=== PATIENT | female | born 1985 | race Two or more races ===

== ENCOUNTER 2020-07-17 10:04 | Outpatient (REF) | payer MEDICAID, SELFPAY ==
[2020-07-17 19:44] LABS: CT PCR NOT DETECTED (Not Detect.); NG PCR NOT DETECTED (Not Detect.)
[2020-07-18 09:32] LABS: BV Int Neg Control Negative (Negative); BV Int Pos Control Positive (Positive)
== END 2020-07-17 10:05 | disposition home or self-care (01) ==
LOC: HO.LAB 10:04
PROVIDERS: Visit Provider Advanced Practice Midwife
DX: Z01.419 Encounter for gynecological examination (general) (routine) without abnormal findings (principal); N89.8 Other specified noninflammatory disorders of vagina; I86.2 Pelvic varices; R10.2 Pelvic and perineal pain
CPT/HCPCS: 87480; 87491; 87510; 87591; 87660

== ENCOUNTER 2020-07-31 15:58 | Outpatient (REF) | payer MEDICAID, SELFPAY ==
--- NOTE | 2020-07-31 16:04 | US_ITS ---
EXAMINATION: US PELVIS TRANSVAGINAL CLINICAL INFORMATION: Pelvic varices COMPARISON: CT of March 17, 2020 and ultrasound of October 24, 2012 TECHNIQUE: Transcutaneous and transvaginal pelvic ultrasound. Transvaginal scanning was performed after voiding to better evaluate the endometrium and adnexa. FINDINGS: The uterus measures 9.6 x 4.6 x 5.8 cm. The uterus is retroverted. 3 mm nabothian cyst present. No suspicious abnormalities region of the cervix. The uterine contour is smooth. The endometrium measures 0.9 cm. No focal abnormalities within the myometrium. The right ovary measures approximately 2.9 x 2.1 x 1.4 cm. The calculated right ovarian volume is approximately 4.5 mL. No right adnexal mass identified. Normal vascularity to the ovary is present. There are numerous prominent ovarian/uterine veins present. The left ovary measures 3.5 x 1.4 x 1.9 cm. The calculated left ovarian volume is approximately 4.9 mL. No abnormal left adnexal masses are identified. There is normal venous and arterial flow within the ovary. Prominent uterine and ovarian veins are present. There is a small amount of free pelvic fluid. US/US pelvic complete IMPRESSION: Prominent ovarian/uterine veins. No significant uterine or ovarian abnormality appreciated.
--- NOTE | 2020-07-31 16:04 | US_ITS ---
EXAMINATION: US PELVIS TRANSVAGINAL CLINICAL INFORMATION: Pelvic varices COMPARISON: CT of March 17, 2020 and ultrasound of October 24, 2012 TECHNIQUE: Transcutaneous and transvaginal pelvic ultrasound. Transvaginal scanning was performed after voiding to better evaluate the endometrium and adnexa. FINDINGS: The uterus measures 9.6 x 4.6 x 5.8 cm. The uterus is retroverted. 3 mm nabothian cyst present. No suspicious abnormalities region of the cervix. The uterine contour is smooth. The endometrium measures 0.9 cm. No focal abnormalities within the myometrium. The right ovary measures approximately 2.9 x 2.1 x 1.4 cm. The calculated right ovarian volume is approximately 4.5 mL. No right adnexal mass identified. Normal vascularity to the ovary is present. There are numerous prominent ovarian/uterine veins present. The left ovary measures 3.5 x 1.4 x 1.9 cm. The calculated left ovarian volume is approximately 4.9 mL. No abnormal left adnexal masses are identified. There is normal venous and arterial flow within the ovary. Prominent uterine and ovarian veins are present. There is a small amount of free pelvic fluid. US/US transvaginal IMPRESSION: Prominent ovarian/uterine veins. No significant uterine or ovarian abnormality appreciated.
== END 2020-07-31 15:59 | disposition home or self-care (01) ==
LOC: HO.US 15:58
PROVIDERS: PCP Family Medicine; Visit Provider Advanced Practice Midwife
DX: I86.2 Pelvic varices (principal); R10.2 Pelvic and perineal pain
CPT/HCPCS: 76830; 76856

== ENCOUNTER → 2020-08-14 11:30 | Outpatient (BNVA) | payer MEDICAID, SELFPAY | PROVIDERS: PCP Family Medicine; Visit Provider Advanced Practice Midwife | DX: Z76.89 Persons encountering health services in other specified circumstances (principal) ==

== ENCOUNTER 2020-08-25 06:57 | Emergency (ER) | payer MEDICAID, SELFPAY ==
[2020-08-25 07:01] VITALS: BP 148/88; PULSE 73; RESP 18; TEMP 36.8; O2SAT 100; BMI 79.4
--- NOTE | 2020-08-25 07:23 | CT_ITS ---
EXAMINATION: CT ABDOMEN AND PELVIS WITH CONTRAST CLINICAL INFORMATION: Right lower quadrant pain COMPARISON: None TECHNIQUE: Multidetector volumetric images were obtained from the superior aspect of the liver through the pubic symphysis following administration 85 mL of Omnipaque 350 intravenous contrast. Sagittal and coronal reformatted images were obtained on the technologist's workstation. Oral contrast: No This CT examination was performed using dose optimization techniques as appropriate, variously including the following: *Automated exposure control *Adjustment of mA and/or kV according to patient size (this includes techniques or standardized protocols for targeted exams where dose is matched to indication/reason for exam; i.e. extremities or head) *Use of iterative reconstruction technique DLP: 799 mGy-cm FINDINGS: LUNG BASES: The visualized lung bases are unremarkable. LIVER, GALLBLADDER, AND BILIARY TREE: The liver is normal in size, shape, and attenuation. No focal hepatic lesion or biliary ductal dilatation is present. Gallbladder unremarkable. PANCREAS: Unremarkable. SPLEEN: Unremarkable. ADRENAL GLANDS: Unremarkable. KIDNEYS AND URETERS: The kidneys are normal in size, shape, and attenuation. No hydronephrosis, hydroureter, or calculi seen. No perinephric stranding. BLADDER: Unremarkable. GASTROINTESTINAL TRACT: The small and large bowel are unremarkable. The appendix is unremarkable. ABDOMINAL WALL: No significant hernia is appreciated. LYMPH NODES: Normal. VASCULAR: Minimal calcific atherosclerotic plaque present within the distal aorta at the bifurcation. PELVIC VISCERA: Uterus and ovaries unremarkable from a CT imaging standpoint. OSSEOUS STRUCTURES: No acute or suspicious osseous abnormalities. CT/CT abdomen pelvis w con IMPRESSION: No acute findings within abdomen or pelvis to explain the patient's symptomatology.
--- NOTE | 2020-08-25 07:24 | ED_ITS ---
HPI - Abdominal Pain General Chief Complaint: Abdominal Pain Stated Complaint: Abd pain Time Seen by Provider: 08/25/20 07:15 Source: patient Mode of arrival: ambulatory Limitations: no limitations History of Present Illness HPI narrative: Patient comes emergency room complaining of right lower quadrant pain. Patient states she has had diffuse abdominal pain for approximately 3-4 days, however now is more localized towards the right. Patient complaining of nausea, no vomiting no diarrhea, complaining of chronic constipation, had a bowel movement this morning after using [id number] medication for consti pation. Patient states that approximately 2 weeks ago she had cervical biopsy done her OBGYN. Patient was being treated for bacterial vaginosis with Flagyl, she finished it about a week ago. Patient states she has been complaining of dysuria, denies flank pain, no fever. Related Data Previous Rx's Medication Instructions Recorded nystatin 100,000 unit/gram topical 1 applic TOPICAL BID #15 g 07/18/20 powder metronidazole 500 mg tablet 500 mg PO BID 7 Days #14 tab 07/24/20 norethindrone (contraceptive) 0.35 0.35 mg PO DAILY #28 tab 08/14/20 mg tablet hyoscyamine sulfate 0.125 mg PO QID PRN #10 tab 08/25/20 Allergies Allergy/AdvReac Type Severity Reaction Status Date / Time No Known Allergies Allergy Mild NOT Verified 08/14/20 11:31 APPLICABLE Review of Systems Review of Systems Constitutional : No Weight loss, No Fever, No Chills, complaining of generalized malaise ENT/Mouth : No Hearing loss, No Ear Pain, No Nasal Congestion, No Sinus Pain, No Hoarseness, No sore throat, No Rhinorrhea, No Swallowing Difficulty Eyes: No Eye Pain, No Swelling, No Redness, No Foreign Body, No Discharge, No Vision Changes Cardiovascular : No Chest Pain, No SOB, No Dyspnea on Exertion, No Orthopnea, No Edema, No Palpitations Respiratory : No Cough, No Sputum, No Wheezing, No Smoke Exposure, No Dyspnea Gastrointestinal : No Nausea, No Vomiting, No Diarrhea, complaining of constipation, diffuse abdominal pain for several days now worse over the right lower quadrant Genitourinary : no irregular bleeding, complaining of Dysuria for several weeks, No Urinary Frequency, No Hematuria, No Urinary Incontinence, No Urgency, No Flank Pain, No Urinary Flow Changes, No Hesitancy Musculoskeletal : No joint pain, No Myalgias, No Joint Swelling Skin : No Skin Lesions, No rash Neuro : No Weakness, No Numbness, No Paresthesias, No Loss of Consciousness, No Dizziness, No Headache Psych : No Anxiety/Panic, No Depression, No SI/HI/AH/VH, No Social Issues, Heme/Lymph: No Bruising, No Bleeding,No Lymphadenopathy Endocrine : No Polyuria, No Polydipsia, No Temperature Intolerance Physical Exam Vital Signs: Vital Signs: Last Vital Signs Temp 98.2 F 08/25/20 07:01 Pulse 73 08/25/20 07:01 Resp 16 08/25/20 08:25 BP 148/88 H 08/25/20 07:01 Pulse Ox 100 08/25/20 07:01 Body Mass Index 79.4 Appearance: Alert. Oriented X3. No acute distress. Eyes: Pupils equal, round and reactive to light. ENT: Pharynx normal. Neck: Normal inspection. Neck supple. No lymph nodes noted. No crepitus CVS: Normal heart rate and rhythm. Pulses normal. Normal S1 and S2 Respiratory: No respiratory distress. Breath sounds normal. No Wheezing. No rales Abdomen: Soft , pain to palpation over the right lower quadrant, mild rebound tenderness, no guarding, No rigidity. No distention. Skin: Skin warm and dry. Normal skin color. Normal skin turgor. Extremities: No lower extremity edema. No lower extremity edema. No Lacerations. No Rash Neuro: Oriented X 3. No motor deficit. No sensory deficit. Moving all extermities. No slurred speech. Course Course Course Narrative: I discussed the labs and imaging with the patient, no acute findings. Patient was tested for COVID-19, on CT scan of the abdomen, the lung bases are visualized, there are unremarkable. I discussed with the patient the CT scan is unremarkable, the appendix is unremarkable I discussed with the patient that this may be a sign of early appendicitis, at this time, her CT scan and lab work are reassuring, however this may be an early sign. Instructed to return to emergency room if she has any worsening pain or if she does not improve. MDM - Abdominal Pain Lab Data Result diagrams: 08/25/20 07:33 08/25/20 07:33 Labs: Lab Results 08/25/20 08/25/20 08/25/20 Range/Units 07:33 07:33 07:41 WBC 7.0 (4.8-10.8) X10*3/uL RBC 3.97 L (4.20-5.50) X10*6/uL Hgb 12.1 (12.0-16.0) g/dl Hct 36.1 L (37-47) % MCV 90.9 (80-98) fL MCH 30.5 (27.0-33.0) pg MCHC 33.5 (31.0-35.0) g/dl RDW 12.7 (11.0-16.0) % Plt Count 323 (160-400) X10*3/uL MPV 9.1 L (9.4-12.3) fL Immature Gran % (Auto) 0.1 (0.0-0.4) % Neut % (Auto) 65.5 (45-73) % Lymph % (Auto) 25.6 (20-40) % [place] % (Auto) 6.2 (2-11) % Eos % (Auto) 2.0 (0-4) % Baso % (Auto) 0.6 (0-2) % Lymph # (Auto) 1.8 (1.2-4.9) X10*3/uL [place] # (Auto) 0.4 (0.1-1.2) X10*3/uL Eos # (Auto) 0.1 (0.0-0.4) X10*3/uL Baso # (Auto) 0.0 (0.0-0.2) X10*3/uL Abs Immat Gran (auto) 0.01 (0.00-0.03) X10*3/uL Absolute Neuts (auto) 4.6 (2.0-8.3) X10*3/uL Absolute Nucleated RBC 0.000 (0.0-0.012) X10*3/uL Nucleated RBC % (auto) 0.0 (0.0-0.2) /100WBC Sodium 138 (135-145) mmol/L Potassium 4.1 (3.3-5.1) mmol/l Chloride 106 (96-108) mmol/L Carbon Dioxide 27 (22-29) mmol/L Anion Gap 9 L (12-20) BUN 13 (9-16) mg/dL Creatinine 0.65 (0.5-1.4) mg/dL Estim Creat Clear Calc 241.2 Estimated GFR > 60 Random Glucose 134 H (60-115) mg/dL Calcium 8.5 (8.4-10.2) mg/dL Total Bilirubin 0.3 (0.0-1.0) mg/dL Direct Bilirubin 0.2 (0.0-0.5) mg/dL AST 14 (5-31) U/L ALT 19 (0-31) U/L Alkaline Phosphatase 82 (39-117) U/L Total Protein 6.6 (6.5-8.0) g/dL Albumin 3.9 (3.5-5.0) g/dL Lipase 23 (8-78) U/L Urine Color YELLOW Urine Appearance CLEAR Urine pH 5.5 (5.0-8.0) Ur Specific [place] 1.025 (1.005-1.025) Urine Protein NEG (NEG-TRACE) MG/DL Urine Glucose (UA) NEG (NEG) MG/DL Urine Ketones NEG (NEG) MG/DL Urine Blood 2+ H (NEG) Urine Nitrite NEG (NEG) Ur Leukocyte Esterase NEG (NEG) Urine RBC 10-14 H (0) /HPF Urine WBC 0-2 (0-4) /HPF Ur Squamous Epith Cells 1+ /LPF Urine Bacteria NONE /LPF Urine Mucus 1+ /LPF Urine Test NEGATIVE (NEGATIVE) Imaging Data CT scan - abdomen: Radiologist's impression: FINDINGS: LUNG BASES: The visualized lung bases are unremarkable. LIVER, GALLBLADDER, AND BILIARY TREE: The liver is normal in size, shape, and attenuation. No focal hepatic lesion or biliary ductal dilatation is present. Gallbladder unremarkable. PANCREAS: Unremarkable. SPLEEN: Unremarkable. ADRENAL GLANDS: Unremarkable. KIDNEYS AND URETERS: The kidneys are normal in size, shape, and attenuation. No hydronephrosis, hydroureter, or calculi seen. No perinephric stranding. BLADDER: Unremarkable. GASTROINTESTINAL TRACT: The small and large bowel are unremarkable. The appendix is unremarkable. ABDOMINAL WALL: No significant hernia is appreciated. LYMPH NODES: Normal. VASCULAR: Minimal calcific atherosclerotic plaque present within the distal aorta at the bifurcation. PELVIC VISCERA: Uterus and ovaries unremarkable from a CT imaging standpoint. OSSEOUS STRUCTURES: No acute or suspicious osseous abnormalities. CT/CT abdomen pelvis w con IMPRESSION: No acute findings within abdomen or pelvis to explain the patient's symptomatology. Discharge Plan Discharge Clinical Impression: Abdominal pain Qualifiers: Abdominal location: right lower quadrant Qualified Code(s): R10.31 - Right lower quadrant pain Patient Disposition: Home, Self-Care Instructions: Abdominal Pain (ED) Additional Instructions: Your CT scan of the abdomen and lab values are stable, if you have any worsening right lower quadrant pain, any new symptoms, please return to the emergency room, as your current symptoms may be an early sign of early appendicitis. At this time, appendicitis is not suspected. Please follow-up with your primary care physician tomorrow. If you have any worsening or new symptoms, please return to the emergency room or call 911. We tested due for COVID-19, your results will be communicated to you if positive within 72 hours. Please remain self isolate until you get to results. If he tests positive, you must quarantine for 14 days Prescriptions: New hyoscyamine sulfate 0.125 mg tablet 0.125 mg PO QID PRN (Reason: dyspepsia) Qty: 10 RF: 0 No Action nystatin 100,000 unit/gram powder 1 applic topical BID Qty: 15 RF: 0 metronidazole [Flagyl] 500 mg tablet 500 mg PO BID 7 Days Qty: 14 RF: 0 norethindrone (contraceptive) 0.35 mg tablet 0.35 mg PO DAILY Qty: 28 RF: 8 PMFSH Past Medical History Medical History Pelvic varices Family History Family History Maternal Aunt Breast cancer in female Mother HTN (hypertension) Social History Social History Alcohol intake: never Smoking Status: Current every day smoker Tobacco Type: Cigarette Use of substances other than those prescribed or required for medical reasons: No Advance Directives: No Advance Directives Information Provided: No
[2020-08-25 07:39] LABS: MANUAL DIFF FLAG NO
[2020-08-25 07:40] LABS: Basophils Percent Auto 0.6 % (0-2); Eosinophils Absolute Auto 0.1 X10*3/uL (0.0-0.4); Hematocrit 36.1 % (37-47); Hemoglobin 12.1 g/dl (12.0-16.0); Imm Gran Abs Auto 0.01 X10*3/uL (0.00-0.03); Imm Gran Pct Auto 0.1 % (0.0-0.4); Lymphocytes Absolute Auto 1.8 X10*3/uL (1.2-4.9); Lymphocytes Percent Auto 25.6 % (20-40); Mean Corpuscular HGB Conc 33.5 g/dl (31.0-35.0); Mean Corpuscular Hemoglobin 30.5 pg (27.0-33.0); Mean Corpuscular Volume 90.9 fL (80-98); Mean Platelet Volume 9.1 fL (9.4-12.3); Monocytes Absolute Auto 0.4 X10*3/uL (0.1-1.2); Monocytes Percent Auto 6.2 % (2-11); Neutrophils Absolute Auto 4.6 X10*3/uL (2.0-8.3); Neutrophils Percent Auto 65.5 % (45-73); Platelet Count 323 X10*3/uL (160-400); Red Blood Count 3.97 X10*6/uL (4.20-5.50); Red Cell Distribution Width 12.7 % (11.0-16.0)
[2020-08-25] MEDS: 0.9 % Sodium Chloride 1,000 ML 999 ML IVCONT (07:40)
[2020-08-25 07:47] LABS: Glucose Urine UA NEG (NEG); Leukocyte Esterase Urine NEG (NEG); Nitrite Urine NEG (NEG); PH 5.5 (5.0-8.0); Specific Gravity - Urine 1.025 (1.005-1.025); Urine Blood 2+ (NEG); Urine Ketones NEG (NEG); Urine Protein NEG (NEG-TRACE)
[2020-08-25 08:06] LABS: Appearance Urine CLEAR; Color Urine YELLOW
[2020-08-25 08:07] LABS: Mucus Urine 1+ /LPF; Squamous Epithelial Cell Urine 1+ /LPF; WBC Urine 0-2 /HPF (0-4)
[2020-08-25 08:11] LABS: UPreg QC Valid YES; Urine Pregnancy NEGATIVE (NEGATIVE)
[2020-08-25 08:19] LABS: Alanine Aminotransferase 19 U/L (0-31); Albumin Level 3.9 g/dL (3.5-5.0); Alkaline Phosphatase 82 U/L (39-117); Aspartate Amino Transferase 14 U/L (5-31); Bilirubin Direct 0.2 mg/dL (0.0-0.5); Bilirubin Total 0.3 mg/dL (0.0-1.0); Blood Urea Nitrogen 13 mg/dL (9-16); Calcium 8.5 mg/dL (8.4-10.2); Creatinine Clr Calc Pharmacy 241.2; Estimated Glomerular Filt Rate > 60; Glucose Random 134 mg/dL (60-115); Lipase 23 U/L (8-78); Total Protein 6.6 g/dL (6.5-8.0)
[2020-08-25 08:25] VITALS: RESP 16
[2020-08-25 08:27] LABS: Anion Gap 9 (12-20); Carbon Dioxide 27 mmol/L (22-29); Chloride 106 mmol/L (96-108); Potassium 4.1 mmol/l (3.3-5.1); Sodium 138 mmol/L (135-145)
[2020-08-25] MEDS: iohexoL 350 MG/ML 100 ML INFUS..BTL 85 ML IV (08:58)
[2020-08-25] MEDS: Ketorolac Tromethamine 30 MG/ML VIAL IVPUSH (09:41)
== END 2020-08-25 10:21 | disposition home or self-care (01) ==
PROVIDERS: Emergency Provider Emergency Medicine; PCP Family Medicine
DX: R10.31 Right lower quadrant pain (principal); Z20.828 Contact with and (suspected) exposure to other viral communicable diseases; F17.210 Nicotine dependence, cigarettes, uncomplicated
CPT/HCPCS: 36415; 74177; 80048; 80076; 81001; 81003; 81025; 83690; 85025; 96361; 96374; 99284; J1885; Q9967; U0003

== ENCOUNTER → 2021-01-24 15:43 | Outpatient (BNVA) | payer MEDICAID, SELFPAY | PROVIDERS: PCP Family Medicine; Visit Provider Surgery | DX: K64.8 Other hemorrhoids (principal); K59.00 Constipation, unspecified; Z79.899 Other long term (current) drug therapy | CPT/HCPCS: 99202 ==

== ENCOUNTER → 2021-05-23 14:43 | Outpatient (BNVA) | payer MEDICAID, SELFPAY | PROVIDERS: PCP Family Medicine; Visit Provider Internal Medicine | DX: R07.2 Precordial pain (principal); E11.8 Type 2 diabetes mellitus with unspecified complications; E66.01 Morbid (severe) obesity due to excess calories | CPT/HCPCS: 93005; 99202 ==

== ENCOUNTER → 2021-08-03 08:40 | Outpatient (BNVA) | payer MEDICAID, SELFPAY | PROVIDERS: PCP Family Medicine; Referring Provider Family Medicine; Visit Provider Physician Assistant Surgical ==

== ENCOUNTER → 2021-08-08 08:21 | Outpatient (BNVA) | payer MEDICAID, SELFPAY | PROVIDERS: PCP Family Medicine; Visit Provider Surgery ==

== ENCOUNTER → 2021-11-21 13:01 | Outpatient (BNVA) | payer MEDICAID, SELFPAY | PROVIDERS: PCP Family Medicine; Referring Provider Family Medicine; Visit Provider Surgery | DX: K64.8 Other hemorrhoids (principal) | CPT/HCPCS: 99212 ==

== ENCOUNTER 2022-01-11 07:32 | Day surgery (SDC) | payer MEDICAID, SELFPAY ==
--- NOTE | 2022-01-09 13:18 | HO.ANESPROP2 ---
Documented by User: Radha Mathew NP 01/09/22 13:18 HPI - Anesthesia Eval Consult details Narrative: 36yo F for EUA,Hemorrhoidectomy PMFSH Active Problems Active Problems: All Active Problems (Updated 08/08/21 @ 11:32 by Meng Tavarez MD) BMI 35.0-35.9,adult (Acute) Obesity (Acute) Type 2 diabetes mellitus with unspecified complications (Acute) Morbid obesity (Acute) Precordial chest pain (Acute) Constipation (Acute) Hemorrhoids with complication (Acute) Surveillance for control, oral contraceptives (Acute) Dysuria (Acute) Yeast dermatitis (Acute) Pelvic varices (Acute) Well woman exam with routine gynecological exam (Acute) control counseling (Acute) Vaginal discharge (Acute) Pelvic pain (Acute) Past Medical History Medical History Constipation Hemorrhoids with complication Pelvic varices Family History Family History Maternal Aunt Breast cancer in female Mother HTN (hypertension) Social History Social History Alcohol intake: never Patient Tobacco Use Status: Current everyday Tobacco user Tobacco use type: Cigarette Cigarettes Per Day: 10 Years Smoked: 16 Smoked in Last 30 Days: Yes Use of substances other than those prescribed or required for medical reasons: No Are you DNR?: No Advance Directives: No Advance Directives Information Provided: Yes Patient : No Meds Allergies Allergy/AdvReac Type Severity Reaction Status Date / Time No Known Allergies Allergy Mild NOT Verified 01/11/22 08:35 APPLICABLE Home Medications Medication Instructions Recorded Confirmed Last Taken Type docusate sodium 100 mg capsule 100 mg PO DAILY 01/24/21 01/24/21 Unknown History (Colace) metformin 500 mg tablet 500 mg PO BID 08/08/21 08/08/21 Unknown History Exam Exam Date and Time: January 09, 2022 1318 Assessment and Plan Assessment Anesthesia Assessment: Chart Reviewed Documented by User: Bethel Busby MD 01/11/22 08:52 PMFSH Past Medical History Medical History Constipation Hemorrhoids with complication Pelvic varices Patient : No Family History Family History Maternal Aunt Breast cancer in female Mother HTN (hypertension) Family history of problems with anesthesia: No Surgical History History of Problems with Anesthesia: No Social History Social History Alcohol intake: never Patient Tobacco Use Status: Current everyday Tobacco user Tobacco use type: Cigarette Cigarettes Per Day: 10 Years Smoked: 16 Smoked in Last 30 Days: Yes Use of substances other than those prescribed or required for medical reasons: No Are you DNR?: No Advance Directives: No Advance Directives Information Provided: Yes Patient : No Meds Allergies Allergy/AdvReac Type Severity Reaction Status Date / Time No Known Allergies Allergy Mild NOT Verified 01/11/22 08:35 APPLICABLE Home Medications Medication Instructions Recorded Confirmed Last Taken Type docusate sodium 100 mg capsule 100 mg PO DAILY 01/24/21 01/24/21 Unknown History (Colace) metformin 500 mg tablet 500 mg PO BID 08/08/21 08/08/21 Unknown History Exam Airway Mallampati Class: I TM Dist: >3cm Neck ROM: Full Loose/Missing/Broken Teeth: No Heart: ok Lungs: ok Assessment and Plan Final Anesthetic Review Family History of Problems with Anesthesia: No History of Problems with Anesthesia: No NPO: Yes ASA Class: II Final Preanesthetic Review: No Changes in Pt Med Stat, Meds/Allgs Chart Reviewed, Consent Obtained/Reviewed and Anes Risks/Benef Reviewed Patient Risk: Intermediate Procedure Risk: Low Anesthetic Plan Anesthetic Plan: GA and Agree w/ Assess. and Plan Disposition: Standard PACU
[2022-01-11] VITALS (13 sets, daily range): BP systolic 101–141; BP diastolic 44–86; PULSE 58–74; RESP 14–18; TEMP 36.1–36.7; O2SAT 96–100; BMI 36.0
[2022-01-11 08:44] LABS: UPreg QC Valid YES; Urine Pregnancy NEGATIVE (NEGATIVE)
[2022-01-11 08:54] LABS: Glucose, Whole Blood 122 mg/dL (60-115)
--- NOTE | 2022-01-11 08:59 | MHC.SHP ---
Pre-Procedural Eval Section A Date of Service: 01/11/22 Section B Chief Complaint: hemorrhoids Details of Present Illness: has had worsening hemorrhoid pain and frequent swelling Relevant Social History: None Present Medications: see Short Stay Collaborative assessment Medical History: Significant History ( obesity, diabetes, atypical chest pain) History of Previous Operations: Relevant previous surgery/procedure and date(s) Allergies: Allergies Allergy/AdvReac Type Severity Reaction Status Date / Time No Known Allergies Allergy Mild NOT Verified 01/11/22 08:35 APPLICABLE Review of Systems Sugical H&P ROS: Negative: Constitution, Cardiovascular, Respiratory, Neurological, Psychiatric, Hem-Onc, Allergic/Immunologic, Gastrointestinal, Genitourinary, Musculoskeletal, Integumentary, Endocrine and Eyes/Ears/Nose/Throat Exam Surgical H&P Exam: Normal: HEENT, Normal: Heart, Normal: Lungs, Normal: Extremities, Normal: Abdomen, Normal: Skin and Normal: Neurological Exam Comment: prominent hemorrhoids right more than left Plan Diagnosis/Plan: Unchanged I have reviewed the history and physical and performed a pertinent physical examination on my patient. No changes have occurred unless specified.
[2022-01-11] MEDS: Lactated Ringers 1,000 ML 100 ML IVCONT (09:12)
--- NOTE | 2022-01-11 10:05 | W.PM.OPN ---
Operative Note Operative Note Date of Service: 01/11/22 Narrative: Preop diagnosis: Internal and external hemorrhoids with pain and bleeding Postop diagnosis: The same Procedure: Exam under anesthesia, hemorrhoidectomy x2 columns Surgeon: Tremaine Rainey MD The patient is a 36-year-old female with chronic problems with pain and bleeding with her hemorrhoidal columns. She wanted to therefore proceed with hemorrhoidectomy. She understood technique of the procedure. She was aware of the risks, benefits, and alternatives She was brought to the operating room. She was placed in prone serge-knife position under general anesthesia via laryngeal mask airway. The buttocks were retracted with wide tape laterally. The perianal area was prepped and draped in the usual sterile fashion. A surgical time-out was done. Examination of the anal orifice revealed bulky hemorrhoidal column on the right. There was a smaller hemorrhoidal column the left. I inserted a Bujennie Graham retractor and examined the anal canal circumferentially. Again these mixed hemorrhoidal columns on both the left and right side were seen. There were no lesions or any other pathology noted . I applied a Arizmendi grasper at the hemorrhoidal column on the right. This was retracted into the field. I made a figure of 8 stitch with a chromic 3-0 at the pedicle past the dentate line. I made an incision around the hemorrhoidal column all the way to the perianal skin using blade 15. I excised this hemorrhoidal column above the plane of the sphincters along this incision all the way to the pedicle. I closed the incision with a running chromic 3-0 stitch. Multiple hemostatic [id number] sutures were placed for oozing areas I then applied a Arizmendi grasper at the hemorrhoidal column on the left. I made a ribgab-[id number] stitch at the pedicle using chromic 3-0 and made an incision around this hemorrhoidal column all to the perianal skin using blade 15. I excised this hemorrhoidal column above the plane of sphincters using scissors. I closed this incision with a running chromic 3-0 stitch. Again prostatic feokpl-ee-ghuhw sutures were placed Once hemostasis was ensured, I proceeded to then infiltrated the perianal area with Marcaine 0.5% for postop analgesia. I placed a rolled Gelfoam as a packing into the anal canal. The procedure was then completed The patient tolerated procedure well. There were no complications noted. Initial and final counts sponges instruments were correct. Estimated blood loss was about 30 cc The patient was extubated without difficulty and transferred to the recovery room with stable vital signs.
--- NOTE | 2022-01-11 10:09 | PC.NURSE ---
Patient unable to remove jewelry (rings x2). Patient educated on risks of bringing metal into the OR. OR team aware of jewelry on.
[2022-01-11] MEDS: oxyCODONE HCl Immed Release 5 MG TABLET 10 MG PO (10:23)
[2022-01-11] MEDS: Acetaminophen 325 MG TABLET 650 MG PO (10:43)
[2022-01-11] MEDS: fentaNYL citrate/PF 100 MCG/2 ML VIAL 50 MCG IVPUSH ×2 (10:44→11:17)
[2022-01-11] MEDS: oxyCODONE HCl Immed Release 5 MG TABLET PO (11:15)
== END 2022-01-11 13:15 | disposition home or self-care (01) ==
PROVIDERS: Nurse Practitioner; PCP Family Medicine; Visit Provider Surgery
PROC: (CPT 46260; principal; 2022-01-11 10:00)
DX: K64.8 Other hemorrhoids (principal); K64.4 Residual hemorrhoidal skin tags; K59.00 Constipation, unspecified; I86.2 Pelvic varices; E11.9 Type 2 diabetes mellitus without complications; Z79.84 Long term (current) use of oral hypoglycemic drugs; E66.01 Morbid (severe) obesity due to excess calories; Z68.37 Body mass index [BMI] 37.0-37.9, adult; F17.210 Nicotine dependence, cigarettes, uncomplicated
CPT/HCPCS: 46260; 81025; 82947; 88304; J1100; J1885; J2250; J2405; J3010

== ENCOUNTER → 2022-01-25 15:19 | Outpatient (BNVA) | payer MEDICAID, SELFPAY | PROVIDERS: PCP Family Medicine; Visit Provider Surgery | DX: Z13.89 Encounter for screening for other disorder (principal) ==

== ENCOUNTER 2022-03-29 16:09 | Emergency (ER) | payer MEDICAID, SELFPAY ==
--- NOTE | ~2022-03-29 | CT_ITS ---
EXAMINATION: CT ABDOMEN AND PELVIS WITHOUT CONTRAST CLINICAL INFORMATION: Abdominal pain, urgency, evaluate for calculi versus pyelonephritis COMPARISON: CT abdomen pelvis 08/25/2020 TECHNIQUE: Multidetector volumetric imaging was performed from the superior aspect of the liver through the pubic symphysis. Sagittal and coronal reformatted images were obtained on the technologist's workstation. This CT examination was performed using dose optimization techniques as appropriate, variously including the following: *Automated exposure control *Adjustment of mA and/or kV according to patient size (this includes techniques or standardized protocols for targeted exams where dose is matched to indication/reason for exam; i.e. extremities or head) *Use of iterative reconstruction technique DLP: 849 mGy-cm FINDINGS: LUNG BASES: Unremarkable. ABDOMINAL AND PELVIC WALL: Unremarkable. LIVER AND BILIARY TREE: Hypoattenuating hepatic parenchyma suggesting hepatic steatosis. GALLBLADDER: Unremarkable. PANCREAS: Unremarkable. SPLEEN: Unremarkable. ADRENAL GLANDS: Unremarkable. KIDNEYS AND URETERS: No hydronephrosis or nephrolithiasis. Lack of intravenous contrast limits assessment for pyelonephritis however there is no asymmetric perinephric fat stranding to suggest underlying infection. GASTROINTESTINAL TRACT: Large and small bowel are unremarkable. No findings to suggest appendicitis. VASCULAR: Unremarkable. LYMPH NODES/PERITONEUM: No lymphadenopathy. FREE FLUID: Small volume of simple free fluid in the pelvic within physiologic limits of volume. BLADDER: Unremarkable. PELVIC VISCERA: Unremarkable. OSSEOUS STRUCTURES: Unremarkable. CT/CT abdomen pelvis wo con IMPRESSION: No hydronephrosis or nephrolithiasis. Lack of intravenous contrast limits assessment for pyelonephritis however there is no asymmetric perinephric fat stranding to suggest underlying infection. Hepatic steatosis.
[2022-03-29 16:18] VITALS: BP 146/90; PULSE 97; RESP 20; TEMP 36.4; O2SAT 96; BMI 37.5
[2022-03-29 16:35] LABS: MANUAL DIFF FLAG NO
[2022-03-29 16:36] LABS: Appearance Urine HAZY; Color Urine YELLOW; Glucose Urine UA NEG (NEG); Leukocyte Esterase Urine 1+ (NEG); Nitrite Urine NEG (NEG); PH 5.5 (5.0-8.0); Specific Gravity - Urine >= 1.030 (1.005-1.025); UACC Culture Trigger YES; Urine Blood NEG (NEG); Urine Ketones NEG (NEG); Urine Protein NEG (NEG-TRACE)
[2022-03-29 16:37] LABS: Glucose, Whole Blood 174 mg/dL (60-115)
[2022-03-29 16:44] LABS: Basophils Absolute Auto 0.1 X10*3/uL (0.0-0.2); Basophils Percent Auto 0.4 % (0-2); Eosinophils Absolute Auto 0.2 X10*3/uL (0.0-0.4); Eosinophils Percent Auto 1.4 % (0-4); Hematocrit 40.2 % (37.0-47.0); Hemoglobin 13.7 g/dl (12.0-16.0); Imm Gran Abs Auto 0.05 X10*3/uL (0.00-0.03); Imm Gran Pct Auto 0.4 % (0.0-0.4); Lymphocytes Absolute Auto 3.2 X10*3/uL (1.2-4.9); Lymphocytes Percent Auto 26.4 % (20-40); Mean Corpuscular HGB Conc 34.1 g/dl (31.0-35.0); Mean Corpuscular Hemoglobin 30.9 pg (27.0-33.0); Mean Corpuscular Volume 90.7 fL (80.0-98.0); Mean Platelet Volume 9.2 fL (9.4-12.3); Monocytes Absolute Auto 0.8 X10*3/uL (0.1-1.2); Monocytes Percent Auto 6.9 % (2-11); Neutrophils Absolute Auto 7.8 x10*3/uL (2.0-8.3); Neutrophils Percent Auto 64.5 % (45-73); Platelet Count 329 X10*3/uL (160-400); Red Blood Count 4.43 X10*6/uL (4.20-5.50); Red Cell Distribution Width 13.2 % (11.0-16.0)
[2022-03-29 16:51] LABS: Alanine Aminotransferase 56 U/L (0-31); Albumin Level 4.7 g/dL (3.5-5.0); Alkaline Phosphatase 97 U/L (39-117); Anion Gap 13 (12-20); Aspartate Amino Transferase 25 U/L (5-31); Bilirubin Total 0.5 mg/dL (0.0-1.0); Blood Urea Nitrogen 12 mg/dL (9-16); Calcium 9.6 mg/dL (8.4-10.2); Carbon Dioxide 26 mmol/L (22-29); Chloride 103 mmol/L (96-108); Creatinine Clr Calc Pharmacy 118.5; Estimated Glomerular Filt Rate > 60; Glucose Random 177 mg/dL (60-115); Sodium 138 mmol/L (135-145); Total Protein 8.2 g/dL (6.5-8.0)
[2022-03-29 17:19] LABS: Bacteria Urine 2+ /LPF; Calcium Oxalate Crystals Urine TRACE /LPF; Mucus Urine 1+ /LPF; Squamous Epithelial Cell Urine 4+ /LPF
[2022-03-29 17:22] LABS: Glucose, Whole Blood 163 mg/dL (60-115)
[2022-03-29 17:46] LABS: Lipase 26 U/L (8-78)
[2022-03-29 17:48] VITALS: BP 113/71; PULSE 72; RESP 18; O2SAT 96
[2022-03-29 17:52] LABS: HCG Quantitative < 2 mIU/mL
--- NOTE | 2022-03-29 17:52 | ED.ABDPAIN ---
HPI - Abdominal Pain General Chief Complaint: Abdominal Pain Stated Complaint: Abdominal pain Time Seen by Provider: 03/29/22 17:07 Source: patient Mode of arrival: ambulatory Limitations: no limitations History of Present Illness HPI narrative: Patient presents emergency department for evaluation of diffuse abdominal hand lower back pain. Symptom onset was 1.5 week she states that she was evaluated at an urgent care 3 days ago, was initially given a prescription for Cipro for urinary tract infection, but was contacted the next day and advised to stop taking the medication therefore she discarded it. She presents today as she continues to have persistent pain, in addition to mild dysuria and urinary urgency. Denies any history of renal calculi or recent urinary tract infection, no hematuria, no fevers, no chills, no incontinence. She has had some and associated nausea but no vomiting. Has had soft loose stools but no overt diarrhea. Related Data Home Medications Medication Instructions Recorded Confirmed docusate sodium 100 mg capsule 100 mg PO DAILY 01/24/21 01/24/21 (Colace) metformin 500 mg tablet 500 mg PO BID 08/08/21 08/08/21 Previous Rx's Medication Instructions Recorded docusate sodium 100 mg capsule 100 mg PO BID #60 caps 01/24/21 (Colace) ibuprofen 600 mg tablet 600 mg PO Q6H PRN pain #30 tabs 01/11/22 oxycodone-acetaminophen 5 mg-325 1 tab PO Q4-6H PRN pain, severe 01/29/22 mg tablet (Percocet) #10 tabs ciprofloxacin HCl 500 mg tablet 500 mg PO Q12H 7 days #14 tabs 03/29/22 Allergies Allergy/AdvReac Type Severity Reaction Status Date / Time No Known Allergies Allergy Mild NOT Verified 03/29/22 16:18 APPLICABLE Review of Systems Review of Systems Constitutional : No Weight loss, No Fever, No Chills ENT/Mouth :? No sore throat, No Rhinorrhea Eyes: No Swelling, No Redness Cardiovascular : No Chest Pain, No SOB, No Edema Respiratory : No Cough, No Sputum, No Wheezing Gastrointestinal : Positive Nausea, no Vomiting, no Diarrhea, positive abdominal pain, No Hematochezia, No Melena Genitourinary : Positive Dysuria, No Urinary Frequency, No Hematuria, positive Urgency? Musculoskeletal : No joint pain, No Myalgias, No Joint Swelling Skin : No Skin Lesions, No rash Neuro : No Weakness, No Numbness, No Dizziness, No Headache Psych : No Anxiety/Panic, No Depression Heme/Lymph: No Bruising, No Lymphadenopathy Endocrine : No Polyuria, No Polydipsia Yes all other systems are reviewed and are negative FORMERLY [facility], [facility] Past Medical History Attestation statement: The following information was validated with the patient. Source: old records reviewed Medical History Constipation Hemorrhoids with complication Pelvic varices Surgical History History of hemorrhoidectomy Family History Family History Maternal Aunt Breast cancer in female Mother HTN (hypertension) Social History Social History Alcohol intake: never Patient Tobacco Use Status: Current everyday Tobacco user Tobacco use type: Cigarette Cigarettes Per Day: 10 Years Smoked: 16 Use of substances other than those prescribed or required for medical reasons: No Advance Directives: No Advance Directives Information Provided: Yes Physical Exam ED Vital Signs: Vital Signs - 24 hr 03/29/22 16:18 03/29/22 17:48 03/29/22 19:06 Temperature 97.6 F 98.1 F Pulse Rate 97 72 70 Respiratory Rate 20 18 16 Blood Pressure 146/90 H 113/71 100/54 L Pulse Oximetry 96 96 98 Oxygen Delivery Method Room Air Room Air Room Air 03/29/22 19:43 Temperature 98.1 F Pulse Rate 64 Respiratory Rate 18 Blood Pressure 102/55 L Pulse Oximetry 98 Oxygen Delivery Method Room Air BMI result Body Mass Index 37.5 Appearance: Alert.?Oriented to person, place and time. No acute distress.?Normal affect. Eyes: Pupils equal, round and reactive to light.? ENT: Pharynx normal.?? Neck: Normal inspection.? Neck supple.?? CVS: Heart sounds normal. Normal heart rate and rhythm.? Pulses normal.?? Respiratory: No respiratory distress.? Lung sounds clear to auscultation bilaterally?? Abdomen: Soft and non-tender. Normoactive bowel sounds. No pulsatile mass.??Mild bilateral CVA tenderness. Negative Rovsing sign, negative obturator's sign, negative psoas sign, no guarding or rebound tenderness, no rigidity. Skin: Skin warm and dry.? Normal skin color.? ?? Extremities: No lower extremity edema.? Neuro: Moves all extremities spontaneously. Sensation intact bilaterally. No motor deficits Ambulates with normal steady gait. Mild bilateral CVA tenderness Course Course Course Narrative: Patient is a 36-year-old female presenting to emergency department for evaluation of abdominal pain, lower back pain, urinary symptoms. Reportedly had urinalysis done a few days ago but was advised not consistent with urinary tract infection. Abdominal exam is overall benign, not consistent with appendicitis, diverticulitis, cholecystitis. She does have some mild CVA tenderness, given her additional to urinary symptoms, will obtain CBC, CMP, urinalysis, and urine . Reevaluation(s) Reevaluation #1: Overall is well appearing, initially noted to have heart rate of 97, time of exam was 72, is afebrile, urinalysis reveals 1+ leuk esterase and WBC 10-14 cm however also 4+ squamous epithelial cells, there may be component of urogenital contamination, however given her urinary urgency, will treat with Rocephin, has mild bilateral CVA tenderness, will obtain CT of the abdomen to exclude pyelonephritis or nephrolithiasis. Low suspicion for urosepsis at this time, would defer blood cultures and lactic acid. Time: 17:52 Reevaluation #2: CT of the abdomen and pelvis is unremarkable. Tolerating p.o. fluids and solids without complication. Symptoms likely consistent to urinary tract infection or possible early pyelonephritis, discussed his findings with patient, will cover treatment with Cipro at this time, discussed worsening signs and symptoms to return back to the emergency department for, otherwise advised outpatient follow-up with her primary care provider within 3 days. She verbalized understanding, and was discharged home in stable condition. Time: 19:12 MDM - Abdominal Pain Medical Records Attestation: I reviewed the patient's medical records. Lab Data Attestation: I reviewed the patient's lab results. Result diagrams: 03/29/22 16:29 03/29/22 16:29 Labs: Lab Results 03/29/22 03/29/22 03/29/22 Range/Units 16:29 16:29 16:29 WBC 12.0 H (4.8-10.8) X10*3/uL RBC 4.43 (4.20-5.50) X10*6/uL Hgb 13.7 (12.0-16.0) g/dl Hct 40.2 (37.0-47.0) % MCV 90.7 (80.0-98.0) fL MCH 30.9 (27.0-33.0) pg MCHC 34.1 (31.0-35.0) g/dl RDW 13.2 (11.0-16.0) % Plt Count 329 (160-400) X10*3/uL MPV 9.2 L (9.4-12.3) fL Immature Gran % (Auto) 0.4 (0.0-0.4) % Neut % (Auto) 64.5 (45-73) % Lymph % (Auto) 26.4 (20-40) % [place] % (Auto) 6.9 (2-11) % Eos % (Auto) 1.4 (0-4) % Baso % (Auto) 0.4 (0-2) % Lymph # (Auto) 3.2 (1.2-4.9) X10*3/uL [place] # (Auto) 0.8 (0.1-1.2) X10*3/uL Eos # (Auto) 0.2 (0.0-0.4) X10*3/uL Baso # (Auto) 0.1 (0.0-0.2) X10*3/uL Abs Immat Gran (auto) 0.05 H (0.00-0.03) X10*3/uL Absolute Neuts (auto) 7.8 (2.0-8.3) x10*3/uL Absolute Nucleated RBC 0.000 (0.0-0.012) X10*3/uL Nucleated RBC % (auto) 0.0 (0.0-0.2) /100WBC Sodium 138 (135-145) mmol/L Potassium 4.0 (3.3-5.1) mmol/L Chloride 103 (96-108) mmol/L Carbon Dioxide 26 (22-29) mmol/L Anion Gap 13 (12-20) BUN 12 (9-16) mg/dL Creatinine 0.79 (0.5-1.4) mg/dL Estim Creat Clear Calc 118.5 Estimated GFR > 60 POC Glucose (60-115) mg/dL Random Glucose 177 H (60-115) mg/dL Calcium 9.6 D (8.4-10.2) mg/dL Total Bilirubin 0.5 (0.0-1.0) mg/dL AST 25 D (5-31) U/L ALT 56 H (0-31) U/L Alkaline Phosphatase 97 (39-117) U/L Total Protein 8.2 H D (6.5-8.0) g/dL Albumin 4.7 D (3.5-5.0) g/dL Lipase 26 (8-78) U/L Beta HCG, Quant < 2 mIU/mL Urine Color YELLOW Urine Appearance HAZY Urine pH 5.5 (5.0-8.0) Ur Specific [place] >= 1.030 H (1.005-1.025) Urine Protein NEG (NEG-TRACE) MG/DL Urine Glucose (UA) NEG (NEG) MG/DL Urine Ketones NEG (NEG) MG/DL Urine Blood NEG (NEG) Urine Nitrite NEG (NEG) Ur Leukocyte Esterase 1+ H (NEG) Urine RBC 1-4 (0) /HPF Urine WBC 10-14 H (0-4) /HPF Ur Squamous Epith Cells 4+ /LPF Calcium Oxalate Crystal TRACE /LPF Urine Bacteria 2+ /LPF Urine Mucus 1+ /LPF 03/29/22 03/29/22 Range/Units 16:33 17:18 WBC (4.8-10.8) X10*3/uL RBC (4.20-5.50) X10*6/uL Hgb (12.0-16.0) g/dl Hct (37.0-47.0) % MCV (80.0-98.0) fL MCH (27.0-33.0) pg MCHC (31.0-35.0) g/dl RDW (11.0-16.0) % Plt Count (160-400) X10*3/uL MPV (9.4-12.3) fL Immature Gran % (Auto) (0.0-0.4) % Neut % (Auto) (45-73) % Lymph % (Auto) (20-40) % [place] % (Auto) (2-11) % Eos % (Auto) (0-4) % Baso % (Auto) (0-2) % Lymph # (Auto) (1.2-4.9) X10*3/uL [place] # (Auto) (0.1-1.2) X10*3/uL Eos # (Auto) (0.0-0.4) X10*3/uL Baso # (Auto) (0.0-0.2) X10*3/uL Abs Immat Gran (auto) (0.00-0.03) X10*3/uL Absolute Neuts (auto) (2.0-8.3) x10*3/uL Absolute Nucleated RBC (0.0-0.012) X10*3/uL Nucleated RBC % (auto) (0.0-0.2) /100WBC Sodium (135-145) mmol/L Potassium (3.3-5.1) mmol/L Chloride (96-108) mmol/L Carbon Dioxide (22-29) mmol/L Anion Gap (12-20) BUN (9-16) mg/dL Creatinine (0.5-1.4) mg/dL Estim Creat Clear Calc Estimated GFR POC Glucose 174 H 163 H (60-115) mg/dL Random Glucose (60-115) mg/dL Calcium (8.4-10.2) mg/dL Total Bilirubin (0.0-1.0) mg/dL AST (5-31) U/L ALT (0-31) U/L Alkaline Phosphatase (39-117) U/L Total Protein (6.5-8.0) g/dL Albumin (3.5-5.0) g/dL Lipase (8-78) U/L Beta HCG, Quant mIU/mL Urine Color Urine Appearance Urine pH (5.0-8.0) Ur Specific [place] (1.005-1.025) Urine Protein (NEG-TRACE) MG/DL Urine Glucose (UA) (NEG) MG/DL Urine Ketones (NEG) MG/DL Urine Blood (NEG) Urine Nitrite (NEG) Ur Leukocyte Esterase (NEG) Urine RBC (0) /HPF Urine WBC (0-4) /HPF Ur Squamous Epith Cells /LPF Calcium Oxalate Crystal /LPF Urine Bacteria /LPF Urine Mucus /LPF Imaging Data CT scan - abdomen: Radiologist's impression: CT/CT abdomen pelvis wo con IMPRESSION: ? No hydronephrosis or nephrolithiasis.? Lack of intravenous contrast limits assessment for pyelonephritis however there is no asymmetric perinephric fat stranding to suggest underlying infection. ? Hepatic steatosis. Discharge Plan Discharge Clinical Impression: Urinary tract infection Patient Disposition: Home, Self-Care Instructions: Urinary Tract Infection in Women (ED) Additional Instructions: You have been given a prescription for an antibiotic, please complete this entire course. Be sure to stay well hydrated, drink plenty of fluids. Return to the emergency department any new or worsening symptoms or concerns such as fevers, nausea constant vomiting, severe worsening abdominal/back pain, inability to urinate Please contact your primary care provider to arrange for a follow-up visit within 3 days. Prescriptions: New ciprofloxacin HCl 500 mg tablet 500 mg PO Q12H 7 Days Qty: 14 0RF No Action oxycodone-acetaminophen [Percocet] 5-325 mg tablet 1 tab PO Q4-6H PRN (Reason: pain, severe) Qty: 10 0RF ibuprofen 600 mg tablet 600 mg PO Q6H PRN (Reason: pain) Qty: 30 0RF docusate sodium [Colace] 100 mg capsule 100 mg PO DAILY docusate sodium [Colace] 100 mg capsule 100 mg PO BID Qty: 60 2RF metformin 500 mg tablet 500 mg PO BID Interventions: ED Discharge Assessment Last Done: 03/29/22 19:48 Discharge Date/Time: 03/29/22 19:49
[2022-03-29] MEDS: ondansetron HCL 4 MG/2 ML VIAL IVPUSH (18:01)
[2022-03-29] MEDS: 0.9 % Sodium Chloride 1,000 ML 999 ML IV (18:02)
[2022-03-29] MEDS: cefTRIAXone sodium 1 GM in 0.9 % Sodium Chloride 50 ML IV (18:02)
[2022-03-29] MEDS: Ketorolac Tromethamine 30 MG/ML VIAL IVPUSH (18:47)
--- NOTE | 2022-03-29 19:04 | PC.NURSE ---
Assumed care of this pt. at 1900 - report from Nydia Jose RN
[2022-03-29 19:06] VITALS: BP 100/54; PULSE 70; RESP 16; TEMP 36.7; O2SAT 98
[2022-03-29 19:43] VITALS: BP 102/55; PULSE 64; RESP 18; TEMP 36.7; O2SAT 98
== END 2022-03-29 19:49 | disposition home or self-care (01) ==
PROVIDERS: Nurse Practitioner Family; Emergency Provider Student in an Organized Health Care Education/Training Program; PCP Family Medicine
DX: N39.0 Urinary tract infection, site not specified (principal); R10.9 Unspecified abdominal pain; M54.50 Low back pain, unspecified; Z79.899 Other long term (current) drug therapy; F17.210 Nicotine dependence, cigarettes, uncomplicated; Z71.6 Tobacco abuse counseling
CPT/HCPCS: 36415; 74176; 80053; 81001; 82947; 83690; 84702; 85025; 87086; 96365; 96375; 99284; 99285; J0696; J1885; J2405

== ENCOUNTER → 2022-05-14 09:27 | Outpatient (BNVA) | payer MEDICAID, SELFPAY | PROVIDERS: PCP Family Medicine; Visit Provider Nurse Practitioner Family | DX: R10.2 Pelvic and perineal pain (principal); K64.9 Unspecified hemorrhoids; K59.00 Constipation, unspecified | CPT/HCPCS: 99202 ==

== ENCOUNTER 2022-05-15 16:31 | Emergency (ER) | payer MEDICAID, SELFPAY ==
--- NOTE | ~2022-05-15 | CT_ITS ---
EXAMINATION: CT HEAD WITHOUT CONTRAST CLINICAL INFORMATION: Confusion. Headache. Left eye pain COMPARISON: CT head 10/19/2011 TECHNIQUE: Contiguous axial imaging was performed from the skull base to vertex without intravenous administration of contrast. Coronal and sagittal reformatted images are performed at the CT scanner. [This CT examination was performed using dose optimization techniques as appropriate, variously including the following: *Automated exposure control *Adjustment of mA and/or kV according to patient size (this includes techniques or standardized protocols for targeted exams where dose is matched to indication/reason for exam; i.e. extremities or head) *Use of iterative reconstruction technique] DLP: 731 mGy-cm. FINDINGS: There is no evidence of acute intracranial hemorrhage or territorial infarction. No abnormal mass-effect or midline shift is seen. Mc to white matter differentiation is well preserved. No extra-axial fluid collections are identified. The ventricles are normal in size. There is no abnormal attenuation within the brain parenchyma. There is no osseous abnormality. Mucosal thickening in AT the left maxillary sinus. Mucosal thickening in the ethmoid sinuses. Mastoid air cells and middle ear cavities are normally aerated. CT/CT head/brain wo IV con IMPRESSION: 1. No acute intracranial abnormality. 2. Sinus disease.
[2022-05-15 17:10] VITALS: BP 106/79; PULSE 84; RESP 18; TEMP 36.6; O2SAT 96; BMI 37.0
--- NOTE | 2022-05-15 17:22 | ED.GENADULT ---
HPI - General Adult General Chief complaint: Eye Problems Stated complaint: left eye pain Time Seen by Provider: 05/15/22 17:22 Source: patient Mode of arrival: ambulatory Limitations: no limitations History of Present Illness HPI narrative: Patient is a 37 year old female presenting to the emergency department today with left eye pain. Patient states that starting yesterday she began to have left eye pain and a headache with pressure. Patient denies any dizziness, lightheadedness, abdominal pain, nausea, vomiting, fever, chills, blurry vision, double vision, loss of vision, chest pain, difficulty breathing, shortness of breath, back pain, night sweats, pain with urination, increased urinary frequency, increased urinary urgency, blood in her urine or stool, syncope or a near syncopal episode, recent trauma or falls, bowel incontinence, bladder incontinence, bowel retention, bladder retention, or any other complaints at this time. Onset (ago): day(s) (1) Location: head and eyes (left) Severity: mild Severity scale (1-10): 2 Quality: aching and dull Pain Consistency: constant Relieving factors: none Exacerbating factors: none Associated symptoms: denies other symptoms Treatments prior to arrival: none Related Data Home Medications Medication Instructions Recorded Confirmed metformin 500 mg tablet 500 mg PO BID 08/08/21 08/08/21 Previous Rx's Medication Instructions Recorded ibuprofen 600 mg tablet 600 mg PO Q6H PRN pain #30 tabs 01/11/22 oxycodone-acetaminophen 5 mg-325 1 tab PO Q4-6H PRN pain, severe 01/29/22 mg tablet (Percocet) #10 tabs ciprofloxacin HCl 500 mg tablet 500 mg PO Q12H 7 days #14 tabs 03/29/22 docusate sodium 100 mg capsule 100 mg PO BEDTIME #90 caps 05/14/22 hydrocortisone 2.5 % topical cream 1 appl NE BID-QID PRN hemorrhoids 05/14/22 with perineal applicator #30 grams (Proctosol HC) methylcellulose (laxative) 500 mg 500 mg PO DAILY #90 tabs 05/14/22 tablet (Citrucel) doxycycline hyclate 100 mg tablet 100 mg PO BID 7 days #14 tabs 05/15/22 Allergies Allergy/AdvReac Type Severity Reaction Status Date / Time No Known Allergies Allergy Mild NOT Verified 05/14/22 09:32 APPLICABLE Review of Systems Constitutional: Constitutional: Reports no additional constitutional complaints, Denies chills, Denies fever(s), Reports headache(s) and Denies night sweats Eyes: Eyes: Reports no additional eye complaints, Denies blurry vision, Denies change in vision, Denies diplopia, Denies eye discharge, Denies loss of vision and Reports eye pain (around left eye) ENT: Denies dizziness and Reports headache(s) Cardiovascular: Cardiovascular: Reports no additional cardiovascular complaints, Denies chest pain, Denies lightheadedness, Denies Loss of Consciousness and Denies dyspnea Respiratory: Respiratory: Reports no additional respiratory complaints and Denies dyspnea Gastrointestinal: Gastrointestinal: Reports no additional gastrointestinal complaints, Denies abdominal pain, Denies melena, Denies hematochezia, Denies change in bowel habits and Denies change in stool character Genitourinary: Genitourinary: Denies hematuria, Denies urinary frequency, Denies dysuria, Denies urinary incontinence, Denies urinary hesitancy and Denies urinary urgency Musculoskeletal: Musculoskeletal: Reports no additional musculoskeletal complaints, Denies numbness and Denies tingling Neurologic: Denies dizziness, Reports headache(s), Denies loss of vision, Denies numbness and Denies tingling Psychiatric: Psychiatric: Reports no additional psychiatric complaints Endocrine: Endocrine: Reports no additional endocrine complaints Hematologic/Lymphatic: Hematologic/Lymphatic: Reports no additional hematologic/lymphatic complaints Allergic/Immunologic: Allergic/Immunologic: Reports no additional allergic/immunologic complaints PMFSH Past Medical History Attestation statement: The following information was validated with the patient. Source: old records reviewed Medical History Constipation Hemorrhoids with complication Pelvic varices Surgical History History of hemorrhoidectomy Family History Family History Maternal Aunt Breast cancer in female Mother HTN (hypertension) Social History Social History Alcohol intake: never Patient Tobacco Use Status: Current everyday Tobacco user Tobacco use type: Cigarette Cigarettes Per Day: 10 Years Smoked: 16 Advance Directives: No Advance Directives Information Provided: No Physical Exam ED Vital Signs: Vital Signs - 24 hr 05/15/22 17:10 Temperature 97.8 F Pulse Rate 84 Respiratory Rate 18 Blood Pressure 106/79 Pulse Oximetry 96 Oxygen Delivery Method Room Air BMI result Body Mass Index 37.0 Const General: cooperative, no acute distress, alert and awake Nutritional Appearance: well nourished Orientation/consciousness: patient oriented x3 Limitations: no limitations HENMT Head: Yes normal to inspection and Yes atraumatic Ears: hearing grossly normal bilaterally and external ears normal General nose exam: Normal external nose present, no nasal discharge noted and no epistaxis Face and sinus: Yes normal facial exam, No abrasion and No laceration Mouth: Normal oral and palatal mucosa present, no drooling and no muffled voice Eyes General: appearance normal, both eyes and all related structures Periorbital: periorbital findings normal Eyelids: Yes eyelids normal Conjunctivae: conjunctivae normal Pupils: Equal, round and reactive pupils present EOM: EOMs intact bilaterally Neck Neck: Yes normal visual inspection, Yes full ROM and Yes no lymphadenopathy Chest Chest palpation & inspection: normal inspection of the chest Resp Effort & Inspection: normal respiratory effort and able to speak in complete sentences Auscultation: clear to auscultation bilaterally Cardio Rate: regular rate Rhythm: regular rhythm GI Inspection: Yes normal to inspection Neuro General: patient oriented x3 and moves all extremities Cranial nerves: Yes Equal, round and reactive pupils present Cognition (Neuro): normal cognition Motor exam (neuro): 5/5 motor strength present throughout Sensory Exam: Normal double simultaneous stimulation for sensation Coordination: [id number] test normal Extrem General: Yes normal to inspection, Yes full ROM and Yes capillary refill normal Psych Appearance: grossly normal Mental Status: mental status grossly normal Affect: normal affect Attitude: cooperative Thought process: Normal thought process present Thought content: Normal thought content present Insight: Good insight present (Psych) Medical Decision Making MDM Narrative Medical decision making narrative: Patient is a 37 year old female presenting to the emergency department today with left eye pressure and a headache. Patient's physical exam was unremarkable. Patient's blood work was unremarkable. Patient's urine showed no acute process. Patient's EKG was unremarkable. Patient's head CT showed no acute process. Patient's clinical presentation is consistent with an acute sinusitis. I explained my physical exam findings as well as all test results to the patient. I answered all questions asked by the patient. I stressed the importance of the patient taking her medication as prescribed. I stressed the importance of the patient following up with her primary care provider and if the symptoms persist, an ENT. I stressed the importance of the patient returning to the emergency department immediately if her symptoms were to worsen or if she were to develop any dizziness, shortness of breath, difficulty breathing, chest pain, blurry vision, loss of vision, nausea, vomiting, abdominal pain, fever, chills, back pain, or any other complaints. Patient verbalized agreement and understanding with this treatment plan and discharge. Medical Records Medical records reviewed: Yes I reviewed the patient's medical records. Lab Data Lab results reviewed: Yes I reviewed the patient's lab results. Result diagrams: 05/15/22 17:55 05/15/22 17:55 Labs: Lab Results 05/15/22 05/15/22 Range/Units 17:55 17:55 WBC 10.4 (4.8-10.8) X10*3/uL RBC 4.14 L (4.20-5.50) X10*6/uL Hgb 12.8 (12.0-16.0) g/dl Hct 37.5 (37.0-47.0) % MCV 90.6 (80.0-98.0) fL MCH 30.9 (27.0-33.0) pg MCHC 34.1 (31.0-35.0) g/dl RDW 12.5 (11.0-16.0) % Plt Count 332 (160-400) X10*3/uL MPV 9.3 L (9.4-12.3) fL Immature Gran % (Auto) 0.3 (0.0-0.4) % Neut % (Auto) 55.6 (45-73) % Lymph % (Auto) 35.0 (20-40) % [place] % (Auto) 5.3 (2-11) % Eos % (Auto) 3.1 (0-4) % Baso % (Auto) 0.7 (0-2) % Lymph # (Auto) 3.7 (1.2-4.9) X10*3/uL [place] # (Auto) 0.6 (0.1-1.2) X10*3/uL Eos # (Auto) 0.3 (0.0-0.4) X10*3/uL Baso # (Auto) 0.1 (0.0-0.2) X10*3/uL Abs Immat Gran (auto) 0.03 (0.00-0.03) X10*3/uL Absolute Neuts (auto) 5.8 (2.0-8.3) x10*3/uL Absolute Nucleated RBC 0.000 (0.0-0.012) X10*3/uL Nucleated RBC % (auto) 0.0 (0.0-0.2) /100WBC Sodium 136 (135-145) mmol/L Potassium 4.2 (3.3-5.1) mmol/L Chloride 100 (96-108) mmol/L Carbon Dioxide 28 (22-29) mmol/L Anion Gap 12 (12-20) BUN 12 (9-16) mg/dL Creatinine 0.79 (0.5-1.4) mg/dL Estim Creat Clear Calc 120.6 Estimated GFR > 60 Random Glucose 274 H (60-115) mg/dL Calcium 9.0 D (8.4-10.2) mg/dL Total Bilirubin 0.5 (0.0-1.0) mg/dL AST 29 (5-31) U/L ALT 61 H (0-31) U/L Alkaline Phosphatase 100 (39-117) U/L C-Reactive Protein 0.55 H (< or = 0.50) mg/dL Total Protein 7.0 (6.5-8.0) g/dL Albumin 4.1 (3.5-5.0) g/dL Imaging Data CT scan - head: Attestation: I personally reviewed and interpreted this imaging study as follows: My impression: No acute fractures or bleed. Radiologist's impression: EXAMINATION: CT HEAD WITHOUT CONTRAST CLINICAL INFORMATION: Confusion. Headache. Left eye pain COMPARISON: CT head 10/19/2011 TECHNIQUE: Contiguous axial imaging was performed from the skull base to vertex without intravenous administration of contrast. Coronal and sagittal reformatted images are performed at the CT scanner. [This CT examination was performed using dose optimization techniques as appropriate, variously including the following: *Automated exposure control *Adjustment of mA and/or kV according to patient size (this includes techniques or standardized protocols for targeted exams where dose is matched to indication/reason for exam; i.e. extremities or head) *Use of iterative reconstruction technique] DLP: 731 mGy-cm. FINDINGS: There is no evidence of acute intracranial hemorrhage or territorial infarction. No abnormal mass-effect or midline shift is seen. Mc to white matter differentiation is well preserved. No extra-axial fluid collections are identified. The ventricles are normal in size. There is no abnormal attenuation within the brain parenchyma. There is no osseous abnormality. Mucosal thickening in AT the left maxillary sinus. Mucosal thickening in the ethmoid sinuses. Mastoid air cells and middle ear cavities are normally aerated. CT/CT head/brain wo IV con IMPRESSION: ? 1. No acute intracranial abnormality. 2. Sinus disease. ? Dictated By: Juan Troy MD Signed By: Electronically signed by Juan Troy MD 05/15/221813 Discharge Plan Discharge Clinical Impression: Sinusitis Patient Disposition: Home, Self-Care Instructions: Sinusitis (ED) Additional Instructions: Follow up with your primary care provider and an ENT specialist. Return to the emergency department immediately if your symptoms worsen or if you develop any dizziness, shortness of breath, difficulty breathing, chest pain, blurry vision, loss of vision, nausea, vomiting, abdominal pain, fever, chills, back pain, or any other complaints. Prescriptions: New doxycycline hyclate 100 mg tablet 100 mg PO BID 7 Days Qty: 14 0RF No Action oxycodone-acetaminophen [Percocet] 5-325 mg tablet 1 tab PO Q4-6H PRN (Reason: pain, severe) Qty: 10 0RF ciprofloxacin HCl 500 mg tablet 500 mg PO Q12H 7 Days Qty: 14 0RF ibuprofen 600 mg tablet 600 mg PO Q6H PRN (Reason: pain) Qty: 30 0RF metformin 500 mg tablet 500 mg PO BID docusate sodium 100 mg capsule 100 mg PO BEDTIME Qty: 90 3RF Citrucel 500 mg tablet 500 mg PO DAILY Qty: 90 2RF Rx Instructions: take it with full glass of water hydrocortisone [Proctosol HC] 2.5 % cream with perineal applicator 1 appl NE BID-QID PRN (Reason: hemorrhoids) Qty: 30 2RF Referrals: Casie Angulo DO [Primary Care Provider] - Melecio Nieto [Physician] - Print Language: Danish
[2022-05-15 18:05] LABS: MANUAL DIFF FLAG NO
[2022-05-15 18:23] LABS: Basophils Absolute Auto 0.1 X10*3/uL (0.0-0.2); Basophils Percent Auto 0.7 % (0-2); Eosinophils Absolute Auto 0.3 X10*3/uL (0.0-0.4); Eosinophils Percent Auto 3.1 % (0-4); Hematocrit 37.5 % (37.0-47.0); Hemoglobin 12.8 g/dl (12.0-16.0); Imm Gran Abs Auto 0.03 X10*3/uL (0.00-0.03); Imm Gran Pct Auto 0.3 % (0.0-0.4); Lymphocytes Absolute Auto 3.7 X10*3/uL (1.2-4.9); Mean Corpuscular HGB Conc 34.1 g/dl (31.0-35.0); Mean Corpuscular Hemoglobin 30.9 pg (27.0-33.0); Mean Corpuscular Volume 90.6 fL (80.0-98.0); Mean Platelet Volume 9.3 fL (9.4-12.3); Monocytes Absolute Auto 0.6 X10*3/uL (0.1-1.2); Monocytes Percent Auto 5.3 % (2-11); Neutrophils Absolute Auto 5.8 x10*3/uL (2.0-8.3); Neutrophils Percent Auto 55.6 % (45-73); Platelet Count 332 X10*3/uL (160-400); Red Blood Count 4.14 X10*6/uL (4.20-5.50); Red Cell Distribution Width 12.5 % (11.0-16.0); White Blood Count 10.4 X10*3/uL (4.8-10.8)
[2022-05-15 18:32] LABS: Alanine Aminotransferase 61 U/L (0-31); Albumin Level 4.1 g/dL (3.5-5.0); Alkaline Phosphatase 100 U/L (39-117); Anion Gap 12 (12-20); Aspartate Amino Transferase 29 U/L (5-31); Bilirubin Total 0.5 mg/dL (0.0-1.0); Blood Urea Nitrogen 12 mg/dL (9-16); C Reactive Protein 0.55 mg/dL (< or = 0.50); Carbon Dioxide 28 mmol/L (22-29); Chloride 100 mmol/L (96-108); Creatinine Clr Calc Pharmacy 120.6; Estimated Glomerular Filt Rate > 60; Glucose Random 274 mg/dL (60-115); Potassium 4.2 mmol/L (3.3-5.1); Sodium 136 mmol/L (135-145)
[2022-05-15 19:58] LABS: Erythrocyte Sedimentation Rate 16 MM/HR (0-20)
--- NOTE | 2022-05-15 20:05 | PC.NURSE ---
1900 PT AWAKE, ALERT AND ORIENTED X 3. SKIN WARM AND DRY. RESP UNLABORED. DENIES N/V. NO ACUTE DISTRESS NOTED. NEUROS INTACT. PLAN IS FOR DC HOME. PT AGREEABLE TO PLAN.
== END 2022-05-15 19:10 | disposition home or self-care (01) ==
PROVIDERS: Physician Assistant Medical; Emergency Provider Emergency Medicine Emergency Medical Services; PCP Family Medicine
DX: J32.0 Chronic maxillary sinusitis (principal); E11.9 Type 2 diabetes mellitus without complications; F17.210 Nicotine dependence, cigarettes, uncomplicated; Z79.84 Long term (current) use of oral hypoglycemic drugs
CPT/HCPCS: 36415; 70450; 80053; 85025; 85652; 86140; 99282; 99284

== ENCOUNTER 2022-07-31 11:05 | Outpatient (REF) | payer MEDICAID, SELFPAY ==
[2022-07-31 12:45] LABS: Appearance Urine Hazy; Color Urine Yellow; Glucose Urine UA 100 mg/dL (Negative); Leukocyte Esterase Urine Small (1+) (Negative); Nitrite Urine Negative (Negative); Specific Gravity - Urine 1.025 (1.005-1.025); UMIC TRIGGER UACC YES; Urine Blood Large (3+) (Negative); Urine Ketones Negative (Negative); Urine Protein Negative (Neg-Trace)
[2022-07-31 12:59] LABS: TSH reflex Free T4 1.09 uIU/mL (0.32-4.0)
[2022-07-31 13:03] LABS: UACC Culture Trigger YES; WBC Urine 0-5 /HPF (0-5)
[2022-07-31 13:04] LABS: Bacteria Urine 1+ (None Seen); Hyaline Casts Urine 0-2 /LPF (0-2)
[2022-07-31 13:12] LABS: Folate 13.9 ng/mL (> or = 4.0); Vitamin B12 729 pg/mL (200-900)
[2022-08-01 20:03] LABS: Transglutaminase Ab IgG <1.0 U/mL; Transglutaminase IgA <1.0 U/mL
== END 2022-07-31 11:06 | disposition home or self-care (01) ==
LOC: HO.LAB 11:05
PROVIDERS: PCP Family Medicine; Visit Provider Nurse Practitioner Family
DX: R10.9 Unspecified abdominal pain (principal); R19.7 Diarrhea, unspecified; K59.00 Constipation, unspecified; R10.2 Pelvic and perineal pain
CPT/HCPCS: 36415; 81001; 82607; 82746; 84443; 86364; 87086; 87147

== ENCOUNTER → 2022-08-14 11:21 | Outpatient (BNVA) | payer MEDICAID, SELFPAY | PROVIDERS: PCP Family Medicine; Visit Provider Nurse Practitioner Family | DX: K59.00 Constipation, unspecified (principal); M54.50 Low back pain, unspecified | CPT/HCPCS: 99212 ==

== ENCOUNTER 2022-08-15 10:11 | Emergency (ER) | payer MEDICAID, SELFPAY ==
--- NOTE | ~2022-08-15 | CT_ITS ---
EXAMINATION: CT ABDOMEN AND PELVIS WITHOUT CONTRAST CLINICAL INFORMATION: Bilateral flank pain. COMPARISON: 03/29/2022 TECHNIQUE: Multidetector volumetric imaging was performed from the superior aspect of the liver through the pubic symphysis. Sagittal and coronal reformatted images were obtained on the technologist's workstation. This CT examination was performed using dose optimization techniques as appropriate, variously including the following: *Automated exposure control *Adjustment of mA and/or kV according to patient size (this includes techniques or standardized protocols for targeted exams where dose is matched to indication/reason for exam; i.e. extremities or head) *Use of iterative reconstruction technique DLP: 806 mGy-cm FINDINGS: LUNG BASES: The visualized lung bases are unremarkable. LIVER, GALLBLADDER, AND BILIARY TREE: The liver is normal in size, shape, and attenuation. No focal hepatic lesion or biliary ductal dilatation is present. The gallbladder is unremarkable with no evidence of radiopaque gallstones, gallbladder wall thickening, or obvious pericholecystic inflammatory changes. PANCREAS: Unremarkable. SPLEEN: Unremarkable. ADRENAL GLANDS: Unremarkable. KIDNEYS AND URETERS: The kidneys are normal in size, shape, and attenuation. No hydronephrosis, hydroureter, or calculi seen. No perinephric stranding. BLADDER: Unremarkable. GASTROINTESTINAL TRACT: The stomach is unremarkable. Normal caliber small bowel. No obstruction. No colonic wall thickening or acute inflammation. No free air or free fluid. The appendix is not visualized. No inflammation in the region of the cecum to suggest appendicitis. ABDOMINAL WALL: No significant hernia is appreciated. LYMPH NODES: Normal. VASCULAR: Normal caliber aorta. Mild upper scrota calcification noted. PELVIC VISCERA: The uterus and adnexa are unremarkable. OSSEOUS STRUCTURES: Unremarkable. CT/CT abdomen pelvis wo IV con IMPRESSION: No acute findings in the abdomen or pelvis. No hydronephrosis or nephrolithiasis. Fleischner guidelines were followed.
[2022-08-15 10:36] VITALS: BP 126/83; PULSE 84; RESP 16; TEMP 36.8; O2SAT 96; BMI 34.9
--- NOTE | 2022-08-15 10:50 | ED_ITS ---
HPI - General Adult General Chief complaint: General Medical Stated complaint: lower back pain, kidneys hurt, nauseous Time Seen by Provider: 08/15/22 10:49 Source: patient Mode of arrival: ambulatory Limitations: no limitations History of Present Illness HPI narrative: 37-year-old female the past medical history of DM 2, obesity, status post hemorrhoidectomy, and COVID-19 diagnosis on 07/31/2022 presents to the emergency department complaints of bilateral lower back and flank pain, chills, nausea x3 weeks, and burning with urination. Patient was seen at her gastroenterology office yesterday, 08/14/22 for complaints of similar lower back pain when eating, using the bathroom, with bloating and difficulty moving her bowels. 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 Blood work and CT abdomen pelvis recommended by slab conditioner supervisor. At this time patient is describes pain as in mid lumbar region and bilateral flanks. She denies hematuria, fever, chills, or diarrhea. She denies any urinary incontinence or hesitancy, fecal incontinence, numbness, tingling, weakness in extremities, and denies saddle anesthesia. Onset (ago): day(s) (3) Location: back Radiation: flank Severity: moderate Quality: burning and aching Pain Consistency: constant Relieving factors: none Exacerbating factors: none Associated symptoms: denies other symptoms Treatments prior to arrival: none Related Data Home Medications Medication Instructions Recorded Confirmed metformin 500 mg tablet 500 mg PO BID 08/08/21 08/08/21 Previous Rx's Medication Instructions Recorded ibuprofen 600 mg tablet 600 mg PO Q6H PRN pain #30 tabs 01/11/22 oxycodone-acetaminophen 5 mg-325 1 tab PO Q4-6H PRN pain, severe 01/29/22 mg tablet (Percocet) #10 tabs ciprofloxacin HCl 500 mg tablet 500 mg PO Q12H 7 days #14 tabs 03/29/22 docusate sodium 100 mg capsule 100 mg PO BEDTIME #90 caps 05/14/22 hydrocortisone 2.5 % topical cream 1 appl TN BID-QID PRN hemorrhoids 05/14/22 with perineal applicator #30 grams (Proctosol HC) methylcellulose (laxative) 500 mg 500 mg PO DAILY #90 tabs 09/20/22 tablet (Citrucel) doxycycline hyclate 100 mg tablet 100 mg PO BID 7 days #14 tabs 05/15/22 linaclotide 145 mcg capsule 145 mcg PO DAILY #90 caps 08/14/22 (Linzess) cyclobenzaprine 5 mg tablet 5 mg PO TID PRN muscle spasm #14 08/15/22 tabs lidocaine 4 % topical patch 1 patch topical TID PRN pain #10 ea 08/15/22 naproxen 500 mg tablet 500 mg PO BID PRN pain #30 tabs 08/15/22 Allergies Allergy/AdvReac Type Severity Reaction Status Date / Time No Known Allergies Allergy Mild NOT Verified 08/14/22 11:44 APPLICABLE Review of Systems Review of Systems: In addition to documented HPI above, the additional ROS was obtained: Constitutional: No Weight loss, No Fever, No Chills ENT/Mouth: No Ear Pain, No Nasal Congestion, No Sinus Pain, No Hoarseness, No sore throat, No Rhinorrhea, No Swallowing Difficulty Cardiovascular: No Chest Pain, No SOB Respiratory: No Cough, No Sputum, No Wheezing Gastrointestinal: No Vomiting, No Diarrhea, No Constipation Genitourinary: No Urinary Frequency, No Urinary Incontinence/retention Musculoskeletal: No joint pain, No Myalgias, No Joint Swelling Skin: No Skin Lesions, No rash Neuro: No Weakness, No Numbness, No Paresthesias Yes all other systems are reviewed and are negative [facility] Past Medical History Attestation statement: The following information was validated with the patient. Source: old records reviewed Medical History Constipation Hemorrhoids with complication Pelvic varices Surgical History History of hemorrhoidectomy Family History Family History Maternal Aunt Breast cancer in female Mother HTN (hypertension) Social History Social History Alcohol intake: never Patient Tobacco Use Status: Current everyday Tobacco user Tobacco use type: Cigarette Cigarettes Per Day: 10 Years Smoked: 16 Advance Directives: No Physical Exam ED Vital Signs: Vital Signs - 24 hr 08/15/22 10:36 Temperature 98.3 F Pulse Rate 84 Respiratory Rate 16 Blood Pressure 126/83 Pulse Oximetry 96 Oxygen Delivery Method Room Air BMI result Body Mass Index 34.9 Const General: cooperative, alert and awake Nutritional Appearance: well nourished Orientation/consciousness: patient oriented x3 Limitations: no limitations HENMT Head: Yes normal to inspection, Yes normocephalic and Yes atraumatic Ears: hearing grossly normal bilaterally and external ears normal General nose exam: Normal external nose present and Normal nares present Face and sinus: Yes normal facial exam and Yes face symmetric Mouth: Normal oral and palatal mucosa present Eyes General: appearance normal, both eyes and all related structures Visual Rasmussen: normal visual rasmussen by confrontation Alignment and Position: alignment normal Periorbital: periorbital findings normal Eyelids: Yes eyelids normal Conjunctivae: conjunctivae normal Sclerae: sclerae normal Corneas: corneas normal Pupils: Equal, round and reactive pupils present EOM: EOMs intact bilaterally Neck Neck: Yes normal visual inspection, Yes full ROM and Yes no lymphadenopathy Chest Chest palpation & inspection: normal inspection of the chest Resp Effort & Inspection: normal respiratory effort, no cough and not labored Auscultation: clear to auscultation bilaterally, no crackles, no rhonchi and no wheezes Cardio Rate: regular rate Rhythm: regular rhythm GI Inspection: Yes normal to inspection Palpation (GI): Soft to palpation and nontender Auscultation: normal bowel sounds General: Yes CVA tenderness Back/Spine/Pelvis Back: CVA tenderness, No erythema, No warmth, No ecchymosis and back tenderness Cervical Spine: cervical ROM normal Thoracic/Lumbar Spine: thoraco-lumbar ROM normal Skin General skin exam: no rashes or lesions noted Neuro General: patient oriented x3, tone normal and moves all extremities Cranial nerves: Yes Equal, round and reactive pupils present Cognition (Neuro): normal cognition Gait exam (Neuro): Normal gait present Motor exam (neuro): 5/5 motor strength present throughout Psych Appearance: grossly normal Mental Status: mental status grossly normal Speech and movement: Normal speech and movement present Affect: normal affect Attitude: cooperative Thought process: Normal thought process present Thought content: Normal thought content present Medical Decision Making Medical Decision Making MDM Narrative: 37-year-old female the past medical history of DM 2, obesity, and COVID-19 diagnosis on 07/31/2022 presents to the emergency department complaints of bilateral lower back and flank pain, chills, nausea x3 weeks, and burning with urination. Blood work and urinalysis unremarkable. CT abdomen pelvis with no acute findings in the abdomen or pelvis, no hydronephrosis or nephrolithiasis. Physical exam with no step-offs or red flag symptoms.? Low back pain consistent with acute muscle strain.? Low suspicion of cauda equina, epidural abscess, lumbar stenosis. Pt is safe for discharge with the symptom management.? Prescriptions written for Flexeril, naproxen, and lidocaine topical patches.? HPI, physical exam, plan discussed with patient and family with no answer questions at this time.? Educated to return to the emergency department with new numbness, tingling, weakness, falls, fever, chills, or any other concerning symptoms.? Recommended follow-up with her primary care provider for further treatment and management. Lab Data MDM Lab Attestation statement: I reviewed the patient's lab results. Result Diagrams: 08/15/22 10:47 08/15/22 10:47 Labs: Lab Results 08/15/22 08/15/22 08/15/22 Range/Units 10:47 10:47 10:47 WBC 8.5 (4.8-10.8) X10*3/uL RBC 4.64 (4.20-5.50) X10*6/uL Hgb 14.2 (12.0-16.0) g/dl Hct 42.4 (37.0-47.0) % MCV 91.4 (80.0-98.0) fL MCH 30.6 (27.0-33.0) pg MCHC 33.5 (31.0-35.0) g/dl RDW 12.3 (11.0-16.0) % Plt Count 359 (160-400) X10*3/uL MPV 9.1 L (9.4-12.3) fL Immature Gran % (Auto) 0.4 (0.0-0.4) % Neut % (Auto) 66.2 (45-73) % Lymph % (Auto) 24.9 (20-40) % [place] % (Auto) 6.5 (2-11) % Eos % (Auto) 1.5 (0-4) % Baso % (Auto) 0.5 (0-2) % Lymph # (Auto) 2.1 (1.2-4.9) X10*3/uL [place] # (Auto) 0.6 (0.1-1.2) X10*3/uL Eos # (Auto) 0.1 (0.0-0.4) X10*3/uL Baso # (Auto) 0.0 (0.0-0.2) X10*3/uL Abs Immat Gran (auto) 0.03 (0.00-0.03) X10*3/uL Absolute Neuts (auto) 5.6 (2.0-8.3) x10*3/uL Absolute Nucleated RBC 0.000 (0.0-0.012) X10*3/uL Nucleated RBC % (auto) 0.0 (0.0-0.2) /100WBC Sodium 138 (135-145) mmol/L Potassium 4.2 (3.3-5.1) mmol/L Chloride 104 (96-108) mmol/L Carbon Dioxide 25 (22-29) mmol/L Anion Gap 13 (12-20) BUN 10 (9-16) mg/dL Creatinine 0.71 (0.5-1.4) mg/dL Estim Creat Clear Calc 134.4 Estimated GFR > 60 Random Glucose 156 H (60-115) mg/dL Calcium 9.6 D (8.4-10.2) mg/dL Urine Color Yellow Urine Appearance Clear Urine pH 5.5 (5.0-9.0) Ur Specific [place] 1.010 (1.005-1.025) Urine Protein Negative (Neg-Trace) mg/dL Urine Glucose (UA) Negative (Negative) mg/dL Urine Ketones Negative (Negative) mg/dL Urine Blood Negative (Negative) Urine Nitrite Negative (Negative) Ur Leukocyte Esterase Trace H (Negative) Urine RBC 0-2 (0-2) /HPF Urine WBC 0-5 (0-5) /HPF Ur Squamous Epith Cells 6-10 (0-2) /HPF Urine Bacteria Trace (None Seen) Hyaline Casts 0-2 (0-2) /LPF Urine Test (NEGATIVE) 08/15/22 Range/Units 10:47 WBC (4.8-10.8) X10*3/uL RBC (4.20-5.50) X10*6/uL Hgb (12.0-16.0) g/dl Hct (37.0-47.0) % MCV (80.0-98.0) fL MCH (27.0-33.0) pg MCHC (31.0-35.0) g/dl RDW (11.0-16.0) % Plt Count (160-400) X10*3/uL MPV (9.4-12.3) fL Immature Gran % (Auto) (0.0-0.4) % Neut % (Auto) (45-73) % Lymph % (Auto) (20-40) % [place] % (Auto) (2-11) % Eos % (Auto) (0-4) % Baso % (Auto) (0-2) % Lymph # (Auto) (1.2-4.9) X10*3/uL [place] # (Auto) (0.1-1.2) X10*3/uL Eos # (Auto) (0.0-0.4) X10*3/uL Baso # (Auto) (0.0-0.2) X10*3/uL Abs Immat Gran (auto) (0.00-0.03) X10*3/uL Absolute Neuts (auto) (2.0-8.3) x10*3/uL Absolute Nucleated RBC (0.0-0.012) X10*3/uL Nucleated RBC % (auto) (0.0-0.2) /100WBC Sodium (135-145) mmol/L Potassium (3.3-5.1) mmol/L Chloride (96-108) mmol/L Carbon Dioxide (22-29) mmol/L Anion Gap (12-20) BUN (9-16) mg/dL Creatinine (0.5-1.4) mg/dL Estim Creat Clear Calc Estimated GFR Random Glucose (60-115) mg/dL Calcium (8.4-10.2) mg/dL Urine Color Urine Appearance Urine pH (5.0-9.0) Ur Specific [place] (1.005-1.025) Urine Protein (Neg-Trace) mg/dL Urine Glucose (UA) (Negative) mg/dL Urine Ketones (Negative) mg/dL Urine Blood (Negative) Urine Nitrite (Negative) Ur Leukocyte Esterase (Negative) Urine RBC (0-2) /HPF Urine WBC (0-5) /HPF Ur Squamous Epith Cells (0-2) /HPF Urine Bacteria (None Seen) Hyaline Casts (0-2) /LPF Urine Test NEGATIVE (NEGATIVE) Radiology Impression Discussion of test interpretation with radiology: I have reviewed the radiologist's reading. Radiologist Impression: EXAMINATION: CT ABDOMEN AND PELVIS WITHOUT CONTRAST? CLINICAL INFORMATION: Bilateral flank pain.? COMPARISON: 03/29/2022? TECHNIQUE: Multidetector volumetric imaging was performed from the superior aspect of the liver through the pubic symphysis. Sagittal and coronal reformatted images were obtained on the technologist's workstation.? This CT examination was performed using dose optimization techniques as appropriate, variously including the following: *Automated exposure control *Adjustment of mA and/or kV according to patient size (this includes techniques or standardized protocols for targeted exams where dose is matched to indication/reason for exam; i.e. extremities or head) *Use of iterative reconstruction technique DLP: 806 mGy-cm FINDINGS: LUNG BASES: The visualized lung bases are unremarkable.? LIVER, GALLBLADDER, AND BILIARY TREE: The liver is normal in size, shape, and attenuation. No focal hepatic lesion or biliary ductal dilatation is present. The gallbladder is unremarkable with no evidence of radiopaque gallstones, gallbladder wall thickening, or obvious pericholecystic inflammatory changes.? PANCREAS: Unremarkable.? SPLEEN: Unremarkable.? ADRENAL GLANDS: Unremarkable.? KIDNEYS AND URETERS: The kidneys are normal in size, shape, and attenuation. No hydronephrosis, hydroureter, or calculi seen. No perinephric stranding. ? BLADDER: Unremarkable.? GASTROINTESTINAL TRACT: The stomach is unremarkable. Normal caliber small bowel. No obstruction. No colonic wall thickening or acute inflammation. No free air or free fluid. The appendix is not visualized. No inflammation in the region of the cecum to suggest appendicitis. ABDOMINAL WALL: No significant hernia is appreciated.? LYMPH NODES: Normal. VASCULAR: Normal caliber aorta. Mild upper scrota calcification noted. PELVIC VISCERA: The uterus and adnexa are unremarkable.? OSSEOUS STRUCTURES: Unremarkable.? CT/CT abdomen pelvis wo IV con IMPRESSION: No acute findings in the abdomen or pelvis. No hydronephrosis or nephrolithiasis. ? Fleischner guidelines were followed. Dictated By: Denver Zelaya MD Signed By: <Electronically signed by Denver Zelaya MD in [place]> 08/15/22 1227 DD/ 1144 TD/TT:? Restaurant Crew Member: DAVID Discharge Plan Discharge Clinical Impression: Back pain Patient Disposition: Home, Self-Care Instructions: Acute Low Back Pain (ED) Additional Instructions: Your CT abdomen/pelvis is negative for any acute findings, no hydronephrosis, or nephrolithiasis. No hernia. Kidneys are normal in size shape and no stones seen. Stomach is unremarkable. Uterus is unremarkable. Your blood work is unremarkable also. Three prescription have been sent to your preferred pharmacy for management of your low back pain. Please return to the emergency department with new numbness, tingling, weakness, falls, fever, chills, or any other concerning symptoms.? Recommended follow-up with her primary care provider for further treatment and management. DO NOT TAKE NAPROXEN WITH IBUPROFEN. Prescriptions: New lidocaine 4 % adhesive patch,medicated 1 patch topical TID PRN (Reason: pain) Qty: 10 0RF naproxen 500 mg tablet 500 mg PO BID PRN (Reason: pain) Qty: 30 0RF cyclobenzaprine 5 mg tablet 5 mg PO TID PRN (Reason: muscle spasm) Qty: 14 0RF No Action oxycodone-acetaminophen [Percocet] 5-325 mg tablet 1 tab PO Q4-6H PRN (Reason: pain, severe) Qty: 10 0RF ciprofloxacin HCl 500 mg tablet 500 mg PO Q12H 7 Days Qty: 14 0RF ibuprofen 600 mg tablet 600 mg PO Q6H PRN (Reason: pain) Qty: 30 0RF doxycycline hyclate 100 mg tablet 100 mg PO BID 7 Days Qty: 14 0RF metformin 500 mg tablet 500 mg PO BID docusate sodium 100 mg capsule 100 mg PO BEDTIME Qty: 90 3RF Citrucel 500 mg tablet 500 mg PO DAILY Qty: 90 2RF Rx Instructions: take it with full glass of water hydrocortisone [Proctosol HC] 2.5 % cream with perineal applicator 1 appl TN BID-QID PRN (Reason: hemorrhoids) Qty: 30 2RF Linzess 145 mcg capsule 145 mcg PO DAILY Qty: 90 3RF Referrals: [facility] [Provider Group] Casie Angulo DO [Primary Care Provider] - Stand Alone Forms: Work/School Release Print Language: Thai
[2022-08-15 11:01] LABS: MANUAL DIFF FLAG NO
[2022-08-15 11:02] LABS: Basophils Percent Auto 0.5 % (0-2); Eosinophils Absolute Auto 0.1 X10*3/uL (0.0-0.4); Eosinophils Percent Auto 1.5 % (0-4); Hematocrit 42.4 % (37.0-47.0); Hemoglobin 14.2 g/dl (12.0-16.0); Imm Gran Abs Auto 0.03 X10*3/uL (0.00-0.03); Imm Gran Pct Auto 0.4 % (0.0-0.4); Lymphocytes Absolute Auto 2.1 X10*3/uL (1.2-4.9); Lymphocytes Percent Auto 24.9 % (20-40); Mean Corpuscular HGB Conc 33.5 g/dl (31.0-35.0); Mean Corpuscular Hemoglobin 30.6 pg (27.0-33.0); Mean Corpuscular Volume 91.4 fL (80.0-98.0); Mean Platelet Volume 9.1 fL (9.4-12.3); Monocytes Absolute Auto 0.6 X10*3/uL (0.1-1.2); Monocytes Percent Auto 6.5 % (2-11); Neutrophils Absolute Auto 5.6 x10*3/uL (2.0-8.3); Neutrophils Percent Auto 66.2 % (45-73); Platelet Count 359 X10*3/uL (160-400); Red Blood Count 4.64 X10*6/uL (4.20-5.50); Red Cell Distribution Width 12.3 % (11.0-16.0); White Blood Count 8.5 X10*3/uL (4.8-10.8)
[2022-08-15 11:07] LABS: Appearance Urine Clear; Color Urine Yellow; Glucose Urine UA Negative (Negative); Leukocyte Esterase Urine Trace (Negative); Nitrite Urine Negative (Negative); PH 5.5 (5.0-9.0); UMIC TRIGGER UACC YES; Urine Blood Negative (Negative); Urine Ketones Negative (Negative); Urine Protein Negative (Neg-Trace)
[2022-08-15 11:12] LABS: Bacteria Urine Trace (None Seen); Hyaline Casts Urine 0-2 /LPF (0-2); RBC Urine 0-2 /HPF (0-2); WBC Urine 0-5 /HPF (0-5)
[2022-08-15 11:33] LABS: UPreg QC Valid YES; Urine Pregnancy NEGATIVE (NEGATIVE)
[2022-08-15 11:38] LABS: Anion Gap 13 (12-20); Blood Urea Nitrogen 10 mg/dL (9-16); Calcium 9.6 mg/dL (8.4-10.2); Carbon Dioxide 25 mmol/L (22-29); Chloride 104 mmol/L (96-108); Creatinine Clr Calc Pharmacy 134.4; Estimated Glomerular Filt Rate > 60; Glucose Random 156 mg/dL (60-115); Potassium 4.2 mmol/L (3.3-5.1); Sodium 138 mmol/L (135-145)
[2022-08-15 13:43] VITALS: BP 160/85; PULSE 92; RESP 16; O2SAT 98
== END 2022-08-15 13:45 | disposition home or self-care (01) ==
PROVIDERS: Emergency Provider Emergency Medicine Emergency Medical Services; PCP Family Medicine
DX: M54.50 Low back pain, unspecified (principal); R10.9 Unspecified abdominal pain; E11.9 Type 2 diabetes mellitus without complications; Z79.84 Long term (current) use of oral hypoglycemic drugs
CPT/HCPCS: 36415; 74176; 80048; 81001; 81003; 81025; 85025; 99283; 99284

== ENCOUNTER 2022-08-23 08:55 | Outpatient (REF) | payer MEDICAID, SELFPAY ==
--- NOTE | ~2022-08-23 | CT_ITS ---
EXAMINATION: CT ABDOMEN AND PELVIS WITH CONTRAST CLINICAL INFORMATION: Unspecified abdominal pain. COMPARISON: CT abdomen and pelvis 8 days ago on 08/15/[address] scan dating back to 03/17/2020. TECHNIQUE: Multidetector volumetric images were obtained from the superior aspect of the liver through the pubic symphysis following administration 85 mL of Omnipaque 350 intravenous contrast. Sagittal and coronal reformatted images were obtained on the technologist's workstation. Oral contrast: No This CT examination was performed using dose optimization techniques as appropriate, variously including the following: *Automated exposure control *Adjustment of mA and/or kV according to patient size (this includes techniques or standardized protocols for targeted exams where dose is matched to indication/reason for exam; i.e. extremities or head) *Use of iterative reconstruction technique DLP: 924 mGy-cm FINDINGS: LUNG BASES: The visualized lung bases are unremarkable. LIVER, GALLBLADDER, AND BILIARY TREE: The liver is normal in size, shape, and attenuation. No focal hepatic lesion or biliary ductal dilatation is present. The gallbladder is unremarkable with no evidence of radiopaque gallstones, gallbladder wall thickening, or obvious pericholecystic inflammatory changes. PANCREAS: Unremarkable. SPLEEN: Unremarkable. ADRENAL GLANDS: Unremarkable. KIDNEYS AND URETERS: The kidneys are normal in size, shape, and attenuation. No hydronephrosis, hydroureter, or calculi are seen. No perinephric stranding. BLADDER: Unremarkable. GASTROINTESTINAL TRACT: The stomach is unremarkable. Normal caliber small bowel. No obstruction. No colonic wall thickening or acute inflammation. No free air or free fluid. The appendix is not visualized. No inflammation in the region of the cecum to suggest appendicitis. ABDOMINAL WALL: No significant hernia is appreciated. LYMPH NODES: Normal. VASCULAR: The abdominal aorta is unremarkable aside from some infrarenal calcification. No aneurysms are seen. There is dilatation of the left ovarian vein which demonstrates reflux with associated pelvic varices, left greater than right. PELVIC VISCERA: The uterus and adnexa are unremarkable. There are pelvic varices, left greater than right. Please see discussion above. OSSEOUS STRUCTURES: Unremarkable. CT/CT abdomen pelvis w IV con IMPRESSION: 1. No acute abnormality within the abdomen or pelvis. 2. 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 This can be seen in the setting of pelvic congestion syndrome where a patient would experience pelvic pain aggravated with a prolonged upright position or sitting and relieved with the supine position. If the patient has such symptoms, she would benefit with consultation with an interventional radiologist.
[2022-08-23] MEDS: Barium Sulfate Oral (Vanilla) 450 ML ORAL.SUSP 900 ML PO (11:42)
[2022-08-23] MEDS: iohexoL 350 MG/ML 100 ML INFUS..BTL IV (11:43)
== END 2022-08-23 08:56 | disposition home or self-care (01) ==
LOC: HO.CT 08:55
PROVIDERS: PCP Family Medicine; Visit Provider Nurse Practitioner Family
DX: R10.12 Left upper quadrant pain (principal)
CPT/HCPCS: 74177; Q9967

== ENCOUNTER → 2022-09-18 11:49 | Outpatient (BNVA) | payer MEDICAID, SELFPAY | PROVIDERS: PCP Family Medicine; Visit Provider Nurse Practitioner Family | DX: K59.00 Constipation, unspecified (principal); K58.1 Irritable bowel syndrome with constipation; I86.2 Pelvic varices | CPT/HCPCS: 99212 ==

== ENCOUNTER 2022-10-12 08:30 | Emergency (ER) | payer MEDICAID, SELFPAY ==
--- NOTE | ~2022-10-12 | CT_ITS ---
EXAMINATION: CT ANGIOGRAM NECK WITH CONTRAST CT ANGIOGRAM BRAIN WITH CONTRAST CLINICAL INFORMATION: Left-sided numbness. COMPARISON: Head CT 05/15/2022. TECHNIQUE: Test bolus sequences followed by intravenous administration 70 mL of Omnipaque 350. Helical imaging was performed in the axial plane from the thoracic inlet to the skull vertex. Delayed postcontrast imaging of the head was also performed. The data was processed at the surgical scrub technologist workstation for generation of MIP sequences. Angled MIPs and volume rendered reformatted images were also generated at an offline 3D workstation under concurrent supervision. Stenoses are assessed in accordance with NASCET criteria unless otherwise indicated. This CT examination was performed using dose optimization techniques as appropriate, variously including the following: *Automated exposure control *Adjustment of mA and/or kV according to patient size (this includes techniques or standardized protocols for targeted exams where dose is matched to indication/reason for exam; i.e. extremities or head) *Use of iterative reconstruction technique FINDINGS: BRAIN: [There is no intracranial hemorrhage, hydrocephalus, extra-axial surface collection, midline shift, or other herniation pattern. Mc to white matter differentiation is diffusely maintained without evidence of an evolved acute territorial infarct. The basilar cisterns are preserved. No significant soft tissue abnormality. No acute osseous abnormality. There is a retention cyst within the left maxillary sinus. Periapical lucency surrounding the roots of the left first maxillary molar with overlying dehiscence of the left maxillary sinus floor predisposing to odontogenic sinusitis. CERVICAL SOFT TISSUES AND LUNG APICES: [Unremarkable. ] NECK CTA: Left common carotid artery arises from the brachiocephalic artery, an anatomic variant. Proximal arch vessels are non-stenotic. The vertebral arteries are codominant. No significant ostial stenosis is visualized on either side. Both vertebral arteries are widely patent throughout their extracranial cervical course. Both common carotid arteries are normal in course and caliber.] Retropharyngeal course of the right cervical internal carotid artery. BRAIN CTA: [There is normal opacification of major intracranial arteries. No focal flow-limiting stenosis nor discrete proximal large artery occlusion. No aneurysm. Timing of the contrast bolus allows assessment of the major dural venous sinuses, which all opacify normally] CT/CT angio head neck IMPRESSION: - No acute intracranial findings. - No acute arterial occlusions and no significant arterial stenoses within the head or neck. - There is a retention cyst within the left maxillary sinus. Periapical lucency surrounding the roots of the left first maxillary molar with overlying dehiscence of the left maxillary sinus floor predisposing to odontogenic sinusitis.
--- NOTE | ~2022-10-12 | XR_ITS ---
EXAMINATION: XR CHEST CLINICAL INFORMATION: Chest pain. COMPARISON: 05/27/2012. TECHNIQUE: Frontal view of the chest was obtained. FINDINGS: No significant abnormality is noted involving the heart, lungs, mediastinum, bony thorax or soft tissues. XR/XR chest 1V IMPRESSION: Unremarkable examination.
[2022-10-12 08:40] VITALS: BP 146/90; PULSE 86; RESP 16; TEMP 36.9; O2SAT 97; BMI 36.0
--- NOTE | 2022-10-12 08:43 | ECG_ITS ---
Test Reason : LIGHTHEADED Blood Pressure : / mmHG Vent. Rate : 078 BPM Atrial Rate : 078 BPM P-R Int : 168 ms QRS Dur : 096 ms QT Int : 366 ms P-R-T Axes : 017 014 024 degrees QTc Int : 417 ms Normal sinus rhythm Normal ECG No previous ECGs available Referred By: Killian [place] Electronically Signed By:Chung [place]
--- NOTE | 2022-10-12 08:44 | ED.GENADULT ---
HPI - General Adult General Chief complaint: Dizziness Stated complaint: lightheaded nausea l side numbness Time Seen by Provider: 10/12/22 08:36 Source: patient Mode of arrival: ambulatory Limitations: no limitations History of Present Illness HPI narrative: THIS IS A 37 YEARS OLD OF FEMALE PRESENTED TO THE EMERGENCY DEPARTMENT WITH CHIEF COMPLAINT OF LIGHTHEADEDNESS, NAUSEA, LEFT ARM PAIN LEFT ARM NUMBNESS. DID DENIES ANY CHEST PAIN SHORTNESS OF BREATH FEVER CHILLS VOMITING Onset (ago): hour(s) (4) Location: head and upper extremity (LEFT ARM) Radiation: non-radiation Severity: mild Quality: burning Pain Consistency: constant Relieving factors: none Exacerbating factors: none Related Data Home Medications Medication Instructions Recorded Confirmed metformin 500 mg tablet 500 mg PO BID 08/08/21 08/08/21 Previous Rx's Medication Instructions Recorded ibuprofen 600 mg tablet 600 mg PO Q6H PRN pain #30 tabs 01/11/22 oxycodone-acetaminophen 5 mg-325 1 tab PO Q4-6H PRN pain, severe 01/29/22 mg tablet (Percocet) #10 tabs ciprofloxacin HCl 500 mg tablet 500 mg PO Q12H 7 days #14 tabs 03/29/22 docusate sodium 100 mg capsule 100 mg PO BEDTIME #90 caps 05/14/22 hydrocortisone 2.5 % topical cream 1 appl MO BID-QID PRN hemorrhoids 05/14/22 with perineal applicator #30 grams (Proctosol HC) methylcellulose (laxative) 500 mg 500 mg PO DAILY #90 tabs 05/14/22 tablet (Citrucel) doxycycline hyclate 100 mg tablet 100 mg PO BID 7 days #14 tabs 05/15/22 cyclobenzaprine 5 mg tablet 5 mg PO TID PRN muscle spasm #14 08/15/22 tabs lidocaine 4 % topical patch 1 patch topical TID PRN pain #10 ea 08/15/22 naproxen 500 mg tablet 500 mg PO BID PRN pain #30 tabs 08/15/22 linaclotide 290 mcg capsule 290 mcg PO QAM #30 caps 09/18/22 (Linzess) Allergies Allergy/AdvReac Type Severity Reaction Status Date / Time No Known Allergies Allergy Mild NOT Verified 09/18/22 11:59 APPLICABLE Review of Systems Review of Systems: Yes all other systems are reviewed and are negative ENT: Reports system reviewed and no additional complaints, except as documented Cardiovascular: Cardiovascular: Reports no additional cardiovascular complaints Respiratory: Respiratory: Reports no additional respiratory complaints Musculoskeletal: Musculoskeletal: Reports no additional musculoskeletal complaints PMF Past Medical History Medical History Constipation Hemorrhoids with complication Pelvic varices Surgical History History of hemorrhoidectomy Family History Family History Maternal Aunt Breast cancer in female Mother HTN (hypertension) Social History Social History Alcohol intake: current Alcohol intake frequency: holidays/special occasions only Patient Tobacco Use Status: Current everyday Tobacco user Tobacco use type: Cigarette Cigarettes Per Day: 10 Years Smoked: 16 Smoked in Last 30 Days: Yes Use of substances other than those prescribed or required for medical reasons: No Advance Directives: No Advance Directives Information Provided: No Physical Exam ED Vital Signs: Vital Signs - 24 hr 10/12/22 08:40 10/12/22 12:11 Temperature 98.5 F Pulse Rate 86 69 Respiratory Rate 16 14 Blood Pressure 146/90 H 101/67 Pulse Oximetry 97 98 Oxygen Delivery Method Room Air Room Air BMI result Body Mass Index 36.0 SHE LOOKS WELL SHE HAS NO TOXIC-APPEARING SHE IS NOT IN DISTRESS Const General: cooperative, comfortable, no acute distress, well developed and alert Nutritional Appearance: well nourished Orientation/consciousness: patient oriented x3 Limitations: no limitations [facility] Head: Yes normal to inspection Ears: hearing grossly normal bilaterally General nose exam: Normal nares present Face and sinus: Yes normal facial exam Mouth: Normal oral and palatal mucosa present Neck Neck: Yes normal visual inspection and Yes full ROM Chest Chest palpation & inspection: normal inspection of the chest Resp Effort & Inspection: normal respiratory effort Auscultation: clear to auscultation bilaterally Cardio Jugular venous distension: no JVD Rate: regular rate Rhythm: regular rhythm GI Inspection: Yes normal to inspection Palpation (GI): Soft to palpation, not firm, nontender and no guarding Skin General skin exam: no rashes or lesions noted and elasticity normal Rashes: no rashes Neuro General: patient oriented x3 Cranial nerves: Yes CN's II-XII intact bilaterally Cognition (Neuro): normal cognition Motor exam (neuro): 5/5 motor strength present throughout Course Reevaluation(s) Reevaluation #1: She is feeling much better now,numbness gone.Vital stable cta head and neck ok will d/c home Time: 12:35 Medications Administered Discontinued Medications Generic Name Dose Route Start Last Admin Trade Name Freq PRN Reason Stop Dose Admin Iohexol 100 ml 10/12/22 10:45 10/12/22 10:45 Iohexol 350 Mg/Ml 100 Ml Infus..Btl IV 10/12/22 10:46 70 ml ONCE ONE Administration Ketorolac Tromethamine 30 mg 10/12/22 11:53 10/12/22 12:10 Ketorolac Tromethamine 30 Mg/Ml Vial IVPUSH 10/12/22 11:54 30 mg ONCE ONE Administration Medical Decision Making Medical Decision Making [facility] Narrative: PRESSURE PRESENTED WITH A TENDERNESS NAUSEA LEFT-SIDED NUMBNESS IN THE ARM WILL GO AHEAD AND DO LABS /EKG /HEAD AND REASSESS 12:35 w/u completed labs OK/CTA head and neck OK/EKG normal will d/c home Differential Diagnosis Differential Diagnoses: The differential diagnosis associated with the presentation includes CERVICAL BRACHIALGIA/ANXIETY/ACS/TIA Admission/Observation Consideration of admission/observation: Escalation of care including admission/observation considered Lab Data [facility] Lab Attestation statement: I reviewed the patient's lab results. 10/12/22 08:57 10/12/22 08:57 Labs: Lab Results 10/12/22 10/12/22 10/12/22 Range/Units 08:57 08:57 08:57 WBC 8.0 (4.8-10.8) X10*3/uL RBC 4.49 (4.20-5.50) X10*6/uL Hgb 13.8 (12.0-16.0) g/dl Hct 40.6 (37.0-47.0) % MCV 90.4 (80.0-98.0) fL MCH 30.7 (27.0-33.0) pg MCHC 34.0 (31.0-35.0) g/dl RDW 12.4 (11.0-16.0) % Plt Count 353 (160-400) X10*3/uL MPV 8.9 L (9.4-12.3) fL Immature Gran % (Auto) 0.2 (0.0-0.4) % Neut % (Auto) 69.5 (45-73) % Lymph % (Auto) 22.2 (20-40) % [place] % (Auto) 5.9 (2-11) % Eos % (Auto) 1.6 (0-4) % Baso % (Auto) 0.6 (0-2) % Lymph # (Auto) 1.8 (1.2-4.9) X10*3/uL [place] # (Auto) 0.5 (0.1-1.2) X10*3/uL Eos # (Auto) 0.1 (0.0-0.4) X10*3/uL Baso # (Auto) 0.1 (0.0-0.2) X10*3/uL Abs Immat Gran (auto) 0.02 (0.00-0.03) X10*3/uL Absolute Neuts (auto) 5.6 (2.0-8.3) x10*3/uL Absolute Nucleated RBC 0.000 (0.0-0.012) X10*3/uL Nucleated RBC % (auto) 0.0 (0.0-0.2) /100WBC Sodium 137 (135-145) mmol/L Potassium 4.6 (3.3-5.1) mmol/L Chloride 103 (96-108) mmol/L Carbon Dioxide 24 (22-29) mmol/L Anion Gap 15 (12-20) BUN 9 (9-16) mg/dL Creatinine 0.76 (0.5-1.4) mg/dL Estim Creat Clear Calc 123.4 Estimated GFR > 60 Random Glucose 305 H (60-115) mg/dL Calcium 9.3 (8.4-10.2) mg/dL Total Bilirubin 0.5 (0.0-1.0) mg/dL AST 22 (5-31) U/L ALT 41 H (0-31) U/L Alkaline Phosphatase 99 (39-117) U/L Troponin I High Sens < 3.5 (<3.5-17.0) ng/L Total Protein 7.4 (6.5-8.0) g/dL Albumin 4.3 (3.5-5.0) g/dL Beta HCG, Quant < 2 mIU/mL Urine Color Urine Appearance Urine pH (5.0-9.0) Ur Specific [place] (1.005-1.025) Urine Protein (Neg-Trace) mg/dL Urine Glucose (UA) (Negative) mg/dL Urine Ketones (Negative) mg/dL Urine Blood (Negative) Urine Nitrite (Negative) Ur Leukocyte Esterase (Negative) Urine RBC (0-2) /HPF Urine WBC (0-5) /HPF Ur Squamous Epith Cells (0-2) /HPF Urine Bacteria (None Seen) Hyaline Casts (0-2) /LPF Urine Test (NEGATIVE) Urine Opiates Screen (Not Detect) Urine Fentanyl Screen (Not Detect) Ur Barbiturates Screen (Not Detect) Ur Phencyclidine Scrn (Not Detect) Ur Amphetamines Screen (Not Detect) U Benzodiazepines Scrn (Not Detect) Urine Cocaine Screen (Not Detect) U Marijuana (THC) Screen (Not Detect) 10/12/22 10/12/22 10/12/22 Range/Units 10:55 10:55 10:55 WBC (4.8-10.8) X10*3/uL RBC (4.20-5.50) X10*6/uL Hgb (12.0-16.0) g/dl Hct (37.0-47.0) % MCV (80.0-98.0) fL MCH (27.0-33.0) pg MCHC (31.0-35.0) g/dl RDW (11.0-16.0) % Plt Count (160-400) X10*3/uL MPV (9.4-12.3) fL Immature Gran % (Auto) (0.0-0.4) % Neut % (Auto) (45-73) % Lymph % (Auto) (20-40) % [place] % (Auto) (2-11) % Eos % (Auto) (0-4) % Baso % (Auto) (0-2) % Lymph # (Auto) (1.2-4.9) X10*3/uL [place] # (Auto) (0.1-1.2) X10*3/uL Eos # (Auto) (0.0-0.4) X10*3/uL Baso # (Auto) (0.0-0.2) X10*3/uL Abs Immat Gran (auto) (0.00-0.03) X10*3/uL Absolute Neuts (auto) (2.0-8.3) x10*3/uL Absolute Nucleated RBC (0.0-0.012) X10*3/uL Nucleated RBC % (auto) (0.0-0.2) /100WBC Sodium (135-145) mmol/L Potassium (3.3-5.1) mmol/L Chloride (96-108) mmol/L Carbon Dioxide (22-29) mmol/L Anion Gap (12-20) BUN (9-16) mg/dL Creatinine (0.5-1.4) mg/dL Estim Creat Clear Calc Estimated GFR Random Glucose (60-115) mg/dL Calcium (8.4-10.2) mg/dL Total Bilirubin (0.0-1.0) mg/dL AST (5-31) U/L ALT (0-31) U/L Alkaline Phosphatase (39-117) U/L Troponin I High Sens (<3.5-17.0) ng/L Total Protein (6.5-8.0) g/dL Albumin (3.5-5.0) g/dL Beta HCG, Quant mIU/mL Urine Color Yellow Urine Appearance Clear Urine pH 8.0 (5.0-9.0) Ur Specific [place] >= 1.030 H (1.005-1.025) Urine Protein Negative (Neg-Trace) mg/dL Urine Glucose (UA) 100 H (Negative) mg/dL Urine Ketones Negative (Negative) mg/dL Urine Blood Negative (Negative) Urine Nitrite Negative (Negative) Ur Leukocyte Esterase Negative (Negative) Urine RBC 0-2 (0-2) /HPF Urine WBC 0-5 (0-5) /HPF Ur Squamous Epith Cells 3-5 (0-2) /HPF Urine Bacteria None Seen (None Seen) Hyaline Casts 0-2 (0-2) /LPF Urine Test NEGATIVE (NEGATIVE) Urine Opiates Screen Not Detected (Not Detect) Urine Fentanyl Screen Not Detected (Not Detect) Ur Barbiturates Screen Not Detected (Not Detect) Ur Phencyclidine Scrn Not Detected (Not Detect) Ur Amphetamines Screen Not Detected (Not Detect) U Benzodiazepines Scrn Not Detected (Not Detect) Urine Cocaine Screen Not Detected (Not Detect) U Marijuana (THC) Screen Not Detected (Not Detect) Independent Interpretation I performed an independent interpretation of an: EKG (Normal sinus rhythm rate [address]-T changes) and Plain X-Ray Interpretation: normal EKG / normal CXR Discharge Plan Discharge Clinical Impression: Paresthesia of arm Patient Disposition: Home, Self-Care Instructions: Paresthesia (ED) Additional Instructions: Follow-up with your primary care physician on Friday return to the emergency room if you worse any concern Prescriptions: No Action oxycodone-acetaminophen [Percocet] 5-325 mg tablet 1 tab PO Q4-6H PRN (Reason: pain, severe) Qty: 10 0RF ciprofloxacin HCl 500 mg tablet 500 mg PO Q12H 7 Days Qty: 14 0RF ibuprofen 600 mg tablet 600 mg PO Q6H PRN (Reason: pain) Qty: 30 0RF doxycycline hyclate 100 mg tablet 100 mg PO BID 7 Days Qty: 14 0RF lidocaine 4 % adhesive patch,medicated 1 patch topical TID PRN (Reason: pain) Qty: 10 0RF naproxen 500 mg tablet 500 mg PO BID PRN (Reason: pain) Qty: 30 0RF cyclobenzaprine 5 mg tablet 5 mg PO TID PRN (Reason: muscle spasm) Qty: 14 0RF metformin 500 mg tablet 500 mg PO BID docusate sodium 100 mg capsule 100 mg PO BEDTIME Qty: 90 3RF Citrucel 500 mg tablet 500 mg PO DAILY Qty: 90 2RF Rx Instructions: take it with full glass of water hydrocortisone [Proctosol HC] 2.5 % cream with perineal applicator 1 appl MO BID-QID PRN (Reason: hemorrhoids) Qty: 30 2RF Linzess 290 mcg capsule 290 mcg PO QAM Qty: 30 4RF Referrals: Casie Angulo DO [Primary Care Provider] - 10/15/22 Stand Alone Forms: Work/School Release Interventions: ED Discharge Assessment Last Done: 10/12/22 12:51 Discharge Date/Time: 10/12/22 12:51
[2022-10-12 09:00] LABS: MANUAL DIFF FLAG NO
[2022-10-12 09:02] LABS: Basophils Absolute Auto 0.1 X10*3/uL (0.0-0.2); Basophils Percent Auto 0.6 % (0-2); Eosinophils Absolute Auto 0.1 X10*3/uL (0.0-0.4); Eosinophils Percent Auto 1.6 % (0-4); Hematocrit 40.6 % (37.0-47.0); Hemoglobin 13.8 g/dl (12.0-16.0); Imm Gran Abs Auto 0.02 X10*3/uL (0.00-0.03); Imm Gran Pct Auto 0.2 % (0.0-0.4); Lymphocytes Absolute Auto 1.8 X10*3/uL (1.2-4.9); Lymphocytes Percent Auto 22.2 % (20-40); Mean Corpuscular Hemoglobin 30.7 pg (27.0-33.0); Mean Corpuscular Volume 90.4 fL (80.0-98.0); Mean Platelet Volume 8.9 fL (9.4-12.3); Monocytes Absolute Auto 0.5 X10*3/uL (0.1-1.2); Monocytes Percent Auto 5.9 % (2-11); Neutrophils Absolute Auto 5.6 x10*3/uL (2.0-8.3); Neutrophils Percent Auto 69.5 % (45-73); Platelet Count 353 X10*3/uL (160-400); Red Blood Count 4.49 X10*6/uL (4.20-5.50); Red Cell Distribution Width 12.4 % (11.0-16.0)
[2022-10-12 09:27] LABS: Alanine Aminotransferase 41 U/L (0-31); Albumin Level 4.3 g/dL (3.5-5.0); Alkaline Phosphatase 99 U/L (39-117); Anion Gap 15 (12-20); Aspartate Amino Transferase 22 U/L (5-31); Bilirubin Total 0.5 mg/dL (0.0-1.0); Blood Urea Nitrogen 9 mg/dL (9-16); Calcium 9.3 mg/dL (8.4-10.2); Carbon Dioxide 24 mmol/L (22-29); Chloride 103 mmol/L (96-108); Creatinine Clr Calc Pharmacy 123.4; Estimated Glomerular Filt Rate > 60; Glucose Random 305 mg/dL (60-115); Potassium 4.6 mmol/L (3.3-5.1); Sodium 137 mmol/L (135-145); Total Protein 7.4 g/dL (6.5-8.0)
[2022-10-12 09:29] LABS: Troponin-I High Sensitivity < 3.5 ng/L (<3.5-17.0)
[2022-10-12] MEDS: iohexoL 350 MG/ML 100 ML INFUS..BTL IV (10:45)
[2022-10-12 11:12] LABS: Appearance Urine Clear; Color Urine Yellow; Glucose Urine UA 100 mg/dL (Negative); Leukocyte Esterase Urine Negative (Negative); Nitrite Urine Negative (Negative); Specific Gravity - Urine >= 1.030 (1.005-1.025); Urine Blood Negative (Negative); Urine Ketones Negative (Negative); Urine Protein Negative (Neg-Trace)
[2022-10-12 11:15] LABS: Bacteria Urine None Seen (None Seen); Hyaline Casts Urine 0-2 /LPF (0-2); RBC Urine 0-2 /HPF (0-2); WBC Urine 0-5 /HPF (0-5)
[2022-10-12 11:20] LABS: HCG Quantitative < 2 mIU/mL
[2022-10-12 11:21] LABS: UPreg QC Valid YES; Urine Pregnancy NEGATIVE (NEGATIVE)
[2022-10-12 11:28] LABS: Amphetamine Screen Urine Not Detected (Not Detect); Barbiturates, Urine Not Detected (Not Detect); Benzodiazepines Screen Urine Not Detected (Not Detect); Cannabinoid Screen Urine Not Detected (Not Detect); Cocaine Screen Urine Not Detected (Not Detect); Fentanyl, urine Not Detected (Not Detect); Opiate Screen Urine Not Detected (Not Detect); Phencyclidine Screen Urine Not Detected (Not Detect)
[2022-10-12] MEDS: Ketorolac Tromethamine 30 MG/ML VIAL IVPUSH (12:10)
[2022-10-12 12:11] VITALS: BP 101/67; PULSE 69; RESP 14; O2SAT 98
== END 2022-10-12 12:51 | disposition home or self-care (01) ==
PROVIDERS: Emergency Provider Emergency Medicine; PCP Family Medicine
DX: R20.2 Paresthesia of skin (principal); R42 Dizziness and giddiness; E11.9 Type 2 diabetes mellitus without complications; F17.210 Nicotine dependence, cigarettes, uncomplicated; E66.9 Obesity, unspecified; Z68.36 Body mass index [BMI] 36.0-36.9, adult; Z79.84 Long term (current) use of oral hypoglycemic drugs; Z79.899 Other long term (current) drug therapy
CPT/HCPCS: 36415; 70496; 70498; 71045; 80053; 80307; 81001; 81025; 84484; 84702; 85025; 93005; 96374; 99284; 99285; J1885; Q9967

== ENCOUNTER → 2022-11-27 10:25 | Outpatient (BNVA) | payer MEDICAID, SELFPAY | PROVIDERS: PCP Family Medicine; Visit Provider Surgery | DX: K59.04 Chronic idiopathic constipation (principal); K62.89 Other specified diseases of anus and rectum | CPT/HCPCS: 46600; 99212 ==

== ENCOUNTER → 2022-12-17 15:27 | Outpatient (BNVA) | payer MEDICAID, SELFPAY | PROVIDERS: PCP Family Medicine; Visit Provider Nurse Practitioner Family | DX: K62.89 Other specified diseases of anus and rectum (principal); K59.04 Chronic idiopathic constipation; K58.2 Mixed irritable bowel syndrome; K21.9 Gastro-esophageal reflux disease without esophagitis | CPT/HCPCS: 99212 ==

== ENCOUNTER 2023-03-02 16:06 | Emergency (ER) | payer MEDICAID, SELFPAY ==
[2023-03-02 17:10] VITALS: BP 103/66; PULSE 79; RESP 18; TEMP 36.6; O2SAT 96; BMI 35.2
--- NOTE | 2023-03-02 17:23 | ED.GENADULT ---
HPI - General Adult General Chief complaint: General Medical Stated complaint: Chest pain/dizziness/feeling weak Time Seen by Provider: 03/02/23 19:36 Source: patient Mode of arrival: ambulatory Limitations: no limitations History of Present Illness HPI narrative: Patient complain of headache for last 1 week complaining of left-sided chest pain next to midsternal since early today which increased on palpation and movement no shortness of breath no cough no fever no chills Related Data Home Medications Medication Instructions Recorded Confirmed metformin 500 mg tablet 500 mg PO BID 08/08/21 08/08/21 Previous Rx's Medication Instructions Recorded ibuprofen 600 mg tablet 600 mg PO Q6H PRN pain #30 tabs 01/11/22 methylcellulose (laxative) 500 mg 500 mg PO DAILY #90 tabs 05/14/22 tablet (Citrucel) linaclotide 290 mcg capsule 290 mcg PO QAM #30 caps 09/18/22 (Linzess) docusate sodium 100 mg capsule 200 mg PO BEDTIME #180 caps 12/04/22 sennosides 8.6 mg tablet (Natural 17.2 mg PO BEDTIME constipation 12/04/22 Senna Laxative) #180 tabs hydrocortisone 2.5 % topical cream 1 appl LA BID-QID PRN hemorrhoids 12/17/22 with perineal applicator #30 grams (Proctosol HC) [id number] 1 cap PO Q6H PRN headache #20 caps 03/02/23 50 mg-300 mg-40 mg capsule (Fioricet) ibuprofen 600 mg tablet 600 mg PO Q6H PRN fever or pain 03/02/23 #30 tabs Allergies Allergy/AdvReac Type Severity Reaction Status Date / Time No Known Allergies Allergy Mild NOT Verified 03/02/23 17:13 APPLICABLE Review of Systems Review of Systems: Yes all other systems are reviewed and are negative [facility] Past Medical History Medical History Anal pain Constipation Hemorrhoids with complication Pelvic varices Surgical History History of hemorrhoidectomy Family History Family History Maternal Aunt Breast cancer in female Mother HTN (hypertension) Social History Social History Alcohol intake: current Alcohol intake frequency: holidays/special occasions only Patient Tobacco Use Status: Current everyday Tobacco user Tobacco use type: Cigarette Cigarettes Per Day: 10 Years Smoked: 16 Physical Exam ED Vital Signs: Vital Signs - 24 hr 03/02/23 17:10 03/02/23 20:14 Temperature 97.8 F 97.9 F Pulse Rate 79 66 Respiratory Rate 18 16 Blood Pressure 103/66 101/70 Pulse Oximetry 96 97 Oxygen Delivery Method Room Air Room Air BMI result Body Mass Index 35.2 Appearance: Alert. Oriented X3. No acute distress. Eyes: PERRLA, No Nystagmus ENT: Pharynx normal. Oral Mucosa moist Neck: Normal inspection. Neck supple. CVS: Normal heart rate and rhythm. Pulses normal. Tenderness left 2nd intercostal space Respiratory: No respiratory distress. Equal air entry bilateral, no wheezing/rales/rhonchi Abdomen: Soft and nontender. Bowel sounds are present, Skin: Skin warm and dry. Normal skin color. Normal skin turgor. Extremities: No lower extremity edema. No calf tenderness Neuro: Oriented X 3. No motor deficit. No sensory deficit.No cerebellar signs , cranial nerves II-XII intact Course Course Course Narrative: rme: 37 YOLD FEMALE PRESENTS TO THE ed FOR CHEST PAIN WEAKNESS FOR WEEKS. LABS ORDERED AND ekg Medications Administered Discontinued Medications Generic Name Dose Route Start Last Admin Trade Name Freq PRN Reason Stop Dose Admin Acetaminophen/Butalbital/Caffeine 1 tab 03/02/23 20:05 03/02/23 20:11 Butalb/Acetamin/Caff 50/325/40 Tablet PO 03/02/23 20:06 1 tab ONCE ONE Administration Ibuprofen 600 mg 03/02/23 20:05 03/02/23 20:11 Ibuprofen 600 Mg Tablet PO 03/02/23 20:06 600 mg ONCE ONE Administration Medical Decision Making Medical Decision Making MDM Narrative: Patient with heart score of 0 atypical chest pain EKG normal discharge patient home on ibuprofen Lab Data [facility] Lab Attestation statement: I reviewed the patient's lab results. 03/02/23 18:50 03/02/23 18:50 Labs: Lab Results 07/09/23 07/09/23 07/09/23 Range/Units 18:50 18:50 18:50 WBC 9.1 (4.8-10.8) X10*3/uL RBC 3.99 L (4.20-5.50) X10*6/uL Hgb 12.3 (12.0-16.0) g/dl Hct 36.6 L (37.0-47.0) % MCV 91.7 (80.0-98.0) fL MCH 30.8 (27.0-33.0) pg MCHC 33.6 (31.0-35.0) g/dl RDW 12.9 (11.0-16.0) % Plt Count 325 (160-400) X10*3/uL MPV 9.0 L (9.4-12.3) fL Immature Gran % (Auto) 0.2 (0.0-0.4) % Neut % (Auto) 52.2 (45-73) % Lymph % (Auto) 38.0 (20-40) % [place] % (Auto) 6.9 (2-11) % Eos % (Auto) 2.0 (0-4) % Baso % (Auto) 0.7 (0-2) % Lymph # (Auto) 3.5 (1.2-4.9) X10*3/uL [place] # (Auto) 0.6 (0.1-1.2) X10*3/uL Eos # (Auto) 0.2 (0.0-0.4) X10*3/uL Baso # (Auto) 0.1 (0.0-0.2) X10*3/uL Abs Immat Gran (auto) 0.02 (0.00-0.03) X10*3/uL Absolute Neuts (auto) 4.8 (2.0-8.3) x10*3/uL Absolute Nucleated RBC 0.000 (0.0-0.012) X10*3/uL Nucleated RBC % (auto) 0.0 (0.0-0.2) /100WBC PT (10.0-13.1) SEC INR (0.9-1.1) APTT (26.0-36.4) SEC Sodium 139 (135-145) mmol/L Potassium 3.8 (3.3-5.1) mmol/L Chloride 106 (96-108) mmol/L Carbon Dioxide 27 (22-29) mmol/L Anion Gap 10 L (12-20) BUN 14 (9-16) mg/dL Creatinine 0.64 (0.5-1.4) mg/dL Estim Creat Clear Calc 144.8 Estimated GFR > 60 Random Glucose 98 (60-115) mg/dL Calcium 9.5 (8.4-10.2) mg/dL Total Bilirubin 0.4 (0.0-1.0) mg/dL AST 19 (5-31) U/L ALT 29 (0-31) U/L Alkaline Phosphatase 77 (39-117) U/L Troponin I High Sens < 2.7 (<3.5-17.0) ng/L Total Protein 7.0 (6.5-8.0) g/dL Albumin 4.0 (3.5-5.0) g/dL Beta HCG, Quant mIU/mL 03/02/23 03/02/23 Range/Units 18:50 18:50 WBC (4.8-10.8) X10*3/uL RBC (4.20-5.50) X10*6/uL Hgb (12.0-16.0) g/dl Hct (37.0-47.0) % MCV (80.0-98.0) fL MCH (27.0-33.0) pg MCHC (31.0-35.0) g/dl RDW (11.0-16.0) % Plt Count (160-400) X10*3/uL MPV (9.4-12.3) fL Immature Gran % (Auto) (0.0-0.4) % Neut % (Auto) (45-73) % Lymph % (Auto) (20-40) % [place] % (Auto) (2-11) % Eos % (Auto) (0-4) % Baso % (Auto) (0-2) % Lymph # (Auto) (1.2-4.9) X10*3/uL [place] # (Auto) (0.1-1.2) X10*3/uL Eos # (Auto) (0.0-0.4) X10*3/uL Baso # (Auto) (0.0-0.2) X10*3/uL Abs Immat Gran (auto) (0.00-0.03) X10*3/uL Absolute Neuts (auto) (2.0-8.3) x10*3/uL Absolute Nucleated RBC (0.0-0.012) X10*3/uL Nucleated RBC % (auto) (0.0-0.2) /100WBC PT 10.5 (10.0-13.1) SEC INR 0.9 (0.9-1.1) APTT 30.8 (26.0-36.4) SEC Sodium (135-145) mmol/L Potassium (3.3-5.1) mmol/L Chloride (96-108) mmol/L Carbon Dioxide (22-29) mmol/L Anion Gap (12-20) BUN (9-16) mg/dL Creatinine (0.5-1.4) mg/dL Estim Creat Clear Calc Estimated GFR Random Glucose (60-115) mg/dL Calcium (8.4-10.2) mg/dL Total Bilirubin (0.0-1.0) mg/dL AST (5-31) U/L ALT (0-31) U/L Alkaline Phosphatase (39-117) U/L Troponin I High Sens (<3.5-17.0) ng/L Total Protein (6.5-8.0) g/dL Albumin (3.5-5.0) g/dL Beta HCG, Quant < 2 mIU/mL Independent Interpretation I performed an independent interpretation of an: EKG Interpretation: No sinus rhythm heart rate 80 beats per minute normal interval normal axis no acute ST-T changes no acute ischemia Discharge Plan Discharge Clinical Impression: Chest wall pain Patient Disposition: Home, Self-Care Instructions: Chest Wall Pain (ED) Additional Instructions: Take pain medication as prescribed pain is likely musculoskeletal Take Fioricet for headache Prescriptions: New ibuprofen 600 mg tablet 600 mg PO Q6H PRN (Reason: fever or pain) Qty: 30 0RF ttsduwlbyj-hchwtzzzpnwsa-abcz [Fioricet] 50-300-40 mg capsule 1 cap PO Q6H PRN (Reason: headache) Qty: 20 0RF No Action docusate sodium 100 mg capsule 200 mg PO BEDTIME Qty: 180 3RF sennosides [Natural Senna Laxative] 8.6 mg tablet 17.2 mg PO BEDTIME Qty: 180 3RF ibuprofen 600 mg tablet 600 mg PO Q6H PRN (Reason: pain) Qty: 30 0RF metformin 500 mg tablet 500 mg PO BID Citrucel 500 mg tablet 500 mg PO DAILY Qty: 90 2RF Rx Instructions: take it with full glass of water hydrocortisone [Proctosol HC] 2.5 % cream with perineal applicator 1 appl LA BID-QID PRN (Reason: hemorrhoids) Qty: 30 2RF Linzess 290 mcg capsule 290 mcg PO QAM Qty: 30 4RF Interventions: ED Discharge Assessment Last Done: 03/02/23 21:57 Discharge Date/Time: 03/02/23 21:57
[2023-03-02 20:14] VITALS: BP 101/70; PULSE 66; RESP 16; TEMP 36.6; O2SAT 97
== END 2023-03-02 21:57 | disposition home or self-care (01) ==
PROVIDERS: Emergency Provider Internal Medicine
DX: R07.89 Other chest pain (principal); R42 Dizziness and giddiness; R53.1 Weakness; Z79.899 Other long term (current) drug therapy; F17.210 Nicotine dependence, cigarettes, uncomplicated; Z71.6 Tobacco abuse counseling
CPT/HCPCS: 36415; 80053; 84484; 84702; 85025; 85610; 85730; 93005; 99284; 99285

== ENCOUNTER → 2023-03-02 16:40 | Outpatient (BNV) | payer MEDICAID, SELFPAY | PROVIDERS: Emergency Provider Internal Medicine; Visit Provider Internal Medicine Cardiovascular Disease | DX: R07.9 Chest pain, unspecified (principal) | CPT/HCPCS: 93010 ==

== ENCOUNTER 2023-04-08 16:05 | Outpatient (AMB) | payer MEDICAID, SELFPAY ==
--- NOTE | 2023-04-08 16:09 | A.OFFVIS_ITS ---
Intake Vital Signs 04/08/23 16:12 Height 5 ft 7 in Weight 222 lb 10.67 oz BMI 34.9 BP 108/71 Blood Pressure Location Lt brachial Position Sitting Pulse 91 Intake Visit Reasons: 4 mos f/u c/o constipation Intake Note: Casie presents in the office as a 4 months follow up constipation. CC: She states that she is having issues with her bowel movements - she is having hard stools and she is in a lot of pain. Denies any blood with her BMs Allergies No Known Allergies Allergy (Mild, Verified 04/08/23 16:14) NOT APPLICABLE HPI 4 mos f/u c/o constipation HPI Details LAST VISIT: Anal pain Patient reports that she seen a surgeon in the beginning of the month and was told that she does not require to go for surgery. Patient had hemorrhoidectomy over a year ago. Patient is not using any cream right now. Discussed with patient the importance of making sure that her bowels are soft and then she moves them normally. Discussed with patient that diarrhea also can cause some irritation. Constipation Patient was encouraged to take Linzess every day. Patient did not want a take Linzess because she was not sure if she will make it in time to work. Discussed with patient timing how she takes the medication versus not taking it at all. IBS (irritable bowel syndrome) Patient has abdominal bloating postprandially with occasional loose stools and then constipation. Patient was encouraged to take Linzess every day. Patient was asked to come down on taking some of their fiber as that could also be irritating and causing cramping. Low FODMAP diet discussed with patient. List of food recommended as well as list of food to avoid given to patient. GERD (gastroesophageal reflux disease) Patient reports occasional epigastric discomfort without dyspepsia, dysphagia or odynophagia. Discussed with patient the importance of avoiding dietary triggers and late night snacking. Staying upright for minimum 3 hours after meals discussed with patient. I will see patient in 4 months, sooner on as needed basis. Patient is agreeable to this plan and verbalizes understanding of instructions. She was given the opportunity to ask questions and all questions answered. ? Thank you for allowing me to participate in her care Plan Medications New hydrocortisone 2.5% (Proctosol HC) 1 appl NC BID-QID PRN 30 grams 2RF hemorrh oids K64.9 Discontinued doxycycline hyclate Discontinued Reason: Patient no longer taking 100 mg PO BID 7 days 14 tabs 0RF TODAY'S VISIT Patient is here today for follow-up. Patient reports that she continues to be constipated. Patient states that in the beginning she was doing well with Linzess 290 mcg daily and Colace 200 mg, however she reports that lately she has been constipated. Patient states that she has to push to have a bowel movement and is only going small amount. Her bowels are small and hard. Darker in color. However no melena or hematochezia. Patient also reports that she is taking Senokot in the evening. Patient states that she is not drinking enough water. 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 Patient reports that she has occasional abdominal cramping specially when she does not have a bowel movement for more than couple days. Patient tried milk of magnesia states that it works for cramping but does not actually help with a bowel movement. Patient denies any nausea or vomiting, denies any other GI concerning symptoms. Reports occasional acid reflux but for the most part she is avoiding food that is causing her having those symptoms. Denies dyspepsia, dysphagia or odynophagia PFSH Medical History Anal pain Constipation Hemorrhoids with complication Pelvic varices Surgical History History of hemorrhoidectomy Family History Maternal Aunt Breast cancer in female Mother HTN (hypertension) Social History Alcohol intake: current Alcohol intake frequency: holidays/special occasions only Patient Tobacco Use Status: Current everyday Tobacco user Tobacco use type: Cigarette Cigarettes Per Day: 10 Years Smoked: 16 Female Reproductive History Menstrual Age of Menarche: 10 Review of Systems Const Denies weight gain and Denies weight loss ENT Reports no additional complaints, Denies dysphagia and Denies odynophagia Card Reports no additional complaints Resp Reports no additional complaints GI Reports abdominal pain (LLQ), Denies belching, Denies melena, Reports bloating, Denies change in bowel habits, Reports constipation, Denies dysphagia, Denies excessive flatus, Denies dyspepsia, Denies heartburn, Denies diarrhea, Denies loose stools, Denies nausea, Denies odynophagia and Denies vomiting Reports no additional complaints Musc Reports no additional complaints Neuro Reports no additional complaints Psych Reports no additional complaints Endo Reports no additional complaints Physical Exam Vital Signs: Last Vital Signs Pulse 91 04/08/23 16:12 BP 108/71 04/08/23 16:12 BMI result Body Mass Index 34.9 Const General: healthy appearing, no acute distress and well developed Nutritional Appearance: obese Orientation/consciousness: patient oriented x3 HEENT Head: Yes normal to inspection, Yes normocephalic and Yes atraumatic Face and sinus: Yes normal facial exam Mouth: Normal oral and palatal mucosa present Throat: Yes posterior oropharynx normal, Yes tonsils normal and Yes uvula midline Eyes General: appearance normal, both eyes and all related structures Neck Neck: Yes normal visual inspection, Yes full ROM and Yes trachea midline Thyroid: Thyroid normal Resp Effort & Inspection: normal respiratory effort, able to speak in complete sentences, no tracheal deviation and symmetric chest movement Auscultation: clear to auscultation bilaterally Cardio Rate: regular rate Heart sounds: S1 normal heart sound present and S2 normal heart sound present GI Inspection: Yes normal to inspection, No distended and Yes obesity Palpation (GI): Soft to palpation, not firm, nontender and No hepatosplenomegaly present Auscultation: normal bowel sounds General: Yes no CVA tenderness Back/Spine/Pelvis Back: no CVA tenderness Skin General skin exam: elasticity normal, turgor normal and dry skin Neuro General: patient oriented x3 Psych Appearance: grossly normal Mental Status: mental status grossly normal Speech and movement: Normal speech and movement present Assessment & Plan Assessment & Plan (1) Constipation: Code(s): K59.00 - Constipation, unspecified Qualifiers: Constipation type: chronic idiopathic constipation Qualified Code(s): K59.04 - Chronic idiopathic constipation Plan: Long history of constipation. Patient is taking Linzess and she can continue taking that. Will stop Senokot and start her on Dulcolax. Patient will call the office in 2-3 weeks if she will continue to have constipation. Patient can take on as needed basis milk of magnesia if she does not have a bowel movement in 2 days. If patient will continue to have constipation we can change the treatment to Motegrity. Patient was also encouraged to increase fluid intake an d activity to promote better bowel motility. I will see patient in 3 months, sooner on as needed basis. Patient is agreeable to this plan and verbalizes understanding of instructions. She was given the opportunity to ask questions and all questions answered. Thank you for allowing me to participate in her care Medications: New bisacodyl (Dulcolax (bisacodyl)) 10 mg (2 x 5 mg) PO BEDTIME 180 tabs 4RF magnesium hydroxide (Milk of Magnesia) 30 mL PO DAILY PRN 355 mL 0RF constipation Discontinued sennosides (Natural Senna Laxative) Discontinued Reason: Doctor's Order 17.2 mg (2 x 8.6 mg) PO BEDTIME 180 tabs 3RF constipation K59.00 - Constipation, unspecified Coding Level of Care Code Est Pt Level 3 (54096) Diagnoses Constipation K59.04 Constipation type: chronic idiopathic constipation Time Spent (min) 25 Comment 15 minutes spent with patient and additional 10 minutes spent reviewing her records
[2023-04-08 16:12] VITALS: BP 108/71; PULSE 91; BMI 34.9
== END 2023-04-08 16:48 | disposition home or self-care (01) ==
PROVIDERS: PCP Family Medicine; Visit Provider Nurse Practitioner Family
DX: K59.04 Chronic idiopathic constipation (principal)
CPT/HCPCS: 99213

== ENCOUNTER → 2023-04-08 16:05 | Outpatient (BNVA) | payer MEDICAID, SELFPAY | PROVIDERS: PCP Family Medicine; Visit Provider Nurse Practitioner Family | DX: K59.04 Chronic idiopathic constipation (principal) | CPT/HCPCS: 99212; 99213 ==

== ENCOUNTER 2023-04-17 08:00 | Outpatient (REF) | payer MEDICAID, SELFPAY ==
--- NOTE | 2023-04-17 08:03 | EMG_ITS ---
Left median and ulnar motor and sensory studies were performed. Left radial and median and lateral antecubital sensory studies were performed and paraspinal muscles were tested with a needle. IMPRESSION: This is an unremarkable study with no evidence of entrapment neuropathy or radiculopathy. MD EMANI Parry/MARIE / [id number]
== END 2023-04-17 08:01 | disposition home or self-care (01) ==
LOC: HO.NEURO 08:00
PROVIDERS: PCP Family Medicine; Visit Provider Family Medicine
DX: R20.2 Paresthesia of skin (principal)
CPT/HCPCS: 95886; 95910

== ENCOUNTER 2023-05-03 23:36 | Emergency (ER) | payer MEDICAID, SELFPAY ==
--- NOTE | ~2023-05-03 | CT_ITS ---
EXAMINATION: CT ABDOMEN AND PELVIS WITHOUT CONTRAST CLINICAL INFORMATION: Left flank pain. COMPARISON: None available. TECHNIQUE: Multidetector volumetric imaging was performed from the superior aspect of the liver through the pubic symphysis. Sagittal and coronal reformatted images were obtained on the technologist's workstation. This CT examination was performed using dose optimization techniques as appropriate, variously including the following: *Automated exposure control *Adjustment of mA and/or kV according to patient size (this includes techniques or standardized protocols for targeted exams where dose is matched to indication/reason for exam; i.e. extremities or head) *Use of iterative reconstruction technique DLP: 695 mGy-cm FINDINGS: LUNG BASES: The visualized lung bases are unremarkable. LIVER, GALLBLADDER, AND BILIARY TREE: The liver is normal in size, shape, and attenuation. No focal hepatic lesion or biliary ductal dilatation is present. The gallbladder is unremarkable with no evidence of radiopaque gallstones, gallbladder wall thickening, or obvious pericholecystic inflammatory changes. PANCREAS: Unremarkable. SPLEEN: Unremarkable. ADRENAL GLANDS: Unremarkable. KIDNEYS AND URETERS: The kidneys are normal in size, shape, and attenuation. No hydronephrosis, hydroureter, or calculi seen. No perinephric stranding. BLADDER: Unremarkable. GASTROINTESTINAL TRACT: The small and large bowel are unremarkable. The appendix is not seen. ABDOMINAL WALL: No significant hernia is appreciated. LYMPH NODES: Normal. VASCULAR: Unremarkable. PELVIC VISCERA: Unremarkable. OSSEOUS STRUCTURES: Unremarkable. CT/CT abdomen pelvis wo IV con IMPRESSION: No significant abnormality. Fleischner guidelines were followed.
[2023-05-03 23:55] VITALS: BP 103/68; PULSE 86; RESP 17; TEMP 36.3; O2SAT 97; BMI 35.1
[2023-05-04 01:13] LABS: Appearance Urine Clear; Color Urine Yellow; Glucose Urine UA Negative (Negative); Leukocyte Esterase Urine Negative (Negative); Nitrite Urine Negative (Negative); PH 5.5 (5.0-9.0); Urine Blood Negative (Negative); Urine Ketones Negative (Negative); Urine Protein Negative (Neg-Trace)
[2023-05-04 01:20] LABS: MANUAL DIFF FLAG NO
[2023-05-04 01:22] LABS: Basophils Percent Auto 0.3 % (0-2); Eosinophils Absolute Auto 0.2 X10*3/uL (0.0-0.4); Eosinophils Percent Auto 1.5 % (0-4); Hematocrit 36.1 % (37.0-47.0); Hemoglobin 12.3 g/dl (12.0-16.0); Imm Gran Abs Auto 0.04 X10*3/uL (0.00-0.03); Imm Gran Pct Auto 0.3 % (0.0-0.4); Lymphocytes Absolute Auto 3.7 X10*3/uL (1.2-4.9); Lymphocytes Percent Auto 30.1 % (20-40); Mean Corpuscular HGB Conc 34.1 g/dl (31.0-35.0); Mean Corpuscular Hemoglobin 30.8 pg (27.0-33.0); Mean Corpuscular Volume 90.3 fL (80.0-98.0); Mean Platelet Volume 8.8 fL (9.4-12.3); Monocytes Absolute Auto 0.8 X10*3/uL (0.1-1.2); Monocytes Percent Auto 6.6 % (2-11); Neutrophils Absolute Auto 7.5 x10*3/uL (2.0-8.3); Neutrophils Percent Auto 61.2 % (45-73); Platelet Count 331 X10*3/uL (160-400); Red Cell Distribution Width 12.9 % (11.0-16.0); White Blood Count 12.3 X10*3/uL (4.8-10.8)
[2023-05-04 01:35] LABS: Alanine Aminotransferase 23 U/L (0-31); Albumin Level 4.1 g/dL (3.5-5.0); Alkaline Phosphatase 68 U/L (39-117); Anion Gap 12 (12-20); Aspartate Amino Transferase 17 U/L (5-31); Bilirubin Total 0.2 mg/dL (0.0-1.0); Blood Urea Nitrogen 16 mg/dL (9-16); Calcium 9.5 mg/dL (8.4-10.2); Carbon Dioxide 26 mmol/L (22-29); Chloride 104 mmol/L (96-108); Creatinine Clr Calc Pharmacy 118.9; Estimated Glomerular Filt Rate > 60; Glucose Random 155 mg/dL (60-115); Potassium 3.5 mmol/L (3.3-5.1); Sodium 138 mmol/L (135-145); Total Protein 7.1 g/dL (6.5-8.0)
--- NOTE | 2023-05-04 01:37 | ED_ITS ---
HPI - General Adult General Chief complaint: General Medical Stated complaint: side pain Time Seen by Provider: 05/04/23 01:11 History of Present Illness HPI narrative: Patient is a 38-year-old female presents today with having left flank pain. Positive history of diabetes. No history of abdominal surgery in the past. Complaining of pain mainly over the left flank area radiating to the left lower quadrant. Denies any fever chills. Denies any chest pain or diaphoresis. Patient is from home. Positive BM. No cough no congestion or per history symptoms. No chest pain. No focal weakness. Related Data Home Medications Medication Instructions Recorded Confirmed metformin 500 mg tablet 500 mg PO BID 08/08/21 08/08/21 dulaglutide 1.5 mg/0.5 mL mg subcut 04/08/23 subcutaneous pen injector (Trulicity) Previous Rx's Medication Instructions Recorded methylcellulose (laxative) 500 mg 500 mg PO DAILY #90 tabs 05/14/22 tablet (Citrucel) docusate sodium 100 mg capsule 200 mg (2 x 100 mg) PO BEDTIME 12/04/22 #180 caps hydrocortisone 2.5 % topical cream [address] BID-QID PRN hemorrhoids 12/17/22 with perineal applicator #30 grams (Proctosol HC) ibuprofen 600 mg tablet 600 mg PO Q6H PRN fever or pain 03/02/23 #30 tabs linaclotide 290 mcg capsule 290 mcg PO QAM #30 caps 03/19/23 (Linzess) bisacodyl 5 mg tablet,delayed 10 mg (2 x 5 mg) PO BEDTIME #180 04/08/23 release (Dulcolax (bisacodyl)) tabs magnesium hydroxide 400 mg/5 mL 30 ml PO DAILY PRN constipation 04/08/23 oral suspension (Milk of Magnesia) #355 mL Allergies Allergy/AdvReac Type Severity Reaction Status Date / Time No Known Allergies Allergy Mild NOT Verified 04/08/23 16:14 APPLICABLE Review of Systems 2 Review of Systems: Positive abdominal pain Yes all other systems are reviewed and are negative PMFSH Past Medical History Attestation statement: The following information was validated with the patient. Medical History Anal pain Constipation Hemorrhoids with complication Pelvic varices Surgical History History of hemorrhoidectomy Family History Family History Maternal Aunt Breast cancer in female Mother HTN (hypertension) Social History Social History Alcohol intake: former Patient Tobacco Use Status: Current everyday Tobacco user Tobacco use type: Cigarette Cigarettes Per Day: 10 Years Smoked: 16 Smoked in Last 30 Days: Yes Use of substances other than those prescribed or required for medical reasons: No Advance Directives: No Advance Directives Information Provided: No Physical Exam ED Vital Signs: Vital Signs - 24 hr 05/03/23 23:55 05/04/23 02:54 Temperature 97.4 F 97.8 F Pulse Rate 86 76 Respiratory Rate 17 18 Blood Pressure 103/68 113/74 Pulse Oximetry 97 95 Oxygen Delivery Method Room Air Room Air BMI result Body Mass Index 35.1 Appearance: Alert. Oriented X3. No acute distress. Eyes: Pupils equal, round and reactive to light. ENT: Pharynx normal. Neck: Normal inspection. Neck supple. No lymph nodes noted. No crepitus CVS: Normal heart rate and rhythm. Pulses normal. Normal S1 and S2 Respiratory: No respiratory distress. Breath sounds normal. No Wheezing. No rales Abdomen: Soft and nontender. No rigidity. No distention. good BS x4 Skin: Skin warm and dry. Normal skin color. Normal skin turgor. Extremities: No lower extremity edema. Neurovascular intact to all extremities. No Lacerations. No Rash Neuro: Oriented X 3. No motor deficit. No sensory deficit. Moving all extermities. No slurred speech Medications Administered Discontinued Medications Generic Name Dose Route Start Last Admin Trade Name Freq PRN Reason Stop Dose Admin Sodium Chloride 1,000 mls @ 999 mls/hr 05/04/23 01:45 05/04/23 02:43 Ns IV 05/04/23 02:45 999 mls/hr .Q1H1M LIYA Administration Ketorolac Tromethamine 30 mg 05/04/23 01:41 05/04/23 02:46 Ketorolac Tromethamine 30 Mg/Ml Vial IVPUSH 05/04/23 01:42 30 mg ONCE ONE Administration Ondansetron HCl 4 mg 05/04/23 01:41 05/04/23 02:46 Ondansetron Hcl 4 Mg/2 Ml Vial IVPUSH 05/04/23 01:42 4 mg ONCE ONE Administration Medical Decision Making Medical Decision Making [facility] Narrative: Positive left flank pain. Radiating to the left lower quadrant. Question patient has kidney stone. Will check patient's urine for infection. Will get CT scan to also rule out possibility of diverticulitis. test was sent to rule out related issues. Will give IV fluid and small dose of pain medication Patient's white count was 12. Urine showed no signs of infection. Liver enzymes are normal. Lipase is normal there is no evidence for pancreatitis. CT scan of the abdomen pelvis was done. It showed no evidence of obstruction no evidence of diverticulitis no evidence of kidney stone no evidence for abdominal aortic aneurysm. Will discharge patient home. Close follow-up on an outpatient basis. In stable condition. Lab Data [facility] Lab Attestation statement: I reviewed the patient's lab results. 05/04/23 01:17 05/04/23 01:17 Labs: Lab Results 05/04/23 05/04/23 Range/Units 00:59 01:17 WBC 12.3 H (4.8-10.8) X10*3/uL RBC 4.00 L (4.20-5.50) X10*6/uL Hgb 12.3 (12.0-16.0) g/dl Hct 36.1 L (37.0-47.0) % MCV 90.3 (80.0-98.0) fL MCH 30.8 (27.0-33.0) pg MCHC 34.1 (31.0-35.0) g/dl RDW 12.9 (11.0-16.0) % Plt Count 331 (160-400) X10*3/uL MPV 8.8 L (9.4-12.3) fL Immature Gran % (Auto) 0.3 (0.0-0.4) % Neut % (Auto) 61.2 (45-73) % Lymph % (Auto) 30.1 (20-40) % [place] % (Auto) 6.6 (2-11) % Eos % (Auto) 1.5 (0-4) % Baso % (Auto) 0.3 (0-2) % Lymph # (Auto) 3.7 (1.2-4.9) X10*3/uL [place] # (Auto) 0.8 (0.1-1.2) X10*3/uL Eos # (Auto) 0.2 (0.0-0.4) X10*3/uL Baso # (Auto) 0.0 (0.0-0.2) X10*3/uL Abs Immat Gran (auto) 0.04 H (0.00-0.03) X10*3/uL Absolute Neuts (auto) 7.5 (2.0-8.3) x10*3/uL Absolute Nucleated RBC 0.000 (0.0-0.012) X10*3/uL Nucleated RBC % (auto) 0.0 (0.0-0.2) /100WBC Sodium 138 (135-145) mmol/L Potassium 3.5 (3.3-5.1) mmol/L Chloride 104 (96-108) mmol/L Carbon Dioxide 26 (22-29) mmol/L Anion Gap 12 (12-20) BUN 16 (9-16) mg/dL Creatinine 0.77 (0.5-1.4) mg/dL Estim Creat Clear Calc 118.9 Estimated GFR > 60 Random Glucose 155 H (60-115) mg/dL Calcium 9.5 (8.4-10.2) mg/dL Total Bilirubin 0.2 (0.0-1.0) mg/dL AST 17 (5-31) U/L ALT 23 (0-31) U/L Alkaline Phosphatase 68 (39-117) U/L Total Protein 7.1 (6.5-8.0) g/dL Albumin 4.1 (3.5-5.0) g/dL Lipase 52 (8-78) U/L Urine Color Yellow Urine Appearance Clear Urine pH 5.5 (5.0-9.0) Ur Specific [place] 1.010 (1.005-1.025) Urine Protein Negative (Neg-Trace) mg/dL Urine Glucose (UA) Negative (Negative) mg/dL Urine Ketones Negative (Negative) mg/dL Urine Blood Negative (Negative) Urine Nitrite Negative (Negative) Ur Leukocyte Esterase Negative (Negative) Urine Test NEGATIVE (NEGATIVE) Independent Interpretation I performed an independent interpretation of an: CT Scan Interpretation: No obstruction no abscess no kidney stone Radiology Impression Discussion of test interpretation with radiology: I have reviewed the radiologist's reading. External Record Review External record reviewed: Office record Previous surgical and GI record reviewed patient was planning for gastric sleeve surgery Chronic Conditions Patient?s care impacted by: Diabetes Discharge Plan Discharge Clinical Impression: Abdominal pain Patient Disposition: Home, Self-Care Instructions: Abdominal Pain (ED) Prescriptions: No Action docusate sodium 100 mg capsule 200 mg PO BEDTIME Qty: 180 3RF Linzess 290 mcg capsule 290 mcg PO QAM Qty: 30 4RF ibuprofen 600 mg tablet 600 mg PO Q6H PRN (Reason: fever or pain) Qty: 30 0RF metformin 500 mg tablet 500 mg PO BID Citrucel 500 mg tablet 500 mg PO DAILY Qty: 90 2RF Rx Instructions: take it with full glass of water hydrocortisone [Proctosol HC] 2.5 % cream with perineal applicator [address] BID-QID PRN (Reason: hemorrhoids) Qty: 30 2RF Trulicity 1.5 mg/0.5 mL pen injector subcut bisacodyl [Dulcolax (bisacodyl)] 5 mg tablet,delayed release (DR/EC) 10 mg PO BEDTIME Qty: 180 4RF magnesium hydroxide [Milk of Magnesia] 400 mg/5 mL suspension 30 ml PO DAILY PRN (Reason: constipation) Qty: 355 0RF Referrals: Physician,Unknown J [Primary Care Provider] - 05/06/23
[2023-05-04 01:50] LABS: UPreg QC Valid YES; Urine Pregnancy NEGATIVE (NEGATIVE)
[2023-05-04 01:51] LABS: Lipase 52 U/L (8-78)
[2023-05-04] MEDS: 0.9 % Sodium Chloride 1,000 ML 999 ML IV (02:43)
[2023-05-04] MEDS: ondansetron HCL 4 MG/2 ML VIAL IVPUSH (02:46)
[2023-05-04] MEDS: Ketorolac Tromethamine 30 MG/ML VIAL IVPUSH (02:46)
[2023-05-04 02:54] VITALS: BP 113/74; PULSE 76; RESP 18; TEMP 36.6; O2SAT 95
--- NOTE | 2023-05-04 02:58 | PC.NURSE ---
Pt alert and oriented. Complain of left sided flank and nausea x3 days, diarrhea Al morning. Denies pain urinary complaints. [address] in left ac. Medications administered as per oct. Call within reach. Plan of care ongoing
== END 2023-05-04 04:30 | disposition home or self-care (01) ==
PROVIDERS: Emergency Provider Emergency Medicine Emergency Medical Services
DX: R10.32 Left lower quadrant pain (principal); F17.210 Nicotine dependence, cigarettes, uncomplicated; Z71.6 Tobacco abuse counseling; Z79.899 Other long term (current) drug therapy
CPT/HCPCS: 36415; 74176; 80053; 81003; 81025; 83690; 85025; 96361; 96374; 96375; 99284; J1885; J2405

== ENCOUNTER 2023-05-09 15:59 | Outpatient (AMB) | payer MEDICAID, SELFPAY ==
--- NOTE | 2023-05-09 16:04 | A.OFFVIS_ITS ---
Intake Vital Signs 05/09/23 16:06 Height 5 ft 7 in Weight 224 lb BMI 35.1 BP 105/63 Blood Pressure Location Lt brachial Position Sitting Pulse 103 H Intake Visit Reasons: f/u constipation (pt req visit) Intake Note: Patient followup for Constipation. Patient cc: constipation, LLQ pain with bloating. Denies any other GI issues. 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 Patient is taking Linzess and she can continue taking that. Will stop Senokot and start her on Dulcolax. Patient will call the office in 2-3 weeks if she will continue to have constipation. Patient can take on as needed basis milk of magnesia if she does not have a bowel movement in 2 days. If patient will continue to have constipation we can change the treatment to Motegrity. Patient was also encouraged to increase fluid intake and activity to promote better bowel motility. I will see patient in 3 months, sooner on as needed basis. Patient is agreeable to this plan and verbalizes understanding of instructions. She was given the opportunity to ask questions and all questions answered. TODAY'S VISIT: Patient is here today for requested visit. Patient was seen in the ER few days ago for abdominal pain in left lower quadrant radiating to her left flank. Patient reports that she Linzess and Dulcolax. She takes it every day. Started having nausea and abdominal pain last Friday morning and went to the ER. CT scan showed no acute processes. Patient has not changed her diet. Patient is not drinking enough fluids. Not eating vegetables or and a fiber. Patient denies melena, hematochezia, unintentional weight loss or ribbon like stools. Patient denies any dyspepsia, dysphagia or odynophagia. [facility] Medical History Anal pain Constipation Hemorrhoids with complication Pelvic varices Surgical History History of hemorrhoidectomy Family History Maternal Aunt Breast cancer in female Mother HTN (hypertension) Social History Alcohol intake: former Patient Tobacco Use Status: Current everyday Tobacco user Tobacco use type: Cigarette Cigarettes Per Day: 10 Years Smoked: 16 Female Reproductive History Menstrual Age of Menarche: 10 Review of Systems Const Denies weight gain and Denies weight loss ENT Reports no additional complaints, Denies dysphagia and Denies odynophagia Card Reports no additional complaints Resp Reports no additional complaints GI Denies abdominal pain, Denies belching, Denies melena, Denies bloating, Reports constipation, Denies dysphagia, Denies excessive flatus, Denies dyspepsia, Denies heartburn, Denies diarrhea, Denies loose stools, Denies nausea, Denies odynophagia and Denies vomiting Reports no additional complaints Musc Reports no additional complaints Neuro Reports no additional complaints Psych Reports no additional complaints Endo Reports no additional complaints Physical Exam Vital Signs: Last Vital Signs Pulse 103 H 05/09/23 16:06 BP 105/63 05/09/23 16:06 BMI result Body Mass Index 35.1 Const General: healthy appearing, no acute distress and well developed Nutritional Appearance: obese Orientation/consciousness: patient oriented x3 HEENT Head: Yes normal to inspection, Yes normocephalic and Yes atraumatic Face and sinus: Yes normal facial exam Mouth: Normal oral and palatal mucosa present Throat: Yes posterior oropharynx normal, Yes tonsils normal and Yes uvula midline Eyes General: appearance normal, both eyes and all related structures Neck Neck: Yes normal visual inspection, Yes full ROM and Yes trachea midline Thyroid: Thyroid normal Resp Effort & Inspection: normal respiratory effort, able to speak in complete sentences, no tracheal deviation and symmetric chest movement Auscultation: clear to auscultation bilaterally Cardio Rate: regular rate Heart sounds: S1 normal heart sound present and S2 normal heart sound present GI Inspection: Yes normal to inspection, No distended and Yes obesity Palpation (GI): Soft to palpation, not firm, nontender and No hepatosplenomegaly present Auscultation: normal bowel sounds General: Yes no CVA tenderness Back/Spine/Pelvis Back: no CVA tenderness Skin General skin exam: elasticity normal, turgor normal and dry skin Neuro General: patient oriented x3 Psych Appearance: grossly normal Mental Status: mental status grossly normal Results Reviewed Results Reviewed: ABDOMINAL CT SCAN 05/04/2023 FINDINGS: LUNG BASES: The visualized lung bases are unremarkable. LIVER, GALLBLADDER, AND BILIARY TREE: The liver is normal in size, shape, and attenuation. No focal hepatic lesion or biliary ductal dilatation is present. The gallbladder is unremarkable with no evidence of radiopaque gallstones, gallbladder wall thickening, or obvious pericholecystic inflammatory changes. PANCREAS: Unremarkable. SPLEEN: Unremarkable. ADRENAL GLANDS: Unremarkable. KIDNEYS AND URETERS: The kidneys are normal in size, shape, and attenuation. No hydronephrosis, hydroureter, or calculi seen. No perinephric stranding. BLADDER: Unremarkable. GASTROINTESTINAL TRACT: The small and large bowel are unremarkable. The appendix is not seen. ABDOMINAL WALL: No significant hernia is appreciated. LYMPH NODES: Normal. VASCULAR: Unremarkable. PELVIC VISCERA: Unremarkable. OSSEOUS STRUCTURES: Unremarkable. Assessment & Plan Assessment & Plan (1) Constipation: Code(s): K59.00 - Constipation, unspecified Qualifiers: Constipation type: chronic idiopathic constipation Qualified Code(s): K59.04 - Chronic idiopathic constipation Plan: Patient continues to be constipated. Will stop Linzess and start Motegrity. Patient was also encouraged to increase fluid intake. She is not drinking and off only couple 8 oz bottles a day. Patient was encouraged to drink 32-64 oz of water day. Patient can take Dulcolax in the evening. (2) Abdominal pain: Code(s): R10.9 - Unspecified abdominal pain Qualifiers: Abdominal location: left lower quadrant Qualified Code(s): R10.32 - Left lower quadrant pain Plan: Patient reports left lower quadrant pain specially when she is constipated. Patient was encouraged to increase fluid intake and activity to promote better bowel motility. CT scan on 05/04/2023 showed no acute processes. Patient will return in 4 weeks, sooner on as needed basis. Patient is agreeable to this plan and verbalizes understanding of instructions. She was given the opportunity to ask questions and all questions answered. Thank you for allowing me to participate in her care Medications: New prucalopride (Motegrity) 2 mg PO DAILY 30 tabs 2RF K59.04 - Chronic idiopathic constipation magnesium oxide 400 mg PO DAILY 30 caps 2RF K59.04 - Chronic idiopathic constipation Discontinued linaclotide (Linzess) Discontinued Reason: Doctor's Order 290 mcg PO QAM 30 caps 4RF K59.00 - Constipation, unspecified Coding Level of Care Code Est Pt Level 4 (23843) Diagnoses Chronic idiopathic constipation K59.04 Constipation type: chronic idiopathic constipation Left lower quadrant abdominal pain R10.32 Abdominal location: left lower quadrant Time Spent (min) 35 Comment 20 minutes spent with patient and additional 10 minutes spent reviewing her records
[2023-05-09 16:06] VITALS: BP 105/63; PULSE 103; BMI 35.1
== END 2023-05-09 16:30 | disposition home or self-care (01) ==
PROVIDERS: Visit Provider Nurse Practitioner Family
DX: K59.04 Chronic idiopathic constipation (principal); R10.32 Left lower quadrant pain
CPT/HCPCS: 99214

== ENCOUNTER → 2023-05-09 15:59 | Outpatient (BNVA) | payer MEDICAID, SELFPAY | PROVIDERS: Visit Provider Nurse Practitioner Family | DX: K59.04 Chronic idiopathic constipation (principal); R10.32 Left lower quadrant pain | CPT/HCPCS: 99212 ==

== ENCOUNTER 2023-06-03 11:01 | Outpatient (REF) | payer MEDICAID, SELFPAY | END 2023-06-03 11:02 | disposition home or self-care (01) | LOC: HO.HHCL 11:01 | PROVIDERS: Visit Provider Nurse Practitioner Primary Care | DX: Z11.52 Encounter for screening for COVID-19 (principal); Z20.822 Contact with and (suspected) exposure to COVID-19; J06.9 Acute upper respiratory infection, unspecified; R53.81 Other malaise; E11.69 Type 2 diabetes mellitus with other specified complication; E78.5 Hyperlipidemia, unspecified; R10.84 Generalized abdominal pain | CPT/HCPCS: 0241U; 36415; 80061; 81001; 83036; 84443; 87086 ==

== ENCOUNTER 2023-08-27 08:08 | Outpatient (AMB) | payer MEDICAID, SELFPAY ==
--- NOTE | 2023-08-27 08:19 | MHC.OFFVIS ---
Intake Vital Signs 08/27/23 08:21 Height 5 ft 7 in Weight 222 lb 10.67 oz BMI 34.9 BP 116/69 Blood Pressure Location Lt brachial Position Sitting Pulse 101 H Intake Visit Reasons: Abdominal Pain, Nausea, Constipation OK per Lana Intake Note: Casie presents in the office as a follow up for abdominal pains, nausea and constipation. CC: She states that she has been having issues with her stomach for 3 weeks now. Nausea and she feels like her gut is full and bloated and the pains in her LRQ and LUQ. She states that she is having constipation even though she is taking all her medications. No blood when she has a BM. She has been trying to eat more fruits to try and not feel so bloated but nothing seems to be helping. She feels this way without eating anything. Allergies No Known Allergies Allergy (Mild, Verified 08/27/23 08:21) NOT APPLICABLE HPI Abdominal Pain, Nausea, Constipation OK per Lana HPI Details LAST VISIT: Constipation Patient continues to be constipated. Will stop Linzess and start Motegrity. Patient was also encouraged to increase fluid intake. She is not drinking and off only couple 8 oz bottles a day. Patient was encouraged to drink 32-64 oz of water day. Patient can take Dulcolax in the evening. Abdominal pain Patient reports left lower quadrant pain specially when she is constipated. Patient was encouraged to increase fluid intake and activity to promote better bowel motility. CT scan on 05/04/2023 showed no acute processes. Patient will return in 4 weeks, sooner on as needed basis. Patient is agreeable to this plan and verbalizes understanding of instructions. She was given the opportunity to ask questions and all questions answered. ? Thank you for allowing me to participate in her care Plan Medications New prucalopride (Motegrity) 2 mg PO DAILY 30 tabs 2RF K59.04 magnesium oxide 400 mg PO DAILY 30 caps 2RF K59.04 Discontinued linaclotide (Linzess) Discontinued Reason: Doctor's Order 290 mcg PO QAM 30 caps 4RF K59.00 TODAY'S VISIT Patient is here today for requested visit. Patient reports that in the last few weeks she has been suffering from increased constipation. Patient reports that she is trying to eat more fruits and vegetables drinks plenty fluids and seems like she is feeling worse. Patient continues to be taking Linzess. Has not picked up [facility], she states that she was not aware that we change the medication last visit. Patient reports that she is not taking the magnesium. Patient states that she is taking Dulcolax 2 tablets every evening on top of the Linzess and she continues to have left lower quadrant pain and no bowel movements. Patient states that she has not gone for 3 or 4 days now. When she goes she goes very small amounts. Patient denies any nausea or vomiting. Denies any melena, hematochezia unintentional weight loss or ribbon like stools. Patient denies any dyspepsia, dysphagia or odynophagia. Patient denies any fever or chills [facility] Medical History Anal pain Constipation Hemorrhoids with complication Pelvic varices Surgical History History of hemorrhoidectomy Family History Maternal Aunt Breast cancer in female Mother HTN (hypertension) Social History Alcohol intake: former Patient Tobacco Use Status: Current everyday Tobacco user Tobacco use type: Cigarette Cigarettes Per Day: 10 Years Smoked: 14 Female Reproductive History Menstrual Age of Menarche: 10 Review of Systems Const Denies weight gain and Denies weight loss ENT Reports no additional complaints, Denies dysphagia and Denies odynophagia Card Reports no additional complaints Resp Reports no additional complaints GI Reports abdominal pain, Denies belching, Denies melena, Denies bloating, Denies change in bowel habits, Reports constipation, Denies dysphagia, Denies excessive flatus, Denies dyspepsia, Denies heartburn, Denies diarrhea, Denies loose stools, Denies nausea, Denies odynophagia and Denies vomiting Reports no additional complaints Musc Reports no additional complaints Neuro Reports no additional complaints Psych Reports no additional complaints Endo Reports no additional complaints Physical Exam Vital Signs: Last Vital Signs Pulse 101 H 08/27/23 08:21 BP 116/69 08/27/23 08:21 BMI result Body Mass Index 34.9 Const General: healthy appearing, no acute distress and well developed Nutritional Appearance: obese Orientation/consciousness: patient oriented x3 HEENT Head: Yes normal to inspection, Yes normocephalic and Yes atraumatic Face and sinus: Yes normal facial exam Mouth: Normal oral and palatal mucosa present Throat: Yes posterior oropharynx normal, Yes tonsils normal and Yes uvula midline Eyes General: appearance normal, both eyes and all related structures Neck Neck: Yes normal visual inspection, Yes full ROM and Yes trachea midline Thyroid: Thyroid normal Resp Effort & Inspection: normal respiratory effort, able to speak in complete sentences, no tracheal deviation and symmetric chest movement Auscultation: clear to auscultation bilaterally Cardio Rate: regular rate GI Inspection: Yes normal to inspection, No distended and Yes obesity Palpation (GI): Soft to palpation, not firm, nontender and No hepatosplenomegaly present Auscultation: normal bowel sounds General: Yes no CVA tenderness Back/Spine/Pelvis Back: no CVA tenderness Skin General skin exam: elasticity normal, turgor normal and dry skin Neuro General: patient oriented x3 Psych Appearance: grossly normal Mental Status: mental status grossly normal Assessment & Plan Assessment & Plan (1) Constipation: Code(s): K59.00 - Constipation, unspecified Qualifiers: Constipation type: chronic idiopathic constipation Qualified Code(s): K59.04 - Chronic idiopathic constipation (2) Abdominal pain: Code(s): R10.9 - Unspecified abdominal pain Qualifiers: Abdominal location: left upper quadrant Qualified Code(s): R10.12 - Left upper quadrant pain (3) LLQ abdominal pain: Code(s): R10.32 - Left lower quadrant pain (4) Abdominal bloating: Code(s): R14.0 - Abdominal distension (gaseous) Plan Will make sure that patient start taking Motegrity in the morning, can take magnesium at night time. Patient will start taking Linzess. Patient was encouraged to drink plenty fluids and increase activity to promote better bowel motility. Patient will return in 4 weeks, sooner on as needed basis. Patient is agreeable to this plan and verbalizes understanding of instructions. She was given the opportunity to ask questions and all questions answered. Thank you for allowing me to participate in her care Medications: Refilled docusate sodium 200 mg (2 x 100 mg) PO BEDTIME 180 caps 3RF K59.00 - Constipation, unspecified magnesium oxide 400 mg PO DAILY 30 caps 2RF K59.04 - Chronic idiopathic constipation prucalopride (Motegrity) 2 mg PO DAILY 30 tabs 2RF K59.04 - Chronic idiopathic constipation Coding Level of Care Code Est Pt Level 3 (57459) Diagnoses Chronic idiopathic constipation K59.04 Constipation type: chronic idiopathic constipation Left upper quadrant abdominal pain R10.12 Abdominal location: left upper quadrant LLQ abdominal pain R10.32 Abdominal bloating R14.0 Time Spent (min) 25 Comment 15 minutes spent with patient and additional 10 minutes spent reviewing her records
[2023-08-27 08:21] VITALS: BP 116/69; PULSE 101; BMI 34.9
== END 2023-08-27 09:14 | disposition home or self-care (01) ==
PROVIDERS: Visit Provider Nurse Practitioner Family
DX: K59.04 Chronic idiopathic constipation (principal); R10.12 Left upper quadrant pain; R10.32 Left lower quadrant pain; R14.0 Abdominal distension (gaseous)
CPT/HCPCS: 99213

== ENCOUNTER → 2023-08-27 08:08 | Outpatient (BNVA) | payer MEDICAID, SELFPAY | PROVIDERS: Visit Provider Nurse Practitioner Family | DX: K59.04 Chronic idiopathic constipation (principal); R10.12 Left upper quadrant pain; R10.32 Left lower quadrant pain; R14.0 Abdominal distension (gaseous) | CPT/HCPCS: 99212 ==

== ENCOUNTER 2023-09-17 08:05 | Outpatient (AMB) | payer MEDICAID, SELFPAY ==
--- NOTE | 2023-09-17 08:16 | A.OFFVIS_ITS ---
Intake Vital Signs 09/17/23 08:23 Height 5 ft 7 in Weight 220 lb 14.451 oz BMI 34.6 BP 121/66 Blood Pressure Location Rt brachial Position Sitting Pulse 82 Pulse Source Pulse Oximeter Intake Visit Reasons: Abdominal Pain, Med not working Intake Note: Casie presents in the office as a follow up for abdominal pains. Medication is not working. CC: Pt states the upper part of her abdomen is very painful all the time. Pt states she get nausea everyday and occasionally will get diarrhea. Allergies No Known Allergies Allergy (Mild, Verified 09/17/23 08:25) NOT APPLICABLE HPI Abdominal Pain, Med not working HPI Details LAST VISIT Constipation Abdominal pain LLQ abdominal pain Abdominal bloating Plan Will make sure that patient start taking Motegrity in the morning, can take magnesium at night time. Patient will start taking Linzess. Patient was encouraged to drink plenty fluids and increase activity to promote better bowel motility. Patient will return in 4 weeks, sooner on as needed basis. Patient is agreeable to this plan and verbalizes understanding of instructions. She was given the opportunity to ask questions and all questions answered. ? Thank you for allowing me to participate in her care Medications Refilled docusate sodium 200 mg (2 x 100 mg) PO BEDTIME 180 caps 3RF K59.00 magnesium oxide 400 mg PO DAILY 30 caps 2RF K59.04 prucalopride (Motegrity) 2 mg PO DAILY 30 tabs 2RF K59.04 TODAY'S VISIT: Patient is here today for requested visit. Patient reports that she started taking Motegrity and was able to move her bowels better, however lately she had to use Dulcolax in the evening in order for her to have a bowel movement. Patient reports that she is drinking about 5 x 8 oz bottles a day of water. Patient changed her diet. Drinking smoothies and eating healthier. Patient states that her PCP will decrease her Trulicity dose as this could be contributing to her symptoms as we discussed last visit. Patient denies any nausea or vomiting. Denies any melena, hematochezia, unintentional weight loss or ribbon like stools. Patient reports that the pain is in her lower abdomen radiating to her back. Sometimes pain feels like stabbing like pain. Patient also reports that she is going to be getting her menstrual cycle soon and usually that aggravates her pain. [facility] Medical History Anal pain Constipation Hemorrhoids with complication Pelvic varices Surgical History History of hemorrhoidectomy Family History Maternal Aunt Breast cancer in female Mother HTN (hypertension) Social History (Updated 09/17/23 @ 08:27 by Erin Santo MA) Alcohol intake: former Patient Tobacco Use Status: Current everyday Tobacco user Tobacco use type: Cigarette Cigarettes Per Day: 5 Years Smoked: 14 Female Reproductive History Menstrual Age of Menarche: 10 Review of Systems Const Denies weight gain and Denies weight loss ENT Reports no additional complaints, Denies dysphagia and Denies odynophagia Card Reports no additional complaints Resp Reports no additional complaints GI Reports abdominal pain (Lower abdomen), Denies belching, Denies melena, Reports bloating, Denies change in bowel habits, Reports constipation, Denies dysphagia, Denies excessive flatus, Denies dyspepsia, Denies heartburn, Denies diarrhea, Denies loose stools, Denies nausea, Denies odynophagia and Denies vomiting Reports no additional complaints Musc Reports no additional complaints Neuro Reports no additional complaints Psych Reports no additional complaints Endo Reports no additional complaints Physical Exam Vital Signs: Last Vital Signs Pulse 82 09/17/23 08:23 BP 121/66 09/17/23 08:23 BMI result Body Mass Index 34.6 Const General: healthy appearing, no acute distress and well developed Nutritional Appearance: obese Orientation/consciousness: patient oriented x3 Resp Effort & Inspection: normal respiratory effort, able to speak in complete sentences, no tracheal deviation and symmetric chest movement Auscultation: clear to auscultation bilaterally Cardio Rate: regular rate GI Inspection: Yes normal to inspection, No distended and Yes obesity Palpation (GI): Soft to palpation, not firm, nontender and No hepatosplenomegaly present Auscultation: normal bowel sounds General: Yes no CVA tenderness Back/Spine/Pelvis Back: no CVA tenderness Skin General skin exam: elasticity normal, turgor normal and dry skin Neuro General: patient oriented x3 Psych Appearance: grossly normal Mental Status: mental status grossly normal Assessment & Plan Assessment & Plan (1) Constipation: Code(s): K59.00 - Constipation, unspecified Qualifiers: Constipation type: chronic idiopathic constipation Qualified Code(s): K59.04 - Chronic idiopathic constipation (2) Abdominal pain: Code(s): R10.9 - Unspecified abdominal pain Qualifiers: Abdominal location: lower abdomen, unspecified Qualified Code(s): R10.30 - Lower abdominal pain, unspecified (3) LLQ abdominal pain: Code(s): R10.32 - Left lower quadrant pain (4) Abdominal bloating: Code(s): R14.0 - Abdominal distension (gaseous) Plan Continue Motegrity and Dulcolax tablets. Patient was encouraged to take Dulcolax tablets daily to help her eliminate her bowels better. Patient was encouraged to continue increasing water intake and activity to promote better bowel motility. High-fiber diet encouraged. Low FODMAP diet as discussed previously. Patient will follow-up in 3 weeks, sooner on as needed basis. Patient is agreeable to this plan and verbalizes understanding of instructions. She was given the opportunity to ask questions and all questions answered. Thank you for allowing me to participate in her care Coding Level of Care Code Est Pt Level 4 (08461) Diagnoses Chronic idiopathic constipation K59.04 Constipation type: chronic idiopathic constipation Lower abdominal pain R10.30 Abdominal location: lower abdomen, unspecified LLQ abdominal pain R10.32 Abdominal bloating R14.0 Time Spent (min) 35 Comment 20 minutes spent with patient and additional 15 minutes spent reviewing her records
[2023-09-17 08:23] VITALS: BP 121/66; PULSE 82; BMI 34.6
== END 2023-09-17 08:44 | disposition home or self-care (01) ==
PROVIDERS: Visit Provider Nurse Practitioner Family
DX: K59.04 Chronic idiopathic constipation (principal); R10.30 Lower abdominal pain, unspecified; R10.32 Left lower quadrant pain; R14.0 Abdominal distension (gaseous)
CPT/HCPCS: 99214

== ENCOUNTER → 2023-09-17 08:05 | Outpatient (BNVA) | payer MEDICAID, SELFPAY | PROVIDERS: Visit Provider Nurse Practitioner Family | DX: R10.32 Left lower quadrant pain (principal); R14.0 Abdominal distension (gaseous); K59.04 Chronic idiopathic constipation | CPT/HCPCS: 99212 ==

== ENCOUNTER 2023-09-19 09:57 | Outpatient (REF) | payer MEDICAID, SELFPAY ==
[2023-09-19 11:18] LABS: MANUAL DIFF FLAG NO
[2023-09-19 11:51] LABS: Basophils Percent Auto 0.5 % (0-2); Eosinophils Absolute Auto 0.1 X10*3/uL (0.0-0.4); Eosinophils Percent Auto 0.9 % (0-4); Hematocrit 40.6 % (37.0-47.0); Hemoglobin 13.5 g/dl (12.0-16.0); Imm Gran Abs Auto 0.02 X10*3/uL (0.00-0.03); Imm Gran Pct Auto 0.3 % (0.0-0.4); Lymphocytes Absolute Auto 2.5 X10*3/uL (1.2-4.9); Lymphocytes Percent Auto 32.7 % (20-40); Mean Corpuscular HGB Conc 33.3 g/dl (31.0-35.0); Mean Corpuscular Hemoglobin 30.3 pg (27.0-33.0); Mean Corpuscular Volume 91.2 fL (80.0-98.0); Mean Platelet Volume 9.4 fL (9.4-12.3); Monocytes Absolute Auto 0.5 X10*3/uL (0.1-1.2); Monocytes Percent Auto 6.7 % (2-11); Neutrophils Absolute Auto 4.5 x10*3/uL (2.0-8.3); Neutrophils Percent Auto 58.9 % (45-73); Platelet Count 386 X10*3/uL (160-400); Red Blood Count 4.45 X10*6/uL (4.20-5.50); White Blood Count 7.6 X10*3/uL (4.8-10.8)
[2023-09-19 12:14] LABS: Estimated Average Glucose 146 mg/dL; Hemoglobin A1C 176.4544 umol/L; Hemoglobin A1c % 6.7 % (<6.0)
[2023-09-19 12:25] LABS: HBsAGNum1 0.32 S/CO (0.00-0.99); Hepatitis B Surface Antigen Negative (Negative)
[2023-09-19 12:27] LABS: HBS Num1 115.35 mIU/mL (0-7.99); HIV AB/AG Nonreactive (Nonreactive); HIV Num 1 0.04 S/CO (0.00-0.99); ~HepC Num1 0.22 S/CO (0.00-0.79); ~Hepatitis B Surface Antibody REACTIVE (Nonreactive); ~Hepatitis C Antibody Nonreactive (Nonreactive)
[2023-09-19 12:47] LABS: Alanine Aminotransferase 26 U/L (0-31); Albumin Level 4.1 g/dL (3.5-5.0); Alkaline Phosphatase 84 U/L (39-117); Anion Gap 12 (12-20); Aspartate Amino Transferase 18 U/L (5-31); Bilirubin Direct 0.1 mg/dL (0.0-0.5); Bilirubin Total 0.4 mg/dL (0.0-1.0); Blood Urea Nitrogen 8 mg/dL (9-16); Calcium 9.5 mg/dL (8.4-10.2); Carbon Dioxide 26 mmol/L (22-29); Chloride 106 mmol/L (96-108); Cholesterol 154 mg/dL (<200); Estimated Glomerular Filt Rate > 60; Glucose Random 90 mg/dL (60-115); HDL Cholesterol 42 mg/dL (>40); LDL Cholesterol Calculated 90 mg/dL (<100); Sodium 140 mmol/L (135-145); Total Protein 7.5 g/dL (6.5-8.0); Triglycerides 112 mg/dL (<150)
[2023-09-19 12:56] LABS: Free T4 (Free Thyroxine) 1.03 ng/dL (0.71-1.85); Thyroid Stimulating Hormone 0.88 uIU/mL (0.32-4.0); Vitamin D 25-OH Total 20.4 ng/mL (>30)
[2023-09-22 09:54] LABS: RPR Rapid Plasma Reagin NON-REACTIVE (NON-REACTIVE)
== END 2023-09-19 09:58 | disposition home or self-care (01) ==
LOC: HO.HHCL 09:57
PROVIDERS: Visit Provider Family Medicine
DX: R22.1 Localized swelling, mass and lump, neck (principal)
CPT/HCPCS: 36415; 80048; 80061; 80076; 82306; 83036; 84439; 84443; 85025; 86592; 86706; 86803; 87340; 87389

== ENCOUNTER 2023-10-01 18:12 | Outpatient (REF) | payer MEDICAID, SELFPAY | END 2023-10-01 18:13 | disposition home or self-care (01) | LOC: HO.HHCLNP 18:12 | PROVIDERS: Visit Provider Emergency Medicine | DX: R05.9 Cough, unspecified (principal) | CPT/HCPCS: 87070 ==

== ENCOUNTER 2023-10-02 09:47 | Emergency (ER) | payer MEDICAID, SELFPAY ==
--- NOTE | ~2023-10-02 | CT_ITS ---
EXAMINATION: CT ABDOMEN AND PELVIS WITH CONTRAST CLINICAL INFORMATION: Right lower quadrant pain. COMPARISON: 05/04/2023 TECHNIQUE: Multidetector volumetric images were obtained from the superior aspect of the liver through the pubic symphysis following administration 85 mL of Omnipaque 350 intravenous contrast. Sagittal and coronal reformatted images were obtained on the technologist's workstation. Oral contrast: No This CT examination was performed using dose optimization techniques as appropriate, variously including the following: *Automated exposure control *Adjustment of mA and/or kV according to patient size (this includes techniques or standardized protocols for targeted exams where dose is matched to indication/reason for exam; i.e. extremities or head) *Use of iterative reconstruction technique DLP: 754 mGy-cm FINDINGS: LUNG BASES: No pleural or pericardial effusion. LIVER, GALLBLADDER, AND BILIARY TREE: The liver is normal in size and contour. No focal hepatic lesion or biliary ductal dilatation is present. The gallbladder is contracted. PANCREAS: Unremarkable. SPLEEN: Unremarkable. ADRENAL GLANDS: Unremarkable. KIDNEYS AND URETERS: The kidneys are normal in size, shape, and attenuation. No hydronephrosis. No perinephric stranding. BLADDER: Underdistended. GASTROINTESTINAL TRACT: The appendix is not visualized however there are no secondary signs of acute appendicitis. Normal and large bowel loops are of normal caliber. No small bowel obstruction. ABDOMINAL WALL: No significant hernia is appreciated. LYMPH NODES: No bulky lymphadenopathy. VASCULAR: Normal caliber abdominal aorta. PELVIC VISCERA: Retroverted uterus. Left pelvic venous congestion. Small free fluid in the pelvis. OSSEOUS STRUCTURES: No destructive bone lesions. CT/CT abdomen pelvis w IV con IMPRESSION: No acute abnormality in the abdomen or pelvis.
[2023-10-02 10:01] VITALS: BP 110/75; PULSE 102; RESP 19; TEMP 36.5; O2SAT 96; BMI 35.1
[2023-10-02 10:22] LABS: MANUAL DIFF FLAG NO
[2023-10-02 10:25] LABS: Appearance Urine Cloudy; Basophils Percent Auto 0.3 % (0-2); Color Urine Yellow; Eosinophils Absolute Auto 0.1 X10*3/uL (0.0-0.4); Glucose Urine UA Negative (Negative); Hematocrit 40.1 % (37.0-47.0); Hemoglobin 13.6 g/dl (12.0-16.0); Imm Gran Abs Auto 0.06 X10*3/uL (0.00-0.03); Imm Gran Pct Auto 0.5 % (0.0-0.4); Leukocyte Esterase Urine Negative (Negative); Lymphocytes Absolute Auto 1.9 X10*3/uL (1.2-4.9); Lymphocytes Percent Auto 15.6 % (20-40); Mean Corpuscular HGB Conc 33.9 g/dl (31.0-35.0); Mean Corpuscular Hemoglobin 30.6 pg (27.0-33.0); Mean Corpuscular Volume 90.3 fL (80.0-98.0); Mean Platelet Volume 8.8 fL (9.4-12.3); Monocytes Absolute Auto 0.8 X10*3/uL (0.1-1.2); Monocytes Percent Auto 6.2 % (2-11); Neutrophils Absolute Auto 9.3 x10*3/uL (2.0-8.3); Neutrophils Percent Auto 76.4 % (45-73); Nitrite Urine Negative (Negative); PH 5.5 (5.0-9.0); Platelet Count 375 X10*3/uL (160-400); Red Blood Count 4.44 X10*6/uL (4.20-5.50); Red Cell Distribution Width 12.6 % (11.0-16.0); Urine Blood Negative (Negative); Urine Ketones Negative (Negative); Urine Protein Negative (Neg-Trace); White Blood Count 12.2 X10*3/uL (4.8-10.8)
[2023-10-02 10:35] LABS: UPreg QC Valid YES; Urine Pregnancy NEGATIVE (NEGATIVE)
[2023-10-02 10:40] LABS: Alanine Aminotransferase 29 U/L (0-31); Albumin Level 4.1 g/dL (3.5-5.0); Alkaline Phosphatase 87 U/L (39-117); Anion Gap 12 (12-20); Aspartate Amino Transferase 19 U/L (5-31); Bilirubin Direct 0.2 mg/dL (0.0-0.5); Bilirubin Total 0.5 mg/dL (0.0-1.0); Blood Urea Nitrogen 12 mg/dL (9-16); Calcium 9.2 mg/dL (8.4-10.2); Carbon Dioxide 24 mmol/L (22-29); Chloride 106 mmol/L (96-108); Estimated Glomerular Filt Rate > 60; Glucose Random 133 mg/dL (60-115); Lipase 23 U/L (8-78); Potassium 3.7 mmol/L (3.3-5.1); Sodium 138 mmol/L (135-145); Total Protein 7.5 g/dL (6.5-8.0)
[2023-10-02] MEDS: Ketorolac Tromethamine 15 MG/ML VIAL IVPUSH (11:55)
[2023-10-02] MEDS: ondansetron HCL 4 MG/2 ML VIAL IVPUSH (11:55)
[2023-10-02] MEDS: 0.9 % Sodium Chloride 1,000 ML 999 ML IV (11:55)
--- NOTE | 2023-10-02 12:10 | ED.ABDPAIN ---
HPI - Abdominal Pain General Chief Complaint: Abdominal Pain Stated Complaint: abd pain Time Seen by Provider: 10/02/23 10:48 Source: patient Mode of arrival: ambulatory Limitations: no limitations History of Present Illness HPI narrative: 38 yo female with no sig PMH and no prior abdominal surgeries notes one week of RLQ pain and diarrhea no travel, food exposures or abx. No fevers, dysuria, n/v MD elicited complaint: abdominal pain Pertinent past history: none Onset (ago): week(s) (1) Pain Consistency: constant Location: none Radiation: none Migration to: no migration Exacerbating factors: eating Relieving factors: nothing Associated symptoms: diarrhea Related Data Home Medications Medication Instructions Recorded Confirmed metformin 500 mg tablet 500 mg PO BID 08/08/21 08/08/21 dulaglutide 1.5 mg/0.5 mL mg subcut 04/08/23 [facility] fluticasone propionate 50 2 spray intranasal DAILY 08/27/23 mcg/actuation nasal spray,suspension Previous Rx's Medication Instructions Recorded hydrocortisone 2.5 % topical cream 1 appl MS BID-QID PRN hemorrhoids 12/17/22 with perineal applicator #30 grams (Proctosol HC) ibuprofen 600 mg tablet 600 mg PO Q6H PRN fever or pain 03/02/23 #30 tabs bisacodyl 5 mg tablet,delayed 10 mg (2 x 5 mg) PO BEDTIME #180 04/08/23 release (Dulcolax (bisacodyl)) tabs magnesium hydroxide 400 mg/5 mL 30 ml PO DAILY PRN constipation 04/08/23 oral suspension (Milk of Magnesia) #355 mL docusate sodium 100 mg capsule 200 mg (2 x 100 mg) PO BEDTIME 08/27/23 #180 caps magnesium oxide 400 mg PO DAILY #30 caps 08/27/23 prucalopride 2 mg tablet 2 mg PO DAILY #30 tabs 08/27/23 (Motegrity) ibuprofen 600 mg tablet 600 mg PO Q6H PRN pain #30 tabs 10/02/23 Allergies Allergy/AdvReac Type Severity Reaction Status Date / Time No Known Allergies Allergy Mild NOT Verified 09/17/23 08:25 APPLICABLE Review of Systems Review of Systems Constitutional : No Weight loss, No Fever, No Chills ENT/Mouth : No sore throat, No Rhinorrhea Eyes: No Swelling, No Redness Cardiovascular : No Chest Pain, No SOB, NoEdema Respiratory : No Cough, No Sputum, No Wheezing Gastrointestinal : no Nausea, no Vomiting, positive Diarrhea, positive abdominal Pain, No Hematochezia, No Melena Genitourinary : No Dysuria, No Urinary Frequency, No Hematuria, No Urgency Musculoskeletal : No joint pain, No Myalgias, No Joint Swelling Skin : No Skin Lesions, No rash Neuro : No Weakness, No Numbness, No Dizziness, No Headache Psych : No Anxiety/Panic, No Depression Heme/Lymph: No Bruising, No Lymphadenopathy Endocrine : No Polyuria, No Polydipsia All other systems reviewed and are negative. [facility] Past Medical History Medical History Anal pain Constipation Hemorrhoids with complication Pelvic varices Surgical History History of hemorrhoidectomy Family History Family History Maternal Aunt Breast cancer in female Mother HTN (hypertension) Social History Social History (Updated 09/17/23 @ 08:27 by Erin Santo MA) Alcohol intake: former Patient Tobacco Use Status: Current everyday Tobacco user Tobacco use type: Cigarette Cigarettes Per Day: 5 Years Smoked: 16 Smoked in Last 30 Days: Yes Use of substances other than those prescribed or required for medical reasons: No Advance Directives: No Patient : No Physical Exam ED Vital Signs: Vital Signs - 24 hr 10/02/23 10:01 10/02/23 13:51 Temperature 97.7 F 97.6 F Pulse Rate 102 H 74 Respiratory Rate 19 18 Blood Pressure 110/75 94/54 L Pulse Oximetry 96 97 Oxygen Delivery Method Room Air Room Air BMI result Body Mass Index 35.1 Appearance: Alert. Oriented X3. No acute distress. Eyes: Pupils equal, round and reactive to light. ENT: Pharynx normal. Neck: Normal inspection. Neck supple. CVS: Normal heart rate and rhythm. Pulses normal. Respiratory: No respiratory distress. Breath sounds normal. Abdomen: Soft and moderate RLQ pain no rebound or guarding Skin: Skin warm and dry. Normal skin color. Normal skin turgor. Extremities: No lower extremity edema. No calf ttp Neuro: Oriented X 3. No motor deficit. No sensory deficit. Medical Decision Making Medical Decision Making [facility] Narrative: 38 yo female no sig PMH no past surgery here with c/o RLQ Pain and diarrhea at this time will obtain basic labs, UA, CT Scan for colitis, diverticulitis, appendicitis, IVF and IV toradol for pain. Differential Diagnosis Differential Diagnoses: The differential diagnosis associated with the presentation includes colitis, diverticulitis, appendicitis, Admission/Observation Consideration of admission/observation: Escalation of care including admission/observation considered negative workup stable for DC Lab Data [facility] Lab Attestation statement: I reviewed the patient's lab results. 10/02/23 10:17 10/02/23 10:17 Labs: Lab Results 10/02/23 Range/Units 10:17 WBC 12.2 H (4.8-10.8) X10*3/uL RBC 4.44 (4.20-5.50) X10*6/uL Hgb 13.6 (12.0-16.0) g/dl Hct 40.1 (37.0-47.0) % MCV 90.3 (80.0-98.0) fL MCH 30.6 (27.0-33.0) pg MCHC 33.9 (31.0-35.0) g/dl RDW 12.6 (11.0-16.0) % Plt Count 375 (160-400) X10*3/uL MPV 8.8 L (9.4-12.3) fL Immature Gran % (Auto) 0.5 H (0.0-0.4) % Neut % (Auto) 76.4 H (45-73) % Lymph % (Auto) 15.6 L (20-40) % [place] % (Auto) 6.2 (2-11) % Eos % (Auto) 1.0 (0-4) % Baso % (Auto) 0.3 (0-2) % Lymph # (Auto) 1.9 (1.2-4.9) X10*3/uL [place] # (Auto) 0.8 (0.1-1.2) X10*3/uL Eos # (Auto) 0.1 (0.0-0.4) X10*3/uL Baso # (Auto) 0.0 (0.0-0.2) X10*3/uL Abs Immat Gran (auto) 0.06 H (0.00-0.03) X10*3/uL Absolute Neuts (auto) 9.3 H (2.0-8.3) x10*3/uL Absolute Nucleated RBC 0.000 (0.0-0.012) X10*3/uL Nucleated RBC % (auto) 0.0 (0.0-0.2) /100WBC Sodium 138 (135-145) mmol/L Potassium 3.7 (3.3-5.1) mmol/L Chloride 106 (96-108) mmol/L Carbon Dioxide 24 (22-29) mmol/L Anion Gap 12 (12-20) BUN 12 (9-16) mg/dL Creatinine 0.70 (0.5-1.4) mg/dL Estim Creat Clear Calc 131.0 Estimated GFR > 60 Random Glucose 133 H (60-115) mg/dL Calcium 9.2 (8.4-10.2) mg/dL Total Bilirubin 0.5 (0.0-1.0) mg/dL Direct Bilirubin 0.2 (0.0-0.5) mg/dL AST 19 (5-31) U/L ALT 29 (0-31) U/L Alkaline Phosphatase 87 (39-117) U/L Total Protein 7.5 (6.5-8.0) g/dL Albumin 4.1 (3.5-5.0) g/dL Lipase 23 (8-78) U/L Urine Color Yellow Urine Appearance Cloudy Urine pH 5.5 (5.0-9.0) Ur Specific [place] 1.020 (1.005-1.025) Urine Protein Negative (Neg-Trace) mg/dL Urine Glucose (UA) Negative (Negative) mg/dL Urine Ketones Negative (Negative) mg/dL Urine Blood Negative (Negative) Urine Nitrite Negative (Negative) Ur Leukocyte Esterase Negative (Negative) Urine Test NEGATIVE (NEGATIVE) Independent Interpretation I performed an independent interpretation of an: CT Scan (no acute findings) Radiology Impression Discussion of test interpretation with radiology: I have reviewed the radiologist's reading. External Record Review External record reviewed: Office record Prescription Management I considered prescription management with: Other Medications Administered Discontinued Medications Generic Name Dose Route Start Last Admin Trade Name Freq PRN Reason Stop Dose Admin Sodium Chloride 1,000 mls @ 999 mls/hr 10/02/23 11:30 10/02/23 13:27 Ns IV 10/02/23 12:30 Infused .Q1H1M LIYA Infusion Iohexol 100 ml 10/02/23 12:25 10/02/23 12:25 Iohexol 350 Mg/Ml 100 Ml Infus..Btl IV 10/02/23 12:26 85 ml ONCE ONE Administration Ketorolac Tromethamine 15 mg 10/02/23 11:25 10/02/23 11:55 Ketorolac Tromethamine 15 Mg/Ml Vial IVPUSH 10/02/23 11:26 15 mg ONCE ONE Administration Ondansetron HCl 4 mg 10/02/23 11:25 10/02/23 11:55 Ondansetron Hcl 4 Mg/2 Ml Vial IVPUSH 10/02/23 11:26 4 mg ONCE ONE Administration Discharge Plan Discharge Clinical Impression: Abdominal pain Qualifiers: Abdominal location: right lower quadrant Qualified Code(s): R10.31 - Right lower quadrant pain Patient Disposition: Home, Self-Care Instructions: Abdominal Pain (ED) Additional Instructions: no acute findings on CT scan continue with flexeril. return for fevers, vomiting, inability to eat or drink worsening pain. eat a bland diet and stay hydrated. Prescriptions: New ibuprofen 600 mg tablet 600 mg PO Q6H PRN (Reason: pain) Qty: 30 0RF No Action ibuprofen 600 mg tablet 600 mg PO Q6H PRN (Reason: fever or pain) Qty: 30 0RF metformin 500 mg tablet 500 mg PO BID hydrocortisone [Proctosol HC] 2.5 % cream with perineal applicator 1 appl MS BID-QID PRN (Reason: hemorrhoids) Qty: 30 2RF Trulicity 1.5 mg/0.5 mL pen injector subcut bisacodyl [Dulcolax (bisacodyl)] 5 mg tablet,delayed release (DR/EC) 10 mg PO BEDTIME Qty: 180 4RF magnesium hydroxide [Milk of Magnesia] 400 mg/5 mL suspension 30 ml PO DAILY PRN (Reason: constipation) Qty: 355 0RF fluticasone propionate 50 mcg/actuation spray,suspension 2 spray intranasal DAILY docusate sodium 100 mg capsule 200 mg PO BEDTIME Qty: 180 3RF magnesium oxide 400 mg magnesium capsule 400 mg PO DAILY Qty: 30 2RF Motegrity 2 mg tablet 2 mg PO DAILY Qty: 30 2RF Stand Alone Forms: Work/School Release
[2023-10-02] MEDS: iohexoL 350 MG/ML 100 ML INFUS..BTL IV (12:25)
[2023-10-02 13:51] VITALS: BP 94/54; PULSE 74; RESP 18; TEMP 36.4; O2SAT 97
[2023-10-02 15:04] VITALS: BP 104/72; PULSE 80; RESP 16; TEMP 36.4; O2SAT 97
== END 2023-10-02 15:16 | disposition home or self-care (01) ==
PROVIDERS: Emergency Provider Emergency Medicine; PCP Family Medicine
DX: R10.31 Right lower quadrant pain (principal); F17.210 Nicotine dependence, cigarettes, uncomplicated; Z79.899 Other long term (current) drug therapy
CPT/HCPCS: 36415; 74177; 80048; 80076; 81003; 81025; 83690; 85025; 96361; 96374; 96375; 99284; J1885; J2405; Q9967

== ENCOUNTER 2023-10-16 11:40 | Outpatient (REF) | payer OTHER, SELFPAY ==
[2023-10-16 13:06] LABS: MANUAL DIFF FLAG NO
[2023-10-16 13:20] LABS: Basophils Percent Auto 0.5 % (0-2); Eosinophils Absolute Auto 0.1 X10*3/uL (0.0-0.4); Eosinophils Percent Auto 1.4 % (0-4); Hematocrit 40.5 % (37.0-47.0); Hemoglobin 13.8 g/dl (12.0-16.0); Imm Gran Abs Auto 0.03 X10*3/uL (0.00-0.03); Imm Gran Pct Auto 0.4 % (0.0-0.4); Lymphocytes Absolute Auto 2.8 X10*3/uL (1.2-4.9); Lymphocytes Percent Auto 32.4 % (20-40); Mean Corpuscular HGB Conc 34.1 g/dl (31.0-35.0); Mean Corpuscular Hemoglobin 30.7 pg (27.0-33.0); Mean Platelet Volume 9.4 fL (9.4-12.3); Monocytes Absolute Auto 0.5 X10*3/uL (0.1-1.2); Monocytes Percent Auto 5.3 % (2-11); Neutrophils Absolute Auto 5.1 x10*3/uL (2.0-8.3); Platelet Count 398 X10*3/uL (160-400); Red Cell Distribution Width 12.9 % (11.0-16.0); White Blood Count 8.5 X10*3/uL (4.8-10.8)
[2023-10-16 13:36] LABS: Appearance Urine Cloudy; Color Urine Yellow; Glucose Urine UA Negative (Negative); Leukocyte Esterase Urine Negative (Negative); Nitrite Urine Negative (Negative); PH 5.5 (5.0-9.0); Specific Gravity - Urine 1.015 (1.005-1.025); UMIC TRIGGER UACC YES; Urine Blood Small (1+) (Negative); Urine Ketones Negative (Negative); Urine Protein Negative (Neg-Trace)
[2023-10-16 13:39] LABS: Alanine Aminotransferase 25 U/L (0-31); Albumin Level 4.3 g/dL (3.5-5.0); Alkaline Phosphatase 96 U/L (39-117); Aspartate Amino Transferase 18 U/L (5-31); Bilirubin Direct 0.2 mg/dL (0.0-0.5); Bilirubin Total 0.7 mg/dL (0.0-1.0); C Reactive Protein 0.38 mg/dL (< or = 0.50); Total Protein 7.6 g/dL (6.5-8.0)
[2023-10-16 13:57] LABS: Bacteria Urine None Seen (None Seen); Hyaline Casts Urine 0-2 /LPF (0-2); RBC Urine 0-2 /HPF (0-2); WBC Urine 0-5 /HPF (0-5)
[2023-10-16 14:17] LABS: Erythrocyte Sedimentation Rate 22 MM/HR (0-20)
== END 2023-10-16 11:41 | disposition home or self-care (01) ==
LOC: HO.HHCL 11:40
PROVIDERS: Visit Provider Internal Medicine
DX: R10.12 Left upper quadrant pain (principal)
CPT/HCPCS: 36415; 80076; 81001; 85025; 85652; 86140

== ENCOUNTER 2023-10-20 08:28 | Outpatient (AMB) | payer MEDICAID, SELFPAY ==
--- NOTE | 2023-10-20 08:33 | A.OFFVIS_ITS ---
Intake Vital Signs 10/20/23 08:40 Height 5 ft 7 in Weight 223 lb BMI 34.9 BP 121/68 Blood Pressure Location Lt brachial Position Sitting Pulse 80 Intake Visit Reasons: 3 Weeks Follow Up Intake Note: Casie presents in the office as a 3 week follow up. CC: She states that she feels good but the last two weeks she was having nausea and vomiting. She wants to change her medication. She wants to stop the motegrity and go back to linzess. 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 Patient was encouraged to take Dulcolax tablets daily to help her eliminate her bowels better. Patient was encouraged to continue increasing water intake and activity to promote better bowel motility. High-fiber diet encouraged. Low FODMAP diet as discussed previously. Patient will follow-up in 3 weeks, sooner on as needed basis. Patient is agreeable to this plan and verbalizes understanding of instructions. She was given the opportunity to ask questions and all questions answered. ? TODAY'S VISIT: Patient is here today for follow-up. Patient was unable to take Motegrity due to her job. 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 Patient states that she tried Dulcolax tablets and it work but it takes couple days before having a bowel movement states that she changed her diet, trying to drink prune juice and feels like is doing better. Patient has less abdominal cramping. Patient would like to go back to taking Linzess like she did before. Patient denies any dyspepsia, dysphagia or odynophagia. Patient denies any melena, hematochezia, unintentional weight loss or ribbon like stools. [facility] Medical History Anal pain Constipation Hemorrhoids with complication Pelvic varices Surgical History History of hemorrhoidectomy Family History Maternal Aunt Breast cancer in female Mother HTN (hypertension) Social History (Updated 09/17/23 @ 08:27 by Erin Santo MA) Alcohol intake: former Patient Tobacco Use Status: Current everyday Tobacco user Tobacco use type: Cigarette Cigarettes Per Day: 5 Years Smoked: 16 Female Reproductive History Menstrual Age of Menarche: 10 Review of Systems Const Denies weight gain and Denies weight loss ENT Reports no additional complaints, Denies dysphagia and Denies odynophagia Card Reports no additional complaints Resp Reports no additional complaints GI Denies abdominal pain, Denies belching, Denies melena, Denies bloating, Denies change in bowel habits, Reports constipation, Denies dysphagia, Denies excessive flatus, Denies dyspepsia, Denies heartburn, Denies diarrhea, Denies loose stools, Denies nausea, Denies odynophagia and Denies vomiting Reports no additional complaints Musc Reports no additional complaints Neuro Reports no additional complaints Psych Reports no additional complaints Endo Reports no additional complaints Physical Exam Vital Signs: Last Vital Signs Pulse 80 10/20/23 08:40 BP 121/68 10/20/23 08:40 BMI result Body Mass Index 34.9 Const General: healthy appearing, no acute distress and well developed Nutritional Appearance: obese Orientation/consciousness: patient oriented x3 Resp Effort & Inspection: normal respiratory effort, able to speak in complete sentences, no tracheal deviation and symmetric chest movement Auscultation: clear to auscultation bilaterally Cardio Rate: regular rate GI Inspection: Yes normal to inspection, No distended and Yes obesity Palpation (GI): Soft to palpation, not firm, nontender and No hepatosplenomegaly present Auscultation: normal bowel sounds General: Yes no CVA tenderness Back/Spine/Pelvis Back: no CVA tenderness Skin General skin exam: elasticity normal, turgor normal and dry skin Neuro General: patient oriented x3 Psych Appearance: grossly normal Mental Status: mental status grossly normal Assessment & Plan Assessment & Plan (1) Constipation: Code(s): K59.00 - Constipation, unspecified Qualifiers: Constipation type: chronic idiopathic constipation Qualified Code(s): K59.04 - Chronic idiopathic constipation (2) Abdominal pain: Code(s): R10.9 - Unspecified abdominal pain Qualifiers: Abdominal location: left lower quadrant Qualified Code(s): R10.32 - Left lower quadrant pain (3) LLQ abdominal pain: Code(s): R10.32 - Left lower quadrant pain (4) Abdominal bloating: Code(s): R14.0 - Abdominal distension (gaseous) Plan Patient was encouraged to increase fluid intake and activity to promote better bowel motility. Patient can start taking Linzess 290 mcg daily. If no bowel movements for 2 days patient can take Dulcolax tablets at night time. Patient will return in the office in 3 months, sooner on as needed basis. Patient is agreeable to this plan and verbalizes understanding of instructions. She was given the opportunity to ask questions and all questions answered. Thank you for allowing me to participate in her care Medications: New linaclotide (Linzess) 290 mcg PO QAM 30 caps 4RF K59.00 - Constipation, unspecified Discontinued prucalopride (Motegrity) Discontinued Reason: Doctor's Order 2 mg PO DAILY 30 tabs 2RF K59.04 - Chronic idiopathic constipation Coding Level of Care Code Est Pt Level 3 (59253) Diagnoses Chronic idiopathic constipation K59.04 Constipation type: chronic idiopathic constipation Left lower quadrant abdominal pain R10.32 Abdominal location: left lower quadrant LLQ abdominal pain R10.32 Abdominal bloating R14.0 Time Spent (min) 30 Comment 20 minutes spent with patient and additional 10 minutes spent reviewing her records
[2023-10-20 08:40] VITALS: BP 121/68; PULSE 80; BMI 34.9
== END 2023-10-20 08:56 | disposition home or self-care (01) ==
PROVIDERS: PCP Family Medicine; Visit Provider Nurse Practitioner Family
DX: K59.04 Chronic idiopathic constipation (principal); R10.32 Left lower quadrant pain; R14.0 Abdominal distension (gaseous)
CPT/HCPCS: 99213

== ENCOUNTER → 2023-10-20 08:28 | Outpatient (BNVA) | payer OTHER, SELFPAY | PROVIDERS: PCP Family Medicine; Visit Provider Nurse Practitioner Family | DX: K59.04 Chronic idiopathic constipation (principal); R10.32 Left lower quadrant pain; R14.0 Abdominal distension (gaseous) | CPT/HCPCS: 99212 ==

== ENCOUNTER 2023-11-11 16:47 | Emergency (ER) | payer OTHER, SELFPAY ==
--- NOTE | ~2023-11-11 | CT_ITS ---
EXAMINATION: CT head/brain wo IV con, CT cervical spine wo IV con INDICATION INFORMATION: Reason for Exam headache COMPARISON: None TECHNIQUE: Separate noncontrast CT examinations of the head and cervical spine were performed. Coronal and sagittal images were created for each examination at the technologist workstation. This CT examination was performed using dose optimization techniques as appropriate, variously including the following: *Automated exposure control *Adjustment of mA and/or kV according to patient size (this includes techniques or standardized protocols for targeted exams where dose is matched to indication/reason for exam; i.e. extremities or head) *Use of iterative reconstruction technique DLP: 1323.09 mGy-cm FINDINGS: Head: No acute osseous or soft tissue abnormality. The mastoids are clear. Left maxillary sinus retention cyst. There is no evidence of acute intracranial hemorrhage or territorial infarction. No abnormal mass effect or midline shift is seen. Mc to white matter differentiation is well preserved. No extra-axial fluid collections are identified. No hydrocephalus. No significant volume loss. There is no abnormal attenuation within the brain parenchyma. Cervical spine: There is no evidence of acute cervical spine fracture. Vertebral bodies remain normal in height. Loss of the usual cervical spine lordosis. Disc space heights are maintained. No pre- or paravertebral soft tissue abnormality is identified. Visualized portions of the lung apices are unremarkable. The thyroid gland is unremarkable. CT/CT cervical spine wo IV con IMPRESSION: 1. No acute intracranial abnormality. 2. No cervical spine fracture or traumatic malalignment.
--- NOTE | ~2023-11-11 | CT_ITS ---
EXAMINATION: CT head/brain wo IV con, CT cervical spine wo IV con INDICATION INFORMATION: Reason for Exam headache COMPARISON: None TECHNIQUE: Separate noncontrast CT examinations of the head and cervical spine were performed. Coronal and sagittal images were created for each examination at the technologist workstation. This CT examination was performed using dose optimization techniques as appropriate, variously including the following: *Automated exposure control *Adjustment of mA and/or kV according to patient size (this includes techniques or standardized protocols for targeted exams where dose is matched to indication/reason for exam; i.e. extremities or head) *Use of iterative reconstruction technique DLP: 1323.09 mGy-cm FINDINGS: Head: No acute osseous or soft tissue abnormality. The mastoids are clear. Left maxillary sinus retention cyst. There is no evidence of acute intracranial hemorrhage or territorial infarction. No abnormal mass effect or midline shift is seen. Mc to white matter differentiation is well preserved. No extra-axial fluid collections are identified. No hydrocephalus. No significant volume loss. There is no abnormal attenuation within the brain parenchyma. Cervical spine: There is no evidence of acute cervical spine fracture. Vertebral bodies remain normal in height. Loss of the usual cervical spine lordosis. Disc space heights are maintained. No pre- or paravertebral soft tissue abnormality is identified. Visualized portions of the lung apices are unremarkable. The thyroid gland is unremarkable. CT/CT head/brain wo IV con IMPRESSION: 1. No acute intracranial abnormality. 2. No cervical spine fracture or traumatic malalignment.
[2023-11-11 16:54] VITALS: BP 126/80; PULSE 82; RESP 20; TEMP 36.7; O2SAT 97; BMI 35.5
--- NOTE | 2023-11-11 16:59 | ED_ITS ---
HPI - Neuro Symptoms/Deficit General Chief Complaint: Neuro Symptoms/Deficit Stated Complaint: left side numb/eye pain/fingers tingly Related Data Home Medications Medication Instructions Recorded Confirmed metformin 500 mg tablet 500 mg PO BID 08/08/21 08/08/21 fluticasone propionate 50 2 spray intranasal DAILY 08/27/23 mcg/actuation nasal spray,suspension dulaglutide 0.75 mg/0.5 mL mg subcut QWEEK 10/20/23 subcutaneous pen injector (Trulicity) Previous Rx's Medication Instructions Recorded hydrocortisone 2.5 % topical cream 1 appl DC BID-QID PRN hemorrhoids 12/17/22 with perineal applicator #30 grams (Proctosol HC) bisacodyl 5 mg tablet,delayed 10 mg (2 x 5 mg) PO BEDTIME #180 04/08/23 release (Dulcolax (bisacodyl)) tabs magnesium hydroxide 400 mg/5 mL 30 ml PO DAILY PRN constipation 04/08/23 oral suspension (Milk of Magnesia) #355 mL docusate sodium 100 mg capsule 200 mg (2 x 100 mg) PO BEDTIME 08/27/23 #180 caps magnesium oxide 400 mg PO DAILY #30 caps 08/27/23 ibuprofen 600 mg tablet 600 mg PO Q6H PRN pain #30 tabs 10/02/23 linaclotide 290 mcg capsule 290 mcg PO QAM #30 caps 10/20/23 (Linzess) Allergies Allergy/AdvReac Type Severity Reaction Status Date / Time No Known Allergies Allergy Mild NOT Verified 11/11/23 16:57 APPLICABLE [facility] Past Medical History Medical History Anal pain Constipation Hemorrhoids with complication Pelvic varices Surgical History History of hemorrhoidectomy Family History Family History Maternal Aunt Breast cancer in female Mother HTN (hypertension) Social History Social History (Updated 09/17/23 @ 08:27 by Erin Santo MA) Alcohol intake: former Patient Tobacco Use Status: Current everyday Tobacco user Tobacco use type: Cigarette Cigarettes Per Day: 5 Years Smoked: 16 Advance Directives: No Advance Directives Information Provided: No Physical Exam 2 Vital Signs: Vital Signs: Last Vital Signs Temp 98.0 F 11/11/23 16:54 Pulse 82 11/11/23 16:54 Resp 20 11/11/23 16:54 BP 126/80 11/11/23 16:54 Pulse Ox 97 11/11/23 16:54 O2 Del Method Room Air 11/11/23 16:54 BMI result Body Mass Index 35.5 Course Course Course Narrative: This is an RME: Additional HPI, ROS, PE not included below will be deferred to primary provider. This is a [id number]-female, with a hx of diabetes, presenting to the ER with a complaints of CAPUTO x 3 weeks. Reporting some numbness/tingling in her left arm and leg. She states that she has been checking her sugar at home which has been elevated, she was told by her primary care physician to get checked out. She is neurologically intact, negative pronator drift, symmetric smile. No other focal deficits on examination. Plan: Labs, CT head and neck, EKG Reevaluation(s) Reevaluation #1: Patient left without completing treatment. Medical Decision Making Lab Data 11/11/23 18:07 11/11/23 18:07 Labs: Lab Results 11/11/23 11/11/23 Range/Units 18:04 18:07 WBC 11.2 H (4.8-10.8) X10*3/uL RBC 4.45 (4.20-5.50) X10*6/uL Hgb 13.4 (12.0-16.0) g/dl Hct 39.0 (37.0-47.0) % MCV 87.6 (80.0-98.0) fL MCH 30.1 (27.0-33.0) pg MCHC 34.4 (31.0-35.0) g/dl RDW 12.7 (11.0-16.0) % Plt Count 328 (160-400) X10*3/uL MPV 8.6 L (9.4-12.3) fL Immature Gran % (Auto) 0.2 (0.0-0.4) % Neut % (Auto) 55.8 (45-73) % Lymph % (Auto) 36.0 (20-40) % [place] % (Auto) 6.2 (2-11) % Eos % (Auto) 1.4 (0-4) % Baso % (Auto) 0.4 (0-2) % Lymph # (Auto) 4.1 (1.2-4.9) X10*3/uL [place] # (Auto) 0.7 (0.1-1.2) X10*3/uL Eos # (Auto) 0.2 (0.0-0.4) X10*3/uL Baso # (Auto) 0.1 (0.0-0.2) X10*3/uL Abs Immat Gran (auto) 0.02 (0.00-0.03) X10*3/uL Absolute Neuts (auto) 6.3 (2.0-8.3) x10*3/uL Absolute Nucleated RBC 0.000 (0.0-0.012) X10*3/uL Nucleated RBC % (auto) 0.0 (0.0-0.2) /100WBC Sodium 137 (135-145) mmol/L Potassium 3.8 (3.3-5.1) mmol/L Chloride 106 (96-108) mmol/L Carbon Dioxide 25 (22-29) mmol/L Anion Gap 10 L (12-20) BUN 9 (9-16) mg/dL Creatinine 0.70 (0.5-1.4) mg/dL Estim Creat Clear Calc 127.2 Estimated GFR > 60 POC Glucose 148 H (60-115) mg/dL Random Glucose 153 H (60-115) mg/dL Calcium 9.5 (8.4-10.2) mg/dL Magnesium 1.9 (1.6-2.6) mg/dL Total Bilirubin 0.6 (0.0-1.0) mg/dL Direct Bilirubin 0.2 (0.0-0.5) mg/dL AST 16 (5-31) U/L ALT 24 (0-31) U/L Alkaline Phosphatase 95 (39-117) U/L Troponin I High Sens < 2.7 (<3.5-17.0) ng/L Total Protein 7.6 (6.5-8.0) g/dL Albumin 4.2 (3.5-5.0) g/dL Discharge Plan Discharge Clinical Impression: Headache Patient Disposition: Left W/O Completing Treatment Prescriptions: No Action ibuprofen 600 mg tablet 600 mg PO Q6H PRN (Reason: pain) Qty: 30 0RF metformin 500 mg tablet 500 mg PO BID hydrocortisone [Proctosol HC] 2.5 % cream with perineal applicator 1 appl DC BID-QID PRN (Reason: hemorrhoids) Qty: 30 2RF bisacodyl [Dulcolax (bisacodyl)] 5 mg tablet,delayed release (DR/EC) 10 mg PO BEDTIME Qty: 180 4RF magnesium hydroxide [Milk of Magnesia] 400 mg/5 mL suspension 30 ml PO DAILY PRN (Reason: constipation) Qty: 355 0RF fluticasone propionate 50 mcg/actuation spray,suspension 2 spray intranasal DAILY docusate sodium 100 mg capsule 200 mg PO BEDTIME Qty: 180 3RF magnesium oxide 400 mg magnesium capsule 400 mg PO DAILY Qty: 30 2RF Trulicity 0.75 mg/0.5 mL pen injector subcut QWEEK Linzess 290 mcg capsule 290 mcg PO QAM Qty: 30 4RF Discharge Date/Time: 11/11/23 23:16
[2023-11-11 18:12] LABS: MANUAL DIFF FLAG NO
[2023-11-11 18:13] LABS: Basophils Absolute Auto 0.1 X10*3/uL (0.0-0.2); Basophils Percent Auto 0.4 % (0-2); Eosinophils Absolute Auto 0.2 X10*3/uL (0.0-0.4); Eosinophils Percent Auto 1.4 % (0-4); Hemoglobin 13.4 g/dl (12.0-16.0); Imm Gran Abs Auto 0.02 X10*3/uL (0.00-0.03); Imm Gran Pct Auto 0.2 % (0.0-0.4); Lymphocytes Absolute Auto 4.1 X10*3/uL (1.2-4.9); Mean Corpuscular HGB Conc 34.4 g/dl (31.0-35.0); Mean Corpuscular Hemoglobin 30.1 pg (27.0-33.0); Mean Corpuscular Volume 87.6 fL (80.0-98.0); Mean Platelet Volume 8.6 fL (9.4-12.3); Monocytes Absolute Auto 0.7 X10*3/uL (0.1-1.2); Monocytes Percent Auto 6.2 % (2-11); Neutrophils Absolute Auto 6.3 x10*3/uL (2.0-8.3); Neutrophils Percent Auto 55.8 % (45-73); Platelet Count 328 X10*3/uL (160-400); Red Blood Count 4.45 X10*6/uL (4.20-5.50); Red Cell Distribution Width 12.7 % (11.0-16.0); White Blood Count 11.2 X10*3/uL (4.8-10.8)
--- NOTE | 2023-11-11 18:13 | MHC.EDTECH ---
PATIENT BLOOD DRAWN AND SENT TO LAB ,BLOOD SUGAR CHECK ,DEEPAK LEA IS AWARE OF THE RESULT .
[2023-11-11 18:29] LABS: Alanine Aminotransferase 24 U/L (0-31); Albumin Level 4.2 g/dL (3.5-5.0); Alkaline Phosphatase 95 U/L (39-117); Anion Gap 10 (12-20); Aspartate Amino Transferase 16 U/L (5-31); Bilirubin Direct 0.2 mg/dL (0.0-0.5); Bilirubin Total 0.6 mg/dL (0.0-1.0); Blood Urea Nitrogen 9 mg/dL (9-16); Calcium 9.5 mg/dL (8.4-10.2); Carbon Dioxide 25 mmol/L (22-29); Chloride 106 mmol/L (96-108); Creatinine Clr Calc Pharmacy 127.2; Estimated Glomerular Filt Rate > 60; Glucose Random 153 mg/dL (60-115); Magnesium 1.9 mg/dL (1.6-2.6); Potassium 3.8 mmol/L (3.3-5.1); Sodium 137 mmol/L (135-145); Total Protein 7.6 g/dL (6.5-8.0)
[2023-11-11 18:34] LABS: Glucose, Whole Blood 148 mg/dL (60-115)
[2023-11-11 18:38] LABS: Troponin-I High Sensitivity < 2.7 ng/L (<3.5-17.0)
--- NOTE | 2023-11-11 23:14 | PC.NURSE ---
Pt notified front end developer javascript html css leaving without completing treatment, did not notify RN.
== END 2023-11-11 23:16 | disposition left against medical advice (07) ==
LOC: HO.ED 23:14
PROVIDERS: Physician Assistant Medical; Emergency Provider Emergency Medicine; PCP Family Medicine
DX: R51.9 Headache, unspecified (principal); R20.0 Anesthesia of skin; M54.2 Cervicalgia; F17.200 Nicotine dependence, unspecified, uncomplicated; Z79.899 Other long term (current) drug therapy
CPT/HCPCS: 36415; 70450; 72125; 80048; 80076; 82947; 83735; 84484; 85025; 99282; 99284

== ENCOUNTER 2024-01-25 10:22 | Emergency (ER) | payer OTHER, SELFPAY ==
[2024-01-25 10:30] VITALS: BP 118/73; PULSE 87; RESP 16; TEMP 36.7; O2SAT 97; BMI 35.3
--- NOTE | 2024-01-25 10:33 | PC.NURSE ---
Neuros intact in triage, steady gait
[2024-01-25 10:48] LABS: MANUAL DIFF FLAG NO
[2024-01-25 10:50] LABS: Appearance Urine Clear; Color Urine Yellow; Glucose Urine UA Negative (Negative); Leukocyte Esterase Urine Small (1+) (Negative); Nitrite Urine Negative (Negative); PH 5.5 (5.0-9.0); UMIC TRIGGER UACC YES; Urine Blood Negative (Negative); Urine Ketones Negative (Negative); Urine Protein Negative (Neg-Trace)
[2024-01-25 10:51] LABS: Glucose, Whole Blood 143 mg/dL (60-115)
[2024-01-25 10:52] LABS: UPreg QC Valid YES; Urine Pregnancy NEGATIVE (NEGATIVE)
[2024-01-25 10:58] LABS: Basophils Absolute Auto 0.1 X10*3/uL (0.0-0.2); Basophils Percent Auto 0.6 % (0-2); Eosinophils Absolute Auto 0.1 X10*3/uL (0.0-0.4); Eosinophils Percent Auto 1.2 % (0-4); Hematocrit 39.7 % (37.0-47.0); Hemoglobin 13.7 g/dl (12.0-16.0); Imm Gran Abs Auto 0.01 X10*3/uL (0.00-0.03); Imm Gran Pct Auto 0.1 % (0.0-0.4); Lymphocytes Absolute Auto 2.4 X10*3/uL (1.2-4.9); Lymphocytes Percent Auto 30.7 % (20-40); Mean Corpuscular HGB Conc 34.5 g/dl (31.0-35.0); Mean Corpuscular Hemoglobin 30.9 pg (27.0-33.0); Mean Corpuscular Volume 89.6 fL (80.0-98.0); Mean Platelet Volume 8.8 fL (9.4-12.3); Monocytes Absolute Auto 0.5 X10*3/uL (0.1-1.2); Neutrophils Absolute Auto 4.8 x10*3/uL (2.0-8.3); Neutrophils Percent Auto 61.4 % (45-73); Platelet Count 347 X10*3/uL (160-400); Red Blood Count 4.43 X10*6/uL (4.20-5.50); Red Cell Distribution Width 13.1 % (11.0-16.0); White Blood Count 7.8 X10*3/uL (4.8-10.8)
[2024-01-25 11:04] LABS: Bacteria Urine 1+ (None Seen); Hyaline Casts Urine 0-2 /LPF (0-2); RBC Urine 0-2 /HPF (0-2); UACC Culture Trigger YES; WBC Urine 0-5 /HPF (0-5)
[2024-01-25 11:16] LABS: Alanine Aminotransferase 24 U/L (0-31); Albumin Level 4.3 g/dL (3.5-5.0); Alkaline Phosphatase 79 U/L (39-117); Anion Gap 12 (12-20); Aspartate Amino Transferase 16 U/L (5-31); Bilirubin Total 0.3 mg/dL (0.0-1.0); Blood Urea Nitrogen 13 mg/dL (9-16); Calcium 9.4 mg/dL (8.4-10.2); Carbon Dioxide 20 mmol/L (22-29); Chloride 109 mmol/L (96-108); Creatinine Clr Calc Pharmacy 145.9; Estimated Glomerular Filt Rate > 60; Glucose Random 150 mg/dL (60-115); Sodium 137 mmol/L (135-145); Total Protein 7.6 g/dL (6.5-8.0)
== END 2024-01-25 15:50 | disposition left against medical advice (07) ==
PROVIDERS: Emergency Provider Emergency Medicine; PCP Family Medicine
DX: R20.2 Paresthesia of skin (principal); R11.0 Nausea
CPT/HCPCS: 36415; 80053; 81001; 81025; 82947; 85025; 87086; 99282; 99283

== ENCOUNTER 2024-01-27 10:14 | Outpatient (REF) | payer OTHER, SELFPAY ==
[2024-01-27 13:28] LABS: TSH reflex Free T4 1.26 uIU/mL (0.32-4.0)
[2024-01-27 13:38] LABS: Folate 10.4 ng/mL (> or = 4.0); Vitamin B12 340 pg/mL (200-900)
[2024-01-29 09:03] LABS: RPR Rapid Plasma Reagin NON-REACTIVE (NON-REACTIVE)
== END 2024-01-27 10:15 | disposition home or self-care (01) ==
LOC: HO.HHCL 10:14
PROVIDERS: Visit Provider General Practice
DX: G62.9 Polyneuropathy, unspecified (principal)
CPT/HCPCS: 36415; 82607; 82746; 84443; 86592

== ENCOUNTER 2024-03-30 15:41 | Outpatient (AMB) | payer OTHER, SELFPAY ==
--- NOTE | 2024-03-30 15:43 | MHC.OFFVIS ---
Vital Signs 03/30/24 15:45 Height 5 ft 6 in Weight 224 lb 13.944 oz BMI 36.3 BP 111/64 Blood Pressure Location Lt brachial Position Sitting Pulse 80 Intake Visit Reasons: 3 mos FUV Intake Note: Casie presents in the office as a 3 month follow up. CC: She states that her constipation is still a concern. She is still dealing with that. Bloating in the stomach, No blood in her stools. Allergies No Known Allergies Allergy (Mild, Verified 03/30/24 15:45) NOT APPLICABLE HPI HPI 3 mos FUV: Details: LAST VISIT: Constipation Abdominal pain LLQ abdominal pain Abdominal bloating Plan Patient was encouraged to increase fluid intake and activity to promote better bowel motility. Patient can start taking Linzess 290 mcg daily. If no bowel movements for 2 days patient can take Dulcolax tablets at night time. Patient will return in the office in 3 months, sooner on as needed basis. Patient is agreeable to this plan and verbalizes understanding of instructions. She was given the opportunity to ask questions and all questions answered. ? Thank you for allowing me to participate in her care Medications New linaclotide (Linzess) 290 mcg PO QAM 30 caps 4RF K59.00 Discontinued prucalopride (Motegrity) Discontinued Reason: Doctor's Order 2 mg PO DAILY 30 tabs 2RF K59.04 TODAY'S VISIT Patient is here today for follow-up. Patient reports that she is doing little better, however she continues to be constipated. Patient reports that depends what she will eat she might have abdominal bloating that is worse when she has no bowel movement. Patient reports right lower and left lower quadrant pain with constipation. Takes Linzess 290 mcg every morning and 2 Dulcolax tablets in the evening and still does not feel like she empties her bowels completely. Patient states that she is not drinking enough fluid. Started doing juices like smoothies. Green juices with celery and cilantro and had a bowel movement. Patient states that milk of magnesia does not work for her. Tried magnesium citrate in the past and states that it was working. Patient denies melena, hematochezia. Denies dyspepsia, dysphagia or odynophagia. [facility] Medical History Anal pain Constipation Hemorrhoids with complication Pelvic varices Surgical History History of hemorrhoidectomy Family History Maternal Aunt Breast cancer in female Mother HTN (hypertension) Social History Alcohol intake: former Patient Tobacco Use Status: Current everyday Tobacco user Tobacco use type: Cigarette Cigarettes Per Day: 5 Years Smoked: 16 Female Reproductive History Menstrual Age of Menarche: 10 Review of Systems Const Denies weight gain and Denies weight loss ENT Reports no additional complaints, Denies dysphagia and Denies odynophagia Card Reports no additional complaints Resp Reports no additional complaints GI Denies abdominal pain, Denies belching, Denies melena, Denies bloating, Denies change in bowel habits, Reports constipation, Denies dysphagia, Denies excessive flatus, Denies dyspepsia, Denies heartburn, Denies diarrhea, Denies loose stools, Denies nausea, Denies odynophagia and Denies vomiting Reports no additional complaints Musc Reports no additional complaints Neuro Reports no additional complaints Psych Reports no additional complaints Endo Reports no additional complaints Physical Exam Vital Signs: Last Vital Signs Pulse 80 03/30/24 15:45 BP 111/64 03/30/24 15:45 BMI result Body Mass Index 36.3 Const General: healthy appearing and no acute distress Nutritional Appearance: obese Orientation/consciousness: patient oriented x3 Resp Effort & Inspection: normal respiratory effort, able to speak in complete sentences, no tracheal deviation and symmetric chest movement Auscultation: clear to auscultation bilaterally Cardio Rate: regular rate GI Inspection: Yes normal to inspection, No distended and Yes obesity Palpation (GI): Soft to palpation, not firm, nontender and No hepatosplenomegaly present Auscultation: normal bowel sounds General: Yes no CVA tenderness Back/Spine/Pelvis Back: no CVA tenderness Skin General skin exam: elasticity normal, turgor normal and dry skin Neuro General: patient oriented x3 Psych Appearance: grossly normal Mental Status: mental status grossly normal Assessment & Plan Assessment & Plan (1) Constipation: Code(s): K59.00 - Constipation, unspecified Category: Medical Qualifiers: Constipation type: chronic idiopathic constipation Qualified Code(s): K59.04 - Chronic idiopathic constipation (2) Abdominal pain: Code(s): R10.9 - Unspecified abdominal pain Qualifiers: Abdominal location: left lower quadrant Qualified Code(s): R10.32 - Left lower quadrant pain (3) LLQ abdominal pain: Code(s): R10.32 - Left lower quadrant pain (4) Abdominal bloating: Code(s): R14.0 - Abdominal distension (gaseous) Plan Continue Linzess and Dulcolax. Patient will start taking Mag citrate on as needed basis. Encouraged patient to increase fluid intake and activity to promote better bowel motility. Increase vegetables and fruits. Patient was not eating fruits and vegetables in the past. She will try to make smoothies to increase fiber. Patient will be scheduled for colonoscopy. She will return in 2-3 months to discuss colonoscopy and prep. She is agreeable to this plan and verbalizes understanding of instructions. She was given the opportunity to ask questions and all questions answered. Thank you for allowing me to participate in her care Medications: New magnesium citrate (Citrate of Magnesia oral) 150 mL PO DAILY PRN 296 mL 5RF constipation K59.00 - Constipation, unspecified Discontinued magnesium hydroxide (Milk of Magnesia) Discontinued Reason: Doctor's Order 30 mL PO DAILY PRN 355 mL 0RF constipation magnesium oxide Discontinued Reason: Doctor's Order 400 mg PO DAILY 30 caps 2RF K59.04 - Chronic idiopathic constipation Coding Level of Care Code Est Pt Level 3 (62983) Diagnoses Chronic idiopathic constipation K59.04 Constipation type: chronic idiopathic constipation Left lower quadrant abdominal pain R10.32 Abdominal location: left lower quadrant LLQ abdominal pain R10.32 Abdominal bloating R14.0 Time Spent (min) 30 Comment 20 minutes spent with patient and additional 10 minutes spent reviewing her records
[2024-03-30 15:45] VITALS: BP 111/64; PULSE 80; BMI 36.3
== END 2024-03-30 16:07 | disposition home or self-care (01) ==
PROVIDERS: PCP Family Medicine; Visit Provider Nurse Practitioner Family
DX: K59.04 Chronic idiopathic constipation (principal); R10.32 Left lower quadrant pain; R14.0 Abdominal distension (gaseous)
CPT/HCPCS: 99213

== ENCOUNTER → 2024-03-30 15:41 | Outpatient (BNVA) | payer OTHER, SELFPAY | PROVIDERS: PCP Family Medicine; Visit Provider Nurse Practitioner Family | DX: K59.04 Chronic idiopathic constipation (principal); R10.32 Left lower quadrant pain; R14.0 Abdominal distension (gaseous); Z79.899 Other long term (current) drug therapy | CPT/HCPCS: 99212 ==

== ENCOUNTER 2024-05-04 17:35 | Outpatient (REF) | payer OTHER, SELFPAY | END 2024-05-04 17:36 | disposition home or self-care (01) | LOC: HO.HHCLNP 17:35 | PROVIDERS: Visit Provider Emergency Medicine | DX: R39.9 Unspecified symptoms and signs involving the genitourinary system (principal) | CPT/HCPCS: 87086 ==

== ENCOUNTER 2024-05-04 18:55 | Emergency (ER) | payer OTHER, SELFPAY ==
--- NOTE | ~2024-05-04 | CT_ITS ---
EXAMINATION: CT ABDOMEN AND PELVIS WITHOUT CONTRAST CLINICAL INFORMATION: Reason for Exam diffuse abdominal pain and nausea, R/O colitis COMPARISON: 10/02/2023 TECHNIQUE: Multidetector volumetric imaging was performed from the superior aspect of the liver through the pubic symphysis. Sagittal and coronal reformatted images were obtained on the technologist's workstation. This CT examination was performed using dose optimization techniques as appropriate, variously including the following: *Automated exposure control *Adjustment of mA and/or kV according to patient size (this includes techniques or standardized protocols for targeted exams where dose is matched to indication/reason for exam; i.e. extremities or head) *Use of iterative reconstruction technique DLP: 733 mGy-cm FINDINGS: LUNG BASES: The visualized lung bases are unremarkable. LIVER, GALLBLADDER, AND BILIARY TREE: The liver is normal in size, shape, and attenuation. No focal hepatic lesion or biliary ductal dilatation is identified on this noncontrast exam. Gallbladder appears partially contracted, suboptimally assessed. PANCREAS: Mild fatty atrophy. SPLEEN: Unremarkable. ADRENAL GLANDS: Unremarkable. KIDNEYS AND URETERS: No hydronephrosis or obstructing calculus bilaterally. BLADDER: Mildly distended and grossly unremarkable. GASTROINTESTINAL TRACT: No evidence of bowel obstruction or significant wall thickening. The appendix is unremarkable. No free fluid or free air is seen. ABDOMINAL WALL: No significant hernia is appreciated. LYMPH NODES: No lymphadenopathy is seen, though assessment is limited in the absence of intravenous contrast. VASCULAR: Mild calcification along the aorta. PELVIC VISCERA: Unremarkable. OSSEOUS STRUCTURES: Scattered endplate osteophytes in the spine. CT/CT abdomen pelvis wo IV con IMPRESSION: No acute findings identified in the abdomen/pelvis. Electronically signed by: Mihai Wong MD 05/05/2024 01:06 AM EDT
--- NOTE | ~2024-05-04 | CT_ITS ---
EXAMINATION: CT HEAD WITHOUT IV CONTRAST CLINICAL INFORMATION: headache COMPARISON: CT head without contrast 11/11/23 TECHNIQUE: Contiguous axial imaging was performed from the skull base to vertex without intravenous contrast. Sagittal and coronal reformatted images were obtained. This CT examination was performed using dose optimization techniques as appropriate, variously including the following: * Automated exposure control * Adjustment of mA and/or kV according to patient size (this includes techniques or standardized protocols for targeted exams where dose is matched to indication/reason for exam; i.e. extremities or head) Use of iterative reconstruction technique DLP: 692 mGy-cm FINDINGS: No acute osseous or soft tissue abnormality. The mastoids are clear. Left maxillary sinus retention cyst. There is no evidence of acute intracranial hemorrhage or territorial infarction. No abnormal mass effect or midline shift is seen. Mc to white matter differentiation is well preserved. No extra-axial fluid collections are identified. No hydrocephalus. No significant volume loss. There is no abnormal attenuation within the brain parenchyma. CT/CT head/brain wo IV con IMPRESSION: No acute intracranial abnormality including hemorrhage, mass effect, hydrocephalus, or acute territorial edematous infarction. Electronically signed by: Dangelo Mosqueda MD 05/04/2024 11:07 PM EDT
[2024-05-04 19:03] VITALS: BP 111/70; PULSE 77; RESP 18; TEMP 36.8; O2SAT 99; BMI 34.3
--- NOTE | 2024-05-04 19:03 | ED_ITS ---
HPI - Abdominal Pain General Chief Complaint: Abdominal Pain Stated Complaint: Headache/dizziness and nausea Time Seen by Provider: 05/04/24 21:56 Source: patient Mode of arrival: ambulatory Limitations: no limitations History of Present Illness ED Provider: DR. Dotson HPI narrative: a 39-year-old female came in for evaluation of headache and upper abdominal pain for the past 2 weeks. Headache that has been constant for the past 2 weeks patient feels wobbly and disoriented with a headache, no runny nose, no facial pressure No fever, complaining of chills, no runny nose, no coughing, sneezing. Patient also complaining upper abdominal pain with nausea but no vomiting patient with chronic constipation last bowel movement was yesterday and was constipated with no blood in the stool. Related Data Home Medications ?Medication ?Instructions ?Recorded ?Confirmed metformin 500 mg tablet 500 mg PO BID 08/08/21 08/08/21 fluticasone propionate 50 2 spray intranasal DAILY 08/27/23 mcg/actuation nasal spray,suspension empagliflozin 10 mg-metformin ER 1 tab PO DAILY 03/30/24 1,000 mg tablet,extended release 24hr (Synjardy XR) loratadine 10 mg tablet 10 mg PO QAM 03/30/24 tirzepatide 2.5 mg/0.5 mL mg subcut 03/30/24 subcutaneous pen injector (Corie) Previous Rx's ?Medication ?Instructions ?Recorded hydrocortisone 2.5 % topical cream 1 appl MA BID-QID PRN hemorrhoids 12/17/22 with perineal applicator #30 grams (Proctosol HC) bisacodyl 5 mg tablet,delayed 10 mg (2 x 5 mg) PO BEDTIME #180 04/08/23 release (Dulcolax (bisacodyl)) tabs docusate sodium 100 mg capsule 200 mg (2 x 100 mg) PO BEDTIME 08/27/23 #180 caps ibuprofen 600 mg tablet 600 mg PO Q6H PRN pain #30 tabs 10/02/23 linaclotide 290 mcg capsule 290 mcg PO QAM #30 caps 10/20/23 (Linzess) magnesium citrate (Citrate of 150 ml PO DAILY PRN constipation 03/30/24 Magnesia oral) #296 mL amoxicillin 500 mg-potassium 1 tab PO BID #14 tabs 05/04/24 clavulanate 125 mg tablet (Augmentin) Allergies Allergy/AdvReac Type Severity Reaction Status Date / Time No Known Allergies Allergy Mild NOT Verified 05/04/24 19:05 APPLICABLE Review of Systems Review of Systems All other systems are reviewed and are negative Constitutional: Reports as per HPI and Reports no additional constitutional complaints Eyes: Reports as per HPI and Reports no additional eye complaints Reports system reviewed and no additional complaints, except as documented Cardiovascular: Reports as per HPI and Reports no additional cardiovascular complaints Respiratory: Reports as per HPI and Reports no additional respiratory complaints Gastrointestinal: Reports as per HPI and Reports no additional gastrointestinal complaints Genitourinary: Reports no additional female genitourinary complaints Musculoskeletal: Reports no additional musculoskeletal complaints Skin/Breast: Reports system reviewed and no additional complaints, except as docu Psychiatric: Reports no additional psychiatric complaints Endocrine: Reports no additional endocrine complaints Hematologic/Lymphatic: Reports no additional hematologic/lymphatic complaints Allergic/Immunologic: Reports no additional allergic/immunologic complaints Reports system reviewed and no additional complaints, except as documented and Reports Abnormal speech present [facility] Past Medical History Medical History Anal pain Constipation Hemorrhoids with complication Pelvic varices Surgical History History of hemorrhoidectomy Family History Family History Maternal Aunt Breast cancer in female Mother HTN (hypertension) Social History Social History Alcohol intake: former Patient Tobacco Use Status: Current everyday Tobacco user Tobacco use type: Cigarette Cigarettes Per Day: 5 Years Smoked: 16 Advance Directives: No Advance Directives Information Provided: Yes Do you have a plan to hurt others: No Plan Physical Exam ED Vital Signs: Vital Signs - 24 hr 05/04/24 19:03 Temperature 98.2 F Pulse Rate 77 Respiratory Rate 18 Blood Pressure 111/70 Pulse Oximetry 99 Oxygen Delivery Method Room Air BMI result Body Mass Index 34.3 Vital signs have been reviewed and appear to be correct. Blood pressure elevated. Heart rate normal. Respiratory rate normal. Temperature normal. Oxygen saturation normal. Appearance: Alert. Oriented X3. No acute distress. Head: Normal external exam. Normocephalic. Atraumatic. No Colin signs noted. No raccoon eyes noted Eyes: PERRLA. EOMI. Conjunctiva and sclera normal. Eyelids normal. ENT: TM's Normal. Pharynx normal. Uvula midline. Moist mucous membranes. No trismus noted. No drooling noted. No muffled voice noted. tenderness on percussion on bilateral frontal sinuses. Neck: Normal inspection. Neck supple. FROM. No adenopathy. Thyroid Normal. No meningeal signs. No neck mass noted. CVS: Normal heart rate and rhythm. Heart sound normal. No murmurs noted. Pulses normal throughout. Respiratory: No respiratory distress. Painless inspiration. Breath sounds normal. No wheezes/rales/rhonchi noted. Chest nontender. No accessory muscle usage noted or decreased air movement noted. Abdomen: Soft , a mild epigastric tenderness, no guarding, no rebound tenderness. Bowel sounds normal in all 4 quadrants. No distention noted. No organomegaly noted. No visible injury noted. Back: No CVA tenderness. Full range of motion noted. Skin: Skin warm and dry. Normal skin color. Normal skin turgor. No rashes/lesions/lacerations noted. Extremities: No lower extremity edema. Extremities exhibit normal range of motion. Extremities nontender. Neuro: Oriented X 3. Cranial nerve exam: II-XII are grossly intact No motor deficit. No sensory deficit. Reflexes normal. Course Course Course Narrative: This is an RME done by RENETTA Baldwin: Additional HPI, ROS, PE not included below will be deferred to primary provider. 39yo F with PMHx T2DM presents with multiple complaints including abdominal pain, headache, nausea. Denies fevers. Endorses chills. Appearance: Alert.? Oriented X3.? No acute cardiopulmonary distress distress.? Head: Normocephalic, atraumatic, no step-offs or deformities.? CVS: Pulses normal.? Respiratory: No respiratory distress.? Skin: ? Normal skin color. Neuro: Oriented X 3.? Reevaluation(s) Reevaluation #1: DR. Dotson's Progress note: Complaining of headache and abdominal pain. 1. Normal neuro exam, CT head is unremarkable, forehead pressure consider acute sinusitis will start on Augmentin. 2. Abdominal pain with unremarkable abdominal CT and labs. Patient improved with Pepcid and Zofran sublingual. Time: 03:13 Medical Decision Making Differential Diagnosis Differential Diagnoses: The differential diagnosis associated with the presentation includes ( Headache, sinusitis, intracranial bleed, hypertension, electrolyte derangement, severe anemia, UTI, .) Admission/Observation Consideration of admission/observation: Escalation of care including admission/observation considered Lab Data MDM Lab Attestation statement: I reviewed the patient's lab results. 05/04/24 19:14 05/04/24 19:14 Labs: Lab Results 05/04/24 05/04/24 Range/Units 19:14 20:02 WBC 8.8 (4.8-10.8) X10*3/uL RBC 3.95 L (4.20-5.50) X10*6/uL Hgb 12.3 (12.0-16.0) g/dl Hct 35.7 L (37.0-47.0) % MCV 90.4 (80.0-98.0) fL MCH 31.1 (27.0-33.0) pg MCHC 34.5 (31.0-35.0) g/dl RDW 13.0 (11.0-16.0) % Plt Count 347 (160-400) X10*3/uL MPV 9.1 L (9.4-12.3) fL Immature Gran % (Auto) 0.3 (0.0-0.4) % Neut % (Auto) 48.1 (45-73) % Lymph % (Auto) 42.3 H (20-40) % [place] % (Auto) 6.9 (2-11) % Eos % (Auto) 1.8 (0-4) % Baso % (Auto) 0.6 (0-2) % Lymph # (Auto) 3.7 (1.2-4.9) X10*3/uL [place] # (Auto) 0.6 (0.1-1.2) X10*3/uL Eos # (Auto) 0.2 (0.0-0.4) X10*3/uL Baso # (Auto) 0.1 (0.0-0.2) X10*3/uL Abs Immat Gran (auto) 0.03 (0.00-0.03) X10*3/uL Absolute Neuts (auto) 4.2 (2.0-8.3) x10*3/uL Absolute Nucleated RBC 0.000 (0.0-0.012) X10*3/uL Nucleated RBC % (auto) 0.0 (0.0-0.2) /100WBC Sodium 138 (135-145) mmol/L Potassium 3.7 (3.3-5.1) mmol/L Chloride 107 (96-108) mmol/L Carbon Dioxide 25 (22-29) mmol/L Anion Gap 10 L (12-20) BUN 21 H (9-16) mg/dL Creatinine 0.61 (0.5-1.4) mg/dL Estim Creat Clear Calc 146.9 Estimated GFR > 60 Random Glucose 108 (60-115) mg/dL Calcium 9.6 (8.4-10.2) mg/dL Magnesium 2.3 (1.6-2.6) mg/dL Total Bilirubin 0.4 (0.0-1.0) mg/dL AST 28 (5-31) U/L ALT 41 H (0-31) U/L Alkaline Phosphatase 72 (39-117) U/L Total Protein 7.4 (6.5-8.0) g/dL Albumin 4.2 (3.5-5.0) g/dL Lipase 28 (8-78) U/L Beta HCG, Quant < 2 mIU/mL Urine Color Yellow Urine Appearance Clear Urine pH 5.5 (5.0-9.0) Ur Specific [place] 1.010 (1.005-1.025) Urine Protein Negative (Neg-Trace) mg/dL Urine Glucose (UA) Negative (Negative) mg/dL Urine Ketones Negative (Negative) mg/dL Urine Blood Negative (Negative) Urine Nitrite Negative (Negative) Ur Leukocyte Esterase Negative (Negative) Influenza Type A (PCR) NEGATIVE (Negative) Influenza Type B (PCR) NEGATIVE (Negative) RSV RNA Qual (PCR) NEGATIVE (Negative) SARS-CoV-2 RNA (RT-PCR) NEGATIVE (Negative) Independent Interpretation I performed an independent interpretation of an: CT Scan ( head/ abdomen: No acute pathology.) Radiology Impression Discussion of test interpretation with radiology: I have reviewed the radiologist's reading. Medications Administered Discontinued Medications Generic Name Dose Route Start Last Admin Trade Name Freq PRN Reason Stop Dose Admin Amoxicillin/Clavulanate Potassium 875 mg 05/04/24 22:27 05/04/24 23:48 Amoxicillin/Potassium Clav 875 Mg Tablet PO 05/04/24 22:28 875 mg ONCE ONE Administration Famotidine 20 mg 05/04/24 22:14 05/04/24 22:27 Famotidine 20 Mg Tablet PO 05/04/24 22:15 20 mg ONCE ONE Administration Ondansetron HCl 4 mg 05/04/24 22:14 05/04/24 22:27 Ondansetron Odt 4 Mg Tab.Rapdis TRANSLINGU 05/04/24 22:15 4 mg ONCE ONE Administration Discharge Plan Discharge Clinical Impression: Acute frontal sinusitis Patient Disposition: Home, Self-Care Instructions: Sinusitis (ED) Prescriptions: New amoxicillin-pot clavulanate [Augmentin] 500-125 mg tablet 1 tab PO BID Qty: 14 0RF No Action ibuprofen 600 mg tablet 600 mg PO Q6H PRN (Reason: pain) Qty: 30 0RF metformin 500 mg tablet 500 mg PO BID hydrocortisone [Proctosol HC] 2.5 % cream with perineal applicator 1 appl MA BID-QID PRN (Reason: hemorrhoids) Qty: 30 2RF bisacodyl [Dulcolax (bisacodyl)] 5 mg tablet,delayed release (DR/EC) 10 mg PO BEDTIME Qty: 180 4RF fluticasone propionate 50 mcg/actuation spray,suspension 2 spray intranasal DAILY docusate sodium 100 mg capsule 200 mg PO BEDTIME Qty: 180 3RF Mounjaro 2.5 mg/0.5 mL pen injector subcut Synjardy XR 10-1,000 mg tablet, IR - ER, biphasic 24hr 1 tab PO DAILY loratadine 10 mg tablet 10 mg PO QAM magnesium citrate [Citrate of Magnesia] Solution 150 ml PO DAILY PRN (Reason: constipation) Qty: 296 5RF Linzess 290 mcg capsule 290 mcg PO QAM Qty: 30 4RF Referrals: Casie Angulo DO [Primary Care Provider] - Print Language: Tamazight
[2024-05-04 19:18] LABS: MANUAL DIFF FLAG NO
[2024-05-04 19:20] LABS: Basophils Absolute Auto 0.1 X10*3/uL (0.0-0.2); Basophils Percent Auto 0.6 % (0-2); Eosinophils Absolute Auto 0.2 X10*3/uL (0.0-0.4); Eosinophils Percent Auto 1.8 % (0-4); Hematocrit 35.7 % (37.0-47.0); Hemoglobin 12.3 g/dl (12.0-16.0); Imm Gran Abs Auto 0.03 X10*3/uL (0.00-0.03); Imm Gran Pct Auto 0.3 % (0.0-0.4); Lymphocytes Absolute Auto 3.7 X10*3/uL (1.2-4.9); Lymphocytes Percent Auto 42.3 % (20-40); Mean Corpuscular HGB Conc 34.5 g/dl (31.0-35.0); Mean Corpuscular Hemoglobin 31.1 pg (27.0-33.0); Mean Corpuscular Volume 90.4 fL (80.0-98.0); Mean Platelet Volume 9.1 fL (9.4-12.3); Monocytes Absolute Auto 0.6 X10*3/uL (0.1-1.2); Monocytes Percent Auto 6.9 % (2-11); Neutrophils Absolute Auto 4.2 x10*3/uL (2.0-8.3); Neutrophils Percent Auto 48.1 % (45-73); Platelet Count 347 X10*3/uL (160-400); Red Blood Count 3.95 X10*6/uL (4.20-5.50); White Blood Count 8.8 X10*3/uL (4.8-10.8)
[2024-05-04 19:45] LABS: Alanine Aminotransferase 41 U/L (0-31); Albumin Level 4.2 g/dL (3.5-5.0); Alkaline Phosphatase 72 U/L (39-117); Anion Gap 10 (12-20); Aspartate Amino Transferase 28 U/L (5-31); Bilirubin Total 0.4 mg/dL (0.0-1.0); Blood Urea Nitrogen 21 mg/dL (9-16); Calcium 9.6 mg/dL (8.4-10.2); Carbon Dioxide 25 mmol/L (22-29); Chloride 107 mmol/L (96-108); Creatinine Clr Calc Pharmacy 146.9; Estimated Glomerular Filt Rate > 60; Glucose Random 108 mg/dL (60-115); Lipase 28 U/L (8-78); Magnesium 2.3 mg/dL (1.6-2.6); Potassium 3.7 mmol/L (3.3-5.1); Sodium 138 mmol/L (135-145); Total Protein 7.4 g/dL (6.5-8.0)
[2024-05-04 19:50] LABS: HCG Quantitative < 2 mIU/mL
[2024-05-04 20:03] LABS: Influenza A PCR NEGATIVE (Negative); Influenza B PCR NEGATIVE (Negative); Resp Syncy Virus RNA Qual PCR NEGATIVE (Negative); SARS COV2 PCR INHOUSE NEGATIVE (Negative)
[2024-05-04 20:08] LABS: Appearance Urine Clear; Color Urine Yellow; Glucose Urine UA Negative (Negative); Leukocyte Esterase Urine Negative (Negative); Nitrite Urine Negative (Negative); PH 5.5 (5.0-9.0); Urine Blood Negative (Negative); Urine Ketones Negative (Negative); Urine Protein Negative (Neg-Trace)
[2024-05-04] MEDS: Famotidine 20 MG TABLET PO (22:27)
[2024-05-04] MEDS: Ondansetron ODT 4 MG TAB.RAPDIS TRANSLINGU (22:27)
[2024-05-04] MEDS: Amoxicillin/Potassium Clav 875 MG TABLET PO (23:48)
[2024-05-05 03:28] VITALS: BP 121/68; PULSE 72; RESP 16; TEMP 36.7; O2SAT 98
[2024-05-05 03:29] VITALS: BP 121/68; PULSE 72; RESP 16; TEMP 36.7; O2SAT 98
== END 2024-05-05 03:30 | disposition home or self-care (01) ==
PROVIDERS: Physician Assistant; Emergency Provider Emergency Medicine; PCP Family Medicine
DX: J01.10 Acute frontal sinusitis, unspecified (principal); R51.9 Headache, unspecified; R10.10 Upper abdominal pain, unspecified; Z03.818 Encounter for observation for suspected exposure to other biological agents ruled out; E11.9 Type 2 diabetes mellitus without complications; Z79.84 Long term (current) use of oral hypoglycemic drugs; Z79.85 Long-term (current) use of injectable non-insulin antidiabetic drugs; F17.210 Nicotine dependence, cigarettes, uncomplicated
CPT/HCPCS: 0241U; 70450; 74176; 80053; 81003; 83690; 83735; 84702; 85025; 99284

== ENCOUNTER 2024-06-17 08:07 | Emergency (ER) | payer OTHER, SELFPAY ==
[2024-06-17 08:13] VITALS: BP 125/73; PULSE 93; RESP 18; TEMP 36.2; O2SAT 96; BMI 33.7
[2024-06-17 08:26] VITALS: BP 102/69; PULSE 86; RESP 16; TEMP 36.8; O2SAT 95
--- NOTE | 2024-06-17 08:36 | PC.NURSE ---
Pt comes to ED today for c/o LUE and LLE numbness/tingling/pain. Reports pain is 7/10 and started about 6 days ago. Denies any recent injury or trauma. Denies Hx of similar incident. 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 VSS, A&Ox3, afebrile. Pt reports DM, on last taken on Friday.
--- NOTE | 2024-06-17 08:52 | ED_ITS ---
HPI - General Adult General Chief complaint: General Medical Stated complaint: Numbness/pain L side of body Time Seen by Provider: 06/17/24 08:29 Source: patient and old records reviewed Mode of arrival: ambulatory Limitations: no limitations History of Present Illness ED Provider: RENAE PEÑALOZA narrative: 39 yo female with PMH of DM2 here with c/o 6 days of L sided body aches without known precipitating event or trauma she then notes URI symptoms cough, sore throat, body aches since Friday had negative rapid covid/flu/strep at urgent care yesterday. 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 She notes she has tried motrin without relief. She has never had pain on this side of her body before. She does not report numbness to me on exam or history just reports cramping pain. No n/v/d. Her left eye when she woke up this AM was also red. Pain goes from head down to L toe complaint: L sided body pain Onset (ago): day(s) (4) Location: left, upper extremity and lower extremity Radiation: non-radiation Severity: moderate Quality: aching Pain Consistency: constant Relieving factors: immobilization Exacerbating factors: movement Associated symptoms: denies other symptoms Treatments prior to arrival: none Related Data Home Medications ?Medication ?Instructions ?Recorded ?Confirmed metformin 500 mg tablet 500 mg PO BID 08/08/21 08/08/21 fluticasone propionate 50 2 spray intranasal DAILY 08/27/23 mcg/actuation nasal spray,suspension empagliflozin 10 mg-metformin ER 1 tab PO DAILY 03/30/24 1,000 mg tablet,extended release 24hr (Synjardy XR) loratadine 10 mg tablet 10 mg PO QAM 03/30/24 tirzepatide 2.5 mg/0.5 mL mg subcut 03/30/24 subcutaneous pen injector (Mounjaro) Previous Rx's ?Medication ?Instructions ?Recorded hydrocortisone 2.5 % topical cream 1 appl MA BID-QID PRN hemorrhoids 12/17/22 with perineal applicator #30 grams (Proctosol HC) bisacodyl 5 mg tablet,delayed 10 mg (2 x 5 mg) PO BEDTIME #180 04/08/23 release (Dulcolax (bisacodyl)) tabs docusate sodium 100 mg capsule 200 mg (2 x 100 mg) PO BEDTIME 08/27/23 #180 caps ibuprofen 600 mg tablet 600 mg PO Q6H PRN pain #30 tabs 10/02/23 linaclotide 290 mcg capsule 290 mcg PO QAM #30 caps 10/20/23 (Linzess) magnesium citrate (Citrate of 150 ml PO DAILY PRN constipation 03/30/24 Magnesia oral) #296 mL amoxicillin 500 mg-potassium 1 tab PO BID #14 tabs 05/04/24 clavulanate 125 mg tablet (Augmentin) cyclobenzaprine 10 mg tablet 10 mg PO TID PRN muscle spasm #20 06/17/24 tabs Allergies Allergy/AdvReac Type Severity Reaction Status Date / Time No Known Allergies Allergy Mild NOT Verified 06/17/24 08:16 APPLICABLE Review of Systems 2 Review of Systems: Constitutional : No Fever, No Chills, pos Fatigue ENT/Mouth : pos sore throat, pos Rhinorrhea Eyes: No Eye Pain, No Swelling, No Redness Cardiovascular : No Chest Pain, No SOB, No Dyspnea on Exertion Respiratory : pos Cough, No Sputum Gastrointestinal : No Nausea, No Vomiting, No Diarrhea, No abdominal Pain Genitourinary : No Dysuria, No Urinary Frequency, No Hematuria, Musculoskeletal : pos joint pain, pos Myalgias, No Joint Swelling Skin : No Skin Lesions, No rash Neuro : No Weakness, No Numbness, No Dizziness, no Headache All other systems reviewed and are negative [facility] Past Medical History Attestation statement: The following information was validated with the patient. Source: old records reviewed Medical History Anal pain Constipation Hemorrhoids with complication Pelvic varices Surgical History History of hemorrhoidectomy Family History Family History Maternal Aunt Breast cancer in female Mother HTN (hypertension) Social History Social History Alcohol intake: former Patient Tobacco Use Status: Current everyday Tobacco user Tobacco use type: Cigarette Cigarettes Per Day: 5 Years Smoked: 16 Smoked in Last 30 Days: Yes Use of substances other than those prescribed or required for medical reasons: No Advance Directives: No Advance Directives Information Provided: Yes Do you have a plan to hurt others: No Plan Patient : No Physical Exam ED Vital Signs: Vital Signs - 24 hr 06/17/24 08:13 06/17/24 08:26 Temperature 97.1 F 98.3 F Pulse Rate 93 86 Respiratory Rate 18 16 Blood Pressure 125/73 102/69 Pulse Oximetry 96 95 Oxygen Delivery Method Room Air Room Air BMI result Body Mass Index 33.7 Appearance: Alert. Oriented X3. No acute distress. Eyes: Pupils equal, round and reactive to light. ENT: Pharynx normal. Neck: Normal inspection. Neck supple. CVS: Normal heart rate and rhythm. Pulses normal. Respiratory: No respiratory distress. Breath sounds normal. Abdomen: Soft and nontender. Skin: Skin warm and dry. Normal skin color. Normal skin turgor. Extremities: No lower extremity edema. has normal sensation throughout diffuse pain on LUE and LLE no swelling noted on exam distal pulse 2+ radial, DP/PT, BCR, ext warm to touch, no rash noted Neuro: Oriented X 3. No motor deficit. No sensory deficit. Medications Administered Discontinued Medications Generic Name Dose Route Start Last Admin Trade Name Freq PRN Reason Stop Dose Admin Acetaminophen 975 mg 06/17/24 08:45 06/17/24 09:01 Acetaminophen 325 Mg Tablet PO 06/17/24 08:46 975 mg ONCE ONE Administration Cyclobenzaprine HCl 10 mg 06/17/24 08:45 06/17/24 09:02 Cyclobenzaprine Hcl 10 Mg Tablet PO 06/17/24 08:46 10 mg ONCE ONE Administration Ketorolac Tromethamine 30 mg 06/17/24 08:45 06/17/24 09:02 Ketorolac Tromethamine 30 Mg/Ml Vial IM 06/17/24 08:46 30 mg ONCE ONE Administration Medical Decision Making Medical Decision Making MDM Narrative: 39 yo female with PMH of DM2 here with c/o L sided body pain she is NV intact good pulses no signs of infection. She has had recent URI at this time will need basic labs, lytes, viral panel. Her symptoms are pain not neuro deficit I do not suspect stroke or dissection. She will get pain control as well. Suspect possible viral induced pain. Has mild L red eye but no vision changes likely due to viral syndrome Differential Diagnosis Differential Diagnoses: The differential diagnosis associated with the presentation includes myalgia, lyte abnormality, viral syndrome Admission/Observation Consideration of admission/observation: Escalation of care including admission/observation considered feels much better labs reassuring stable for DC Lab Data MDM Lab Attestation statement: I reviewed the patient's lab results. 06/17/24 09:28 06/17/24 09:28 Labs: Lab Results 06/17/24 Range/Units 09:28 WBC 10.5 (4.8-10.8) X10*3/uL RBC 3.95 L (4.20-5.50) X10*6/uL Hgb 12.3 (12.0-16.0) g/dl Hct 35.7 L (37.0-47.0) % MCV 90.4 (80.0-98.0) fL MCH 31.1 (27.0-33.0) pg MCHC 34.5 (31.0-35.0) g/dl RDW 12.8 (11.0-16.0) % Plt Count 330 (160-400) X10*3/uL MPV 8.8 L (9.4-12.3) fL Immature Gran % (Auto) 0.3 (0.0-0.4) % Neut % (Auto) 71.8 (45-73) % Lymph % (Auto) 20.5 (20-40) % [place] % (Auto) 6.2 (2-11) % Eos % (Auto) 0.8 (0-4) % Baso % (Auto) 0.4 (0-2) % Lymph # (Auto) 2.2 (1.2-4.9) X10*3/uL [place] # (Auto) 0.7 (0.1-1.2) X10*3/uL Eos # (Auto) 0.1 (0.0-0.4) X10*3/uL Baso # (Auto) 0.0 (0.0-0.2) X10*3/uL Abs Immat Gran (auto) 0.03 (0.00-0.03) X10*3/uL Absolute Neuts (auto) 7.6 (2.0-8.3) x10*3/uL Absolute Nucleated RBC 0.000 (0.0-0.012) X10*3/uL Nucleated RBC % (auto) 0.0 (0.0-0.2) /100WBC Sodium 138 (135-145) mmol/L Potassium 4.2 (3.3-5.1) mmol/L Chloride 107 (96-108) mmol/L Carbon Dioxide 27 (22-29) mmol/L Anion Gap 8 L (12-20) BUN 10 (9-16) mg/dL Creatinine 0.65 (0.5-1.4) mg/dL Estim Creat Clear Calc 136.6 Estimated GFR > 60 Random Glucose 118 H (60-115) mg/dL Calcium 9.0 D (8.4-10.2) mg/dL Magnesium 2.1 (1.6-2.6) mg/dL Total Bilirubin 0.5 (0.0-1.0) mg/dL Direct Bilirubin 0.2 (0.0-0.5) mg/dL AST 25 (5-31) U/L ALT 26 (0-31) U/L Alkaline Phosphatase 73 (39-117) U/L Total Creatine Kinase 60 (26-140) U/L Total Protein 6.9 (6.5-8.0) g/dL Albumin 3.9 (3.5-5.0) g/dL Influenza Type A (PCR) NEGATIVE (Negative) Influenza Type B (PCR) NEGATIVE (Negative) RSV RNA Qual (PCR) NEGATIVE (Negative) SARS-CoV-2 RNA (RT-PCR) NEGATIVE (Negative) External Record Review External record reviewed: Outpatient record Prescription Management I considered prescription management with: Other Discharge Plan Discharge Clinical Impression: Myalgia, Acute viral syndrome Patient Disposition: Home, Self-Care Instructions: Viral Syndrome (ED), Musculoskeletal Pain (ED) Additional Instructions: labs reassuring negative for covid flu and rsv rest and stay hydrated return for any worsening symptoms or concerns take tylenol or motrin in addition to the muscle relaxer Prescriptions: New cyclobenzaprine 10 mg tablet 10 mg PO TID PRN (Reason: muscle spasm) Qty: 20 0RF No Action ibuprofen 600 mg tablet 600 mg PO Q6H PRN (Reason: pain) Qty: 30 0RF amoxicillin-pot clavulanate [Augmentin] 500-125 mg tablet 1 tab PO BID Qty: 14 0RF metformin 500 mg tablet 500 mg PO BID hydrocortisone [Proctosol HC] 2.5 % cream with perineal applicator 1 appl MA BID-QID PRN (Reason: hemorrhoids) Qty: 30 2RF bisacodyl [Dulcolax (bisacodyl)] 5 mg tablet,delayed release (DR/EC) 10 mg PO BEDTIME Qty: 180 4RF fluticasone propionate 50 mcg/actuation spray,suspension 2 spray intranasal DAILY docusate sodium 100 mg capsule 200 mg PO BEDTIME Qty: 180 3RF Mounjaro 2.5 mg/0.5 mL pen injector subcut Synjardy XR 10-1,000 mg tablet, IR - ER, biphasic 24hr 1 tab PO DAILY loratadine 10 mg tablet 10 mg PO QAM magnesium citrate [Citrate of Magnesia] Solution 150 ml PO DAILY PRN (Reason: constipation) Qty: 296 5RF Linzess 290 mcg capsule 290 mcg PO QAM Qty: 30 4RF Stand Alone Forms: Work/School Release Print Language: Chinese
[2024-06-17] MEDS: Acetaminophen 325 MG TABLET 975 MG PO (09:01)
[2024-06-17] MEDS: Cyclobenzaprine HCl 10 MG TABLET PO (09:02)
[2024-06-17] MEDS: Ketorolac Tromethamine 30 MG/ML VIAL IM (09:02)
[2024-06-17 09:35] LABS: MANUAL DIFF FLAG NO
[2024-06-17 09:36] LABS: Basophils Percent Auto 0.4 % (0-2); Eosinophils Absolute Auto 0.1 X10*3/uL (0.0-0.4); Eosinophils Percent Auto 0.8 % (0-4); Hematocrit 35.7 % (37.0-47.0); Hemoglobin 12.3 g/dl (12.0-16.0); Imm Gran Abs Auto 0.03 X10*3/uL (0.00-0.03); Imm Gran Pct Auto 0.3 % (0.0-0.4); Lymphocytes Absolute Auto 2.2 X10*3/uL (1.2-4.9); Lymphocytes Percent Auto 20.5 % (20-40); Mean Corpuscular HGB Conc 34.5 g/dl (31.0-35.0); Mean Corpuscular Hemoglobin 31.1 pg (27.0-33.0); Mean Corpuscular Volume 90.4 fL (80.0-98.0); Mean Platelet Volume 8.8 fL (9.4-12.3); Monocytes Absolute Auto 0.7 X10*3/uL (0.1-1.2); Monocytes Percent Auto 6.2 % (2-11); Neutrophils Absolute Auto 7.6 x10*3/uL (2.0-8.3); Neutrophils Percent Auto 71.8 % (45-73); Platelet Count 330 X10*3/uL (160-400); Red Blood Count 3.95 X10*6/uL (4.20-5.50); Red Cell Distribution Width 12.8 % (11.0-16.0); White Blood Count 10.5 X10*3/uL (4.8-10.8)
[2024-06-17 10:03] LABS: Alanine Aminotransferase 26 U/L (0-31); Albumin Level 3.9 g/dL (3.5-5.0); Alkaline Phosphatase 73 U/L (39-117); Anion Gap 8 (12-20); Aspartate Amino Transferase 25 U/L (5-31); Bilirubin Direct 0.2 mg/dL (0.0-0.5); Bilirubin Total 0.5 mg/dL (0.0-1.0); Blood Urea Nitrogen 10 mg/dL (9-16); Carbon Dioxide 27 mmol/L (22-29); Chloride 107 mmol/L (96-108); Creatinine Clr Calc Pharmacy 136.6; Estimated Glomerular Filt Rate > 60; Glucose Random 118 mg/dL (60-115); Magnesium 2.1 mg/dL (1.6-2.6); Potassium 4.2 mmol/L (3.3-5.1); Sodium 138 mmol/L (135-145); Total Protein 6.9 g/dL (6.5-8.0)
[2024-06-17 10:13] LABS: Influenza A PCR NEGATIVE (Negative); Influenza B PCR NEGATIVE (Negative); Resp Syncy Virus RNA Qual PCR NEGATIVE (Negative); SARS COV2 PCR INHOUSE NEGATIVE (Negative)
[2024-06-17 11:02] VITALS: BP 104/67; PULSE 73; RESP 16; TEMP 36.8; O2SAT 97
[2024-06-17 11:03] VITALS: BP 104/67; PULSE 73; RESP 16; TEMP 36.8; O2SAT 97
== END 2024-06-17 11:03 | disposition home or self-care (01) ==
PROVIDERS: Emergency Provider Emergency Medicine; PCP Family Medicine
DX: M79.10 Myalgia, unspecified site (principal); B34.9 Viral infection, unspecified; Z03.818 Encounter for observation for suspected exposure to other biological agents ruled out; Z79.899 Other long term (current) drug therapy
CPT/HCPCS: 0241U; 80048; 80076; 82550; 83735; 85025; 96372; 99284; J1885

== ENCOUNTER 2024-06-18 10:12 | Outpatient (AMB) | payer OTHER, SELFPAY ==
--- NOTE | 2024-06-18 10:22 | A.OFFVIS_ITS ---
Vital Signs 06/18/24 10:23 Height 5 ft 7 in Weight 216 lb 0.848 oz BMI 33.8 BP 116/72 Blood Pressure Location Lt brachial Position Sitting Pulse 76 Pulse Source Pulse Oximeter Pulse Oximetry (%) 99 Oxygen Delivery Method Room Air Intake Visit Reasons: 10 week follow up Intake Note: Relevant Flags or Indicators ? Requires Commissioned Fire Officer? Kamilah Casie presents in office today for a scheduled 3 mos FUV. Pt is also supposed to discuss colonoscopy with provider today. CC; Since last visit; labs ordered ? 04/2024. Rx ordered ? yes; Milk of Mag. Diagnostics/images ordered ? Abdomen CT 04/2024. No previous hx of colo. Pt has a procedure scheduled for July 2024. Relevant GI Sx as reported per pt? Nausea ? Reflux ? Fecal abnormalities o?? Constipation o?? Diarrhea ? Abdominal Pain o?? Upper B/L ? Bloating ? Hx of any recent surgeries? None Commissioned Fire Officer Required: No Allergies No Known Allergies Allergy (Mild, Verified 06/18/24 10:24) NOT APPLICABLE HPI HPI 10 week follow up: Details: LAST VISIT: Constipation Abdominal pain LLQ abdominal pain Abdominal bloating Plan Continue Linzess and Dulcolax. Patient will start taking Mag citrate on as needed basis. Encouraged patient to increase fluid intake and activity to promote better bowel motility. Increase vegetables and fruits. Patient was not eating fruits and vegetables in the past. She will try to make smoothies to increase fiber. Patient will be scheduled for colonoscopy. She will return in 2- 3 months to discuss colonoscopy and prep. She is agreeable to this plan and verbalizes understanding of instructions. She was given the opportunity to ask questions and all questions answered. ? Thank you for allowing me to participate in her care Medications New magnesium citrate (Citrate of Magnesia oral) 150 mL PO DAILY PRN 296 mL 5RF constipation K59.00 Discontinued magnesium hydroxide (Milk of Magnesia) Discontinued Reason: Doctor's Order 30 mL PO DAILY PRN 355 mL 0RF constipation magnesium oxide Discontinued Reason: Doctor's Order 400 mg PO DAILY 30 caps 2RF K59.04 TODAY'S VISIT: Patient is here today for follow-up and to discuss CT scan results. Patient had normal study. Patient reports to be feeling better. Currently she is taking Linzess in the morning and Dulcolax in the evening. Patient reports that she is moving her bowels better now. Patient states that she started going to the gym and she feels like that helps as well. Patient thinks she drinks enough water. Denies any dyspepsia, dysphagia or odynophagia. Occasional blood after bowel movement, however patient reports that she feels like her hemorrhoids are back. Patient states that she made an appointment with Dr. Rainey for Friday. Patient has colonoscopy scheduled for July in follow-up in the office for August. Will go over prep again today [facility] Medical History Anal pain Constipation Hemorrhoids with complication Pelvic varices Surgical History History of hemorrhoidectomy Family History Maternal Aunt Breast cancer in female Mother HTN (hypertension) Social History Alcohol intake: former Patient Tobacco Use Status: Current everyday Tobacco user Tobacco use type: Cigarette Cigarettes Per Day: 5 Years Smoked: 16 Female Reproductive History Menstrual Age of Menarche: 10 Review of Systems Const Denies weight gain and Denies weight loss ENT Reports no additional complaints, Denies dysphagia and Denies odynophagia Card Reports no additional complaints Resp Reports no additional complaints GI Denies abdominal pain, Denies belching, Denies melena, Reports bloating, Reports hematochezia (Reports hemorrhoids), Denies change in bowel habits, Reports constipation, Denies dysphagia, Denies excessive flatus, Denies dyspepsia, Denies heartburn, Denies diarrhea, Denies loose stools, Denies nausea, Denies odynophagia and Denies vomiting Reports no additional complaints Musc Reports no additional complaints Neuro Reports no additional complaints Psych Reports no additional complaints Endo Reports no additional complaints Physical Exam Vital Signs: Last Vital Signs Pulse 76 06/18/24 10:23 BP 116/72 06/18/24 10:23 Pulse Ox 99 06/18/24 10:23 Oxygen Delivery Method Room Air 06/18/24 10:23 BMI result Body Mass Index 33.8 Const General: healthy appearing and no acute distress Nutritional Appearance: obese Orientation/consciousness: patient oriented x3 Resp Effort & Inspection: normal respiratory effort, able to speak in complete sentences, no tracheal deviation and symmetric chest movement Auscultation: clear to auscultation bilaterally Cardio Rate: regular rate GI Inspection: Yes normal to inspection, No distended and Yes obesity Palpation (GI): Soft to palpation, not firm, nontender and No hepatosplenomegaly present Auscultation: normal bowel sounds General: Yes no CVA tenderness Back/Spine/Pelvis Back: no CVA tenderness Skin General skin exam: elasticity normal, turgor normal and dry skin Neuro General: patient oriented x3 Psych Appearance: grossly normal Mental Status: mental status grossly normal Results Reviewed Results Reviewed: CT OF ABDOMEN AND PELVIS FINDINGS: LUNG BASES: The visualized lung bases are unremarkable. LIVER, GALLBLADDER, AND BILIARY TREE: The liver is normal in size, shape, and attenuation. No focal hepatic lesion or biliary ductal dilatation is identified on this noncontrast exam. Gallbladder appears partially contracted, suboptimally assessed. PANCREAS: Mild fatty atrophy. SPLEEN: Unremarkable. ADRENAL GLANDS: Unremarkable. KIDNEYS AND URETERS: No hydronephrosis or obstructing calculus bilaterally. BLADDER: Mildly distended and grossly unremarkable. GASTROINTESTINAL TRACT: No evidence of bowel obstruction or significant wall thickening. The appendix is unremarkable. No free fluid or free air is seen. ABDOMINAL WALL: No significant hernia is appreciated. LYMPH NODES: No lymphadenopathy is seen, though assessment is limited in the absence of intravenous contrast. VASCULAR: Mild calcification along the aorta. PELVIC VISCERA: Unremarkable. OSSEOUS STRUCTURES: Scattered endplate osteophytes in the spine. CT/CT abdomen pelvis wo IV con IMPRESSION: No acute findings identified in the abdomen/pelvis. Yes she is on on Assessment & Plan Assessment & Plan (1) Constipation: Code(s): K59.00 - Constipation, unspecified Category: Medical Qualifiers: Constipation type: chronic idiopathic constipation Qualified Code(s): K59.04 - Chronic idiopathic constipation (2) Hemorrhoids with complication: Code(s): K64.8 - Other hemorrhoids Category: Medical (3) Rectal bleed: Code(s): K62.5 - Hemorrhage of anus and rectum Plan Discussed with patient CT scan results. Patient had normal study. Script for Proctosol send. Patient will start taking stool softener. Increase fluid intake and activity to promote better bowel motility. Patient has a colonoscopy scheduled for July. What to expect before during and after procedure discussed with patient. Stressed the importance of good bowel prep and clear liquid diet day before procedure. I will see her after the procedure, sooner on as needed basis. She is agreeable to this plan and verbalizes understanding of instructions. She was given the opportunity to ask questions and all questions answered. Thank you for allowing me to participate in her care Medications: New polyethylene glycol 3350 (Miralax) As directed by gastroenterology department at [facility] 238 gra ms PO ONCE 238 grams 0RF Z12.11 - Encounter for screening for malignant neoplasm of colon Refilled docusate sodium 200 mg (2 x 100 mg) PO BEDTIME 180 caps 3RF K59.00 - Constipation, unspecified bisacodyl (Dulcolax (bisacodyl)) 10 mg (2 x 5 mg) PO BEDTIME 180 tabs 4RF hydrocortisone 2.5% (Proctosol HC) 1 appl [place] BID-QID PRN 30 grams 2RF hemorrhoids K64.9 - Unspecified hemorrhoids Coding Level of Care Code Est Pt Level 3 (59722) Diagnoses Chronic idiopathic constipation K59.04 Constipation type: chronic idiopathic constipation Hemorrhoids with complication K64.8 Rectal bleed K62.5 Time Spent (min) 25 Comment 15 minutes spent with patient and additional 10 minutes spent reviewing her records
[2024-06-18 10:23] VITALS: BP 116/72; PULSE 76; O2SAT 99; BMI 33.8
== END 2024-06-18 11:25 | disposition home or self-care (01) ==
PROVIDERS: PCP Family Medicine; Visit Provider Nurse Practitioner Family
DX: K59.04 Chronic idiopathic constipation (principal); K64.8 Other hemorrhoids; K62.5 Hemorrhage of anus and rectum
CPT/HCPCS: 99213

== ENCOUNTER → 2024-06-18 10:12 | Outpatient (BNVA) | payer OTHER, SELFPAY | PROVIDERS: PCP Family Medicine; Visit Provider Nurse Practitioner Family | DX: K59.04 Chronic idiopathic constipation (principal); K64.8 Other hemorrhoids; K62.5 Hemorrhage of anus and rectum | CPT/HCPCS: 99212 ==

== ENCOUNTER 2024-06-21 10:50 | Outpatient (AMB) | payer OTHER, SELFPAY ==
--- NOTE | 2024-06-21 10:52 | A.OFFVIS_ITS ---
Vital Signs 06/21/24 10:58 Height 5 ft 7 in Weight 216 lb 0.848 oz BMI 33.8 Intake Visit Reasons: rectal pain Intake Note: This patient presents for an assessment for rectal pain. Pt c/o; reports rectal pain, reports no bleeding, reports she thinks this pain can be her hemorrhoids. Cruise Coordinator Required: No Accompanied by: Self / Same As Patient Allergies No Known Allergies Allergy (Mild, Verified 06/21/24 10:59) NOT APPLICABLE Medication List - Last Reconciled 06/21/24 by Tremaine Rainey MD bisacodyl (Dulcolax (bisacodyl)) 10 mg (2 x 5 mg) PO BEDTIME cholecalciferol (vitamin D3) 50 mcg PO DAILY cyclobenzaprine 10 mg PO TID PRN docusate sodium 200 mg (2 x 100 mg) PO BEDTIME empagliflozin-metformin 10-1,000 mg ER (Synjardy XR) 1 tab PO DAILY fluticasone propionate 50 mcg/actuation 2 sprays intranasal DAILY hydrocortisone 2.5% (Proctosol HC) 1 appl [place] BID-QID PRN ibuprofen 600 mg PO Q6H PRN lidocaine 5% 1 patch topical DAILY linaclotide (Linzess) 290 mcg PO QAM loratadine 10 mg PO QAM magnesium citrate (Citrate of Magnesia oral) 150 mL PO DAILY PRN metformin 500 mg PO BID polyethylene glycol 3350 (Miralax) 238 grams PO ONCE psyllium seed (sugar) (Metamucil (sugar) oral powder) 1 tbsp PO BID tirzepatide (Mounjaro) mg subcut HPI HPI rectal pain: Details: [age] year old female here for hemorrhoid issues. She describes periodic p ain with her hemorrhoids. She had undergone hemorrhoidectomy in 2020. She does have a history of severe and chronic constipation. She says she has pain with her hemorrhoids on and off with bowel movements. She denies seeing blood per rectum. She does not feel that her constipation is well controlled. [facility] Medical History Anal pain Constipation Hemorrhoids with complication Pelvic varices Surgical History History of hemorrhoidectomy Family History Maternal Aunt Breast cancer in female Mother HTN (hypertension) Social History Alcohol intake: former Patient Tobacco Use Status: Current everyday Tobacco user Tobacco use type: Cigarette Cigarettes Per Day: 5 Years Smoked: 16 Female Reproductive History Menstrual Age of Menarche: 10 Review of Systems Const Denies chills and Denies fever(s) Card Denies chest pain, Denies dyspnea and Denies dyspnea on exertion Resp Denies cough, Denies dyspnea and Denies dyspnea on exertion GI Denies hematochezia, Denies change in bowel habits and Reports constipation Denies hematuria Musc Denies back pain and Denies limited range of motion Neuro Denies focal weakness and Denies convulsions Psych Denies depression and Denies mood swings Physical Exam Vital Signs: BMI result Body Mass Index 33.8 Const General: comfortable and no acute distress Resp Effort & Inspection: normal respiratory effort Cardio Rate: regular rate GI Other: Rectal exam shows small external hemorrhoids on both the left and right side Palpation (GI): Soft to palpation, not firm, nontender and no guarding Office Procedures Anoscopy She was in serge-knife position. The anoscope was gently inserted. A full examination of the anal canal was done. She did have a mix of internal and external hemorrhoids, small to moderate-sized, with no bleeding or inflammation or thrombosis. There were no lesions seen. There was no fissure or ulceration. There was no induration on digital exam. [id number] Assessment & Plan Assessment & Plan (1) Hemorrhoids with complication: Code(s): K64.8 - Other hemorrhoids Category: Medical Plan: She has mixed internal and external hemorrhoids. She describes episodes of pain with her hemorrhoids. She has a history of hemorrhoidectomy in 2020. She has a long history of chronic constipation as well. I explained to her that symptoms of hemorrhoid issues may be better controlled with control of her constipation. I will start her on a regimen of Colace b.i.d. and Metamucil b.i.d.. I will see her again in the office in about 2-3 months to see how she is doing. Medications: New psyllium seed (sugar) (Metamucil (sugar) oral powder) 1 tbsp PO BID 1,254 grams 2RF Coding Level of Care Code New Pt Level 3 (89929) Diagnoses Hemorrhoids with complication K64.8 CPT Codes Details - CPT: 57507-Ppgvttib ([id number])
[2024-06-21 10:58] VITALS: BMI 33.8
== END 2024-06-21 11:50 | disposition home or self-care (01) ==
PROVIDERS: PCP Family Medicine; Visit Provider Surgery
DX: K64.8 Other hemorrhoids (principal)
CPT/HCPCS: 46600; 99203

== ENCOUNTER → 2024-06-21 10:50 | Outpatient (BNVA) | payer OTHER, SELFPAY | PROVIDERS: PCP Family Medicine; Visit Provider Surgery | DX: K64.8 Other hemorrhoids (principal) | CPT/HCPCS: 46600; 99202 ==

== ENCOUNTER 2024-08-12 07:56 | Day surgery (SDC) | payer OTHER, SELFPAY ==
[2024-08-10 09:29] VITALS: BMI 33.8
--- NOTE | 2024-08-12 08:49 | MHC.SHP ---
Pre-Procedural Eval Section A - 24 Hr Update-Section A only Date of Service: 08/12/24 Section B - Complete if H&P > 30 days Chief Complaint: Left lower quadrant pain Details of Present Illness: Constipation Hemorrhoids with complication Pelvic varices Family History Maternal Aunt Breast cancer in female Mother HTN (hypertension) Present Medications: see Short Stay Collaborative assessment Allergies: Allergies Allergy/AdvReac Type Severity Reaction Status Date / Time No Known Allergies Allergy Mild NOT Verified 08/12/24 08:45 APPLICABLE Review of Systems Review of Systems Comment: Ten point ROS negative Exam Exam Comment: Gen appear: No acute distress HEENT: no icterus Chest: No overt resp distress Abd: soft, nontender, nondistended Psych: Stable affect, answering questions appropriately Neuro: A/Ox3 noted to move all extremities spontaneously Ext: no peripheral edema Plan Diagnosis/Plan: Unchanged I have reviewed the history and physical and performed a pertinent physical examination on my patient. No changes have occurred unless specified. Time Spent With Patient Time: Total time managing care of this patient today ____ minutes.
--- NOTE | 2024-08-12 08:50 | HO.ANESPROP2 ---
Documented by User: Radha Mathew NP 08/11/24 08:17 HPI - Anesthesia Eval Consult details Narrative: 39yo F for Colonoscopy Anesthesia Pre-Procedure Meds Is the patient on any of the following meds?: GLP1/DPP4 PMFSH Active Problems Active Problems: All Active Problems BMI 35.0-35.9,adult (Acute) Obesity (Acute) Type 2 diabetes mellitus with unspecified complications (Acute) Morbid obesity (Acute) Precordial chest pain (Acute) Surveillance for control, oral contraceptives (Acute) Dysuria (Acute) Yeast dermatitis (Acute) Well woman exam with routine gynecological exam (Acute) control counseling (Acute) Vaginal discharge (Acute) Anal pain (Acute) Constipation (Acute) Hemorrhoids with complication (Acute) Pelvic varices (Acute) Past Medical History Medical History (Updated 08/10/24 @ 09:28 by Melody Menjivar RN) Diabetes Anal pain Constipation Hemorrhoids with complication Pelvic varices Family History Family History Maternal Aunt Breast cancer in female Mother HTN (hypertension) Family history of problems with anesthesia: No Surgical History Surgical History History of hemorrhoidectomy History of Problems with Anesthesia: No Social History Social History Alcohol intake: former Patient Tobacco Use Status: Current everyday Tobacco user Tobacco use type: Cigarette Cigarettes Per Day: 5 Years Smoked: 16 Advance Directives: No Advance Directives Information Provided: Yes Meds Allergies Allergy/AdvReac Type Severity Reaction Status Date / Time No Known Allergies Allergy Mild NOT Verified 08/12/24 08:45 APPLICABLE Home Medications ?Medication ?Instructions ?Recorded ?Confirmed ?Last Taken ?Type fluticasone propionate 50 2 spray intranasal DAILY 08/27/23 08/12/24 Unknown History mcg/actuation nasal spray,suspension loratadine 10 mg tablet 10 mg PO QAM 03/30/24 08/12/24 Unknown History cholecalciferol (vitamin D3) 50 50 mcg PO DAILY 06/18/24 08/12/24 Unknown History mcg (2,000 unit) capsule lidocaine 5 % topical patch 1 patch topical DAILY 06/18/24 08/12/24 Unknown History tirzepatide 5 mg/0.5 mL 5 mg subcut QWEEK 06/18/24 08/12/24 07/29/24 History subcutaneous pen injector (Corie) Exam Height,Weight and Vital Signs: Height 5 ft 7 in Weight 97.976 kg Assessment and Plan Assessment Anesthesia Assessment: Chart Reviewed Final Anesthetic Review Family History of Problems with Anesthesia: No History of Problems with Anesthesia: No Documented by User: Adore Madden, DO 08/12/24 08:54 HPI - Anesthesia Eval Anesthesia Pre-Procedure Meds Is the patient on any of the following meds?: GLP1/DPP4 PMFSH Past Medical History Medical History (Updated 08/10/24 @ 09:28 by Melody Menjivar RN) Diabetes Anal pain Constipation Hemorrhoids with complication Pelvic varices Family History Family History Maternal Aunt Breast cancer in female Mother HTN (hypertension) Family history of problems with anesthesia: No Surgical History Surgical History History of hemorrhoidectomy History of Problems with Anesthesia: No Social History Social History Alcohol intake: former Patient Tobacco Use Status: Current everyday Tobacco user Tobacco use type: Cigarette Cigarettes Per Day: 5 Years Smoked: 16 Advance Directives: No Advance Directives Information Provided: Yes Meds Allergies Allergy/AdvReac Type Severity Reaction Status Date / Time No Known Allergies Allergy Mild NOT Verified 08/12/24 08:45 APPLICABLE Home Medications ?Medication ?Instructions ?Recorded ?Confirmed ?Last Taken ?Type fluticasone propionate 50 2 spray intranasal DAILY 08/27/23 08/12/24 Unknown History mcg/actuation nasal spray,suspension loratadine 10 mg tablet 10 mg PO QAM 03/30/24 08/12/24 Unknown History cholecalciferol (vitamin D3) 50 50 mcg PO DAILY 06/18/24 08/12/24 Unknown History mcg (2,000 unit) capsule lidocaine 5 % topical patch 1 patch topical DAILY 06/18/24 08/12/24 Unknown History tirzepatide 5 mg/0.5 mL 5 mg subcut QWEEK 06/18/24 08/12/24 07/29/24 History subcutaneous pen injector (Husseinmatthew) Exam Exam Date and Time: 08/12/24 0850 Airway Mallampati Class: I TM Dist: >3cm Neck ROM: Full Loose/Missing/Broken Teeth: No (patient denies any loose or broken teeth) Heart: S1S2 Lungs: CTAB Assessment and Plan Assessment Anesthesia Assessment: Anesthesia Plan Discussed and Chart Reviewed Final Anesthetic Review Family History of Problems with Anesthesia: No History of Problems with Anesthesia: No NPO: Yes ASA Class: II Final Preanesthetic Review: No Changes in Pt Med Stat, Meds/Allgs Chart Reviewed, Consent Obtained/Reviewed and Anes Risks/Benef Reviewed Patient Risk: Low Procedure Risk: Low Anesthetic Plan Anesthetic Plan: MAC: and Agree w/ Assess. and Plan Disposition: Standard PACU
[2024-08-12 08:54] VITALS: BP 103/64; PULSE 73; RESP 16; TEMP 36.4; O2SAT 95
[2024-08-12 09:03] LABS: UPreg QC Valid YES; Urine Pregnancy NEGATIVE (NEGATIVE)
[2024-08-12 09:06] LABS: Glucose, Whole Blood 108 mg/dL (60-115)
[2024-08-12] MEDS: Lactated Ringers 1,000 ML 100 ML IVCONT (09:12)
[2024-08-12 09:37] VITALS: BP 97/58; PULSE 77; RESP 12; TEMP 36.1; O2SAT 97
[2024-08-12 09:52] VITALS: BP 105/65; PULSE 73; RESP 16; O2SAT 97
--- NOTE | 2024-08-12 10:02 | P.OPN-COLO_ITS ---
Colonoscopy Operative Note Operative Note Date of Service: 08/12/24 Narrative: Procedure: Colonoscopy Indication: left sided abd pain Endoscopist: Deepali Lr MD Anesthesia Provider: Sukumar Bautista CRNA Anesthesia type: MAC Instrument: Olympus [id number]-H190L Consent: Indication, risks vs benefits, and alternatives were discussed with the patient who gave written informed consent to proceed. EKG, pulse, pulse oximetry and blood pressure were monitored throughout the procedure. Please see anesthesia flowsheet. Procedure: The patient was brought to the procedure room and placed in the left lateral decubitus position. IV medications were administered by the anesthesia provider in attendance. A digital rectal exam was performed which was normal. A distal attachment cap was affixed to the tip of the colonoscope which was then inserted through the anus and advanced through the colon to the cecum at 75 cm,and terminal ileum. Appendiceal orifice and ileocecal valve were identified. Mucosa was carefully examined under high definition white light as the instrument was slowly withdrawn in a retrograde panoramic fashion. Retroflexion was performed in ascending colon and rectum. The procedure was not difficult. There were no immediate obvious complications. The quality of the prep was BBPS: 2+2+3 = adequate Withdrawal time 8 minutes. Limitations: No limitations. Findings: Mucosa: Normal to cecum and terminal ileum. Cold forceps biopsies were taken from the right and left side of the colon. Protruding lesions: * Small internal hemorrhoids without stigmata of recent bleeding. Impression: 1. Normal colon and terminal ileum mucosa (biopsy) 2. Internal hemorrhoids Recommendations: - Colonoscopy for asymptomatic colorectal cancer screening in 5 years
[2024-08-12 10:09] VITALS: BP 110/70; PULSE 65; RESP 16; TEMP 36.1; O2SAT 97
== END 2024-08-12 11:05 | disposition home or self-care (01) ==
PROVIDERS: Nurse Practitioner; PCP Family Medicine; Visit Provider Internal Medicine
PROC: 0DJD8ZZ Inspection of Lower Intestinal Tract, Via Natural or Artificial Opening Endoscopic (ICD-10-PCS; CPT 45378; principal; 2024-08-12 10:10)
DX: R10.32 Left lower quadrant pain (principal); K59.04 Chronic idiopathic constipation; R14.0 Abdominal distension (gaseous); R19.5 Other fecal abnormalities; K64.8 Other hemorrhoids; K62.5 Hemorrhage of anus and rectum; K62.89 Other specified diseases of anus and rectum; I86.2 Pelvic varices; E11.9 Type 2 diabetes mellitus without complications; E66.01 Morbid (severe) obesity due to excess calories; Z68.35 Body mass index [BMI] 35.0-35.9, adult; Z79.85 Long-term (current) use of injectable non-insulin antidiabetic drugs; Z79.899 Other long term (current) drug therapy; F17.210 Nicotine dependence, cigarettes, uncomplicated
CPT/HCPCS: 45380; 81025; 82947; 88305; J2003; J2704

== ENCOUNTER → 2024-08-12 07:56 | Outpatient (BNV) | payer OTHER, SELFPAY | PROVIDERS: PCP Family Medicine; Visit Provider Internal Medicine | DX: R10.32 Left lower quadrant pain (principal); K64.8 Other hemorrhoids | CPT/HCPCS: 45380 ==

== ENCOUNTER 2024-08-27 11:04 | Outpatient (AMB) | payer OTHER, SELFPAY ==
--- NOTE | 2024-08-27 11:07 | A.OFFVIS_ITS ---
Vital Signs 08/27/24 11:08 Height 5 ft 7 in Weight 213 lb 6.519 oz BMI 33.4 BP 106/66 Blood Pressure Location Lt brachial Position Sitting Pulse 78 Pulse Source Pulse Oximeter Pulse Oximetry (%) 99 Oxygen Delivery Method Room Air Intake Visit Reasons: s/p colon Intake Note: ESTABLISHED PATIENT Reason; scheduled in office s/p FUV Changes/concerns? Abd pain, constipation, hemorrhoid mgmt. Allergies No Known Allergies Allergy (Mild, Verified 08/27/24 11:08) NOT APPLICABLE HPI HPI s/p colon: Details: LAST VISIT Constipation Hemorrhoids with complication Rectal bleed Plan Discussed with patient CT scan results. Patient had normal study. Script for Proctosol send. Patient will start taking stool softener. Increase fluid intake and activity to promote better bowel motility. Patient has a colonoscopy scheduled for July. What to expect before during and after procedure discussed with patient. Stressed the importance of good bowel prep and clear liquid diet day before procedure. I will see her after the procedure, sooner on as needed basis. She is agreeable to this plan and verbalizes understanding of instructions. She was given the opportunity to ask questions and all questions answered. ? Thank you for allowing me to participate in her care Medications New polyethylene glycol 3350 (Miralax) As directed by gastroenterology department at [facility] 238 grams PO ONCE 238 grams 0RF Z12.11 Refilled docusate sodium 200 mg (2 x 100 mg) PO BEDTIME 180 caps 3RF K59.00 bisacodyl (Dulcolax (bisacodyl)) 10 mg (2 x 5 mg) PO BEDTIME 180 tabs 4RF hydrocortisone 2.5% (Proctosol HC) 1 appl NV BID-QID PRN 30 grams 2RF hemorrhoids K64.9 COLONOSCOPY Findings: Mucosa: Normal to cecum and terminal ileum. Cold forceps biopsies were taken from the right and left side of the colon. Protruding lesions: * Small internal hemorrhoids without stigmata of recent bleeding. Impression: 1. Normal colon and terminal ileum mucosa (biopsy) 2. Internal hemorrhoids Recommendations: - Colonoscopy for asymptomatic colorectal cancer screening in 5 years TODAY'S VISIT Patient is here today for follow-up and to discuss colonoscopy results. Patient had normal colonoscopy no polyps. Internal hemorrhoids found without stigmata of recent bleeding. Patient continue to have rectal discomfort from her hemor rhoids, however went to see colorectal surgeon and no need for hemorrhoidectomy. Her hemorrhoids are too small. Patient uses Proctosol cream occasionally. She continues to be constipated. 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 Patient is taking 2 tablets of Dulcolax on the weekends. Patient reports that she is drinking plenty fluids. Patient denies melena, hematochezia. Denies any dyspepsia, dysphagia or odynophagia. Patient reports abdominal cramping specially when she is constipated or just before she has to have a bowel movement. [facility] Medical History Diabetes Anal pain Constipation Hemorrhoids with complication Pelvic varices Surgical History History of hemorrhoidectomy Family History Maternal Aunt Breast cancer in female Mother HTN (hypertension) Social History Alcohol intake: former Patient Tobacco Use Status: Current everyday Tobacco user Tobacco use type: Cigarette Cigarette Packs Per Day: 0.5 Cigarettes Per Day: 10.0 Years Smoked: 16 Female Reproductive History Menstrual Age of Menarche: 10 Review of Systems Const Denies weight gain and Denies weight loss ENT Reports no additional complaints, Denies dysphagia and Denies odynophagia Card Reports no additional complaints Resp Reports no additional complaints GI Reports abdominal pain, Denies belching, Denies melena, Reports bloating, Denies change in bowel habits, Reports constipation, Denies dysphagia, Denies excessive flatus, Denies dyspepsia, Denies heartburn, Denies diarrhea, Denies loose stools, Denies nausea, Denies odynophagia and Denies vomiting Reports no additional complaints Musc Reports no additional complaints Neuro Reports no additional complaints Psych Reports no additional complaints Endo Reports no additional complaints Physical Exam Vital Signs: Last Vital Signs Pulse 78 08/27/24 11:08 BP 106/66 08/27/24 11:08 Pulse Ox 99 08/27/24 11:08 Oxygen Delivery Method Room Air 08/27/24 11:08 BMI result Body Mass Index 33.4 Const General: healthy appearing and no acute distress Nutritional Appearance: obese Orientation/consciousness: patient oriented x3 Resp Effort & Inspection: normal respiratory effort, able to speak in complete sentences, no tracheal deviation and symmetric chest movement Auscultation: clear to auscultation bilaterally Cardio Rate: regular rate GI Inspection: Yes normal to inspection, No distended and Yes obesity Palpation (GI): Soft to palpation, not firm, nontender and No hepatosplenomegaly present Auscultation: normal bowel sounds General: Yes no CVA tenderness Back/Spine/Pelvis Back: no CVA tenderness Skin General skin exam: elasticity normal, turgor normal and dry skin Neuro General: patient oriented x3 Psych Appearance: grossly normal Mental Status: mental status grossly normal Assessment & Plan Assessment & Plan (1) Constipation: Code(s): K59.00 - Constipation, unspecified Category: Medical Qualifiers: Constipation type: chronic idiopathic constipation Qualified Code(s): K59.04 - Chronic idiopathic constipation (2) Hemorrhoids with complication: Code(s): K64.8 - Other hemorrhoids Category: Medical (3) Rectal bleed: Code(s): K62.5 - Hemorrhage of anus and rectum Plan Patient was encouraged to increase fluid intake and activity to promote better bowel motility. Patient can take Dulcolax before dinner and see if she will have a bowel movement at night time. Continue Linzess in the morning. Patient can try to take MiraLax in the morning or mid day to see if it will help. Patient reports that she did with with MiraLax prep before colonoscopy tolerated well without having any abdominal cramps. Follow-up in 4 months, sooner on as needed basis. She is agreeable to current plan of care and verbalizes understanding of instructions. She was given the opportunity to ask questions and all questions answered. Thank you for allowing me to participate in her care Medications: New polyethylene glycol 3350 (Miralax) 17 grams PO DAILY 510 grams 2RF Coding Level of Care Code Est Pt Level 3 (66143) Diagnoses Chronic idiopathic constipation K59.04 Constipation type: chronic idiopathic constipation Hemorrhoids with complication K64.8 Rectal bleed K62.5 Time Spent (min) 30 Comment 20 minutes spent with patient and additional 10 minutes spent reviewing her records
[2024-08-27 11:08] VITALS: BP 106/66; PULSE 78; O2SAT 99; BMI 33.4
== END 2024-08-27 11:37 | disposition home or self-care (01) ==
PROVIDERS: PCP Family Medicine; Visit Provider Nurse Practitioner Family
DX: K59.04 Chronic idiopathic constipation (principal); K64.8 Other hemorrhoids; K62.5 Hemorrhage of anus and rectum
CPT/HCPCS: 99213

== ENCOUNTER → 2024-08-27 11:04 | Outpatient (BNVA) | payer OTHER, SELFPAY | PROVIDERS: PCP Family Medicine; Visit Provider Nurse Practitioner Family | DX: K59.04 Chronic idiopathic constipation (principal); K64.8 Other hemorrhoids; K62.5 Hemorrhage of anus and rectum | CPT/HCPCS: 99212 ==

== ENCOUNTER 2024-09-13 12:11 | Emergency (ER) | payer OTHER, SELFPAY ==
--- NOTE | ~2024-09-13 | US_ITS ---
EXAMINATION: US ABDOMEN LIMITED HISTORY: epigastric pain, RUQ pain TECHNIQUE: Real-time grayscale ultrasound imaging of the right upper quadrant was performed and images were reviewed. COMPARISON: Correlation is made with an unenhanced CT of the abdomen dated 05/04/2024. FINDINGS: Liver: The liver is normal in size and demonstrates homogeneous echotexture. No focal mass or intrahepatic biliary ductal dilatation is identified. Gallbladder and biliary tree: The gallbladder is unremarkable, without evidence of calculi, wall thickening, or pericholecystic fluid. There is no sonographic Nath sign. The common bile duct is normal in caliber measuring 3 mm. Right Kidney: The right kidney measures 10.6 cm in length. The right kidney is unremarkable, without evidence of masses, hydronephrosis, or calculi. Pancreas: The pancreatic head, neck, and body are unremarkable. The pancreatic tail is obscured by bowel gas. Abdominal aorta and inferior vena cava: The visualized portions of the abdominal aorta and inferior vena cava are normal in caliber. There is no free fluid in the right upper quadrant. US/US abdomen limited IMPRESSION: Unremarkable right upper quadrant ultrasound. Electronically signed by: Hernandez Walsh MD 09/13/2024 01:31 PM [facility]
[2024-09-13 12:18] VITALS: BP 118/78; PULSE 93; RESP 18; TEMP 36.8; O2SAT 98; BMI 32.5
--- NOTE | 2024-09-13 12:20 | ED_ITS ---
HPI - General Adult General Chief complaint: Abdominal Pain Stated complaint: rib pain Time Seen by Provider: 09/13/24 17:21 Source: patient and RN notes reviewed Mode of arrival: ambulatory Limitations: no limitations History of Present Illness ED Provider: Jania Velázquez PA-C HPI narrative: This is a 39-year-old female who presents emergency department with complaints of epigastric pain and right upper quadrant pain and right flank paain for several weeks. She states no recent trauma or injury. Also endorsing nausea, chills. She denies any known fevers, chest pain, shortness of breath, vomiting, diararhea, or constipation. No urinary symptoms. Pain worsened in her flank and abdomen with positional changes. No other complaints or concerns at this time. MD complaint: abd pain, flank paian Onset (ago): week(s) Relieving factors: none Exacerbating factors: none Associated symptoms: denies other symptoms Treatments prior to arrival: none Related Data Home Medications ?Medication ?Instructions ?Recorded ?Confirmed fluticasone propionate 50 2 spray intranasal DAILY 08/27/23 08/12/24 mcg/actuation nasal spray,suspension loratadine 10 mg tablet 10 mg PO QAM 03/30/24 08/12/24 cholecalciferol (vitamin D3) 50 50 mcg PO DAILY 06/18/24 08/12/24 mcg (2,000 unit) capsule lidocaine 5 % topical patch 1 patch topical DAILY 06/18/24 08/12/24 tirzepatide 5 mg/0.5 mL 5 mg subcut QWEEK 06/18/24 08/12/24 subcutaneous pen injector (Corie) Previous Rx's ?Medication ?Instructions ?Recorded ibuprofen 600 mg tablet 600 mg PO Q6H PRN pain #30 tabs 10/02/23 magnesium citrate (Citrate of 150 ml PO DAILY PRN constipation 03/30/24 Magnesia oral) #296 mL docusate sodium 100 mg capsule 200 mg (2 x 100 mg) PO BEDTIME 06/18/24 #180 caps hydrocortisone 2.5 % topical cream 1 appl GA BID-QID PRN hemorrhoids 06/18/24 with perineal applicator #30 grams (Proctosol HC) linaclotide 290 mcg capsule 290 mcg PO QAM #30 caps 08/03/24 (Linzess) polyethylene glycol 3350 17 17 g PO DAILY #510 grams 08/27/24 gram/dose oral powder (Miralax) Allergies Allergy/AdvReac Type Severity Reaction Status Date / Time No Known Allergies Allergy Mild NOT Verified 09/13/24 12:23 APPLICABLE Review of Systems 2 Review of Systems: Yes all other systems are reviewed and are negative Constitutional: Constitutional: Reports as per HPI [facility] Past Medical History Medical History Diabetes Anal pain Constipation Hemorrhoids with complication Pelvic varices Surgical History History of hemorrhoidectomy Family History Family History Maternal Aunt Breast cancer in female Mother HTN (hypertension) Social History Social History Alcohol intake: former Patient Tobacco Use Status: Current everyday Tobacco user Tobacco use type: Cigarette Cigarette Packs Per Day: 0.5 Cigarettes Per Day: 10.0 Years Smoked: 16 Advance Directives: No Advance Directives Information Provided: No Physical Exam ED Vital Signs: Vital Signs - 24 hr 09/13/24 12:18 Temperature 98.2 F Pulse Rate 93 Respiratory Rate 18 Blood Pressure 118/78 Pulse Oximetry 98 Oxygen Delivery Method Room Air BMI result Body Mass Index 32.5 Const General: cooperative, comfortable and no acute distress Orientation/consciousness: patient oriented x3 Limitations: no limitations HENMT Head: Yes normal to inspection, Yes normocephalic and Yes atraumatic Ears: hearing grossly normal bilaterally General nose exam: Normal external nose present Face and sinus: Yes normal facial exam Mouth: Normal oral and palatal mucosa present, oropharynx normal and moist mucous membranes Throat: Yes posterior oropharynx normal Eyes General: appearance normal, both eyes and all related structures Eyelids: Yes eyelids normal Conjunctivae: conjunctivae normal Sclerae: sclerae normal Pupils: Equal, round and reactive pupils present EOM: EOMs intact bilaterally Neck Neck: Yes normal visual inspection, Yes full ROM and Yes no lymphadenopathy Lymphatic: no lymphadenopathy noted Chest Chest palpation & inspection: normal inspection of the chest Resp Effort & Inspection: normal respiratory effort and able to speak in complete sentences Auscultation: clear to auscultation bilaterally, no crackles, no rales, no rhonchi and no wheezes Cardio Rate: regular rate Rhythm: regular rhythm Heart sounds: S1 normal heart sound present and S2 normal heart sound present GI Other: abdomen is soft and nontender. no cva tenderness, pain elicted with movement of her torso. no rebound or guarding. Inspection: Yes normal to inspection Skin General skin exam: no rashes or lesions noted Trauma: no lacerations or abrasions Wounds: no wounds Neuro General: patient oriented x3 and moves all extremities Cranial nerves: Yes Equal, round and reactive pupils present Extrem General: Yes normal to inspection Right upper extremity: normal to inspection Left upper extremity: normal to inspection Right lower extremity: normal to inspection Left lower extremity: normal to inspection Course Course Course Narrative: This is an RME: Additional HPI, ROS, PE not included below will be deferred to primary provider. RME assessment and note performed by: Jania Velázquez PA-C Plan: Labs, UA, ultrasound, further ER evaluation needed. Reevaluation(s) Reevaluation #1: Labs reassuring. Upon reassessment, pt's pain in right flank worsening with palpation and with torso rotation. Abdomen is soft, nontender. She is feeling well and is anxious for discharge. Discussed that symptoms maybe MSK in nature. She has no CVA tenderness or urinary symptoms to suggest pyelonephritis/obstructive pathology. Given return precautions. Stable for d/c. Medical Decision Making Medical Decision Making [facility] Narrative: This is a 39-year-old female who presents emergency department with complaints of epigastric pain and right upper quadrant pain. Also endorsing nausea, chills. On arrival, vital signs WNL. She is well appearing under no acute distress. She had mild ttp in the epigastrium and RUQ upon initial assessment therefore US was obtained and was normal. DDX including cholecysitits, gastritis, UTI - unlikely, MSK strain Differential Diagnosis Differential Diagnoses: The differential diagnosis associated with the presentation includes see above Lab Data [facility] Lab Attestation statement: I reviewed the patient's lab results. No leukocytosis, stable H&H, chemistry with no significant electrolyte derangements. ALT slightly above normal limits, nondiagnostic. neg . 09/13/24 12:34 09/13/24 12:34 Labs: Lab Results 09/13/24 Range/Units 12:34 WBC 8.2 (4.8-10.8) X10*3/uL RBC 4.27 (4.20-5.50) X10*6/uL Hgb 13.0 (12.0-16.0) g/dl Hct 38.4 (37.0-47.0) % MCV 89.9 (80.0-98.0) fL MCH 30.4 (27.0-33.0) pg MCHC 33.9 (31.0-35.0) g/dl RDW 13.2 (11.0-16.0) % Plt Count 370 (160-400) X10*3/uL MPV 8.8 L (9.4-12.3) fL Immature Gran % (Auto) 0.2 (0.0-0.4) % Neut % (Auto) 59.1 (45-73) % Lymph % (Auto) 34.6 (20-40) % [facility] [facility] % (Auto) 4.9 (2-11) % Eos % (Auto) 0.8 (0-4) % Baso % (Auto) 0.4 (0-2) % Lymph # (Auto) 2.9 (1.2-4.9) X10*3/uL [facility] [place] [facility] # (Auto) 0.4 (0.1-1.2) X10*3/uL Eos # (Auto) 0.1 (0.0-0.4) X10*3/uL Baso # (Auto) 0.0 (0.0-0.2) X10*3/uL Abs Immat Gran (auto) 0.02 (0.00-0.03) X10*3/uL Absolute Neuts (auto) 4.9 (2.0-8.3) x10*3/uL Absolute Nucleated RBC 0.000 (0.0-0.012) X10*3/uL Nucleated RBC % (auto) 0.0 (0.0-0.2) /100WBC Sodium 140 (135-145) mmol/L Potassium 3.9 (3.3-5.1) mmol/L Chloride 107 (96-108) mmol/L Carbon Dioxide 23 (22-29) mmol/L Anion Gap 14 (12-20) BUN 12 (9-16) mg/dL Creatinine 0.61 (0.5-1.4) mg/dL Estim Creat Clear Calc 142.9 Estimated GFR > 60 Random Glucose 87 (60-115) mg/dL Calcium 8.9 (8.4-10.2) mg/dL Magnesium 2.0 (1.6-2.6) mg/dL Total Bilirubin 0.5 (0.0-1.0) mg/dL Direct Bilirubin 0.1 (0.0-0.5) mg/dL AST 28 (5-31) U/L ALT 45 H (0-31) U/L Alkaline Phosphatase 83 (39-117) U/L Troponin I High Sens < 2.7 (<3.5-17.0) ng/L Total Protein 7.9 (6.5-8.0) g/dL Albumin 4.3 (3.5-5.0) g/dL Lipase 19 (8-78) U/L Beta HCG, Quant < 2 mIU/mL Influenza Type A (PCR) NEGATIVE (Negative) Influenza Type B (PCR) NEGATIVE (Negative) RSV RNA Qual (PCR) NEGATIVE (Negative) SARS-CoV-2 RNA (RT-PCR) NEGATIVE (Negative) Independent Interpretation I performed an independent interpretation of an: EKG Interpretation: 86 NSR, no ST elevation or depression. Radiology Impression Discussion of test interpretation with radiology: I have reviewed the radiologist's reading. Radiologist Impression: [place] [id number] Ultrasound Report Signed Patient: Casie Maki MR#: [id number] : 1985 Acct:[id number] Age/Sex: 39 / F ADM Date: 09/13/24 Loc: HO.ED Attending Dr: Ordering Physician: Jania Velázquez Date of Service: 09/13/24 Procedure(s): US abdomen limited Accession Number(s): [id number] cc: KevCasie Parker DO; Jania Velázquez~ EXAMINATION: US ABDOMEN LIMITED HISTORY: epigastric pain, RUQ pain TECHNIQUE: Real-time grayscale ultrasound imaging of the right upper quadrant was performed and images were reviewed. COMPARISON: Correlation is made with an unenhanced CT of the abdomen dated 05/04/2024. FINDINGS: Liver: The liver is normal in size and demonstrates homogeneous echotexture. No focal mass or intrahepatic biliary ductal dilatation is identified. Gallbladder and biliary tree: The gallbladder is unremarkable, without evidence of calculi, wall thickening, or pericholecystic fluid. There is no sonographic Nath sign. The common bile duct is normal in caliber measuring 3 mm. Right Kidney: The right kidney measures 10.6 cm in length. The right kidney is unremarkable, without evidence of masses, hydronephrosis, or calculi. Pancreas: The pancreatic head, neck, and body are unremarkable. The pancreatic tail is obscured by bowel gas. Abdominal aorta and inferior vena cava: The visualized portions of the abdominal aorta and inferior vena cava are normal in caliber. There is no free fluid in the right upper quadrant. US/US abdomen limited IMPRESSION: Unremarkable right upper quadrant ultrasound. Electronically signed by: Hernandez Walsh MD 09/13/2024 01:31 PM [facility] Dictated By: Hernandez Walsh MD Discharge Plan Discharge Clinical Impression: Acute epigastric pain, Lumbar paraspinal muscle spasm Patient Disposition: Home, Self-Care Instructions: Muscle Spasm (ED), Epigastric Pain (ED) Additional Instructions: You were seen in the emergency department due to upper abdominal pain. Your blood work was reassuring today. Your ultrasound revealed a normal gall bladder. You tested negative for COVID, flu, RSV. Your EKG was normal. It is unclear what is causing you to have the symptoms however this can be related to muscle spasms. Alternate between ibuprofen and Tylenol. Follow-up with your primary care physician regarding this visit. If any new or worsening symptoms occur including but not limited to chest pain, shortness of breath, please seek emergent care. Prescriptions: No Action Linzess 290 mcg capsule 290 mcg PO QAM Qty: 30 4RF ibuprofen 600 mg tablet 600 mg PO Q6H PRN (Reason: pain) Qty: 30 0RF fluticasone propionate 50 mcg/actuation spray,suspension 2 spray intranasal DAILY loratadine 10 mg tablet 10 mg PO QAM magnesium citrate [Citrate of Magnesia] Solution 150 ml PO DAILY PRN (Reason: constipation) Qty: 296 5RF Mounjaro 5 mg/0.5 mL pen injector 5 mg subcut QWEEK lidocaine 5 % adhesive patch,medicated 1 patch topical DAILY cholecalciferol (vitamin D3) 50 mcg (2,000 unit) capsule 50 mcg PO DAILY docusate sodium 100 mg capsule 200 mg PO BEDTIME Qty: 180 3RF hydrocortisone [Proctosol HC] 2.5 % cream with perineal applicator 1 appl GA BID-QID PRN (Reason: hemorrhoids) Qty: 30 2RF polyethylene glycol 3350 [Miralax] 17 gram/dose powder 17 g PO DAILY Qty: 510 2RF Discharge Date/Time: 09/13/24 17:41 Print Language: Chinese
--- NOTE | 2024-09-13 12:22 | ECG_ITS ---
Test Reason : epigastric pain Blood Pressure : */* mmHG Vent. Rate : 86 BPM Atrial Rate : 86 BPM P-R Int : 162 ms QRS Dur : 90 ms QT Int : 360 ms P-R-T Axes : 3 34 34 degrees QTcB Int : 430 ms Normal sinus rhythm Normal ECG When compared with ECG of 02-Mar-2023 16:51, No significant change was found Referred By: Jania Velázquez Electronically Signed By: CHERELLE LANG MD
[2024-09-13 12:43] LABS: MANUAL DIFF FLAG NO
[2024-09-13 12:46] LABS: Basophils Percent Auto 0.4 % (0-2); Eosinophils Absolute Auto 0.1 X10*3/uL (0.0-0.4); Eosinophils Percent Auto 0.8 % (0-4); Hematocrit 38.4 % (37.0-47.0); Imm Gran Abs Auto 0.02 X10*3/uL (0.00-0.03); Imm Gran Pct Auto 0.2 % (0.0-0.4); Lymphocytes Absolute Auto 2.9 X10*3/uL (1.2-4.9); Lymphocytes Percent Auto 34.6 % (20-40); Mean Corpuscular HGB Conc 33.9 g/dl (31.0-35.0); Mean Corpuscular Hemoglobin 30.4 pg (27.0-33.0); Mean Corpuscular Volume 89.9 fL (80.0-98.0); Mean Platelet Volume 8.8 fL (9.4-12.3); Monocytes Absolute Auto 0.4 X10*3/uL (0.1-1.2); Monocytes Percent Auto 4.9 % (2-11); Neutrophils Absolute Auto 4.9 x10*3/uL (2.0-8.3); Neutrophils Percent Auto 59.1 % (45-73); Platelet Count 370 X10*3/uL (160-400); Red Blood Count 4.27 X10*6/uL (4.20-5.50); Red Cell Distribution Width 13.2 % (11.0-16.0); White Blood Count 8.2 X10*3/uL (4.8-10.8)
[2024-09-13 13:07] LABS: Alanine Aminotransferase 45 U/L (0-31); Albumin Level 4.3 g/dL (3.5-5.0); Alkaline Phosphatase 83 U/L (39-117); Anion Gap 14 (12-20); Aspartate Amino Transferase 28 U/L (5-31); Bilirubin Direct 0.1 mg/dL (0.0-0.5); Bilirubin Total 0.5 mg/dL (0.0-1.0); Blood Urea Nitrogen 12 mg/dL (9-16); Calcium 8.9 mg/dL (8.4-10.2); Carbon Dioxide 23 mmol/L (22-29); Chloride 107 mmol/L (96-108); Creatinine Clr Calc Pharmacy 142.9; Estimated Glomerular Filt Rate > 60; Glucose Random 87 mg/dL (60-115); Lipase 19 U/L (8-78); Potassium 3.9 mmol/L (3.3-5.1); Sodium 140 mmol/L (135-145); Total Protein 7.9 g/dL (6.5-8.0)
[2024-09-13 13:16] LABS: HCG Quantitative < 2 mIU/mL; Troponin-I High Sensitivity < 2.7 ng/L (<3.5-17.0)
[2024-09-13 13:21] LABS: Influenza A PCR NEGATIVE (Negative); Influenza B PCR NEGATIVE (Negative); Resp Syncy Virus RNA Qual PCR NEGATIVE (Negative); SARS COV2 PCR INHOUSE NEGATIVE (Negative)
--- NOTE | 2024-09-13 17:39 | PC.NURSE ---
this RN was notified that the patient was planning on leaving without completing treatment. I went out to the and brought her into a gu chair and the [facility] reviewed all results with the patient and follow up care recommended.
== END 2024-09-13 17:41 | disposition home or self-care (01) ==
PROVIDERS: Physician Assistant Medical; Emergency Provider Emergency Medicine Emergency Medical Services; PCP Family Medicine
DX: R10.13 Epigastric pain (principal); M62.830 Muscle spasm of back; R10.11 Right upper quadrant pain; E11.9 Type 2 diabetes mellitus without complications; Z79.899 Other long term (current) drug therapy; Z03.818 Encounter for observation for suspected exposure to other biological agents ruled out
CPT/HCPCS: 0241U; 36415; 76705; 80048; 80076; 83690; 83735; 84484; 84702; 85025; 93005; 99283; 99284

== ENCOUNTER → 2024-09-13 12:22 | Outpatient (BNV) | payer OTHER, SELFPAY | PROVIDERS: PCP Family Medicine; Visit Provider Radiology Diagnostic Radiology | DX: R10.11 Right upper quadrant pain (principal) | CPT/HCPCS: 76705 ==

== ENCOUNTER → 2024-09-13 12:22 | Outpatient (BNV) | payer OTHER, SELFPAY | PROVIDERS: Emergency Provider Emergency Medicine Emergency Medical Services; PCP Family Medicine; Visit Provider Internal Medicine Cardiovascular Disease | DX: R10.13 Epigastric pain (principal) | CPT/HCPCS: 93010 ==

== ENCOUNTER 2024-09-25 05:36 | Emergency (ER) | payer OTHER, SELFPAY ==
--- NOTE | ~2024-09-25 | CT_ITS ---
CLINICAL HISTORY: diffuse abd pain, constipation, flank pain CT abdomen and pelvis with contrast Comparison: CT/IA/SR - CT ABDOMEN PELVIS W IV CON - 10/02/23 12:21 EST Findings: No consolidation or effusion. The gallbladder and solid organs are within normal limits. No renal stones. No bowel obstruction, pneumoperitoneum, or pneumatosis. Pelvic contents unremarkable. Appendix not definitively seen but there are no inflammatory changes in the region of the cecum. No adenopathy or fluid collections. Nonaneurysmal aorta. No acute fracture. IMPRESSION: No acute findings. No evidence of biliary obstruction, bowel obstruction or obstructive uropathy. Appendix not seen but there are no inflammatory changes in the right lower quadrant This document has been electronically signed by: Dayan Leblanc MD on 09/25/2024 08:38:29
[2024-09-25 05:38] VITALS: BP 108/68; PULSE 85; RESP 16; TEMP 36.4; O2SAT 96; BMI 33.5
[2024-09-25 05:54] VITALS: BP 110/68; PULSE 86; RESP 14; TEMP 36.6; O2SAT 98
--- OUTSIDE RECORDS SUMMARY | 2024-09-25 06:03 | XMS_ITS | Encounter Summary ---
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 Name Role Phone Casie Angulo DO Primary Care Provider Antoinette Liu PharmD Unavailable Reason for Visit * Reason Onset Date Comments Nurse Triage 07/28/2023 Encounter Details Date Type Department Care Team ([facility] st Contact Info) Description 07/28/2023 Telephone [facility] [address], [place] [phone] Casie Angulo DO [address] [place] [address] Nurse Triage Social History Tobacco Use Types Packs/Day Years Used Date Smoking Tobacco: Every Day Cigarettes Smokeless Tobacco: Never Alcohol Use Standard Drinks/Week Comments Never 0 (1 standard drink = 0.6 oz pur e alcohol) Depression Answer Date Recorded Patient Health Questionnaire-9 Score 0 12/18/2022 Depression Answer Date Recorded Patient Health Questionnaire-2 Score 0 12/18/2022 Comments No Sex and Gender Information Value Date Recorded Sex Assigned at Female 06/24/2022 10:15 AM EDT Legal Sex Female 10:15 AM EDT Gender Identity Female 06/24/2022 10:15 AM EDT Sexual Orientation Straight 06/24/2022 10 :15 AM EDT documented as of this encounter Miscellaneous Notes * Telephone Encounter - Rose Mary Hernandez RN - 07/28/2023 11:05 AM EST triage call Pt reports a sore throat for several weeks now. Missed apt in Jun, due to work schedule. Pt reports the sore throat is continuing and it hurts on the sides of the throat, inside now too. Pt neg for fever, earache. Drinking adequate liquids and eating without discomfort. Apt 1130am with PCP today. Insurance is verified as active prior to booking. Protocol Used: Sore Throat (Adult) Protocol-Based Disposition: Strep Test Only Visit Today or Tomorrow Video visit not offered Positive Triage Question: * Sore throat is main symptom and persists > 48 hours * All higher-acuity triage questions were negative Care Advice Discussed: * Reassurance and Education - Sore Throat * Sore Throat * Drink Plenty of Liquids * Reasons To Call Back - Sore throat is the main symptom and it lasts longer than 48 hours - Sore throat is mild but lasts longer than 4 days - Fever lasts longer than 3 days - You become worse * Telephone Encounter - Deandra Willis - 07/28/2023 10:06 AM EST Symptom: Sore Throat Outcome: Schedule an appointment to be seen within 24 hours Reason: Caller denied all higher acuity questions The caller accepted this outcome documented in this encounter Plan of Treatment Upcoming Encounters Date Type Department Care Team (Late st Contact Info) Description 09/27/2024 12:00 PM EST Office Visit [facility] [address] [place] [address] Casie Angulo DO [address] [place] [address] 10/04/2024 10:00 AM EST Office Visit [facility] [address] [place] [address] Nicole Lozano DDS [address] [place] [address] 10/04/2024 1:30 PM EST Office Visit [facility] [address] [place] [address] Trevon Adkins DDS [address] [place] [address] 10/14/2024 9:00 AM EST Office Visit [facility] [address], [place] [phone] Liya Rachel [address] [place] [address] documented as of this encounter Goals Goal Patient Goal Type Associated Problems Recent Progress Patient-Stated? Author Hemoglobin A1c < 7 Result Component 6.3( 9:12 AM EST) No Alvin Caldera PharmD Record your blood sugar as directed Result Component No Antoinette Liu PharmD Note: Encouraged patient to increase frequency of SMBG monitoring to guide tx modification. documented as of this encounter Visit Diagnoses Not on filedocumented in this encounter Additional Health Concerns Assessment Noted Time PHQ-9 Depression Total Score: 0 12/19/19 10:40 AM EDT documented as of this encounter Care Teams Calculus Teacher Relationship Specialty Start Date End Date Casie Angulo DO [address], [place] [phone] PCP - General Family Medicine 08/25/18 Antoinette Liu PharmD [address] [place] [phone] Pharmacist Internal Medicine 05/01/23 documented as of this encounter
--- OUTSIDE RECORDS SUMMARY | 2024-09-25 06:03 | XMS_ITS | Encounter Summary ---
Author Organization [employer] Address [address] [place] [address] 7 [place] [address] Care Team Providers Care Mechanical Drafter Name Role Phone Casie Angulo DO Primary Care Provider [phone] Antoinette Liu PharmD Unavailable [phone] Reason for Referral * Imaging (Routine) - Authorized Specialty Diagnoses / Procedures Referred By Contac t Referred To Contact Radiology Diagnoses RUQ pain Procedures US Abdomen Complete Casie Angulo DO [address] [place] [address] Phone: tel: fax: [address] Phone: tel: fax: Referral ID Status Reason Start Date Expiration Date V isits Requested Visits Authorized [id number] Authorized 09/01/2024 09/01/2025 1 1 Encounter Details Date Type Department Care Team (Late st Contact Info) Description 09/01/2024 9:00 AM EST Office Visit [facility] [address] [place], [place] [phone] Casie Angulo DO [address] [place], [place] [phone] Type 2 diabetes mellitus without complication, without long-term current use of insulin (CMS/HCC) (Primary Dx); Other hyperlipidemia; Chronic constipation; Chronic allergic rhinitis; RUQ pain; Healthcare maintenance Social History Tobacco Use Types Packs/Day Years Used Date Smoking Tobacco: Every Day Cigarettes Smokeless Tobacco: Never Alcohol Use Standard Drinks/Week Comments Never 0 (1 standard drink = 0.6 oz pur e alcohol) Depression Answer Date Recorded Patient Health Questionnaire-9 Score 8 11/19/2023 Patient Health Questionnaire-9 Score 8 11/19/2023 Last PHQ-9: Questionnaire Data Not on file 0 11/19/2023 Housing Stability Answer Date Recorded What is your housing situation today? I have brynn boyle 11/19/[address] you li ve. Do you have problems with any of the following? None of the above 11/19/2023 Food Insecurity Answer Date Recorded Within the past 12 months, y ou worried that your food would run out before you got money to buy more: Never True 11/11/2023 Within the past 12 months,th e food you bought just didn't last and you didn't have enough money to get more: Never True Transportation Answer Date Recorded In the past 12 months, has l ack of transportation kept you from medical appts, meetings, work or from getting things needed for daily living? No 11/11/2023 Utilities Answer Date Recorded In the past 12 months, has t he electric, gas, oil or water company threatened to shut off services in your home? No 11/11/2023 Depression Answer Date Recorded Patient Health Questionnaire-2 Score 4 11/19/2023 Comments No Sex and Gender Information Value Date Recorded Sex Assigned at Female 06/24/2022 10:15 AM EDT Legal Sex Female 10:15 AM EDT Gender Identity Female 06/24/2022 10:15 AM EDT Sexual Orientation Straight 06/24/2022 10 :15 AM EDT documented as of this encounter Last Filed Vital Signs Vital Sign Reading Time Taken Comments Blood Pressure 118/70 09/01/2024 9:07 AM EST Pulse 86 09/01/2024 9:07 AM EST Temperature 36.2 ??C (97.1 ??F) 09/01/2024 9:07 AM ES T Respiratory Rate 20 09/01/2024 9:07 AM EST Oxygen Saturation - - Inhaled Oxygen Concentration - - Weight 98.9 kg (218 lb) 09/01/2024 9:07 AM EST Height 170.2 cm (5' 7 ) 09/01/2024 9:07 AM EST Body Mass Index 34.14 09/01/2024 9:07 AM EST documented in this encounter Plan of Treatment Upcoming Encounters Date Type Department Care Team (Late st Contact Info) Description 09/27/2024 12:00 PM EST Office Visit [facility] [address] [place] [address] Casie Angulo DO [address] [place] [address] 10/04/2024 10:00 AM EST Office Visit [facility] [address] [place] [address] Nicole Lozano, DDS [address] [place] [address] 10/04/2024 1:30 PM EST Office Visit [facility] [address] [place] [address] Trevon Adkins, DDS [address] [place] [address] 10/14/2024 9:00 AM EST Office Visit [facility] [address] [place] [address] Virginie Liya [address] [place] [address] Scheduled Orders Name Type Priority Associated Diagnoses Orde r Schedule T4, Free Lab Routine Type 2 diabetes mellitus without complication, without long-term current use of insulin ([facility]) Other hyperlipidemia Chronic constipation Chronic allergic rhinitis RUQ pain Healthcare maintenance Expected: 09/01/2024 (Approximate), Expires: 09/01/2025 Vitamin D, 25-Hydroxy, Total, Immunoassay Lab Routine Type 2 diabetes mellitus without complication, without long-term current use of insulin ([facility]) Other hyperlipidemia Chronic constipation Chronic allergic rhinitis RUQ pain Healthcare maintenance Expected: 09/01/2024 (Approximate), Expires: 09/01/2025 Lipid Panel, Standard Lab Routine Type 2 diabetes mellitus without complication, without long-term current use of insulin ([facility]) Other hyperlipidemia Chronic constipation Chronic allergic rhinitis RUQ pain Healthcare maintenance Expected: 09/01/2024 (Approximate), Expires: 09/01/2025 TSH Lab Routine Type 2 diabetes mellitus without complication, without long-term current use of insulin ([facility]) Other hyperlipidemia Chronic constipation Chronic allergic rhinitis RUQ pain Healthcare maintenance Expected: 09/01/2024 (Approximate), Expires: 09/01/2025 Hepatic Function Panel Lab Routine Type 2 diabetes mellitus without complication, without long-term current use of insulin ([facility]) Other hyperlipidemia Chronic constipation Chronic allergic rhinitis RUQ pain Healthcare maintenance Expected: 09/01/2024 (Approximate), Expires: 09/01/2025 Hemoglobin A1c Lab Routine Type 2 diabetes mellitus without complication, without long-term current use of insulin ([facility]) Other hyperlipidemia Chronic constipation Chronic allergic rhinitis RUQ pain Healthcare maintenance Expected: 09/01/2024 (Approximate), Expires: 09/01/2025 Basic Metabolic Panel Lab Routine Type 2 diabetes mellitus without complication, without long-term current use of insulin ([facility]) Other hyperlipidemia Chronic constipation Chronic allergic rhinitis RUQ pain Healthcare maintenance Expected: 09/01/2024 (Approximate), Expires: 09/01/2025 CBC Lab Routine Type 2 diabetes mellitus without complication, without long-term current use of insulin ([facility]) Other hyperlipidemia Chronic constipation Chronic allergic rhinitis RUQ pain Healthcare maintenance Expected: 09/01/2024, Expires: 09/01/2025 Albumin, Random Urine W/Creatinine Lab Routine Type 2 diabetes mellitus without complication, without long-term current use of insulin ([facility]) Other hyperlipidemia Chronic constipation Chronic allergic rhinitis RUQ pain Healthcare maintenance Expected: 09/01/2024 (Approximate), Expires: 09/01/2025 Hepatitis B surface antigen, EIA Lab Routine Type 2 diabetes mellitus without complication, without long-term current use of insulin ([facility]) Other hyperlipidemia Chronic constipation Chronic allergic rhinitis RUQ pain Healthcare maintenance Expected: 09/01/2024 (Approximate), Expires: 09/01/2025 Chlamydia/N. Gonorrhoeae RNA, TMA, Urogenitial Microbiology Routine Type 2 diabetes mellitus without complication, without long-term current use of insulin ([facility]) Other hyperlipidemia Chronic constipation Chronic allergic rhinitis RUQ pain Healthcare maintenance Ordered: 09/01/2024 HIV-1/2 Antigen and Antibodies, Fourth Generation, with Reflexes Lab Routine Type 2 diabetes mellitus without complication, without long-term current use of insulin (CMS/HCC) Other hyperlipidemia Chronic constipation Chronic allergic rhinitis RUQ pain Healthcare maintenance Expected: 09/01/2024 (Approximate), Expires: 09/01/2025 Hepatitis C Antibody with Reflex to HCV, RNA, Quantitative, Real-Time PCR Lab Routine Type 2 diabetes mellitus without complication, without long-term current use of insulin (CMS/HCC) Other hyperlipidemia Chronic constipation Chronic allergic rhinitis RUQ pain Healthcare maintenance Expected: 09/01/2024, Expires: 09/01/2025 RPR (Monitor) with Reflex to??Titer Lab Routine Type 2 diabetes mellitus without complication, without long-term current use of insulin (CMS/HCC) Other hyperlipidemia Chronic constipation Chronic allergic rhinitis RUQ pain Healthcare maintenance Expected: 09/01/2024, Expires: 09/01/2025 Hepatitis B Surface Antibody, Qualitative Lab Routine Type 2 diabetes mellitus without complication, without long-term current use of insulin (CMS/HCC) Other hyperlipidemia Chronic constipation Chronic allergic rhinitis RUQ pain Healthcare maintenance Expected: 09/01/2024 (Approximate), Expires: 09/01/2025 US Abdomen Complete Imaging Routine RUQ pain Expected: 09/01/2024, Expires: 09/01/2025 documented as of this encounter Goals Goal Patient Goal Type Associated Problems Recent Progress Patient-Stated? Author Hemoglobin A1c < 7 Result Component 6.3( 9:12 AM EST) No Alvin Caldera PharmD Record your blood sugar as directed Result Component No Antoinette Liu PharmD Note: Encouraged patient to increase frequency of SMBG monitoring to guide tx modification. documented as of this encounter Procedures Procedure Name Priority Date/Time Associated Diagnosis Comments POCT GLYCATED HEMOGLOBIN, TOTAL Routine 09/01/2024 9:12 AM EST Type 2 diabetes mellitus without complication, without long-term current use of insulin ([facility]) POCT GLUCOSE Routine 09/01/2024 9:10 AM EST Type 2 diabetes mellitus without complication, without long-term current use of insulin (CMS/HCC) documented in this encounter Results * (ABNORMAL) POCT HGB A1C (09/01/2024 9:12 AM EST) Hemoglobin A1C 6.3(A) 4.0 - 6.0 % QC Media Lot # [id number] Lot# Expiration Date Blood 09/01/2024 9:12 AM EST Casie Angulo DO POINT OF CARE TEST ENTER/ANASTASIYA T ORDERABLES Final Result * POCT Glucose (09/01/2024 9:10 AM EST) Glucose Blood, POC 134 60 - 200 mg/dL QC Media Lot # [id number] Lot# Expiration Date ,025 Blood Capillary blood specimen / Unknown 09/01/2024 9:10 AM EST Casie Angulo DO POINT OF CARE TEST ENTER/ANASTASIYA T ORDERABLES Final Result documented in this encounter Visit Diagnoses Diagnosis Type 2 diabetes mellitus without complication, without long-term current use of insulin ([facility])- Primary Other hyperlipidemia Chronic constipation Unspecified constipation Chronic allergic rhinitis RUQ pain Abdominal pain, right upper quadrant Healthcare maintenance documented in this encounter Additional Health Concerns Assessment Noted Time PHQ-9 Depression Total Score: 8 11/19/19 24 9:38 AM EDT documented as of this encounter Care Teams Mechanical Drafter Relationship Specialty Start Date End Date Casie Angulo DO [address] [place] [address] PCP - General Family Medicine 08/25/18 Antoinette Liu PharmD [address] [place] [address] Pharmacist Internal Medicine 05/01/23 documented as of this encounter
--- OUTSIDE RECORDS SUMMARY | 2024-09-25 06:03 | XMS_ITS | Encounter Summary ---
Author Organization [employer] Address [address] [place] [address] [address] [place] [address] Care Team Providers Care Survey Statistician Name Role Phone Casie Angulo DO Primary Care Provider [phone] Antoinette Liu PharmD Unavailable [phone] Reason for Visit * Reason Onset Date Comments Results 06/10/2023 Encounter Details Date Type Department Care Team ([facility] st Contact Info) Description 06/10/2023 Telephone [facility] [address] [place], [place] [phone] Casie Angulo DO [address] [place], [place] [phone] Results Social History Tobacco Use Types Packs/Day Years [...] encounter Miscellaneous Notes * Telephone Encounter - Angie Rosales - 06/10/2023 2:36 PM EDT Tc from pt requesting lab results, pt was seen on 06/03/23 @ [facility]. Please contact at [phone] documented in this encounter Plan of Treatment Upcoming Encounters Date Type Department Care Team (Late st Contact Info) Description 09/27/2024 12:00 PM EST Office Visit [facility] [address] [place] [address] Casie Angulo DO [address] [place] [address] 10/04/2024 10:00 AM EST Office Visit [facility] [address] [place] [address] Nicole Lozano DDS [address] [place] [address] 10/04/2024 1:30 PM EST Office Visit [facility] [address] [place] [address] Trevon Adkins DDS [address] [place] [address] 10/14/2024 9:00 AM EST Office Visit [facility] [address] [place] [address] Liya Rachel [address] [place] [address] documented as of this encounter Goals Goal [...] documented as of this encounter Care Teams Survey Statistician Relationship Specialty Start Date End Date Casie Angulo DO [address] [place] [address] PCP - General Family Medicine 08/25/18 Antoinette Liu PharmD [address] [place] [address] Pharmacist Internal Medicine 05/01/23 documented as of this encounter
--- OUTSIDE RECORDS SUMMARY | 2024-09-25 06:03 | XMS_ITS | Encounter Summary ---
Author Organization [employer] Address [address] [place] [address] [address] [place] [address] Care Team Providers Care Coater Smoking Pipe Name Role Phone JefersonCasie martins Primary Care Provider [phone] Antoinette Liu PharmD Unavailable [phone] Encounter Details Date Type Department Care Team (Latest Contact Info) Description 09/01/2024 Travel Social History Tobacco Use Types Packs/Day Years [...] AM EDT documented as of this encounter Plan of Treatment Upcoming Encounters Date Type Department Care Team (Late st Contact Info) Description 09/27/2024 12:00 PM EST Office Visit [facility] [address] [place] [address] Casie Angulo DO [address] [place] [address] 10/04/2024 10:00 AM EST Office Visit [facility] [address] [facility] [place] [address] Nicole Lozano, DDS [address] [place] [address] 10/04/2024 1:30 PM EST Office Visit [facility] [address] [place] [address] Trevon Adkins, DDS [address] [place] [address] 10/14/2024 9:00 AM EST Office Visit [facility] [address] [place] [address] Cesar Rachelaris [address] [place] [address] documented as of this encounter Goals Goal Patient Goal Type Associated Problems Recent Progress Patient-Stated? Author Hemoglobin A1c < 7 Result Component 6.3( 9:12 AM EST) No Alvin Caldera, Torri Record your blood sugar as directed Result Component No Antoinette Liu PharmD Note: Encouraged patient to increase frequency of SMBG monitoring to guide tx modification. documented as of this encounter Visit Diagnoses Not on filedocumented in this encounter Additional Health Concerns Assessment Noted Time PHQ-9 Depression Total Score: 8 11/19/19 24 9:38 AM EDT documented as of this encounter Care Teams Coater Smoking Pipe Relationship Specialty Start Date End Date Casie Angulo DO [address] [place] [address] PCP - General Family Medicine 08/25/18 Antoinette Liu PharmD [address] [place] [address] Pharmacist Internal Medicine 05/01/23 documented as of this encounter
--- OUTSIDE RECORDS SUMMARY | 2024-09-25 06:03 | XMS_ITS | Clinical Summary ---
Author Organization [employer] Address [address] [place] [address] [address] [place] [address] Care Team Providers Care Websphere Process Server Developer Name Role Phone Casie Angulo Primary Care Provider Antoinette Liu PharmD Unavailable Allergies No known active allergies Medications Blood Glucose Monitoring Suppl (FreeStyle Lite) w/Device kit USE TO CHECK BLOOD GLUCOSE 2 TIMES EVERY DAY 06/19/20 22 Active Linzess 290 MCG capsule TAKE 1 CAPSULE (290 MCG ) BY MOUTH EVERY MORNING 11/27/19 23 Active Bisacodyl EC 5 MG EC tablet Take 10 mg by mouth at bedtime. 04/09/20 23 Active loratadine (Claritin) 10 MG tablet Take 1 tablet (10 mg) by mouth in the morning. 30 tablet 11/20/19 24 025 Active FreeStyle lancetsIndicati ons:Type 2 diabetes mellitus without complication, without long-term current use of insulin ([facility]) 1 each by Other route 2 times daily. USE TWICE DAILY 100 each 03/12/20 24 Active glucose blood (FREESTYLE LITE) test stripIndication s:Type 2 diabetes mellitus without complication, without long-term current use of insulin ([facility]) USE TO TEST TWICE A DAY 100 strip 03/12/20 24 Active UltiCare Alcohol Swabs 70 % padsIndications :Type 2 diabetes mellitus without complication, without long-term current use of insulin ([facility]) USE 1 SWAB TOPICALLY 2 TIMES EVERY DAY 100 each 03/12/20 24 Active cholecalciferol (Vitamin D-3) 50 MCG (1999 UT) capsuleIndicati ons:Vitamin D deficiency Take 1 capsule (50 mcg) by mouth Once per day. 30 capsule 11 03/15/20 24 Active Varenicline Tartrate, Starter, (Chantix Starting Month ) 0.5 MG X 11 & 1 MG X 42 tablet therapy packIndications :Tobacco dependence Take 0.5 mg by mouth Once per day for 3 days, THEN 0.5 mg 2 times daily for 4 days, THEN 1 mg 2 times daily. Take after meals with a full glass of water.. 53 each 06/04/20 24 Active varenicline (Chantix) 1 MG tabletIndicatio ns:Tobacco dependence Take 1 tablet (1 mg) by mouth 2 times daily. Take after meals with a full glass of water. 60 tablet 4 06/04/20 24 Active acetaminophen (Tylenol) 500 MG tablet Take 2 tablets (1,000 mg) by mouth every 6 (six) hours if needed for moderate pain or fever for up to 25 doses. 50 tablet 06/16/20 24 Active polycarbophil (Fibercon) 625 MG tablet Take 1 tablet (625 mg) by mouth 2 times daily. 180 tablet 3 09/01/19 25 026 Active Tirzepatide (Mounjaro) 5 MG/0.5ML solution auto-injector Inject 5 mg under the skin 1 (one) time per week. 07/30/20 24 Active docusate sodium (Colace) 100 MG capsule Take 100 mg by mouth at bedtime. 08/06/20 22 025 Discontinued(Me d list cleanup (will not trigger notification to Pharmacy)) Tirzepatide (Mounjaro) 5 MG/0.5ML solution pen-injectorInd ications:Type 2 diabetes mellitus without complication, without long-term current use of insulin ([facility]) Inject 5 mg under the skin 1 (one) time per week. 2 mL 11 03/12/20 24 025 Discontinued(Me d list cleanup (will not trigger notification to Pharmacy)) lidocaine (Lidoderm) 5 % patchIndication s:Chest pain, unspecified type Apply 1 patch topically Once per day. Remove & discard patch within 12 hours or as directed by MD. 30 patch 2 05/04/20 24 025 Discontinued(Me d list cleanup (will not trigger notification to Pharmacy)) amoxicillin (Amoxil) 500 MG capsule Take 1 capsule (500 mg) by mouth every 8 (eight) hours for 7 days. 21 capsule 09/09/19 25 025 ibuprofen 600 MG tablet Take 1 tablet (600 mg) by mouth 3 times daily for 10 days. 30 tablet 09/09/19 25 025 Active Problems Problem Noted Date Diagnosed Date Missing teeth, acquired 04/07/2024 Gingivitis due to dental avis que with local contributing factor 03/10/2024 Dental caries 03/10/2024 Pelvic congestion syndrome 10/16/2023 Assessment & Plan (10/16/2023 9:35 AM EST): Seen on CT scan Pt to take motrin daily 1 wk AC menstrual period, FU w/ PCP Chronic migraine 10/01/2023 History of depression 12/18/2022 Hyperlipidemia 12/18/2022 Chronic constipation 12/18/2022 Irritable bowel syndrome 12/18/2022 Type 2 diabetes mellitus 11/27/2022 History of COVID-19 08/03/2022 Overview (11/27/2022): Problem added by Discern Expert BMI 35.0-35.9,adult 07/25/2015 Tobacco dependence 07/25/2015 Resolved Problems Problem Noted Date Diagnosed Date Resolved Date Neuropathy 01/28/2024 02/23/2024 Left upper quadrant abdominal pain 10/16/2023 11/19/2023 Assessment & Plan (10/16/2023 9:35 AM EST): May be related to constipation/IBS. Unclear if exacerbated by meds like metformin and Trulicity. Given worsening of Sx I advised pt to come get examined today at [facility] Will repeat labs due to Hx of leukocytosis and r/o UA Recommended to hold Metformin x 2 days and see if Sx improved Unclear if related to pelvic congestion syndrome Recommend to be seen in the [facility] due to nasal congestion and other Sx, may needs to be tested for viral diseases, ei. covid and flu Acute frontal sinusitis 06/03/2023 02/0 02/2024 Low-lying placenta 11/27/2022 3 AMA (advanced maternal age) multigravida 35+ 3 11/27/2022 Depression 10/16/2022 12/18/2022 Smoker 10/16/2022 11/27/2022 Body aches 07/29/2018 11/27/2022 Alopecia 07/25/2015 12/18/2022 Chronic migraine 07/25/2015 10/01/2023 Encounters Date Type Department Care Team Description 09/24/[address] [address] Casie Angulo DO chart prep 09/24/2024 Telephone [facility] [address] [place] [address] Casie Angulo DO Nurse Triage 09/13/2024 Orders Only GENERIC EXTERNAL DATA DEPARTMENT Provider, Generic External Data 09/09/2024 9:30 AM EST Office Visit [facility] ADULT D[facility]AL [address] [place] [address] Nicole Lozano DDS 09/01/2024 9:00 AM EST Office Visit [facility] [address] [place] [address] Casie Angulo DO Type 2 diabetes mellitus without complication, without long-term current use of insulin (CMS/HCC) (Primary Dx); Other hyperlipidemia; Chronic constipation; Chronic allergic rhinitis; RUQ pain; Healthcare maintenance 09/01/2024 Travel 08/24/2024 Patient Outreach [address] [address] Casie Angulo DO Pre-visit Planning ([facility] screening is completed) 08/12/2024 Orders Only GENERIC EXTERNAL DATA DEPARTMENT Provider, Generic External Data 08/10/[address] [address] Chase Jones [place] August07/04/2024 Orders Only [address] [address] Casie Angulo DO Type 2 diabetes mellitus without complication, without long-term current use of insulin (CMS/HCC) (Primary Dx) from Last 3 Months Immunizations Name Administration Dates Next Due DTaP 08/25/1997 Hep B, adult 11/28/2023(Deferred: No longer needed - Immune per titers 06/28/22.),06/26/2001,07/18/1998 Influenza, IIV3, injectable 06/30/2019 MMR 02/20/1995 OPV 08/25/1997 Pfizer Covid-19 Vaccine 12+ 11/30/2021 Pneumococcal Conjugate PCV 20 06/04/2024 Tdap 04/16/2019,07/04/2010 Varicella 01/23/1990 Family History Medical History Relation Name Comments Coronary artery disease Father Diabetes Father Hyperlipidemia Father Hypertension Father No Known Problems Father's Sister No Known Problems Maternal Grandfather No Known Problems Maternal Grandmother Diabetes Mother Hypertension Mother Stroke Mother Breast cancer Mother's Sister Kidney disease Nephew Asthma Sister Relation Name Status Comments Father Father's Sister Maternal Grandfather Maternal Grandmother Mother Mother's Sister Nephew Other Sister Social History Tobacco Use Types Packs/Day Years Used Date Smoking Tobacco: Every Day Cigarettes Smokeless Tobacco: Never Tobacco Cessation:Ready to Q uit: Not Asked; Counseling Given: Not Answered Alcohol Use Standard Drinks/Week Comments Never 0 (1 standard drink = 0.6 oz pur e alcohol) Depression Answer Date Recorded Patient Health Questionnaire-9 Score 8 11/19/2023 Patient Health Questionnaire-9 Score 8 11/19/2023 Last PHQ-9: Questionnaire Data Not on file 0 11/19/2023 Housing Stability Answer Date Recorded What is your housing situation today? I have brynnbuddy boyle 11/19/[address] you [...] Orientation Straight 06/24/2022 10 :15 AM EDT Last Filed Vital Signs Vital Sign Reading Time Taken Comments Blood Pressure 116/66 09/09/2024 9:28 AM EST Pulse 86 09/01/2024 9:07 AM EST Temperature 36.2 ??C (97.1 ??F) 09/01/2024 9:07 AM ES T Respiratory Rate 20 09/01/2024 9:07 AM EST Oxygen Saturation 97% 06/16/2024 8:45 AM EDT Inhaled Oxygen Concentration - - Weight 98.9 kg (218 lb) 09/01/2024 9:07 AM EST Height 170.2 cm (5' 7 ) 09/01/2024 9:07 AM EST Body Mass Index 34.14 09/01/2024 9:07 AM EST Plan of Treatment Upcoming Encounters Date Type Department Care Team (Late st Contact Info) Description 09/27/2024 12:00 PM EST Office Visit [facility] [address] [place] [address] Caise Angulo DO [address] [place] [address] 10/04/2024 10:00 AM EST Office Visit [facility] ADULT DENTAL [address] [place] [address] Nicole Lozano, DDS [address] [place] [address] 10/04/2024 1:30 PM EST Office Visit [facility] ADULT DENT[facility] [address] [place] [address] Trevon Adkins, DDS [address] [place] [address] 10/14/2024 9:00 AM EST Office Visit [facility] ADULT DENT[facility] [address] [place] [address] Cesar Rachelaris [address] [place] [address] Health Maintenance Due Date Last Done Comments Diabetes: Foot Exam 1993 IPV Vaccines (2 of 3 - 4-dose series) 09/22/1997 08/25/1997 Family Planning (PISQ) 1998 Hepatitis A Vaccines (1 of 2 - Risk 2-dose series) 2002 Mammogram 2023 Diabetes: Urine Protein Screening 06/28/2023 06/28/2022, 01/23/2021 COVID-19 Vaccine ( season) 2024 11/30/2021, 07/02/2021, 06/11/2021 Influenza Vaccine (#1) 2024 06/30/2019 Lipid Panel 09/19/2024 09/19/2023, 05/25, 06/28/2022, Additional history exists Dental Oral Exam 10/09/2024 04/07/2024 Dental Prophylaxis 10/09/2024 04/07/2024 Depression Screening 11/18/2024 11/19/2023, 11/19/19 SDOH Screening 11/18/2024 11/19/2023 Diabetes: Hemoglobin A1C 03/01/2025 025, 06/04/2024, 02/23/2024, Additional history exists Dental X-Ray: Bitewings 04/08/2025 04/07/2024 Alcohol/Substance Use Screening 09/01/2025 09/01/2024 Tobacco Screening 09/01/2025 09/01/2024 Eye Exam 02/15/2026 02/16/2024, 01/24, 02/16/2024, Additional history exists Pap Smear 04/14/2026 04/14/2023, 04/0 11/2021, 01/04/2019 Dental X-Ray: Full Mouth 04/08/2027 04/07/2024, 02/22 Cervical Cancer Screening 04/14/2028 HPV/Cotest 04/14/2028 04/14/2023, 11/2021, 01/04/2019 DTaP/Tdap/Td Vaccines (4 - Td or Tdap) 04/16/2029 04/16/2019, 07/04/2010, 08/25/1997 Zoster Vaccines (1 of 2) 2033 RSV Patients and Patients Aged 60 years or older (1 - 1-dose 75+ series) 2058 Hepatitis B Vaccines Discontinued 06/26/2001, 07/18/19 98 HIV Screening Completed 09/19/2023, 11/2021, 01/23/2021 Hepatitis C Screening Completed 09/19/2023 , 06/28/2022, 01/23/2021 Pneumococcal Vaccine: Pediatrics (0 to 5 Years) and At-Risk Patients (6 to 49) Years) Completed 06/04/2024 HIB Vaccines Aged Out No longer eligi ble based on patient's age to complete this topic HPV Vaccines Aged Out No longer eligi ble based on patient's age to complete this topic Meningococcal Vaccine Aged Out No [place] eligible based on patient's age to complete this topic RSV under 20 months Aged Out No longe r eligible based on patient's age to complete this topic Rotavirus Vaccines Aged Out No longer eligible based on patient's age to complete this topic Goals Goal Patient Goal Type Associated Problems Recent Progress Patient-Stated? Author Hemoglobin A1c < 7 Result Component 6.3( 9:12 AM EST) No Alvin Caldera PharmMerissa Record your blood sugar as directed Result Component No Antoinette Liu PharmD Note: Encouraged patient to increase frequency of SMBG monitoring to guide tx modification. Procedures Procedure Name Priority Date/Time Associated Diagnosis Comments US ABDOMEN LIMITED Routine 09/13/2024 1: 10 PM EST HIGH SENSITIVITY TROPONIN I Routine 09/13/2024 12:34 PM EST HCG, TOTAL, QN Routine 09/13/2024 12:34 PM EST LIPASE Routine 09/13/2024 12:34 PM EST MAGNESIUM Routine 09/13/2024 12:34 PM EST BASIC METABOLIC PANEL Routine 09/13/2024 12:34 PM EST HEPATIC FUNCTION PANEL Routine 09/13/2024 12:34 PM EST CBC WITH AUTO DIFFERENTIAL Routine 09/13/2024 12:34 PM EST SARS COV2/INFLUENZA A/B AND RSV RNA QL NAAT Routine 09/13/2024 12:34 PM EST 3 EXTRACTION, ERUPTED TOOTH OR EXPOSED ROOT (ELEVATION AND/OR FORCEPS REMOVAL) Routine 09/09/2024 9:30 AM EST POCT GLYCATED HEMOGLOBIN, TOTAL Routine 09/01/2024 9:12 AM EST Type 2 diabetes mellitus without complication, without long-term current use of insulin (CMS/HCC) POCT GLUCOSE Routine 09/01/2024 9:10 AM EST Type 2 diabetes mellitus without complication, without long-term current use of insulin (CMS/HCC) HEMATOXYLIN AND EOSIN STAIN Routine 08/12/2024 9:29 AM EST GLUCOSE, WHOLE BLOOD Routine 08/12/2024 9:03 AM EST HCG, QL, URINE Routine 08/12/2024 8:37 AM EST PROPHYLAXIS - ADULT Routine 04/07/2024 1 0:00 AM EDT Gingivitis due to dental plaque with local contributing factor DIAGNOSTIC - DIAGNOSTIC IMAGING - INTRAORAL - COMPREHENSIVE SERIES OF RADIOGRAPHIC IMAGES Routine 04/07/2024 10:00 AM EDT Gingivitis due to dental plaque with local contributing factor Dental caries Missing teeth, acquired PERIODIC ORAL EVALUATION - ESTABLISHED PATIENT Routine 04/07/2024 10:00 AM EDT HEPATITIS C AB W/REFL TO HCV RNA, QN, PCR Routine 09/19/2023 9:58 AM EST Neck fullness HIV 1/2 ANTIGEN/ANTIBODY, FOURTH GENERATION W/RFL Routine 09/19/2023 9:58 AM EST Neck fullness LIPID PANEL, STANDARD Routine 09/19/2023 9:58 AM EST Neck fullness HM PAP/HPV Routine 04/14/2023 ALBUMIN, RANDOM URINE W/CREATININE Routine 06/28/2022 1:38 PM EDT from Last 3 Months or Most Recently Relevant to Health Maintenance Results * US Abdomen Limited (09/13/2024 1:10 PM EST) Anatomical Region Laterality Modality Abdomen Ultrasound 09/13/2024 1:10 PM EST Narrative 09/13/2024 1:34 PM EST ? [facility] ?[address] ?[place] [address] ? Ultrasound Report ? Signed ? Patient: Casie Maki ?MR#: [id number] ?? [id number] ? : 1985 ?Acct:[id number] ? Age/Sex: 39 / F ?ADM Date: 09/13/24 ? Loc: HO.ED ? Attending Dr: ? Ordering Physician: Jania Velázquez ?? Date of Service: 09/13/24 ?? Procedure(s): US abdomen limited ?? Accession Number(s): [id number] ? cc: Casei Angulo DO; Jania Velázquez ? EXAMINATION: ??US ABDOMEN LIMITED ? HISTORY: epigastric pain, RUQ pain ? TECHNIQUE: Real-time grayscale ultrasound imaging of the right upper ?? quadrant was performed and images were reviewed. ? COMPARISON: Correlation is made with an unenhanced CT of the abdomen ?? dated 05/04/2024. ? FINDINGS: ?? Liver: The liver is normal in size and demonstrates homogeneous ?? echotexture. ?No focal mass or intrahepatic biliary ductal dilatation ?? is identified. ? Gallbladder and biliary tree: The gallbladder is unremarkable, without ?? evidence of calculi, wall thickening, or pericholecystic fluid. ??There ?? is no sonographic Nath sign. ??The common bile duct is normal in ?? caliber measuring 3 mm. ? Right Kidney: ??The right kidney measures 10.6 cm in length. ??The right ?? kidney is unremarkable, without evidence of masses, hydronephrosis, or ?? calculi. ? Pancreas: The pancreatic head, neck, and body are unremarkable. The ?? pancreatic tail is obscured by bowel gas. ? Abdominal aorta and inferior vena cava: The visualized portions of the ?? abdominal aorta and inferior vena cava are normal in caliber. ? There is no free fluid in the right upper quadrant. ? US/US abdomen limited ?? IMPRESSION: ? Unremarkable right upper quadrant ultrasound. ? Electronically signed by: ??Hernandez Walsh MD ??09/13/2024 01:31 PM EST ? Dictated By: ?Hernandez Walsh MD ? Signed By: ?<Electronically signed by Hernandez Walsh MD in OV> ?09/13/24 1331 ? DD/ 1310 ? TD/TT: 09/13/24 1326 ? 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 Procedure Note Donerikpawangabriele, Image - 09/13/2024 [place] [id number] Ultrasound Report Signed Patient: Matt Maki#: [id number] : 1985Acct:[id number] Age/Sex: 39 / FADM Date: 09/13/24 Loc: HO.ED Attending Dr: Ordering Physician: Jania Velázquez Date of Service: 09/13/24 Procedure(s): US abdomen limited Accession Number(s): [id number] cc: StellarodyCasie Parker DO; Jania Velázquez EXAMINATION: US ABDOMEN LIMITED HISTORY: epigastric pain, RUQ pain TECHNIQUE: Real-time grayscale ultrasound imaging of the right upper quadrant was performed and images were reviewed. COMPARISON: Correlation is made with an unenhanced CT of the abdomen dated 05/04/2024. FINDINGS: Liver: The liver is normal in size and demonstrates homogeneous echotexture. No focal mass or intrahepatic biliary ductal dilatation is identified. Gallbladder and biliary tree: The gallbladder is unremarkable, without evidence of calculi, wall thickening, or pericholecystic fluid. There is no sonographic Nath sign. The common bile duct is normal in caliber measuring 3 mm. Right Kidney: The right kidney measures 10.6 cm in length. The right kidney is unremarkable, without evidence of masses, hydronephrosis, or calculi. Pancreas: The pancreatic head, neck, and body are unremarkable. The pancreatic tail is obscured by bowel gas. Abdominal aorta and inferior vena cava: The visualized portions of the abdominal aorta and inferior vena cava are normal in caliber. There is no free fluid in the right upper quadrant. US/US abdomen limited IMPRESSION: Unremarkable right upper quadrant ultrasound. Electronically signed by: Hernandez Walsh MD 09/13/2024 01:31 PM EST Dictated By: Hernandez Walsh MD Signed By: <Electronically signed by Hernandez Walsh MD in OV> 09/13/24 1331 DD/ 1310 TD/TT: 09/13/24 1326 Electric [employer] Rebuilder: us [facility] External Provider IMG US PROCEDURES Final Result * High Sensitivity Troponin I (09/13/2024 12:34 PM EST) [facility] TROPONIN I HIGH SENSITIVITY <2.7 <3.5 - 17.0 ng/L [facility] Comment:The [facility] high sens itivity Troponin-I results should beused in conjunction with other diagnostic information suchas ECG, clinical observations and information, and patientsymptoms to aid in the diagnosis of ID. 09/13/2024 12:3 4 PM EST 09/13/2024 12:41 PM EST Generic External Data Provider LAB BLOOD ORDERAB LES Final Result [facility] [address] [place] [phone] * SARS-CoV-2 RNA, Influenza A/B, and RSV RNA, Ql NAAT (09/13/2024 12:34 PM EST) Influenza A PCR NEGATIVE Negative [facility] Influenza B PCR NEGATIVE Negative [facility] Resp Syncy Virus RNA Qual PCR NEGATIVE Negative [facility] SARS COV2 PCR NEGATIVE Negative [facility] Comment:All test results mus t be correlated with clinical findings.Negative results do not preclude SARS-CoV2, influenza Avirus, influenza B virus and/or RSV infectionand should not be used as the sole basis for treatment orother patient management decisions. Negative results must becombined with clinical observations, patient history, andepidemiological information.This test has not been evaluated for monitoring treatment ofinfection.This test has been authorized by the FDA under an EmergencyUse Authorization (EUA) for use by authorized laboratories.Testing performed on the [employer]pert utilizingreal-time RT-PCR.All SARS CoV2 and positive influenza A/B results arereported to [facility]. 09/13/2024 12:3 4 PM EST 09/13/2024 12:41 PM EST us Generic External Data Provider LAB MICROBIOLOGY - GENERAL ORDERABLES Final Result [facility] [address] [place] [phone] * (ABNORMAL) CBC auto differential (09/13/2024 12:34 PM EST) White Blood Count 8.2 4.8 - 10.8 X10*3/uL [facility] Red Blood Count 4.27 4.20 - 5.50 X10*6/uL [facility] Hemoglobin 13.0 12.0 - 16.0 g/dl [facility] Hematocrit 38.4 37.0 - 47.0 % [facility] Mean Corpuscular Volume 89.9 80.0 - 98.0 fL [facility] Mean Corpuscular Hemoglobin 30.4 27.0 - 33.0 pg [facility] Mean Corpuscular HGB Conc 33.9 31.0 - 35.0 g/dl [facility] Red Cell Distribution Width 13.2 11.0 - 16.0 % [facility] Platelet Count 370 160 - 400 X10*3/uL [facility] Mean Platelet Volume 8.8(L) 9.4 - 12.3 fL [facility] Neutrophils Percent Auto 59.1 45 - 73 % [facility] Imm Gran Pct Auto 0.2 0.0 - 0.4 % [facility] Lymphocytes Percent Auto 34.6 20 - 40 % [facility] Monocytes Percent Auto 4.9 2 - 11 % [facility] Eosinophils Percent Auto 0.8 0 - 4 % [facility] Basophils Percent Auto 0.4 0 - 2 % [facility] NRBC Pct Auto 0.0 0.0 - 0.2 /100WBC [facility] Neutrophils Absolute Auto 4.9 2.0 - 8.3 x10*3/uL [facility] Imm Gran Abs Auto 0.02 0.00 - 0.03 X10*3/uL [facility] Lymphocytes Absolute Auto 2.9 1.2 - 4.9 X10*3/uL [facility] Monocytes Absolute Auto 0.4 0.1 - 1.2 X10*3/uL [facility] Eosinophils Absolute Auto 0.1 0.0 - 0.4 X10*3/uL [facility] Basophils Absolute Auto 0.0 0.0 - 0.2 X10*3/uL [facility] NRBC Abs Auto 0.000 0.0 - 0.012 X10*3/uL [facility] 09/13/2024 12:3 4 PM EST 09/13/2024 12:41 PM EST us Generic External Data Provider LAB BLOOD ORDERAB LES Final Result [facility] [address] [place] [phone] [phone] * hCG, Total, Quantitative (09/13/2024 12:34 PM EST) HCG Quantitative <2 mIU/mL [facility] Comment:Weeks post LMP Appro ximate hCG(Last Menstrual Period) Range (mIU/ml)3 - 4 weeks 9 - 1304 - 5 weeks 75 - 2,6005 - 6 weeks 850 - 20,8006 - 7 weeks 4000 - 100,2007 - 12 weeks 11,500 - 289,41414 - 16 weeks 18,300 - 137,58456 - 29 weeks (2nd trimester) 1,400 - 53,72644 - 41 weeks (3rd trimester) 940 - 60,000The [facility] B- hCG assay is used for the early detection ofpregnancy; it cannot be used to diagnose any conditionunrelated to . If a B-hCG level is not supportedby the clinical evidence, results should be confirmed by analternative method (qualitative urine hCG, for example). 09/13/2024 12:3 4 PM EST 09/13/2024 12:41 PM EST Generic External Data Provider LAB BLOOD ORDERAB LES Final Result Performing Organization Address [facility] Co de Phone Number [facility] [address] [place] [phone] * Magnesium (09/13/2024 12:34 PM EST) Magnesium 2.0 1.6 - 2.6 mg/dL [facility] 09/13/2024 12:3 4 PM EST 09/13/2024 12:41 PM EST Generic External Data Provider LAB BLOOD ORDERAB LES Final Result Performing Organization Address [facility] Co de Phone Number [facility] [address] [place] [phone] * Lipase (09/13/2024 12:34 PM EST) Lipase 19 8 - 78 U/L [facility] 09/13/2024 12:3 4 PM EST 09/13/2024 12:41 PM EST Generic External Data Provider LAB BLOOD ORDERAB LES Final Result Performing Organization Address [facility] Co de Phone Number [facility] [address] [place] [phone] * (ABNORMAL) Hepatic Function Panel (09/13/2024 12:34 PM EST) Bilirubin, Total 0.5 0.0 - 1.0 mg/dL [facility] Bilirubin, Direct 0.1 0.0 - 0.5 mg/dL [facility] Aspartate Amino Transferase 28 5 - 31 U/L [facility] Alanine Aminotransferase 45(H) 0 - 31 U/L [facility] Total Protein 7.9 6.5 - 8.0 g/dL [facility] Albumin Level 4.3 3.5 - 5.0 g/dL [facility] Alkaline Phosphatase 83 39 - 117 U/L [facility] 09/13/2024 12:3 4 PM EST 09/13/2024 12:41 PM EST us Generic External Data Provider LAB BLOOD ORDERAB LES Final Result Performing Organization Address [facility] [facility] Co de Phone Number [facility] [address] [place] [phone] * Basic Metabolic Panel (09/13/2024 12:34 PM EST) Sodium 140 135 - 145 mmol/L [facility] Potassium 3.9 3.3 - 5.1 mmol/L [facility] Chloride 107 96 - 108 mmol/L [facility] Carbon Dioxide 23 22 - 29 mmol/L [facility] Anion Gap 14 12 - 20 [facility] Urea Nitrogen (BUN) 12 9 - 16 mg/dL [facility] Creatinine, Serum 0.61 0.5 - 1.4 mg/dL [facility] Creatinine Clr Calc Pharmacy 142.9 [facility] Comment:Provided height and weight: 170.18 cm,94.1 kg.eGFR (calculated from the MDRD study equation) and eCrCl(calculated from the Cockcroft-Gault equation) are based ondifferent parameters and may not yield comparable results.If eCrCl result is absurd, please check patient'sheight/weight. Estimated Glomerular Filt Rate >60 [facility] Comment:Chronic Kidney Disea se: Estimated GFR < 60 mL/min/1.80j7Woaxvr Kidney Disease: Estimated GFR < 15 mL/min/1.73m2 Glucose 87 60 - 115 mg/dL [facility] Calcium 8.9 8.4 - 10.2 mg/dL [facility] 09/13/2024 12:3 4 PM EST 09/13/2024 12:41 PM EST Generic External Data Provider LAB BLOOD ORDERAB LES Final Result [facility] [address] [place] [phone] * (ABNORMAL) POCT HGB A1C (09/01/2024 9:12 AM EST) Hemoglobin A1C 6.3(A) 4.0 - 6.0 % QC Media Lot # [id number] Lot# Expiration Date ,026 Blood 09/01/2024 9:12 AM EST Casie Angulo DO POINT OF CARE TEST ENTER/ANASTASIYA T ORDERABLES Final Result * POCT Glucose (09/01/2024 9:10 AM EST) Glucose Blood, POC 134 60 - 200 mg/dL QC Media Lot # [id number] Lot# Expiration Date [id number] Blood Capillary blood specimen / Unknown 09/01/2024 9:10 AM EST Casie Angulo DO POINT OF CARE TEST ENTER/ANASTASIYA T ORDERABLES Final Result * Hematoxylin and Eosin Stain (08/12/2024 9:29 AM EST) 08/12/2024 9:29 AM EST 08/12/2024 10:30 AM EST Narrative [facility] - 08/13/2024 2:33 PM EST ----- ------- Name: Casie Maki ? Age/Sex: 39/F ? : 1985 Unit#: [id number] ?? Attend Dr: Deepali Lr MD ?Re08/12/24 ?Status: DEP SDC ? Location: HO.SSS ?Disch: ? ----- ------- SPEC : [id number] ? RECD: 08/12/24-0 ? STATUS: ??SOUT ? REQ NUM: [id number] ? DAVID: 08/12/24-928 ? SUBM DR: Deepali Lr MD ? ENTERED: ??08/12/24-3 ?SP TYPE: Surgical ? OTHR DR: Casie Angulo DO ? ORDERED: ??HE Stain/6, Gross Micro L4/2 ? Diagnosis ?? A. ??Colon, right, biopsy: ??Colonic mucosa within normal limits. ? B. ??Colon, left, biopsy: ??Colonic mucosa with prominent reactive appearing lymphoid ?? aggregate; otherwise within normal limits. ?Clinical History Pre-Op Dx: ??Left lower quadrant pain Post-Op Dx: Hemorrhoids ?Microscopic Description A, B. ??Microscopic sections reviewed. ? Material Received ?? A. Right side colon bx ?? B. Left colon bx ? Gross Description Received in two parts. Part A: ??Received in formalin labeled ?right side colon bx? are 3 matute-charles irregular and rectangular tissue fragments ranging from 0.1-0.3 cm, submitted in toto in a cassette labeled A. Part B: ??Received in formalin labeled ?left colon bx? are 4 pale, matute-white and charles irregular tissue fragments ranging from minute to 0.2 cm, submitted in toto in a cassette labeled B. CEDS Copies To: ?? Casie Angulo DO ?? [facility] ?? [address] ?? [place] [address] ?? [phone] ? CONTINUED ON NEXT PAGE ----- ------- Name: Casie Maki ? Age/Sex: 39/F ? : 1985 Unit#: [id number] ?? Attend Dr: Deepali Lr MD ?Re08/12/24 ?Status: DEP SDC ? Location: HO.SSS ?Disch: ? ----- ------- SPEC : [id number] ? RECD: 08/12/24 ? STATUS: ??SOUT ? REQ NUM: [id number] ? DAVID: 08/12/24 ? SUBM DR: Deepali Lr MD ? ENTERED: ??08/12/24 ?SP TYPE: Surgical ? OTHR DR: Casie Angulo DO ? ORDERED: ??HE Stain/6, Gross Micro L4/2 ? Copies To: ??(Continued) ?? Deepali Lr MD ?? [facility] ?? [address] ?? [place] [address] ?? [phone] ?? [email or web address] ----- ------- Signed (signature on file) Christ Méndez MD 08/13/24 4733 ? ----- ------- ? END OF REPORT ? us Generic External Data Provider LAB BLOOD ORDERAB LES Final Result [facility] [address] [place] [address] [phone] * Glucose, Whole Blood (08/12/2024 9:03 AM EST) Pathologist [facility] Glucose, Whole Blood 108 60 - 115 mg/dL [facility] Comment:METER #: [id number] 08/12/2024 9:03 AM EST 08/12/2024 9:06 AM EST us Generic External Data Provider LAB BLOOD ORDERAB LES Final Result Performing Organization Address [facility] Co de Phone Number [facility] [address] [place] [phone] * HCG, Qualitative, Urine (08/12/2024 8:37 AM EST) Pathologist [facility] Urine NEGATIVE NEGATIVE [facility] Comment:This test was develo ped to detect early . Falsenegative results may occur after the 5th - 7th week ofpregnancy when using this test method. If clinicallyindicated, consider a serum hCG. 08/12/2024 8:37 AM EST 08/12/2024 8:54 AM EST us Generic External Data Provider LAB URINE ORDERAB LES Final Result Performing Organization Address [facility] Co de Phone Number [facility] [address] [place] [address] [phone] * Hepatitis C Antibody with Reflex to HCV, RNA, Quantitative, Real-Time PCR (09/19/2023 9:58 AM EST) [facility] Hepatitis C Antibody Nonreactive Nonreactive [facility] Comment:Antibodies to HCV no t detected; does not exclude early acuteHCV infection. Blood Venous blood specimen / Unknown 09/19/2023 9:58 AM EST 09/19/2023 11:11 AM EST us Casie Angulo DO LAB BLOOD ORDERABLES Final R esult Performing Organization Address [facility] Co de Phone Number [facility] [address] [place] [phone] * HIV-1/2 Antigen and Antibodies, Fourth Generation, with Reflexes (09/19/2023 9:58 AM EST) Pathologist [facility] HIV AB/AG Nonreactive Nonreactive [facility] Comment:HIV-1 p24 Ag and/or HIV-1/HIV-2 Ab not detected.A test result that is nonreactive does not exclude thepossibility of exposure to or infection with HIV-1 and/orHIV-2. Nonreactive results in this assay for individualswith prior exposure to HIV-1 and/or HIV-2 may be due toantigen and antibody levels that are below the limit ofdetection of this assay.The [employer] HIV Ag/Ab Combo assay result andsupplemental assay results should be interpreted inconjunction with the patient's clinical presentation,history and other laboratory results. If the results areinconsistent with clinical evidence, additional testing issuggested to confirm the result. Blood Venous blood specimen / Unknown 09/19/2023 9:58 AM EST 09/19/2023 11:11 AM EST us Casie Angulo DO LAB BLOOD ORDERABLES Final R esult [facility] [address] [place] [address] [phone] * Lipid Panel, Standard (09/19/2023 9:58 AM EST) Triglycerides 112 <150 mg/dL [facility] Comment:Desirable Triglyceri de: less than 150 mg/dLBorderline High Triglyceride 150-199 mg/dLHigh Triglyceride: 200-499 mg/dLVery High Triglyceride: greater than or equal to 5OO mg/dL Cholesterol 154 <200 mg/dL [facility] Comment:Desirable Cholestero l: less than 200 mg/dLBorderline High Cholesterol: 200-239 mg/dLHigh Cholesterol: greater than 239 mg/dL LDL Cholesterol Calculated 90 <100 mg/dL [facility] Comment:Desirable LDL: less than 100 mg/dLNear Optimal/Above Optimal LDL: 110- 129 mg/dLBorderline High LDL: 130-159 mg/dLHigh LDL: 160-189 mg/dLVery High LDL: greater than or equal to 190 mg/dL HDL Cholesterol 42 >40 mg/dL [facility] Comment:Desirable HDL: great er than 40 mg/dL Note: This HDL assay may give artificially low results in patients with liver disease. Blood Venous blood specimen / Unknown 09/19/2023 9:58 AM EST 09/19/2023 11:24 AM EST Casie Angulo DO LAB BLOOD ORDERABLES Final R esult [facility] [address] [place] [phone] * Pap Smear (04/14/2023) Pap Negative for intraephithelial lesion or malignancy Negative for intraephithelial lesion or malignancy, Other HPV Not Detected Undetected, Indeterminate, Quantitative, Not Detected Historical Provider MD HEALTH MAINTENANCE Final Result * ALBUMIN, RANDOM URINE W/CREATININE (06/28/2022 1:38 PM EDT) Microalbumin Urine 0.3 See Note: mg/dL [facility] Comment: Reference Range: ?? Reference Range Not established Microalb/Creat Ratio 2 <30 mcg/mg creat [facility] Comment: ?? The ADA defines abnormalities in albumin excretion as follows: ?? Albuminuria Category ?Result (mcg/mg creatinine) ?? Normal to Mildly increased ?? <30 Moderately increased ? 30-299 ?? Severely increased ? > OR = 300 ?? The ADA recommends that at least two of three specimens collected within a 3-6 month period be abnormal before considering a patient to be within a diagnostic category. Creatinine, Urine 153 20 - 275 mg/dL [facility] 06/28/2022 1:38 PM EDT Casie Angulo DO LAB URINE ORDERABLES Final R esult [facility] from Last 3 Months or Most Recently Relevant to Health Maintenance Insurance [facility] D[facility] - HSN FULL (MEDICAID) Care Teams [employer] Process Server Developer Relationship Specialty Start Date End Date Casie Angulo DO [address] [place] [phone] PCP - General Family Medicine 08/25/18 Antoinette Liu, PharmD [address] [place] [phone] Pharmacist Internal Medicine 05/01/23
--- OUTSIDE RECORDS SUMMARY | 2024-09-25 06:03 | XMS_ITS | Encounter Summary ---
Author Organization [employer] Address [address] [place] [address] 7 [place] [address] Care Team Providers Care Veterinary Receptionist Name Role Phone Casie Angulo DO Primary Care Provider [phone] Alvin Caldera PharmD Unavailable Unavail able Antoinette Liu PharmD Unavailable [phone] Encounter Details Date Type Department Care Team (Late st Contact Info) Description 09/19/2022 Orders Only [facility] MED[facility] [address] [place] [phone] Whitney James LPN Social History Tobacco Use Types Packs/Day Years Used Date Smoking Tobacco: Every Day Cigarettes Smokeless Tobacco: Never Comments Unknown Sex and Gender Information Value Date Recorded Sex Assigned at Female 06/24/2022 10:15 AM EDT Legal Sex Female 10:15 AM EDT Gender Identity Female 06/24/2022 10:15 AM EDT Sexual Orientation Straight 06/24/2022 10 :15 AM EDT documented as of this encounter Plan of Treatment Upcoming Encounters Date Type Department Care Team (Late st Contact Info) Description 09/27/2024 12:00 PM EST Office Visit [facility] MEDICINE [address] [place] [phone] Casie Angulo DO [address] [place] [address] 10/04/2024 10:00 AM EST Office Visit [facility] ADULT DENTAL [address] [place] [address] Nicole Lozano DDS [address] [place] [address] 10/04/2024 1:30 PM EST Office Visit [facility] ADULT DENTAL [address] [place] [address] Trevon Adkins DDS [address] [place] [address] 10/14/2024 9:00 AM EST Office Visit [facility] ADULT DENTAL [address] [place] [address] Liya Rachel [address] [place] [address] documented as of this encounter Visit Diagnoses Not on filedocumented in this encounter Care Teams Veterinary Receptionist Relationship Specialty Start Date End Date Casie Angulo DO [address] [place] [phone] PCP - General Family Medicine 08/25/18 Alvin Caldera, PharmD [address] [place] [address] Pharmacist Internal Medicine 12/10/22 04/30/23 Antoinette Liu PharmD [address] [place] [phone] Pharmacist Internal Medicine 05/01/23 documented as of this encounter
--- OUTSIDE RECORDS SUMMARY | 2024-09-25 06:03 | XMS_ITS | Encounter Summary ---
Author Organization [employer] Address [address] [place] [address] 7[address] [place] [address] Care Team Providers Care Unit Reactor Operator Name Role Phone Casie Angulo Primary Care Provider [phone] Antoinette Liu PharmD Unavailable Encounter Details Date Type Department Care Team (Late st Contact Info) Description 09/13/2024 Orders Only GENERIC EXTERNAL DATA DEPARTMENT Provider, Generic External Data Social History Tobacco Use Types Packs/Day Years [...] Description 09/27/2024 12:00 PM EST Office Visit [facility] MED[facility] [address] [place] [address] Casie Angulo DO [address] [place] [address] 10/04/2024 10:00 AM EST Office Visit [facility] ADULT DENTAL [address] [facility] [place] [address] Nicole Lozano, DDS [address] [place] [address] 10/04/2024 1:30 PM EST Office Visit [facility] ADULT DENTAL [address] [place] [address] Trevon Adkins, DDS [address] [place] [address] 10/14/2024 9:00 AM EST Office Visit [facility] ADULT DENTAL [address] [place] [address] Cesar Rachelaris [address] [place] [address] documented as of this encounter Goals Goal [...] TROPONIN I Routine 09/13/2024 12:34 PM EST SARS COV2/INFLUENZA A/B AND RSV RNA QL NAAT Routine 09/13/2024 12:34 PM EST CBC WITH AUTO DIFFERENTIAL Routine 09/13/2024 12:34 PM EST HCG, TOTAL, QN Routine 09/13/2024 12:34 PM EST MAGNESIUM Routine 09/13/2024 12:34 PM EST LIPASE Routine 09/13/2024 12:34 PM EST HEPATIC FUNCTION PANEL Routine 09/13/2024 12:34 PM EST BASIC METABOLIC PANEL Routine 09/13/2024 12:34 PM EST documented in this encounter Results * US Abdomen Limited (09/13/2024 1:10 PM EST) Anatomical Region Laterality Modality Abdomen Ultrasound 09/13/2024 1:10 PM EST Narrative 09/13/2024 1:34 PM EST ? [facility] ?[address] ?[place] [address] ? Ultrasound Report ? Signed ? Patient: Maki,Casie ?MR#: [id number] ?? [id number] ? : 1985 ?Acct:[id number] ? Age/Sex: 39 / F ?ADM Date: 01/20/25 ? Loc: HO.ED ? Attending Dr: ? Ordering Physician: Jania Velázquez ?? Date of Service: 09/13/24 ?? Procedure(s): US abdomen limited ?? Accession Number(s): [id number] ? cc: Casie Angulo DO; Jania Velázquez ? EXAMINATION: ??US [...] pericholecystic fluid. ??There ?? is no sonographic Anth sign. ??The common bile duct is normal [...] ??Hernandez Walsh MD ??09/13/2024 01:31 PM EST ?? RP ? Dictated By: ?Hernandez Walsh MD ? Signed By: ?<Electronically signed by Hernandez Walsh MD in OV> ?09/13/24 1331 ? DD/ 1310 ? TD/TT: 09/13/24 1326 ? Groundskeeping Yardman: ? Procedure Note Nicholas, Image - 09/13/[address] [address] Ultrasound Report Signed Patient: Matt Maki#: [id number] : 1985Acct:[id number] Age/Sex: 39 / FADM Date: 09/13/24 Loc: HO.ED Attending Dr: Ordering Physician: Jania Velázquez Date of Service: 09/13/24 Procedure(s): US abdomen limited Accession Number(s): [id number] cc: Casie Angulo DO; Jania Velázquez EXAMINATION: US ABDOMEN LIMITED [...] 09/13/24 1331 DD/ 1310 TD/TT: 09/13/24 1326 Groundskeeping Yardman: [facility] External Provider IMG US PROCEDURES Final Result * SARS-CoV-2 RNA, Influenza A/B, and RSV RNA, Ql NAAT (09/13/2024 12:34 PM EST) Influenza A PCR NEGATIVE Negative [facility] Influenza B PCR NEGATIVE Negative [facility] Resp Syncy Virus RNA Qual PCR NEGATIVE Negative [facility] SARS COV2 PCR NEGATIVE Negative [facility] Comment:All test results mus [...] use by authorized laboratories.Testing performed on the Tempo AI GeneXpert utilizingreal-time RT-PCR.All SARS CoV2 and positive influenza A/B results arereported to [facility]. 09/13/2024 12:3 4 PM EST 09/13/2024 12:41 PM EST Generic External Data Provider LAB MICROBIOLOGY - GENERAL ORDERABLES Final Result Performing Organization Address [facility]/ZIP Co de Phone Number [facility] [address] [place] [phone] * High Sensitivity Troponin I (09/13/2024 12:34 PM EST) Pathologist [facility] TROPONIN I HIGH SENSITIVITY <2.7 <3.5 - 17.0 ng/L [facility] Comment:The [place] high sens itivity Troponin-I results should beused in conjunction with other diagnostic information suchas ECG, clinical observations and information, and patientsymptoms to aid in the diagnosis of MT. 09/13/2024 12:3 4 PM EST 09/13/2024 12:41 PM EST Generic External Data Provider LAB BLOOD ORDERAB LES Final Result Performing Organization Address [facility] Co de Phone Number [facility] [address] [place] [phone] * hCG, Total, Quantitative (09/13/2024 12:34 PM EST) HCG Quantitative <2 mIU/mL [facility] Comment:Weeks post LMP Appro ximate hCG(Last Menstrual Period) Range (mIU/ml)3 - 4 weeks 9 - 1304 - 5 weeks 75 - 2,6005 - 6 weeks 850 - 20,8006 - 7 weeks 4000 - 100,2007 - 12 weeks 11,500 - 289,47617 - 16 weeks 18,300 - 137,01273 - 29 weeks (2nd trimester) 1,400 - 53,03646 - 41 weeks (3rd trimester) 940 - [...] ORDERAB LES Final Result Performing Organization Address [facility] Co de Phone Number [facility] [address] [place] [phone] * Lipase (09/13/2024 12:34 PM EST) Lipase 19 8 - 78 U/L [facility] 09/13/2024 12:3 4 PM EST 09/13/2024 12:41 PM EST Generic External Data Provider LAB BLOOD ORDERAB LES Final Result Performing Organization Address [facility] Co de Phone Number [facility] [address] [place] [phone] * Magnesium (09/13/2024 12:34 PM EST) Magnesium 2.0 1.6 - 2.6 mg/dL [facility] 09/13/2024 12:3 4 PM EST 09/13/2024 12:41 PM EST Generic External Data Provider LAB BLOOD ORDERAB LES Final Result Performing Organization Address [facility]/ZIP Co de Phone Number [facility] [address] [place] [address] [phone] * Basic Metabolic Panel (09/13/2024 12:34 PM EST) Sodium 140 135 - 145 mmol/L [facility] Potassium 3.9 3.3 - 5.1 mmol/L [facility] Chloride 107 96 - 108 mmol/L [facility] Carbon Dioxide 23 22 - 29 mmol/L [facility] Anion Gap 14 12 - 20 [facility] Urea Nitrogen (BUN) 12 9 - 16 mg/dL [facility] Creatinine, Serum 0.61 0.5 - 1.4 mg/dL [facility] Creatinine Clr Calc Pharmacy 142.9 [facility] Comment:Provided height and weight: 170.18 cm,94.1 kg.eGFR (calculated from the MDRD study equation) and eCrCl(calculated from the Cockcroft-Gault equation) are based ondifferent parameters and may not yield comparable results.If eCrCl result is absurd, please check patient'sheight/weight. Estimated Glomerular Filt Rate >60 [facility] Comment:Chronic Kidney Disea se: Estimated GFR < 60 mL/min/1.23t9Poxsus Kidney Disease: Estimated GFR < 15 mL/min/1.73m2 Glucose 87 60 - 115 mg/dL [facility] Calcium 8.9 8.4 - 10.2 mg/dL [facility] 09/13/2024 12:3 4 PM EST 09/13/2024 12:41 PM EST us Generic External Data Provider LAB BLOOD ORDERAB LES Final Result Performing Organization Address City/[facility]/ZIP Co de Phone Number [facility] [address] [place] [address] [phone] * (ABNORMAL) Hepatic Function Panel (09/13/2024 12:34 PM EST) Bilirubin, Total 0.5 0.0 - 1.0 mg/dL [facility] Bilirubin, Direct 0.1 0.0 - 0.5 mg/dL [facility] Aspartate Amino Transferase 28 5 - 31 U/L [facility] Alanine Aminotransferase 45(H) 0 - 31 U/L [facility] Total Protein 7.9 6.5 - 8.0 g/dL [facility] Albumin Level 4.3 3.5 - 5.0 g/dL [facility] Alkaline Phosphatase 83 39 - 117 U/L [facility] 09/13/2024 12:3 4 PM EST 09/13/2024 12:41 PM EST us Generic External Data Provider LAB BLOOD ORDERAB LES Final Result [facility] [address] [place] [address] [phone] * (ABNORMAL) CBC auto differential (09/13/2024 12:34 PM EST) White Blood Count 8.2 4.8 - 10.8 X10*3/uL [facility] Red Blood Count 4.27 4.20 - 5.50 X10*6/uL [facility] Hemoglobin 13.0 12.0 - 16.0 g/dl [facility] Hematocrit 38.4 37.0 - 47.0 % [facility] Mean Corpuscular Volume 89.9 80.0 - 98.0 fL [facility] Mean Corpuscular Hemoglobin 30.4 27.0 - 33.0 pg [facility] Mean Corpuscular HGB Conc 33.9 31.0 - 35.0 g/dl [facility] Red Cell Distribution Width 13.2 11.0 - 16.0 % [facility] Platelet Count 370 160 - 400 X10*3/uL [facility] Mean Platelet Volume 8.8(L) 9.4 - 12.3 fL [facility] Neutrophils Percent Auto 59.1 45 - 73 % [facility] Imm Gran Pct Auto 0.2 0.0 - 0.4 % [facility] Lymphocytes Percent Auto 34.6 20 - 40 % [facility] Monocytes Percent Auto 4.9 2 - 11 % [facility] Eosinophils Percent Auto 0.8 0 - 4 % [facility] Basophils Percent Auto 0.4 0 - 2 % [facility] NRBC Pct Auto 0.0 0.0 - 0.2 /100WBC [facility] Neutrophils Absolute Auto 4.9 2.0 - 8.3 x10*3/uL [facility] Imm Gran Abs Auto 0.02 0.00 - 0.03 X10*3/uL [facility] Lymphocytes Absolute Auto 2.9 1.2 - 4.9 X10*3/uL [facility] Monocytes Absolute Auto 0.4 0.1 - 1.2 X10*3/uL [facility] Eosinophils Absolute Auto 0.1 0.0 - 0.4 X10*3/uL [facility] Basophils Absolute Auto 0.0 0.0 - 0.2 X10*3/uL [facility] NRBC Abs Auto 0.000 0.0 - 0.012 X10*3/uL [facility] 09/13/2024 12:3 4 PM EST 09/13/2024 12:41 PM EST us Generic External Data Provider LAB BLOOD ORDERAB LES Final Result Performing Organization Address City/State/[facility] Co de Phone Number [facility] [address] [place] [address] [phone] documented in this encounter Visit Diagnoses Not on filedocumented in this encounter Additional Health Concerns Assessment Noted Time PHQ-9 Depression Total Score: 8 11/19/19 24 9:38 AM EDT documented as of this encounter Care Teams Unit Reactor Operator Relationship Specialty Start Date End Date Casie Angulo DO [address] [place] [address] PCP - General Family Medicine 08/25/18 Antoinette Liu PharmD [address] [place] [address] Pharmacist Internal Medicine 05/01/23 documented as of this encounter
--- OUTSIDE RECORDS SUMMARY | 2024-09-25 06:03 | XMS_ITS | Encounter Summary ---
Author Organization [employer] Address [address] [place] [address] 7t [place] [address] Care Team Providers Care Note Taker Name Role Phone Casie Angulo Primary Care Provider +1- [phone] Antoinette Liu PharmD Unavailable Reason for Visit * Reason Comments Dental Pain Encounter Details Date Type Department Care Team ([facility] Contact Info) Description 09/09/2024 9:30 AM EST Office Visit [facility] ADULT DENTAL [address] [place] [address] Nicole Lozano DDS [address] [place] [address] Social History Tobacco Use Types Packs/Day Years [...] your housing situation today? I have brynn sing 11/19/[address] you li [...] Pressure 116/66 09/09/2024 9:28 AM EST Pulse - - Temperature - - Respiratory Rate - - Oxygen Saturation - - Inhaled Oxygen Concentration - - Weight - - Height - - Body Mass Index - - documented in this encounter Progress Notes * Nicole Lozano DDS - 09/09/2024 9:30 AM EST Dental procedures in this visit D7140 - EXTRACTION, ERUPTED TOOTH OR EXPOSED ROOT (ELEVATION AND/OR FORCEPS REMOVAL) 3 (Completed) Service provider: Nicole Lozano DDS Billing provider: Adrián Stephenson DDS Patient ID: Casie Maki is a 39 y.o. female. Time Out: Date: 09/09/2024 Location: [facility] Tooth: #3 Procedure: Extraction Verified the above with patient, graphic design assistant, and provider. Confirmed via patient's chart, intraorally and by radiographs. Loan Counselor: not applicable Simple Extraction of # [address] [place] [address] Dr[address] Nicole Lozano DDS Risk, benefits, and alternatives discussed with the patient. CONSENT FORM INITIALED & SIGNED BY THE PATIENT AND COUNTERSIGNED BY Dr. Nicole Lozano DDS Medical history: Reviewed in EHR Vitals: Blood pressure 116/66, last menstrual period 07/31/2024. Allergies: Reviewed in EHR Medications: Reviewed in EHR - LA: 20% topical benzocaine; local infiltration with 1 carpule 4% septocaine/articaine 1:100,000 epinephrine - Gingival fibers using periosteal elevator. - Tooth luxated using straight elevator. - Tooth extracted usin - Curettage done. - Area checked for sharp bony edges / filing of sharp bony edges done. - Irrigation done using Periogard. - Hemostasis achieved before dismissal. Patient comfortable to walk. - Gauze pack placed. - post op instructions (written + verbal), extra pack of gauze given. - Rx: amoxicillin 500mg x7day TID Ibuprofen 600mg [id number] TID Patient satisfied, left in stable condition NV: caries control/Rct #4 Provider: Dr. Nicole Lozano DDS Shield Installer: Christiano Stoddard Supervising Dentist: Dr. Stephenson * Adrián Stephenson DDS - 09/09/2024 9:30 AM EST Reviewed and signed. documented in this encounter Plan of Treatment Upcoming Encounters Date Type Department Care Team (Late st Contact Info) Description 09/27/2024 12:00 PM EST Office Visit [facility] MED[facility] [address] [place] [address] Casie Angulo DO [address] [place] [address] 10/04/2024 10:00 AM EST Office Visit [facility] ADULT DENTAL [address] [place] [address] Nicole Lozano DDS [address] [place] [address] 10/04/2024 1:30 PM EST Office Visit [facility] ADULT DENTAL [address] [place] [address] Trevon Adkins DDS [address] [place] [address] 10/14/2024 9:00 AM EST Office Visit [facility] ADULT DENTAL [address] [place] [address] Liya Rachel [address] [place] [address] Scheduled Orders Name Type Priority Associated Diagnoses Orde r Schedule 4 4 ENDODONTICS - ENDODONTIC THERAPY (INCLUDING TREATMENT PLAN, CLINICAL PROCEDURES AND FOLLOW-UP CARE) - ENDODONTIC THERAPY, PREMOLAR TOOTH (EXCLUDING FINAL BUDDHIST) Dental Routine 1 Occurrence s starting 09/09/2024 4 MO 4 MO RESTORATIVE - RESIN-BASED COMPOSITE RESTORATIONS - DIRECT - RESIN-BASED COMPOSITE - TWO SURFACES, POSTERIOR Dental Routine 1 Occur rences starting 09/09/2024 documented as of this encounter Goals Goal [...] Procedure Name Priority Date/Time Associated Diagnosis Comments 3 EXTRACTION, ERUPTED TOOTH OR EXPOSED ROOT (ELEVATION AND/OR FORCEPS REMOVAL) Routine 09/09/2024 9:30 AM EST documented in this encounter Visit Diagnoses Not on filedocumented in this encounter Additional Health Concerns Assessment Noted Time PHQ-9 Depression Total Score: 8 11/19/19 24 9:38 AM EDT documented as of this encounter Care Teams Note Taker Relationship Specialty Start Date End Date Casie Angulo DO [address] [place] [address] PCP - General Family Medicine 08/25/18 Antoinette Liu PharmD [address] [place] [address] Pharmacist Internal Medicine 05/01/23 documented as of this encounter
--- OUTSIDE RECORDS SUMMARY | 2024-09-25 06:03 | XMS_ITS | Encounter Summary ---
Author Organization [employer] Address [address] [place] [address] 7[address] [place] [address] Care Team Providers Care Correctional Corporal Name Role Phone Casie Angulo DO Primary Care Provider Antoinette Liu PharmD Unavailable Reason for Visit * Reason Onset Date Comments Nurse Triage 09/24/2024 Encounter Details Date Type Department Care Team ([facility] st Contact Info) Description 09/24/2024 Telephone [facility] [address] [place], [place] [phone] Casie Angulo DO [address] [place], [place] [phone] Nurse Triage Social History Tobacco Use Types [...] encounter Miscellaneous Notes * Telephone Encounter - Lakesha Driver RN - 09/24/2024 9:42 AM EST called pt to triage, spoke to pt. pt states has history of constipation and is having persistent episodes. pt states had a small BM today and has not gone >3-4 days without a BM. pt states pressure when trying to have a BM and having to strain a lot. pt takes fiber medications which help some but not enough. pt has been on Maunjaro but stopped 2 weeks ago due to side effects. given appt with PC P Friday at 12:00 for exam. advised home care: rest, fluids, fiber, medications, and call back as needed. pt understands and agrees with plan. insurance verified. Protocol Used: Constipation (Adult) Protocol-Based Disposition: See in Office or Video Visit within 2 Weeks Video visit offer not recorded Positive Triage Question: * Constipation is a recurrent ongoing problem (i.e., < 3 BMs / week or straining > 25% of thetime) * All higher-acuity triage questions were negative Care Advice Discussed: * Reassurance and Education - Constipation * General Constipation Instructions * High Fiber Diet * Drink Adequate Liquids * Get Into a Rhythm * Reasons To Call Back - Constipation lasts more than 1 week after using Care Advice - Abdomen swelling, vomiting or fever occur - Constant or increasing abdomen pain - You think you need to be seen - You become worse * Telephone Encounter - Anita Coronado - 09/24/2024 9:13 AM EST Symptom: Constipation Outcome: Schedule an urgent appointment (within 1 hour) or talk to a nurse or provider soon Reason: Severe pain now The caller accepted this outcome. documented in this encounter Plan of Treatment Upcoming Encounters Date Type Department Care Team (Late st Contact Info) Description 09/27/2024 12:00 PM EST Office Visit [facility] [address] [place] [address] Casie Angulo DO [address] [place] [address] 10/04/2024 10:00 AM EST Office Visit [facility] ADULT DENTAL [address] [facility] [place] [address] Nicole Lozano, DDS [address] [place] [address] 10/04/2024 1:30 PM EST Office Visit [facility] ADULT DENTAL [address] [place] [address] Trevon Adkins, DDS [address] [place] [address] 10/14/2024 9:00 AM EST Office Visit [facility] ADULT DENTAL [address] [place] [address] Cesar Rachelaris [address] [place] [address] documented as of this encounter Goals Goal [...] documented as of this encounter Care Teams Correctional Corporal Relationship Specialty Start Date End Date Casie Angulo DO [address] [place] [address] PCP - General Family Medicine 08/25/18 Antoinette Liu PharmD [address] [place] [address] Pharmacist Internal Medicine 05/01/23 documented as of this encounter
--- OUTSIDE RECORDS SUMMARY | 2024-09-25 06:03 | XMS_ITS | Encounter Summary ---
Author Organization [employer] Address [address] [place] [address] [address]t [place] [address] Care Team Providers Care Seals Engraver Name Role Phone Casie Angulo DO Primary Care Provider +1- [phone] Antoinette Liu PharmD Unavailable Reason for Visit * Reason Onset Date Comments chart prep 09/24/2024 Encounter Details Date Type Department Care Team ([facility] st Contact Info) Description 09/24/2024 Telephone [facility] MEDICINE [address] [place], [place] [phone] Casie Angulo DO [address] [place], [place] [phone] chart prep Social History Tobacco Use Types Packs/Day Years [...] encounter Miscellaneous Notes * Telephone Encounter - Dora Moss MA - 09/24/2024 9:47 AM EST Chart Prep Labs: not done Images: done Vaccines due: yes Referrals: complete Screenings: mammogram Overdue care gaps: Glucose, SDOH, PHQ-9, Oral Health documented in this encounter Plan of Treatment Upcoming Encounters Date Type Department Care Team (Late st Contact Info) Description 09/27/2024 12:00 PM EST Office Visit [facility] MEDICINE [address] [place] [address] Casie Angulo DO [address] [place] [address] 10/04/2024 10:00 AM EST Office Visit [facility] ADULT DENTAL [address] [place] [address] Nicole Lozano DDS [address] [place] [address] 10/04/2024 1:30 PM EST Office Visit [facility] ADULT DENTAL [address] [place] [address] Trevon Adkins DDS [address] [place] [address] 10/14/2024 9:00 AM EST Office Visit [facility] ADULT DENTAL [address] [place], [place] [phone] Liya Rachel [address] [place] [address] documented as of this encounter Goals Goal [...] documented as of this encounter Care Teams Seals Engraver Relationship Specialty Start Date End Date Casie Angulo DO [address] [place] [phone] PCP - General Family Medicine 08/25/18 Antoinette Liu PharmD [address] [place] [address] Pharmacist Internal Medicine 05/01/23 documented as of this encounter
--- OUTSIDE RECORDS SUMMARY | 2024-09-25 06:03 | XMS_ITS | Encounter Summary ---
Author Organization [employer] Address [address] [place] [address] [address]t [place] [address] Care Team Providers Care Combination Machine Tool Setter Name Role Phone Casie Angulo DO Primary Care Provider +1- [phone] Alvin Caldera PharmD Unavailable Unavail able Antoinette Liu PharmD Unavailable Encounter Details Date Type Department Care Team (Late st Contact Info) Description 10/08/2022 Orders Only [facility] [address] [place] [address] Casie Pinedo LPN Social History Tobacco Use Types Packs/Day [...] Description 09/27/2024 12:00 PM EST Office Visit [facility] [address] [place] [address] Casie Angulo DO [address] [place] [address] 10/04/2024 10:00 AM EST Office Visit [facility] ADULT DENTAL [address] [place] [address] Nicole Lozano DDS [address] [place] [address] 10/04/2024 1:30 PM EST Office Visit [facility] ADULT DENTAL [address] [place] [address] Trevon Adkins DDS [address] [place] [address] 10/14/2024 9:00 AM EST Office Visit [facility] ADULT DENTAL [address] [place] [address] Liya Rachel [address] [place] [address] documented as of this encounter Visit Diagnoses Not on filedocumented in this encounter Care Teams Combination Machine Tool Setter Relationship Specialty Start Date End Date Casie Angulo DO [address] [place] [address] PCP - General Family Medicine 08/25/18 Alvin Caldera, PharmD [address] [place] [address] Pharmacist Internal Medicine 12/10/22 04/30/23 Antoinette Liu, BriandaD [address] [place] [address] Pharmacist Internal Medicine 05/01/23 documented as of this encounter
--- OUTSIDE RECORDS SUMMARY | 2024-09-25 06:03 | XMS_ITS | Encounter Summary ---
Author Organization [employer] Address [address] [place] [address] 7[address] [place] [address] Care Team Providers Care Handkerchief Presser Name Role Phone Casie Angulo DO Primary Care Provider +1- [phone] Alvin Caldera PharmD Unavailable Unavail able Antoinette Liu PharmD Unavailable Reason for Visit * Reason Comments Med Refill Encounter Details Date Type Department Care Team (Late st Contact Info) Description 10/23/2022 Refill [facility] [address] [place] [address] Casie Angulo DO [address] [place] [address] Muscle spasm Social History Tobacco Use Types Packs/Day Years Used Date Smoking Tobacco: Every Day Cigarettes Smokeless Tobacco: Never Comments No Sex and Gender Information Value Date Recorded Sex Assigned at Female 06/24/2022 10:15 AM EDT Legal Sex Female 10:15 AM EDT Gender Identity Female 06/24/2022 10:15 AM EDT Sexual Orientation Straight 06/24/2022 10 :15 AM EDT COVID-19 Exposure Response Date Recorded In the last 10 days, have yo u been in contact with someone who was confirmed or suspected to have Coronavirus/COVID-19? No / Unsure 10/16/2022 8:40 AM EST documented as of this encounter Plan of Treatment Upcoming Encounters Date Type Department Care Team (Late st Contact Info) Description 09/27/2024 12:00 PM EST Office Visit [facility] [address] [place] [address] Casie Angulo DO [address] [facility] [place] [address] 10/04/2024 10:00 AM EST Office Visit [facility] AD[facility] [address] [place] [address] Nicole Lozano, DDS 230 [facility] [place] [address] 10/04/2024 1:30 PM EST Office Visit [facility] ADULT D[facility] [address] [facility] [address] MichelleTrevon hill, DDS 230 [facility] [place] [address] 10/14/2024 9:00 AM EST Office Visit [facility] ADULT DENT[facility] 230 [facility] [place] [address] Liya Rachel [address] [facility] [place] [address] documented as of this encounter Visit Diagnoses Diagnosis Muscle spasm Spasm of muscle documented in this encounter Care Teams Handkerchief Presser Relationship Specialty Start Date End Date Casie Angulo DO [address] [place] [address] PCP - General Family Medicine 08/25/18 Alvin Caldera, BriandaD [address] [place] [address] Pharmacist Internal Medicine 12/10/22 04/30/23 Antoinette Liu PharmD [address] [place] [address] Pharmacist Internal Medicine 05/01/23 documented as of this encounter
--- NOTE | 2024-09-25 06:33 | ED.ABDPAIN ---
HPI - Abdominal Pain General Chief Complaint: Abdominal Pain Stated Complaint: stomach and back pain Time Seen by Provider: 09/25/24 06:33 Source: patient and RN notes reviewed Mode of arrival: ambulatory Limitations: no limitations History of Present Illness ED Provider: Jania Velázquez PA-C HPI narrative: This is a 39-year-old female, with a history of type 2 diabetes, who presents emergency department with concerns for ongoing diffuse abdominal pain and back pain for the last 2 weeks. Patient states that she has had a burning sensation noted throughout her entire abdomen. She states that the pain is constant however waxes and wanes in severity, notes that worsens after eating. She does report that she has had increased constipation over the last several weeks. She states that she stopped taking monjaro 2 weeks ago as she felt as though this was making her symptoms worse. She does report that she has had some constipation, has been taking [id number] agents with minimal relief. She has a primary care physician appointment on Friday. She denies any fevers, endorses chills. No chest pain or shortness of breath. No nausea. She does report slight dysuria. No urinary frequency, urgency. No recent travel, surgeries, hospitalizations. Denies any other complaints or concerns at this time. MD elicited complaint: abdominal pain and flank pain Pertinent past history: constipation Onset (ago): week(s) Pain Consistency: constant Location: diffuse Quality: burning Radiation: R flank Migration to: no migration Exacerbating factors: eating Relieving factors: nothing Associated symptoms: denies other symptoms Related Data Home Medications ?Medication ?Instructions ?Recorded ?Confirmed fluticasone propionate 50 2 spray intranasal DAILY 08/27/23 08/12/24 mcg/actuation nasal spray,suspension loratadine 10 mg tablet 10 mg PO QAM 03/30/24 08/12/24 cholecalciferol (vitamin D3) 50 50 mcg PO DAILY 06/18/24 08/12/24 mcg (2,000 unit) capsule lidocaine 5 % topical patch 1 patch topical DAILY 06/18/24 08/12/24 tirzepatide 5 mg/0.5 mL 5 mg subcut QWEEK 06/18/24 08/12/24 subcutaneous pen injector (Corie) Previous Rx's ?Medication ?Instructions ?Recorded ibuprofen 600 mg tablet 600 mg PO Q6H PRN pain #30 tabs 10/02/23 magnesium citrate (Citrate of 150 ml PO DAILY PRN constipation 03/30/24 Magnesia oral) #296 mL docusate sodium 100 mg capsule 200 mg (2 x 100 mg) PO BEDTIME 06/18/24 #180 caps hydrocortisone 2.5 % topical cream 1 appl RI BID-QID PRN hemorrhoids 06/18/24 with perineal applicator #30 grams (Proctosol HC) linaclotide 290 mcg capsule 290 mcg PO QAM #30 caps 08/03/24 (Linzess) polyethylene glycol 3350 17 17 g PO DAILY #510 grams 08/27/24 gram/dose oral powder (Miralax) aluminum-mag hydroxide-simethicone 5 ml PO QID PRN indigestion #300 mL 09/25/24 400 mg-400 mg-40 mg/5 mL oral susp (Maalox Maximum Strength) omeprazole 20 mg capsule,delayed 20 mg PO DAILY 4 weeks #28 caps 09/25/24 release Allergies Allergy/AdvReac Type Severity Reaction Status Date / Time No Known Allergies Allergy Mild NOT Verified 09/25/24 05:43 APPLICABLE Review of Systems Review of Systems Yes all other systems are reviewed and are negative Constitutional: Reports as per [facility] Past Medical History Medical History Diabetes Anal pain Constipation Hemorrhoids with complication Pelvic varices Surgical History History of hemorrhoidectomy Family History Family History Maternal Aunt Breast cancer in female Mother HTN (hypertension) Social History Social History Alcohol intake: former Patient Tobacco Use Status: Current everyday Tobacco user Tobacco use type: Cigarette Cigarette Packs Per Day: 0.5 Cigarettes Per Day: 10.0 Years Smoked: 16 Smoked in Last 30 Days: No Advance Directives: No Advance Directives Information Provided: No Do you have a plan to hurt others: No Plan Physical Exam ED Vital Signs: Vital Signs - 24 hr 09/25/24 05:38 09/25/24 05:54 Temperature 97.5 F 98 F Pulse Rate 85 86 Respiratory Rate 16 14 Blood Pressure 108/68 110/68 Pulse Oximetry 96 98 Oxygen Delivery Method Room Air Room Air BMI result Body Mass Index 33.5 Const General: cooperative, comfortable and no acute distress Orientation/consciousness: patient oriented x3 Limitations: no limitations HENMT Head: Yes normal to inspection, Yes normocephalic and Yes atraumatic Ears: hearing grossly normal bilaterally General nose exam: Normal external nose present Face and sinus: Yes normal facial exam Mouth: Normal oral and palatal mucosa present, oropharynx normal and moist mucous membranes Throat: Yes posterior oropharynx normal Eyes General: appearance normal, both eyes and all related structures Eyelids: Yes eyelids normal Conjunctivae: conjunctivae normal Sclerae: sclerae normal Pupils: Equal, round and reactive pupils present EOM: EOMs intact bilaterally Neck Neck: Yes normal visual inspection, Yes full ROM and Yes no lymphadenopathy Lymphatic: no lymphadenopathy noted Chest Chest palpation & inspection: normal inspection of the chest Resp Effort & Inspection: normal respiratory effort and able to speak in complete sentences Auscultation: clear to auscultation bilaterally, no crackles, no rales, no rhonchi and no wheezes Cardio Rate: regular rate Rhythm: regular rhythm Heart sounds: S1 normal heart sound present and S2 normal heart sound present GI Other: Normoactive bowel sounds present. Abdomen is soft, with diffuse tenderness throughout. Inspection: Yes normal to inspection General: Yes no CVA tenderness Back/Spine/Pelvis Back: no CVA tenderness Skin General skin exam: no rashes or lesions noted Trauma: no lacerations or abrasions Wounds: no wounds Neuro General: patient oriented x3 and moves all extremities Cranial nerves: Yes Equal, round and reactive pupils present Extrem General: Yes normal to inspection Right upper extremity: normal to inspection Left upper extremity: normal to inspection Right lower extremity: normal to inspection Left lower extremity: normal to inspection Course Reevaluation(s) Reevaluation #1: CT scan returns, revealing no acute findings. No evidence of biliary obstruction, bowel obstruction or obstructive uropathy. Appendix is not seen, no inflammatory changes in the right lower quadrant. Patient re-evaluated, feeling much better, symptoms have since resolved after receiving GI cocktail. Patient's symptoms likely gastritis in nature. Discussed overall workup today. Workup is reassuring. Patient has no leukocytosis, no significant electrolyte derangement. Normal EKG. She will follow-up with her PCP on Friday. She will also follow-up with GI specialist. Given strict return precautions. She understands agrees with plan. Patient stable for discharge. Time: 08:58 Medical Decision Making Medical Decision Making MDM Narrative: This is a 39-year-old female, with a history of type 2 diabetes, who presents emergency department with concerns for abdominal pain for the last several weeks. On arrival, vital signs within normal limits. Abdomen is soft, with diffuse tenderness throughout. She does endorse some constipation. She has been able to eat however states that her pain is exacerbated with eating. Describes his pain as a burning sensation. She was seen here in the emergency room several weeks ago where she obtained an ultrasound which was unremarkable, normal workup. She has an appointment with her primary care physician on Friday. During her previous ER visit, she did not have a CT scan, given ongoing pain, will obtain CT scan for further evaluation. She does also endorse constipation, has not fully moved her bowels in over a week. Differential diagnoses include gastritis, gastroenteritis, SBO, constipation. She has no abdominal surgical history. Plan: Labs, EKG, CT abdomen and pelvis, UA, will medicate with viscous lidocaine and Maalox Differential Diagnosis Differential Diagnoses: The differential diagnosis associated with the presentation includes See above Admission/Observation Consideration of admission/observation: Escalation of care including admission/observation considered Lab Data MDM Lab Attestation statement: I reviewed the patient's lab results. No leukocytosis, microcytic anemia with an H&H of 11.6/34.1, chemistry with no significant electrolyte derangement. Negative troponin, urine does not appear to be infected. Negative viral swabs. 09/25/24 06:53 09/25/24 06:53 Labs: Lab Results 09/25/24 09/25/24 Range/Units 06:53 08:06 WBC 7.6 (4.8-10.8) X10*3/uL RBC 3.79 L (4.20-5.50) X10*6/uL Hgb 11.6 L (12.0-16.0) g/dl Hct 34.1 L (37.0-47.0) % MCV 90.0 (80.0-98.0) fL MCH 30.6 (27.0-33.0) pg MCHC 34.0 (31.0-35.0) g/dl RDW 13.3 (11.0-16.0) % Plt Count 337 (160-400) X10*3/uL MPV 9.0 L (9.4-12.3) fL Immature Gran % (Auto) 0.4 (0.0-0.4) % Neut % (Auto) 66.6 (45-73) % Lymph % (Auto) 25.5 (20-40) % [place] % (Auto) 6.3 (2-11) % Eos % (Auto) 0.8 (0-4) % Baso % (Auto) 0.4 (0-2) % Lymph # (Auto) 1.9 (1.2-4.9) X10*3/uL [place] # (Auto) 0.5 (0.1-1.2) X10*3/uL Eos # (Auto) 0.1 (0.0-0.4) X10*3/uL Baso # (Auto) 0.0 (0.0-0.2) X10*3/uL Abs Immat Gran (auto) 0.03 (0.00-0.03) X10*3/uL Absolute Neuts (auto) 5.1 (2.0-8.3) x10*3/uL Absolute Nucleated RBC 0.000 (0.0-0.012) X10*3/uL Nucleated RBC % (auto) 0.0 (0.0-0.2) /100WBC Sodium 140 (135-145) mmol/L Potassium 4.0 (3.3-5.1) mmol/L Chloride 109 H (96-108) mmol/L Carbon Dioxide 25 (22-29) mmol/L Anion Gap 10 L (12-20) BUN 12 (9-16) mg/dL Creatinine 0.63 (0.5-1.4) mg/dL Estim Creat Clear Calc 140.6 Estimated GFR > 60 Random Glucose 111 (60-115) mg/dL Calcium 8.8 (8.4-10.2) mg/dL Magnesium 2.1 (1.6-2.6) mg/dL Total Bilirubin 0.7 (0.0-1.0) mg/dL Direct Bilirubin 0.2 (0.0-0.5) mg/dL AST 21 (5-31) U/L ALT 27 (0-31) U/L Alkaline Phosphatase 63 (39-117) U/L Troponin I High Sens < 2.7 (<3.5-17.0) ng/L Total Protein 6.7 (6.5-8.0) g/dL Albumin 3.8 (3.5-5.0) g/dL Lipase 17 (8-78) U/L Beta HCG, Quant < 2 mIU/mL Urine Color Yellow Urine Appearance Cloudy Urine pH 7.5 (5.0-9.0) Ur Specific [place] >= 1.030 H (1.005-1.025) Urine Protein Negative (Neg-Trace) mg/dL Urine Glucose (UA) Negative (Negative) mg/dL Urine Ketones Negative (Negative) mg/dL Urine Blood Negative (Negative) Urine Nitrite Negative (Negative) Ur Leukocyte Esterase Negative (Negative) Influenza Type A (PCR) NEGATIVE (Negative) Influenza Type B (PCR) NEGATIVE (Negative) RSV RNA Qual (PCR) NEGATIVE (Negative) SARS-CoV-2 RNA (RT-PCR) NEGATIVE (Negative) Independent Interpretation I performed an independent interpretation of an: EKG Interpretation: EKG normal sinus rhythm at a ventricular rate of 72 beats per minute, RI interval 180, QT QTC 392/429, no ST elevation or depression. Radiology Impression Discussion of test interpretation with radiology: I have reviewed the radiologist's reading. Radiologist Impression: CLINICAL HISTORY: diffuse abd pain, constipation, flank pain CT abdomen and pelvis with contrast Comparison: CT/RI/SR - CT ABDOMEN PELVIS W IV CON - 10/02/23 12:21 EST Findings: No consolidation or effusion. The gallbladder and solid organs are within normal limits. No renal stones. No bowel obstruction, pneumoperitoneum, or pneumatosis. Pelvic contents unremarkable. Appendix not definitively seen but there are no inflammatory changes in the region of the cecum. No adenopathy or fluid collections. Nonaneurysmal aorta. No acute fracture. IMPRESSION: No acute findings. No evidence of biliary obstruction, bowel obstruction or obstructive uropathy. Appendix not seen but there are no inflammatory changes in the right lower quadrant This document has been electronically signed by: Dayan Leblanc MD on 09/25/2024 08:38:29 Dictated By: Dayan Leblanc MD Medications Administered Discontinued Medications Generic Name Dose Route Start Last Admin Trade Name Freq PRN Reason Stop Dose Admin Al Hydroxide/Mg Hydroxide 30 ml 09/25/24 06:52 09/25/24 07:03 Magnesium Hydrox/Alum Hydrox 30 Ml Oral.Susp PO 09/25/24 06:53 30 ml ONCE ONE Administration Iohexol 85 ml 09/25/24 07:36 09/25/24 07:36 Iohexol 350 Mg/Ml 100 Ml Infus..Btl IV 09/25/24 07:37 85 ml ONCE ONE Administration Lidocaine HCl 15 ml 09/25/24 06:52 09/25/24 07:03 Lidocaine Hcl Viscous 2 % 15 Ml Solution MUCOUS MEM 09/25/24 06:53 15 ml ONCE ONE Administration Discharge Plan Discharge Clinical Impression: Abdominal pain, Gastritis Patient Disposition: Home, Self-Care Instructions: Gastritis (ED), Acute Abdominal Pain (ED) Additional Instructions: You were seen in the emergency department due to abdominal pain. Your CT scan was normal today. Please continue drinking plenty of fluids get plenty of rest. Your blood work was reassuring. You need follow-up with your primary care physician regarding this visit. You had good relief after being medicated with medication to help for gastritis, this may be the source severe pain. I am starting you on a medication called omeprazole. This helps lower the pH of your abdomen to prevent gastritis from happening. Omeprazole should be taken 1st thing in the morning before you eat breakfast. Wait about 30 minutes prior to eating. Avoid spicy or fried foods. Maalox can help for symptomatic relief. If any new or worsening symptoms occur including but not limited to worsening pain, chest pain, shortness of breath, please seek emergent care. Prescriptions: New omeprazole 20 mg capsule,delayed release(DR/EC) 20 mg PO DAILY 28 Days Qty: 28 0RF alum-mag hydroxide-simeth [Maalox Maximum Strength] 400-400-40 mg/5 mL suspension 5 ml PO QID PRN (Reason: indigestion) Qty: 300 0RF No Action Linzess 290 mcg capsule 290 mcg PO QAM Qty: 30 4RF ibuprofen 600 mg tablet 600 mg PO Q6H PRN (Reason: pain) Qty: 30 0RF fluticasone propionate 50 mcg/actuation spray,suspension 2 spray intranasal DAILY loratadine 10 mg tablet 10 mg PO QAM magnesium citrate [Citrate of Magnesia] Solution 150 ml PO DAILY PRN (Reason: constipation) Qty: 296 5RF Mounjaro 5 mg/0.5 mL pen injector 5 mg subcut QWEEK lidocaine 5 % adhesive patch,medicated 1 patch topical DAILY cholecalciferol (vitamin D3) 50 mcg (2,000 unit) capsule 50 mcg PO DAILY docusate sodium 100 mg capsule 200 mg PO BEDTIME Qty: 180 3RF hydrocortisone [Proctosol HC] 2.5 % cream with perineal applicator 1 appl RI BID-QID PRN (Reason: hemorrhoids) Qty: 30 2RF polyethylene glycol 3350 [Miralax] 17 gram/dose powder 17 g PO DAILY Qty: 510 2RF Print Language: Kazakh
--- NOTE | 2024-09-25 06:36 | ECG_ITS ---
Test Reason : EPIGASTRIC PAIN Blood Pressure : */* mmHG Vent. Rate : 72 BPM Atrial Rate : 72 BPM P-R Int : 180 ms QRS Dur : 94 ms QT Int : 392 ms P-R-T Axes : 11 30 32 degrees QTcB Int : 429 ms Normal sinus rhythm Normal ECG When compared with ECG of 13-Sep-2024 12:28, No significant change was found Referred By: Jania Velázquez Electronically Signed By: JOSUE BOLIVAR
[2024-09-25 06:57] LABS: MANUAL DIFF FLAG NO
[2024-09-25] MEDS: Magnesium Hydrox/Alum Hydrox 30 ML ORAL.SUSP PO (07:03)
[2024-09-25] MEDS: Lidocaine HCl Viscous 2 % 15 ML SOLUTION MUCOUS MEM (07:03)
--- NOTE | 2024-09-25 07:08 | PC.NURSE ---
a&ox4. vss and up to date. pt presents to the ED c/o diffuse abd pain x 3 weeks w/ associated nausea. pt reports sx more so epigastric that radiates to the right side. denies vomiting/diarrhea/fever/chills. pt reports decreased normal BMs. states that BMs are not as formed as usual. pt denies urinary sx. 20gIV placed in the left AC by previous RN. labs work obtained/sent to lab. pt aware UA is needed - specimen cup placed bedside for convenience. pt waiting to go to CT. plan of care ongoing. call placed within reach.
[2024-09-25 07:10] LABS: Basophils Percent Auto 0.4 % (0-2); Eosinophils Absolute Auto 0.1 X10*3/uL (0.0-0.4); Eosinophils Percent Auto 0.8 % (0-4); Hematocrit 34.1 % (37.0-47.0); Hemoglobin 11.6 g/dl (12.0-16.0); Imm Gran Abs Auto 0.03 X10*3/uL (0.00-0.03); Imm Gran Pct Auto 0.4 % (0.0-0.4); Lymphocytes Absolute Auto 1.9 X10*3/uL (1.2-4.9); Lymphocytes Percent Auto 25.5 % (20-40); Mean Corpuscular Hemoglobin 30.6 pg (27.0-33.0); Monocytes Absolute Auto 0.5 X10*3/uL (0.1-1.2); Monocytes Percent Auto 6.3 % (2-11); Neutrophils Absolute Auto 5.1 x10*3/uL (2.0-8.3); Neutrophils Percent Auto 66.6 % (45-73); Platelet Count 337 X10*3/uL (160-400); Red Blood Count 3.79 X10*6/uL (4.20-5.50); Red Cell Distribution Width 13.3 % (11.0-16.0); White Blood Count 7.6 X10*3/uL (4.8-10.8)
[2024-09-25 07:21] LABS: Alanine Aminotransferase 27 U/L (0-31); Albumin Level 3.8 g/dL (3.5-5.0); Alkaline Phosphatase 63 U/L (39-117); Anion Gap 10 (12-20); Aspartate Amino Transferase 21 U/L (5-31); Bilirubin Direct 0.2 mg/dL (0.0-0.5); Bilirubin Total 0.7 mg/dL (0.0-1.0); Blood Urea Nitrogen 12 mg/dL (9-16); Calcium 8.8 mg/dL (8.4-10.2); Carbon Dioxide 25 mmol/L (22-29); Chloride 109 mmol/L (96-108); Creatinine Clr Calc Pharmacy 140.6; Estimated Glomerular Filt Rate > 60; Glucose Random 111 mg/dL (60-115); Lipase 17 U/L (8-78); Magnesium 2.1 mg/dL (1.6-2.6); Sodium 140 mmol/L (135-145); Total Protein 6.7 g/dL (6.5-8.0)
[2024-09-25 07:24] LABS: HCG Quantitative < 2 mIU/mL; Troponin-I High Sensitivity < 2.7 ng/L (<3.5-17.0)
--- NOTE | 2024-09-25 07:31 | PC.NURSE ---
pt to CT at this time.
[2024-09-25] MEDS: iohexoL 350 MG/ML 100 ML INFUS..BTL 85 ML IV (07:36)
[2024-09-25 07:54] LABS: Influenza A PCR NEGATIVE (Negative); Influenza B PCR NEGATIVE (Negative); Resp Syncy Virus RNA Qual PCR NEGATIVE (Negative); SARS COV2 PCR INHOUSE NEGATIVE (Negative)
[2024-09-25 08:15] LABS: Appearance Urine Cloudy; Color Urine Yellow; Glucose Urine UA Negative (Negative); Leukocyte Esterase Urine Negative (Negative); Nitrite Urine Negative (Negative); PH 7.5 (5.0-9.0); Specific Gravity - Urine >= 1.030 (1.005-1.025); Urine Blood Negative (Negative); Urine Ketones Negative (Negative); Urine Protein Negative (Neg-Trace)
[2024-09-25 09:32] VITALS: BP 108/63; PULSE 72; RESP 18; TEMP 36.4; O2SAT 98
== END 2024-09-25 09:37 | disposition home or self-care (01) ==
PROVIDERS: Physician Assistant Medical; Emergency Provider Emergency Medicine; PCP Family Medicine
DX: K29.70 Gastritis, unspecified, without bleeding (principal); R10.9 Unspecified abdominal pain; E11.9 Type 2 diabetes mellitus without complications; F17.210 Nicotine dependence, cigarettes, uncomplicated; Z03.818 Encounter for observation for suspected exposure to other biological agents ruled out
CPT/HCPCS: 0241U; 74177; 80048; 80076; 81003; 83690; 83735; 84484; 84702; 85025; 93005; 99284; 99285; Q9967

== ENCOUNTER → 2024-09-25 06:36 | Outpatient (BNV) | payer OTHER, SELFPAY | PROVIDERS: Emergency Provider Emergency Medicine; PCP Family Medicine; Visit Provider Internal Medicine | DX: R10.13 Epigastric pain (principal) | CPT/HCPCS: 93010 ==

== ENCOUNTER → 2024-09-25 06:49 | Outpatient (BNV) | payer OTHER, SELFPAY | PROVIDERS: Emergency Provider Emergency Medicine; PCP Family Medicine; Visit Provider Radiology Diagnostic Radiology | DX: K59.00 Constipation, unspecified (principal); R10.9 Unspecified abdominal pain | CPT/HCPCS: 74177 ==

== ENCOUNTER → 2024-09-28 09:22 | Outpatient (BNV) | payer OTHER, SELFPAY | PROVIDERS: PCP Family Medicine; Visit Provider Radiology Diagnostic Radiology | DX: R10.11 Right upper quadrant pain (principal) | CPT/HCPCS: 76700 ==

== ENCOUNTER 2024-11-03 19:42 | Emergency (ER) | payer OTHER, SELFPAY ==
--- NOTE | ~2024-11-03 | XR_ITS ---
CLINICAL HISTORY: pain 1 view abdomen Comparison: CT/AR/SR - CT ABDOMEN PELVIS W IV CON - 09/25/24 07:31 EST Findings: Bowel-gas pattern is within normal limits. There is a moderate amount of stool in the colon. There is no evidence of bowel obstruction. No calcifications are seen within the regions of the kidneys or ureters. There are phleboliths in the pelvis. Impression: Bowel-gas pattern is within normal limits. This document has been electronically signed by: David Quarles MD on 11/04/2024 03:31:37
[2024-11-03 19:46] VITALS: BP 133/92; PULSE 80; RESP 20; TEMP 36.8; O2SAT 98; BMI 33.7
--- NOTE | 2024-11-03 19:47 | ED.GENADULT ---
HPI - General Adult General Chief complaint: General Medical Stated complaint: body aches, pain on right side of stomach Time Seen by Provider: 11/03/24 22:47 Source: patient Limitations: no limitations History of Present Illness ED Provider: Melody Nolan PA-C HPI narrative: 39-year-old female with a history of morbid obesity, chronic constipation, chronic abdominal pain, diabetes presents with the abdominal pain. Patient states she is having primarily right-sided abdominal discomfort of unclear duration. She states her entire body hurts, that she ?feels swollen?. Associated chills, no objective fever. Associated nausea, no active vomiting. Patient states she is having regular bowel movements. No distention, no inability to pass flatus. Related Data Home Medications ?Medication ?Instructions ?Recorded ?Confirmed fluticasone propionate 50 2 spray intranasal DAILY 08/27/23 08/12/24 mcg/actuation nasal spray,suspension loratadine 10 mg tablet 10 mg PO QAM 03/30/24 08/12/24 cholecalciferol (vitamin D3) 50 50 mcg PO DAILY 06/18/24 08/12/24 mcg (2,000 unit) capsule lidocaine 5 % topical patch 1 patch topical DAILY 06/18/24 08/12/24 tirzepatide 5 mg/0.5 mL 5 mg subcut QWEEK 06/18/24 08/12/24 subcutaneous pen injector (Corie) Previous Rx's ?Medication ?Instructions ?Recorded ibuprofen 600 mg tablet 600 mg PO Q6H PRN pain #30 tabs 10/02/23 magnesium citrate (Citrate of 150 ml PO DAILY PRN constipation 03/30/24 Magnesia oral) #296 mL docusate sodium 100 mg capsule 200 mg (2 x 100 mg) PO BEDTIME 06/18/24 #180 caps hydrocortisone 2.5 % topical cream 1 appl OK BID-QID PRN hemorrhoids 06/18/24 with perineal applicator #30 grams (Proctosol HC) linaclotide 290 mcg capsule 290 mcg PO QAM #30 caps 08/03/24 (Linzess) polyethylene glycol 3350 17 17 g PO DAILY #510 grams 08/27/24 gram/dose oral powder (Miralax) aluminum-mag hydroxide-simethicone 5 ml PO QID PRN indigestion #300 mL 09/25/24 400 mg-400 mg-40 mg/5 mL oral susp (Maalox Maximum Strength) omeprazole 20 mg capsule,delayed 20 mg PO DAILY 4 weeks #28 caps 09/25/24 release metoclopramide HCl 10 mg tablet 10 mg PO Q6H PRN nausea and 11/04/24 vomiting #14 tabs Allergies Allergy/AdvReac Type Severity Reaction Status Date / Time No Known Allergies Allergy Mild NOT Verified 11/03/24 19:48 APPLICABLE Review of Systems Review of Systems: Yes all other systems are reviewed and are negative Constitutional: Constitutional: Denies fatigue, Denies fever(s) and Reports malaise Cardiovascular: Cardiovascular: Denies chest pain and Denies dyspnea Respiratory: Respiratory: Denies cough and Denies dyspnea Gastrointestinal: Gastrointestinal: Reports abdominal pain, Reports constipation, Denies diarrhea, Reports nausea and Denies vomiting Musculoskeletal: Musculoskeletal: Reports myalgias Endocrine: Endocrine: Denies fatigue [facility] Past Medical History Attestation statement: The following information was validated with the patient. Medical History Diabetes Anal pain Constipation Hemorrhoids with complication Pelvic varices Surgical History History of hemorrhoidectomy Family History Family History Maternal Aunt Breast cancer in female Mother HTN (hypertension) Social History Social History Alcohol intake: former Patient Tobacco Use Status: Current everyday Tobacco user Tobacco use type: Cigarette Cigarette Packs Per Day: 0.5 Cigarettes Per Day: 10.0 Years Smoked: 16 Advance Directives: No Advance Directives Information Provided: Yes Physical Exam ED Vital Signs: Vital Signs - 24 hr 11/03/24 19:46 11/03/24 23:13 11/04/24 00:15 Temperature 98.3 F 97.6 F Pulse Rate 80 70 Respiratory Rate 20 16 16 Blood Pressure 133/92 H 100/56 L Pulse Oximetry 98 97 Oxygen Delivery Method Room Air Room Air BMI result Body Mass Index 33.7 Const Other: Sleeping, easily woken with verbal stimuli Orientation/consciousness: patient oriented x3 Resp Effort & Inspection: normal respiratory effort Cardio Other: Normal peripheral perfusion GI Other: Obese abdomen, soft, nondistended, generalized tenderness no guarding Skin Other: Warm dry no rash Neuro General: patient oriented x3, gait normal, no focal motor deficits and CN's II-XI intact bilaterally Psych Other: Cooperative Course Course Course Narrative: RME, this is a rapid medical exam performed by Cuauhtemoc Palma please refer to primary provider for complete H&P- 39 year old female presents for evaluation of right sided abdominal pain/ She has a history of chronic abdominal pain. She states, it feels like my whole body is swollen on the inside from head to toe. For labs urinalysis and viral testing. Medications Administered Discontinued Medications Generic Name Dose Route Start Last Admin Trade Name Freq PRN Reason Stop Dose Admin Morphine Sulfate 4 mg 11/04/24 00:02 11/04/24 00:15 Morphine Sulfate 4 Mg/Ml Cartridge IVPUSH 11/04/24 00:03 4 mg ONCE ONE Administration Protocol Ondansetron HCl 4 mg 11/04/24 00:02 11/04/24 00:15 Ondansetron Hcl 4 Mg/2 Ml Vial IVPUSH 11/04/24 00:03 4 mg ONCE ONE Administration Medical Decision Making Medical Decision Making [facility] Narrative: 39-year-old female with a history of morbid obesity, chronic constipation, chronic abdominal pain, diabetes presents with the abdominal pain. Patient states she is having primarily right-sided abdominal discomfort of unclear duration. She states her entire body hurts, that she ?feels swollen?. Associated chills, no objective fever. Associated nausea, no active vomiting. Patient states she is having regular bowel movements. No distention, no inability to pass flatus. Problem: Diabetes, chronic abdominal pain, chronic constipation History: Per patient I have considered the following differential diagnoses: Constipation, obstipation, bowel obstruction, viral syndrome , gastroparesis Plan: All of the patient's screening labs including a viral panel were negative. We will obtain a KUB, she is likely constipated, her symptoms are very vague and she has a benign abdominal exam, I am not obtaining a CT scan. Patient also states she is having itchy vaginal discharge that is white, we will give a dose of Diflucan. The patient may have underlying gastroparesis as well, we will likely send with the Reglan. I have independently reviewed the following tests: Labs: No leukocytosis, not anemic, no electrolyte abnormality, viral panel negative, urine not infected KUB: Constipated Lab Data 11/03/24 20:15 11/03/24 20:15 Labs: Lab Results 11/03/24 Range/Units 20:15 WBC 9.3 (4.8-10.8) X10*3/uL RBC 3.98 L (4.20-5.50) X10*6/uL Hgb 12.2 (12.0-16.0) g/dl Hct 35.4 L (37.0-47.0) % MCV 88.9 (80.0-98.0) fL MCH 30.7 (27.0-33.0) pg MCHC 34.5 (31.0-35.0) g/dl RDW 13.2 (11.0-16.0) % Plt Count 332 (160-400) X10*3/uL MPV 9.2 L (9.4-12.3) fL Immature Gran % (Auto) 0.3 (0.0-0.4) % Neut % (Auto) 51.4 (45-73) % Lymph % (Auto) 40.0 (20-40) % [place] % (Auto) 6.4 (2-11) % Eos % (Auto) 1.5 (0-4) % Baso % (Auto) 0.4 (0-2) % Lymph # (Auto) 3.7 (1.2-4.9) X10*3/uL [place] # (Auto) 0.6 (0.1-1.2) X10*3/uL Eos # (Auto) 0.1 (0.0-0.4) X10*3/uL Baso # (Auto) 0.0 (0.0-0.2) X10*3/uL Abs Immat Gran (auto) 0.03 (0.00-0.03) X10*3/uL Absolute Neuts (auto) 4.8 (2.0-8.3) x10*3/uL Absolute Nucleated RBC 0.000 (0.0-0.012) X10*3/uL Nucleated RBC % (auto) 0.0 (0.0-0.2) /100WBC Sodium 138 (135-145) mmol/L Potassium 3.7 (3.3-5.1) mmol/L Chloride 107 (96-108) mmol/L Carbon Dioxide 25 (22-29) mmol/L Anion Gap 10 L (12-20) BUN 13 (9-16) mg/dL Creatinine 0.65 (0.5-1.4) mg/dL Estim Creat Clear Calc 136.6 Estimated GFR > 60 Random Glucose 191 H (60-115) mg/dL Calcium 8.9 (8.4-10.2) mg/dL Total Bilirubin 0.3 (0.0-1.0) mg/dL AST 23 (5-31) U/L ALT 27 (0-31) U/L Alkaline Phosphatase 71 (39-117) U/L Total Protein 7.3 (6.5-8.0) g/dL Albumin 4.0 (3.5-5.0) g/dL Lipase 26 (8-78) U/L Beta HCG, Quant < 2 mIU/mL Urine Color Yellow Urine Appearance Cloudy Urine pH 5.5 (5.0-9.0) Ur Specific [place] 1.015 (1.005-1.025) Urine Protein Negative (Neg-Trace) mg/dL Urine Glucose (UA) Negative (Negative) mg/dL Urine Ketones Negative (Negative) mg/dL Urine Blood Negative (Negative) Urine Nitrite Negative (Negative) Ur Leukocyte Esterase Negative (Negative) Urine RBC 0-2 (0-2) /HPF Urine WBC 0-5 (0-5) /HPF Ur Squamous Epith Cells 3-5 (0-2) /HPF Urine Bacteria None Seen (None Seen) Hyaline Casts 0-2 (0-2) /LPF Influenza Type A (PCR) NEGATIVE (Negative) Influenza Type B (PCR) NEGATIVE (Negative) RSV RNA Qual (PCR) NEGATIVE (Negative) SARS-CoV-2 RNA (RT-PCR) NEGATIVE (Negative) Discharge Plan Discharge Clinical Impression: Constipation Qualifiers: Constipation type: chronic idiopathic constipation Qualified Code(s): K59.04 - Chronic idiopathic constipation Patient Disposition: Home, Self-Care Instructions: Constipation (ED) Additional Instructions: All of your screening labs including a viral panel and urinalysis were normal. I treated you for suspect yeast infection. You were found to be constipated. You should be using Colace twice a day. Use MiraLax, drink 1 cup several times a day, to help maintain regular bowel movements. Continued with follow up with your clinical research administrator for your ongoing chronic pain and constipation. Use the metoclopramide as needed for nausea, this also helps with gut motility. Prescriptions: New metoclopramide HCl 10 mg tablet 10 mg PO Q6H PRN (Reason: nausea and vomiting) Qty: 14 0RF No Action Linzess 290 mcg capsule 290 mcg PO QAM Qty: 30 4RF ibuprofen 600 mg tablet 600 mg PO Q6H PRN (Reason: pain) Qty: 30 0RF omeprazole 20 mg capsule,delayed release(DR/EC) 20 mg PO DAILY 28 Days Qty: 28 0RF alum-mag hydroxide-simeth [Maalox Maximum Strength] 400-400-40 mg/5 mL suspension 5 ml PO QID PRN (Reason: indigestion) Qty: 300 0RF fluticasone propionate 50 mcg/actuation spray,suspension 2 spray intranasal DAILY loratadine 10 mg tablet 10 mg PO QAM magnesium citrate [Citrate of Magnesia] Solution 150 ml PO DAILY PRN (Reason: constipation) Qty: 296 5RF Mounjaro 5 mg/0.5 mL pen injector 5 mg subcut QWEEK lidocaine 5 % adhesive patch,medicated 1 patch topical DAILY cholecalciferol (vitamin D3) 50 mcg (2,000 unit) capsule 50 mcg PO DAILY docusate sodium 100 mg capsule 200 mg PO BEDTIME Qty: 180 3RF hydrocortisone [Proctosol HC] 2.5 % cream with perineal applicator 1 appl OK BID-QID PRN (Reason: hemorrhoids) Qty: 30 2RF polyethylene glycol 3350 [Miralax] 17 gram/dose powder 17 g PO DAILY Qty: 510 2RF Print Language: Polish
[2024-11-03 20:25] LABS: MANUAL DIFF FLAG NO
[2024-11-03 20:29] LABS: Basophils Percent Auto 0.4 % (0-2); Eosinophils Absolute Auto 0.1 X10*3/uL (0.0-0.4); Eosinophils Percent Auto 1.5 % (0-4); Hematocrit 35.4 % (37.0-47.0); Hemoglobin 12.2 g/dl (12.0-16.0); Imm Gran Abs Auto 0.03 X10*3/uL (0.00-0.03); Imm Gran Pct Auto 0.3 % (0.0-0.4); Lymphocytes Absolute Auto 3.7 X10*3/uL (1.2-4.9); Mean Corpuscular HGB Conc 34.5 g/dl (31.0-35.0); Mean Corpuscular Hemoglobin 30.7 pg (27.0-33.0); Mean Corpuscular Volume 88.9 fL (80.0-98.0); Mean Platelet Volume 9.2 fL (9.4-12.3); Monocytes Absolute Auto 0.6 X10*3/uL (0.1-1.2); Monocytes Percent Auto 6.4 % (2-11); Neutrophils Absolute Auto 4.8 x10*3/uL (2.0-8.3); Neutrophils Percent Auto 51.4 % (45-73); Platelet Count 332 X10*3/uL (160-400); Red Blood Count 3.98 X10*6/uL (4.20-5.50); Red Cell Distribution Width 13.2 % (11.0-16.0); White Blood Count 9.3 X10*3/uL (4.8-10.8)
[2024-11-03 20:31] LABS: Appearance Urine Cloudy; Color Urine Yellow; Glucose Urine UA Negative (Negative); Leukocyte Esterase Urine Negative (Negative); Nitrite Urine Negative (Negative); PH 5.5 (5.0-9.0); Specific Gravity - Urine 1.015 (1.005-1.025); Urine Blood Negative (Negative); Urine Ketones Negative (Negative); Urine Protein Negative (Neg-Trace)
[2024-11-03 20:35] LABS: Bacteria Urine None Seen (None Seen); Hyaline Casts Urine 0-2 /LPF (0-2); RBC Urine 0-2 /HPF (0-2); WBC Urine 0-5 /HPF (0-5)
[2024-11-03 20:45] LABS: Alanine Aminotransferase 27 U/L (0-31); Alkaline Phosphatase 71 U/L (39-117); Anion Gap 10 (12-20); Aspartate Amino Transferase 23 U/L (5-31); Bilirubin Total 0.3 mg/dL (0.0-1.0); Blood Urea Nitrogen 13 mg/dL (9-16); Calcium 8.9 mg/dL (8.4-10.2); Carbon Dioxide 25 mmol/L (22-29); Chloride 107 mmol/L (96-108); Creatinine Clr Calc Pharmacy 136.6; Estimated Glomerular Filt Rate > 60; Glucose Random 191 mg/dL (60-115); Lipase 26 U/L (8-78); Potassium 3.7 mmol/L (3.3-5.1); Sodium 138 mmol/L (135-145); Total Protein 7.3 g/dL (6.5-8.0)
[2024-11-03 20:53] LABS: HCG Quantitative < 2 mIU/mL
[2024-11-03 21:06] LABS: Influenza A PCR NEGATIVE (Negative); Influenza B PCR NEGATIVE (Negative); Resp Syncy Virus RNA Qual PCR NEGATIVE (Negative); SARS COV2 PCR INHOUSE NEGATIVE (Negative)
[2024-11-03 23:13] VITALS: BP 100/56; PULSE 70; RESP 16; TEMP 36.4; O2SAT 97
[2024-11-04 00:15] VITALS: RESP 16
[2024-11-04] MEDS: ondansetron HCL 4 MG/2 ML VIAL IVPUSH (00:15)
[2024-11-04] MEDS: Morphine Sulfate 4 MG/ML CARTRIDGE IVPUSH (00:15)
[2024-11-04 02:16] VITALS: BP 96/59; PULSE 61; RESP 16; TEMP 36.4; O2SAT 96
[2024-11-04] MEDS: Fluconazole 150 MG TABLET PO (02:39)
[2024-11-04 02:41] VITALS: BP 96/59; PULSE 61; RESP 16; TEMP 36.4; O2SAT 96
== END 2024-11-04 02:49 | disposition home or self-care (01) ==
PROVIDERS: Physician Assistant; Emergency Provider Emergency Medicine Emergency Medical Services; PCP Family Medicine
DX: K59.04 Chronic idiopathic constipation (principal); M79.10 Myalgia, unspecified site; R10.31 Right lower quadrant pain; F17.210 Nicotine dependence, cigarettes, uncomplicated; R11.0 Nausea; Z03.818 Encounter for observation for suspected exposure to other biological agents ruled out; Z79.899 Other long term (current) drug therapy
CPT/HCPCS: 0241U; 36415; 74018; 80053; 81001; 83690; 84702; 85025; 99284; J2270; J2405

== ENCOUNTER → 2024-11-04 01:29 | Outpatient (BNV) | payer OTHER, SELFPAY | PROVIDERS: Emergency Provider Emergency Medicine Emergency Medical Services; PCP Family Medicine; Visit Provider Radiology Diagnostic Radiology | DX: R10.9 Unspecified abdominal pain (principal) | CPT/HCPCS: 74018 ==

== ENCOUNTER 2024-11-17 12:36 | Outpatient (REF) | payer OTHER, SELFPAY ==
[2024-11-17 13:51] LABS: Hematocrit 40.1 % (37.0-47.0); Hemoglobin 13.7 g/dl (12.0-16.0); Mean Corpuscular HGB Conc 34.2 g/dl (31.0-35.0); Mean Corpuscular Hemoglobin 30.7 pg (27.0-33.0); Mean Corpuscular Volume 89.9 fL (80.0-98.0); Mean Platelet Volume 9.4 fL (9.4-12.3); Platelet Count 359 X10*3/uL (160-400); Red Blood Count 4.46 X10*6/uL (4.20-5.50); Red Cell Distribution Width 13.2 % (11.0-16.0)
[2024-11-17 13:56] LABS: Estimated Average Glucose 131 mg/dL; Hemoglobin A1C 158.7548 umol/L; Hemoglobin A1c % 6.2 % (<6.0); Total Hemoglobin (HGBA1C) 3567.0967 umol/L
[2024-11-17 14:30] LABS: Alanine Aminotransferase 21 U/L (0-31); Albumin Level 4.5 g/dL (3.5-5.0); Alkaline Phosphatase 83 U/L (39-117); Anion Gap 10 (12-20); Aspartate Amino Transferase 17 U/L (5-31); Bilirubin Direct 0.2 mg/dL (0.0-0.5); Bilirubin Total 0.5 mg/dL (0.0-1.0); Blood Urea Nitrogen 11 mg/dL (9-16); Calcium 9.7 mg/dL (8.4-10.2); Carbon Dioxide 25 mmol/L (22-29); Chloride 108 mmol/L (96-108); Cholesterol 162 mg/dL (<200); Estimated Glomerular Filt Rate > 60; Glucose Random 90 mg/dL (60-115); HDL Cholesterol 47 mg/dL (>40); LDL Cholesterol Calculated 99 mg/dL (<100); Potassium 3.9 mmol/L (3.3-5.1); Sodium 139 mmol/L (135-145); Total Protein 8.1 g/dL (6.5-8.0); Triglycerides 81 mg/dL (<150)
[2024-11-17 14:45] LABS: Free T4 (Free Thyroxine) 1.05 ng/dL (0.71-1.85); Thyroid Stimulating Hormone 1.05 uIU/mL (0.32-4.0); Vitamin D 25-OH Total 30.7 ng/mL (>30)
[2024-11-18 04:32] LABS: HBS Num1 106.27 mIU/mL (0-7.99); HIV AB/AG Nonreactive (Nonreactive); HIV Num 1 0.05 S/CO (0.00-0.99); Hepatitis B Surface Antigen Negative (Negative); ~HepC Num1 0.25 S/CO (0.00-0.79); ~Hepatitis B Surface Antibody REACTIVE (Nonreactive); ~Hepatitis C Antibody Nonreactive (Nonreactive)
[2024-11-18 06:03] LABS: CT PCR NOT DETECTED (Not Detect.); NG PCR NOT DETECTED (Not Detect.)
[2024-11-18 14:28] LABS: RPR Rapid Plasma Reagin NON-REACTIVE (NON-REACTIVE)
== END 2024-11-17 12:37 | disposition home or self-care (01) ==
LOC: HO.HHCL 12:36
PROVIDERS: Visit Provider Family Medicine
DX: Z00.00 Encounter for general adult medical examination without abnormal findings (principal); E11.9 Type 2 diabetes mellitus without complications; E78.49 Other hyperlipidemia; K59.09 Other constipation; R20.2 Paresthesia of skin; J30.9 Allergic rhinitis, unspecified; R10.11 Right upper quadrant pain
CPT/HCPCS: 80048; 80061; 80076; 82306; 83036; 84439; 84443; 85027; 86592; 86706; 86803; 87340; 87389; 87491; 87591

== ENCOUNTER → 2024-12-01 18:45 | Outpatient (BNV) | payer OTHER, SELFPAY | PROVIDERS: PCP Family Medicine; Visit Provider Radiology Diagnostic Radiology | DX: R20.2 Paresthesia of skin (principal); R20.0 Anesthesia of skin; R90.82 White matter disease, unspecified | CPT/HCPCS: 70551 ==

== ENCOUNTER 2024-12-01 18:48 | Outpatient (REF) | payer OTHER, SELFPAY ==
--- NOTE | ~2024-12-01 | MR_ITS ---
EXAMINATION: MR BRAIN WITHOUT CONTRAST CLINICAL INFORMATION: Tingling and numbness, left hemibody. COMPARISON: Correlated to CT dated May 04, 2024. TECHNIQUE: MRI of the brain was obtained using routine sequences without contrast. FINDINGS: No restricted diffusion. No acute intracranial hemorrhage, mass effect, midline shift, hydrocephalus or herniation. Bilateral, multifocal, scattered, punctate subcortical and deep white matter hyperintense T2 FLAIR signal involving centrum semiovale and orta radiata. Mc-white matter differentiation is normal. Posterior cranial fossa contents demonstrated no signal abnormality or masses. Sellar/suprasellar region is normal. Craniocervical junction is intact and normal. Flow-void signal within the main cerebral vessels is normal. 12 mm retention cyst, left maxillary sinus. Poor dentition. MR/MR head/brain wo con IMPRESSION: No acute stroke/nonhemorrhagic ischemia. Bilateral punctate white matter signal abnormality. Demyelinating process cannot be excluded. Electronically signed by: Issac Wilson MD 12/02/2024 07:09 AM EDT
--- OUTSIDE RECORDS SUMMARY | 2024-12-01 18:52 | XMS_ITS | Encounter Summary ---
Author Organization [employer] Address [address] [place] [address] [address] [place] [address] Care Team Providers Care Net C Developer Name Role Phone Casie Angulo DO Primary Care Provider Antoinette Liu PharmD Unavailable Reason for Visit * Reason Onset Date Comments Nurse Triage 07/28/2023 Encounter Details Date Type Department Care Team ([facility] st Contact Info) Description 07/28/2023 Telephone [facility] [address] [place], [place] [phone] Casie Angulo DO [address] [place] [address] Nurse Triage Social History Tobacco Use Types [...] Care Team (Late st Contact Info) Description 12/31/2024 10:00 AM EDT Office Visit [facility] [address] [place] [address] Casie Angulo DO [address] [place] [address] documented as of this encounter Goals Goal Patient Goal Type Associated Problems Recent Progress Patient-Stated? Author Hemoglobin A1c < 7 Result Component 6.2( 12:40 PM EDT) No Alvin Caldera PharmD Record your blood [...] documented as of this encounter Care Teams Net C Developer Relationship Specialty Start Date End Date Casie Angulo DO [address] [place] [address] PCP - General Family Medicine 08/25/18 Antoinette Liu PharmD [address] [place] [address] Pharmacist Internal Medicine 05/01/23 documented as of this encounter
--- OUTSIDE RECORDS SUMMARY | 2024-12-01 18:52 | XMS_ITS | Encounter Summary ---
Author Organization [employer] Address [address] [place] [address] [address] [place] [address] Care Team Providers Care Composition Mixer Name Role Phone Casie Angulo DO Primary Care Provider [phone] Alvin Caldera PharmD Unavailable Unavail able Antoinette Liu PharmD Unavailable [phone] Reason for Visit * Reason Comments Med Refill Encounter Details Date Type Department Care Team (Late st Contact Info) Description 10/23/2022 Refill [facility] [address] [place] [address] Casie Angulo DO [address] [place] [address] Muscle spasm Social History Tobacco Use Types [...] Description 12/31/2024 10:00 AM EDT Office Visit [facility] [address] [place] [address] Casie Angulo DO [address] [place] [address] documented as of this encounter Visit Diagnoses Diagnosis Muscle spasm Spasm of muscle documented in this encounter Care Teams Composition Mixer Relationship Specialty Start Date End Date [place] [address] PCP - General Family Medicine 08/25/18 Alvin Caldera, BriandaD [address] [place] [id number] Pharmacist Internal Medicine 12/10/22 04/30/23 Antoinette Liu PharmD [address] [place] [phone] Pharmacist Internal Medicine 05/01/23 documented as of this encounter
--- OUTSIDE RECORDS SUMMARY | 2024-12-01 18:52 | XMS_ITS | Clinical Summary ---
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 3 Active loratadine (Claritin) 10 MG tablet Take 1 tablet (10 mg) by mouth in the morning. 30 tablet 11 4 Active FreeStyle lancetsIndicat ions:Type 2 diabetes mellitus without complication, without long-term current use of insulin ([facility]) 1 each by Other route 2 times daily. USE TWICE DAILY 100 each 4 Active glucose blood (FREESTYLE LITE) test stripIndicatio ns:Type 2 diabetes mellitus without complication, without long-term current use of insulin ([facility]) USE TO TEST TWICE A DAY 100 strip 4 Active UltiCare Alcohol Swabs 70 % padsIndication s:Type 2 diabetes mellitus without complication, without long-term current use of insulin ([facility]) USE 1 SWAB TOPICALLY 2 TIMES EVERY DAY 100 each 4 Active cholecalcifero l (Vitamin D-3) 50 MCG (2000 UT) capsuleIndicat ions:Vitamin D deficiency Take 1 capsule (50 mcg) by mouth Once per day. 30 capsule 11 4 Active Varenicline Tartrate, Starter, (Chantix Starting Month ) 0.5 MG X 11 & 1 MG X 42 tablet therapy packIndication s:Tobacco dependence Take 0.5 mg by mouth Once per day for 3 days, THEN 0.5 mg 2 times daily for 4 days, THEN 1 mg 2 times daily. Take after meals with a full glass of water.. 53 each 4 Active varenicline (Chantix) 1 MG tabletIndicati ons:Tobacco dependence Take 1 tablet (1 mg) by mouth 2 times daily. Take after meals with a full glass of water. 60 tablet 4 4 Active acetaminophen (Tylenol) 500 MG tablet Take 2 tablets (1,000 mg) by mouth every 6 (six) hours if needed for moderate pain or fever for up to 25 doses. 50 tablet 4 Active polycarbophil (Fibercon) 625 MG tablet Take 1 tablet (625 mg) by mouth 2 times daily. 180 tablet 3 5 09/01/19 26 Active docusate sodium (Colace) 100 MG capsule Take 1 capsule (100 mg) by mouth 2 times daily. 180 capsule 3 5 10/01/19 26 Active polyethylene glycol, PEG, 3350 (MiraLax) 17 GM/SCOOP powder Take 17 g by mouth Once per day. 527 g 3 5 10/01/19 26 Active dicyclomine (Bentyl) 10 MG capsule Take 1 capsule (10 mg) by mouth if needed in the morning, at noon, in the evening, and at bedtime (abd pain). 30 capsule 3 5 10/01/19 26 Active simethicone (Mylicon,Gas-X ) 125 MG capsule Take 1 capsule (125 mg) by mouth every 6 (six) hours if needed for flatulence. 30 capsule 3 5 Active ibuprofen 600 MG tablet Take 1 tablet (600 mg) by mouth every 6 (six) hours if needed for mild pain for up to 20 doses. 20 tablet 5 Active Junel FE .01/21 1.5-30 MG-MCG tablet Take 1 tablet by mouth Once per day. 5 Active baclofen (Lioresal) 10 MG tablet Take 1 tablet (10 mg) by mouth if needed in the morning, at noon, and at bedtime for muscle spasms. 60 tablet 1 5 11/18/19 26 Active Diclofenac Sodium 1 % gel Apply 2 g topically if needed in the morning, at noon, in the evening, and at bedtime (pain). 150 g 3 5 Active gabapentin (Neurontin) 100 MG capsule Take 1 capsule (100 mg) by mouth 3 times daily. 90 capsule 3 5 11/25/19 26 Active Tirzepatide (Mounjaro) 5 MG/0.5ML solution auto-injector Inject 5 mg under the skin 1 (one) time per week. 4 11/25/19 Discontinue d(Side effects) amoxicillin (Amoxil) 500 MG capsule Take 1 capsule (500 mg) by mouth every 8 (eight) hours for 7 days. 21 capsule 5 11/02/19 25 ibuprofen 400 MG tablet Take 1.5 tablets (600 mg) by mouth every 6 (six) hours if needed for moderate pain for up to 7 days. 30 tablet 5 11/02/19 25 acetaminophen (Tylenol) 500 MG tablet Take 1 tablet (500 mg) by mouth every 6 (six) hours if needed for mild pain for up to 7 days. 28 tablet 5 11/02/19 25 amoxicillin-cl avulanate (Augmentin) 875-125 MG tablet Take 1 tablet by mouth 2 times daily for 7 days. 14 tablet 5 11/18/19 25 Discontinue d(Therapy completed) Hospital, Clinic, or Other Facility Administered Medication Ordered Dose Route Frequency Start Date End Date Status ketorolac (Toradol) injection 30 mgIndications:Myalgia, multiple sites 30 mg IM Once 11/20/2024 11/20/2024 Ended Active Problems Problem Noted Date Diagnosed Date [...] pt to come get examined today at [facility] Will repeat labs due to Hx of leukocytosis and r/o UA Recommended to hold Metformin x 2 days and see if Sx improved Unclear if related to pelvic congestion syndrome Recommend to be seen in the [facility] due to nasal congestion and other Sx, may needs to be tested for viral diseases, ei. covid and flu Acute frontal sinusitis 06/03/2023 02/0 02/2024 Low-lying placenta 11/27/2022 3 AMA (advanced maternal age) multigravida 35+ 3 11/27/2022 Depression 10/16/2022 12/18/2022 Smoker 10/16/2022 11/27/2022 Body aches 07/29/2018 11/27/2022 Alopecia 07/25/2015 12/18/2022 Chronic migraine 07/25/2015 10/01/2023 Encounters Date Type Department Care Team Description 11/24/2024 11:30 AM EDT Office Visit [address] [address] Casie Angulo, Paresthesia of left arm and leg (Primary Dx) 11/24/2024 Travel 11/20/2024 10:20 AM EDT Office Visit [facility] [address] [place] [phone] Tarun La MD Myalgia, multiple sites (Primary Dx) 11/17/2024 11:15 AM EDT Office Visit [address] [address] Casie Angulo DO Chronic abdominal pain (Primary Dx); Chronic constipation; Mid back pain on right side; Pelvic congestion syndrome; Type 2 diabetes mellitus with other specified complication, unspecified whether custodial insulin use ([facility]) 11/17/2024 Travel 11/05/2024 11:30 AM EDT Office Visit [facility] [address] [place] [address] Norma Abarca 11/03/2024 Orders Only GENERIC EXTERNAL DATA DEPARTMENT Provider, Generic External Data 11/03/2024 Telephone [facility] [address] [place] [address] Nicole Lozano, RENNY unable to post insurance 10/25/2024 11:30 AM EST Office Visit [facility] [address] [place] [address] Norma Abarca 10/25/[address] [address] Casie Angulo DO Appointment Request 10/25/2024 Travel 10/01/2024 11:45 AM EST Office Visit [address] [address] Casie Angulo DO 10/01/2024 Travel 09/27/[address] [address] Maddie Crenshaw, DEEPAK Appt R/S 09/25/2024 Orders Only GENERIC EXTERNAL DATA DEPARTMENT Provider, Generic External Data 09/24/[address] [address] Casie Angulo DO chart prep 09/24/2024 Telephone [facility] [address] [place] [address] Casie Angulo DO Nurse Triage 09/13/2024 Orders Only GENERIC EXTERNAL DATA DEPARTMENT Provider, Generic External Data 09/09/2024 9:30 AM EST Office Visit [facility] [address] [place] [address] Nicoel Lozano DDS from Last 3 Months Immunizations Name Administration Dates Next Due DTaP 08/25/1997 Hep B, adult 11/28/2023(Deferred: No longer needed - Immune per titers 06/28/22.),06/26/2001,07/18/1998 Influenza, IIV3, injectable 06/30/2019 MMR 02/20/1995 OPV, Trivalent 08/25/1997 Pfizer Covid-19 Vaccine 12+ 11/30/2021 Pneumococcal [...] Answer Date Recorded Patient Health Questionnaire-9 Score 5 11/17/2024 Patient Health Questionnaire-9 Score 5 11/17/2024 Last PHQ-9: Questionnaire Data Not on file 0 11/17/2024 Housing Stability Answer Date Recorded What is [...] Answer Date Recorded Patient Health Questionnaire-2 Score 3 11/17/2024 Internet Access Answer Date Recorded Internet Access Q1 Yes 11/17/2024 Internet Access Q2 Not on file 11/17/2024 Comments No Sex and Gender Information Value Date Recorded Sex Assigned at Female 06/24/2022 10:15 AM EDT Legal Sex Female 10:15 AM EDT Gender Identity Female 06/24/2022 10:15 AM EDT Sexual Orientation Straight 06/24/2022 10 :15 AM EDT Last Filed Vital Signs Vital Sign Reading Time Taken Comments Blood Pressure 122/70 11/24/2024 12:11 PM EDT Pulse 70 11/24/2024 12:11 PM EDT Temperature 37.1 ??C (98.8 ??F) 11/24/2024 12:11 PM E DT Respiratory Rate 19 11/24/2024 12:11 PM EDT Oxygen Saturation 99% 11/24/2024 12:11 PM EDT Inhaled Oxygen Concentration - - Weight 94.8 kg (209 lb) 11/24/2024 12:11 PM EDT Height 170.2 cm (5' 7 ) 11/24/2024 12:11 PM EDT Body Mass Index 32.73 11/24/2024 12:11 PM EDT Plan of Treatment Upcoming Encounters Date Type Department Care Team (Late st Contact Info) Description 12/31/2024 10:00 AM EDT Office Visit [facility] [address] [place], [place] [phone] Casie Angulo DO [address] [place] [address] Health Maintenance Due Date Last Done Comments Diabetes: Foot Exam 1993 IPV Vaccines (2 of 3 - 4-dose series) 09/22/1997 08/25/1997 Family Planning (PISQ) 1998 Mammogram 2023 Diabetes: Urine Protein Screening 06/28/2023 06/28/2022, 01/23/2021 COVID-19 Vaccine ( season) 2024 11/30/2021, 07/02/2021, 06/11/2021 Influenza Vaccine (#1) 2024 06/30/2019 Dental Oral Exam 10/09/2024 04/07/2024 Dental Prophylaxis 10/09/2024 04/07/2024 Diabetes: Hemoglobin A1C 05/20/2025 025, 11/17/2024, 09/01/2024, Additional history exists Alcohol/Substance Use Screening 09/01/2025 09/01/2024 Dental X-Ray: Bitewings 11/06/2025 11/06/19 25, 10/25/2024, 04/07/2024 Depression Screening 11/17/2025 11/17/2024, 11/18/19 Lipid Panel 11/17/2025 11/17/2024, 08/26, 06/03/2023, Additional history exists SDOH Screening 11/17/2025 11/17/2024 Tobacco Screening 11/24/2025 11/24/2024 Eye Exam 02/15/2026 02/16/2024, 01/24, 02/16/2024, Additional history exists Pap Smear 04/14/2026 04/14/2023, 04/0 11/2021, 01/04/2019 Dental X-Ray: Full Mouth 04/08/2027 04/07/2024, 0702/2024 Cervical Cancer Screening 04/14/2028 HPV/Cotest 04/14/2028 04/14/2023, 04/0 11/2021, 01/04/2019 DTaP/Tdap/Td Vaccines (4 - Td or Tdap) 04/16/2029 04/16/2019, 07/04/2010, 08/25/1997 Zoster Vaccines (1 of 2) 2033 RSV Patients and Patients Aged 60 years or older (1 - 1-dose 75+ series) 2058 Hepatitis B Vaccines Discontinued 06/26/2001, 07/18/19 98 Pneumococcal Vaccine: Pediatrics (0 to 5 Years) and At-Risk Patients (6 to 49) Years) Completed 06/04/2024 HIV Screening Completed 11/17/2024, 08/26, 06/28/2022, Additional history exists Hepatitis C Screening Completed 11/17/2024 , 09/19/2023, 06/28/2022, Additional history exists HIB Vaccines Aged Out No longer eligi ble based on patient's age to complete this topic HPV Vaccines Aged Out No longer eligi ble based on patient's age to complete this topic Hepatitis A Vaccines Aged Out No long er eligible based on patient's age to complete [...] Procedure Name Priority Date/Time Associated Diagnosis Comments HEPATITIS B SURFACE ANTIBODY, QUALITATIVE Routine 11/17/2024 12:40 PM EDT Type 2 diabetes mellitus without complication, without long-term current use of insulin (CMS/HCC) Other hyperlipidemia Chronic constipation Chronic allergic rhinitis RUQ pain Healthcare maintenance RPR (MONITOR) W/REFL TITER Routine 11/17/2024 12:40 PM EDT Type 2 diabetes mellitus without complication, without long-term current use of insulin (CMS/HCC) Other hyperlipidemia Chronic constipation Chronic allergic rhinitis RUQ pain Healthcare maintenance HEPATITIS C AB W/REFL TO HCV RNA, QN, PCR Routine 11/17/2024 12:40 PM EDT Type 2 diabetes mellitus without complication, without long-term current use of insulin (CMS/HCC) Other hyperlipidemia Chronic constipation Chronic allergic rhinitis RUQ pain Healthcare maintenance HIV 1/2 ANTIGEN/ANTIBODY, FOURTH GENERATION W/RFL Routine 11/17/2024 12:40 PM EDT Type 2 diabetes mellitus without complication, without long-term current use of insulin (CMS/HCC) Other hyperlipidemia Chronic constipation Chronic allergic rhinitis RUQ pain Healthcare maintenance HEPATITIS B SURFACE ANTIGEN, EIA Routine 11/17/2024 12:40 PM EDT Type 2 diabetes mellitus without complication, without long-term current use of insulin (CMS/HCC) Other hyperlipidemia Chronic constipation Chronic allergic rhinitis RUQ pain Healthcare maintenance CBC Routine 11/17/2024 12:40 PM EDT Type 2 diabetes mellitus without complication, without long-term current use of insulin (CMS/HCC) Other hyperlipidemia Chronic constipation Chronic allergic rhinitis RUQ pain Healthcare maintenance BASIC METABOLIC PANEL Routine 11/17/2024 12:40 PM EDT Type 2 diabetes mellitus without complication, without long-term current use of insulin (CMS/HCC) Other hyperlipidemia Chronic constipation Chronic allergic rhinitis RUQ pain Healthcare maintenance HEMOGLOBIN A1C Routine 11/17/2024 12:40 PM EDT Type 2 diabetes mellitus without complication, without long-term current use of insulin (CMS/HCC) Other hyperlipidemia Chronic constipation Chronic allergic rhinitis RUQ pain Healthcare maintenance HEPATIC FUNCTION PANEL Routine 11/17/2024 12:40 PM EDT Type 2 diabetes mellitus without complication, without long-term current use of insulin (CMS/HCC) Other hyperlipidemia Chronic constipation Chronic allergic rhinitis RUQ pain Healthcare maintenance TSH Routine 11/17/2024 12:40 PM EDT Type 2 diabetes mellitus without complication, without long-term current use of insulin (CMS/HCC) Other hyperlipidemia Chronic constipation Chronic allergic rhinitis RUQ pain Healthcare maintenance LIPID PANEL, STANDARD Routine 11/17/2024 12:40 PM EDT Type 2 diabetes mellitus without complication, without long-term current use of insulin ([facility]/HCC) Other hyperlipidemia Chronic constipation Chronic allergic rhinitis RUQ pain Healthcare maintenance VITAMIN D,25-OH,TOTAL,IA Routine 11/17/2024 12:40 PM EDT Type 2 diabetes mellitus without complication, without long-term current use of insulin (CMS/HCC) Other hyperlipidemia Chronic constipation Chronic allergic rhinitis RUQ pain Healthcare maintenance T4, FREE Routine 11/17/2024 12:40 PM EDT Type 2 diabetes mellitus without complication, without long-term current use of insulin ([facility]/HCC) Other hyperlipidemia Chronic constipation Chronic allergic rhinitis RUQ pain Healthcare maintenance CHLAMYDIA/N. GONORRHOEAE RNA, TMA, UROGENITAL Routine 11/17/2024 12:40 PM EDT Type 2 diabetes mellitus without complication, without long-term current use of insulin ([facility]) Other hyperlipidemia Chronic constipation Chronic allergic rhinitis RUQ pain Healthcare maintenance POCT GLYCATED HEMOGLOBIN, TOTAL Routine 11/17/2024 12:31 PM EDT Type 2 diabetes mellitus with other specified complication, unspecified whether custodial insulin use ([facility]) POCT GLUCOSE Routine 11/17/2024 12:30 PM EDT Type 2 diabetes mellitus with other specified complication, unspecified whether terminologist insulin use ([facility]) CASE PRESENTATION, DETAILED AND EXTENSIVE TREATMENT PLANNING Routine 11/05/2024 11:30 AM EDT BITEWING - SINGLE RADIOGRAPHIC IMAGE Routine 11/05/2024 11:30 AM EDT INTRAORAL - PERIAPICAL FIRST RADIOGRAPHIC IMAGE Routine 11/05/2024 11:30 AM EDT LIMITED ORAL EVALUATION - PROBLEM FOCUSED Routine 11/05/2024 11:30 AM EDT XR KUB AND UPRIGHT 2 VIEWS Routine 11/04/2024 3:31 AM EDT HCG, TOTAL, QN Routine 11/03/2024 8:15 PM EDT LIPASE Routine 11/03/2024 8:15 PM EDT COMPREHENSIVE METABOLIC PANEL Routine 11/03/2024 8:15 PM EDT URINALYSIS, COMPLETE, WITH REFLEX TO CULTURE Routine 11/03/2024 8:15 PM EDT CBC WITH AUTO DIFFERENTIAL Routine 11/03/2024 8:15 PM EDT SARS COV2/INFLUENZA A/B AND RSV RNA QL NAAT Routine 11/03/2024 8:15 PM EDT LIMITED ORAL EVALUATION - PROBLEM FOCUSED Routine 10/25/2024 11:30 AM EST CASE PRESENTATION, DETAILED AND EXTENSIVE TREATMENT PLANNING Routine 10/25/2024 11:30 AM EST BITEWING - SINGLE RADIOGRAPHIC IMAGE Routine 10/25/2024 11:30 AM EST 4 INTRAORAL - PERIAPICAL FIRST RADIOGRAPHIC IMAGE Routine 10/25/2024 11:30 AM EST US ABDOMEN COMPLETE Routine 09/29/2024 6 :07 AM EST RUQ pain CT ABDOMEN PELVIS W CONTRAST Routine 09/25/2024 8:38 AM EST URINALYSIS WITH REFLEX MICROSCOPIC Routine 09/25/2024 8:06 AM EST HCG, TOTAL, QN Routine 09/25/2024 6:53 AM EST HIGH SENSITIVITY TROPONIN I Routine 09/25/2024 6:53 AM EST LIPASE Routine 09/25/2024 6:53 AM EST MAGNESIUM Routine 09/25/2024 6:53 AM EST BASIC METABOLIC PANEL Routine 09/25/2024 6:53 AM EST HEPATIC FUNCTION PANEL Routine 09/25/2024 6:53 AM EST CBC WITH AUTO DIFFERENTIAL Routine 09/25/2024 6:53 AM EST SARS COV2/INFLUENZA A/B AND RSV RNA QL NAAT Routine 09/25/2024 6:53 AM EST US ABDOMEN LIMITED Routine 09/13/2024 1: 10 [...] 3 EXTRACTION, ERUPTED TOOTH OR EXPOSED ROOT (ELEVATION/FORCEPS REMOVAL) Routine 09/09/2024 9:30 AM EST PROPHYLAXIS - ADULT Routine 04/07/2024 1 0:00 AM EDT Gingivitis due to dental plaque with local contributing factor INTRAORAL - COMPLETE SERIES OF RADIOGRAPHIC IMAGES Routine 04/07/2024 10:00 AM EDT Gingivitis due to dental plaque with local contributing factor Dental caries Missing teeth, acquired PERIODIC ORAL EVALUATION - ESTABLISHED PATIENT Routine 04/07/2024 10:00 AM EDT HM PAP/HPV Routine 04/14/2023 ALBUMIN, RANDOM URINE W/CREATININE Routine 06/28/2022 1:38 PM EDT from Last 3 Months or Most Recently Relevant to Health Maintenance Results * Vitamin D, 25-Hydroxy, Total, Immunoassay (11/17/2024 12:40 PM EDT) Vitamin D 25-OH Total 30.7 >30 ng/mL [facility] Comment: Health Based Reference Values*< 20 ??ng/mL ??[id number] ng/mL ??Insufficient> 30 ??ng/mL ??Sufficient*Melissa MCCORMICK. N Engl J Med. 2007;[id number] is no well-established upper level of normal vitamin Dlevels. Some laboratories use 50 ng/mL as an upper limit ofnormal. However, toxicity is patient-dependent and may occurat any level. Careful correlation with the patient'spresentation is necessary and, if there is concern forvitamin D toxicity, treatment should be consideredirrespective of the serum level.Care must be taken in interpreting Vitamin D results fromdifferent laboratories and methodologies. ??Published datademonstrated that results from patients undergoinghemodialysis may show a negative bias when tested withvarious automated 25-OH vitamin D assays when compared toLC- MS/MS.When testing samples from patients whose predominant form ofVitamin D is Vitamin D2, such as patients receiving VitaminD2 supplementation, results that are subtherapeutic shouldbe confirmed with another method such as LC-MS/MS. Blood Venous blood specimen / Unknown 11/17/2024 12:40 PM EDT 11/17/2024 1:32 PM EDT Casie Angulo DO LAB BLOOD ORDERABLES Final R esult [facility] [address] [place] [phone] * Hepatitis C Antibody with Reflex to HCV, RNA, Quantitative, Real-Time PCR (11/17/2024 12:40 PM EDT) Hepatitis C Antibody Nonreactive Nonreactive [facility] Comment:Antibodies to HCV no t detected; does not exclude early acuteHCV infection. Blood Venous blood specimen / Unknown 11/17/2024 12:40 PM EDT 11/17/2024 1:32 PM EDT Casie Kev DO LAB BLOOD ORDERABLES Final R esult [facility] [address] [place] [address] [phone] * Chlamydia/N. Gonorrhoeae RNA, TMA, Urogenitial (11/17/2024 12:40 PM EDT) CT PCR NOT DETECTED Not Detect. [facility] Comment:A not detected test result does not exclude the possibilityof infection because test results can be affected byimproper specimen collection, concurrent antibiotic therapy,or the number of organisms in the specimen which may bebelow the sensitivity of the test. As with many diagnostictests, results from the Xpert CT/NG assay should beinterpreted in conjunction with other laboratory andclinical data available to the clinician.Xpert CT/NG performance has not been evaluated in patientsless than 14 years of age. The assay should not be used forthe evaluationof suspected sexual abuse or for other medico-legalindications. Additional testing is recommended in anycircumstance when false positive or false negative resultscould lead to adverse medical, social or psychologicalconsequences. NG PCR NOT DETECTED Not Detect. [facility] Comment:A not detected test result does not exclude the possibilityof infection because test results can be affected byimproper specimen collection, concurrent antibiotic therapy,or the number of organisms in the specimen which may bebelow the sensitivity of the test. As with many diagnostictests, results from the Xpert CT/NG assay should beinterpreted in conjunction with other laboratory andclinical data available to the clinician.Xpert CT/NG performance has not been evaluated in patientsless than 14 years of age. The assay should not be used forthe evaluationof suspected sexual abuse or for other medico-legalindications. Additional testing is recommended in anycircumstance when false positive or false negative resultscould lead to adverse medical, social or psychologicalconsequences. Urine Urethral structure / Unknown 11/17/2024 12:40 PM EDT 11/17/2024 1:05 PM EDT Narrative [facility] - 11/18/2024 6:03 AM EDT Urine Casie Angulo DO LAB MICROBIOLOGY - GENERAL O RDERABLES Final Result Performing Organization Address [facility]/ZIP Co de Phone Number [facility] [address] [place] [phone] * Hepatitis B surface antigen, EIA (11/17/2024 12:40 PM EDT) Hepatitis B Surface Ag Negative Negative [facility] Blood Venous blood specimen / Unknown 11/17/2024 12:40 PM EDT 11/17/2024 1:32 PM EDT Casie Angulo DO LAB BLOOD ORDERABLES Final R esult Performing Organization Address [facility] de Phone Number [facility] [address] [place] [phone] * RPR (Monitor) with Reflex to??Titer (11/17/2024 12:40 PM EDT) RPR (Monitor) w/Refl Titer NON-REACTI VE NON-REACT DIANA [facility] Comment:THIS TEST WAS PERFOR MED AT:[employer] [place] [phone] BUSTOS MD Rapid Plasma Reagin Ab Titer TNP [facility] Blood Venous blood specimen / Unknown 11/17/2024 12:40 PM EDT 11/17/2024 1:32 PM EDT Casie Angulo DO LAB BLOOD ORDERABLES Final R esult Performing Organization Address [facility] Co de Phone Number [facility] [address] [place] [phone] * HIV-1/2 Antigen and Antibodies, Fourth Generation, with Reflexes (11/17/2024 12:40 PM EDT) HIV AB/AG Nonreactive Nonreactive [facility] Comment:HIV-1 p24 Ag and/or HIV-1/HIV-2 Ab not detected.A test result that is nonreactive does not exclude thepossibility of exposure to or infection with HIV-1 and/orHIV-2. Nonreactive results in this assay for individualswith prior exposure to HIV-1 and/or HIV-2 may be due toantigen and antibody levels that are below the limit ofdetection of this assay.The [employer] HIV Ag/Ab Combo assay result andsupplemental assay results should be interpreted inconjunction with the patient's clinical presentation,history and other laboratory results. If the results areinconsistent with clinical evidence, additional testing issuggested to confirm the result. Blood Venous blood specimen / Unknown 11/17/2024 12:40 PM EDT 11/17/2024 1:32 PM EDT Casie Angulo DO LAB BLOOD ORDERABLES Final R esult Performing Organization Address [facility]/ZIP Co de Phone Number [facility] [address] [place] [phone] * Hepatitis B Surface Antibody, Qualitative (11/17/2024 12:40 PM EDT) Pathologist [facility] ~Hepatitis B Surface Antibody REACTIVE Nonreactive [facility] Comment:REACTIVE: > 11.99 mI U/mL Blood Venous blood specimen / Unknown 11/17/2024 12:40 PM EDT 11/17/2024 1:32 PM EDT Casie Angulo [employer] LAB BLOOD ORDERABLES Final R esult Performing Organization Address City/[facility] Co de Phone Number [facility] [address] [place] [phone] * (ABNORMAL) CBC (11/17/2024 12:40 PM EDT) White Blood Count 12.0(H) 4.8 - 10.8 X10*3/uL [facility] Red Blood Count 4.46 4.20 - 5.50 X10*6/uL [facility] Hemoglobin 13.7 12.0 - 16.0 g/dl [facility] Hematocrit 40.1 37.0 - 47.0 % [facility] Mean Corpuscular Volume 89.9 80.0 - 98.0 fL [facility] Mean Corpuscular Hemoglobin 30.7 27.0 - 33.0 pg [facility] Mean Corpuscular HGB Conc 34.2 31.0 - 35.0 g/dl [facility] Red Cell Distribution Width 13.2 11.0 - 16.0 % [facility] Platelet Count 359 160 - 400 X10*3/uL [facility] Mean Platelet Volume 9.4 9.4 - 12.3 fL [facility] NRBC Pct Auto 0.0 0.0 - 0.2 /100WBC [facility] NRBC Abs Auto 0.000 0.0 - 0.012 X10*3/uL [facility] Blood Venous blood specimen / Unknown 11/17/2024 12:40 PM EDT 11/17/2024 1:32 PM EDT Casie Angulo DO LAB BLOOD ORDERABLES Final R esult Performing Organization Address City/[facility]/ZIP Co de Phone Number [facility] [address] [place] [phone] * TSH (11/17/2024 12:40 PM EDT) Thyroid Stimulating Hormone 1.05 0.32 - 4.0 uIU/mL [facility] Comment:TSH 3rd Generation ( [facility]) Blood Venous blood specimen / Unknown 11/17/2024 12:40 PM EDT 11/17/2024 1:32 PM EDT Casie Angulo DO LAB BLOOD ORDERABLES Final R esult [facility] [address] [place] [phone] * T4, Free (11/17/2024 12:40 PM EDT) Free T4 (Free Thyroxine) 1.05 0.71 - 1.85 ng/dL [facility] Blood Venous blood specimen / Unknown 11/17/2024 12:40 PM EDT 11/17/2024 1:32 PM EDT Casie Angulo DO LAB BLOOD ORDERABLES Final R esult Performing Organization Address City/[facility]/ZIP Co de Phone Number [facility] [address] [place] [phone] * (ABNORMAL) Hemoglobin A1c (11/17/2024 12:40 PM EDT) Hemoglobin A1c 6.2(H) <6.0 % [facility] Comment:Hemoglobin A1C Refer ence Range Adults: 4.8 - 6.0 % Non diabetic: < 6.0 % Goal: < 7.0 %Additional Action Suggested: > 8.0 %Note: Hemoglobin A1c results are invalid for patients with abnormal amounts of HbF. Blood transfusions may impact the HbA1c concentration in the patient sample. Estimated Average Glucose 131 mg/dL [facility] Comment:eAG = Estimated ave rage glucose which is %A1C expressed asaverage glucose, using the formula of the A7H-GzejbfuAzcophn Glucose study (ADAG), Diabetes Care, Vol.31,#8,Mar. 2007 Blood Venous blood specimen / Unknown 11/17/2024 12:40 PM EDT 11/17/2024 1:32 PM EDT Casie Angulo DO LAB BLOOD ORDERABLES Final R esult [facility] [address] [place] [phone] * (ABNORMAL) Hepatic Function Panel (11/17/2024 12:40 PM EDT) Only the most recent of3 resultswithin the time period is included. Bilirubin, Total 0.5 0.0 - 1.0 mg/dL [facility] Bilirubin, Direct 0.2 0.0 - 0.5 mg/dL [facility] Aspartate Amino Transferase 17 5 - 31 U/L [facility] Alanine Aminotransferase 21 0 - 31 U/L [facility] Total Protein 8.1(H) 6.5 - 8.0 g/dL [facility] Albumin Level 4.5 3.5 - 5.0 g/dL [facility] Alkaline Phosphatase 83 39 - 117 U/L [facility] Blood Venous blood specimen / Unknown 11/17/2024 12:40 PM EDT 11/17/2024 1:32 PM EDT us Casie Angulo DO LAB BLOOD ORDERABLES Final R esult [facility] [address] [place] [phone] * Lipid Panel, Standard (11/17/2024 12:40 PM EDT) Triglycerides 81 <150 mg/dL [facility] Comment:Desirable Triglyceri de: less than 150 mg/dLBorderline High Triglyceride 150-199 mg/dLHigh Triglyceride: 200-499 mg/dLVery High Triglyceride: greater than or equal to 5OO mg/dL Cholesterol 162 <200 mg/dL [facility] Comment:Desirable Cholestero l: less than 200 mg/dLBorderline High Cholesterol: 200-239 mg/dLHigh Cholesterol: greater than 239 mg/dL LDL Cholesterol Calculated 99 <100 mg/dL [facility] Comment:Desirable LDL: less than 100 mg/dLNear Optimal/Above Optimal LDL: 110- 129 mg/dLBorderline High LDL: 130-159 mg/dLHigh LDL: 160-189 mg/dLVery High LDL: greater than or equal to 190 mg/dL HDL Cholesterol 47 >40 mg/dL [facility] Comment:Desirable HDL: great er than 40 mg/dL Note: This HDL assay may give artificially low results in patients with liver disease. Blood Venous blood specimen / Unknown 11/17/2024 12:40 PM EDT 11/17/2024 1:32 PM EDT Casie Angulo LAB BLOOD ORDERABLES Final R esult Performing Organization Address [facility] Co de Phone Number [facility] [address] [place] [phone] * (ABNORMAL) Basic Metabolic Panel (11/17/2024 12:40 PM EDT) Only the most recent of3 resultswithin the time period is included. Sodium 139 135 - 145 mmol/L [facility] Potassium 3.9 3.3 - 5.1 mmol/L [facility] Chloride 108 96 - 108 mmol/L [facility] Carbon Dioxide 25 22 - 29 mmol/L [facility] Anion Gap 10(L) 12 - 20 [facility] Urea Nitrogen (BUN) 11 9 - 16 mg/dL [facility] Creatinine, Serum 0.68 0.5 - 1.4 mg/dL [facility] Estimated Glomerular Filt Rate >60 [facility] Comment:Chronic Kidney Disea se: Estimated GFR < 60 mL/min/1.59x6Rehwzv Kidney Disease: Estimated GFR < 15 mL/min/1.73m2 Glucose 90 60 - 115 mg/dL [facility] Calcium 9.7 8.4 - 10.2 mg/dL [facility] Blood Venous blood specimen / Unknown 11/17/2024 12:40 PM EDT 11/17/2024 1:32 PM EDT Casie Angulo DO LAB BLOOD ORDERABLES Final R esult Performing Organization Address [facility]/ZIP Co de Phone Number [facility] [address] [place] [phone] * (ABNORMAL) POCT HGB A1C (11/17/2024 12:31 PM EDT) Hemoglobin A1C 6.4(A) 4.0 - 6.0 % QC Media Lot # [id number] Lot# Expiration Date ,026 Blood 11/17/2024 12:3 1 PM EDT Casie Goveahomerrody DO POINT OF CARE TEST ENTER/ANASTASIYA T ORDERABLES Final Result * POCT Glucose (11/17/2024 12:30 PM EDT) Glucose Blood, POC 103 60 - 200 mg/dL QC Media Lot # [id number] Lot# Expiration Date Blood Capillary blood specimen / Unknown 11/17/2024 12:30 PM EDT Casie Kev DO POINT OF CARE TEST ENTER/ANASTASIYA T ORDERABLES Final Result * XR KUB and Upright 2 Views (11/04/2024 3:31 AM EDT) Anatomical Region Laterality Modality Radiographic Meliza ging 11/04/2024 3:31 AM EDT Narrative 11/04/2024 3:33 AM EDT ? [facility] ?[address] ?[place] [address] ?XRay Report ? Signed ? Patient: Casie Maki ?MR#: [id number] ?? 2998 ? : 1985 ?Acct:[id number] ? Age/Sex: 39 / F ?ADM Date: 03/12/25 ? Loc: HO.ED ? Attending Dr: ? Ordering Physician: Melody Nolan ?? Date of Service: 11/04/24 ?? Procedure(s): XR KUB ?? Accession Number(s): [id number] ? cc: Melody Nolan; Casie Angulo DO ? CLINICAL HISTORY: pain ? 1 view abdomen ? Comparison: CT/MS/SR - CT ABDOMEN PELVIS W IV CON - 09/25/24 07:31 EST ? Findings: ?? Bowel-gas pattern is within normal limits. There is a moderate amount of ?? stool in the colon. There is no evidence of bowel obstruction. No ?? calcifications are seen within the regions of the kidneys or ureters. ?? There are phleboliths in the pelvis. ? Impression: ?? Bowel-gas pattern is within normal limits. ? This document has been electronically signed by: David Quarles MD on ?? 11/04/2024 03:31:37 ? Dictated By: ?David Quarles MD ? Signed By: ?<Electronically signed by David Quarles MD in OV> ? 11/04/24 0333 ? DD/ 0 ? TD/TT: 11/04/24330 ? [employer]: ? Procedure Note Donyung, Damion - 11/04/[address] [address] XRay Report Signed Patient: Matt Maki#: [id number] : 1985Acct:[id number] Age/Sex: 39 / FADM Date: 11/03/24 Loc: HO.ED Attending Dr: Ordering Physician: Melody Nolan Date of Service: 11/04/24 Procedure(s): XR KUB Accession Number(s): [id number] cc: Melody Nolan; Casie Angulo DO CLINICAL HISTORY: pain 1 view abdomen Comparison: CT/MS/SR - CT ABDOMEN PELVIS W IV CON - 09/25/24 07:31 EST Findings: Bowel-gas pattern is within normal limits. There is a moderate amount of stool in the colon. There is no evidence of bowel obstruction. No calcifications are seen within the regions of the kidneys or ureters. There are phleboliths in the pelvis. Impression: Bowel-gas pattern is within normal limits. This document has been electronically signed by: David Quarles MD on 11/04/2024 03:31:37 Dictated By: David Quarles MD Signed By: <Electronically signed by David Quarles MD in OV> 11/04/24332 DD/ 0 TD/TT: 11/04/24330 [facility] [employer]: [facility] External Provider IMG XR PROCEDURES Edited Result - Final * Urinalysis, Complete, with Reflex to Culture (11/03/2024 8:15 PM EDT) Color Urine Yellow [facility] Appearance Urine Cloudy [facility] PH 5.5 5.0 - 9.0 [facility] Glucose Urine UA Negative Negative mg/dL [facility] Urine Blood Negative Negative [facility] Specific Clute - Urine 1.015 1.005 - 1.025 [facility] Urine Protein Negative Neg-Trace mg/dL [facility] Urine Ketones Negative Negative mg/dL [facility] Nitrite Urine Negative Negative [facility] Leukocyte Esterase Urine Negative Negative [facility] RBC Urine 0-2 0 - 2 /HPF [facility] Urine WBC 0-5 0 - 5 /HPF [facility] Urine Squamous Epithelial Cell 3-5 0 - 2 /HPF [facility] Urine Bacteria None Seen None Seen [facility] Hyaline Casts, Urine 0-2 0 - 2 /LPF [facility] 11/03/2024 8:15 PM EDT 11/03/2024 8:23 PM EDT Narrative [facility] - 11/03/2024 8:47 PM EDT Urine, Clean Catch Generic External Data Provider LAB URINE ORDERAB LES Final Result [facility] [address] [place] [phone] * SARS-CoV-2 RNA, Influenza A/B, and RSV RNA, Ql NAAT (11/03/2024 8:15 PM EDT) Only the most recent of3 resultswithin the time period is included. Influenza A PCR NEGATIVE Negative [facility] Influenza B PCR NEGATIVE Negative [facility] Resp Syncy Virus RNA Qual PCR NEGATIVE Negative [facility] SARS COV2 PCR NEGATIVE Negative [facility] Comment:All test results mus t be [...] use by authorized laboratories.Testing performed on the [employer] GeneXpert utilizingreal-time RT-PCR.All SARS CoV2 and positive influenza A/B results arereported to [facility]. 11/03/2024 8:15 PM EDT 11/03/2024 8:23 PM EDT us Generic External Data Provider LAB MICROBIOLOGY - GENERAL ORDERABLES Final Result [facility] [address] [place] [phone] * (ABNORMAL) CBC auto differential (11/03/2024 8:15 PM EDT) Only the most recent of3 resultswithin the time period is included. White Blood Count 9.3 4.8 - 10.8 X10*3/uL [facility] Red Blood Count 3.98(L) 4.20 - 5.50 X10*6/uL [facility] Hemoglobin 12.2 12.0 - 16.0 g/dl [facility] Hematocrit 35.4(L) 37.0 - 47.0 % [facility] Mean Corpuscular Volume 88.9 80.0 - 98.0 fL [facility] Mean Corpuscular Hemoglobin 30.7 27.0 - 33.0 pg [facility] Mean Corpuscular HGB Conc 34.5 31.0 - 35.0 g/dl [facility] Red Cell Distribution Width 13.2 11.0 - 16.0 % [facility] Platelet Count 332 160 - 400 X10*3/uL [facility] Mean Platelet Volume 9.2(L) 9.4 - 12.3 fL [facility] Neutrophils Percent Auto 51.4 45 - 73 % [facility] Imm Gran Pct Auto 0.3 0.0 - 0.4 % [facility] Lymphocytes Percent Auto 40.0 20 - 40 % [facility] Monocytes Percent Auto 6.4 2 - 11 % [facility] Eosinophils Percent Auto 1.5 0 - 4 % [facility] Basophils Percent Auto 0.4 0 - 2 % [facility] NRBC Pct Auto 0.0 0.0 - 0.2 /100WBC [facility] Neutrophils Absolute Auto 4.8 2.0 - 8.3 x10*3/uL [facility] Imm Gran Abs Auto 0.03 0.00 - 0.03 X10*3/uL [facility] Lymphocytes Absolute Auto 3.7 1.2 - 4.9 X10*3/uL [facility] Monocytes Absolute Auto 0.6 0.1 - 1.2 X10*3/uL [facility] Eosinophils Absolute Auto 0.1 0.0 - 0.4 X10*3/uL [facility] Basophils Absolute Auto 0.0 0.0 - 0.2 X10*3/uL [facility] NRBC Abs Auto 0.000 0.0 - 0.012 X10*3/uL [facility] 11/03/2024 8:15 PM EDT 11/03/2024 8:23 PM EDT us Generic External Data Provider LAB BLOOD ORDERAB LES Final Result [facility] [address] [place] [phone] * hCG, Total, Quantitative (11/03/2024 8:15 PM EDT) Only the most recent of3 resultswithin the time period is included. HCG Quantitative <2 mIU/mL [facility] Comment:Weeks post LMP Appro ximate hCG(Last Menstrual Period) Range (mIU/ml)3 - 4 weeks 9 - 1304 - 5 weeks 75 - 2,6005 - 6 weeks 850 - 20,8006 - 7 weeks 4000 - 100,2007 - 12 weeks 11,500 - 289,13776 - 16 weeks 18,300 - 137,61962 - 29 weeks (2nd trimester) 1,400 - 53,36185 - 41 weeks (3rd trimester) 940 - 60,000The [facility] B-hCG assay is used for the early detection ofpregnancy; it cannot be used to diagnose any conditionunrelated to . If a B-hCG level is not supportedby the clinical evidence, results should be confirmed by analternative method (qualitative urine hCG, for example). 11/03/2024 8:15 PM EDT 11/03/2024 8:23 PM EDT Generic External Data Provider LAB BLOOD ORDERAB LES Final Result Performing Organization Address [facility]/ZIP Co de Phone Number [facility] [address] [place] [phone] * Lipase (11/03/2024 8:15 PM EDT) Only the most recent of3 resultswithin the time period is included. Lipase 26 8 - 78 U/L [facility] 11/03/2024 8:15 PM EDT 11/03/2024 8:23 PM EDT Generic External Data Provider LAB BLOOD ORDERAB LES Final Result Performing Organization Address City/[facility]/ZIP Co de Phone Number [facility] [address] [place] [phone] * (ABNORMAL) Comprehensive Metabolic Panel (11/03/2024 8:15 PM EDT) Sodium 138 135 - 145 mmol/L [facility] Potassium 3.7 3.3 - 5.1 mmol/L [facility] Chloride 107 96 - 108 mmol/L [facility] Carbon Dioxide 25 22 - 29 mmol/L [facility] Anion Gap 10(L) 12 - 20 [facility] Urea Nitrogen (BUN) 13 9 - 16 mg/dL [facility] Creatinine, Serum 0.65 0.5 - 1.4 mg/dL [facility] Creatinine Clr Calc Pharmacy 136.6 [facility] Comment:Provided height and weight: 170.18 cm,97.522 kg.eGFR (calculated from the MDRD study equation) and eCrCl(calculated from the Cockcroft-Gault equation) are based ondifferent parameters and may not yield comparable results.If eCrCl result is absurd, please check patient'sheight/weight. Estimated Glomerular Filt Rate >60 [facility] Comment:Chronic Kidney Disea se: Estimated GFR < 60 mL/min/1.90s5Drqoew Kidney Disease: Estimated GFR < 15 mL/min/1.73m2 Glucose 191(H) 60 - 115 mg/dL [facility] Calcium 8.9 8.4 - 10.2 mg/dL [facility] Bilirubin, Total 0.3 0.0 - 1.0 mg/dL [facility] Aspartate Amino Transferase 23 5 - 31 U/L [facility] Alanine Aminotransferase 27 0 - 31 U/L [facility] Total Protein 7.3 6.5 - 8.0 g/dL [facility] Albumin Level 4.0 3.5 - 5.0 g/dL [facility] Alkaline Phosphatase 71 39 - 117 U/L [facility] 11/03/2024 8:15 PM EDT 11/03/2024 8:23 PM EDT us Generic External Data Provider LAB BLOOD ORDERAB LES Final Result [facility] [address] [place] [phone] * US Abdomen Complete (09/29/2024 6:07 AM EST) Anatomical Region Laterality Modality Abdomen Ultrasound 09/29/2024 6:07 AM EST Narrative 09/29/2024 6:09 AM EST ? [facility] ?[address] ?[place] [address] ? Ultrasound Report ? Signed ? Patient: Maki,Casie ?MR#: [id number] ?? 2998 ? : 1985 ?Acct:[id number] ? Age/Sex: 39 / F ?ADM Date: 09/28/24 ? Loc: HO.US ? Attending Dr: Casie Angulo DO ? Ordering Physician: Casie Angulo DO ?? Date of Service: 09/28/24 ?? Procedure(s): US abdomen complete ?? Accession Number(s): [id number] ? cc: Casie Angulo DO ? CLINICAL HISTORY: intermittent RUQ pain ? US abdomen complete ? Comparison: None ? Findings: ?? The visualized pancreas is normal. ?? The aorta and inferior vena cava are normal caliber. ? The liver is normal in size and echotexture. ?? There is no intrahepatic bile duct dilatation. ?? The common duct is 3 mm in diameter. ?? The gallbladder is normal. There is no sonographic Nath sign. ?? The main portal vein is antegrade. ? The right kidney is 11.5 cm in length. ?? The left kidney is 12.0 cm in length. ?? The spleen is normal. ?? No ascites. ? IMPRESSION: ?? 1. Normal complete abdominal ultrasound. ? This document has been electronically signed by: Dayan Leblanc MD on ?? 09/29/2024 06:07:11 ? Dictated By: ?Dayan Leblanc MD ? Signed By: ?<Electronically signed by Dayan Leblanc MD in OV> ?09/29/24 0608 ? DD/ 06 ? TD/TT: 09/29/24 0607 ? [employer]: ? Procedure Note Nicholas, Image - 09/29/[address] [address] Ultrasound Report Signed Patient: Matt Maki#: [id number] 2998 : 1985Acct:[id number] Age/Sex: 39 / FADM Date: 09/28/24 Loc: HO. Attending Dr: Casie Angulo DO Ordering Physician: Casie Angulo DO Date of Service: 09/28/24 Procedure(s): US abdomen complete Accession Number(s): [id number] cc: Casie Angulo DO CLINICAL HISTORY: intermittent RUQ pain US abdomen complete Comparison: None Findings: The visualized pancreas is normal. The aorta and inferior vena cava are normal caliber. The liver is normal in size and echotexture. There is no intrahepatic bile duct dilatation. The common duct is 3 mm in diameter. The gallbladder is normal. There is no sonographic Nath sign. The main portal vein is antegrade. The right kidney is 11.5 cm in length. The left kidney is 12.0 cm in length. The spleen is normal. No ascites. IMPRESSION: 1. Normal complete abdominal ultrasound. This document has been electronically signed by: Dayan Leblanc MD on 09/29/2024 06:07:11 Dictated By: Dayan Leblanc MD Signed By: <Electronically signed by Dayan Leblanc MD in OV> 09/29/24 0608 DD/ 0607 TD/TT: 09/29/24 0607 [employer]: us Casie Angulo DO IMG US PROCEDURES Edited Res ult - Final * CT Abdomen Pelvis w/ Contrast (09/25/2024 8:38 AM EST) Anatomical Region Laterality Modality Body, Pelvis, Abdomen Computed T omography 09/25/2024 8:38 AM EST Narrative 09/25/2024 8:39 AM EST ? [facility] ?[address] ?[place] [address] ? [address] Scan Report ? Signed ? Patient: Maki,Casie ?MR#: [id number] ?? 2998 ? : 1985 ?Acct:[id number] ? Age/Sex: 39 / F ?ADM Date: 02/01/25 ? Loc: HO.ED ? Attending Dr: ? Ordering Physician: Jania Velázquez ?? Date of Service: 09/25/24 ?? Procedure(s): CT abdomen pelvis w IV con ?? Accession Number(s): [id number] ? cc: Casie Angulo DO; Jania Velázquez ? Report Number: ?? [id number]: Total DLP = ??675.00 mGy-cm ? CLINICAL HISTORY: diffuse abd pain, constipation, flank pain ? CT abdomen and pelvis with contrast ? Comparison: CT/MS/SR - CT ABDOMEN PELVIS W IV CON - 10/02/23 12:21 EST ? Findings: ?? No consolidation or effusion. ? The gallbladder and solid organs are within normal limits. No renal ?? stones. ?? No bowel obstruction, pneumoperitoneum, or pneumatosis. ? Pelvic contents unremarkable. Appendix not definitively seen but there are ?? no inflammatory changes in the region of the cecum. ?? No adenopathy or fluid collections. Nonaneurysmal aorta. ?? No acute fracture. ? IMPRESSION: ?? No acute findings. No evidence of biliary obstruction, bowel obstruction ?? or obstructive uropathy. ?? Appendix not seen but there are no inflammatory changes in the right lower ?? quadrant ? This document has been electronically signed by: Dayan Leblanc MD on ?? 09/25/2024 08:38:29 ? Dictated By: ?Dayan Leblanc MD ? Signed By: ?<Electronically signed by Dayan Leblanc MD in OV> ?09/25/24 0839 ? DD/ 7 ? TD/TT: 09/25/24837 ? [employer]: ? Procedure Note Nicholas, Damion - 09/25/[address] [place] [address] [address] Scan Report Signed Patient: Casie MakiMR#: [id number] 2998 : 1985Acct:[id number] Age/Sex: 39 / FADM Date: 09/25/24 Loc: HO.ED Attending Dr: Ordering Physician: Jania Velázquez Date of Service: 09/25/24 Procedure(s): CT abdomen pelvis w IV con Accession Number(s): [id number] cc: Casie Angulo DO; Jania Velázquez Report Number: [id number]: Total DLP = 675.00 mGy-cm CLINICAL HISTORY: diffuse abd pain, constipation, flank pain CT abdomen and pelvis with contrast Comparison: CT/MS/SR - CT ABDOMEN PELVIS W IV CON - 10/02/23 12:21 EST Findings: No consolidation or effusion. The gallbladder and solid organs are within normal limits. No renal stones. No bowel obstruction, pneumoperitoneum, or pneumatosis. Pelvic contents unremarkable. Appendix not definitively seen but there are no inflammatory changes in the region of the cecum. No adenopathy or fluid collections. Nonaneurysmal aorta. No acute fracture. IMPRESSION: No acute findings. No evidence of biliary obstruction, bowel obstruction or obstructive uropathy. Appendix not seen but there are no inflammatory changes in the right lower quadrant This document has been electronically signed by: Dayan Leblanc MD on 09/25/2024 08:38:29 Dictated By: Dayan Leblanc MD Signed By: <Electronically signed by Dayan Leblanc MD in OV> 09/25/2439 DD/ 7 TD/TT: 09/25/24837 [employer]: [facility] External Provider IMG CT PROCEDURES Edited Result - Final * (ABNORMAL) Urinalysis w/reflex microscopic (09/25/2024 8:06 AM EST) Color Urine Yellow [facility] Appearance Urine Cloudy [facility] PH 7.5 5.0 - 9.0 [facility] Glucose Urine UA Negative Negative mg/dL [facility] Urine Blood Negative Negative [facility] Specific Clute - Urine >=1.030(H) 1.005 - 1.025 [facility] Urine Protein Negative Neg-Trace mg/dL [facility] Urine Ketones Negative Negative mg/dL [facility] Nitrite Urine Negative Negative [facility] Leukocyte Esterase Urine Negative Negative [facility] 09/25/2024 8:06 AM EST 09/25/2024 8:09 AM EST Narrative [facility] - 09/25/2024 8:16 AM EST [id number], Clean Catch Generic External Data Provider LAB URINE ORDERAB LES Final Result [facility] [address] [place] [phone] * High Sensitivity Troponin I (09/25/2024 6:53 AM EST) Only the most recent of2 resultswithin the time period is included. TROPONIN I HIGH SENSITIVITY <2.7 <3.5 - 17.0 ng/L [facility] Comment:The [facility] high sens itivity Troponin-I results should beused in conjunction with other diagnostic information suchas ECG, clinical observations and information, and patientsymptoms to aid in the diagnosis of SD. 09/25/2024 6:53 AM EST 09/25/2024 6:56 AM EST Generic External Data Provider LAB BLOOD ORDERAB LES Final Result Performing Organization Address [facility] de Phone Number [facility] [address] [place] [phone] * Magnesium (09/25/2024 6:53 AM EST) Only the most recent of2 resultswithin the time period is included. Magnesium 2.1 1.6 - 2.6 mg/dL [facility] [facility] 09/25/2024 6:53 AM EST 09/25/2024 6:56 AM EST Generic External Data Provider LAB BLOOD ORDERAB LES Final Result Performing Organization Address [facility] de Phone Number [facility] [address] [place] [phone] * US Abdomen Limited (09/13/2024 1:10 PM EST) Anatomical Region Laterality Modality Abdomen Ultrasound 09/13/2024 1:10 PM EST Narrative 09/13/2024 1:34 PM EST ? [facility] ?[address] ?[place] [address] ? Ultrasound Report ? Signed ? Patient: Maki,Casie ?MR#: [id number] ?? [id number] ? : 1985 ?Acct:[id number] ? Age/Sex: 39 / F ?ADM Date: 09/13/24 ? Loc: HO.ED ? Attending Dr: ? Ordering Physician: Jania Velázquez ?? Date of Service: 09/13/24 ?? Procedure(s): US abdomen limited ?? Accession Number(s): [id number] ? cc: Casie Angulo DO; Jania Velázquez [...] signed by Hernandez Walsh MD in OV> ?09/13/25 1331 ? DD/DT: /20/25 1310 ? TD/TT: 09/13/25 1326 ? Mercury Purifier: ? Procedure Note Donotuseinterpreter, Image - 09/13/[address] [address] Ultrasound Report Signed Patient: Matt Maki#: [id number] : 1985Acct:[id number] Age/Sex: 39 / FADM Date: 09/13/24 Loc: HO.ED Attending Dr: Ordering Physician: Jania Velázquez Date of Service: 09/13/24 Procedure(s): US abdomen limited Accession Number(s): [id number] cc: Casie Angulo DO; Jania Velázquez EXAMINATION: [...] by: Hernandez Walsh MD 09/13/2024 01:31 PM [facility] Dictated By: Hernandez Walsh MD Signed By: <Electronically signed by Hernandez Walsh MD in OV> 09/13/24 1331 DD/ 1310 TD/TT: 09/13/24 1326 Mercury Purifier: us [facility] External Provider IMG US PROCEDURES Final Result * Hm Pap Smear (04/14/2023) Pap Negative for intraephithelial lesion or malignancy Negative for intraephithelial lesion or malignancy, Other HPV Not Detected Undetected, Indeterminate, Quantitative, Not Detected Historical Provider HEALTH MAINTENANCE Final Result * ALBUMIN, RANDOM [...] Most Recently Relevant to Health Maintenance Insurance DENTAL - HSN FULL (MEDICAID) Care Teams Sugar Reprocess Operator Head Relationship Specialty Start Date End Date Casie Angulo DO [address] [place] [address] PCP - General Family Medicine 08/25/18 Antoinette Liu PharmD [address] [place] [address] Pharmacist Internal Medicine 05/01/23
--- OUTSIDE RECORDS SUMMARY | 2024-12-01 18:52 | XMS_ITS | Encounter Summary ---
Author Organization [employer] Address [address] [place] [address] [address] [place] [address] Care Team Providers Care Public Health Veterinarian Name Role Phone Casie Angulo DO Primary Care Provider [phone] Alvin Caldera PharmD Unavailable Unavail able Antoinette Liu PharmD Unavailable Encounter Details Date Type Department Care Team (Late st Contact Info) Description 10/08/2022 Orders Only [facility] [address] [place], [place] [phone] Casie Pinedo LPN Social History Tobacco Use [...] Description 12/31/2024 10:00 AM EDT Office Visit [facility] [address] [place], [place] [phone] Casie Angulo DO [address] [place], [place] [phone] documented as of this encounter Visit Diagnoses Not on filedocumented in this encounter Care Teams Public Health Veterinarian Relationship Specialty Start Date End Date Casie Angulo DO [address] [place], [place] [phone] PCP - General Family Medicine 08/25/18 Alvin Caldera, PharmD [address] [place] [address] Pharmacist Internal Medicine 12/10/22 04/30/23 Antoinette Liu, BriandaD [address] [place] [address] Pharmacist Internal Medicine 05/01/23 documented as of this encounter
--- OUTSIDE RECORDS SUMMARY | 2024-12-01 18:52 | XMS_ITS | Encounter Summary ---
Author Organization [employer] Address [address] [place] [address] 7t [place] [address] Care Team Providers Care Instructional Support Technician Name Role Phone Casie Angulo Primary Care Provider [phone] Antoinette Liu PharmD Unavailable [phone] Reason for Visit * Reason Onset Date Comments unable to post insurance 11/03/2024 Encounter Details Date Type Department Care Team ([facility] st Contact Info) Description 11/03/2024 Telephone [facility] [address] [place] [address] Nicole Lozano DDS [address] [place] [address] unable to post insurance Social History Tobacco Use Types Packs/Day Years [...] encounter Miscellaneous Notes * Telephone Encounter - Nancie Mccann - 11/05/2024 9:34 AM EDT Patient is coming in for 1pm emergency appt. Unable to post [facility] insurance portal not running on [employer] * Telephone Encounter - Nancie Mccann - 11/03/2024 9:13 AM EDT Patient cancelled appt today 10 am same day. She wanted to reschedule. Patient has been informed that office will reach out to rs appt. Due to same day cancellation. Patient understood documented in this encounter Plan of Treatment Upcoming Encounters Date Type Department Care Team (Late st Contact Info) Description 12/31/2024 10:00 AM EDT Office Visit [facility] [address] [place] [address] Casie Angulo DO [address] [place] [address] documented as of this encounter Goals Goal Patient Goal Type Associated Problems Recent Progress Patient-Stated? Author Hemoglobin A1c < 7 Result Component 6.2( 12:40 PM EDT) No Dellogono, Alvin, PharmD Record your blood sugar as directed Result Component No Antoinette Liu PharmD Note: Encouraged patient to increase frequency of SMBG monitoring to guide tx modification. documented as of this encounter Visit Diagnoses Not on filedocumented in this encounter Additional Health Concerns Assessment Noted Time PHQ-9 Depression Total Score: 8 11/19/19 24 9:38 AM EDT documented as of this encounter Care Teams Instructional Support Technician Relationship Specialty Start Date End Date Casie Angulo DO [address] [place] [address] PCP - General Family Medicine 08/25/18 Antoinette Liu PharmD [address] [place] [address] Pharmacist Internal Medicine 05/01/23 documented as of this encounter
--- OUTSIDE RECORDS SUMMARY | 2024-12-01 18:52 | XMS_ITS | Encounter Summary ---
Author Organization [employer] Address [address] [place] [address] [address] [place] [address] Care Team Providers Care Manager Of Product Name Role Phone Casie Angulo DO Primary Care Provider [phone] Alvin Caldera PharmD Unavailable Unavail able Antoinette Liu PharmD Unavailable [phone] Reason for Visit * Reason Comments Med Refill Encounter Details Date Type Department Care Team (Late st Contact Info) Description 02/06/2023 Refill [facility] [address] [place] [address] Casie Angulo DO [address] [place] [address] Social History Tobacco Use Types Packs/Day Years Used Date Smoking Tobacco: Every Day Cigarettes Smokeless Tobacco: Never Comments:Wants to quit, does not want to use medication, not ready at this time. Alcohol Use Standard Drinks/Week Comments Never 0 [...] suspected to have Coronavirus/COVID-19? No / Unsure 01/30/2023 1:41 PM EDT documented as of this encounter Plan of Treatment Upcoming Encounters Date Type Department Care Team (Late st Contact Info) Description 12/31/2024 10:00 AM EDT Office Visit [facility] [address] [place] [address] Casie Angulo DO [address] [place] [address] documented as of this encounter Goals Goal Patient Goal Type Associated Problems Recent Progress Patient-Stated? Author Hemoglobin A1c < 7 Result Component 6.2(11/17/2024 12:40 PM EDT) No Alvin Caldera, PharmD documented as of this encounter Visit Diagnoses Not on filedocumented in this encounter Additional Health Concerns Assessment Noted Time PHQ-9 Depression Total Score: 0 12/19/19 10:40 AM EDT documented as of this encounter Care Teams Manager Of Product Relationship Specialty Start Date End Date Casie Angulo DO [address] [place] [address] PCP - General Family Medicine 08/25/18 Alvin Caldera, PharmD [address] [place] [phone] Pharmacist Internal Medicine 12/10/22 04/30/23 Antoinette Liu, BriandaD [address] [place] [address] Pharmacist Internal Medicine 05/01/23 documented as of this encounter
--- OUTSIDE RECORDS SUMMARY | 2024-12-01 18:52 | XMS_ITS | Encounter Summary ---
Author Organization [employer] Address [address] [place] [address] [address] [place] [address] Care Team Providers Care Voltage Regulator Assembler Name Role Phone Casie Angulo DO Primary Care Provider [phone] Alvin Caldera PharmD Unavailable Unavail able Antoinette Liu PharmD Unavailable [phone] Encounter Details Date Type Department Care Team (Late st Contact Info) Description 09/19/2022 Orders Only [facility] [address] [place] [phone] Whitney James LPN Social History Tobacco Use [...] Description 12/31/2024 10:00 AM EDT Office Visit [facility] [address] [place] [phone] Casie Angulo DO [address] [place] [address] documented as of this encounter Visit Diagnoses Not on filedocumented in this encounter Care Teams Voltage Regulator Assembler Relationship Specialty Start Date End Date Casie Angulo DO [address] [place] [address] PCP - General Family Medicine 08/25/18 Alvin Caldera, PharmD [address] [place] [address] Pharmacist Internal Medicine 12/10/22 04/30/23 Antoinette Liu, BriandaD [address] [place] [address] Pharmacist Internal Medicine 05/01/23 documented as of this encounter
== END 2024-12-01 18:49 | disposition home or self-care (01) ==
LOC: HO.MRI 18:48
PROVIDERS: PCP Family Medicine; Visit Provider Family Medicine
DX: R20.2 Paresthesia of skin (principal)
CPT/HCPCS: 70551

== ENCOUNTER 2024-12-23 09:33 | Outpatient (REF) | payer OTHER, SELFPAY ==
--- OUTSIDE RECORDS SUMMARY | 2024-12-23 10:27 | XMS_ITS | Clinical Summary ---
Author Organization 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 30 tablet 11 4 Active FreeStyle lancetsIndicati ons:Type 2 diabetes mellitus without complication, without long-term current use of insulin ([facility]) 1 each by Other route 2 times daily. USE TWICE DAILY 100 each 4 Active glucose blood (FREESTYLE LITE) test stripIndication s:Type 2 diabetes mellitus without complication, without long-term current use of insulin ([facility]) USE TO TEST TWICE A DAY 100 strip 4 Active UltiCare Alcohol Swabs 70 % padsIndications :Type 2 diabetes mellitus without complication, without long-term current use of insulin ([facility]) USE 1 SWAB TOPICALLY 2 TIMES EVERY DAY 100 each 4 Active cholecalciferol (Vitamin D-3) 50 MCG (2000 UT) capsuleIndicati ons:Vitamin D deficiency Take 1 [...] each 4 Active varenicline (Chantix) 1 MG tabletIndicatio ns:Tobacco [...] capsule 3 5 10/01/19 26 Active simethicone (Mylicon,Gas-X) 125 MG capsule Take 1 capsule (125 mg) by mouth every 6 (six) hours if needed for flatulence. 30 capsule 3 5 Active ibuprofen 600 MG tablet Take 1 tablet (600 mg) by mouth every 6 (six) hours if needed for mild pain for up to 20 doses. 20 tablet 5 Active Junel FE 1.530 1.5-30 MG-MCG tablet Take 1 tablet by [...] times daily. 90 capsule 3 5 11/25/19 Active Tirzepatide (Mounjaro) 5 MG/0.5ML solution auto-injector Inject 5 mg under the skin 1 (one) time per week. 4 11/25/19 25 Discontinu ed(Side effects) Active Problems Problem Noted Date Diagnosed Date [...] pt to come get examined today at [facility] Will repeat labs due to Hx of leukocytosis and r/o UA Recommended to hold Metformin x 2 days and see if Sx improved Unclear if related to pelvic congestion syndrome Recommend to be seen in the [facility] due to nasal congestion and other Sx, may needs to be tested for viral diseases, ei. covid and flu Acute frontal sinusitis 06/03/2023 02/0 02/2024 Low-lying placenta 11/27/2022 AMA (advanced maternal age) multigravida 35+ 11/27/2022 Depression 10/16/2022 12/18/2022 Smoker 10/16/2022 11/27/2022 Body aches 07/29/2018 11/27/2022 Alopecia 07/25/2015 12/18/2022 Chronic migraine 07/25/2015 10/01/2023 Encounters Date Type Department Care Team Description 12/06/2024 Telephone [facility] [address] [place] [phone] Casie Angulo DO Results 11/24/2024 11:30 AM EDT Office Visit [facility] [address] [place] [phone] Casie Angulo DO Paresthesia of left arm and leg (Primary Dx) 11/24/2024 Travel 11/20/2024 10:20 AM EDT Office Visit [facility] [address] [place] [phone] Tarun La MD Myalgia, multiple sites (Primary Dx) 11/17/2024 11:15 AM EDT Office Visit [facility] [address] [place] [phone] Casie Angulo DO Chronic abdominal pain (Primary Dx); Chronic constipation; Mid back pain on right side; Pelvic congestion syndrome; Type 2 diabetes mellitus with other specified complication, unspecified whether manager long term care insulin use ([facility]) 11/17/2024 Travel 11/05/2024 11:30 AM EDT Office Visit [facility]ULT [facility]AL [address] [place] [address] Norma Abarca 11/03/2024 Orders Only GENERIC EXTERNAL DATA DEPARTMENT Provider, Generic External Data 11/03/2024 Telephone [facility] AD[facility] D[facility] [address] [facility] [place] [address] Nicole Lozano DDS unable to post insurance 10/25/2024 11:30 AM EST Office Visit [facility] ADULT [facility]ENT[facility] [address] [facility] [place] [address] Pritesh Abarcadevante 10/25/2024 Telephone [facility] [address] [place] [address] Casie Angulo DO Appointment Request 10/25/2024 Travel 10/01/2024 11:45 AM EST [facility] [address] [place] [address] Casie Angulo DO 10/01/2024 Travel 09/27/2024 Telephone [facility] [address] [place] [address] Maddie Crenshaw, DEEPAK Appt R/S 09/25/2024 Orders Only GENERIC EXTERNAL DATA DEPARTMENT Provider, Generic External Data from Last 3 Months Immunizations Name Administration [...] Description 12/31/2024 10:00 AM EDT Office Visit [facility] [address], [place] [phone] Casie Angulo DO [address] [place] [address] Health Maintenance Due Date Last Done Comments [...] Procedure Name Priority Date/Time Associated Diagnosis Comments MR BRAIN WO CONTRAST Routine 12/01/2024 7:06 PM EDT Paresthesia of left arm and leg HEPATITIS B SURFACE ANTIBODY, QUALITATIVE Routine 11/17/2024 [...] complication, without long-term current use of insulin ([facility]) Other hyperlipidemia Chronic constipation Chronic allergic rhinitis RUQ pain Healthcare maintenance T4, FREE Routine 11/17/2024 12:40 PM EDT Type 2 diabetes mellitus without complication, without long-term current use of insulin ([facility]) Other hyperlipidemia Chronic constipation Chronic allergic rhinitis RUQ pain Healthcare maintenance CHLAMYDIA/N. GONORRHOEAE RNA, TMA, UROGENITAL Routine 11/17/2024 12:40 PM EDT Type 2 diabetes mellitus without complication, without long-term current use of insulin ([facility]) Other hyperlipidemia Chronic constipation Chronic allergic rhinitis RUQ pain Healthcare maintenance POCT GLYCATED HEMOGLOBIN, TOTAL Routine 11/17/2024 12:31 PM EDT Type 2 diabetes mellitus with other specified complication, unspecified whether manager long term care insulin use (CMS/HCC) POCT GLUCOSE Routine 11/17/2024 12:30 PM EDT Type 2 diabetes mellitus with other specified complication, unspecified whether manager long term care insulin use ([facility]) CASE PRESENTATION, DETAILED AND EXTENSIVE TREATMENT PLANNING [...] QL NAAT Routine 09/25/2024 6:53 AM EST PROPHYLAXIS - ADULT Routine 04/07/2024 [...] Recently Relevant to Health Maintenance Results * MR Brain w/o Contrast (12/01/2024 7:06 PM EDT) Anatomical Region Laterality Modality Brain Magnetic Resonan ce 12/01/2024 7:06 PM EDT Narrative 12/02/2024 7:12 AM EDT ? [employer] ?[address] ?[place] [address] ? Magnetic Resonance Report ? Signed ? Patient: Maki,Casie ?MR#: [id number] ?? [id number] ? : 1985 ?Acct:[id number] ? Age/Sex: 39 / F ?ADM Date: 04/09/25 ? Loc: HO.MRI ? Attending Dr: Casie Angulo DO ? Ordering Physician: Casie Angulo DO ?? Date of Service: 12/01/24 ?? Procedure(s): MR head/brain wo con ?? Accession Number(s): [id number] ? cc: Casie Angulo DO ? EXAMINATION: ?? MR BRAIN WITHOUT CONTRAST ? CLINICAL INFORMATION: ?? Tingling and numbness, left hemibody. ? COMPARISON: ?? Correlated to CT dated May 04, 2024. ? TECHNIQUE: ?? MRI of the brain was obtained using routine sequences without contrast. ? FINDINGS: ?? No restricted diffusion. ?? No acute intracranial hemorrhage, mass effect, midline shift, ?? hydrocephalus or herniation. ?? Bilateral, multifocal, scattered, punctate subcortical and deep white ?? matter hyperintense T2 FLAIR signal involving centrum semiovale and ?? orta radiata. ?? Mc-white matter differentiation is normal. ?? Posterior cranial fossa contents demonstrated no signal abnormality or ?? masses. ?? Sellar/suprasellar region is normal. ?? Craniocervical junction is intact and normal. ?? Flow-void signal within the main cerebral vessels is normal. ?? 12 mm retention cyst, left maxillary sinus. ?? Poor dentition. ? MR/MR head/brain wo con ?? IMPRESSION: ?? No acute stroke/nonhemorrhagic ischemia. ?? Bilateral punctate white matter signal abnormality. Demyelinating ?? process cannot be excluded. ? Electronically signed by: ??Issac Wilosn MD ??12/02/2024 07:09 AM ?? EDT RP ? Dictated By: ?Issac Mancini MD ? Signed By: ?<Electronically signed by Issac Sy MD in OV> ? 12/02/24 0709 ? DD/ 05 ? TD/TT: 12/01/240 ? Cpo: ? Procedure Note Damion Peterson - 12/02/[address] [address] Magnetic Resonance Report Signed Patient: Casie MakiMR#: [id number] : 1985Acct:[id number] Age/Sex: 39 / FADM Date: 12/01/24 Loc: HO.MRI Attending Dr: Casie Angulo DO Ordering Physician: Casie Angulo DO Date of Service: 12/01/24 Procedure(s): MR head/brain wo con Accession Number(s): [id number] cc: Casie Angulo DO EXAMINATION: MR BRAIN WITHOUT CONTRAST CLINICAL INFORMATION: Tingling and numbness, left hemibody. COMPARISON: Correlated to CT dated May 04, 2024. TECHNIQUE: MRI of the brain was obtained using routine sequences without contrast. FINDINGS: No restricted diffusion. No acute intracranial hemorrhage, mass effect, midline shift, hydrocephalus or herniation. Bilateral, multifocal, scattered, punctate subcortical and deep white matter hyperintense T2 FLAIR signal involving centrum semiovale and orta radiata. Mc-white matter differentiation is normal. Posterior cranial fossa contents demonstrated no signal abnormality or masses. Sellar/suprasellar region is normal. Craniocervical junction is intact and normal. Flow-void signal within the main cerebral vessels is normal. 12 mm retention cyst, left maxillary sinus. Poor dentition. MR/MR head/brain wo con IMPRESSION: No acute stroke/nonhemorrhagic ischemia. Bilateral punctate white matter signal abnormality. Demyelinating process cannot be excluded. Electronically signed by: Issac Wilson MD 12/02/2024 07:09 AM EDT Dictated By: Issac Mancini MD Signed By: <Electronically signed by Issac Sy MDin OV> 12/02/24 0709 DD/ 1906 TD/TT: 12/01/24 192 Cpo: us Casie Angulo DO IMG MRI PROCEDURES Final Res ult * Vitamin D, 25-Hydroxy, Total, Immunoassay (11/17/2024 12:40 PM EDT) Vitamin D 25-OH Total 30.7 >30 ng/mL [facility] Comment: Health Based Reference Values*< 20 ??ng/mL ??Aytfuzqcy61-63 ng/mL ??Insufficient> 30 ??ng/mL ??Sufficient*Melissa MCCORMICK. N [...] Angulo DO LAB BLOOD ORDERABLES Final R [facility] Performing Organization Address [facility]/ZIP Co de Phone Number [facility] [address] [place] [phone] * Hepatitis C Antibody with Reflex to HCV, RNA, Quantitative, Real-Time PCR (11/17/2024 12:40 PM EDT) Hepatitis C Antibody Nonreactive Nonreactive [facility] Comment:Antibodies to HCV no t detected; does not exclude early acuteHCV infection. Blood Venous blood specimen / Unknown 11/17/2024 12:40 PM EDT 11/17/2024 1:32 PM EDT Casie Angulo DO LAB BLOOD ORDERABLES Final R esult [facility] [address] [place] [address] [phone] * Chlamydia/N. Gonorrhoeae RNA, TMA, Urogenitial (11/17/2024 12:40 PM EDT) CT PCR NOT DETECTED Not Detect. [facility] Comment:A not detected test result does [...] psychologicalconsequences. NG PCR NOT DETECTED Not Detect. [facility] Comment:A not detected test result does [...] PM EDT 11/17/2024 1:05 PM EDT Narrative [facility] - 11/18/2024 6:03 AM EDT Urine us Casie Angulo DO LAB MICROBIOLOGY - GENERAL O RDERABLES Final Result Performing Organization Address City/[facility]/ZIP Co de Phone Number [facility] [address] [place] [address] [phone] * Hepatitis B surface antigen, EIA (11/17/2024 12:40 PM EDT) Pathologist [facility] Hepatitis B Surface Ag Negative Negative [facility] Blood Venous blood specimen / Unknown 11/17/2024 12:40 PM EDT 11/17/2024 1:32 PM EDT Casie Angulo DO LAB BLOOD ORDERABLES Final R esult Performing Organization Address [facility] Co de Phone Number [facility] [address] [place] [address] [phone] * RPR (Monitor) with Reflex to??Titer (11/17/2024 12:40 PM EDT) Pathologist [facility] RPR (Monitor) w/Refl Titer NON-REACTI VE NON-REACT DIANA [facility] Comment:THIS TEST WAS PERFOR MED AT:[employer] [address] [id number] BUSTOS MD Rapid Plasma Reagin Ab Titer TNP [facility] Blood Venous blood specimen / Unknown 11/17/2024 12:40 PM EDT 11/17/2024 1:32 PM EDT us Casie Angulo DO LAB BLOOD ORDERABLES Final R esult Performing Organization Address [facility]/ZIP Co de Phone Number [facility] [address] [place], [place] [phone] * HIV-1/2 Antigen and Antibodies, Fourth Generation, with Reflexes (11/17/2024 12:40 PM EDT) Pathologist [facility] HIV AB/AG Nonreactive Nonreactive [facility] Comment:HIV-1 p24 Ag and/or HIV-1/HIV-2 Ab not detected.A test result that is nonreactive does not exclude thepossibility of exposure to or infection with HIV-1 and/orHIV-2. Nonreactive results in this assay for individualswith prior exposure to HIV-1 and/or HIV-2 may be due toantigen and antibody levels that are below the limit ofdetection of this assay.[employer] HIV Ag/Ab Combo assay result andsupplemental assay results should be interpreted inconjunction with the patient's clinical presentation,history and other laboratory results. If the results areinconsistent with clinical evidence, additional testing issuggested to confirm the result. Blood Venous blood specimen / Unknown 11/17/2024 12:40 PM EDT 11/17/2024 1:32 PM EDT Casie Angulo DO LAB BLOOD ORDERABLES Final R esult Performing Organization Address [facility]/ZIP Co de Phone Number [facility] [address] [place] [phone] * Hepatitis B Surface Antibody, Qualitative (11/17/2024 12:40 PM EDT) Pathologist [facility] ~Hepatitis B Surface Antibody REACTIVE Nonreactive [facility] Comment:REACTIVE: > 11.99 mI U/mL Blood Venous blood specimen / Unknown 11/17/2024 12:40 PM EDT 11/17/2024 1:32 PM EDT Casie Angulo DO LAB BLOOD ORDERABLES Final R esult Performing Organization Address City/[facility]/ZIP Co de Phone Number [facility] [address] [place] [address] [phone] * (ABNORMAL) CBC (11/17/2024 12:40 PM EDT) Pathologist [facility] White Blood Count 12.0(H) 4.8 - 10.8 X10*3/uL [facility] Red Blood Count 4.46 4.20 - 5.50 X10*6/uL [facility] Hemoglobin 13.7 12.0 - 16.0 g/dl [facility] Hematocrit 40.1 37.0 - 47.0 % [facility] Mean Corpuscular Volume 89.9 80.0 - 98.0 fL [facility] Mean Corpuscular Hemoglobin 30.7 27.0 - 33.0 pg [facility] Mean Corpuscular HGB Conc 34.2 31.0 - 35.0 g/dl [facility] Red Cell Distribution Width 13.2 11.0 - 16.0 % [facility] Platelet Count 359 160 - 400 X10*3/uL [facility] Mean Platelet Volume 9.4 9.4 - 12.3 fL [facility] NRBC Pct Auto 0.0 0.0 - 0.2 /100WBC [facility] NRBC Abs Auto 0.000 0.0 - 0.012 X10*3/uL [facility] Blood Venous blood specimen / Unknown 11/17/2024 12:40 PM EDT 11/17/2024 1:32 PM EDT Casie Angulo DO LAB BLOOD ORDERABLES Final R esult [facility] [address] [place] [phone] * TSH (11/17/2024 12:40 PM EDT) Thyroid Stimulating Hormone 1.05 0.32 - 4.0 uIU/mL [facility] Comment:TSH 3rd Generation ( [employer]) Blood Venous blood specimen / Unknown 11/17/2024 12:40 PM EDT 11/17/2024 1:32 PM EDT Casie Angulo DO LAB BLOOD ORDERABLES Final R esult Performing Organization Address City/[facility]/ZIP Co de Phone Number [facility] [address] [place] [phone] * T4, Free (11/17/2024 12:40 PM EDT) Free T4 (Free Thyroxine) 1.05 0.71 - 1.85 ng/dL [facility] Blood Venous blood specimen / Unknown 11/17/2024 12:40 PM EDT 11/17/2024 1:32 PM EDT Casie Douglasnj DO LAB BLOOD ORDERABLES Final R esult Performing Organization Address City/[facility]/ZIP Co de Phone Number [facility] [address] [place] [phone] * (ABNORMAL) Hemoglobin A1c (11/17/2024 12:40 PM EDT) Hemoglobin A1c 6.2(H) <6.0 % [facility] Comment:Hemoglobin A1C Refer ence Range Adults: 4.8 - 6.0 % Non diabetic: < 6.0 % Goal: < 7.0 %Additional Action Suggested: > 8.0 %Note: Hemoglobin A1c results are invalid for patients with abnormal amounts of HbF. Blood transfusions may impact the HbA1c concentration in the patient sample. Estimated Average Glucose 131 mg/dL [facility] Comment:eAG = Estimated ave rage glucose which is %A1C expressed asaverage glucose, using the formula of the Z7R-ZxojmvvRathsux Glucose study (ADAG), Diabetes Care, Vol.31,#8,Mar. 2007 Blood Venous blood specimen / Unknown 11/17/2024 12:40 PM EDT 11/17/2024 1:32 PM EDT Casie Goveahomernj DO LAB BLOOD ORDERABLES Final R esult Performing Organization Address City/[facility] Co de Phone Number [facility] [address] [place] [phone] * (ABNORMAL) Hepatic Function Panel (11/17/2024 12:40 PM EDT) Only the most recent of2 resultswithin the time period is included. Bilirubin, Total 0.5 0.0 - 1.0 mg/dL [facility] Bilirubin, Direct 0.2 0.0 - 0.5 mg/dL [facility] Aspartate Amino Transferase 17 5 - 31 U/L [facility] Alanine Aminotransferase 21 0 - 31 U/L [facility] Total Protein 8.1(H) 6.5 - 8.0 g/dL [facility] Albumin Level 4.5 3.5 - 5.0 g/dL [facility] Alkaline Phosphatase 83 39 - 117 U/L [facility] Blood Venous blood specimen / Unknown 11/17/2024 12:40 PM EDT 11/17/2024 1:32 PM EDT us Casie Angulo DO LAB BLOOD ORDERABLES Final R esult [facility] [address] [place] [phone] * Lipid Panel, Standard (11/17/2024 12:40 PM EDT) Triglycerides 81 <150 mg/dL [facility] Comment:Desirable Triglyceri de: less than 150 mg/dLBorderline High Triglyceride 150-199 mg/dLHigh Triglyceride: 200-499 mg/dLVery High Triglyceride: greater than or equal to 5OO mg/dL Cholesterol 162 <200 mg/dL [facility] Comment:Desirable Cholestero l: less than 200 mg/dLBorderline High Cholesterol: 200-239 mg/dLHigh Cholesterol: greater than 239 mg/dL LDL Cholesterol Calculated 99 <100 mg/dL [facility] Comment:Desirable LDL: less than 100 mg/dLNear Optimal/Above Optimal LDL: 110- 129 mg/dLBorderline High LDL: 130-159 mg/dLHigh LDL: 160-189 mg/dLVery High LDL: greater than or equal to 190 mg/dL HDL Cholesterol 47 >40 mg/dL [facility] Comment:Desirable HDL: great er than 40 mg/dL Note: This HDL assay may give artificially low results in patients with liver disease. Blood Venous blood specimen / Unknown 11/17/2024 12:40 PM EDT 11/17/2024 1:32 PM EDT Casie Kev DO LAB BLOOD ORDERABLES Final R esult Performing Organization Address City/[facility]/ZIP Co de Phone Number [facility] [address] [place] [phone] * (ABNORMAL) Basic Metabolic Panel (11/17/2024 12:40 PM EDT) Only the most recent of2 resultswithin the time period is included. Sodium 139 135 - 145 mmol/L [facility] Potassium 3.9 3.3 - 5.1 mmol/L [facility] Chloride 108 96 - 108 mmol/L [facility] Carbon Dioxide 25 22 - 29 mmol/L [facility] Anion Gap 10(L) 12 - 20 [facility] Urea Nitrogen (BUN) 11 9 - 16 mg/dL [facility] Creatinine, Serum 0.68 0.5 - 1.4 mg/dL [facility] Estimated Glomerular Filt Rate >60 [facility] Comment:Chronic Kidney Disea se: Estimated GFR < 60 mL/min/1.32b4Zytsly Kidney Disease: Estimated GFR < 15 mL/min/1.73m2 Glucose 90 60 - 115 mg/dL [facility] Calcium 9.7 8.4 - 10.2 mg/dL [facility] Blood Venous blood specimen / Unknown 11/17/2024 12:40 PM EDT 11/17/2024 1:32 PM EDT us Casie Angulo DO LAB BLOOD ORDERABLES Final R esult Performing Organization Address City/[facility]/ZIP Co de Phone Number [facility] [address] [place] [phone] * (ABNORMAL) POCT HGB A1C (11/17/2024 12:31 PM EDT) Hemoglobin A1C 6.4(A) 4.0 - 6.0 % QC Media Lot # [id number] Lot# Expiration Date 10,026 Blood 11/17/2024 12:3 1 PM EDT Casie Goveaeliezer DO POINT OF CARE TEST ENTER/ANASTASIYA T ORDERABLES Final Result * POCT Glucose (11/17/2024 12:30 PM EDT) Glucose Blood, POC 103 60 - 200 mg/dL [employer] Lot # [id number] Lot# Expiration Date 8262,025 Blood Capillary blood specimen / Unknown 11/17/2024 12:30 PM EDT Casie Angulo DO POINT OF CARE TEST ENTER/ANASTASIYA T ORDERABLES Final Result * XR KUB and Upright 2 Views (11/04/2024 3:31 AM EDT) Anatomical Region Laterality Modality Radiographic Meliza ging 11/04/2024 3:31 AM EDT Narrative 11/04/2024 3:33 AM EDT ? [employer] ?[address] ?[place] [address] ?XRay Report ? Signed ? Patient: Maki,Casie ?MR#: [id number] ?? 2998 ? : 1985 ?Acct:[id number] ? Age/Sex: 39 / F ?ADM Date: 11/03/24 ? Loc: HO.ED ? Attending Dr: ? Ordering Physician: Melody Nolan ?? Date of Service: 11/04/24 ?? Procedure(s): XR KUB ?? Accession Number(s): [id number] ? cc: Melody Nolan; Casie Angulo DO ? CLINICAL HISTORY: pain ? 1 view abdomen ? Comparison: CT/MO/SR - CT ABDOMEN PELVIS W IV CON [...] ? DD/ 0 ? TD/TT: 11/04/24330 ? Cpo: ? Procedure Note Donharryter, Image - 11/04/[address] [address] XRay Report Signed Patient: Matt Maki#: [id number] : 1985Acct:[id number] Age/Sex: 39 / FADM Date: 11/03/24 Loc: .ED Attending Dr: Ordering Physician: Melody Nolan Date of Service: 11/04/24 Procedure(s): XR KUB Accession Number(s): [id number] cc: Melody Nolan; Casie Angulo DO CLINICAL HISTORY: pain 1 view abdomen Comparison: CT/MO/SR - CT ABDOMEN PELVIS W IV CON [...] in OV> 11/04/24332 DD/ 0 TD/TT: 11/04/24330 Cpo: [facility] External Provider IMG XR PROCEDURES Edited Result - Final * Urinalysis, Complete, with Reflex to Culture (11/03/2024 8:15 PM EDT) Color Urine Yellow [facility] Appearance Urine Cloudy [facility] PH 5.5 5.0 - 9.0 [facility] Glucose Urine UA Negative Negative mg/dL [facility] Urine Blood Negative Negative [facility] Specific [place] - Urine 1.015 1.005 - 1.025 [facility] Urine Protein Negative Neg-Trace mg/dL [facility] Urine Ketones Negative Negative mg/dL [facility] Nitrite Urine Negative Negative [facility] Leukocyte Esterase Urine Negative Negative [facility] RBC Urine 0-2 0 - 2 /HPF [facility] Urine WBC 0-5 0 - 5 /HPF [facility] Urine Squamous Epithelial Cell 3-5 0 - 2 /HPF [facility] Urine Bacteria None Seen None Seen [facility] Hyaline Casts, Urine 0-2 0 - 2 /LPF [facility] 11/03/2024 8:15 PM EDT 11/03/2024 8:23 PM EDT Narrative [facility] - 11/03/2024 8:47 PM EDT Urine, Clean Catch us Generic External Data Provider LAB URINE ORDERAB LES Final Result [facility] [address] [place] [phone] * SARS-CoV-2 RNA, Influenza A/B, and RSV RNA, Ql NAAT (11/03/2024 8:15 PM EDT) Only the most recent of2 resultswithin the time period is included. Influenza A PCR NEGATIVE Negative [facility] Influenza B PCR NEGATIVE Negative [facility] Resp Syncy Virus RNA Qual PCR NEGATIVE Negative [facility] SARS COV2 PCR NEGATIVE Negative [facility] Comment:All test results mus t [...] use by authorized laboratories.Testing performed on the [employer] GeneXpert utilizingreal-time RT-PCR.All SARS CoV2 and positive influenza A/B results arereported to [facility]. 11/03/2024 8:15 PM EDT 11/03/2024 8:23 PM EDT us Generic External Data Provider LAB MICROBIOLOGY - GENERAL ORDERABLES Final Result [facility] [address] [place] [phone] * (ABNORMAL) CBC auto differential (11/03/2024 8:15 PM EDT) Only the most recent of2 resultswithin the time period is included. White Blood Count 9.3 4.8 - 10.8 X10*3/uL [facility] Red Blood Count 3.98(L) 4.20 - 5.50 X10*6/uL [facility] Hemoglobin 12.2 12.0 - 16.0 g/dl [facility] Hematocrit 35.4(L) 37.0 - 47.0 % [facility] Mean Corpuscular Volume 88.9 80.0 - 98.0 fL [facility] Mean Corpuscular Hemoglobin 30.7 27.0 - 33.0 pg [facility] Mean Corpuscular HGB Conc 34.5 31.0 - 35.0 g/dl [facility] Red Cell Distribution Width 13.2 11.0 - 16.0 % [facility] Platelet Count 332 160 - 400 X10*3/uL [facility] Mean Platelet Volume 9.2(L) 9.4 - 12.3 fL [facility] Neutrophils Percent Auto 51.4 45 - 73 % [facility] Imm Gran Pct Auto 0.3 0.0 - 0.4 % [facility] Lymphocytes Percent Auto 40.0 20 - 40 % [facility] Monocytes Percent Auto 6.4 2 - 11 % [facility] Eosinophils Percent Auto 1.5 0 - 4 % [facility] Basophils Percent Auto 0.4 0 - 2 % [facility] NRBC Pct Auto 0.0 0.0 - 0.2 /100WBC [facility] Neutrophils Absolute Auto 4.8 2.0 - 8.3 x10*3/uL [facility] Imm Gran Abs Auto 0.03 0.00 - 0.03 X10*3/uL [facility] Lymphocytes Absolute Auto 3.7 1.2 - 4.9 X10*3/uL [facility] Monocytes Absolute Auto 0.6 0.1 - 1.2 X10*3/uL [facility] Eosinophils Absolute Auto 0.1 0.0 - 0.4 X10*3/uL [facility] Basophils Absolute Auto 0.0 0.0 - 0.2 X10*3/uL [facility] NRBC Abs Auto 0.000 0.0 - 0.012 X10*3/uL [facility] 11/03/2024 8:15 PM EDT 11/03/2024 8:23 PM EDT us Generic External Data Provider LAB BLOOD ORDERAB LES Final Result [facility] [address] [place] [phone] * hCG, Total, Quantitative (11/03/2024 8:15 PM EDT) Only the most recent of2 resultswithin the time period is included. HCG Quantitative <2 mIU/mL [facility] Comment:Weeks post LMP Appro ximate hCG(Last Menstrual Period) Range (mIU/ml)3 - 4 weeks 9 - 1304 - 5 weeks 75 - 2,6005 - 6 weeks 850 - 20,8006 - 7 weeks 4000 - 100,2007 - 12 weeks 11,500 - 289,91188 - 16 weeks 18,300 - 137,03739 - 29 weeks (2nd trimester) 1,400 - 53,34789 - 41 weeks (3rd trimester) 940 - [...] ORDERAB LES Final Result Performing Organization Address [facility]/ZIP Co de Phone Number [facility] [address] [place] [address] [phone] * Lipase (11/03/2024 8:15 PM EDT) Only the most recent of2 resultswithin the time period is included. Lipase 26 8 - 78 U/L [facility] 11/03/2024 8:15 PM EDT 11/03/2024 8:23 PM EDT Generic External Data Provider LAB BLOOD ORDERAB LES Final Result Performing Organization Address [facility]/ZIP Co de Phone Number [facility] [address] [place] [phone] * (ABNORMAL) Comprehensive Metabolic Panel (11/03/2024 8:15 PM EDT) Sodium 138 135 - 145 mmol/L [facility] Potassium 3.7 3.3 - 5.1 mmol/L [facility] Chloride 107 96 - 108 mmol/L [facility] Carbon Dioxide 25 22 - 29 mmol/L [facility] Anion Gap 10(L) 12 - 20 [facility] Urea Nitrogen (BUN) 13 9 - 16 mg/dL [facility] Creatinine, Serum 0.65 0.5 - 1.4 mg/dL [facility] Creatinine Clr Calc Pharmacy 136.6 [facility] Comment:Provided height and weight: 170.18 cm,97.522 kg.eGFR (calculated from the MDRD study equation) and eCrCl(calculated from the Cockcroft-Gault equation) are based ondifferent parameters and may not yield comparable results.If eCrCl result is absurd, please check patient'sheight/weight. Estimated Glomerular Filt Rate >60 [facility] Comment:Chronic Kidney Disea se: Estimated GFR < 60 mL/min/1.18v4Ktchtd Kidney Disease: Estimated GFR < 15 mL/min/1.73m2 Glucose 191(H) 60 - 115 mg/dL [facility] Calcium 8.9 8.4 - 10.2 mg/dL [facility] Bilirubin, Total 0.3 0.0 - 1.0 mg/dL [facility] Aspartate Amino Transferase 23 5 - 31 U/L [facility] Alanine Aminotransferase 27 0 - 31 U/L [facility] Total Protein 7.3 6.5 - 8.0 g/dL [facility] Albumin Level 4.0 3.5 - 5.0 g/dL [facility] Alkaline Phosphatase 71 39 - 117 U/L [facility] 11/03/2024 8:15 PM EDT 11/03/2024 8:23 PM EDT us Generic External Data Provider LAB BLOOD ORDERAB LES Final Result [facility] [address] [place] [phone] * US Abdomen Complete (09/29/2024 6:07 AM EST) Anatomical Region Laterality Modality Abdomen Ultrasound 09/29/2024 6:07 AM EST Narrative 09/29/2024 6:09 AM EST ? [facility] ?[address] ?[place] [address] ? Ultrasound Report ? Signed ? Patient: Maki,Casie ?MR#: [id number] ?? [id number] ? : 1985 ?Acct:[id number] ? Age/Sex: 39 / F ?ADM Date: 09/28/24 ? Loc: HO.US ? Attending Dr: Casie Angulo DO ? Ordering Physician: Casie Angulo DO ?? Date of Service: 09/28/24 ?? Procedure(s): US abdomen complete ?? Accession Number(s): [id number] ? cc: Casie Angulo DO ? CLINICAL [...] MD in OV> ?09/29/24 0608 ? DD/ 6 ? TD/TT: 09/29/24606 ? Cpo: ? Procedure Note Damion Peterson - 09/29/[address] [address] Ultrasound Report Signed Patient: Casie MakiMR#: [id number] : 1985Acct:[id number] Age/Sex: 39 / FADM Date: 09/28/24 Loc: HO.US Attending Dr: Casie Angulo DO Ordering Physician: Casie Angulo DO Date of Service: 09/28/24 Procedure(s): US abdomen complete Accession Number(s): [id number] cc: Casie Angulo Keith CLINICAL HISTORY: intermittent RUQ pain US abdomen [...] Leblanc MD in OV> 09/29/24 0608 DD/ 6 TD/TT: 09/29/24 06 Cpo: us Casie Angulo DO IMG US PROCEDURES Edited Res ult - Final * CT Abdomen Pelvis w/ Contrast (09/25/2024 8:38 AM EST) Anatomical Region Laterality Modality Body, Pelvis, Abdomen Computed T omography 09/25/2024 8:38 AM EST Narrative 09/25/2024 8:39 AM EST ? [facility] ?[address] ?[place] [address] ? CT Scan Report ? Signed ? Patient: Maki,Casie ?MR#: [id number] ?? 2998 ? : 1985 ?Acct:[id number] ? Age/Sex: 39 / F ?ADM Date: 09/25/ ? Loc: HO.ED ? Attending Dr: ? Ordering Physician: Jania Velázquez ?? Date of Service: 09/25/24 ?? Procedure(s): CT abdomen pelvis w IV con ?? Accession Number(s): [id number] ? cc: Casie Angulo DO; Jania Velázquez ? Report Number: ?? [id number]: Total DLP = ??675.00 mGy-cm ? CLINICAL HISTORY: diffuse abd pain, constipation, flank pain ? CT abdomen and pelvis with contrast ? Comparison: CT/MO/SR - CT ABDOMEN PELVIS W IV CON [...] ? DD/ 7 ? TD/TT: 09/25/24837 ? Cpo: ? Procedure Note Nicholas, Image - 09/25/[address] [place] [address] [address] Scan Report Signed Patient: Matt Maki#: [id number] : 1985Acct:[id number] Age/Sex: 39 / FADM Date: 09/25/24 Loc: HO.ED Attending Dr: Ordering Physician: Jania Velázquez Date of Service: 09/25/24 Procedure(s): CT abdomen pelvis w IV con Accession Number(s): [id number] cc: Casie Angulo DO; Jania Velázquez Report Number: [id number]: Total DLP = 675.00 mGy-cm CLINICAL HISTORY: diffuse abd pain, constipation, flank pain CT abdomen and pelvis with contrast Comparison: CT/MO/SR - CT ABDOMEN PELVIS W IV CON [...] in OV> 09/25/2439 DD/ 7 TD/TT: 09/25/24837 Cpo: [facility] External Provider IMG CT PROCEDURES Edited Result - Final * (ABNORMAL) Urinalysis w/reflex microscopic (09/25/2024 8:06 AM EST) Color Urine Yellow [facility] Appearance Urine Cloudy [facility] PH 7.5 5.0 - 9.0 [facility] Glucose Urine UA Negative Negative mg/dL [facility] Urine Blood Negative Negative [facility] Specific [place] - Urine >=1.030(H) 1.005 - 1.025 [facility] Urine Protein Negative Neg-Trace mg/dL [facility] Urine Ketones Negative Negative mg/dL [facility] Nitrite Urine Negative Negative [facility] Leukocyte Esterase Urine Negative Negative [facility] 09/25/2024 8:06 AM EST 09/25/2024 8:09 AM EST Narrative [facility] - 09/25/2024 8:16 AM EST [id number], Clean Catch Generic External Data Provider LAB URINE ORDERAB LES Final Result [facility] [address] [place] [phone] * High Sensitivity Troponin I (09/25/2024 6:53 AM EST) [facility] TROPONIN I HIGH SENSITIVITY <2.7 <3.5 - 17.0 ng/L [facility] Comment:The [place] high sens itivity Troponin-I results should beused in conjunction with other diagnostic information suchas ECG, clinical observations and information, and patientsymptoms to aid in the diagnosis of MT. 09/25/2024 6:53 AM EST 09/25/2024 6:56 AM EST Generic External Data Provider LAB BLOOD ORDERAB LES Final Result Performing Organization Address [facility]/ZIP Co de Phone Number [facility] [address] [place] [phone] * Magnesium (09/25/2024 6:53 AM EST) [facility] Magnesium 2.1 1.6 - 2.6 mg/dL [facility] 09/25/2024 6:53 AM EST 09/25/2024 6:56 AM EST [employer] External Data Provider LAB BLOOD ORDERAB LES Final Result Performing Organization Address [facility]/ZIP Co de Phone Number [facility] [address] [place] [phone] * Hm Pap Smear (04/14/2023) [facility] Pap Negative for intraephithelial lesion or malignancy Negative for intraephithelial lesion or malignancy, Other HPV Not Detected Undetected, Indeterminate, Quantitative, Not Detected us Historical Provider HEALTH MAINTENANCE Final Result * ALBUMIN, RANDOM URINE W/CREATININE (06/28/2022 1:38 PM EDT) [facility] Microalbumin Urine 0.3 See Note: mg/dL CONVERTED [...] Most Recently Relevant to Health Maintenance Insurance [facility] - HSN FULL (MEDICAID) Care Teams Shaper Set Up Operator Relationship Specialty Start Date End Date Casie Angulo DO [address] [place] [address] PCP - General Family Medicine 08/25/18 Antoinette Liu, BriandaD [address] [place] [address] Pharmacist Internal Medicine 05/01/23
--- OUTSIDE RECORDS SUMMARY | 2024-12-23 10:27 | XMS_ITS | Encounter Summary ---
Author Organization [employer] Address [address] [place] [address] 7[address] [place] [address] Care Team Providers Care Scientific Associate Name Role Phone Casie Angulo DO Primary Care Provider [phone] Alvin Caldera PharmD Unavailable Unavail able Antoinette Liu PharmD Unavailable [phone] Reason for Visit * Reason Comments Med Refill Encounter Details Date Type Department Care Team (Late st Contact Info) Description 10/23/2022 Refill [facility] [address] [place] [address] Casie Angulo DO [address] [place] [address] Muscle spasm Social History Tobacco Use Types [...] Description 12/31/2024 10:00 AM EDT Office Visit [facility] [address] [place] [address] Casie Angulo DO [address] [place] [address] documented as of this encounter Visit Diagnoses Diagnosis Muscle spasm Spasm of muscle documented in this encounter Care Teams Scientific Associate Relationship Specialty Start Date End [place] [address] PCP - General Family Medicine 08/25/18 Alvin Caldera, BriandaD [address] [place] [phone] Pharmacist Internal Medicine 12/10/22 04/30/23 Antoinette Liu PharmD [address] [place] [address] Pharmacist Internal Medicine 05/01/23 documented as of this encounter
--- OUTSIDE RECORDS SUMMARY | 2024-12-23 10:27 | XMS_ITS | Encounter Summary ---
Author Organization [employer] Address [address] [place] [address] [address] [place] [address] Care Team Providers Care Plant Specialist Name Role Phone Casie Angulo DO Primary Care Provider Antoinette Liu PharmD Unavailable Reason for Visit * Reason Onset Date Comments Nurse Triage 07/28/2023 Encounter Details Date Type Department Care Team ([facility] st Contact Info) Description 07/28/2023 Telephone [facility] [address] [place], [place] [phone] Casie Angulo DO [address] [place] [address] Nurse Triage Social History Tobacco Use Types [...] Description 12/31/2024 10:00 AM EDT Office Visit [facility] [address] [place] [address] Casie Angulo DO [address] [place] [address] documented as of this encounter Goals Goal [...] documented as of this encounter Care Teams Plant Specialist Relationship Specialty Start Date End Date Casie Angulo DO [address] [place] [address] PCP - General Family Medicine 08/25/18 Antoinette Liu PharmD [address] [place] [address] Pharmacist Internal Medicine 05/01/23 documented as of this encounter
--- OUTSIDE RECORDS SUMMARY | 2024-12-23 10:27 | XMS_ITS | Encounter Summary ---
Author Organization [employer] Address [address] [place] [address] 7t [place] [address] Care Team Providers Care Sludge Control Attendant Name Role Phone Casie Angulo DO Primary Care Provider [phone] Alvin Caldera PharmD Unavailable Unavail able Antoinette Liu PharmD Unavailable Encounter Details Date Type Department Care Team (Late st Contact Info) Description 10/08/2022 Orders Only [facility] [address] [place], [place] [phone] Casie Pinedo LPN Social History Tobacco Use [...] 10:00 AM EDT Office Visit [facility] [address] [place], [place] [phone] Casie Angulo DO [address] [place], [place] [phone] documented as of this encounter Visit Diagnoses Not on filedocumented in this encounter Care Teams Sludge Control Attendant Relationship Specialty Start Date End Date Casie Angulo DO [address] [place], [place] [phone] PCP - General Family Medicine 08/25/18 Alvin Caldera, PharmD [address] [place] [address] Pharmacist Internal Medicine 12/10/22 04/30/23 Antoinette Liu, BriandaD [address] [place] [address] Pharmacist Internal Medicine 05/01/23 documented as of this encounter
--- OUTSIDE RECORDS SUMMARY | 2024-12-23 10:27 | XMS_ITS | Encounter Summary ---
Author Organization [employer] Address [address] [place] [address] [address] [place] [address] Care Team Providers Care Chief Electrician Name Role Phone Casie Angulo DO Primary Care Provider [phone] Alvin Caldera PharmD Unavailable Unavail able Antoinette Liu PharmD Unavailable Encounter Details Date Type Department Care Team (Late st Contact Info) Description 09/19/2022 Orders Only [facility] [address] [place] [phone] Whitney James LPN Social History Tobacco Use [...] 10:00 AM EDT Office Visit [facility] [address] [place] [phone] Casie Angulo DO [address] [place] [address] documented as of this encounter Visit Diagnoses Not on filedocumented in this encounter Care Teams Chief Electrician Relationship Specialty Start Date End Date Casie Angulo DO [address] [place] [address] PCP - General Family Medicine 08/25/18 Alvin Caldera, PharmD [address] [place] [address] Pharmacist Internal Medicine 12/10/22 04/30/23 Antoinette Liu, BriandaD [address] [place] [address] Pharmacist Internal Medicine 05/01/23 documented as of this encounter
--- OUTSIDE RECORDS SUMMARY | 2024-12-23 10:27 | XMS_ITS | Encounter Summary ---
Author Organization [employer] Address [address] [place] [address] 7t [place] [address] Care Team Providers Care Die Maker Stamping Name Role Phone Casie Angulo DO Primary Care Provider [phone] Alvin Caldera PharmD Unavailable Unavail able Antoinette Liu PharmD Unavailable Reason for Visit * Reason Comments Med Refill Encounter Details Date Type Department Care Team (Late st Contact Info) Description 02/06/2023 Refill [facility] [address] [place] [address] Casie Angulo DO [address] [place] [address] Social History Tobacco Use Types Packs/Day Years [...] Description 12/31/2024 10:00 AM EDT Office Visit [facility] [address] [place] [address] Casie Angulo DO [address] [place] [address] documented as of this encounter Goals Goal [...] documented as of this encounter Care Teams Die Maker Stamping Relationship Specialty Start Date End Date Casie Angulo DO [address] [place] [address] PCP - General Family Medicine 08/25/18 Alvin Caldera, PharmD [address] [place] [address] Pharmacist Internal Medicine 12/10/22 04/30/23 Antoinette Liu, BriandaD [address] [place] [address] Pharmacist Internal Medicine 05/01/23 documented as of this encounter
--- OUTSIDE RECORDS SUMMARY | 2024-12-23 10:27 | XMS_ITS | Encounter Summary ---
Author Organization [employer] Address [address] [place] [address] 7[address] [place] [address] Care Team Providers Care Rodent Exterminator Name Role Phone Casie Angulo Primary Care Provider [phone] Antoinette Liu PharmD Unavailable Reason for Visit * Reason Onset Date Comments unable to post insurance 11/03/2024 Encounter Details Date Type Department Care Team ([facility] st Contact Info) Description 11/03/2024 Telephone [facility] [address] [place] [address] Nicole Lozano DDS [address] [place] [address] unable to post insurance Social History Tobacco [...] for 1pm emergency appt. Unable to post [facility] insurance portal not running on [employer] * Telephone Encounter - Nancie Mccann - [...] 10:00 AM EDT Office Visit [facility] [address] [place] [address] Casie Angulo DO [address] [place] [address] documented as of this encounter Goals Goal [...] documented as of this encounter Care Teams Rodent Exterminator Relationship Specialty Start Date End Date Casie Angulo DO [address] [place] [address] PCP - General Family Medicine 08/25/18 Antoinette Liu PharmD [address] [place] [address] Pharmacist Internal Medicine 05/01/23 documented as of this encounter
[2024-12-23 11:28] LABS: MANUAL DIFF FLAG NO
[2024-12-23 11:33] LABS: Basophils Percent Auto 0.4 % (0-2); Eosinophils Absolute Auto 0.1 X10*3/uL (0.0-0.4); Eosinophils Percent Auto 1.5 % (0-4); Hematocrit 37.1 % (37.0-47.0); Hemoglobin 12.3 g/dl (12.0-16.0); Imm Gran Abs Auto 0.05 X10*3/uL (0.00-0.03); Imm Gran Pct Auto 0.5 % (0.0-0.4); Lymphocytes Absolute Auto 2.7 X10*3/uL (1.2-4.9); Lymphocytes Percent Auto 27.6 % (20-40); Mean Corpuscular HGB Conc 33.2 g/dl (31.0-35.0); Mean Corpuscular Hemoglobin 30.4 pg (27.0-33.0); Mean Corpuscular Volume 91.8 fL (80.0-98.0); Mean Platelet Volume 9.5 fL (9.4-12.3); Monocytes Absolute Auto 0.4 X10*3/uL (0.1-1.2); Monocytes Percent Auto 4.4 % (2-11); Neutrophils Absolute Auto 6.3 x10*3/uL (2.0-8.3); Neutrophils Percent Auto 65.6 % (45-73); Platelet Count 347 X10*3/uL (160-400); Red Blood Count 4.04 X10*6/uL (4.20-5.50); Red Cell Distribution Width 13.2 % (11.0-16.0); White Blood Count 9.6 X10*3/uL (4.8-10.8)
== END 2024-12-23 09:34 | disposition home or self-care (01) ==
LOC: HO.HHCL 09:33
PROVIDERS: Visit Provider Family Medicine
DX: M79.18 Myalgia, other site (principal)
CPT/HCPCS: 36415; 82550; 85025

== ENCOUNTER 2024-12-24 09:04 | Outpatient (AMB) | payer OTHER, SELFPAY ==
[2024-12-24 09:14] VITALS: BP 118/76; PULSE 72; O2SAT 96; BMI 33.7
--- NOTE | 2024-12-24 09:14 | MHC.OFFVIS ---
Vital Signs 12/24/24 09:14 Height 5 ft 7 in Weight 215 lb BMI 33.7 BP 118/76 Blood Pressure Location Rt brachial Position Sitting Pulse 72 Pulse Source Pulse Oximeter Pulse Oximetry (%) 96 Oxygen Delivery Method Room Air Intake Visit Reasons: 4 mo f/u Hemorrhoids with complication Intake Note: ESTABLISHED PATIENT for mgmt of CIC + IBS mgmt. CC; C/O IBS sx persistence despite treatment. Pt still reporting constipation and diarrhea intermittently, denies any bleeding but does feel rectal pain intermittently. No additional sx or concerns at this time. Necktie Operator Pockets And Pieces Required: No Accompanied by: Self / Same As Patient Allergies No Known Allergies Allergy (Mild, Verified 12/24/24 09:21) NOT APPLICABLE Medication List - Last Reconciled 12/24/24 by JACQUES lFeming-RAHEL alum-mag hydroxide-simeth 400-400-40 mg/5 mL (Maalox Maximum Strength) 5 mL PO QID PRN cholecalciferol (vitamin D3) 50 mcg PO DAILY docusate sodium 200 mg (2 x 100 mg) PO BEDTIME fluticasone propionate 50 mcg/actuation 2 sprays intranasal DAILY hydrocortisone 2.5% (Proctosol HC) 1 appl VA BID-QID PRN lidocaine 5% 1 patch topical DAILY linaclotide (Linzess) 290 mcg PO QAM loratadine 10 mg PO QAM magnesium citrate (Citrate of Magnesia oral) 150 mL PO DAILY PRN metoclopramide HCl 10 mg PO Q6H PRN norethindrone-e.estradiol-iron 1.5 mg-30 mcg (21)/75 mg (7) (Junel FE 1.5/30 (28)) 1 tab PO DAILY omeprazole 20 mg PO DAILY 4 weeks polyethylene glycol 3350 (Miralax) 17 grams PO DAILY HPI HPI 4 mo f/u Hemorrhoids with complication: Details: LAST VISIT: Constipation Hemorrhoids with complication Rectal bleed Plan Patient was encouraged to increase fluid intake and activity to promote better bowel motility. Patient can take Dulcolax before dinner and see if she will have a bowel movement at night time. Continue Linzess in the morning. Patient can try to take MiraLax in the morning or mid day to see if it will help. Patient reports that she did with with MiraLax prep before colonoscopy tolerated well without having any abdominal cramps. Follow-up in 4 months, sooner on as needed basis. She is agreeable to current plan of care and verbalizes understanding of instructions. She was given the opportunity to ask questions and all questions answered. ? Thank you for allowing me to participate in her care Medications New polyethylene glycol 3350 (Miralax) 17 grams PO DAILY 510 grams 2RF TODAY'S VISIT Patient is here today for follow-up. Patient reports that she is feeling significantly better, however she continues to have abdominal bloating occasionally. 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 Patient is taking the medication in the afternoon. Patient still reports occasional abdominal bloating, denies melena, hematochezia. Although occasionally patient will have blood with wiping after having a bowel movement and being constipated for a couple days. Patient reports that she also is eating better and denies eating late at night. Patient reports that she recently was on a cruise with her family and had no GI concerning symptoms. Patient reports that she was able to eat and had not suffered from abdominal pain, bloating, constipation or diarrhea [facility] Medical History Diabetes Anal pain Constipation Hemorrhoids with complication Pelvic varices Surgical History History of hemorrhoidectomy Family History Maternal Aunt Breast cancer in female Mother HTN (hypertension) Social History Alcohol intake: former Patient Tobacco Use Status: Current everyday Tobacco user Tobacco use type: Cigarette Cigarette Packs Per Day: 0.5 Cigarettes Per Day: 10.0 Years Smoked: 14 Female Reproductive History Menstrual Age of Menarche: 10 Review of Systems Const Denies weight gain and Denies weight loss ENT Reports no additional complaints, Denies dysphagia and Denies odynophagia Card Reports no additional complaints Resp Reports no additional complaints GI Reports abdominal pain, Denies belching, Denies melena, Reports bloating, Denies change in bowel habits, Reports constipation, Denies dysphagia, Denies excessive flatus, Denies dyspepsia, Denies heartburn, Denies diarrhea, Denies loose stools, Denies nausea, Denies odynophagia and Denies vomiting Reports no additional complaints Musc Reports no additional complaints Neuro Reports no additional complaints Psych Reports no additional complaints Endo Reports no additional complaints Physical Exam Vital Signs: Last Vital Signs Pulse 72 12/24/24 09:14 BP 118/76 12/24/24 09:14 Pulse Ox 96 12/24/24 09:14 Oxygen Delivery Method Room Air 12/24/24 09:14 BMI result Body Mass Index 33.7 Const General: healthy appearing and no acute distress Nutritional Appearance: obese Orientation/consciousness: patient oriented x3 Resp Effort & Inspection: normal respiratory effort, able to speak in complete sentences, no tracheal deviation and symmetric chest movement Auscultation: clear to auscultation bilaterally Cardio Rate: regular rate GI Inspection: Yes normal to inspection, No distended and Yes obesity Palpation (GI): Soft to palpation, not firm, nontender and No hepatosplenomegaly present Auscultation: normal bowel sounds General: Yes no CVA tenderness Back/Spine/Pelvis Back: no CVA tenderness Skin General skin exam: elasticity normal, turgor normal and dry skin Neuro General: patient oriented x3 Psych Appearance: grossly normal Mental Status: mental status grossly normal Assessment & Plan Assessment & Plan (1) Constipation: Code(s): K59.00 - Constipation, unspecified Category: Medical Qualifiers: Constipation type: chronic idiopathic constipation Qualified Code(s): K59.04 - Chronic idiopathic constipation (2) Hemorrhoids with complication: Code(s): K64.8 - Other hemorrhoids Category: Medical (3) Rectal bleed: Code(s): K62.5 - Hemorrhage of anus and rectum Plan Patient will continue Linzess. Increase fluid intake and activity to promote better bowel tele. Increase fiber intake. Patient will continue avoiding dietary triggers and late effects. Staying upright for min to 3 hours after meals discussed with patient. Discussed with patient the importance of following a low FODMAP diet. Patient will follow-up in 6 months, sooner on as needed basis. She is agreeable to this plan and verbalizes understanding of instructions. She was given the opportunity to ask questions and all questions answered. Thank you for allowing me to participate in her care Coding Level of Care Code Est Pt Level 3 (10888) Diagnoses Chronic idiopathic constipation K59.04 Constipation type: chronic idiopathic constipation Hemorrhoids with complication K64.8 Rectal bleed K62.5 Time Spent (min) 25 Comment 15 minutes spent with patient and additional 10 minutes spent reviewing her records
--- OUTSIDE RECORDS SUMMARY | 2024-12-24 09:34 | XMS_ITS | Encounter Summary ---
Author Organization [employer] Address [address] [place] [address] 7 [place] [address] Care Team Providers Care Strainer Tender Name Role Phone Casie Angulo DO Primary Care Provider [phone] Antoinette Liu PharmD Unavailable [phone] Reason for Referral * Consultation (Urgent) - Authorized Specialty Diagnoses / Procedures Referred By Blanco t Referred To Contact Neurology Diagnoses Paresthesia of left arm and leg Casie Angulo DO [address] [place] [address] Phone: tel: fax: [address] Phone: tel: fax: Referral ID Status Reason Start Date Expiration Date Visits Requested Visits Authorized [id number] Authorized Specialty Services Required 12/23/2024 12/23/2025 1 1 Encounter Details Date Type Department Care Team (Late st Contact Info) Description 12/23/2024 Orders Only [facility] [address] [place] [address] Casie Angulo DO [address], [place] [phone] Paresthesia of left arm and leg (Primary Dx); Type 2 diabetes mellitus without complication, without long-term current use of insulin ([facility]) Social History Tobacco Use Types Packs/Day Years [...] AM EDT documented as of this encounter Progress Notes * Casie Angulo DO - 12/23/2024 4:43 PM EDT Referral to neurology ordered. documented in this encounter Plan of Treatment Upcoming Encounters Date Type Department Care Team (Late st Contact Info) Description 12/31/2024 10:00 AM EDT Office Visit [facility] [address] [place] [address] Casie Angulo DO [address] [place] [address] Scheduled Referrals Name Type Priority Associated Diagnoses Orde r Schedule Referral to Neurology Outpatient Referral Urgent Paresthesia of left arm and leg Expected: 12/23/2024 (Approximate), Expires: 12/23/2025 documented as of this encounter Goals Goal Patient Goal Type Associated Problems Recent Progress Patient-Stated? Author Hemoglobin A1c < 7 Result Component 6.2( 12:40 PM EDT) No Alvin Caldera PharmD Record your blood sugar as directed Result Component No Antoinette Liu PharmD Note: Encouraged patient to increase frequency of SMBG monitoring to guide tx modification. documented as of this encounter Visit Diagnoses Diagnosis Paresthesia of left arm and leg- Primary Type 2 diabetes mellitus without complication, without long-term current use of insulin ([facility]) documented in this encounter Additional Health Concerns Assessment Noted Time PHQ-9 Depression Total Score: 5 11/18/19 25 1:07 PM EDT documented as of this encounter Care Teams Strainer Tender Relationship Specialty Start Date End Date Casie Angulo DO [address] [place] [id number] PCP - General Family Medicine 08/25/18 Antoinette Liu PharmD [address] [place] [phone] Pharmacist Internal Medicine 05/01/23 documented as of this encounter
--- OUTSIDE RECORDS SUMMARY | 2024-12-24 09:35 | XMS_ITS | Encounter Summary ---
Author Organization [employer] Address [address] [place] [address] [address] [place] [address] Care Team Providers Care Global Marketing Operations Manager Name Role Phone Casie Angulo Primary Care Provider [phone] Antoinette Liu PharmD Unavailable Reason for Visit * Reason Onset Date Comments unable to post insurance 11/03/2024 Encounter Details Date Type Department Care Team ([facility] st Contact Info) Description 11/03/2024 Telephone [facility] [address] [place] [address] Nicole Lozano DDS [address] [place] [address] unable to post insurance Social History Tobacco [...] for 1pm emergency appt. Unable to post [facility] insurance portal not running on [employer] * Telephone Encounter - Nancie Mccann - [...] Description 12/31/2024 10:00 AM EDT Office Visit [facility] [address] [place] [address] Casie Angulo DO [address] [place] [address] documented as of this encounter Goals Goal [...] documented as of this encounter Care Teams Global Marketing Operations Manager Relationship Specialty Start Date End Date Casie Angulo DO [address] [place] [address] PCP - General Family Medicine 08/25/18 Antoinette Liu PharmD [address] [place] [address] Pharmacist Internal Medicine 05/01/23 documented as of this encounter
--- OUTSIDE RECORDS SUMMARY | 2024-12-24 09:35 | XMS_ITS | Encounter Summary ---
Author Organization [employer] Address [address] [place] [address] [address] [place] [address] Care Team Providers Care Plate Setter Name Role Phone Casie Angulo DO Primary Care Provider [phone] Alvin Caldera PharmD Unavailable Unavail able Antoinette Liu PharmD Unavailable [phone] Reason for Visit * Reason Comments Med Refill Encounter Details Date Type Department Care Team (Late st Contact Info) Description 02/06/2023 Refill [facility] [address] [place] [address] Casie Angulo DO [address] [place] [address] Social History Tobacco Use Types Packs/Day Years [...] Description 12/31/2024 10:00 AM EDT Office Visit [facility] [address] [place] [address] Casie Angulo DO [address] [place] [address] documented as of this encounter Goals Goal [...] documented as of this encounter Care Teams Plate Setter Relationship Specialty Start Date End Date Casie Angulo DO [address] [place] [address] PCP - General Family Medicine 08/25/18 Alvin Caldera, PharmD [address] [place] [address] Pharmacist Internal Medicine 12/10/22 04/30/23 Antoinette Liu, BriandaD [address] [place] [address] Pharmacist Internal Medicine 05/01/23 documented as of this encounter
--- OUTSIDE RECORDS SUMMARY | 2024-12-24 09:35 | XMS_ITS | Encounter Summary ---
Author Organization [employer] Address [address] [place] [address] [address] [place] [address] Care Team Providers Care Wedger Machine Name Role Phone Casie Angulo DO Primary Care Provider Alvin Caldera PharmD Unavailable Unavail able Antoinette Liu PharmD Unavailable [phone] Encounter Details Date Type Department Care Team (Late st Contact Info) Description 09/19/[address] [facility] [address] [place] [address] Whitney James LPN Social History Tobacco Use [...] Description 12/31/2024 10:00 AM EDT Office Visit [facility] [address] [place] [address] Casie Angulo DO [address] [place] [address] documented as of this encounter Visit Diagnoses Not on filedocumented in this encounter Care Teams Wedger Machine Relationship Specialty Start Date End Date Casie Angulo DO [address] [place] [address] PCP - General Family Medicine 08/25/18 Alvin Caldera, PharmD [address] [place] [address] Pharmacist Internal Medicine 12/10/22 04/30/23 Antoinette Liu, BriandaD [address] [place] [address] Pharmacist Internal Medicine 05/01/23 documented as of this encounter
--- OUTSIDE RECORDS SUMMARY | 2024-12-24 09:35 | XMS_ITS | Clinical Summary ---
Author Organization [facility] Address [address] [place] [address] [address] [place] [address] Care Team Providers Care Technician Chemical Cleaning Name Role Phone Casie Angulo Primary Care Provider Antoinette Liu PharmD Unavailable [phone] Allergies No known active allergies Medications [...] complication, without long-term current use of insulin ([facility]) 1 each by Other route 2 times daily. USE TWICE DAILY 100 each 4 Active glucose blood (FREESTYLE LITE) test stripIndication s:Type 2 diabetes mellitus without complication, without long-term current use of insulin ([facility]) USE TO TEST TWICE A DAY 100 strip 4 Active UltiCare Alcohol Swabs 70 % padsIndications :Type 2 diabetes mellitus without complication, without long-term current use of insulin ([facility]) USE 1 SWAB TOPICALLY 2 TIMES EVERY [...] 1 tablet by mouth Once per day. Active baclofen (Lioresal) 10 MG tablet Take 1 tablet (10 mg) by mouth if needed in the morning, at noon, and at bedtime for muscle spasms. 60 tablet 1 5 11/18/19 Active Diclofenac Sodium 1 % gel Apply 2 g topically if needed in the morning, at noon, in the evening, and at bedtime (pain). 150 g 3 Active gabapentin (Neurontin) 100 MG capsule Take 1 capsule (100 mg) by mouth 3 times daily. 90 capsule 3 5 11/25/19 Active Semaglutide,0.2 5 or 0.5MG/DOS, (Ozempic, 0.25 or 0.5 MG/DOSE,) 2 MG/3ML solution pen-injectorInd ications:Type 2 diabetes mellitus without complication, without long-term current use of insulin ([facility]) Inject 0.25 mg under the skin 1 (one) time per week. 3 mL 3 Active Active Problems Problem Noted Date Diagnosed Date [...] pt to come get examined today at [facility] Will repeat labs due to Hx of leukocytosis and r/o UA Recommended to hold Metformin x 2 days and see if Sx improved Unclear if related to pelvic congestion syndrome Recommend to be seen in the [facility] due to nasal congestion and other Sx, may needs to be tested for viral diseases, ei. covid and flu Acute frontal sinusitis 06/03/2023 02/0 02/2024 Low-lying placenta 11/27/2022 AMA (advanced maternal age) multigravida 35+ 11/27/2022 Depression 10/16/2022 12/18/2022 Smoker 10/16/2022 11/27/2022 Body aches 07/29/2018 11/27/2022 Alopecia 07/25/2015 12/18/2022 Chronic migraine 07/25/2015 10/01/2023 Encounters Date Type Department Care Team Description 12/23/2024 Orders Only [facility] [address] [place] [phone] Casie Angulo DO Paresthesia of left arm and leg (Primary Dx); Type 2 diabetes mellitus without complication, without long-term current use of insulin ([facility]) 12/06/[address] [address] Casie Angulo DO Results 11/24/2024 11:30 AM EDT Office Visit [address] [address] Casie Angulo DO Paresthesia of left arm and leg (Primary Dx) 11/24/2024 Travel 11/20/2024 10:20 AM EDT Office Visit [facility] [address] [place] [phone] Tarun La MD Myalgia, multiple sites (Primary Dx) 11/17/2024 11:15 AM EDT Office Visit [address] [address] Casie Angulo DO Chronic abdominal pain (Primary Dx); Chronic constipation; Mid back pain on right side; Pelvic congestion syndrome; Type 2 diabetes mellitus with other specified complication, unspecified whether salvage determiner insulin use ([facility]) 11/17/2024 Travel 11/05/2024 11:30 AM EDT Office Visit [facility] [address] [place] [address] Norma Abarca 11/03/2024 Orders Only GENERIC EXTERNAL DATA DEPARTMENT Provider, Generic External Data 11/03/2024 Telephone [facility] [address] [place] [address] Nicole Lozano DDS unable to post insurance 10/25/2024 11:30 AM EST Office Visit [facility] [address] [place] [address] Norma Abarca 10/25/[address] [address] Casie Angulo DO Appointment Request 10/25/2024 Travel 10/01/2024 11:45 AM EST Office Visit [address] [address] Casie Angulo DO 10/01/2024 Travel 09/27/[address] [address] Maddie Crenshaw, DEEPAK Appt R/S from Last 3 Months Immunizations Name Administration [...] Description 12/31/2024 10:00 AM EDT Office Visit [facility] [address] [place] [address] Casie Angulo DO [address] [place] [address] Health Maintenance Due Date Last [...] 10/25/2024, 04/07/2024 Depression Screening 11/17/2025 11/17/2024, 11/18/19 25 Lipid Panel 11/17/2025 11/17/2024, 08/26, 06/03/2023, Additional history exists SDOH Screening 11/17/2025 11/17/2024 Tobacco Screening 11/24/2025 11/24/2024 Eye Exam 02/15/2026 02/16/2024, 01/24, 02/16/2024, Additional history exists Pap Smear 04/14/2026 04/14/2023, 040 11/2021, 01/04/2019 Dental X-Ray: Full Mouth 04/08/2027 04/07/2024, 02/22 Cervical Cancer Screening 04/14/2028 HPV/Cotest 04/14/2028 04/14/2023, 0 11/2021, 01/04/2019 DTaP/Tdap/Td Vaccines (4 - Td [...] Procedure Name Priority Date/Time Associated Diagnosis Comments CREATINE KINASE, TOTAL Routine 12/23/2024 9:35 AM EDT Myalgia, multiple sites CBC WITH AUTO DIFFERENTIAL Routine 12/23/2024 9:35 AM EDT Myalgia, multiple sites MR BRAIN WO CONTRAST Routine 12/01/2024 7:06 [...] complication, without long-term current use of insulin ([facility]) Other hyperlipidemia Chronic constipation Chronic allergic rhinitis RUQ pain Healthcare maintenance POCT GLYCATED HEMOGLOBIN, TOTAL Routine 11/17/2024 12:31 PM EDT Type 2 diabetes mellitus with other specified complication, unspecified whether mcc insulin use ([facility]) POCT GLUCOSE Routine 11/17/2024 12:30 PM EDT Type 2 diabetes mellitus with other specified complication, unspecified whether salvage determiner insulin use ([facility]) CASE PRESENTATION, DETAILED AND EXTENSIVE TREATMENT PLANNING [...] 09/29/2024 6 :07 AM EST RUQ pain PROPHYLAXIS - ADULT Routine 04/07/2024 1 0:00 [...] Recently Relevant to Health Maintenance Results * (ABNORMAL) CBC auto differential (12/23/2024 9:35 AM EDT) Only the most recent of2 resultswithin the time period is included. White Blood Count 9.6 4.8 - 10.8 X10*3/uL [facility] Red Blood Count 4.04(L) 4.20 - 5.50 X10*6/uL [facility] Hemoglobin 12.3 12.0 - 16.0 g/dl [facility] Hematocrit 37.1 37.0 - 47.0 % [facility] Mean Corpuscular Volume 91.8 80.0 - 98.0 fL [facility] Mean Corpuscular Hemoglobin 30.4 27.0 - 33.0 pg [facility] Mean Corpuscular HGB Conc 33.2 31.0 - 35.0 g/dl [facility] Red Cell Distribution Width 13.2 11.0 - 16.0 % [facility] Platelet Count 347 160 - 400 X10*3/uL [facility] Mean Platelet Volume 9.5 9.4 - 12.3 fL [facility] Neutrophils Percent Auto 65.6 45 - 73 % [facility] Imm Gran Pct Auto 0.5(H) 0.0 - 0.4 % [facility] Lymphocytes Percent Auto 27.6 20 - 40 % [facility] Monocytes Percent Auto 4.4 2 - 11 % [facility] Eosinophils Percent Auto 1.5 0 - 4 % [facility] Basophils Percent Auto 0.4 0 - 2 % [facility] NRBC Pct Auto 0.0 0.0 - 0.2 /100WBC [facility] Neutrophils Absolute Auto 6.3 2.0 - 8.3 x10*3/uL [facility] Imm Gran Abs Auto 0.05(H) 0.00 - 0.03 X10*3/uL [facility] Lymphocytes Absolute Auto 2.7 1.2 - 4.9 X10*3/uL [facility] Monocytes Absolute Auto 0.4 0.1 - 1.2 X10*3/uL [facility] Eosinophils Absolute Auto 0.1 0.0 - 0.4 X10*3/uL [facility] Basophils Absolute Auto 0.0 0.0 - 0.2 X10*3/uL [facility] NRBC Abs Auto 0.000 0.0 - 0.012 X10*3/uL [facility] Blood Venous blood specimen / Unknown 12/23/2024 9:35 AM EDT 12/23/2024 11:23 AM EDT us Tarun La MD LAB BLOOD ORDERABLES Final Resul t [facility] [address] [place] [address] [phone] * Creatine Kinase, Total (12/23/2024 9:35 AM EDT) Creatine Kinase Total 135 26 - 140 U/L [facility] Blood Venous blood specimen / Unknown 12/23/2024 9:35 AM EDT 12/23/2024 11:23 AM EDT us Tarun La MD LAB BLOOD ORDERABLES Final Resul t [facility] [address] [facility] [place] [address] [phone] * MR Brain w/o Contrast (12/01/2024 7:06 PM EDT) Anatomical Region Laterality Modality Brain Magnetic Resonan ce 12/01/2024 7:06 PM EDT Narrative 12/02/2024 7:12 AM EDT ? [facility] ?[address] ?[place] [address] ? Magnetic Resonance Report ? Signed ? Patient: Maki,Casie ?MR#: [id number] ?? 2998 ? : 1985 ?Acct:[id number] ? Age/Sex: 39 / F ?ADM Date: 12/01/24 ? Loc: HO.MRI ? Attending Dr: Casie Angulo DO ? Ordering Physician: Casie Angulo DO ?? Date of Service: 12/01/24 ?? Procedure(s): MR head/brain wo con ?? Accession Number(s): [id number] ? cc: Casie Angulo DO ? EXAMINATION: [...] be excluded. ? Electronically signed by: ??Issac Wilson MD ??12/02/2024 07:09 AM ?? EDT RP ? Dictated By: ?Issac Mancini MD ? Signed By: ?<Electronically signed by Issac Sy MD in OV> ? 12/02/24 0709 ? DD/ 1906 ? TD/TT: 12/01/24 1920 ? Package Worker: ? Procedure Note Nicholas, Image - 12/02/2024 [place] [address] Magnetic Resonance Report Signed Patient: Casie MakiMR#: [id number] 2998 : 1985Acct:[id number] Age/Sex: 39 / FADM Date: 12/01/24 Loc: HO.MRI Attending Dr: Casie Angulo DO Ordering Physician: Casie Angulo DO Date of Service: 12/01/24 Procedure(s): MR head/brain wo con Accession Number(s): [id number] cc: Casie Angulo DO EXAMINATION: MR BRAIN [...] Issac Sy MDin OV> 12/02/24 0709 DD/ 05 TD/TT: 12/01/241919 Package Worker: Casie Angulo DO IMG MRI PROCEDURES Final Res ult * Vitamin D, 25-Hydroxy, Total, Immunoassay (11/17/2024 12:40 PM EDT) Pathologist [facility] Vitamin D 25-OH Total 30.7 >30 ng/mL [facility] Comment: Health Based Reference Values*< 20 ??ng/mL ??[id number] ng/mL ??Insufficient> 30 ??ng/mL ??Sufficient*Melissa MCCORMICK. N [...] 11/17/2024 1:32 PM EDT us Casie Angulo LAB BLOOD ORDERABLES Final R esult Performing Organization Address City/[facility]/ZIP Co de Phone Number [facility] [address] [place] [address] [phone] * Hepatitis C Antibody with Reflex to HCV, RNA, Quantitative, Real-Time PCR (11/17/2024 12:40 PM EDT) Hepatitis C Antibody Nonreactive Nonreactive [facility] Comment:Antibodies to HCV no t detected; does not exclude early acuteHCV infection. Blood Venous blood specimen / Unknown 11/17/2024 12:40 PM EDT 11/17/2024 1:32 PM EDT [facility] BLOOD ORDERABLES Final R esult Performing Organization Address [facility] Co de Phone Number [facility] [address] [place] [phone] * Chlamydia/N. Gonorrhoeae RNA, TMA, Urogenitial (11/17/2024 12:40 PM EDT) [facility] CT PCR NOT DETECTED Not Detect. [facility] Comment:A not detected test result does [...] psychologicalconsequences. NG PCR NOT DETECTED Not Detect. [facility] Comment:A not detected test result does [...] PM EDT 11/17/2024 1:05 PM EDT Narrative [facility] - 11/18/2024 6:03 AM EDT Urine Casie Angulo DO LAB MICROBIOLOGY - GENERAL O RDERABLES Final Result Performing Organization Address [facility]/ZIP Co de Phone Number [facility] [address] [place] [phone] * Hepatitis B surface antigen, EIA (11/17/2024 12:40 PM EDT) Pathologist [facility] Hepatitis B Surface Ag Negative Negative [facility] Blood Venous blood specimen / Unknown 11/17/2024 12:40 PM EDT 11/17/2024 1:32 PM EDT Casie Angulo DO LAB BLOOD ORDERABLES Final R esult Performing Organization Address [facility] Co de Phone Number [facility] [address] [place] [phone] * RPR (Monitor) with Reflex to??Titer (11/17/2024 12:40 PM EDT) RPR (Monitor) w/Refl Titer NON-REACTI VE NON-REACT DIANA [facility] Comment:THIS TEST WAS PERFOR MED AT:[employer] [place] [phone] BUSTOS MD Rapid Plasma Reagin Ab Titer TNP [facility] Blood Venous blood specimen / Unknown 11/17/2024 12:40 PM EDT 11/17/2024 1:32 PM EDT us Casie Stellarody MUSA LAB BLOOD ORDERABLES Final R esult Performing Organization Address City/[facility]/ZIP Co de Phone Number [facility] [address] [place] [phone] [phone] * HIV-1/2 Antigen and Antibodies, Fourth Generation, with Reflexes (11/17/2024 12:40 PM EDT) [facility] HIV AB/AG Nonreactive Nonreactive [facility] Comment:HIV-1 p24 Ag and/or HIV-1/HIV-2 Ab not detected.A test result that is nonreactive does not exclude thepossibility of exposure to or infection with HIV-1 and/orHIV-2. Nonreactive results in this assay for individualswith prior exposure to HIV-1 and/or HIV-2 may be due toantigen and antibody levels that are below the limit ofdetection of this assay.The [employer] HIV Ag/Ab Combo assay result andsupplemental assay results should be interpreted inconjunction with the patient's clinical presentation,history and other laboratory results. If the results areinconsistent with clinical evidence, additional testing issuggested to confirm the result. Blood Venous blood specimen / Unknown 11/17/2024 12:40 PM EDT 11/17/2024 1:32 PM EDT us Casie Kev DO LAB BLOOD ORDERABLES Final R esult Performing Organization Address City/[facility]/ZIP Co de Phone Number [facility] [address] [place] [address] [phone] * Hepatitis B Surface Antibody, Qualitative (11/17/2024 12:40 PM EDT) Pathologist [facility] ~Hepatitis B Surface Antibody REACTIVE Nonreactive [facility] Comment:REACTIVE: > 11.99 mI U/mL Blood Venous blood specimen / Unknown 11/17/2024 12:40 PM EDT 11/17/2024 1:32 PM EDT Casie Angulo DO LAB BLOOD ORDERABLES Final R esult [facility] [address] [place] [phone] [phone] * (ABNORMAL) CBC (11/17/2024 12:40 PM EDT) White Blood Count 12.0(H) 4.8 - 10.8 X10*3/uL [facility] Red Blood Count 4.46 4.20 - 5.50 X10*6/uL [facility] Hemoglobin 13.7 12.0 - 16.0 g/dl [facility] Hematocrit 40.1 37.0 - 47.0 % [facility] Mean Corpuscular Volume 89.9 80.0 - 98.0 [facility] Mean Corpuscular Hemoglobin 30.7 27.0 - 33.0 pg [facility] Mean Corpuscular HGB Conc 34.2 31.0 - 35.0 g/dl [facility] Red Cell Distribution Width 13.2 11.0 - 16.0 % [facility] Platelet Count 359 160 - 400 X10*3/uL [facility] Mean Platelet Volume 9.4 9.4 - 12.3 [facility] NRBC Pct Auto 0.0 0.0 - 0.2 /100WBC [facility] NRBC Abs Auto 0.000 0.0 - 0.012 X10*3/uL [facility] Blood Venous blood specimen / Unknown 11/17/2024 12:40 PM EDT 11/17/2024 1:32 PM EDT Casie Angulo DO LAB BLOOD ORDERABLES Final R esult [facility] [address] [place] [phone] * TSH (11/17/2024 12:40 PM EDT) Thyroid Stimulating Hormone 1.05 0.32 - 4.0 uIU/mL [facility] Comment:TSH 3rd Generation ( [facility]) Blood Venous blood specimen / Unknown 11/17/2024 12:40 PM EDT 11/17/2024 1:32 PM EDT Casie nAgulo DO LAB BLOOD ORDERABLES Final R esult Performing Organization Address [facility] Co de Phone Number [facility] [address] [place] [phone] * T4, Free (11/17/2024 12:40 PM EDT) Free T4 (Free Thyroxine) 1.05 0.71 - 1.85 ng/dL [facility] Blood Venous blood specimen / Unknown 11/17/2024 12:40 PM EDT 11/17/2024 1:32 PM EDT us Casie Angulo DO LAB BLOOD ORDERABLES Final R esult Performing Organization Address [facility] Co de Phone Number [facility] [address] [place] [phone] * (ABNORMAL) Hemoglobin A1c (11/17/2024 12:40 PM EDT) Hemoglobin A1c 6.2(H) <6.0 % [facility] Comment:Hemoglobin A1C Refer ence Range Adults: 4.8 - 6.0 % Non diabetic: < 6.0 % Goal: < 7.0 %Additional Action Suggested: > 8.0 %Note: Hemoglobin A1c results are invalid for patients with abnormal amounts of HbF. Blood transfusions may impact the HbA1c concentration in the patient sample. Estimated Average Glucose 131 mg/dL [facility] Comment:eAG = Estimated ave rage glucose which is %A1C expressed asaverage glucose, using the formula of the F4K-LlyolbxDorrwuf Glucose study (ADAG), Diabetes Care, Vol.31,#8,2007 Blood Venous blood specimen / Unknown 11/17/2024 12:40 PM EDT 11/17/2024 1:32 PM EDT us Casie Angulo DO LAB BLOOD ORDERABLES Final R esult Performing Organization Address City/[facility]/ZIP Co de Phone Number [facility] [address] [place], [place] [phone] * (ABNORMAL) Hepatic Function Panel (11/17/2024 12:40 PM EDT) Bilirubin, Total 0.5 0.0 - 1.0 mg/dL [facility] Bilirubin, Direct 0.2 0.0 - 0.5 mg/dL [facility] Aspartate Amino Transferase 17 5 - 31 U/L [facility] Alanine Aminotransferase 21 0 - 31 U/L [facility] Total Protein 8.1(H) 6.5 - 8.0 g/dL [facility] Albumin Level 4.5 3.5 - 5.0 g/dL [facility] Alkaline Phosphatase 83 39 - 117 U/L [facility] Blood Venous blood specimen / Unknown 11/17/2024 12:40 PM EDT 11/17/2024 1:32 PM EDT us Casie Angulo DO LAB BLOOD ORDERABLES Final R esult Performing Organization Address [facility]/ZIP Co de Phone Number [facility] [address] [place], [place] [phone] * Lipid Panel, Standard (11/17/2024 12:40 PM EDT) Triglycerides 81 <150 mg/dL [facility] Comment:Desirable Triglyceri de: less than 150 mg/dLBorderline High Triglyceride 150-199 mg/dLHigh Triglyceride: 200-499 mg/dLVery High Triglyceride: greater than or equal to 5OO mg/dL Cholesterol 162 <200 mg/dL [facility] Comment:Desirable Cholestero l: less than 200 mg/dLBorderline High Cholesterol: 200-239 mg/dLHigh Cholesterol: greater than 239 mg/dL LDL Cholesterol Calculated 99 <100 mg/dL [facility] Comment:Desirable LDL: less than 100 mg/dLNear Optimal/Above Optimal LDL: 110- 129 mg/dLBorderline High LDL: 130-159 mg/dLHigh LDL: 160-189 mg/dLVery High LDL: greater than or equal to 190 mg/dL HDL Cholesterol 47 >40 mg/dL [facility] Comment:Desirable HDL: great er than 40 mg/dL Note: This HDL assay may give artificially low results in patients with liver disease. Blood Venous blood specimen / Unknown 11/17/2024 12:40 PM EDT 11/17/2024 1:32 PM EDT us Casie Angulo DO LAB BLOOD ORDERABLES Final R esult [facility] [address] [place], [place] [phone] * (ABNORMAL) Basic Metabolic Panel (11/17/2024 12:40 PM EDT) Sodium 139 135 - 145 mmol/L [facility] Potassium 3.9 3.3 - 5.1 mmol/L [facility] Chloride 108 96 - 108 mmol/L [facility] Carbon Dioxide 25 22 - 29 mmol/L [facility] Anion Gap 10(L) 12 - 20 [facility] Urea Nitrogen (BUN) 11 9 - 16 mg/dL [facility] Creatinine, Serum 0.68 0.5 - 1.4 mg/dL [facility] Estimated Glomerular Filt Rate >60 [facility] Comment:Chronic Kidney Disea se: Estimated GFR < 60 mL/min/1.93s4Unvfpx Kidney Disease: Estimated GFR < 15 mL/min/1.73m2 Glucose 90 60 - 115 mg/dL [facility] Calcium 9.7 8.4 - 10.2 mg/dL [facility] Blood Venous blood specimen / Unknown 11/17/2024 12:40 PM EDT 11/17/2024 1:32 PM EDT Casie Angulo DO LAB BLOOD ORDERABLES Final R esult [facility] [address] [place] [phone] * (ABNORMAL) POCT HGB A1C (11/17/2024 12:31 PM EDT) Hemoglobin A1C 6.4(A) 4.0 - 6.0 % QC Media Lot # [id number] Lot# Expiration Date Blood 11/17/2024 12:3 1 PM EDT Casie Angulo DO POINT OF CARE TEST ENTER/ANASTASIYA T ORDERABLES Final Result * POCT Glucose (11/17/2024 12:30 PM EDT) Glucose Blood, POC 103 60 - 200 mg/dL [employer] Lot # [id number] Lot# Expiration Date [id number] Blood Capillary blood specimen / Unknown 11/17/2024 12:30 PM EDT Casie Angulo DO POINT OF CARE TEST ENTER/ANASTASIYA T ORDERABLES Final Result * XR KUB and Upright 2 Views (11/04/2024 3:31 AM EDT) Anatomical Region Laterality Modality Radiographic Meliza ging 11/04/2024 3:31 AM EDT Narrative 11/04/2024 3:33 AM EDT ? [facility] ?[address] ?[place] [address] ?XRay Report ? Signed ? Patient: Maki,Casie ?MR#: [id number] ?? 2998 ? : 1985 ?Acct:[id number] ? Age/Sex: 39 / F ?ADM Date: 11/03/24 ? Loc: HO.ED ? Attending Dr: ? Ordering Physician: Melody Nolan ?? Date of Service: 11/04/24 ?? Procedure(s): XR KUB ?? Accession Number(s): [id number] ? cc: Melody Nolan; Casie Angulo DO ? CLINICAL HISTORY: pain ? 1 view abdomen ? Comparison: CT/AK/SR - CT ABDOMEN PELVIS W IV CON [...] in OV> ? 11/04/24 0333 ? DD/ 0331 ? TD/TT: 11/04/24 0331 ? Package Worker: ? Procedure Note Nicholas, Image - 11/04/2024 [place] [address] XRay Report Signed Patient: Matt Maki#: [id number] : 1985Acct:[id number] Age/Sex: 39 / FADM Date: 11/03/24 Loc: HO.ED Attending Dr: Ordering Physician: Melody Nolan Date of Service: 11/04/24 Procedure(s): HELEN SCHWAB Accession Number(s): [id number] cc: Melody Nolan; Casie Angulo DO CLINICAL HISTORY: pain 1 view abdomen Comparison: CT/AK/SR - CT ABDOMEN PELVIS W IV CON [...] in OV> 11/04/[address] DD/ 0 TD/TT: 11/04/24330 Package Worker: [facility] External Provider IMG XR PROCEDURES Edited Result - Final * Urinalysis, Complete, with Reflex to Culture (11/03/2024 8:15 PM EDT) Color Urine Yellow [facility] Appearance Urine Cloudy [facility] PH 5.5 5.0 - 9.0 [facility] Glucose Urine UA Negative Negative mg/dL [facility] Urine Blood Negative Negative [facility] Specific [place] - Urine 1.015 1.005 - 1.025 [facility] Urine Protein Negative Neg-Trace mg/dL [facility] Urine Ketones Negative Negative mg/dL [facility] Nitrite Urine Negative Negative [facility] Leukocyte Esterase Urine Negative Negative [facility] RBC Urine 0-2 0 - 2 /HPF [facility] Urine WBC 0-5 0 - 5 /HPF [facility] Urine Squamous Epithelial Cell 3-5 0 - 2 /HPF [facility] Urine Bacteria None Seen None Seen [facility] Hyaline Casts, Urine 0-2 0 - 2 /LPF [facility] 11/03/2024 8:15 PM EDT 11/03/2024 8:23 PM EDT Narrative [facility] - 11/03/2024 8:47 PM EDT Urine, Clean Catch Generic External Data Provider LAB URINE ORDERAB LES Final Result Performing Organization Address City/State/[facility] Co de Phone Number [facility] [address] [place] [address] [phone] * SARS-CoV-2 RNA, Influenza A/B, and RSV RNA, Ql NAAT (11/03/2024 8:15 PM EDT) Influenza A PCR NEGATIVE Negative [facility] Influenza B PCR NEGATIVE Negative [facility] Resp Syncy Virus RNA Qual PCR NEGATIVE Negative [facility] SARS COV2 PCR NEGATIVE Negative [facility] Comment:All test results mus t be [...] use by authorized laboratories.Testing performed on the [facility] GeneXpert utilizingreal-time RT-PCR.All SARS CoV2 and positive influenza A/B results arereported to [facility]. 11/03/2024 8:15 PM EDT 11/03/2024 8:23 PM EDT Generic External Data Provider LAB MICROBIOLOGY - GENERAL ORDERABLES Final Result Performing Organization Address [facility] Co de Phone Number [facility] [address] [place] [address] [phone] * hCG, Total, Quantitative (11/03/2024 8:15 PM EDT) HCG Quantitative <2 mIU/mL [facility] Comment:Weeks post LMP Appro ximate hCG(Last Menstrual Period) Range (mIU/ml)3 - 4 weeks 9 - 1304 - 5 weeks 75 - 2,6005 - 6 weeks 850 - 20,8006 - 7 weeks 4000 - 100,2006 - 12 weeks 11,500 - 289,07690 - 16 weeks 18,300 - 137,10045 - 29 weeks (2nd trimester) 1,400 - 53,93873 - 41 weeks (3rd trimester) 940 - [...] ORDERAB LES Final Result Performing Organization Address [facility]/ZIP Co de Phone Number [facility] [address] [place] [phone] * Lipase (11/03/2024 8:15 PM EDT) Pathologist [facility] Lipase 26 8 - 78 U/L [facility] 11/03/2024 8:15 PM EDT 11/03/2024 8:23 PM EDT Generic External Data Provider LAB BLOOD ORDERAB LES Final Result Performing Organization Address [facility] Co de Phone Number [facility] [address] [place] [phone] * (ABNORMAL) Comprehensive Metabolic Panel (11/03/2024 8:15 PM EDT) Sodium 138 135 - 145 mmol/L [facility] Potassium 3.7 3.3 - 5.1 mmol/L [facility] Chloride 107 96 - 108 mmol/L [facility] Carbon Dioxide 25 22 - 29 mmol/L [facility] Anion Gap 10(L) 12 - 20 [facility] Urea Nitrogen (BUN) 13 9 - 16 mg/dL [facility] Creatinine, Serum 0.65 0.5 - 1.4 mg/dL [facility] Creatinine Clr Calc Pharmacy 136.6 [facility] Comment:Provided height and weight: 170.18 cm,97.522 kg.eGFR (calculated from the MDRD study equation) and eCrCl(calculated from the Cockcroft-Gault equation) are based ondifferent parameters and may not yield comparable results.If eCrCl result is absurd, please check patient'sheight/weight. Estimated Glomerular Filt Rate >60 [facility] Comment:Chronic Kidney Disea se: Estimated GFR < 60 mL/min/1.99n2Mifcyb Kidney Disease: Estimated GFR < 15 mL/min/1.73m2 Glucose 191(H) 60 - 115 mg/dL [facility] Calcium 8.9 8.4 - 10.2 mg/dL [facility] Bilirubin, Total 0.3 0.0 - 1.0 mg/dL [facility] Aspartate Amino Transferase 23 5 - 31 U/L [facility] Alanine Aminotransferase 27 0 - 31 U/L [facility] Total Protein 7.3 6.5 - 8.0 g/dL [facility] Albumin Level 4.0 3.5 - 5.0 g/dL [facility] Alkaline Phosphatase 71 39 - 117 U/L [facility] 11/03/2024 8:15 PM EDT 11/03/2024 8:23 PM EDT us Generic External Data Provider LAB BLOOD ORDERAB LES Final Result Performing Organization Address City/State/[facility] Co de Phone Number [facility] [address] [place] [phone] * US Abdomen Complete (09/29/2024 6:07 AM EST) Anatomical Region Laterality Modality Abdomen Ultrasound 09/29/2024 6:07 AM EST Narrative 09/29/2024 6:09 AM EST ? [facility] ?[address] ?[place] [address] ? Ultrasound Report ? Signed ? Patient: Maki,Casie ?MR#: [id number] ?? [id number] ? : 1985 ?Acct:[id number] ? Age/Sex: 39 / F ?ADM Date: 02/04/25 ? Loc: HO.US ? Attending Dr: Casie Angulo DO ? Ordering Physician: Casie Angulo DO ?? Date of Service: 09/28/24 ?? Procedure(s): US abdomen complete ?? Accession Number(s): [id number] ? cc: Casie Angulo DO ? CLINICAL [...] ? DD/ 6 ? TD/TT: 09/29/24606 ? Package Worker: ? Procedure Note Nicholas, Image - 09/29/2024 [place] [address] Ultrasound Report Signed Patient: Matt Maki#: [id number] : 1985Acct:[id number] Age/Sex: 39 / FADM Date: 09/28/24 Loc: HO.US Attending Dr: Casie Angulo DO Ordering Physician: Casie Angulo DO Date of Service: 09/28/24 Procedure(s): US abdomen complete Accession Number(s): [id number] cc: Casie Angulo DO CLINICAL HISTORY: intermittent [...] signed by Dayan Leblanc MD in OV> 09/29/24607 DD/ 6 TD/TT: 09/29/24606 Package Worker: Casie Angulo DO IMG US PROCEDURES Edited Res ult - Final * Hm Pap Smear (04/14/2023) Pathologist [facility] Pap Negative for intraephithelial lesion or malignancy Negative for intraephithelial lesion or malignancy, Other HPV Not Detected Undetected, Indeterminate, Quantitative, Not Detected Historical Provider [facility] Final Result * ALBUMIN, RANDOM URINE W/CREATININE [...] CONVERTED LEGACY LABS 06/28/2022 1:38 PM EDT us Casie Angulo DO LAB URINE ORDERABLES Final R esult CONVERTED LEGACY LABS from Last 3 Months or Most Recently Relevant to Health Maintenance Insurance [facility] - [facility]SN FULL (MEDICAID) Care Teams Technician Chemical Cleaning Relationship Specialty Start Date End Date Casie Angulo DO [address] [place] [address] PCP - General Family Medicine 08/25/18 Antoinette Liu, Torri [address] [place] [address] Pharmacist Internal Medicine 05/01/23
--- OUTSIDE RECORDS SUMMARY | 2024-12-24 09:35 | XMS_ITS | Encounter Summary ---
Author Organization [employer] Address [address] [place] [address] [address] [place] [address] Care Team Providers Care Tile And Marble Installer Name Role Phone Casie Angulo DO Primary Care Provider Antoinette Liu PharmD Unavailable [phone] Reason for Visit * Reason Onset Date Comments Nurse Triage 07/28/2023 Encounter Details Date Type Department Care Team ([facility] st Contact Info) Description 07/28/2023 Telephone [facility] [address] [place], [place] [phone] Casie Angulo DO [address] [place] [address] Nurse Triage Social History Tobacco Use Types [...] 10:00 AM EDT Office Visit [facility] [address] [place] [address] Casie Angulo DO [address] [place] [address] documented as of this encounter Goals Goal Patient Goal Type Associated Problems Recent Progress Patient-Stated? Author Hemoglobin A1c < 7 Result Component 6.2( 12:40 PM EDT) No Alivn Caldera PharmD Record your blood sugar as directed Result Component No Antoinette Liu PharmD Note: Encouraged patient to increase frequency of SMBG monitoring to guide tx modification. documented as of this encounter Visit Diagnoses Not on filedocumented in this encounter Additional Health Concerns Assessment Noted Time PHQ-9 Depression Total Score: 0 12/19/19 10:40 AM EDT documented as of this encounter Care Teams Tile And Marble Installer Relationship Specialty Start Date End Date Casie Angulo DO [address] [place] [address] PCP - General Family Medicine 08/25/18 Antoinette Liu PharmD [address] [place] [address] Pharmacist Internal Medicine 05/01/23 documented as of this encounter
--- OUTSIDE RECORDS SUMMARY | 2024-12-24 09:35 | XMS_ITS | Encounter Summary ---
Author Organization [employer] Address [address] [place] [address] [address] [place] [address] Care Team Providers Care Marine Equipment Test Engineer Name Role Phone Casie Angulo DO Primary Care Provider [phone] Alvin Caldera PharmD Unavailable Unavail able Antoinette Liu PharmD Unavailable Reason for Visit * Reason Comments Med Refill Encounter Details Date Type Department Care Team (Late st Contact Info) Description 10/23/2022 Refill [facility] [address] [place] [address] Casie Angulo DO [address] [place] [address] Muscle spasm Social History Tobacco Use Types [...] Description 12/31/2024 10:00 AM EDT Office Visit [facility] [address] [place] [address] Casie Angulo DO [address] [place] [address] documented as of this encounter Visit Diagnoses Diagnosis Muscle spasm Spasm of muscle documented in this encounter Care Teams Marine Equipment Test Engineer Relationship Specialty Start Date End Date [place] [address] PCP - General Family Medicine 08/25/18 Alvin Caldera, BriandaD [address] [place] [phone] Pharmacist Internal Medicine 12/10/22 04/30/23 Antoinette Liu PharmD [address] [place] [phone] Pharmacist Internal Medicine 05/01/23 documented as of this encounter
--- OUTSIDE RECORDS SUMMARY | 2024-12-24 09:35 | XMS_ITS | Encounter Summary ---
Author Organization [employer] Address [address] [place] [address] [address] [place] [address] Care Team Providers Care Interlibrary Loan Specialist Name Role Phone Casie Angulo DO Primary Care Provider [phone] Alvin Caldera PharmD Unavailable Unavail able Antoinette Liu PharmD Unavailable Encounter Details Date Type Department Care Team (Late st Contact Info) Description 10/08/2022 Orders Only [facility] [address] [place], [place] [phone] Casie Pinedo LPN Social History Tobacco Use [...] Description 12/31/2024 10:00 AM EDT Office Visit [facility] [address] [place], [place] [phone] Casie Angulo DO [address] [place], [place] [phone] documented as of this encounter Visit Diagnoses Not on filedocumented in this encounter Care Teams Interlibrary Loan Specialist Relationship Specialty Start Date End Date Casie Angulo DO [address] [place], [place] [phone] PCP - General Family Medicine 08/25/18 Alvin Caldera, PharmD [address] [place] [address] Pharmacist Internal Medicine 12/10/22 04/30/23 Antoinette Liu, BriandaD [address] [place] [address] Pharmacist Internal Medicine 05/01/23 documented as of this encounter
== END 2024-12-24 09:57 | disposition home or self-care (01) ==
LOC: HO.HGI 09:05
PROVIDERS: PCP Family Medicine; Visit Provider Nurse Practitioner Family
DX: K59.04 Chronic idiopathic constipation (principal); K64.8 Other hemorrhoids; K62.5 Hemorrhage of anus and rectum
CPT/HCPCS: 99213

== ENCOUNTER → 2024-12-24 09:04 | Outpatient (BNVA) | payer OTHER, SELFPAY | PROVIDERS: PCP Family Medicine; Visit Provider Nurse Practitioner Family | DX: K59.04 Chronic idiopathic constipation (principal); K64.8 Other hemorrhoids; K62.5 Hemorrhage of anus and rectum | CPT/HCPCS: 99212 ==

== ENCOUNTER 2025-03-27 23:03 | Emergency (ER) | payer OTHER, SELFPAY ==
[2025-03-27 23:12] VITALS: BP 109/71; PULSE 75; RESP 16; TEMP 36.7; O2SAT 97; BMI 33.7
--- NOTE | 2025-03-28 00:59 | PC.NURSE ---
IV established, labs obtained. Awaiting primary MD wagner.
[2025-03-28 01:06] LABS: Hematocrit 34.8 % (37.0-47.0); Hemoglobin 11.7 g/dl (12.0-16.0); Imm Gran Abs Auto 0.05 X10*3/uL (0.00-0.03); Imm Gran Pct Auto 0.5 % (0.0-0.4); Lymphocytes Absolute Auto 3.1 X10*3/uL (1.2-4.9); MANUAL DIFF FLAG NO; Mean Corpuscular HGB Conc 33.6 g/dl (31.0-35.0); Mean Corpuscular Hemoglobin 30.5 pg (27.0-33.0); Mean Corpuscular Volume 90.9 fL (80.0-98.0); NRBC Abs Auto 0.000 X10*3/uL (0.0-0.012); NRBC Pct Auto 0.0 /100WBC (0.0-0.2); Platelet Count 323 X10*3/uL (160-400); Red Blood Count 3.83 X10*6/uL (4.20-5.50); White Blood Count 9.5 X10*3/uL (4.8-10.8)
--- NOTE | 2025-03-28 01:09 | ED.HA ---
HPI - Headache General Chief Complaint: Headache Stated Complaint: Headache Time Seen by Provider: 03/28/25 00:46 Source: patient Mode of arrival: ambulatory Limitations: no limitations History of Present Illness ED Provider: Dr. Radha Murphy HPI Narrative: 39 year old female with history of NIDDM, presenting with frontal headaches ongoing for the last 5 days or so. Describes pain developing behind her right eye with associated eyelid twitching that has been ongoing for the last 24 hours. Describes associated photophobia. No reported vision changes. Has a hitory of migraines but only takes OTC APAP and ibuprofen for this without relief of headaches. No reported fevers. Denies numbness/tingling/weakness in her extremities, no word finding issues, no history of IVDA, does not use blood thinners. No reported anticoagulant use. Does not take control or other hormones. Denies sick contacts or recent travel. Related Data Home Medications ?Medication ?Instructions ?Recorded ?Confirmed fluticasone propionate 50 2 spray intranasal DAILY 08/27/23 12/24/24 mcg/actuation nasal spray,suspension loratadine 10 mg tablet 10 mg PO QAM 03/30/24 12/24/24 cholecalciferol (vitamin D3) 50 50 mcg PO DAILY 06/18/24 12/24/24 mcg (2,000 unit) capsule lidocaine 5 % topical patch 1 patch topical DAILY 06/18/24 12/24/24 norethindrone 1.5 mg-ethinyl 1 tab PO DAILY 12/24/24 12/24/24 estradiol 30 mcg(21)/iron 75 mg(7) tablet (Junel FE .01/21 (28)) Previous Rx's ?Medication ?Instructions ?Recorded magnesium citrate (Citrate of 150 ml PO DAILY PRN constipation 03/30/24 Magnesia oral) #296 mL docusate sodium 100 mg capsule 200 mg (2 x 100 mg) PO BEDTIME 06/18/24 #180 caps hydrocortisone 2.5 % topical cream 1 appl IA BID-QID PRN hemorrhoids 06/18/24 with perineal applicator #30 grams (Proctosol HC) linaclotide 290 mcg capsule 290 mcg PO QAM #30 caps 08/03/24 (Linzess) polyethylene glycol 3350 17 17 g PO DAILY #510 grams 08/27/24 gram/dose oral powder (Miralax) aluminum-mag hydroxide-simethicone 5 ml PO QID PRN indigestion #300 mL 09/25/24 400 mg-400 mg-40 mg/5 mL oral susp (Maalox Maximum Strength) omeprazole 20 mg capsule,delayed 20 mg PO DAILY 4 weeks #28 caps 09/25/24 release metoclopramide HCl 10 mg tablet 10 mg PO Q6H PRN nausea and 11/04/24 vomiting #14 tabs srgkmjhhno-iblkqqygwmgfi-utpbewtf 1 cap PO TID PRN headache #10 caps 03/28/25 50 mg-300 mg-40 mg capsule (Fioricet) Allergies Allergy/AdvReac Type Severity Reaction Status Date / Time No Known Allergies Allergy Mild NOT Verified 03/27/25 23:14 APPLICABLE Review of Systems Review of Systems: as per HPI, full review of systems performed and negative but for the above mentioned pertinent positives and negatives. [facility] Past Medical History Medical History Diabetes Anal pain Constipation Hemorrhoids with complication Pelvic varices Surgical History History of hemorrhoidectomy Family History Family History Maternal Aunt Breast cancer in female Mother HTN (hypertension) Social History Social History Alcohol intake: former Patient Tobacco Use Status: Current everyday Tobacco user Tobacco use type: Cigarette Cigarette Packs Per Day: 0.5 Cigarettes Per Day: 10.0 Years Smoked: 16 Smoked in Last 30 Days: Yes Use of substances other than those prescribed or required for medical reasons: No Advance Directives: No Advance Directives Information Provided: No Patient : No Physical Exam Exam: Exam: GENERAL: Ill-Appearing, appears uncomfortable. SKIN: Normal skin color for ethnicity, warm, dry, no rashes noted. HEENT:? Normocephalic, atraumatic, no stridor, dry mucous membranes, dentition intact, EOMI. NECK: Soft, supple, full ROM, midline structures nontender, no step-offs, no deformities, no lymphadenopathy. CHEST: Heart regular rhythm, no murmurs, symmetric chest rise and fall. PULMONARY: Clear to auscultation bilaterally, diminished at the bases, no labored breathing, no wheezes/rhales/rhonchi. ABDOMINAL: Soft, nondistended, nontender, positive bowel sounds in all quadrants. : Deferred. MUSCULOSKELETAL: Normal tone, full range of motion, no deformities, no peripheral edema. NEURO: Alert and oriented x3, CN II through XII intact, equal strength and sensation bilateral upper and lower extremities, no focal neurologic deficits.? PSYCHIATRIC: Flat affect, fluid speech, good eye contact and appropriate demeanor. Vital Signs: Vital Signs: Last Vital Signs Temp 98.6 F 03/28/25 06:35 Pulse 72 03/28/25 06:35 Resp 16 03/28/25 06:35 BP 110/63 03/28/25 06:35 Pulse Ox 96 03/28/25 06:35 O2 Del Method Room Air 03/28/25 06:35 BMI result Body Mass Index 33.7 Medications Administered Discontinued Medications Generic Name Dose Route Start Last Admin Trade Name Prashanthq PRN Reason Stop Dose Admin Lactated Ringer's 1,000 mls @ 999 mls/hr 03/28/25 01:31 03/28/25 03:00 Lr IV 03/28/25 02:31 Infused .Q1H1M ONE Infusion Acetaminophen 1,000 mg in 100 mls @ 400 mls/hr 03/28/25 05:09 03/28/25 06:22 Ofirmev IV 03/28/25 05:23 Infused ONCE ONE Infusion Ketorolac Tromethamine 15 mg 03/28/25 01:31 03/28/25 01:52 Ketorolac Tromethamine 15 Mg/Ml Vial IVPUSH 03/28/25 01:32 15 mg ONCE ONE Administration Metoclopramide HCl 10 mg 03/28/25 01:31 03/28/25 01:52 Metoclopramide Hcl 10 Mg/2 Ml Vial IVPUSH 03/28/25 01:32 10 mg ONCE ONE Administration Medical Decision Making Medical Decision Making MDM Narrative: Patient presents with a chief complaint of headache. ? The differential diagnosis on this patient includes but is not limited to migraine headache, tension headache, cluster headache, subarachnoid hemorrhage, dissection, venous thrombosis, meningitis, sinusitis, bleeding or tumor.? Based on history and physical exam, appropriate work-up was initiated. ? Medicated with migraine cocktail for headache. Improving after migraine cocktail. No red flags on exam or history to suggest emergent pathology of her headache. No indication for neuroimaging at this time. Clinical picture consistent with migraine headache. Using shared decision making, plan for discharge home to follow-up with primary care and/or specialist.? Patient understands and agrees with plan for discharge.? Discharged home in stable condition. Differential Diagnosis Differential Diagnoses: The differential diagnosis associated with the presentation includes (as above) Admission/Observation Consideration of admission/observation: Escalation of care including admission/observation considered Lab Data MDM Lab Attestation statement: I reviewed the patient's lab results. 03/28/25 00:58 03/28/25 00:58 Labs: Lab Results 03/28/25 Range/Units 00:58 WBC 9.5 (4.8-10.8) X10*3/uL RBC 3.83 L (4.20-5.50) X10*6/uL Hgb 11.7 L (12.0-16.0) g/dl Hct 34.8 L (37.0-47.0) % MCV 90.9 (80.0-98.0) fL MCH 30.5 (27.0-33.0) pg MCHC 33.6 (31.0-35.0) g/dl RDW 13.2 (11.0-16.0) % Plt Count 323 (160-400) X10*3/uL MPV 9.1 L (9.4-12.3) fL Immature Gran % (Auto) 0.5 H (0.0-0.4) % Neut % (Auto) 58.8 (45-73) % Lymph % (Auto) 32.7 (20-40) % [place] % (Auto) 6.1 (2-11) % Eos % (Auto) 1.6 (0-4) % Baso % (Auto) 0.3 (0-2) % Lymph # (Auto) 3.1 (1.2-4.9) X10*3/uL [place] # (Auto) 0.6 (0.1-1.2) X10*3/uL Eos # (Auto) 0.2 (0.0-0.4) X10*3/uL Baso # (Auto) 0.0 (0.0-0.2) X10*3/uL Abs Immat Gran (auto) 0.05 H (0.00-0.03) X10*3/uL Absolute Neuts (auto) 5.6 (2.0-8.3) x10*3/uL Absolute Nucleated RBC 0.000 (0.0-0.012) X10*3/uL Nucleated RBC % (auto) 0.0 (0.0-0.2) /100WBC Sodium 143 (135-145) mmol/L Potassium 3.6 (3.3-5.1) mmol/L Chloride 108 (96-108) mmol/L Carbon Dioxide 26 (22-29) mmol/L Anion Gap 13 (12-20) BUN 18 H (9-16) mg/dL Creatinine 0.63 (0.5-1.4) mg/dL Estim Creat Clear Calc 140.9 Estimated GFR > 60 Random Glucose 141 H (60-115) mg/dL Calcium 8.9 D (8.4-10.2) mg/dL Total Bilirubin 0.3 (0.0-1.0) mg/dL AST 22 (5-31) U/L ALT 24 (0-31) U/L Alkaline Phosphatase 91 (39-117) U/L Total Protein 7.0 (6.5-8.0) g/dL Albumin 4.3 (3.5-5.0) g/dL Beta HCG, Quant < 2 mIU/mL External Record Review External record reviewed: Outpatient record and Primary care record Prescription Management I considered prescription management with: Pain Medication Chronic Conditions Patient?s care impacted by: Diabetes Discharge Plan Discharge Clinical Impression: Migraine Patient Disposition: Home, Self-Care Instructions: Migraine Headache (ED) Additional Instructions: Use Fioricet as needed for severe headaches. Do not use this medication while driving as it can make you drowsy. Return to the ER with any new or worsening symptoms including: Fevers greater than 100?, neck stiffness, skin rashes, any new symptom that concerns you. Call 911 with any medical emergency. Prescriptions: New cpcyjjekqz-gwnzxxkifldnj-emae [Fioricet] 50-300-40 mg capsule 1 cap PO TID PRN (Reason: headache) Qty: 10 0RF No Action Linzess 290 mcg capsule 290 mcg PO QAM Qty: 30 4RF omeprazole 20 mg capsule,delayed release(DR/EC) 20 mg PO DAILY 28 Days Qty: 28 0RF alum-mag hydroxide-simeth [Maalox Maximum Strength] 400-400-40 mg/5 mL suspension 5 ml PO QID PRN (Reason: indigestion) Qty: 300 0RF metoclopramide HCl 10 mg tablet 10 mg PO Q6H PRN (Reason: nausea and vomiting) Qty: 14 0RF fluticasone propionate 50 mcg/actuation spray,suspension 2 spray intranasal DAILY loratadine 10 mg tablet 10 mg PO QAM magnesium citrate [Citrate of Magnesia] Solution 150 ml PO DAILY PRN (Reason: constipation) Qty: 296 5RF lidocaine 5 % adhesive patch,medicated 1 patch topical DAILY cholecalciferol (vitamin D3) 50 mcg (2,000 unit) capsule 50 mcg PO DAILY docusate sodium 100 mg capsule 200 mg PO BEDTIME Qty: 180 3RF hydrocortisone [Proctosol HC] 2.5 % cream with perineal applicator 1 appl IA BID-QID PRN (Reason: hemorrhoids) Qty: 30 2RF polyethylene glycol 3350 [Miralax] 17 gram/dose powder 17 g PO DAILY Qty: 510 2RF norethindrone-e.estradiol-iron [Junel FE 1.5/30 (28)] 1.5 mg-30 mcg (21)/75 mg (7) tablet 1 tab PO DAILY Interventions: ED Discharge Assessment Last Done: 03/28/25 06:35 Discharge Date/Time: 03/28/25 06:36 Print Language: Hebrew
[2025-03-28 01:28] LABS: Alanine Aminotransferase 24 U/L (0-31); Albumin Level 4.3 g/dL (3.5-5.0); Alkaline Phosphatase 91 U/L (39-117); Anion Gap 13 (12-20); Aspartate Amino Transferase 22 U/L (5-31); Blood Urea Nitrogen 18 mg/dL (9-16); Calcium 8.9 mg/dL (8.4-10.2); Carbon Dioxide 26 mmol/L (22-29); Chloride 108 mmol/L (96-108); Creatinine Clr Calc Pharmacy 140.9; Estimated Glomerular Filt Rate > 60; Potassium 3.6 mmol/L (3.3-5.1); Sodium 143 mmol/L (135-145); Total Protein 7.0 g/dL (6.5-8.0)
[2025-03-28] MEDS: Lactated Ringers 1,000 ML 999 ML IV (01:52)
[2025-03-28 04:45] VITALS: BP 110/63; PULSE 72; RESP 16; TEMP 37; O2SAT 96
[2025-03-28 06:35] VITALS: BP 110/63; PULSE 72; RESP 16; TEMP 37; O2SAT 96
== END 2025-03-28 06:36 | disposition home or self-care (01) ==
PROVIDERS: Emergency Provider Emergency Medicine; PCP Family Medicine
DX: G43.909 Migraine, unspecified, not intractable, without status migrainosus (principal); E11.9 Type 2 diabetes mellitus without complications; H53.149 Visual discomfort, unspecified
CPT/HCPCS: 36415; 80053; 84702; 85025; 96361; 96365; 96375; 99284; J0131; J1885; J2765; J7120

== ENCOUNTER 2025-05-07 11:50 | Emergency (ER) | payer OTHER, SELFPAY ==
--- NOTE | ~2025-05-07 | XR_ITS ---
CLINICAL HISTORY: Right distal tenderness plantar 3rd MTP region 3 view right foot Comparison: None provided Findings: No fractures or dislocations. No significant loss of joint space, osteophytes, or erosions. No ankle effusion. No radiopaque foreign body. IMPRESSION: 1. No acute findings. If pain persists, consider MRI of the right foot. This document has been electronically signed by: Sixto Nguyen MD on 05/07/2025 14:28:09
[2025-05-07 12:11] VITALS: BP 123/84; PULSE 80; RESP 20; TEMP 36.5; O2SAT 98; BMI 34.8
--- NOTE | 2025-05-07 12:11 | ED.GENADULT ---
HPI - General Adult General Chief complaint: Extremity Injury, Lower Stated complaint: ball on bottom r foot leg pain Time Seen by Provider: 05/07/25 12:43 History of Present Illness ED Provider: kae HPI narrative: 40 F with DM here with R plantar foot pain x weeks no injiry. Also has burning like pain worse in AM to feet. No polydypsia/uria. no fever. Related Data Home Medications ?Medication ?Instructions ?Recorded ?Confirmed fluticasone propionate 50 2 spray intranasal DAILY 08/27/23 12/24/24 mcg/actuation nasal spray,suspension loratadine 10 mg tablet 10 mg PO QAM 03/30/24 12/24/24 cholecalciferol (vitamin D3) 50 50 mcg PO DAILY 06/18/24 12/24/24 mcg (2,000 unit) capsule lidocaine 5 % topical patch 1 patch topical DAILY 06/18/24 12/24/24 norethindrone 1.5 mg-ethinyl 1 tab PO DAILY 12/24/24 12/24/24 estradiol 30 mcg(21)/iron 75 mg(7) tablet (Junel FE 1.01/21 ()) Previous Rx's ?Medication ?Instructions ?Recorded magnesium citrate (Citrate of 150 ml PO DAILY PRN constipation 03/30/24 Magnesia oral) #296 mL docusate sodium 100 mg capsule 200 mg (2 x 100 mg) PO BEDTIME 06/18/24 #180 caps hydrocortisone 2.5 % topical cream 1 appl DE BID-QID PRN hemorrhoids 06/18/24 with perineal applicator #30 grams (Proctosol HC) linaclotide 290 mcg capsule 290 mcg PO QAM #30 caps 08/03/24 (Linzess) polyethylene glycol 3350 17 17 g PO DAILY #510 grams 08/27/24 gram/dose oral powder (Miralax) aluminum-mag hydroxide-simethicone 5 ml PO QID PRN indigestion #300 mL 09/25/24 400 mg-400 mg-40 mg/5 mL oral susp (Maalox Maximum Strength) omeprazole 20 mg capsule,delayed 20 mg PO DAILY 4 weeks #28 caps 09/25/24 release metoclopramide HCl 10 mg tablet 10 mg PO Q6H PRN nausea and 11/04/24 vomiting #14 tabs qsjfaeewhu-mgjfstcrqvzqg-wbsayrjq 1 cap PO TID PRN headache #10 caps 03/28/25 50 mg-300 mg-40 mg capsule (Fioricet) pregabalin 75 mg capsule 75 mg PO BID 14 days #28 caps 05/07/25 Allergies Allergy/AdvReac Type Severity Reaction Status Date / Time No Known Allergies Allergy Mild NOT Verified 05/07/25 12:12 APPLICABLE [facility] Past Medical History Medical History Diabetes Anal pain Constipation Hemorrhoids with complication Pelvic varices Surgical History History of hemorrhoidectomy Family History Family History Maternal Aunt Breast cancer in female Mother HTN (hypertension) Social History Social History Alcohol intake: former Patient Tobacco Use Status: Current everyday Tobacco user Tobacco use type: Cigarette Cigarette Packs Per Day: 0.5 Cigarettes Per Day: 10.0 Years Smoked: 16 Advance Directives: No Advance Directives Information Provided: No Do you have a plan to hurt others: No Plan Physical Exam ED Exam Exam: EXAM: Gen: Alert, awake, well appearing, well hydrated. Head: Atraumatic Eyes: Anicteric, Normal conjunctiva. ENT: Moist mucosa, no pallor. ? Neck: Supple. Skin: ?No observable rash or bruising on exposed or examined skin Respiratory: Breathing comfortably, No distress.Clear to auscultation bilaterally, symmetric chest expansion, No wheeze, rales, ronchi. Cardiovascular: Regular rate and rhythm. No murmurs or rub. Well perfused periphery, warm extremities. No edema. ? Abdominal: No focal tenderness. Soft, no objective distension. No palpable masses or obvious organomegaly. ?No guarding, no rebound tenderness or other peritoneal findings. : No flank tenderness. Neuro: Alert. Gross movement of all extremities intact. ? Psych: Calm. Cooperative. MSK: No grossly visible deformity. Non erythematous protuberance that is tender just proximal to the ball of the foot in the right side. No focal distinct metatarsal or phalangeal bony tenderness of the foot patient can ambulate. Vital signs: See flowsheet Vital Signs: Vital Signs - 24 hr 05/07/25 12:11 05/07/25 13:33 05/07/25 14:55 Temperature 97.7 F 97.8 F Pulse Rate 80 69 69 Respiratory Rate 20 18 18 Blood Pressure 123/84 111/60 111/60 Pulse Oximetry 98 96 96 Oxygen Delivery Method Room Air Room Air Room Air BMI result Body Mass Index 34.8 Course Course Course Narrative: Rapid medical examination performed in triage by Wendy Gandhi PA-C. Patient is a 40 year old assigned female at presenting to the emergency department with bilateral foot tingling / pain. Patient states she has diabetes and does not have neuropathy. Detailed physical exam and review of systems are deferred to the human resource adviser. Labs ordered. Patient placed back in the waiting room pending room availability and results. Medical Decision Making Medical Decision Making MDM Narrative: 40 F with likely neuropathy and R foot pain Tender prominence on plantar foot R. No bony deformity of clinical suggestion of infection. Adriana for neuropathy. Podiatry follow up recommended. Lab Data 05/07/25 12:20 05/07/25 12:20 Labs: Lab Results 05/07/25 Range/Units 12:20 WBC 8.7 (4.8-10.8) X10*3/uL RBC 3.98 L (4.20-5.50) X10*6/uL Hgb 12.4 (12.0-16.0) g/dl Hct 35.8 L (37.0-47.0) % MCV 89.9 (80.0-98.0) fL MCH 31.2 (27.0-33.0) pg MCHC 34.6 (31.0-35.0) g/dl RDW 12.8 (11.0-16.0) % Plt Count 365 (160-400) X10*3/uL MPV 8.8 L (9.4-12.3) fL Immature Gran % (Auto) 0.3 (0.0-0.4) % Neut % (Auto) 52.7 (45-73) % Lymph % (Auto) 38.4 (20-40) % Crisp % (Auto) 6.4 (2-11) % Eos % (Auto) 1.6 (0-4) % Baso % (Auto) 0.6 (0-2) % Lymph # (Auto) 3.4 (1.2-4.9) X10*3/uL Crisp # (Auto) 0.6 (0.1-1.2) X10*3/uL Eos # (Auto) 0.1 (0.0-0.4) X10*3/uL Baso # (Auto) 0.1 (0.0-0.2) X10*3/uL Abs Immat Gran (auto) 0.03 (0.00-0.03) X10*3/uL Absolute Neuts (auto) 4.6 (2.0-8.3) x10*3/uL Absolute Nucleated RBC 0.000 (0.0-0.012) X10*3/uL Nucleated RBC % (auto) 0.0 (0.0-0.2) /100WBC Sodium 140 (135-145) mmol/L Potassium 4.0 (3.3-5.1) mmol/L Chloride 107 (96-108) mmol/L Carbon Dioxide 25 (22-29) mmol/L Anion Gap 12 (12-20) BUN 17 H (9-16) mg/dL Creatinine 0.61 (0.5-1.4) mg/dL Estim Creat Clear Calc 146.6 Estimated GFR > 60 Random Glucose 120 H (60-115) mg/dL Calcium 9.0 (8.4-10.2) mg/dL Magnesium 2.0 (1.6-2.6) mg/dL Total Bilirubin 0.2 (0.0-1.0) mg/dL AST 22 (5-31) U/L ALT 29 (0-31) U/L Alkaline Phosphatase 81 (39-117) U/L Total Protein 7.2 (6.5-8.0) g/dL Albumin 4.4 (3.5-5.0) g/dL TSH 0.85 (0.32-4.0) uIU/mL Discharge Plan Discharge Clinical Impression: Neuropathy Patient Disposition: Home, Self-Care Instructions: Peripheral Neuropathy (ED) Additional Instructions: You were evaluated for foot pain and tingling in the feet with diffuse feet pain this maybe secondary to neuropathy due to longstanding diabetes. You had a foot x-ray of the right which showed no bony abnormalities you can follow up with mobile home set up person with your primary doctor referring you if you would like. As far as the neuropathy we will give you a brief course of neuropathy medications any continue treatment we will need to be prescribed by your primary doctor thinks Prescriptions: New pregabalin 75 mg capsule 75 mg PO BID 14 Days Qty: 28 0RF No Action Linzess 290 mcg capsule 290 mcg PO QAM Qty: 30 4RF omeprazole 20 mg capsule,delayed release(DR/EC) 20 mg PO DAILY 28 Days Qty: 28 0RF alum-mag hydroxide-simeth [Maalox Maximum Strength] 400-400-40 mg/5 mL suspension 5 ml PO QID PRN (Reason: indigestion) Qty: 300 0RF metoclopramide HCl 10 mg tablet 10 mg PO Q6H PRN (Reason: nausea and vomiting) Qty: 14 0RF zpoufogxxt-oumevzlvfqauu-kghn [Fioricet] 50-300-40 mg capsule 1 cap PO TID PRN (Reason: headache) Qty: 10 0RF fluticasone propionate 50 mcg/actuation spray,suspension 2 spray intranasal DAILY loratadine 10 mg tablet 10 mg PO QAM magnesium citrate [Citrate of Magnesia] Solution 150 ml PO DAILY PRN (Reason: constipation) Qty: 296 5RF lidocaine 5 % adhesive patch,medicated 1 patch topical DAILY cholecalciferol (vitamin D3) 50 mcg (2,000 unit) capsule 50 mcg PO DAILY docusate sodium 100 mg capsule 200 mg PO BEDTIME Qty: 180 3RF hydrocortisone [Proctosol HC] 2.5 % cream with perineal applicator 1 appl DE BID-QID PRN (Reason: hemorrhoids) Qty: 30 2RF polyethylene glycol 3350 [Miralax] 17 gram/dose powder 17 g PO DAILY Qty: 510 2RF norethindrone-e.estradiol-iron [Junel FE 1.5/30 (28)] 1.5 mg-30 mcg (21)/75 mg (7) tablet 1 tab PO DAILY Interventions: ED Discharge Assessment Last Done: 05/07/25 14:55 Discharge Date/Time: 05/07/25 14:56 Print Language: Bahraini
--- NOTE | 2025-05-07 12:14 | ECG_ITS ---
Test Reason : CHEST PAIN Blood Pressure : */* mmHG Vent. Rate : 74 BPM Atrial Rate : 74 BPM P-R Int : 174 ms QRS Dur : 94 ms QT Int : 368 ms P-R-T Axes : 8 16 29 degrees QTcB Int : 408 ms Normal sinus rhythm Normal ECG When compared with ECG of 25-Sep-2024 06:48, No significant change was found Referred By: Generic ED Physician Electronically Signed By: CHERELLE LANG MD
--- OUTSIDE RECORDS SUMMARY | 2025-05-07 12:25 | XMS_ITS | Encounter Summary ---
Author Organization [employer] Address [address] [place] [address] [address] [place] [address] Care Team Providers Care Shipfitter Apprentice Name Role Phone Casie Angulo DO Primary Care Provider + [phone] Alvin Caldera PharmD Unavailable Unavail able Antoinette Liu PharmD Unavailable [phone] Encounter Details Date Type Department Care Team (Late st Contact Info) Description 10/08/2022 Orders Only [facility] [address] [place] [address] Casie Pinedo LPN Social History Tobacco Use [...] as of this encounter Plan of Treatment Not on file documented as of this encounter Visit Diagnoses Not on filedocumented in this encounter Care Teams Shipfitter Apprentice Relationship Specialty Start Date End Date Casie Angulo DO [address] [place] [address] PCP - General Family Medicine 08/25/18 Alvin Caldera, PharmD [address] [place] [address] Pharmacist Internal Medicine 12/10/22 04/30/23 Antoinette Liu, PharmD [address] [place] [address] Pharmacist Internal Medicine 05/01/23 01/03/25 documented as of this encounter
--- OUTSIDE RECORDS SUMMARY | 2025-05-07 12:25 | XMS_ITS | Encounter Summary ---
Author Organization [employer] Address [address] [place] [address] [address] [place] [address] Care Team Providers Care Shaker Operator Name Role Phone JefersonCasie martins Primary Care Provider + [phone] Antoinette Liu PharmD Unavailable [phone] Reason for Visit * Reason Onset Date Comments unable to post insurance 11/03/2024 Encounter Details Date Type Department Care Team ([facility] st Contact Info) Description 11/03/[address] [facility] [address] [place] [address] Nicole Lozano DDS unable to post insurance Social History Tobacco [...] for 1pm emergency appt. Unable to post HSN insurance portal not running on [employer] * Telephone Encounter - Nancie Mccann - 11/03/2024 9:13 AM EDT Patient cancelled appt today 10 am same day. She wanted to reschedule. Patient has been informed that office will reach out to rs appt. Due to same day cancellation. Patient understood DR documented in this encounter Plan of Treatment Not on file documented as of this encounter Goals Goal Patient Goal Type Associated Problems Recent Progress Patient-Stated? Author Hemoglobin A1c < 7 Result Component 7(12/31/2024 10:04 AM EDT) No Alvin Caldera, PharmD Record your blood sugar as directed Result Component No Antoinette Liu PharmD Note: Encouraged patient to increase frequency of SMBG monitoring to guide tx modification. documented as of this encounter Visit Diagnoses Not on filedocumented in this encounter Additional Health Concerns Assessment Noted Time PHQ-9 Depression Total Score: 8 11/19/19 24 9:38 AM EDT documented as of this encounter Care Teams Shaker Operator Relationship Specialty Start Date End Date Casie Angulo DO [address] [place] [address] PCP - General Family Medicine 08/25/18 Antoinette Liu, Torri [address] [place] [address] Pharmacist Internal Medicine 05/01/23 01/03/25 documented as of this encounter
--- OUTSIDE RECORDS SUMMARY | 2025-05-07 12:25 | XMS_ITS | Encounter Summary ---
Author Organization [employer] Address [address] [place] [address] [address] [place] [address] Care Team Providers Care Home Health Provider Name Role Phone Casie Angulo DO Primary Care Provider + [phone] Alvin Caldera PharmD Unavailable Unavail able Antoinette Liu PharmD Unavailable [phone] Reason for Visit * Reason Comments Med Refill Encounter Details Date Type Department Care Team (Late st Contact Info) Description 10/23/2022 Refill [facility] [address] [place] [address] Casie Angulo DO [address] [place], [place] [phone] Muscle spasm Social History Tobacco Use Types [...] muscle documented in this encounter Care Teams Home Health Provider Relationship Specialty Start Date End Date Casie Angulo DO [address] [place] [address] PCP - General Family Medicine 08/25/18 Alvin Caldera, PharmD [address] [place] [address] Pharmacist Internal Medicine 12/10/22 04/30/23 Antoinette Liu, BriandaD [address] [place] [address] Pharmacist Internal Medicine 05/01/23 01/03/25 documented as of this encounter
--- OUTSIDE RECORDS SUMMARY | 2025-05-07 12:25 | XMS_ITS | Encounter Summary ---
Author Organization [employer] Address [address] [place] [address] [address] [place] [address] Care Team Providers Care Subscription Crew Leader Name Role Phone Casie Angulo DO Primary Care Provider + [phone] Alvin Caldera PharmD Unavailable Unavail able Antoinette Liu PharmD Unavailable [phone] Encounter Details Date Type Department Care Team (Late st Contact Info) Description 09/19/2022 Orders Only [facility] [address] [place] [address] Whitney James LPN Social History Tobacco Use [...] on filedocumented in this encounter Care Teams Subscription Crew Leader Relationship Specialty Start Date End Date Casie Angulo DO [address] [place] [address] PCP - General Family Medicine 08/25/18 Alvin Caldera, PharmD [address] [place] [address] Pharmacist Internal Medicine 12/10/22 04/30/23 Antoinette Liu, PharmD [address] [place] [phone] Pharmacist Internal Medicine 05/01/23 01/03/25 documented as of this encounter
--- OUTSIDE RECORDS SUMMARY | 2025-05-07 12:25 | XMS_ITS | Clinical Summary ---
Author Organization [employer] Address [address] [place] [address] [address] [place] [address] Care Team Providers Care National Sales Director Name Role Phone Casie Angulo Primary Care Provider + [phone] Allergies No known active allergies Medications Blood [...] complication, without long-term current use of insulin ([facility]) 1 each by Other route 2 times daily. USE TWICE DAILY 100 each 4 Active glucose blood (FREESTYLE LITE) test stripIndication s:Type 2 diabetes mellitus without complication, without long-term current use of insulin ([facility]) USE TO TEST TWICE A DAY 100 strip 4 Active UltiCare Alcohol Swabs 70 % padsIndications :Type 2 diabetes mellitus without complication, without long-term current use of insulin ([facility]) USE 1 SWAB TOPICALLY 2 TIMES EVERY DAY 100 each 4 Active cholecalciferol (Vitamin D-3) 50 MCG (2000 UT) capsuleIndicati ons:Vitamin D deficiency Take 1 capsule (50 mcg) by mouth Once per day. 30 capsule 4 Active Varenicline Tartrate, Starter, (Chantix Starting [...] doses. 20 tablet 5 Active Junel FE 1.30 1.5-30 MG-MCG tablet Take 1 tablet by [...] complication, without long-term current use of insulin ([facility]) Inject 0.25 mg under the skin 1 [...] pt to come get examined today at [facility] Will repeat labs due to Hx of leukocytosis and r/o UA Recommended to hold Metformin x 2 days and see if Sx improved Unclear if related to pelvic congestion syndrome Recommend to be seen in the [place] due to nasal congestion and other Sx, may needs to be tested for viral diseases, ei. covid and flu Acute frontal sinusitis 06/03/2023 02/0 02/2024 Low-lying placenta 11/27/2022 AMA (advanced maternal age) multigravida 35+ 3 11/27/2022 Depression 10/16/2022 12/18/2022 Smoker 10/16/2022 11/27/2022 Body aches 07/29/2018 11/27/2022 Alopecia 07/25/2015 12/18/2022 Chronic migraine 07/25/2015 10/01/2023 Immunizations Immunization Administration Dates Next Due DTaP 08/25/1997 Hep [...] Sign Reading Time Taken Comments Blood Pressure 128/70 12/31/2024 10:02 AM EDT Pulse 70 12/31/2024 10:02 AM EDT Temperature 36.8 C (98.3 F) 12/31/2024 10:02 AM EDT Respiratory Rate 19 12/31/2024 10:02 AM EDT Oxygen Saturation 99% 12/31/2024 10:02 AM EDT Inhaled Oxygen Concentration - - Weight 97.1 kg (214 lb) 12/31/2024 10:02 AM EDT Height 170.2 cm (5' 7 ) 12/31/2024 10:02 AM EDT Body Mass Index 33.52 12/31/2024 10:02 AM EDT Plan of Treatment Health Maintenance Due Date Last Done Comments Diabetes: Foot Exam 1993 IPV Vaccines (2 of 3 - 4-dose series) 09/22/1997 08/25/1997 Family Planning (PISQ) 1998 HPV Vaccines (1 - 3-dose series) 1998 Mammogram 2023 Diabetes: Urine Protein Screening 06/28/2023 06/28/2022, 01/23/2021 Dental Oral Exam 10/09/2024 04/07/2024 Dental Prophylaxis 10/09/2024 04/07/2024 Diabetes: Hemoglobin A1C 04/02/2025 025, 11/17/2024, 11/17/2024, Additional history exists COVID-19 Vaccine ( season) 2025 11/30/2021, 07/02/2021, 06/11/2021 Influenza Vaccine (#1) 2025 06/30/2019 Dental X-Ray: Bitewings 11/06/2025 11/06/19 25, 10/25/2024, 04/07/2024 Depression Screening 11/17/2025 11/17/2024, 11/18/19 25 Disability Screening 11/17/2025 11/17/2024 Lipid Panel 11/17/2025 11/17/2024, 08/26, 06/03/2023, Additional history exists SDOH Screening 11/17/2025 11/17/2024 Alcohol/Substance Use Screening 12/31/2025 12/31/2024 Tobacco Screening 12/31/2025 12/31/2024 Eye Exam 02/15/2026 02/16/2024, 01/24, 02/16/2024, Additional history exists Pap Smear 04/14/2026 04/14/2023, 04/0 11/2021, 01/04/2019 Dental X-Ray: Full Mouth 04/08/2027 04/07/2024, 07/1 02/2024 Cervical Cancer Screening 04/14/2028 HPV/Cotest 04/14/2028 04/14/2023, 04/0 11/2021, 01/04/2019 DTaP/Tdap/Td Vaccines (4 - Td or Tdap) 04/16/2029 04/16/2019, 07/04/2010, 08/25/1997 Zoster Vaccines (1 of 2) 2033 RSV Patients and Patients Aged 60 years or older (1 - 1-dose 75+ series) 2058 Hepatitis B Vaccines Discontinued 06/26/2001, 07/18/19 98 Pneumococcal Vaccine: Pediatrics (0 to 5 Years) and At-Risk Patients (6 to 49) Years Completed 06/04/2024 HIV Screening Completed 11/17/2024, 08/26, 06/28/2022, Additional history exists Hepatitis C Screening Completed 11/17/2024 , 09/19/2023, 06/28/2022, Additional history exists HIB Vaccines Aged Out No longer eligi ble based on patient's age to complete this topic Hepatitis A Vaccines Aged Out No long er eligible based on patient's age to complete this topic Meningococcal B Vaccine Aged Out No l onger eligible based on patient's age to complete [...] Component 7(12/31/2024 10:04 AM EDT) No Alvin Caldera PharmMerissa Record your blood sugar as directed Result Component No Antoinette Liu PharmD Note: Encouraged patient to increase frequency of SMBG monitoring to guide tx modification. Procedures Procedure Name Priority Date/Time Associated Diagnosis Comments POCT GLYCATED HEMOGLOBIN, TOTAL Routine 12/31/2024 10:04 AM EDT Type 2 diabetes mellitus without complication, without long-term current use of insulin ([facility]) HEPATITIS C AB W/REFL TO HCV RNA, [...] Chronic allergic rhinitis RUQ pain Healthcare maintenance BITEWING - SINGLE RADIOGRAPHIC IMAGE Routine 11/05/2024 11:30 AM EDT PROPHYLAXIS - ADULT Routine 04/07/2024 1 0:00 [...] Relevant to Health Maintenance Results * (ABNORMAL) POCT HGB A1C (12/31/2024 10:04 AM EDT) Pathologist [facility] [place] Hemoglobin A1C 7.0(A) 4.0 - 6.0 % QC Media Lot # [id number] Lot# Expiration Date ,888,[id number] Blood 12/31/2024 10:0 4 AM EDT Casie Angulo DO POINT OF CARE TEST ENTER/ANASTASIYA T ORDERABLES Final Result * Hepatitis C Antibody with Reflex to HCV, RNA, Quantitative, Real-Time PCR (11/17/2024 12:40 PM EDT) [facility] Hepatitis C Antibody Nonreactive Nonreactive [facility] Comment:Antibodies to HCV no t detected; does not exclude early acuteHCV infection. Blood Venous blood specimen / Unknown 11/17/2024 12:40 PM EDT 11/17/2024 1:32 PM EDT Casie Angulo LAB BLOOD ORDERABLES Final R esult Performing Organization Address City/[facility]/ZIP Co de Phone Number [facility] [address] [place] [address] [phone] * HIV-1/2 Antigen and Antibodies, Fourth Generation, with Reflexes (11/17/2024 12:40 PM EDT) [facility] HIV AB/AG Nonreactive Nonreactive [facility] Comment:HIV-1 p24 Ag and/or HIV-1/HIV-2 Ab not detected.A test result that is nonreactive does not exclude thepossibility of exposure to or infection with HIV-1 and/orHIV-2. Nonreactive results in this assay for individualswith prior exposure to HIV-1 and/or HIV-2 may be due toantigen and antibody levels that are below the limit ofdetection of this assay.The [employer] HIV Ag/Ab Combo assay result andsupplemental assay results should be interpreted inconjunction with the patient's clinical presentation,history and other laboratory results. If the results areinconsistent with clinical evidence, additional testing issuggested to confirm the result. Blood Venous blood specimen / Unknown 11/17/2024 12:40 PM EDT 11/17/2024 1:32 PM EDT Casie Angulo LAB BLOOD ORDERABLES Final R esult Performing Organization Address [facility]/ZIP Co de Phone Number [facility] [address] [place] [address] [phone] * Lipid Panel, Standard (11/17/2024 12:40 PM EDT) Triglycerides 81 <150 mg/dL [facility] Comment:Desirable Triglyceri de: less than 150 mg/dLBorderline High Triglyceride 150-199 mg/dLHigh Triglyceride: 200-499 mg/dLVery High Triglyceride: greater than or equal to 5OO mg/dL Cholesterol 162 <200 mg/dL [facility] Comment:Desirable Cholestero l: less than 200 mg/dLBorderline High Cholesterol: 200-239 mg/dLHigh Cholesterol: greater than 239 mg/dL LDL Cholesterol Calculated 99 <100 mg/dL [facility] Comment:Desirable LDL: less than 100 mg/dLNear Optimal/Above Optimal LDL: 110- 129 mg/dLBorderline High LDL: 130-159 mg/dLHigh LDL: 160-189 mg/dLVery High LDL: greater than or equal to 190 mg/dL HDL Cholesterol 47 >40 mg/dL [facility] Comment:Desirable HDL: great er than 40 mg/dL Note: This HDL assay may give artificially low results in patients with liver disease. Blood Venous blood specimen / Unknown 11/17/2024 12:40 PM EDT 11/17/2024 1:32 PM EDT Casie Angulo DO LAB BLOOD ORDERABLES Final R esult [facility] [address] [place] [phone] * Hm Pap Smear (04/14/2023) Pathologist [facility] [place] Pap Negative for intraephithelial lesion or malignancy Negative for intraephithelial lesion or malignancy, Other HPV Not Detected Undetected, Indeterminate, Quantitative, Not Detected Historical Provider HEALTH MAINTENANCE Final Result * ALBUMIN, RANDOM URINE W/CREATININE (06/28/2022 1:38 PM EDT) Pathologist [facility] [place] Microalbumin Urine 0.3 See Note: mg/dL [facility] Comment: Reference Range: Reference Range Not established Microalb/Creat Ratio 2 <30 mcg/mg creat [facility] Comment: The ADA defines abnormalities in albumin excretion as follows: Albuminuria Category Result (mcg/mg creatinine) Normal to Mildly increased <30 Moderately increased 30-299 Severely increased > OR = 300 The ADA recommends that at least two [...] Most Recently Relevant to Health Maintenance [place] [address] [place] [address] DENTAL - HSN FULL (MEDICAID) Care Teams National Sales Director Relationship Specialty Start Date End Date Casie Angulo DO [address] [place] [phone] PCP - General Family Medicine 08/25/18
--- OUTSIDE RECORDS SUMMARY | 2025-05-07 12:25 | XMS_ITS | Encounter Summary ---
Author Organization [employer] Address [address] [place] [address] 7t [place] [address] Care Team Providers Care Correctional Case Records Supervisor Name Role Phone Casie Angulo DO Primary Care Provider + [phone] Antoinette Liu PharmD Unavailable [phone] Reason for Visit * Reason Onset Date Comments Nurse Triage 07/28/2023 Encounter Details Date Type Department Care Team ([facility] st Contact Info) Description 07/28/2023 Telephone [facility] MED[facility] [address] [place], [place] [phone] Casie Angulo DO [address] [place] [address] Nurse Triage Social History Tobacco Use Types [...] Component 7(12/31/2024 10:04 AM EDT) No Alvin Cladera, PharmD Record your blood sugar as directed Result Component No Antoinette Liu PharmD Note: Encouraged patient to increase frequency of SMBG monitoring to guide tx modification. documented as of this encounter Visit Diagnoses Not on filedocumented in this encounter Additional Health Concerns Assessment Noted Time PHQ-9 Depression Total Score: 0 12/19/19 23 10:40 AM EDT documented as of this encounter Care Teams Correctional Case Records Supervisor Relationship Specialty Start Date End Date Casie Angulo DO [address] [place] [id number] PCP - General Family Medicine 1/1/19 Antoinette Liu, Torri [address] [place] [address] Pharmacist Internal Medicine 05/01/23 01/03/25 documented as of this encounter
--- OUTSIDE RECORDS SUMMARY | 2025-05-07 12:25 | XMS_ITS | Encounter Summary ---
Author Organization [employer] Address [address] [place] [address] 7t [place] [address] Care Team Providers Care Clinical Resource Director Name Role Phone Caise Angulo DO Primary Care Provider + [phone] Alvin Caldera PharmD Unavailable Unavail able Antoinette Liu PharmD Unavailable [phone] Reason for Visit * Reason Comments Med Refill Encounter Details Date Type Department Care Team ([facility] st Contact Info) Description 02/06/2023 Refill [facility] MEDICINE [address] [place] [address] Casie Angulo DO 230 [place] [address] Social History Tobacco Use Types Packs/Day Years [...] 10:04 AM EDT) No Alvin Caldera, PharmD documented as of this encounter Visit Diagnoses Not on filedocumented in this encounter Additional Health Concerns Assessment Noted Time PHQ-9 Depression Total Score: 0 12/19/19 10:40 AM EDT documented as of this encounter Care Teams Clinical Resource Director Relationship Specialty Start Date End Date Casie Angulo DO [address] [place] [address] PCP - General Family Medicine 08/25/18 Alvin Caldera, PharmD [address] [place] [address] Pharmacist Internal Medicine 12/10/22 04/30/23 Antoinette Liu PharmD [address] [place] [address] Pharmacist Internal Medicine 05/01/23 01/03/25 documented as of this encounter
[2025-05-07 12:28] LABS: MANUAL DIFF FLAG NO
[2025-05-07 12:34] LABS: Hematocrit 35.8 % (37.0-47.0); Hemoglobin 12.4 g/dl (12.0-16.0); Imm Gran Abs Auto 0.03 X10*3/uL (0.00-0.03); Imm Gran Pct Auto 0.3 % (0.0-0.4); Lymphocytes Absolute Auto 3.4 X10*3/uL (1.2-4.9); Mean Corpuscular HGB Conc 34.6 g/dl (31.0-35.0); Mean Corpuscular Hemoglobin 31.2 pg (27.0-33.0); Mean Corpuscular Volume 89.9 fL (80.0-98.0); NRBC Abs Auto 0.000 X10*3/uL (0.0-0.012); NRBC Pct Auto 0.0 /100WBC (0.0-0.2); Platelet Count 365 X10*3/uL (160-400); Red Blood Count 3.98 X10*6/uL (4.20-5.50); White Blood Count 8.7 X10*3/uL (4.8-10.8)
[2025-05-07 12:58] LABS: Alanine Aminotransferase 29 U/L (0-31); Albumin Level 4.4 g/dL (3.5-5.0); Alkaline Phosphatase 81 U/L (39-117); Anion Gap 12 (12-20); Aspartate Amino Transferase 22 U/L (5-31); Blood Urea Nitrogen 17 mg/dL (9-16); Calcium 9.0 mg/dL (8.4-10.2); Carbon Dioxide 25 mmol/L (22-29); Chloride 107 mmol/L (96-108); Creatinine Clr Calc Pharmacy 146.6; Estimated Glomerular Filt Rate > 60; Magnesium 2.0 mg/dL (1.6-2.6); Potassium 4.0 mmol/L (3.3-5.1); Sodium 140 mmol/L (135-145); Total Protein 7.2 g/dL (6.5-8.0)
[2025-05-07 13:33] VITALS: BP 111/60; PULSE 69; RESP 18; O2SAT 96
[2025-05-07 14:55] VITALS: BP 111/60; PULSE 69; RESP 18; TEMP 36.6; O2SAT 96
== END 2025-05-07 14:56 | disposition home or self-care (01) ==
PROVIDERS: Physician Assistant Medical; Emergency Provider Emergency Medicine; PCP Family Medicine
DX: G62.9 Polyneuropathy, unspecified (principal); M79.671 Pain in right foot; E11.9 Type 2 diabetes mellitus without complications; Z79.899 Other long term (current) drug therapy
CPT/HCPCS: 36415; 73630; 80053; 83735; 84443; 85025; 93005; 99283; 99284

== ENCOUNTER → 2025-05-07 12:14 | Outpatient (BNV) | payer OTHER, SELFPAY | PROVIDERS: Emergency Provider Emergency Medicine; PCP Family Medicine; Visit Provider Internal Medicine Cardiovascular Disease | DX: R07.9 Chest pain, unspecified (principal) | CPT/HCPCS: 93010 ==

== ENCOUNTER → 2025-05-07 13:27 | Outpatient (BNV) | payer OTHER, SELFPAY | PROVIDERS: Emergency Provider Emergency Medicine; PCP Family Medicine; Visit Provider Radiology Diagnostic Radiology | DX: M77.41 Metatarsalgia, right foot (principal) | CPT/HCPCS: 73630 ==

== ENCOUNTER 2025-06-27 09:51 | Outpatient (AMB) | payer OTHER, SELFPAY ==
--- OUTSIDE RECORDS SUMMARY | 2025-06-16 10:00 | XMS_ITS | Encounter Summary ---
Author Organization [employer] Address [address] [facility] 7t [place] [address] Care Team Providers Care Stone Chimney Mason Name Role Phone Casie Angulo Primary Care Provider + [phone] Reason for Visit * Reason Comments Dental Pain Pt presents due to b elieving she has a cyst on the UR Molar. Pt states she noticed it about 4-5 days ago. Pain rate is about a 4. Pt is able to sleep at night. Pt feels area throbbing and the cheek as well. Malu Shirley Encounter Details Date Type Department Care Team (Late st Contact Info) Description 06/16/2025 11:00 AM EDT Office Visit [facility]ULT D[facility] [address] [place] [address] Raul Chaidez DDS [address] [place] [address] Social History Tobacco Use Types Packs/Day Years Used Date Smoking Tobacco: Every Day Cigarettes Passive Smoke Exposure: Current Smokeless Tobacco: Never Alcohol Use Standard Drinks/Week [...] as of this encounter Progress Notes * Raul Chaidez DDS - 06/16/2025 11:00 AM EDT Dental procedures in this visit D7140 - EXTRACTION, ERUPTED TOOTH OR EXPOSED ROOT (ELEVATION/FORCEPS REMOVAL) 4 (Completed) Service provider: Raul Chaidez DDS Billing provider: Adrián Stephenson DDS [id number] - CASE PRESENTATION, DETAILED AND EXTENSIVE TREATMENT PLANNING (Completed) Service provider: Raul Chaidez DDS Billing provider: Adrián Stephenson DDS D0270 - BITEWING - SINGLE RADIOGRAPHIC IMAGE (Completed) Service provider: Raul Chaidez DDS Billing provider: Adrián Stephenson DDS D0220 - INTRAORAL - PERIAPICAL FIRST RADIOGRAPHIC IMAGE 4 (Completed) Service provider: Raul Chaidez DDS Billing provider: Adrián Stephenson DDS D0140 - LIMITED ORAL EVALUATION - PROBLEM FOCUSED 4 (Completed) Service provider: Raul Chaidez DDS Billing provider: Adrián Stephenson DDS Patient ID: Casie Maki is a 40 y.o. female. Time Out: Date: 06/16/2025 Location: [facility] Tooth: #4 Procedure: Extraction Verified the above with patient, endodontic assistant, and provider. Confirmed via patient's chart, intraorally and by radiographs. Materials Engineer: not applicable Simple Extraction of # [address] done [address] [place] by Dr[address] Raul Chaidez DDS Risk, benefits, and alternatives discussed with the patient. CONSENT FORM INITIALED & SIGNED BY THE PATIENT AND COUNTERSIGNED BY Dr. Raul Chaidez DDS Medical history: Reviewed in EHR Vitals: There were no vitals taken for this visit. Allergies: Reviewed in EHR Medications: Reviewed in EHR - LA: 20% topical benzocaine; local infiltration with 1 carpule 4% septocaine/articaine 1:100,000 epinephrine - Gingival fibers using periosteal elevator. - Tooth luxated using straight elevator. - Tooth extracted usin - Curettage done. - Area checked for sharp bony edges / filing of sharp bony edges done. - Irrigation done using Periogard. - Sutures placed: no - Hemostasis achieved before dismissal. Patient comfortable to walk. - Gauze pack placed. - post op instructions (written + verbal), extra pack of gauze given. - Rx: Augmentin (875 mg amoxicillin + 125 clavulanic acid) BID / 7 days Acetaminophen 500 mg QID / 7 days Ibuprofen 600 mg QID / 7 days Patient satisfied, left in stable condition NV: Post Surgical Eval Provider: Dr. Raul Chaidez DDS Usability Strategist: Malu Dooley Supervising Dentist: Dr. Stephenson * Adrián Stephenson DDS - 06/16/2025 11:00 AM EDT Reviewed and signed. documented in this encounter Plan of Treatment Upcoming Encounters Date Type Department Care Team (Late st Contact Info) Description 06/29/2025 11:00 AM EST Office Visit [facility] MEDICINE [address] [place] [address] Casie Angulo DO [address] [place] [address] documented as of this encounter Goals Goal Patient Goal Type Associated Problems Recent Progress Patient-Stated? Author Hemoglobin A1c < 7 Result Component 7(12/31/2024 10:04 AM EDT) No Alvin Caldera PharmD Record your blood sugar as directed Result Component No Antoinette Liu PharmD Note: Encouraged patient to increase frequency of SMBG monitoring to guide tx modification. documented as of this encounter Procedures Procedure Name Priority Date/Time Associated Diagnosis Comments 4 LIMITED ORAL EVALUATION - PROBLEM FOCUSED Routine 06/16/2025 11:00 AM EDT 4 INTRAORAL - PERIAPICAL FIRST RADIOGRAPHIC IMAGE Routine 06/16/2025 11:00 AM EDT 4 EXTRACTION, ERUPTED TOOTH OR EXPOSED ROOT (ELEVATION/FORCEPS REMOVAL) Routine 06/16/2025 11:00 AM EDT CASE PRESENTATION, DETAILED AND EXTENSIVE TREATMENT PLANNING Routine 06/16/2025 11:00 AM EDT BITEWING - SINGLE RADIOGRAPHIC IMAGE Routine 06/16/2025 11:00 AM EDT documented in this encounter Visit Diagnoses Not on filedocumented in this encounter Additional Health Concerns Assessment Noted Time PHQ-9 Depression Total Score: 5 11/18/19 25 1:07 PM EDT documented as of this encounter Care Teams Stone Chimney Mason Relationship Specialty Start Date End Date Casie Angulo DO [address] [place] [address] PCP - General Family Medicine 08/25/18 documented as of this encounter
--- NOTE | 2025-06-27 09:52 | MHC.OFFVIS ---
Vital Signs 06/27/25 10:00 Height 5 ft 7 in Weight 219 lb BMI 34.3 BP 114/68 Blood Pressure Location Rt brachial Position Sitting Pulse 82 Pulse Source Pulse Oximeter Pulse Oximetry (%) 97 Oxygen Delivery Method Room Air Intake Visit Reasons: 6m Intake Note: ESTABLISHED PATIENT for mgmt of CIC + IBS mgmt. CC; C.O. GERD despite current therapy. Pt was taking omeprazole 20 mg but did not find any significant changes with or without the medication. She has since stopped taking it. Pt does need refills of fiber and linzess and states that these meds are working well for her still. 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 Increase fluid intake and activity to promote better bowel tele. Increase fiber intake. Patient will continue avoiding dietary triggers and late effects. Staying upright for min to 3 hours after meals discussed with patient. Discussed with patient the importance of following a low FODMAP diet. Patient will follow-up in 6 months, sooner on as needed basis. She is agreeable to this plan and verbalizes understanding of instructions. She was given the opportunity to ask questions and all questions answered. TODAY'S VISIT Patient is here today for follow-up. Patient reports that she is doing better moving her bowels. Bowel movements every 2-3 days with Linzess and stool softeners. Patient is also taking fiber daily. Patient denies melena, hematochezia. Patient however reports acid reflux has not been controlled. Patient is currently on Ozempic, doing better than when she was on Trulicity or Mounjaro. Currently she is taking omeprazole 20 mg for reflux, however patient reports that she is having epigastric pain no matter what she eats. Patient reports that she is eating small amounts. Patient denies nausea or vomiting. Patient denies dyspepsia, dysphagia or odynophagia. Postprandial abdominal bloating occasionally. [facility] Medical History Diabetes Anal pain Constipation Hemorrhoids with complication Pelvic varices Surgical History (Updated 06/27/25 @ 09:58 by GRANT Hankins) H/O tubal ligation History of hemorrhoidectomy Family History Maternal Aunt Breast cancer in female Mother HTN (hypertension) Social History Alcohol intake: former Patient Tobacco Use Status: Current everyday Tobacco user Tobacco use type: Cigarette Cigarette Packs Per Day: 0.5 Cigarettes Per Day: 10.0 Years Smoked: 14 Female Reproductive History Menstrual Age of Menarche: 10 Review of Systems Const Denies weight gain and Denies weight loss ENT Reports no additional complaints, Denies dysphagia and Denies odynophagia Card Reports no additional complaints Resp Reports no additional complaints GI Reports abdominal pain (Epigastric), Denies belching, Denies melena, Reports bloating, Denies change in bowel habits, Reports constipation, Denies dysphagia, Denies excessive flatus, Denies dyspepsia, Reports heartburn, Denies diarrhea, Denies loose stools, Denies nausea, Denies odynophagia and Denies vomiting Reports no additional complaints Musc Reports no additional complaints Neuro Reports no additional complaints Psych Reports no additional complaints Endo Reports no additional complaints Physical Exam Vital Signs: Last Vital Signs Pulse 82 06/27/25 10:00 BP 114/68 06/27/25 10:00 Pulse Ox 97 06/27/25 10:00 Oxygen Delivery Method Room Air 06/27/25 10:00 BMI result Body Mass Index 34.3 Const General: healthy appearing and no acute distress Nutritional Appearance: obese Orientation/consciousness: patient oriented x3 Resp Effort & Inspection: normal respiratory effort, able to speak in complete sentences, no tracheal deviation and symmetric chest movement Auscultation: clear to auscultation bilaterally Cardio Rate: regular rate GI Inspection: Yes normal to inspection, No distended and Yes obesity Palpation (GI): Soft to palpation, not firm, nontender and No hepatosplenomegaly present Auscultation: normal bowel sounds General: Yes no CVA tenderness Back/Spine/Pelvis Back: no CVA tenderness Skin General skin exam: elasticity normal, turgor normal and dry skin Neuro General: patient oriented x3 Psych Appearance: grossly normal Mental Status: mental status grossly normal Assessment & Plan Assessment & Plan (1) Constipation: Code(s): K59.00 - Constipation, unspecified Category: Medical Qualifiers: Constipation type: chronic idiopathic constipation Qualified Code(s): K59.04 - Chronic idiopathic constipation (2) Hemorrhoids with complication: Code(s): K64.8 - Other hemorrhoids Category: Medical (3) Rectal Hemorrhage: Code(s): K62.5 - Hemorrhage of anus and rectum (4) GERD (gastroesophageal reflux disease): Code(s): K21.9 - Gastro-esophageal reflux disease without esophagitis Qualifiers: Esophagitis presence: esophagitis presence not specified Qualified Code(s): K21.9 - Gastro-esophageal reflux disease without esophagitis (5) Postprandial epigastric pain: Code(s): R10.13 - Epigastric pain Plan Patient will stop omeprazole and start taking Nexium. Avoid dietary triggers only at snacking. Staying upright for minimum 3 hours after meals discussed with patient. Patient will continue taking Linzess. Fiber daily. Patient was encouraged to increase fluid intake and activity to promote bowel motility. The. Follow-up in the office in 4 months. Patient was encouraged to call us if she will have any GI concerning symptoms. She is agreeable to this plan and verbalizes understanding of instructions. She was given the opportunity to ask questions and all questions answered. Thank you for allowing me to participate in her care Medications: New methylcellulose (laxative) (Citrucel) take it with full glass of water 500 mg PO DAILY 90 tabs 2RF K59.00 - Constipation, unspecified esomeprazole magnesium (Nexium) 40 mg PO DAILY 30 caps 3RF K21.9 - Gastro-esophageal reflux disease without esophagitis Discontinued omeprazole Discontinued Reason: Doctor's Order 20 mg PO DAILY 4 weeks 28 caps 0RF Coding Level of Care Code Est Pt Level 4 (59128) Complex EM visit Add On G2211 Diagnoses Chronic idiopathic constipation K59.04 Constipation type: chronic idiopathic constipation Hemorrhoids with complication K64.8 Rectal Hemorrhage K62.5 Gastroesophageal reflux disease, unspecified whether esophagitis present K21.9 Esophagitis presence: esophagitis presence not specified Postprandial epigastric pain R10.13 Time Spent (min) 35 Comment 25 minutes spent with patient and additional 10 minutes spent reviewing her records
[2025-06-27 10:00] VITALS: BP 114/68; PULSE 82; O2SAT 97; BMI 34.3
--- OUTSIDE RECORDS SUMMARY | 2025-06-27 11:29 | XMS_ITS | Encounter Summary ---
Author Organization [employer] Address [address] [facility] 7t [place] [address] Care Team Providers Care Quarry Equipment Operator Name Role Phone Casie Angulo DO Primary Care Provider + [phone] Reason for Visit * Reason Onset Date Comments Recall Appointment 06/23/2025 Encounter Details Date Type Department Care Team ([facility] st Contact Info) Description 06/23/2025 Telephone [facility] MEDICINE [address] [place], [place] [phone] Casie Angulo DO [address] [place] [address] Recall Appointment Social History Tobacco Use Types Packs/Day Years [...] encounter Miscellaneous Notes * Telephone Encounter - Eunice Bell MA - 06/23/2025 11:33 AM EDT Telephone call to patient to schedule the following recall: Visit type: Office visit Appointment notes: DM Patient agree to appointment on 06/29/2025 at 11:00 AM with Alvina. documented in this encounter Plan of Treatment Upcoming Encounters Date Type Department Care Team (Late st Contact Info) Description 06/29/2025 11:00 AM EST Office Visit [facility] MEDICINE [address] [place] [address] Casie Angulo DO [address] [place] [address] documented as of this encounter Goals Goal [...] documented as of this encounter Care Teams Quarry Equipment Operator Relationship Specialty Start Date End Date Casie Angulo DO [address] [place] [address] PCP - General Family Medicine 08/25/18 documented as of this encounter
--- OUTSIDE RECORDS SUMMARY | 2025-06-27 11:29 | XMS_ITS | Encounter Summary ---
Author Organization [employer] Address [address] [place] [address] 7t [place] [address] Care Team Providers Care Spring Former Hand Name Role Phone Casie Angulo DO Primary Care Provider + [phone] Alvin Caldera PharmD Unavailable Unavail able Antoinette Liu PharmD Unavailable [phone] Reason for Visit * Reason Comments Med Refill Encounter Details Date Type Department Care Team (Late Contact Info) Description 10/23/2022 Refill [facility] [address] [place] [address] Casie Angulo DO [address] [place] [address] Muscle spasm Social History Tobacco Use Types [...] Description 06/29/2025 11:00 AM EST Office Visit [facility] MEDICINE [address] [place] [address] Casie Angulo DO [address] [place] [address] documented as of this encounter Visit Diagnoses Diagnosis Muscle spasm Spasm of muscle documented in this encounter Care Teams Spring Former Hand Relationship Specialty Start Date End Date Mitz[place] [address] PCP - General Family Medicine 08/25/18 Alvin Caldera, BriandaD [address] [place] [phone] Pharmacist Internal Medicine 12/10/22 04/30/23 Antoinette Liu, BriandaD [address] [place] [address] Pharmacist Internal Medicine 05/01/23 01/03/25 documented as of this encounter
--- OUTSIDE RECORDS SUMMARY | 2025-06-27 11:29 | XMS_ITS | Encounter Summary ---
Author Organization [employer] Address [address] [facility] [address]t [place] [address] Care Team Providers Care Fare Register Repairer Name Role Phone Casie Angulo Primary Care Provider + [phone] Encounter Details Date Type Department Care Team (Latest Contact Info) Description 06/23/2025 Travel Social History Tobacco Use Types Packs/Day [...] Description 06/29/2025 11:00 AM EST Office Visit [facility] MEDICINE [address] [place], [place] [phone] Casie Angulo DO [address] [place] [address] documented as of this encounter Goals Goal [...] documented as of this encounter Care Teams Fare Register Repairer Relationship Specialty Start Date End Date Casie Angulo DO [address] [place] [address] PCP - General Family Medicine 08/25/18 documented as of this encounter
--- OUTSIDE RECORDS SUMMARY | 2025-06-27 11:29 | XMS_ITS | Encounter Summary ---
Author Organization [employer] Address [address] [facility] 7t [place] [address] Care Team Providers Care R&D Lab Technician Name Role Phone StellaCasie fine Primary Care Provider + [phone] Antoinette Liu PharmD Unavailable [phone] Reason for Visit * Reason Onset Date Comments unable to post insurance 11/03/2024 Encounter Details Date Type Department Care Team ([facility] st Contact Info) Description 11/03/2024 Telephone [facility] ADULT DENTAL [address] [place] [address] Nicole Lozano DDS unable to post insurance [...] post HSN insurance portal not running on [employer] * Telephone Encounter - Nancie Mccann - [...] Description 06/29/2025 11:00 AM EST Office Visit [facility] MEDICINE [address] [place] [address] Casie Angulo DO [address] [place] [address] documented as of this encounter Goals Goal Patient Goal Type Associated Problems Recent Progress Patient-Stated? Author Hemoglobin A1c < 7 Result Component 7(12/31/2024 10:04 AM EDT) No Alvin Caldera, PharmMerissa Record your blood sugar as directed Result Component No Puia, Antoinette, PharmD Note: Encouraged patient to increase frequency of SMBG monitoring to guide tx modification. documented as of this encounter Visit Diagnoses Not on filedocumented in this encounter Additional Health Concerns Assessment Noted Time PHQ-9 Depression Total Score: 8 11/19/19 24 9:38 AM EDT documented as of this encounter Care Teams R&D Lab Technician Relationship Specialty Start Date End Date Casie Angulo DO [address] [place] [address] PCP - General Family Medicine 08/25/18 Antoinette Liu PharmD [address] [place] [address] Pharmacist Internal Medicine 05/01/23 01/03/25 documented as of this encounter
--- OUTSIDE RECORDS SUMMARY | 2025-06-27 11:29 | XMS_ITS | Clinical Summary ---
Author Organization [employer] Address [address] [place] [address] 7t [place] [address] Care Team Providers Care Lead Advisor Name Role Phone Casie Angulo Primary Care Provider + [phone] Allergies No known active allergies Medications Blood [...] complication, without long-term current use of insulin ([facility]) 1 each by Other route 2 times daily. USE TWICE DAILY 100 each 4 Active glucose blood (FREESTYLE LITE) test stripIndication s:Type 2 diabetes mellitus without complication, without long-term current use of insulin (HCC) USE TO TEST TWICE A DAY 100 strip 11 4 Active UltiCare Alcohol Swabs 70 % padsIndications :Type 2 diabetes mellitus without complication, without long-term current use of insulin ([facility]) USE 1 SWAB TOPICALLY 2 TIMES EVERY [...] complication, without long-term current use of insulin (HCC) Inject 0.25 mg under the skin 1 (one) time per week. 3 mL 3 5 Active Sodium Fluoride 1.1 % creamIndication s:Dental caries [place] teeth for 2 minutes, morning and night. Spit, do not rinse. Do not eat or drink anything for 30 minutes following use. 112 g 3 5 Active amoxicillin-cla vulanate (Augmentin) 875-125 MG tablet Take 1 tablet by mouth 2 times daily for 7 days. 14 tablet 5 06/23/20 25 ibuprofen 600 MG tablet Take 1 tablet (600 mg) by mouth 3 times daily for 7 days. 21 tablet 5 06/23/20 25 acetaminophen (Tylenol) 500 MG tablet Take 1 tablet (500 mg) by mouth every 8 (eight) hours if needed for mild pain for up to 7 days. 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 [address] [place] [address] Chapincito Levon, DMD Alveolar osteitis (Primary Dx) 06/16/2025 11:00 AM EDT Office Visit [facility] [address] [place] [address] Raul Chaidez, DDS 06/07/2025 Telephone [facility] [address] [place] [address] Phuong Vivar NP 05/11/2025 1:00 PM EDT Office Visit 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 ([facility]) (Primary Dx); Neuropathy; Right foot pain 05/11/2025 Travel 05/10/2025 Travel 05/10/[address] [address] Casie Angulo DO ER Follow-up 05/07/2025 Orders Only GENERIC EXTERNAL DATA DEPARTMENT Provider, Generic External Data from Last 3 Months Immunizations Immunization Administration Dates Next Due DTaP [...] Sign Reading Time Taken Comments Blood Pressure 124/66 05/11/2025 1:04 PM EDT Pulse 65 05/11/2025 1:04 PM EDT Temperature 36.7 C (98 F) 05/11/2025 11:13 AM EDT Respiratory Rate 17 05/11/2025 11:13 AM EDT Oxygen Saturation 98% 05/11/2025 11:13 AM EDT Inhaled Oxygen Concentration - - Weight 101 kg (222 lb 9.6 oz) 05/11/2025 11:13 A M EDT Height 170.2 cm (5' 7 ) 05/11/2025 11:13 AM EDT Body Mass Index 34.86 05/11/2025 11:13 AM EDT Plan of Treatment Upcoming Encounters Date Type Department Care Team (Late st Contact Info) Description 06/29/2025 11:00 AM EST Office Visit [facility] MEDICINE [address] [place] [address] Casie Angulo DO [address] [place] [address] Health Maintenance Due Date Last Done Comments IPV Vaccines (2 of 3 - 4-dose series) 09/22/1997 08/25/1997 Family Planning (PISQ) 1998 HPV Vaccines (1 - 3-dose series) 1998 Mammogram 2023 Diabetes: Urine Protein Screening 06/28/2023 06/28/2022, 01/23/2021 Diabetes: Hemoglobin A1C 04/02/2025 025, 11/17/2024, 11/17/2024, Additional history exists COVID-19 Vaccine ( season) 2025 11/30/2021, 07/02/2021, 06/11/2021 Influenza Vaccine (#1) 2025 06/30/2019 Dental Oral Exam 11/09/2025 05/11/2025, 04/07/2024 Dental Prophylaxis 11/09/2025 05/11/2025, 04/07/2024 Depression Screening 11/17/2025 11/17/2024, 11/18/19 25 Lipid Panel 11/17/2025 11/17/2024, 08/26, 06/03/2023, Additional history exists SDOH Screening 11/17/2025 11/17/2024 Alcohol/Substance Use Screening 12/31/2025 12/31/2024 Eye Exam 02/15/2026 02/16/2024, 01/24, 02/16/2024, Additional history exists Pap Smear 04/14/2026 04/14/2023, 04/0 11/2021, 01/04/2019 Disability Screening 05/10/2026 05/10/2025 Diabetes: Foot Exam 05/11/2026 05/11/2025 Dental X-Ray: Bitewings 06/17/2026 06/16/20, 05/11/2025, 11/05/2024, Additional history exists Tobacco Screening 06/20/2026 06/20/2025 Dental X-Ray: Full Mouth 04/08/2027 04/07/2024, 02/22 [...] this topic Meningococcal Vaccine Aged Out No rcoky salty eligible based on patient's age to [...] Procedure Name Priority Date/Time Associated Diagnosis Comments CASE PRESENTATION, DETAILED AND EXTENSIVE TREATMENT PLANNING Routine 06/20/2025 9:00 AM EDT Alveolar osteitis PALLIATIVE (EMERGENCY) TREATMENT OF DENTAL PAIN - MINOR PROCEDURE Routine 06/20/2025 9:00 AM EDT Alveolar osteitis 4 LIMITED ORAL EVALUATION - PROBLEM FOCUSED Routine 06/16/2025 11:00 AM EDT 4 INTRAORAL - PERIAPICAL FIRST RADIOGRAPHIC IMAGE Routine 06/16/2025 11:00 AM EDT BITEWING - SINGLE RADIOGRAPHIC IMAGE Routine 06/16/2025 11:00 AM EDT CASE PRESENTATION, DETAILED AND EXTENSIVE TREATMENT PLANNING Routine 06/16/2025 11:00 AM EDT 4 EXTRACTION, ERUPTED TOOTH OR EXPOSED ROOT (ELEVATION/FORCEPS REMOVAL) Routine 06/16/2025 11:00 AM EDT PERIODIC ORAL EVALUATION - ESTABLISHED PATIENT Routine 05/11/2025 1:00 PM EDT Dental caries INTRAORAL - PERIAPICAL FIRST RADIOGRAPHIC IMAGE Routine 05/11/2025 1:00 PM EDT Dental caries BITEWINGS - 4 RADIOGRAPHIC IMAGES Routine 05/11/2025 1:00 PM EDT Dental caries CASE PRESENTATION, DETAILED AND EXTENSIVE TREATMENT PLANNING Routine 05/11/2025 1:00 PM EDT Dental caries ORAL HYGIENE INSTRUCTIONS Routine 05/11/2025 1:00 PM EDT Dental caries PROPHYLAXIS - ADULT Routine 05/11/2025 1 :00 PM EDT Dental caries INTRAORAL - PERIAPICAL EACH ADDITIONAL RADIOGRAPHIC IMAGE Routine 05/11/2025 1:00 PM EDT Dental caries XR FOOT 3+ VIEWS RIGHT Routine 05/07/2025 2:28 PM EDT TSH W/REFLEX TO FT4 Routine 05/07/2025 1 2:20 PM EDT MAGNESIUM Routine 05/07/2025 12:20 PM EDT COMPREHENSIVE METABOLIC PANEL Routine 05/07/2025 12:20 PM EDT CBC WITH AUTO DIFFERENTIAL Routine 05/07/2025 12:20 PM EDT POCT GLYCATED HEMOGLOBIN, TOTAL Routine 12/31/2024 10:04 AM EDT Type 2 diabetes mellitus without complication, without long-term current use of insulin (CMS/HCC) HEPATITIS C AB W/REFL TO HCV RNA, [...] Chronic allergic rhinitis RUQ pain Healthcare maintenance INTRAORAL - COMPLETE SERIES OF RADIOGRAPHIC IMAGES Routine 04/07/2024 10:00 AM EDT Gingivitis due to dental plaque with local contributing factor Dental caries Missing teeth, acquired HM PAP/HPV Routine 04/14/2023 ALBUMIN, RANDOM URINE W/CREATININE Routine 06/28/2022 1:38 PM EDT from Last 3 Months or Most Recently Relevant to Health Maintenance Results * XR Foot 3+ Views Right (05/07/2025 2:28 PM EDT) Anatomical Region Laterality Modality Lower Extremities, Foot Right Radiogra phic Imaging 05/07/2025 2:28 PM EDT Narrative 05/07/2025 2:28 PM EDT [address] [address] XRay Report Signed Patient: Casie Maki MR#: [id number] : 1985 Acct:[id number] Age/Sex: 40 / F ADM Date: 05/07/25 Loc: HO.ED Attending Dr: Ordering Physician: Timothy Panda MD Date of Service: 05/07/25 Procedure(s): XR foot RT min 3V Accession Number(s): [id number] cc: Timothy Panda MD; Casie Angulo DO Reason for Exam: Right distal tenderness plantar 3rd MTP region CLINICAL HISTORY: Right distal tenderness plantar 3rd MTP region 3 view right foot Comparison: None provided Findings: No fractures or dislocations. No significant loss of joint space, osteophytes, or erosions. No ankle effusion. No radiopaque foreign body. IMPRESSION: 1. No acute findings. If pain persists, consider MRI of the right foot. This document has been electronically signed by: Sixto Nguyen MD on 05/07/2025 14:28:09 Dictated By: Sixto Nguyen MD Signed By: <Electronically signed by Sixto Nguyen MD in OV> 05/07/25 1428 DD/ 1428 TD/TT: 05/07/25 1428 Weather Analyst: Procedure Note Donotuseinterpreter, Image - 05/07/[address] [address] XRay Report Signed Patient: Casie MakiMR#: [id number] : 1985Acct:[id number] Age/Sex: 40 / FADM Date: 05/07/25 Loc: HO.ED Attending Dr: Ordering Physician: Timothy Panda MD Date of Service: 05/07/25 Procedure(s): XR foot RT min 3V Accession Number(s): [id number] cc: Timothy Panda MD; Casie Angulo DO Reason for Exam: Right distal tenderness plantar 3rd MTP region CLINICAL HISTORY: Right distal tenderness plantar 3rd MTP region 3 view right foot Comparison: None provided Findings: No fractures or dislocations. No significant loss of joint space, osteophytes, or erosions. No ankle effusion. No radiopaque foreign body. IMPRESSION: 1. No acute findings. If pain persists, consider MRI of the right foot. This document has been electronically signed by: Sixto Nguyen MD on 05/07/2025 14:28:09 Dictated By: Sixto Nguyen MD Signed By: <Electronically signed by Sixto Nguyen MD in OV> 05/07/251427 DD/ 27 TD/TT: 05/07/251427 Weather Analyst: [facility] External Provider IMG XR PROCEDURES Edited Result - Final * TSH with Reflex to Free T4 (05/07/2025 12:20 PM EDT) TSH reflex Free T4 0.85 0.32 - 4.0 uIU/mL [facility] 05/07/2025 12:2 0 PM EDT 05/07/2025 12:27 PM EDT Generic External Data Provider LAB BLOOD ORDERAB LES Final Result [facility] [address] [place] [phone] * (ABNORMAL) CBC auto differential (05/07/2025 12:20 PM EDT) White Blood Count 8.7 4.8 - 10.8 X10*3/uL [facility] Red Blood Count 3.98(L) 4.20 - 5.50 X10*6/uL [facility] Hemoglobin 12.4 12.0 - 16.0 g/dl [facility] Hematocrit 35.8(L) 37.0 - 47.0 % [facility] Mean Corpuscular Volume 89.9 80.0 - 98.0 fL [facility] Mean Corpuscular Hemoglobin 31.2 27.0 - 33.0 pg [facility] Mean Corpuscular HGB Conc 34.6 31.0 - 35.0 g/dl [facility] Red Cell Distribution Width 12.8 11.0 - 16.0 % [facility] Platelet Count 365 160 - 400 X10*3/uL [facility] Mean Platelet Volume 8.8(L) 9.4 - 12.3 fL [facility] Neutrophils Percent Auto 52.7 45 - 73 % [facility] Imm Gran Pct Auto 0.3 0.0 - 0.4 % [facility] Lymphocytes Percent Auto 38.4 20 - 40 % [facility] Monocytes Percent Auto 6.4 2 - 11 % [facility] Eosinophils Percent Auto 1.6 0 - 4 % [facility] Basophils Percent Auto 0.6 0 - 2 % [facility] NRBC Pct Auto 0.0 0.0 - 0.2 /100WBC [facility] Neutrophils Absolute Auto 4.6 2.0 - 8.3 x10*3/uL [facility] Imm Gran Abs Auto 0.03 0.00 - 0.03 X10*3/uL [facility] Lymphocytes Absolute Auto 3.4 1.2 - 4.9 X10*3/uL [facility] Monocytes Absolute Auto 0.6 0.1 - 1.2 X10*3/uL [facility] Eosinophils Absolute Auto 0.1 0.0 - 0.4 X10*3/uL [facility] Basophils Absolute Auto 0.1 0.0 - 0.2 X10*3/uL [facility] NRBC Abs Auto 0.000 0.0 - 0.012 X10*3/uL [facility] 05/07/2025 12:2 0 PM EDT 05/07/2025 12:27 PM EDT us Generic External Data Provider LAB BLOOD ORDERAB LES Final Result Performing Organization Address City/[facility]/ZIP Co de Phone Number [facility] [address] [place] [phone] [phone] * Magnesium (05/07/2025 12:20 PM EDT) Pathologist [facility] Magnesium 2.0 1.6 - 2.6 mg/dL [facility] 05/07/2025 12:2 0 PM EDT 05/07/2025 12:27 PM EDT Generic External Data Provider LAB BLOOD ORDERAB LES Final Result Performing Organization Address [facility] Co de Phone Number [facility] [address] [place] [address] [phone] * (ABNORMAL) Comprehensive Metabolic Panel (05/07/2025 12:20 PM EDT) Pathologist [facility] Sodium 140 135 - 145 mmol/L [facility] Potassium 4.0 3.3 - 5.1 mmol/L [facility] Chloride 107 96 - 108 mmol/L [facility] Carbon Dioxide 25 22 - 29 mmol/L [facility] Anion Gap 12 12 - 20 [facility] Urea Nitrogen (BUN) 17(H) 9 - 16 mg/dL [facility] Creatinine, Serum 0.61 0.5 - 1.4 mg/dL [facility] Creatinine Clr Calc Pharmacy 146.6 [facility] Comment:Provided height and weight: 170.18 cm,100.9 kg.eGFR (calculated from the MDRD study equation) and eCrCl(calculated from the Cockcroft-Gault equation) are based ondifferent parameters and may not yield comparable results.If eCrCl result is absurd, please check patient'sheight/weight. Estimated Glomerular Filt Rate >60 [facility] Comment:Chronic Kidney Disea se: Estimated GFR < 60 mL/min/1.06y4Kubglh Kidney Disease: Estimated GFR < 15 mL/min/1.73m2 Glucose 120(H) 60 - 115 mg/dL [facility] Calcium 9.0 8.4 - 10.2 mg/dL [facility] Bilirubin, Total 0.2 0.0 - 1.0 mg/dL [facility] Aspartate Amino Transferase 22 5 - 31 U/L [facility] Alanine Aminotransferase 29 0 - 31 U/L [facility] Total Protein 7.2 6.5 - 8.0 g/dL [facility] Albumin Level 4.4 3.5 - 5.0 g/dL [facility] Alkaline Phosphatase 81 39 - 117 U/L [facility] 05/07/2025 12:2 0 PM EDT 05/07/2025 12:27 PM EDT Generic External Data Provider LAB BLOOD ORDERAB LES Final Result Performing Organization Address City/State/[facility] Co de Phone Number [facility] [address] [place] [phone] * (ABNORMAL) POCT HGB A1C (12/31/2024 10:04 AM EDT) Hemoglobin A1C 7.0(A) 4.0 - 6.0 % QC Media Lot # [id number] Lot# Expiration Date Blood 12/31/2024 10:0 4 AM EDT Casie Angulo DO POINT OF CARE TEST ENTER/ANASTASIYA T ORDERABLES Final Result * Hepatitis C Antibody with Reflex to HCV, RNA, Quantitative, Real-Time PCR (11/17/2024 12:40 PM EDT) Hepatitis C Antibody Nonreactive Nonreactive [facility] Comment:Antibodies to HCV no t detected; does not exclude early acuteHCV infection. Blood Venous blood specimen / Unknown 11/17/2024 12:40 PM EDT 11/17/2024 1:32 PM EDT Casie Angulo DO LAB BLOOD ORDERABLES Final R esult Performing Organization Address City/[facility]/ZIP Co de Phone Number [facility] [address] [place] [phone] * HIV-1/2 Antigen and Antibodies, Fourth Generation, with Reflexes (11/17/2024 12:40 PM EDT) HIV AB/AG Nonreactive Nonreactive [facility] Comment:HIV-1 p24 Ag and/or HIV-1/HIV-2 Ab not detected.A test result that is nonreactive does not exclude thepossibility of exposure to or infection with HIV-1 and/orHIV-2. Nonreactive results in this assay for individualswith prior exposure to HIV-1 and/or HIV-2 may be due toantigen and antibody levels that are below the limit ofdetection of this assay.The [employer] HIV Ag/Ab Combo assay result andsupplemental assay results should be interpreted inconjunction with the patient's clinical presentation,history and other laboratory results. If the results areinconsistent with clinical evidence, additional testing issuggested to confirm the result. Blood Venous blood specimen / Unknown 11/17/2024 12:40 PM EDT 11/17/2024 1:32 PM EDT us Casie Angulo DO LAB BLOOD ORDERABLES Final R esult Performing Organization Address [facility]/ZIP Co de Phone Number [facility] [address] [place] [phone] [phone] * Lipid Panel, Standard (11/17/2024 12:40 PM EDT) Triglycerides 81 <150 mg/dL [facility] Comment:Desirable Triglyceri de: less than 150 mg/dLBorderline High Triglyceride 150-199 mg/dLHigh Triglyceride: 200-499 mg/dLVery High Triglyceride: greater than or equal to 5OO mg/dL Cholesterol 162 <200 mg/dL [facility] Comment:Desirable Cholestero l: less than 200 mg/dLBorderline High Cholesterol: 200-239 mg/dLHigh Cholesterol: greater than 239 mg/dL LDL Cholesterol Calculated 99 <100 mg/dL [facility] Comment:Desirable LDL: less than 100 mg/dLNear Optimal/Above Optimal LDL: 110- 129 mg/dLBorderline High LDL: 130-159 mg/dLHigh LDL: 160-189 mg/dLVery High LDL: greater than or equal to 190 mg/dL HDL Cholesterol 47 >40 mg/dL [facility] Comment:Desirable HDL: great er than 40 mg/dL Note: This HDL assay may give artificially low results in patients with liver disease. Blood Venous blood specimen / Unknown 11/17/2024 12:40 PM EDT 11/17/2024 1:32 PM EDT Casie Angulo DO LAB BLOOD ORDERABLES Final R esult [facility] [address] [place] [phone] * Pap Smear (04/14/2023) Pap Negative [...] [facility] 06/28/2022 1:38 PM EDT Casie Kev DO LAB URINE ORDERABLES Final R esult CONVERTED [facility] from Last 3 Months or Most Recently Relevant to Health Maintenance Insurance [facility] FULL (MEDICAID) Care Teams Lead Advisor Relationship Specialty Start Date End Date Casie Angulo DO [address] [place] [phone] PCP - General Family Medicine 08/25/18
--- OUTSIDE RECORDS SUMMARY | 2025-06-27 11:29 | XMS_ITS | Encounter Summary ---
Author Organization [employer] Address [address] [place] [address] 7t [place] [address] Care Team Providers Care Transplant Rn Name Role Phone Casie Angulo DO Primary Care Provider + [phone] Antoinette Liu PharmD Unavailable [phone] Reason for Visit * Reason Onset Date Comments Nurse Triage 07/28/2023 Encounter Details Date Type Department Care Team ([facility] st Contact Info) Description 07/28/2023 Telephone [facility] [address] [place], [place] [phone] Casie Angulo DO [address] [place] [address] Nurse Triage Social History Tobacco Use Types [...] Description 06/29/2025 11:00 AM EST Office Visit [facility] [address] [place] [address] Casie Angulo DO [address] [place] [address] documented as of this encounter Goals Goal [...] documented as of this encounter Care Teams Transplant Rn Relationship Specialty Start Date End Date Casie Angulo DO [address] [place] [address] PCP - General Family Medicine 08/25/18 Antoinette Liu PharmD [address] [place] [address] Pharmacist Internal Medicine 05/01/23 01/03/25 documented as of this encounter
--- OUTSIDE RECORDS SUMMARY | 2025-06-27 11:29 | XMS_ITS | Encounter Summary ---
Author Organization [employer] Address [address] [place] [address] 7t [place] [address] Care Team Providers Care Street Commissioner Name Role Phone Casie Angulo DO Primary Care Provider + [phone] Alvin Caldera PharmD Unavailable Unavail able Antoinette Liu PharmD Unavailable [phone] Reason for Visit * Reason Comments Med Refill Encounter Details Date Type Department Care Team (Late st Contact Info) Description 02/06/2023 Refill [facility] [address] [place] [address] Casie Angulo DO [address] [place] [address] Social History Tobacco Use Types Packs/Day Years [...] Description 06/29/2025 11:00 AM EST Office Visit [facility] [address] [facility] [place] [address] Casie Angulo DO [address] [facility] [place] [address] documented as of this encounter Goals Goal [...] documented as of this encounter Care Teams Street Commissioner Relationship Specialty Start Date End Date Casie Angulo DO [address] [facility] [place] [address] PCP - General Family Medicine 08/25/18 Alvin Caldera, [place] [address] Pharmacist Internal Medicine 12/10/22 04/30/23 Antoinette Liu, [place] [address] Pharmacist Internal Medicine 05/01/23 01/03/25 documented as of this encounter
--- OUTSIDE RECORDS SUMMARY | 2025-06-27 11:29 | XMS_ITS | Encounter Summary ---
Author Organization [employer] Address [address] [place] [address] 7[address] [place] [address] Care Team Providers Care Hamper Maker Name Role Phone Casie Angulo DO Primary Care Provider + [phone] Alvin Caldera PharmD Unavailable Unavail able Antoinette Liu PharmD Unavailable [phone] Encounter Details Date Type Department Care Team (Late st Contact Info) Description 10/08/2022 Orders Only [facility] [address] [place] [address] Casie Pinedo LPN Social History Tobacco Use [...] Description 06/29/2025 11:00 AM EST Office Visit [facility] [address] [place] [address] Casie Angulo DO [address] [place], [place] [phone] documented as of this encounter Visit Diagnoses Not on filedocumented in this encounter Care Teams Hamper Maker Relationship Specialty Start Date End Date Casie Angulo DO [address] [place] [address] PCP - General Family Medicine 08/25/18 Alvin Caldera, PharmD [address] [place] [address] Pharmacist Internal Medicine 12/10/22 04/30/23 Antoinette Liu, BriandaD [address] [place], [place] [phone] Pharmacist Internal Medicine 05/01/23 01/03/25 documented as of this encounter
--- OUTSIDE RECORDS SUMMARY | 2025-06-27 11:29 | XMS_ITS | Encounter Summary ---
Author Organization [email or web address] Address [address] [place] [address] 7 [place] [address] Care Team Providers Care Third Miller Name Role Phone Casie Angulo DO Primary Care Provider + [phone] Alvin Caldera PharmD Unavailable Unavail able Antoinette Liu PharmD Unavailable [phone] Encounter Details Date Type Department Care Team (Late st Contact Info) Description 09/19/2022 Orders Only [facility] [address] [place] [phone] Whitney James LPN Social History Tobacco Use [...] Description 06/29/2025 11:00 AM EST Office Visit [facility] [address] [place] [phone] Casie Angulo DO [address] [place] [address] documented as of this encounter Visit Diagnoses Not on filedocumented in this encounter Care Teams Third Miller Relationship Specialty Start Date End Date Casie Angulo DO [address] [place] [address] PCP - General Family Medicine 08/25/18 Alvin Caldera, PharmD [address] [place] [address] Pharmacist Internal Medicine 12/10/22 04/30/23 Antoinette Liu, PharmD [address] [place] [address] Pharmacist Internal Medicine 05/01/23 01/03/25 documented as of this encounter
== END 2025-06-27 10:16 | disposition home or self-care (01) ==
LOC: HO.HGI 09:51
PROVIDERS: PCP Family Medicine; Visit Provider Nurse Practitioner Family
DX: K59.04 Chronic idiopathic constipation (principal); K64.8 Other hemorrhoids; K62.5 Hemorrhage of anus and rectum; K21.9 Gastro-esophageal reflux disease without esophagitis; R10.13 Epigastric pain
CPT/HCPCS: 99214

== ENCOUNTER → 2025-06-27 09:51 | Outpatient (BNVA) | payer OTHER, SELFPAY | PROVIDERS: PCP Family Medicine; Visit Provider Nurse Practitioner Family | DX: K59.04 Chronic idiopathic constipation (principal); K21.9 Gastro-esophageal reflux disease without esophagitis; K62.5 Hemorrhage of anus and rectum; K64.8 Other hemorrhoids; R10.13 Epigastric pain | CPT/HCPCS: 99212 ==

== ENCOUNTER 2025-06-29 11:40 | Outpatient (REF) | payer OTHER, SELFPAY ==
--- NOTE | ~2025-06-29 | XR_ITS ---
EXAMINATION: XR FACIAL BONES CLINICAL INFORMATION: facial pain s/p dental extraction COMPARISON: None available. TECHNIQUE: Farah' view, Tasha projection, axial and lateral views. FINDINGS: Paranasal sinuses are well pneumatized and aerated without air-fluid levels. No metallic or radiopaque foreign body. No acute cortical disruption. No lytic or blastic lesions. XR/XR facial bones min 3V IMPRESSION: No acute paranasal sinus disease. Negative exam. Electronically signed by: Issac Wilson MD 06/29/2025 01:30 PM EST
--- OUTSIDE RECORDS SUMMARY | 2025-06-29 11:00 | XMS_ITS | Encounter Summary ---
Author Organization [employer] Address [address] [place] [address] [address] [place] [address] Care Team Providers Care Panel Machine Operator Name Role Phone Casie Angulo DO Primary Care Provider + [phone] Reason for Referral * Medications - Closed Specialty Diagnoses / Procedures Referred By Blanco delgado Referred To Contact Diagnoses Type 2 diabetes mellitus without complication, without long-term current use of insulin (HCC) Casie Angulo DO [address] [place] [address] Phone: tel: fax: Referral ID Status Reason Start Date Expiration Date Visits Re quested Visits Authorized [id number] Closed 1 1 * Cardiology (Urgent) - Authorized Specialty Diagnoses / Procedures Referred By Blanco delgado Referred To Contact Cardiology Diagnoses Palpitations Procedures Holter monitor - 48 hour Casie Angulo DO [address] [place] [address] Phone: tel: fax: [address] Phone: tel: fax: Referral ID Status Reason Start Date Expiration Date V isits Requested Visits Authorized [id number] Authorized 06/29/2025 06/29/2026 1 1 * Imaging (Urgent) - Pending Review Specialty Diagnoses / Procedures Referred By Blanco t Referred To Contact Cardiology Diagnoses Palpitations Procedures Transthoracic Echo (TTE) Complete Casie Angulo DO [address] [place] [address] Phone: tel: fax: [address] Phone: tel: fax: Referral ID Status Reason Start Date Expiration Date Visits Requested Visits Authorized [id number] Pending Review Perform Procedure 06/29/2025 06/29/2026 1 1 Encounter Details Date Type Department Care Team (Latest Contact Info) Description 06/29/2025 11:00 AM EST Office Visit [facility] [address] [place] [address] Casie Angulo DO [address] [place] [address] Type 2 diabetes mellitus without complication, without long-term current use of insulin (HCC) (Primary Dx); Other hyperlipidemia; Chronic allergic rhinitis; Chronic gastroesophageal reflux disease; Chronic constipation; Pelvic congestion syndrome; Paresthesia of left arm and leg; Facial pain; Facial rash; Palpitations; Healthcare maintenance; Dietary counseling; Exercise counseling Social History Tobacco Use Types Packs/Day Years [...] Sign Reading Time Taken Comments Blood Pressure 122/78 06/29/2025 11:15 AM EST Pulse 88 06/29/2025 11:15 AM EST Temperature 36.2 C (97.1 F) 06/29/2025 11:15 AM EST Respiratory Rate 21 06/29/2025 11:15 AM EST Oxygen Saturation 97% 06/29/2025 11:15 AM EST Inhaled Oxygen Concentration - - Weight 99.8 kg (220 lb) 06/29/2025 11:15 AM EST Height 170.2 cm (5' 7 ) 06/29/2025 11:15 AM EST Body Mass Index 34.46 06/29/2025 11:15 AM EST documented in this encounter Progress Notes * Casie Kev, DO - 06/29/2025 11:00 AM EST SUBJECTIVE Casie Maki is a 40 y.o. female who presents for Office Visit. HPI She was seen in [facility] in April with foot pain which was thought to be due to neuropathy and given lyrica. She had f/u with ALEJA Vivar and was referred for MRI foot and evaluation with podiatry. Her MRI was denied. She says that she never got the referral for the foot doctor. She says that the ball on the bottom of her foot went away after a mos and doesn't need podiatry at this time. She says that the numbness in her leg has gotten better. She doesn't know if it's because she has been exercising more. She says that she did do the nerve tests. She had to r/s her appointment with neurology and will see them next mos. She had f/u with GI the other day and complained of persistent reflux and controlled constipation. Her omeprazole was changed to nexium and she was continued on fiber and linzess. She was advised to f/u in 4 mos. She had a dental extraction ~2 weeks ago and she is still with a lot of pain. She was told that shehad a dry socket and was going to take time to get better. She completed the antibiotics but hasn't noticed any improvement. She has been taking tylenol and motrin which doesn't help and wasn't given any other pain meds. She feels the pain spreading across her face and up to her head and is afraid it's affecting the nerves in her brain. No fevers. She has also been getting palpitations frequently since the extraction. She c/o facial redness every morning. She says that this has been happening for mos and lasts [id number] and then goes away. She finds herself running out of ozempic. She increased to the 0.5mg dose which is working for her.She's not eating that much with the medication and not having any side effects. She says that she saw [facility] over the summer and they told her that everything was nml. Review of Systems Constitutional: Negative for activity change, appetite change, chills, fever and unexpected weight change. Respiratory: Negative for cough and shortness of breath. Cardiovascular: Negative for chest pain, palpitations and leg swelling. Gastrointestinal: Negative for abdominal pain, diarrhea, nausea and vomiting. Neurological: Negative for weakness and headaches. Patient Active Problem List Diagnosis BMI 34.0-34.9,adult Tobacco dependence History of COVID-19 Type 2 diabetes mellitus (HCC) History of depression Hyperlipidemia Chronic constipation Irritable bowel syndrome Chronic migraine Pelvic congestion syndrome Gingivitis due to dental plaque with local contributing factor Dental caries Controlled type 2 diabetes mellitus with diabetic neuropathy ([facility]) Neuropathy Chronic gastroesophageal reflux disease No Known Allergies OBJECTIVE Visit Vitals BP 122/78 (BP Location: Left arm, Patient Position: Sitting, BP Cuff Size: Adult) Pulse 88 Temp 97.1 ??F (36.2 ??C) (Oral) Resp 21 Ht 5' 7 (1.702 m) Wt 220 lb (99.8 kg) LMP 06/13/2025 (Approximate) SpO2 97% BMI 34.46 kg/m?? OB Status Having periods Smoking Status Every Day BSA 2.17 m?? Physical Exam Constitutional: General: She is not in acute distress. Appearance: Normal appearance. Cardiovascular: Rate and Rhythm: Normal rate and regular rhythm. Heart sounds: Normal heart sounds. No murmur heard. Pulmonary: Effort: Pulmonary effort is normal. Breath sounds: Normal breath sounds. No wheezing or rhonchi. Neurological: General: No focal deficit present. Mental Status: She is alert. Psychiatric: Mood and Affect: Mood normal. Office Visit on 06/29/2025 Component Date Value Ref Range Status Glucose Blood, POC 06/29/2025 180 60 - 200 mg/dL Final QC Media Lot # 06/29/2025 [id number] Final Lot# Expiration Date 06/29/2025 [id number] Final Hemoglobin A1C 06/29/2025 6.8 (A) 4.0 - 5.7 % Final QC Media Lot # 06/29/2025 [id number] Final Lot# Expiration Date 06/29/2025 [id number] Final Assessment/Plan Diagnoses and all orders for this visit: Type 2 diabetes mellitus without complication, without long-term current use of insulin ([facility]) A1c at goal -cont ozempic weekly -cont regular BS monitoring -Cr, GFR nml Oct 2024 and urine microalbumin nml Aug 2023 -> repeat prior to next visit -s/p optho eval JAN 2024 at [facility] for annual f/u, will get copy of Eye [facility] Lasik eval -foot exam next visit* Other hyperlipidemia LDL improved Oct 2024 -she declines statin initiation -repeat lipids prior to next visit Chronic allergic rhinitis Sx controlled -cont claritin daily Chronic gastroesophageal reflux disease Uncontrolled -trial nexium as per GI -f/u with GI as scheduled, due Oct 2025 Chronic constipation With probable IBS, symptoms controlled -cont colace and fiber supplementation BID -cont linzess daily as per GI -cont dulcolax/miralax prn -colonoscopy with small internal hemorrhoids JUL 2024 -f/u with GI as scheduled, due Oct 2025 Pelvic congestion syndrome -CT abd/pelvis with L pelvic venous congestion Sep 2023 -KUB with phleboliths in the pelvis Oct 2024 -f/u with [facility] as scheduled, will get copy of recent eval Paresthesia of left arm and leg Symptoms improved -MRI brain with no acute findings, punctate white matter signal abnormality Nov 2024 -will get copy of LUE/LLE EMG/NCS -cont gabapentin 100mg TID -keep upcoming eval with neurology as scheduled -advised rtc if sx change or worsen, she agrees with plans Facial pain Persistent pain since dental extraction, likely referred pain from extraction site with possible persistent infection -referred for facial xrays -treat empirically with augmentin BID x one week -trial oxycodone for severe pain, 5 day supply given -advised schedule f/u with dental -advised rtc if symptoms change or worsen Facial rash Intermittent erythema, ? Allergic -check basic labs -check ESR, CRP, RUFINA and RF -trial zyrtec daily -consider evaluation with derm if symptoms persist Palpitations -check CBC and TFTs -referred for ECHO and Holter -encouraged decrease caffeine intake -advised stay well hydrated, encouraged regular meals -consider evaluation with derm if no improvement, she agrees with plans Healthcare maintenance -she declines flu vaccine -she declines COVID vaccine -s/p Tdap MAR 2019 -s/p PCV20 MAY 2024 -Hep B immune -pap nml/HPV negative Mar 2023 at [facility] -will get copy of most recent mammo results from [facility] as still not in chart -colonoscopy with small internal hemorrhoids JUL 2024 -STI/HIV screen negative Oct 2024 Dietary counseling Exercise counseling -encouraged [id number] Servings of fruit and vegetables each day 2 Hour limit of screen time 1 Hour of physical activity each day 0 Sugary drinks F/U with me in 4 mos or sooner prn Current Outpatient Medications: acetaminophen (Tylenol 8 Hour) 650 MG ER tablet, Take 1 tablet (650 mg) by mouth every 8 (eight) hours if needed for mild pain or moderate pain. Do not crush, chew, or split., Disp: 40 tablet, Rfl: 1 amoxicillin-clavulanate (Augmentin) 875-125 MG tablet, Take 1 tablet by mouth 2 times daily for 7 days., Disp: 14 tablet, Rfl: 0 baclofen (Lioresal) 10 MG tablet, Take 1 tablet (10 mg) by mouth if needed in the morning, at noon,and at bedtime for muscle spasms., Disp: 60 tablet, Rfl: 1 Bisacodyl EC 5 MG EC tablet, Take 10 mg by mouth at bedtime., Disp: , Rfl: Blood Glucose Monitoring Suppl (FreeStyle Lite) w/Device kit, USE TO CHECK BLOOD GLUCOSE 2 TIMES EVERY DAY, Disp: , Rfl: cetirizine (ZyrTEC) 10 MG tablet, Take 1 tablet (10 mg) by mouth Once per day., Disp: 90 tablet, Rfl: 3 cholecalciferol (Vitamin D-3) 50 MCG (2000 UT) capsule, Take 1 capsule (50 mcg) by mouth Once per day., Disp: 30 capsule, Rfl: 11 Diclofenac Sodium 1 % gel, Apply 2 g topically if needed in the morning, at noon, in the evening, and at bedtime (pain)., Disp: 150 g, Rfl: 3 dicyclomine (Bentyl) 10 MG capsule, Take 1 capsule (10 mg) by mouth if needed in the morning, at noon, in the evening, and at bedtime (abd pain)., Disp: 30 capsule, Rfl: 3 diphenhydrAMINE (BENADryl) 25 MG tablet, Take 1 tablet (25 mg) by mouth every 6 (six) hours if needed for itching., Disp: 30 tablet, Rfl: 1 docusate sodium (Colace) 100 MG capsule, Take 1 capsule (100 mg) by mouth 2 times daily., Disp: 180capsule, Rfl: 3 FreeStyle lancets, 1 each by Other route 2 times daily. USE TWICE DAILY, Disp: 100 each, Rfl: 11 gabapentin (Neurontin) 100 MG capsule, Take 1 capsule (100 mg) by mouth 3 times daily., Disp: 90 capsule, Rfl: 3 glucose blood (FREESTYLE LITE) test strip, USE TO TEST TWICE A DAY, Disp: 100 strip, Rfl: 11 ibuprofen 600 MG tablet, Take 1 tablet (600 mg) by mouth every 6 (six) hours if needed for mild pain for up to 20 doses., Disp: 20 tablet, Rfl: 0 Junel FE 1.5/30 1.5-30 MG-MCG tablet, Take 1 tablet by mouth Once per day., Disp: , Rfl: Linzess 290 MCG capsule, TAKE 1 CAPSULE (290 MCG ) BY MOUTH EVERY MORNING, Disp: , Rfl: oxyCODONE (Roxicodone) 5 MG immediate release tablet, Take 1 tablet (5 mg) by mouth if needed in the morning, at noon, and at bedtime for severe pain for up to 5 days., Disp: 15 tablet, Rfl: 0 polycarbophil (Fibercon) 625 MG tablet, Take 1 tablet (625 mg) by mouth 2 times daily., Disp: 180 tablet, Rfl: 3 polyethylene glycol, PEG, 3350 (MiraLax) 17 GM/SCOOP powder, Take 17 g by mouth Once per day., Disp: 527 g, Rfl: 3 Semaglutide,0.25 or 0.5MG/DOS, (Ozempic, 0.25 or 0.5 MG/DOSE,) 2 MG/3ML solution pen-injector, Inject 0.5 mg under the skin 1 (one) time per week., Disp: 3 mL, Rfl: 11 simethicone (Mylicon,Gas-X) 125 MG capsule, Take 1 capsule (125 mg) by mouth every 6 (six) hours ifneeded for flatulence., Disp: 30 capsule, Rfl: 3 Sodium Fluoride 1.1 % cream, [place] teeth for 2 minutes, morning and night. Spit, do not rinse. Do not eat or drink anything for 30 minutes following use., Disp: 112 g, Rfl: 3 UltiCare Alcohol Swabs 70 % pads, USE 1 SWAB TOPICALLY 2 TIMES EVERY DAY, Disp: 100 each, Rfl: 11 documented in this encounter Plan of Treatment Scheduled Orders Name Type Priority Associated Diagnoses Orde r Schedule T4, Free Lab Routine Type 2 diabetes mellitus without complication, without long-term current use of insulin (HCC) Other hyperlipidemia Chronic allergic rhinitis Chronic gastroesophageal reflux disease Chronic constipation Pelvic congestion syndrome Paresthesia of left arm and leg Healthcare maintenance Facial pain Facial rash Palpitations Expected: 06/29/2025 (Approximate), Expires: 06/29/2026 Vitamin D, 25-Hydroxy, Total, Immunoassay Lab Routine Type 2 diabetes mellitus without complication, without long-term current use of insulin (HCC) Other hyperlipidemia Chronic allergic rhinitis Chronic gastroesophageal reflux disease Chronic constipation Pelvic congestion syndrome Paresthesia of left arm and leg Healthcare maintenance Facial pain Facial rash Palpitations Expected: 06/29/2025 (Approximate), Expires: 06/29/2026 Lipid Panel, Standard Lab Routine Type 2 diabetes mellitus without complication, without long-term current use of insulin (HCC) Other hyperlipidemia Chronic allergic rhinitis Chronic gastroesophageal reflux disease Chronic constipation Pelvic congestion syndrome Paresthesia of left arm and leg Healthcare maintenance Facial pain Facial rash Palpitations Expected: 06/29/2025 (Approximate), Expires: 06/29/2026 TSH Lab Routine Type 2 diabetes mellitus without complication, without long-term current use of insulin (HCC) Other hyperlipidemia Chronic allergic rhinitis Chronic gastroesophageal reflux disease Chronic constipation Pelvic congestion syndrome Paresthesia of left arm and leg Healthcare maintenance Facial pain Facial rash Palpitations Expected: 06/29/2025 (Approximate), Expires: 06/29/2026 Hepatic Function Panel Lab Routine Type 2 diabetes mellitus without complication, without long-term current use of insulin (HCC) Other hyperlipidemia Chronic allergic rhinitis Chronic gastroesophageal reflux disease Chronic constipation Pelvic congestion syndrome Paresthesia of left arm and leg Healthcare maintenance Facial pain Facial rash Palpitations Expected: 06/29/2025 (Approximate), Expires: 06/29/2026 Hemoglobin A1c Lab Routine Type 2 diabetes mellitus without complication, without long-term current use of insulin (HCC) Other hyperlipidemia Chronic allergic rhinitis Chronic gastroesophageal reflux disease Chronic constipation Pelvic congestion syndrome Paresthesia of left arm and leg Healthcare maintenance Facial pain Facial rash Palpitations Expected: 06/29/2025 (Approximate), Expires: 06/29/2026 Basic Metabolic Panel Lab Routine Type 2 diabetes mellitus without complication, without long-term current use of insulin (HCC) Other hyperlipidemia Chronic allergic rhinitis Chronic gastroesophageal reflux disease Chronic constipation Pelvic congestion syndrome Paresthesia of left arm and leg Healthcare maintenance Facial pain Facial rash Palpitations Expected: 06/29/2025 (Approximate), Expires: 06/29/2026 CBC Lab Routine Type 2 diabetes mellitus without complication, without long-term current use of insulin (HCC) Other hyperlipidemia Chronic allergic rhinitis Chronic gastroesophageal reflux disease Chronic constipation Pelvic congestion syndrome Paresthesia of left arm and leg Healthcare maintenance Facial pain Facial rash Palpitations Expected: 06/29/2025, Expires: 06/29/2026 Albumin, Random Urine W/Creatinine Lab Routine Type 2 diabetes mellitus without complication, without long-term current use of insulin (HCC) Other hyperlipidemia Chronic allergic rhinitis Chronic gastroesophageal reflux disease Chronic constipation Pelvic congestion syndrome Paresthesia of left arm and leg Healthcare maintenance Facial pain Facial rash Palpitations Expected: 06/29/2025 (Approximate), Expires: 06/29/2026 Hepatitis B surface antigen, EIA Lab Routine Type 2 diabetes mellitus without complication, without long-term current use of insulin (HCC) Other hyperlipidemia Chronic allergic rhinitis Chronic gastroesophageal reflux disease Chronic constipation Pelvic congestion syndrome Paresthesia of left arm and leg Healthcare maintenance Facial pain Facial rash Palpitations Expected: 06/29/2025 (Approximate), Expires: 06/29/2026 Chlamydia/N. Gonorrhoeae RNA, TMA, Urogenitial Microbiology Routine Type 2 diabetes mellitus without complication, without long-term current use of insulin (HCC) Other hyperlipidemia Chronic allergic rhinitis Chronic gastroesophageal reflux disease Chronic constipation Pelvic congestion syndrome Paresthesia of left arm and leg Healthcare maintenance Facial pain Facial rash Palpitations Ordered: 06/29/2025 HIV-1/2 Antigen and Antibodies, Fourth Generation, with Reflexes Lab Routine Type 2 diabetes mellitus without complication, without long-term current use of insulin (HCC) Other hyperlipidemia Chronic allergic rhinitis Chronic gastroesophageal reflux disease Chronic constipation Pelvic congestion syndrome Paresthesia of left arm and leg Healthcare maintenance Facial pain Facial rash Palpitations Expected: 06/29/2025 (Approximate), Expires: 06/29/2026 Hepatitis C Antibody with Reflex to HCV, RNA, Quantitative, Real-Time PCR Lab Routine Type 2 diabetes mellitus without complication, without long-term current use of insulin (HCC) Other hyperlipidemia Chronic allergic rhinitis Chronic gastroesophageal reflux disease Chronic constipation Pelvic congestion syndrome Paresthesia of left arm and leg Healthcare maintenance Facial pain Facial rash Palpitations Expected: 06/29/2025, Expires: 06/29/2026 RPR (Monitor) with Reflex to Titer Lab Routine Type 2 diabetes mellitus without complication, without long-term current use of insulin (HCC) Other hyperlipidemia Chronic allergic rhinitis Chronic gastroesophageal reflux disease Chronic constipation Pelvic congestion syndrome Paresthesia of left arm and leg Healthcare maintenance Facial pain Facial rash Palpitations Expected: 06/29/2025, Expires: 06/29/2026 Hepatitis B Surface Antibody, Qualitative Lab Routine Type 2 diabetes mellitus without complication, without long-term current use of insulin ([facility]) Other hyperlipidemia Chronic allergic rhinitis Chronic gastroesophageal reflux disease Chronic constipation Pelvic congestion syndrome Paresthesia of left arm and leg Healthcare maintenance Facial pain Facial rash Palpitations Expected: 06/29/2025 (Approximate), Expires: 06/29/2026 RUFINA Screen,IFA, with Reflex to Titer and Pattern Lab Routine Type 2 diabetes mellitus without complication, without long-term current use of insulin ([facility]) Other hyperlipidemia Chronic allergic rhinitis Chronic gastroesophageal reflux disease Chronic constipation Pelvic congestion syndrome Paresthesia of left arm and leg Healthcare maintenance Facial pain Facial rash Palpitations Expected: 06/29/2025 (Approximate), Expires: 06/29/2026 Lyme Disease Ab with Reflex to Blot (IgG, IgM) Lab Routine Type 2 diabetes mellitus without complication, without long-term current use of insulin ([facility]) Other hyperlipidemia Chronic allergic rhinitis Chronic gastroesophageal reflux disease Chronic constipation Pelvic congestion syndrome Paresthesia of left arm and leg Healthcare maintenance Facial pain Facial rash Palpitations Expected: 06/29/2025, Expires: 06/29/2026 Rheumatoid Factor Lab Routine Type 2 diabetes mellitus without complication, without long-term current use of insulin ([facility]) Other hyperlipidemia Chronic allergic rhinitis Chronic gastroesophageal reflux disease Chronic constipation Pelvic congestion syndrome Paresthesia of left arm and leg Healthcare maintenance Facial pain Facial rash Palpitations Expected: 06/29/2025, Expires: 06/29/2026 Sed Rate by Modified Westergren Lab Routine Type 2 diabetes mellitus without complication, without long-term current use of insulin ([facility]) Other hyperlipidemia Chronic allergic rhinitis Chronic gastroesophageal reflux disease Chronic constipation Pelvic congestion syndrome Paresthesia of left arm and leg Healthcare maintenance Facial pain Facial rash Palpitations Expected: 06/29/2025, Expires: 06/29/2026 C-reactive Protein Lab Routine Type 2 diabetes mellitus without complication, without long-term current use of insulin ([facility]) Other hyperlipidemia Chronic allergic rhinitis Chronic gastroesophageal reflux disease Chronic constipation Pelvic congestion syndrome Paresthesia of left arm and leg Healthcare maintenance Facial pain Facial rash Palpitations Expected: 06/29/2025 (Approximate), Expires: 06/29/2026 Transthoracic Echo (TTE) Complete Echocardiography Urgent Palpitations Expected: 06/29/2025 (Approximate), Expires: 06/29/2027 Holter monitor - 48 hour Cardiac Services Urgent Palpitations Expected: 06/29/2025 (Approximate), Expires: 06/29/2027 documented as of this encounter Goals Goal Patient Goal Type Associated Problems Recent Progress Patient-Stated? Author Hemoglobin A1c < 7 Result Component 6.8( 11:19 AM EST) No Alvin Caldera PharmD Record your blood sugar as directed Result Component No Antoinette Liu PharmD Note: Encouraged patient to increase frequency of SMBG monitoring to guide tx modification. documented as of this encounter Procedures Procedure Name Priority Date/Time Associated Diagnosis Comments XR FACIAL BONES 3+ VIEWS Routine 06/29/2025 12:10 PM EST Facial pain POCT GLYCATED HEMOGLOBIN, TOTAL Routine 06/29/2025 11:19 AM EST Type 2 diabetes mellitus without complication, without long-term current use of insulin (HCC) POCT GLUCOSE Routine 06/29/2025 11:18 AM EST Type 2 diabetes mellitus without complication, without long-term current use of insulin (HCC) documented in this encounter Results * XR Facial Bones 3+ Views (06/29/2025 12:10 PM EST) Anatomical Region Laterality Modality Head, Neck, Facial bones Radiogr aphic Imaging 06/29/2025 12:1 0 PM EST Narrative 06/29/2025 1:33 [place] [address] XRay Report Signed Patient: Casie Maki MR#: [id number] : 1985 Acct:[id number] Age/Sex: 40 / F ADM Date: 06/29/25 Loc: HO.HHCX Attending Dr: Casie Angulo DO Ordering Physician: Casie Angulo DO Date of Service: 06/29/25 Procedure(s): XR facial bones min 3V Accession Number(s): [id number] cc: Casie Angulo DO Reason for Exam: facial pain s/p dental extraction EXAMINATION: XR FACIAL BONES CLINICAL INFORMATION: facial pain s/p dental extraction COMPARISON: None available. TECHNIQUE: Farah' view, Tasha projection, axial and lateral views. FINDINGS: Paranasal sinuses are well pneumatized and aerated without air-fluid levels. No metallic or radiopaque foreign body. No acute cortical disruption. No lytic or blastic lesions. XR/XR facial bones min 3V IMPRESSION: No acute paranasal sinus disease. Negative exam. Electronically signed by: Issac Wilson MD 06/29/2025 01:30 PM EST RP Dictated By: Issac Mancini MD Signed By: <Electronically signed by Issac Sy MD in OV> 06/29/25 1330 DD/ 1210 TD/TT: 06/29/25 1220 Desktop Operator: Procedure Note Donotuseinterpreter, Image - 06/29/2025 [place] [address] XRay Report Signed Patient: Casie MakiMR#: [id number] : 1985Acct:[id number] Age/Sex: 40 / FADM Date: 06/29/25 Loc: HO.HHCX Attending Dr: Casie Angulo DO Ordering Physician: Casie Angulo DO Date of Service: 06/29/25 Procedure(s): XR facial bones min 3V Accession Number(s): [id number] cc: Casie Angulo DO Reason for Exam: facial pain s/p dental extraction EXAMINATION: XR FACIAL BONES CLINICAL INFORMATION: facial pain s/p dental extraction COMPARISON: None available. TECHNIQUE: Farah' view, Tasha projection, axial and lateral views. FINDINGS: Paranasal sinuses are well pneumatized and aerated without air-fluid levels. No metallic or radiopaque foreign body. No acute cortical disruption. No lytic or blastic lesions. XR/XR facial bones min 3V IMPRESSION: No acute paranasal sinus disease. Negative exam. Electronically signed by: Issac Wilson MD 06/29/2025 01:30 PM EST RP Dictated By: Issac Mancini MD Signed By: <Electronically signed by Issac Sy MDin OV> 06/29/25 1330 DD/ 1210 TD/TT: 06/29/25 1220 Desktop Operator: Casie Angulo DO IMG XR PROCEDURES Final Resu lt * (ABNORMAL) POCT Hgb A1c (06/29/2025 11:19 AM EST) Hemoglobin A1C 6.8(A) 4.0 - 5.7 % QC Media Lot # [id number] Lot# Expiration Date 5,027 Blood 06/29/2025 11:1 9 AM EST Casie Angulo DO POINT OF CARE TEST ENTER/ANASTASIYA T ORDERABLES Final Result * POCT Glucose (06/29/2025 11:18 AM EST) Glucose Blood, POC 180 60 - 200 mg/dL QC Media Lot # [id number] Lot# Expiration Date 3,,026 Blood Capillary blood specimen / Unknown 06/29/2025 11:18 AM EST Casie Angulo DO POINT OF CARE TEST ENTER/ANASTASIYA T ORDERABLES Final Result documented in this encounter Visit Diagnoses Diagnosis Type 2 diabetes mellitus without complication, without long-term current use of insulin (HCC)- Primary Other hyperlipidemia Chronic allergic rhinitis Chronic gastroesophageal reflux disease Chronic constipation Unspecified constipation Pelvic congestion syndrome Paresthesia of left arm and leg Facial pain Headache Facial rash Palpitations Healthcare maintenance Dietary counseling Dietary surveillance and counseling Exercise counseling documented in this encounter Additional Health Concerns Assessment Noted Time PHQ-9 Depression Total Score: 5 11/18/19 25 1:07 PM EDT documented as of this encounter Care Teams Panel Machine Operator Relationship Specialty Start Date End Date Casie Angulo DO [address] [place] [phone] PCP - General Family Medicine 08/25/18 documented as of this encounter
--- OUTSIDE RECORDS SUMMARY | 2025-06-29 14:22 | XMS_ITS | Clinical Summary ---
Author Organization [employer] Address [address] [place] [address] [address] [place] [address] Care Team Providers Care Sprinkler Repair Technician Name Role Phone JefersonCasie martins Primary Care Provider + [phone] Allergies No known active allergies Medications Blood Glucose Monitoring Suppl (FreeStyle Lite) w/Device kit USE TO CHECK BLOOD GLUCOSE 2 TIMES EVERY DAY 06/19/20 22 Active Linzess 290 MCG capsule TAKE 1 CAPSULE (290 MCG ) BY MOUTH EVERY MORNING 11/27/19 23 Active Bisacodyl EC 5 MG EC tablet Take 10 mg by mouth at bedtime. 04/09/20 23 Active FreeStyle lancetsIndicat ions:Type 2 diabetes mellitus without complication, without long-term current use of insulin (HCC) 1 each by Other route 2 times daily. USE TWICE DAILY 100 each 03/12/20 24 Active glucose blood (FREESTYLE LITE) test stripIndicatio ns:Type 2 diabetes mellitus without complication, without long-term current use of insulin (HCC) USE TO TEST TWICE A DAY 100 strip 03/12/20 24 Active UltiCare Alcohol Swabs 70 % padsIndication s:Type 2 diabetes mellitus without complication, without long-term current use of insulin (HCC) USE 1 SWAB TOPICALLY 2 TIMES EVERY DAY 100 each 03/12/20 24 Active cholecalcifero l (Vitamin D-3) 50 MCG (1999 UT) capsuleIndicat ions:Vitamin D deficiency Take 1 capsule (50 mcg) by mouth Once per day. 30 capsule 11 03/15/20 24 Active polycarbophil (Fibercon) 625 MG tablet Take 1 tablet (625 mg) by mouth 2 times daily. 180 tablet 3 01/08/ Active docusate sodium (Colace) 100 MG capsule Take 1 capsule (100 mg) by mouth 2 times daily. 180 capsule 3 10/01/19 Active polyethylene glycol, PEG, 3350 (MiraLax) 17 GM/SCOOP powder Take 17 g by mouth Once per day. 527 g 3 10/01/19 25 Active dicyclomine (Bentyl) 10 MG capsule Take 1 capsule (10 mg) by mouth if needed in the morning, at noon, in the evening, and at bedtime (abd pain). 30 capsule 3 10/01/19 25 Active simethicone (Mylicon,Gas-X ) 125 MG capsule Take 1 capsule (125 mg) by mouth every 6 (six) hours if needed for flatulence. 30 capsule 3 10/01/19 25 Active ibuprofen 600 MG tablet Take 1 tablet (600 mg) by mouth every 6 (six) hours if needed for mild pain for up to 20 doses. 20 tablet 11/06/19 25 Active Junel FE 1.5/30 1.5-30 MG-MCG tablet Take 1 tablet by mouth Once per day. 11/13/19 25 Active baclofen (Lioresal) 10 MG tablet Take 1 tablet (10 mg) by mouth if needed in the morning, at noon, and at bedtime for muscle spasms. 60 tablet 1 11/18/19 25 026 Active Diclofenac Sodium 1 % gel Apply 2 g topically if needed in the morning, at noon, in the evening, and at bedtime (pain). 150 g 3 11/18/19 25 Active gabapentin (Neurontin) 100 MG capsule Take 1 capsule (100 mg) by mouth 3 times daily. 90 capsule 3 11/25/19 25 Active Sodium Fluoride 1.1 % creamIndicatio ns:Dental caries [place] teeth for 2 minutes, morning and night. Spit, do not rinse. Do not eat or drink anything for 30 minutes following use. 112 g 3 05/11/20 25 Active Semaglutide,0. 25 or 0.5MG/DOS, (Ozempic, 0.25 or 0.5 MG/DOSE,) 2 MG/3ML solution pen-injectorIn dications:Type 2 diabetes mellitus without complication, without long-term current use of insulin (HCC) Inject 0.5 mg under the skin 1 (one) time per week. 3 mL 11 06/29/20 Active amoxicillin-cl avulanate (Augmentin) 875-125 MG tablet Take 1 tablet by mouth 2 times daily for 7 days. 14 tablet 06/29/20 25 Active acetaminophen (Tylenol 8 Hour) 650 MG ER tablet Take 1 tablet (650 mg) by mouth every 8 (eight) hours if needed for mild pain or moderate pain. Do not crush, chew, or split. 40 tablet 1 06/29/20 25 Active oxyCODONE (Roxicodone) 5 MG immediate release tabletIndicati ons:Facial pain Take 1 tablet (5 mg) by mouth if needed in the morning, at noon, and at bedtime for severe pain for up to 5 days. 15 tablet 06/29/20 25 Active cetirizine (ZyrTEC) 10 MG tablet Take 1 tablet (10 mg) by mouth Once per day. 90 tablet 3 06/29/20 25 Active diphenhydrAMIN E (BENADryl) 25 MG tablet Take 1 tablet (25 mg) by mouth every 6 (six) hours if needed for itching. 30 tablet 1 06/29/20 25 Active loratadine (Claritin) 10 MG tablet Take 1 tablet (10 mg) by mouth in the morning. 30 tablet 11 11/20/19 24 Discontinued(Me d list cleanup (will not trigger notification to Pharmacy)) Varenicline Tartrate, Starter, (Chantix Starting Month ) 0.5 MG X 11 & 1 MG X 42 tablet therapy packIndication s:Tobacco dependence Take 0.5 mg by mouth Once per day for 3 days, THEN 0.5 mg 2 times daily for 4 days, THEN 1 mg 2 times daily. Take after meals with a full glass of water.. 53 each 06/04/20 24 Discontinued(Me d list cleanup (will not trigger notification to Pharmacy)) varenicline (Chantix) 1 MG tabletIndicati ons:Tobacco dependence Take 1 tablet (1 mg) by mouth 2 times daily. Take after meals with a full glass of water. 60 tablet 4 06/04/20 24 Discontinued(Me d list cleanup (will not trigger notification to Pharmacy)) acetaminophen (Tylenol) 500 MG tablet Take 2 tablets (1,000 mg) by mouth every 6 (six) hours if needed for moderate pain or fever for up to 25 doses. 50 tablet 06/16/20 24 Discontinued(Me d list cleanup (will not trigger notification to Pharmacy)) Semaglutide,0. 25 or 0.5MG/DOS, (Ozempic, 0.25 or 0.5 MG/DOSE,) 2 MG/3ML solution pen-injectorIn dications:Type 2 diabetes mellitus without complication, without long-term current use of insulin (HCC) Inject 0.25 mg under the skin 1 (one) time per week. 3 mL 3 12/24/19 25 Discontinued(Re order (will not trigger notification to Pharmacy)) amoxicillin-cl avulanate (Augmentin) 875-125 MG tablet Take 1 tablet by mouth 2 times daily for 7 days. 14 tablet 06/16/20 25 Discontinued(Re order (will not trigger notification to Pharmacy)) ibuprofen 600 MG tablet Take 1 tablet (600 mg) by mouth 3 times daily for 7 days. 21 tablet 06/16/20 25 025 Discontinued(Me d list cleanup (will not trigger notification to Pharmacy)) acetaminophen (Tylenol) 500 MG tablet Take 1 tablet (500 mg) by mouth every 8 (eight) hours if needed for mild pain for up to 7 days. 21 tablet 06/16/20 25 025 Discontinued(Me d list cleanup (will not trigger notification to Pharmacy)) Active Problems Problem Noted Date Diagnosed Date Chronic gastroesophageal reflux disease 06/29/20 Controlled type 2 diabetes alethea delgado with diabetic neuropathy 05/11/2025 Assessment & Plan (05/11/2025 6:01 PM EDT): Neuropathy 05/11/2025 Assessment & Plan (05/11/2025 6:01 PM EDT): Gingivitis due to dental avis que with [...] (11/27/2022): Problem added by Discern Expert BMI 34.0-34.9,adult 07/25/2015 Tobacco dependence 07/25/2015 Resolved Problems Problem Noted Date Diagnosed Date Resolved Date Missing teeth, acquired 04/07/2024 11/0 12/2024 Neuropathy 01/28/2024 02/23/2024 Left upper quadrant abdominal pain 10/16/2023 11/19/2023 Assessment & Plan (10/16/2023 9:35 AM EST): May be related to constipation/IBS. Unclear if exacerbated by meds like metformin and Trulicity. Given worsening of Sx I advised pt to come get examined today at [facility] Will repeat labs due to Hx of leukocytosis and r/o UA Recommended to hold Metformin x 2 days and see if Sx improved Unclear if related to pelvic congestion syndrome Recommend to be seen in the [facility] due to nasal congestion and other Sx, may needs to be tested for viral diseases, ei. covid and flu Acute frontal sinusitis 06/03/2023 02/0 02/2024 Low-lying placenta 11/27/2022 3 AMA (advanced maternal age) multigravida 35+ 3 11/27/2022 Depression 10/16/2022 12/18/2022 Smoker 10/16/2022 11/27/2022 Body aches 07/29/2018 11/27/2022 Alopecia 07/25/2015 12/18/2022 Chronic migraine 07/25/2015 10/01/2023 Encounters Date Type Department Care Team Description 06/29/2025 11:00 AM EST Office Visit [address] [address] Casie Angulo DO Type 2 diabetes mellitus without complication, without long-term current use of insulin ([facility]) (Primary Dx); Other hyperlipidemia; Chronic allergic rhinitis; Chronic gastroesophageal reflux disease; Chronic constipation; Pelvic congestion syndrome; Paresthesia of left arm and leg; Facial pain; Facial rash; Palpitations; Healthcare maintenance; Dietary counseling; Exercise counseling 06/29/2025 Travel 06/28/[address] [address] Casie Angulo DO Chart Prep 06/23/[address] [address] Casie Angulo DO Recall Appointment 06/23/2025 Travel 06/20/2025 9:00 AM EDT Office Visit [facility] [address] [place] [address] Levon Beckham DMD Alveolar osteitis (Primary Dx) 06/16/2025 11:00 AM EDT Office Visit [facility] [address] [place] [address] Raul Chaidez DDS 06/07/2025 Telephone [facility] [address] [place] [address] Phuong Vivar NP 05/11/2025 1:00 PM EDT Office Visit [facility] [address] [place] [address] Bang Hobson Dental calculus (Primary Dx); Dental caries 05/11/2025 11:15 AM EDT Office Visit [address] [address] Phuong Vivar NP Controlled type 2 diabetes mellitus with diabetic neuropathy, unspecified whether terminal carman insulin use ([facility]/HCC) (Primary Dx); Neuropathy; Right foot pain 05/11/2025 Travel 05/10/2025 Travel 05/10/[address] [address] Casie Angulo DO ER Follow-up 05/07/2025 Orders [...] Mass Index 34.46 06/29/2025 11:15 AM EST Plan of Treatment Health Maintenance Due Date Last Done Comments IPV Vaccines (2 of 3 - 4-dose series) 09/22/1997 08/25/1997 Family Planning (PISQ) 1998 HPV Vaccines (1 - 3-dose series) 1998 Mammogram 2023 Diabetes: Urine Protein Screening 06/28/2023 06/28/2022, 01/23/2021 COVID-19 Vaccine ( season) 2025 11/30/2021, 07/02/2021, 06/11/2021 Influenza Vaccine (#1) 2025 06/30/2019 Dental Oral Exam 11/09/2025 05/11/2025, 04/07/2024 Dental Prophylaxis 11/09/2025 05/11/2025, 04/07/2024 Depression Screening 11/17/2025 11/17/2024, 11/18/19 Lipid Panel 11/17/2025 11/17/2024, 08/26, 06/03/2023, Additional history exists SDOH Screening 11/17/2025 11/17/2024 Diabetes: Hemoglobin A1C 12/27/2025 025, 12/31/2024, 11/17/2024, Additional history exists Alcohol/Substance Use Screening 12/31/2025 12/31/2024 Eye Exam 02/15/2026 02/16/2024, 01/24, 02/16/2024, Additional history exists Pap Smear 04/14/2026 04/14/2023, 04/0 11/2021, 01/04/2019 Disability Screening 05/10/2026 05/10/2025 Diabetes: Foot Exam 05/11/2026 05/11/2025 Dental X-Ray: Bitewings 06/17/2026 06/16/20 25, 05/11/2025, 11/05/2024, Additional history exists Tobacco Screening 06/29/2026 06/29/2025 Dental X-Ray: Full Mouth 04/08/2027 04/07/2024, 02/22 [...] without long-term current use of insulin (HCC) CASE PRESENTATION, DETAILED AND EXTENSIVE TREATMENT PLANNING [...] AUTO DIFFERENTIAL Routine 05/07/2025 12:20 PM EDT HEPATITIS C AB W/REFL TO HCV [...] Relevant to Health Maintenance Results * XR Facial Bones 3+ Views (06/29/2025 12:10 PM EST) Anatomical Region Laterality Modality Head, Neck, Facial bones Radiogr aphic Imaging 06/29/2025 12:1 0 PM EST Narrative 06/29/2025 1:33 PM EST [address] [address] XRay Report Signed Patient: Casie Maki MR#: [id number] : 1985 Acct:[id number] Age/Sex: 40 / F ADM Date: 06/29/25 Loc: HO.HHCX Attending Dr: Casie Angulo DO Ordering Physician: Casie Angulo DO Date of Service: 06/29/25 Procedure(s): XR facial bones min 3V Accession Number(s): [id number] cc: Casie Angulo DO Reason for Exam: [...] 06/29/25 1330 DD/ 1210 TD/TT: 06/29/25 1220 Pre Sales Network Engineer: Procedure Note Donotpawaninterpreter, Image - 06/29/[address] [address] XRay Report Signed Patient: Casie MakiMR#: [id number] : 1985Acct:[id number] Age/Sex: 40 / FADM Date: 06/29/25 Loc: HO.HHCX Attending Dr: Casie Angulo DO Ordering Physician: Casie Angulo DO Date of Service: 06/29/25 Procedure(s): XR facial bones min 3V Accession Number(s): [id number] cc: Casie Angulo DO Reason for Exam: [...] Issac Wilson MD 06/29/2025 01:30 PM EST Dictated By: Issac Mancini MD Signed By: <Electronically signed by Issac Sy MDin OV> 06/29/25 1330 DD/ 1210 TD/TT: 06/29/25 1220 Pre Sales Network Engineer: Casie Angulo DO IMG XR PROCEDURES Final Resu lt * (ABNORMAL) POCT Hgb A1c (06/29/2025 11:19 AM EST) Hemoglobin A1C 6.8(A) 4.0 - 5.7 % QC Media Lot # [id number] Lot# Expiration Date ,570 Blood 06/29/2025 11:1 9 AM EST Csaie Angulo DO POINT OF CARE TEST ENTER/ANASTASIYA T ORDERABLES Final Result * POCT Glucose (06/29/2025 11:18 AM EST) Glucose Blood, POC 180 60 - 200 mg/dL QC Media Lot # [id number] Lot# Expiration Date 3,026 Blood Capillary blood specimen / Unknown 06/29/2025 11:18 AM EST Casie Angulo DO POINT OF CARE TEST ENTER/ANASTASIYA T ORDERABLES Final Result * XR Foot 3+ Views Right (05/07/2025 2:28 PM EDT) Anatomical Region Laterality Modality Lower Extremities, Foot Right Radiogra phic Imaging 05/07/2025 2:28 PM EDT Narrative 05/07/2025 2:28 PM EDT [place] [address] XRay Report Signed Patient: Casie Maki MR#: [id number] : 1985 Acct:[id number] Age/Sex: 40 / F ADM Date: 05/07/25 Loc: .ED Attending Dr: Ordering Physician: Timothy Panda MD Date of Service: 05/07/25 Procedure(s): XR foot RT min 3V Accession Number(s): [id number] cc: Timothy Panda MD; Casie Angulo DO [...] by Sixto Nguyen MD in OV> 05/07/25 142 DD/ 27 TD/TT: 05/07/251427 Pre Sales Network Engineer: Procedure Note Donotuseinterpreter, Image - 05/07/[address] [address] XRay Report Signed Patient: Casie MakiMR#: [id number] : 1985Acct:[id number] Age/Sex: 40 / FADM Date: 05/07/25 Loc: .ED Attending Dr: Ordering Physician: Timothy Panda MD Date of Service: 05/07/25 Procedure(s): XR foot RT min 3V Accession Number(s): [id number] cc: Timothy Panda MD; Casie Angulo DO [...] Nguyen MD in OV> 05/07/25 1428 DD/ 27 TD/TT: 05/07/251427 Pre Sales Network Engineer: [facility] External Provider IMG XR PROCEDURES Edited Result - Final * TSH with Reflex to Free T4 (05/07/2025 12:20 PM EDT) TSH reflex Free T4 0.85 0.32 - 4.0 uIU/mL [facility] 05/07/2025 12:2 0 PM EDT 05/07/2025 12:27 PM EDT us Generic External Data Provider LAB BLOOD ORDERAB LES Final Result [facility] [address] [place] [address] [phone] * (ABNORMAL) CBC auto differential (05/07/2025 12:20 PM EDT) White Blood Count 8.7 4.8 - 10.8 X10*3/uL [facility] Red Blood Count 3.98(L) 4.20 - 5.50 X10*6/uL [facility] Hemoglobin 12.4 12.0 - 16.0 g/dl [facility] Hematocrit 35.8(L) 37.0 - 47.0 % [facility] Mean Corpuscular Volume 89.9 80.0 - 98.0 fL [facility] Mean Corpuscular Hemoglobin 31.2 27.0 - 33.0 pg [facility] Mean Corpuscular HGB Conc 34.6 31.0 - 35.0 g/dl [facility] Red Cell Distribution Width 12.8 11.0 - 16.0 % [facility] Platelet Count 365 160 - 400 X10*3/uL [facility] Mean Platelet Volume 8.8(L) 9.4 - 12.3 fL [facility] Neutrophils Percent Auto 52.7 45 - 73 % [facility] Imm Gran Pct Auto 0.3 0.0 - 0.4 % [facility] Lymphocytes Percent Auto 38.4 20 - 40 % [facility] Monocytes Percent Auto 6.4 2 - 11 % [facility] Eosinophils Percent Auto 1.6 0 - 4 % [facility] Basophils Percent Auto 0.6 0 - 2 % [facility] NRBC Pct Auto 0.0 0.0 - 0.2 /100WBC [facility] Neutrophils Absolute Auto 4.6 2.0 - 8.3 x10*3/uL [facility] Imm Gran Abs Auto 0.03 0.00 - 0.03 X10*3/uL [facility] Lymphocytes Absolute Auto 3.4 1.2 - 4.9 X10*3/uL [facility] Monocytes Absolute Auto 0.6 0.1 - 1.2 X10*3/uL [facility] Eosinophils Absolute Auto 0.1 0.0 - 0.4 X10*3/uL [facility] Basophils Absolute Auto 0.1 0.0 - 0.2 X10*3/uL [facility] NRBC Abs Auto 0.000 0.0 - 0.012 X10*3/uL [facility] 05/07/2025 12:2 0 PM EDT 05/07/2025 12:27 PM EDT Generic External Data Provider LAB BLOOD ORDERAB LES Final Result Performing Organization Address City/[facility]/ZIP Co de Phone Number [facility] [address] [place] [phone] * Magnesium (05/07/2025 12:20 PM EDT) [facility] Magnesium 2.0 1.6 - 2.6 mg/dL [facility] 05/07/2025 12:2 0 PM EDT 05/07/2025 12:27 PM EDT Generic External Data Provider LAB BLOOD ORDERAB LES Final Result Performing Organization Address [facility]/ZIP Co de Phone Number [facility] [address] [place] [address] [phone] * (ABNORMAL) Comprehensive Metabolic Panel (05/07/2025 12:20 PM EDT) [facility] Sodium 140 135 - 145 mmol/L [facility] Potassium 4.0 3.3 - 5.1 mmol/L [facility] Chloride 107 96 - 108 mmol/L [facility] Carbon Dioxide 25 22 - 29 mmol/L [facility] Anion Gap 12 12 - 20 [facility] Urea Nitrogen (BUN) 17(H) 9 - 16 mg/dL [facility] Creatinine, Serum 0.61 0.5 - 1.4 mg/dL [facility] Creatinine Clr Calc Pharmacy 146.6 [facility] Comment:Provided height and weight: 170.18 cm,100.9 kg.eGFR (calculated from the MDRD study equation) and eCrCl(calculated from the Cockcroft-Gault equation) are based ondifferent parameters and may not yield comparable results.If eCrCl result is absurd, please check patient'sheight/weight. Estimated Glomerular Filt Rate >60 [facility] Comment:Chronic Kidney Disea se: Estimated GFR < 60 mL/min/1.71x8Oplhng Kidney Disease: Estimated GFR < 15 mL/min/1.73m2 Glucose 120(H) 60 - 115 mg/dL [facility] Calcium 9.0 8.4 - 10.2 mg/dL [facility] Bilirubin, Total 0.2 0.0 - 1.0 mg/dL [facility] Aspartate Amino Transferase 22 5 - 31 U/L [facility] Alanine Aminotransferase 29 0 - 31 U/L [facility] Total Protein 7.2 6.5 - 8.0 g/dL [facility] Albumin Level 4.4 3.5 - 5.0 g/dL [facility] Alkaline Phosphatase 81 39 - 117 U/L [facility] 05/07/2025 12:2 0 PM EDT 05/07/2025 12:27 PM EDT us Generic External Data Provider LAB BLOOD ORDERAB LES Final Result [facility] [address] [place] [address] [phone] * Hepatitis C Antibody with Reflex to HCV, RNA, Quantitative, Real-Time PCR (11/17/2024 12:40 PM EDT) [facility] Hepatitis C Antibody Nonreactive Nonreactive [facility] Comment:Antibodies to HCV no t detected; does not exclude early acuteHCV infection. Blood Venous blood specimen / Unknown 11/17/2024 12:40 PM EDT 11/17/2024 1:32 PM EDT Casie Goveahomerrody LAB BLOOD ORDERABLES Final R esult Performing Organization Address City/[facility]/ZIP Co de Phone Number [facility] [address] [place] [address] [phone] * HIV-1/2 Antigen and Antibodies, Fourth Generation, with Reflexes (11/17/2024 12:40 PM EDT) [facility] HIV AB/AG Nonreactive Nonreactive [facility] Comment:HIV-1 p24 Ag and/or HIV-1/HIV-2 Ab not detected.A test result that is nonreactive does not exclude thepossibility of exposure to or infection with HIV-1 and/orHIV-2. Nonreactive results in this assay for individualswith prior exposure to HIV-1 and/or HIV-2 may be due toantigen and antibody levels that are below the limit ofdetection of this assay.The MostroniPinger HIV Ag/Ab Combo assay result andsupplemental assay results should be interpreted inconjunction with the patient's clinical presentation,history and other laboratory results. If the results areinconsistent with clinical evidence, additional testing issuggested to confirm the result. Blood Venous blood specimen / Unknown 11/17/2024 12:40 PM EDT 11/17/2024 1:32 PM EDT Casie Goveahomerrody LAB BLOOD ORDERABLES Final R esult Performing Organization Address City/[facility]/ZIP Co de Phone Number [facility] [address] [place] [address] [phone] * Lipid Panel, Standard (11/17/2024 12:40 PM EDT) [facility] Triglycerides 81 <150 mg/dL [facility] Comment:Desirable Triglyceri de: less than 150 mg/dLBorderline High Triglyceride 150-199 mg/dLHigh Triglyceride: 200-499 mg/dLVery High Triglyceride: greater than or equal to 5OO mg/dL Cholesterol 162 <200 mg/dL [facility] Comment:Desirable Cholestero l: less than 200 mg/dLBorderline High Cholesterol: 200-239 mg/dLHigh Cholesterol: greater than 239 mg/dL LDL Cholesterol Calculated 99 <100 mg/dL [facility] Comment:Desirable LDL: less than 100 mg/dLNear Optimal/Above Optimal LDL: 110- 129 mg/dLBorderline High LDL: 130-159 mg/dLHigh LDL: 160-189 mg/dLVery High LDL: greater than or equal to 190 mg/dL HDL Cholesterol 47 >40 mg/dL [facility] Comment:Desirable HDL: great er than 40 mg/dL Note: This HDL assay may give artificially low results in patients with liver disease. Blood Venous blood specimen / Unknown 11/17/2024 12:40 PM EDT 11/17/2024 1:32 PM EDT Casie Angulo DO LAB BLOOD ORDERABLES Final R esult [facility] [address] [place] [phone] * Hm Pap Smear (04/14/2023) Pathologist [facility] Pap Negative for intraephithelial lesion or malignancy Negative for intraephithelial lesion or malignancy, Other HPV Not Detected Undetected, Indeterminate, Quantitative, Not Detected Historical Provider HEALTH MAINTENANCE Final Result * ALBUMIN, RANDOM URINE W/CREATININE (06/28/2022 1:38 PM EDT) Pathologist [facility] Microalbumin Urine 0.3 See Note: mg/dL CONVERTED [...] Most Recently Relevant to Health Maintenance Insurance [facility] - HSN FULL (MEDICAID) Care Teams Sprinkler Repair Technician Relationship Specialty Start Date End Date Casie Angulo DO [address] [place] [phone] PCP - General Family Medicine 08/25/18
--- OUTSIDE RECORDS SUMMARY | 2025-06-29 14:22 | XMS_ITS | Encounter Summary ---
Author Organization [employer] Address [address] [place] [address] 7t [place] [address] Care Team Providers Care Medical Claims Assistant Name Role Phone Casie Angulo DO Primary Care Provider + [phone] Alvin Caldera PharmD Unavailable Unavail able Antoinette Liu PharmD Unavailable [phone] Encounter Details Date Type Department Care Team (Late st Contact Info) Description 10/08/2022 Orders Only [facility] MED & PEDS [address] [place], [place] [phone] Casie Pinedo LPN Social History Tobacco Use [...] on filedocumented in this encounter Care Teams Medical Claims Assistant Relationship Specialty Start Date End Date Casie Angulo DO [address] [place] [address] PCP - General Family Medicine 08/25/18 Alvin Caldera, PharmD [address] [place] [address] Pharmacist Internal Medicine 12/10/22 04/30/23 Antoinette Liu, PharmD [address] [place] [address] Pharmacist Internal Medicine 05/01/23 01/03/25 documented as of this encounter
--- OUTSIDE RECORDS SUMMARY | 2025-06-29 14:22 | XMS_ITS | Encounter Summary ---
Author Organization [employer] Address [address] [facility] 7t [place] [address] Care Team Providers Care Artist Mannequin Coloring Name Role Phone StellaCasie fine Primary Care Provider + [phone] Antoinette Liu PharmD Unavailable [phone] Reason for Visit * Reason Onset Date Comments unable to post insurance 11/03/2024 Encounter Details Date Type Department Care Team ([facility] st Contact Info) Description 11/03/2024 Telephone [facility] ADULT DENTAL [address] [place] [address] Nicole Lozano DDS unable to post insurance [...] post HSN insurance portal not running on [employer] * Telephone Encounter - Nancie Mccann - [...] Component 6.8( 11:19 AM EST) No Alvin Caldera, PharmD Record your blood [...] documented as of this encounter Care Teams Artist Mannequin Coloring Relationship Specialty Start Date End Date Casie Angulo DO [address] [place] [address] PCP - General Family Medicine 08/25/18 Antoinette Liu, Torri [address] [place] [address] Pharmacist Internal Medicine 05/01/23 01/03/25 documented as of this encounter
--- OUTSIDE RECORDS SUMMARY | 2025-06-29 14:22 | XMS_ITS | Encounter Summary ---
Author Organization [employer] Address [address] [place] [address] 7 [place] [address] Care Team Providers Care Compressor Station Engineer Chief Name Role Phone Casie Angulo DO Primary Care Provider + [phone] Alvin Caldera PharmD Unavailable Unavail able Antoinette Liu PharmD Unavailable [phone] Encounter Details Date Type Department Care Team (Late st Contact Info) Description 09/19/2022 Orders Only [facility] [address] [place] [address] Whitney James LPN Social History Tobacco Use [...] on filedocumented in this encounter Care Teams Compressor Station Engineer Chief Relationship Specialty Start Date End Date Casie Angulo DO [address] [place] [address] PCP - General Family Medicine 08/25/18 Alvin Caldera, PharmD [address] [place] [address] Pharmacist Internal Medicine 12/10/22 04/30/23 Antoinette Liu, PharmD [address] [place] [address] Pharmacist Internal Medicine 05/01/23 01/03/25 documented as of this encounter
--- OUTSIDE RECORDS SUMMARY | 2025-06-29 14:22 | XMS_ITS | Encounter Summary ---
Author Organization [employer] Address [address] [facility] 7t [place] [address] Care Team Providers Care Lathmaker Name Role Phone Casie Angulo Primary Care Provider + [phone] Encounter Details Date Type Department Care Team (Latest Contact Info) Description 06/29/2025 Travel Social History Tobacco Use Types Packs/Day [...] Hemoglobin A1c < 7 Result Component 6.8( 5 11:19 AM EST) No Alvin Caldera PharmD [...] documented as of this encounter Care Teams Lathmaker Relationship Specialty Start Date End Date Casie Angulo DO [address] [place] [address] PCP - General Family Medicine 08/25/18 documented as of this encounter
--- OUTSIDE RECORDS SUMMARY | 2025-06-29 14:22 | XMS_ITS | Encounter Summary ---
Author Organization [employer] Address [address] [place] [address] 7t [place] [address] Care Team Providers Care Semiconductor Assembler Name Role Phone Casie Angulo DO Primary Care Provider + [phone] Alvin Caldera PharmD Unavailable Unavail able Antoinette Liu PharmD Unavailable [phone] Reason for Visit * Reason Comments Med Refill Encounter Details Date Type Department Care Team (Late st Contact Info) Description 02/06/2023 Refill [facility] MEDICINE [address] [place] [address] Casie Angulo DO [address] [place] [address] Social History Tobacco Use Types Packs/Day Years [...] Author Hemoglobin A1c < 7 Result Component 6.8(06/29/2025 11:19 AM EST) No Alvin Caldera, PharmD documented as of this encounter Visit Diagnoses Not on filedocumented in this encounter Additional Health Concerns Assessment Noted Time PHQ-9 Depression Total Score: 0 12/19/19 10:40 AM EDT documented as of this encounter Care Teams Semiconductor Assembler Relationship Specialty Start Date End Date Casie Angulo DO [address] [place] [address] PCP - General Family Medicine 08/25/18 Alvin Caldera, PharmD [address] [place] [address] Pharmacist Internal Medicine 12/10/22 04/30/23 Antoinette Liu PharmD [address] [place] [address] Pharmacist Internal Medicine 05/01/23 01/03/25 documented as of this encounter
--- OUTSIDE RECORDS SUMMARY | 2025-06-29 14:22 | XMS_ITS | Encounter Summary ---
Author Organization [employer] Address [address] [place] [address] 7t [place] [address] Care Team Providers Care Medicine Technologist Name Role Phone Casie Angulo DO Primary Care Provider + [phone] Alvin Caldera PharmD Unavailable Unavail able Antoinette Lui PharmD Unavailable [phone] Reason for Visit * Reason Comments Med Refill Encounter Details Date Type Department Care Team (Late st Contact Info) Description 10/23/2022 Refill [facility] [address] [place] [address] Casie Angulo DO [address] [place] [address] Muscle spasm Social History Tobacco Use Types [...] muscle documented in this encounter Care Teams Medicine Technologist Relationship Specialty Start Date End Date Csaie Angulo DO [address] [place] [address] PCP - General Family Medicine 08/25/18 Alvin Caldera, PharmD [address] [place] [address] Pharmacist Internal Medicine 12/10/22 04/30/23 Antoinette Liu, BriandaD [address] [place] [address] Pharmacist Internal Medicine 05/01/23 01/03/25 documented as of this encounter
--- OUTSIDE RECORDS SUMMARY | 2025-06-29 14:22 | XMS_ITS | Encounter Summary ---
Author Organization [employer] Address [address] [place] [address] 7 [place] [address] Care Team Providers Care Turf Keeper Name Role Phone Casie Angulo DO Primary Care Provider + [phone] Reason for Visit * Reason Onset Date Comments Chart Prep 06/28/2025 Encounter Details Date Type Department Care Team ([facility] st Contact Info) Description 06/28/2025 Telephone [facility] MEDICINE [address] [place], [place] [phone] Casie Angulo DO [address] [place] [address] Chart Prep Social History Tobacco Use Types Packs/Day Years [...] Telephone Encounter - Eunice Bell MA - 06/28/2025 1:43 PM EST Chart Prep Labs: not done Images: not applicable Referrals: not applicable Vaccines due: Covid, Flu, HPV, and IPV Screenings: mammogram, LMP, and PISQ Overdue care gaps: A1c, Glucose, PHQ-9, AURA-7, and Oral health screening documented in this encounter Plan of Treatment Not on file documented as of this encounter Goals Goal Patient Goal Type Associated Problems Recent Progress Patient-Stated? Author Hemoglobin A1c < 7 Result Component 6.8( 11:19 AM EST) No Alvin Caldera, PharmD Record your blood sugar as directed Result Component No Antoinette Liu, PharmD Note: Encouraged patient to increase frequency of SMBG monitoring to guide tx modification. documented as of this encounter Visit Diagnoses Not on filedocumented in this encounter Additional Health Concerns Assessment Noted Time PHQ-9 Depression Total Score: 5 11/18/19 25 1:07 PM EDT documented as of this encounter Care Teams Turf Keeper Relationship Specialty Start Date End Date Casie Angulo DO [address] [place] [address] PCP - General Family Medicine 08/25/18 documented as of this encounter
--- OUTSIDE RECORDS SUMMARY | 2025-06-29 14:22 | XMS_ITS | Encounter Summary ---
Author Organization [employer] Address [address] [place] [address] 7t [place] [address] Care Team Providers Care Senior Corporate Strategy Manager Name Role Phone Casie Angulo DO Primary Care Provider + [phone] Antoinette Liu PharmD Unavailable [phone] Reason for Visit * Reason Onset Date Comments Nurse Triage 07/28/2023 Encounter Details Date Type Department Care Team ([facility] st Contact Info) Description 07/28/2023 Telephone [facility] MEDICINE [address] [place], [place] [phone] Casie Angulo DO [address] [place] [address] Nurse Triage Social History Tobacco Use Types [...] documented as of this encounter Care Teams Senior Corporate Strategy Manager Relationship Specialty Start Date End Date Casie Angulo DO [address] [place] [address] PCP - General Family Medicine 08/25/18 Antoinette Liu, Torri [address] [place] [address] Pharmacist Internal Medicine 05/01/23 01/03/25 documented as of this encounter
== END 2025-06-29 11:41 | disposition home or self-care (01) ==
LOC: HO.HHCX 11:40
PROVIDERS: PCP Family Medicine; Visit Provider Family Medicine
DX: R51.9 Headache, unspecified (principal)
CPT/HCPCS: 70150

== ENCOUNTER → 2025-06-29 11:44 | Outpatient (BNV) | payer OTHER, SELFPAY | PROVIDERS: PCP Family Medicine; Visit Provider Radiology Diagnostic Radiology | DX: G89.18 Other acute postprocedural pain (principal) | CPT/HCPCS: 70150 ==

== ENCOUNTER → 2025-07-07 10:20 | Outpatient (REF) | payer OTHER, SELFPAY ==
--- NOTE | 2025-07-07 10:23 | HM_ITS ---
* Total monitoring time 2 days. * Underlying rhythm is sinus with an average rate of 93/Min. * Rare supraventricular ectopy. * Rare ventricular ectopy. * No significant pauses or high-grade AV blocks. * Chest discomfort in patient diary correlates with sinus rhythm. MTDD
[2025-07-07 11:36] LABS: Hematocrit 39.1 % (37.0-47.0); Hemoglobin 13.0 g/dl (12.0-16.0); Mean Corpuscular HGB Conc 33.2 g/dl (31.0-35.0); Mean Corpuscular Hemoglobin 30.7 pg (27.0-33.0); Mean Corpuscular Volume 92.4 fL (80.0-98.0); NRBC Abs Auto 0.000 X10*3/uL (0.0-0.012); NRBC Pct Auto 0.0 /100WBC (0.0-0.2); Platelet Count 359 X10*3/uL (160-400); Red Blood Count 4.23 X10*6/uL (4.20-5.50); White Blood Count 8.5 X10*3/uL (4.8-10.8)
[2025-07-07 12:05] LABS: Hemoglobin A1C 149.6858 umol/L
[2025-07-07 12:08] LABS: Microalbum/Creatinine Ratio Ur 18.8 ug/mg cr (<30)
[2025-07-07 12:23] LABS: Alanine Aminotransferase 40 U/L (0-31); Albumin Level 4.7 g/dL (3.5-5.0); Alkaline Phosphatase 81 U/L (39-117); Anion Gap 11 (12-20); Aspartate Amino Transferase 28 U/L (5-31); Blood Urea Nitrogen 13 mg/dL (9-16); Calcium 9.2 mg/dL (8.4-10.2); Carbon Dioxide 28 mmol/L (22-29); Chloride 104 mmol/L (96-108); Cholesterol 162 mg/dL (<200); Estimated Glomerular Filt Rate > 60; HDL Cholesterol 49 mg/dL (>40); Potassium 4.2 mmol/L (3.3-5.1); Sodium 139 mmol/L (135-145); Total Protein 7.6 g/dL (6.5-8.0); Triglycerides 73 mg/dL (<150)
--- OUTSIDE RECORDS SUMMARY | 2025-07-07 12:35 | XMS_ITS | Encounter Summary ---
Author Organization [employer] Address [address] [place] [address] 7 [place] [address] Care Team Providers Care Livestock Farm Workers Name Role Phone Casie Angulo DO Primary Care Provider + [phone] Alvin Caldera PharmD Unavailable Unavail able Antoinette Liu PharmD Unavailable [phone] Encounter Details Date Type Department Care Team (Late st Contact Info) Description 09/19/2022 Orders Only [facility] MEDICINE [address] [place] [address] Whitney James LPN Social History Tobacco Use [...] on filedocumented in this encounter Care Teams Livestock Farm Workers Relationship Specialty Start Date End Date Casie Angulo DO [address] [place] [address] PCP - General Family Medicine 08/25/18 Alvin Caldera, PharmD [address] [place] [address] Pharmacist Internal Medicine 12/10/22 04/30/23 Antoinette Liu, PharmD [address] [place] [address] Pharmacist Internal Medicine 05/01/23 01/03/25 documented as of this encounter
--- OUTSIDE RECORDS SUMMARY | 2025-07-07 12:35 | XMS_ITS | Encounter Summary ---
Author Organization [employer] Address [address] [place] [address] 7t [place] [address] Care Team Providers Care Route Delivery Driver Name Role Phone Casie Angulo DO Primary Care Provider + [phone] Alvin Caldera PharmD Unavailable Unavail able Antoinette Liu PharmD Unavailable [phone] Encounter Details Date Type Department Care Team (Late st Contact Info) Description 10/08/2022 Orders Only [facility] CH[facility] MED & PEDS [address] [place], [place] [phone] Casie Pinedo LPN Social History Tobacco Use [...] on filedocumented in this encounter Care Teams Route Delivery Driver Relationship Specialty Start Date End Date Casie Angulo DO [address] [place] [address] PCP - General Family Medicine 08/25/18 Alvin Caldera, PharmD [address] [place] [address] Pharmacist Internal Medicine 12/10/22 04/30/23 Antoinette Liu, PharmD [address] [place] [address] Pharmacist Internal Medicine 05/01/23 01/03/25 documented as of this encounter
--- OUTSIDE RECORDS SUMMARY | 2025-07-07 12:35 | XMS_ITS | Encounter Summary ---
Author Organization [employer] Address [address] [place] [address] 7t [place] [address] Care Team Providers Care Mobile Plant Operators Name Role Phone Casie Angulo DO Primary Care Provider + [phone] Alvin Caldera PharmD Unavailable Unavail able Antoinette Liu PharmD Unavailable [phone] Reason for Visit * Reason Comments Med Refill Encounter Details Date Type Department Care Team (Late st Contact Info) Description 02/06/2023 Refill [facility] [address] [place] [address] Casie Angulo DO [address] [place] [address] Social History Tobacco Use Types Packs/Day Years [...] Author Hemoglobin A1c < 7 Result Component 6.6(07/07/2025 10:53 AM EST) No Alvin Caldera, PharmD documented as of this encounter Visit Diagnoses Not on filedocumented in this encounter Additional Health Concerns Assessment Noted Time PHQ-9 Depression Total Score: 0 12/19/19 10:40 AM EDT documented as of this encounter Care Teams Mobile Plant Operators Relationship Specialty Start Date End Date Casie Angulo DO [address] [place] [address] PCP - General Family Medicine 08/25/18 Alvin Caldera, PharmD [address] [place] [address] Pharmacist Internal Medicine 12/10/22 04/30/23 Antoinette Liu PharmD [address] [place] [address] Pharmacist Internal Medicine 05/01/23 01/03/25 documented as of this encounter
--- OUTSIDE RECORDS SUMMARY | 2025-07-07 12:35 | XMS_ITS | Encounter Summary ---
Author Organization [employer] Address [address] [place] [address] 7t [place] [address] Care Team Providers Care Emergency Medical Technician/Driver Name Role Phone Casie Angulo DO Primary Care Provider + [phone] Alvin Caldera PharmD Unavailable Unavail able Antoinette Liu PharmD Unavailable [phone] Reason for Visit * Reason Comments Med Refill Encounter Details Date Type Department Care Team (Late st Contact Info) Description 10/23/2022 Refill [facility] [address] [place] [address] Casie Angulo DO [address] [place] [address] Muscle spasm Social History Tobacco Use Types [...] muscle documented in this encounter Care Teams Emergency Medical Technician/Driver Relationship Specialty Start Date End Date Casie Angulo DO [address] [place] [address] PCP - General Family Medicine 08/25/18 Alvin Caldera, PharmD [address] [place] [address] Pharmacist Internal Medicine 12/10/22 04/30/23 Antoinette Liu, BriandaD [address] [place] [address] Pharmacist Internal Medicine 05/01/23 01/03/25 documented as of this encounter
--- OUTSIDE RECORDS SUMMARY | 2025-07-07 12:35 | XMS_ITS | Encounter Summary ---
Author Organization [employer] Address [address] [facility] 7t [place] [address] Care Team Providers Care Cellophane Tester Name Role Phone StellaCasie fine Primary Care Provider + [phone] Antoinette Liu PharmD Unavailable [phone] Reason for Visit * Reason Onset Date Comments unable to post insurance 11/03/2024 Encounter Details Date Type Department Care Team ([facility] st Contact Info) Description 11/03/2024 Telephone [facility] [address] [place] [address] Nicole Lozano DDS unable to post insurance [...] post HSN insurance portal not running on [employer] * Telephone Encounter - Nancie Mccann - [...] Author Hemoglobin A1c < 7 Result Component 6.6( 10:53 AM EST) No Alvin Caldera, PharmD Record [...] documented as of this encounter Care Teams Cellophane Tester Relationship Specialty Start Date End Date Casie Angulo DO [address] [place] [address] PCP - General Family Medicine 08/25/18 Antoinette Liu, Torri [address] [place] [address] Pharmacist Internal Medicine 05/01/23 01/03/25 documented as of this encounter
--- OUTSIDE RECORDS SUMMARY | 2025-07-07 12:35 | XMS_ITS | Encounter Summary ---
Author Organization [employer] Address [address] [place] [address] 7t [place] [address] Care Team Providers Care Hvac Manager Name Role Phone Casie Angulo DO Primary Care Provider + [phone] Antoinette Liu PharmD Unavailable [phone] Reason for Visit * Reason Onset Date Comments Nurse Triage 07/28/2023 Encounter Details Date Type Department Care Team ([facility] st Contact Info) Description 07/28/2023 Telephone [facility] MEDICINE [address] [place], [place] [phone] Casie Angulo DO [address] [place] [address] Nurse Triage Social History Tobacco Use Types [...] documented as of this encounter Care Teams Hvac Manager Relationship Specialty Start Date End Date Casie Angulo DO [address] [place] [address] PCP - General Family Medicine 08/25/18 Antoinette Liu, Torri [address] [place] [address] Pharmacist Internal Medicine 05/01/23 01/03/25 documented as of this encounter
--- OUTSIDE RECORDS SUMMARY | 2025-07-07 12:35 | XMS_ITS | Clinical Summary ---
Author Organization [facility] [facility] [employer] Address [address] [place] [address] [address] [place] [address] Care Team Providers Care Workforce Advisor Name Role Phone JefersonCasie martins Primary Care Provider + [phone] Allergies No known active allergies Medications Blood [...] Sodium Fluoride 1.1 % creamIndicatio ns:Dental caries [place] teeth for 2 minutes, morning and night. [...] 1 (one) time per week. 3 mL 06/29/20 Active acetaminophen (Tylenol 8 Hour) 650 MG ER tablet Take 1 tablet (650 mg) by mouth every 8 (eight) hours if needed for mild pain or moderate pain. Do not crush, chew, or split. 40 tablet 1 06/29/20 25 Active cetirizine (ZyrTEC) 10 MG tablet Take 1 tablet (10 mg) by mouth Once per day. 90 tablet 3 06/29/20 026 Active diphenhydrAMIN E (BENADryl) 25 MG tablet Take 1 tablet (25 mg) by mouth every 6 (six) hours if needed for itching. 30 tablet 1 06/29/20 25 Active loratadine (Claritin) 10 MG tablet Take 1 tablet (10 mg) by mouth in the morning. 30 tablet 11 11/20/19 025 Discontinued([employer] d list cleanup (will not trigger notification [...] full glass of water.. 53 each 06/04/20 025 Discontinued([employer] d list cleanup (will not trigger notification to Pharmacy)) varenicline (Chantix) 1 MG tabletIndicati ons:Tobacco dependence Take 1 tablet (1 mg) by mouth 2 times daily. Take after meals with a full glass of water. 60 tablet 4 06/04/20 025 Discontinued(Me d list cleanup (will not trigger notification to Pharmacy)) acetaminophen (Tylenol) 500 MG tablet Take 2 tablets (1,000 mg) by mouth every 6 (six) hours if needed for moderate pain or fever for up to 25 doses. 50 tablet 06/16/20 24 025 Discontinued(Me d list cleanup (will not trigger notification to Pharmacy)) Semaglutide,0. 25 or 0.5MG/DOS, (Ozempic, 0.25 or 0.5 MG/DOSE,) 2 MG/3ML solution pen-injectorIn dications:Type 2 diabetes mellitus without complication, without long-term current use of insulin (HCC) Inject 0.25 mg under the skin 1 (one) time per week. 3 mL 3 12/24/19 25 025 Discontinued(Re order (will not trigger notification to Pharmacy)) amoxicillin-cl avulanate (Augmentin) 875-125 MG tablet Take 1 tablet by mouth 2 times daily for 7 days. 14 tablet 06/16/20 25 025 Discontinued(Re order (will not trigger notification to [...] cleanup (will not trigger notification to Pharmacy)) amoxicillin-cl avulanate (Augmentin) 875-125 MG tablet Take 1 tablet by mouth 2 times daily for 7 days. 14 tablet 06/29/20 25 025 oxyCODONE (Roxicodone) 5 MG immediate release tabletIndicati ons:Facial pain Take 1 tablet (5 mg) by mouth if needed in the morning, at noon, and at bedtime for severe pain for up to 5 days. 15 tablet 06/29/20 25 025 Active Problems Problem Noted Date [...] pt to come get examined today at [facility] Will repeat labs due to Hx of leukocytosis and r/o UA Recommended to hold Metformin x 2 days and see if Sx improved Unclear if related to pelvic congestion syndrome Recommend to be seen in the [facility] due to nasal congestion and other Sx, may needs to be tested for viral diseases, ei. covid and flu Acute frontal sinusitis 06/03/2023 02/0 02/2024 Low-lying placenta 11/27/2022 3 AMA (advanced maternal age) multigravida 35+ 3 11/27/2022 Depression 10/16/2022 12/18/2022 Smoker 10/16/2022 11/27/2022 Body aches 07/29/2018 11/27/2022 Alopecia 07/25/2015 12/18/2022 Chronic migraine 07/25/2015 10/01/2023 Encounters Date Type Department Care Team Description 06/30/2025 Results Follow-Up [facility] [address] [place] [phone] Casie Angulo DO XR Facial Bones 3+ Views 06/29/2025 11:00 AM EST Office Visit [address] [address] Casie Angulo DO Type 2 diabetes mellitus without complication, without long-term current use of insulin (HCC) (Primary Dx); Other hyperlipidemia; Chronic allergic rhinitis; Chronic gastroesophageal reflux disease; Chronic constipation; Pelvic congestion syndrome; Paresthesia of left arm and leg; Facial pain; Facial rash; Palpitations; Healthcare maintenance; Dietary counseling; Exercise counseling 06/29/2025 Travel 06/28/[address] [address] Casie Angulo DO Chart Prep 06/23/[address] [address] Casie Angulo DO Recall Appointment 06/23/2025 Travel 06/20/2025 9:00 AM EDT Office Visit [facility] [address] [place] [address] Levon Beckham DMD Alveolar osteitis (Primary Dx) 06/16/2025 11:00 AM EDT Office Visit [facility] [address] [place] [address] Raul Chaidez DDS 06/07/2025 Telephone [facility] [address] [place] [phone] Phuong Vivar NP 05/11/2025 1:00 PM EDT Office Visit [facility] [address] [place] [address] Bang Hobson Dental calculus (Primary Dx); Dental caries 05/11/2025 11:15 AM EDT Office Visit [address] [address] Phuong Vivar NP Controlled type 2 diabetes mellitus with diabetic neuropathy, unspecified whether scada technician insulin use (CMS/HCC) (Primary Dx); Neuropathy; Right foot pain 05/11/2025 Travel 05/10/2025 Travel 05/10/2025 Telephone [facility] [address] [place] [phone] Casie Angulo DO ER Follow-up 05/07/2025 Orders [...] Answer Date Recorded Patient Health Questionnaire-9 Score 13 06/30/2025 Patient Health Questionnaire-9 Score 13 06/30/2025 Last PHQ-9: Questionnaire Data Not on file 1 08/30/2024 Housing Stability Answer Date Recorded What is [...] Date Recorded Patient Health Questionnaire-2 Score 4 06/30/2025 Internet Access Answer Date Recorded Internet Access [...] (1 - 3-dose series) 1998 Mammogram 2023 COVID-19 Vaccine ( - season) 2025 11/30/2021, 07/02/2021, 06/11/2021 Influenza Vaccine (#1) 2025 06/30/2019 Dental Oral Exam 11/09/2025 05/11/2025, 04/07/2024 Dental Prophylaxis 11/09/2025 05/11/2025, 04/07/2024 Lipid Panel 11/17/2025 07/07/2025, 10/24, 09/19/2023, Additional history exists SDOH Screening 11/17/2025 11/17/2024 Depression Monitoring 12/28/2025 06/30/2025, 025 Alcohol/Substance Use Screening 12/31/2025 12/31/2024 Diabetes: Hemoglobin A1C 01/04/2026 025, 06/29/2025, 12/31/2024, Additional history exists Eye Exam 02/15/2026 02/16/2024, 01/24, 02/16/2024, Additional history exists Pap Smear 04/14/2026 04/14/2023, 04/0 11/2021, 01/04/2019 Disability Screening 05/10/2026 05/10/2025 Diabetes: Foot Exam 05/11/2026 05/11/2025 Dental X-Ray: Bitewings 06/17/2026 06/16/20 25, 05/11/2025, 11/05/2024, Additional history exists Tobacco Screening 06/29/2026 06/29/2025 Diabetes: Urine Protein Screening 07/07/2026 07/07/2025, 06/28/2022, 01/23/2021 Dental X-Ray: Full Mouth 04/08/2027 04/07/2024, 0702/2024 [...] Component 6.6( 10:53 AM EST) No Alvin Caldera PharmD Record your blood sugar as directed Result Component No Antoinette Liu PharmD Note: Encouraged patient to increase frequency of SMBG monitoring to guide tx modification. Procedures Procedure Name Priority Date/Time Associated Diagnosis Comments SED RATE BY MODIFIED YESSENIAREN Routine 07/07/2025 10:53 AM EST Type 2 diabetes mellitus without complication, without long-term current use of insulin (HCC) Other hyperlipidemia Chronic allergic rhinitis Chronic gastroesophageal reflux disease Chronic constipation Pelvic congestion syndrome Paresthesia of left arm and leg Healthcare maintenance Facial pain Facial rash Palpitations CBC Routine 07/07/2025 10:53 AM EST Type 2 diabetes mellitus without complication, without long-term current use of insulin (HCC) Other hyperlipidemia Chronic allergic rhinitis Chronic gastroesophageal reflux disease Chronic constipation Pelvic congestion syndrome Paresthesia of left arm and leg Healthcare maintenance Facial pain Facial rash Palpitations BASIC METABOLIC PANEL Routine 07/07/2025 10:53 AM EST Type 2 diabetes mellitus without complication, without long-term current use of insulin (HCC) Other hyperlipidemia Chronic allergic rhinitis Chronic gastroesophageal reflux disease Chronic constipation Pelvic congestion syndrome Paresthesia of left arm and leg Healthcare maintenance Facial pain Facial rash Palpitations HEPATIC FUNCTION PANEL Routine 07/07/2025 10:53 AM EST Type 2 diabetes mellitus without complication, without long-term current use of insulin (HCC) Other hyperlipidemia Chronic allergic rhinitis Chronic gastroesophageal reflux disease Chronic constipation Pelvic congestion syndrome Paresthesia of left arm and leg Healthcare maintenance Facial pain Facial rash Palpitations LIPID PANEL, STANDARD Routine 07/07/2025 10:53 AM EST Type 2 diabetes mellitus without complication, without long-term current use of insulin (HCC) Other hyperlipidemia Chronic allergic rhinitis Chronic gastroesophageal reflux disease Chronic constipation Pelvic congestion syndrome Paresthesia of left arm and leg Healthcare maintenance Facial pain Facial rash Palpitations HEMOGLOBIN A1C Routine 07/07/2025 10:53 AM EST Type 2 diabetes mellitus without complication, without long-term current use of insulin ([facility]) Paresthesia of left arm and leg C-REACTIVE PROTEIN Routine 07/07/2025 10 :53 AM EST Paresthesia of left arm and leg RHEUMATOID FACTOR Routine 07/07/2025 10: 53 AM EST Paresthesia of left arm and leg ALBUMIN, RANDOM URINE W/CREATININE Routine 07/07/2025 10:43 AM EST Type 2 diabetes mellitus without complication, without long-term current use of insulin (HCC) Other hyperlipidemia Chronic allergic rhinitis Chronic gastroesophageal reflux disease Chronic constipation Pelvic congestion syndrome Paresthesia of left arm and leg Healthcare maintenance Facial pain Facial rash Palpitations XR FACIAL BONES 3+ VIEWS Routine 06/29/2025 12:10 PM EST Facial pain POCT GLYCATED HEMOGLOBIN, TOTAL Routine 06/29/2025 11:19 AM EST Type 2 diabetes mellitus without complication, without long-term current use of insulin ([facility]) POCT GLUCOSE Routine 06/29/2025 11:18 AM EST Type 2 diabetes mellitus without complication, without long-term current use of insulin ([facility]) CASE PRESENTATION, DETAILED AND EXTENSIVE [...] Missing teeth, acquired HM PAP/HPV Routine 04/14/2023 from Last 3 Months or Most Recently Relevant to Health Maintenance Results * Sed Rate by Modified W[place] (07/07/2025 10:53 AM EST) Erythrocyte Sedimentation Rate 20 0 - 20 MM/HR [facility] Comment:Patients with polycy themia and many hemoglobin abnormalitiesmay have depressed sed rates whereas patients with anemiamay have elevated sed rates. Blood Venous blood specimen / Unknown 07/07/2025 10:53 AM EST 07/07/2025 10:53 AM EST us Casie Angulo DO LAB BLOOD ORDERABLES Final R esult [facility] [address] [place] [address] [phone] * CBC (07/07/2025 10:53 AM EST) White Blood Count 8.5 4.8 - 10.8 X10*3/uL [facility] Red Blood Count 4.23 4.20 - 5.50 X10*6/uL [facility] Hemoglobin 13.0 12.0 - 16.0 g/dl [facility] Hematocrit 39.1 37.0 - 47.0 % [facility] Mean Corpuscular Volume 92.4 80.0 - 98.0 fL [facility] Mean Corpuscular Hemoglobin 30.7 27.0 - 33.0 pg [facility] Mean Corpuscular HGB Conc 33.2 31.0 - 35.0 g/dl [facility] Red Cell Distribution Width 12.9 11.0 - 16.0 % [facility] Platelet Count 359 160 - 400 X10*3/uL [facility] Mean Platelet Volume 9.4 9.4 - 12.3 fL [facility] NRBC Pct Auto 0.0 0.0 - 0.2 /100WBC [facility] NRBC Abs Auto 0.000 0.0 - 0.012 X10*3/uL [facility] Blood Venous blood specimen / Unknown 07/07/2025 10:53 AM EST 07/07/2025 10:53 AM EST Casie Kev DO LAB BLOOD ORDERABLES Final R esult [facility] [address] [place] [phone] * (ABNORMAL) Hemoglobin A1c (07/07/2025 10:53 AM EST) Hemoglobin A1c 6.6(H) <6.0 % [facility] Comment:Hemoglobin A1C Refer ence Range Adults: 4.8 - 6.0 % Non diabetic: < 6.0 % Goal: < 7.0 %Additional Action Suggested: > 8.0 %Note: Hemoglobin A1c results are invalid for patients with abnormal amounts of HbF. Blood transfusions may impact the HbA1c concentration in the patient sample. Estimated Average Glucose 143 mg/dL [facility] Comment:eAG = Estimated ave rage glucose which is %A1C expressed asaverage glucose, using the formula of the J0N-IvzpgugDvltejw Glucose study (ADAG), Diabetes Care, Vol.31,#8,Mar. 2007 Blood Venous blood specimen / Unknown 07/07/2025 10:53 AM EST 07/07/2025 10:53 AM EST Casie Kev DO LAB BLOOD ORDERABLES Final R esult [facility] [address] [place] [phone] * Albumin, Random Urine W/Creatinine (07/07/2025 10:43 AM EST) Creatinine, Urine 31.78 mg/dL [facility] Microalbumin Urine 6.0 mg/L [facility] Microalbum Creatinine Ratio Ur 18.8 <30 ug/mg cr [facility] Comment:Albumin/Creatinine R atio Reference Ranges: Normal: < 30 ug/mg creatinine Microalbuminuria: 30 - 300 ug/mg creatinineClinical Albuminuria: > 300 ug/mg creatinine Urine (Urine, Random) 07/07/2025 10:43 AM EST 07/07/2025 11:26 AM EST us Casie Angulo DO LAB URINE ORDERABLES Final R esult Performing Organization Address City/State/[facility] Co de Phone Number [facility] [address] [place] [phone] * XR Facial Bones 3+ Views (06/29/2025 12:10 PM EST) Anatomical Region Laterality Modality Head, Neck, Facial bones Radiogr aphic Imaging 06/29/2025 12:1 0 PM EST Narrative 06/29/2025 1:33 PM EST [address] [address] XRay Report Signed Patient: Casie Maki MR#: [id number] : 1985 Acct:[id number] Age/Sex: 40 / F ADM Date: 06/29/25 Loc: HO.HHCX Attending Dr: Casie Angulo DO Ordering Physician: Casie Angulo DO Date of Service: 06/29/25 Procedure(s): XR facial bones min 3V Accession Number(s): [id number] cc: Casie Angulo DO Reason for Exam: [...] 06/29/25 1330 DD/ 1210 TD/TT: 06/29/25 1220 Field Advisor: Procedure Note Donotuseinterpreter, Image - 06/29/2025 [place] [address] XRay Report Signed Patient: Casie MakiMR#: [id number] : 1985Acct:[id number] Age/Sex: 40 / FADM Date: 06/29/25 Loc: HOHHCX Attending Dr: Casie Angulo DO Ordering Physician: Casie Angulo DO Date of Service: 06/29/25 Procedure(s): XR facial bones min 3V Accession Number(s): [id number] cc: Casie Angulo DO Reason for Exam: [...] signed by Issac Sy MDin OV> 06/29/25 133 DD/ 1210 TD/TT: 06/29/25 1220 Field Advisor: Casie Kev DO IMG XR PROCEDURES Final Resu lt * (ABNORMAL) POCT Hgb A1c (06/29/2025 11:19 AM EST) Hemoglobin A1C 6.8(A) 4.0 - 5.7 % QC Media Lot # [id number] Lot# Expiration Date Blood 06/29/2025 11:1 9 AM EST Casie Kev DO POINT OF CARE TEST ENTER/ANASTASIYA T ORDERABLES Final Result * POCT Glucose (06/29/2025 11:18 AM EST) Glucose Blood, POC 180 60 - 200 mg/dL QC Media Lot # [id number] Lot# Expiration Date ,026 Blood Capillary blood specimen / Unknown 06/29/2025 11:18 AM EST Casie Kev DO POINT OF CARE TEST ENTER/ANASTASIYA T ORDERABLES Final Result * XR Foot 3+ Views Right (05/07/2025 2:28 PM EDT) Anatomical Region Laterality Modality Lower Extremities, Foot Right Radiogra phic Imaging 05/07/2025 2:28 PM EDT Narrative 05/07/2025 2:28 PM EDT [address] [address] XRay Report Signed Patient: Casie Maki MR#: [id number] : 1985 Acct:[id number] Age/Sex: 40 / F ADM Date: 05/07/25 Loc: .ED Attending Dr: Ordering Physician: Timothy Panda MD Date of Service: 05/07/25 Procedure(s): XR foot RT min 3V Accession Number(s): [id number] cc: Timothy Panda MD; Casie Angulo DO [...] OV> 05/07/25 1428 DD/ 27 TD/TT: 05/07/251427 Field Advisor: Procedure Note Donotpawaninterpreter, Image - 05/07/2025 [place] [address] XRay Report Signed Patient: Casie MakiMR#: [id number] : 1985Acct:[id number] Age/Sex: 40 / FADM Date: 05/07/25 Loc: HO.ED Attending Dr: Ordering Physician: Timothy Panda MD Date of Service: 05/07/25 Procedure(s): XR foot RT min 3V Accession Number(s): [id number] cc: Timothy Panda MD; Casie Angulo DO [...] in OV> 05/07/25 1428 DD/ 1428 TD/TT: 05/07/251427 Field Advisor: us [facility] External Provider IMG XR PROCEDURES Edited Result - Final * TSH with Reflex to Free T4 (05/07/2025 12:20 PM EDT) Pathologist [facility] TSH reflex Free T4 0.85 0.32 - 4.0 uIU/mL [facility] 05/07/2025 12:2 0 PM EDT 05/07/2025 12:27 PM EDT Generic External Data Provider LAB BLOOD ORDERAB LES Final Result [facility] [address] [place] [phone] * (ABNORMAL) CBC auto differential (05/07/2025 12:20 PM EDT) Pathologist [facility] White Blood Count 8.7 4.8 - 10.8 X10*3/uL [facility] Red Blood Count 3.98(L) 4.20 - 5.50 X10*6/uL [facility] Hemoglobin 12.4 12.0 - 16.0 g/dl [facility] Hematocrit 35.8(L) 37.0 - 47.0 % [facility] Mean Corpuscular Volume 89.9 80.0 - 98.0 fL [facility] Mean Corpuscular Hemoglobin 31.2 27.0 - 33.0 pg [facility] Mean Corpuscular HGB Conc 34.6 31.0 - 35.0 g/dl [facility] Red Cell Distribution Width 12.8 11.0 - 16.0 % [facility] Platelet Count 365 160 - 400 X10*3/uL [facility] Mean Platelet Volume 8.8(L) 9.4 - 12.3 fL [facility] Neutrophils Percent Auto 52.7 45 - 73 % [facility] Imm Gran Pct Auto 0.3 0.0 - 0.4 % [facility] Lymphocytes Percent Auto 38.4 20 - 40 % [facility] Monocytes Percent Auto 6.4 2 - 11 % [facility] Eosinophils Percent Auto 1.6 0 - 4 % [facility] Basophils Percent Auto 0.6 0 - 2 % [facility] NRBC Pct Auto 0.0 0.0 - 0.2 /100WBC [facility] Neutrophils Absolute Auto 4.6 2.0 - 8.3 x10*3/uL [facility] Imm Gran Abs Auto 0.03 0.00 - 0.03 X10*3/uL [facility] Lymphocytes Absolute Auto 3.4 1.2 - 4.9 X10*3/uL [facility] Monocytes Absolute Auto 0.6 0.1 - 1.2 X10*3/uL [facility] Eosinophils Absolute Auto 0.1 0.0 - 0.4 X10*3/uL [facility] Basophils Absolute Auto 0.1 0.0 - 0.2 X10*3/uL [facility] NRBC Abs Auto 0.000 0.0 - 0.012 X10*3/uL [facility] 05/07/2025 12:2 0 PM EDT 05/07/2025 12:27 PM EDT us Generic External Data Provider LAB BLOOD ORDERAB LES Final Result Performing Organization Address [facility] Co de Phone Number [facility] [address] [place] [phone] [phone] * Magnesium (05/07/2025 12:20 PM EDT) Magnesium 2.0 1.6 - 2.6 mg/dL [facility] 05/07/2025 12:2 0 PM EDT 05/07/2025 12:27 PM EDT us Generic External Data Provider LAB BLOOD ORDERAB LES Final Result Performing Organization Address City/[facility]/ZIP Co de Phone Number [facility] [address] [place] [phone] * (ABNORMAL) Comprehensive Metabolic Panel (05/07/2025 12:20 PM EDT) Sodium 140 135 - 145 mmol/L [facility] Potassium 4.0 3.3 - 5.1 mmol/L [facility] Chloride 107 96 - 108 mmol/L [facility] Carbon Dioxide 25 22 - 29 mmol/L [facility] Anion Gap 12 12 - 20 [facility] Urea Nitrogen (BUN) 17(H) 9 - 16 mg/dL [facility] Creatinine, Serum 0.61 0.5 - 1.4 mg/dL [facility] Creatinine Clr Calc Pharmacy 146.6 [facility] Comment:Provided height and weight: 170.18 cm,100.9 kg.eGFR (calculated from the MDRD study equation) and eCrCl(calculated from the Cockcroft-Gault equation) are based ondifferent parameters and may not yield comparable results.If eCrCl result is absurd, please check patient'sheight/weight. Estimated Glomerular Filt Rate >60 [facility] Comment:Chronic Kidney Disea se: Estimated GFR < 60 mL/min/1.40e2Wngnip Kidney Disease: Estimated GFR < 15 mL/min/1.73m2 Glucose 120(H) 60 - 115 mg/dL [facility] Calcium 9.0 8.4 - 10.2 mg/dL [facility] Bilirubin, Total 0.2 0.0 - 1.0 mg/dL [facility] Aspartate Amino Transferase 22 5 - 31 U/L [facility] Alanine Aminotransferase 29 0 - 31 U/L [facility] Total Protein 7.2 6.5 - 8.0 g/dL [facility] Albumin Level 4.4 3.5 - 5.0 g/dL [facility] Alkaline Phosphatase 81 39 - 117 U/L [facility] 05/07/2025 12:2 0 PM EDT 05/07/2025 12:27 PM EDT us Generic External Data Provider LAB BLOOD ORDERAB LES Final Result Performing Organization Address [facility] Co de Phone Number [facility] [address] [place] [phone] * Hepatitis C Antibody with Reflex to HCV, RNA, Quantitative, Real-Time PCR (11/17/2024 12:40 PM EDT) Hepatitis C Antibody Nonreactive Nonreactive [facility] Comment:Antibodies to HCV no t detected; does not exclude early acuteHCV infection. Blood Venous blood specimen / Unknown 11/17/2024 12:40 PM EDT 11/17/2024 1:32 PM EDT Casie Angulo DO LAB BLOOD ORDERABLES Final R esult Performing Organization Address [facility] Co de Phone Number [facility] [address] [place] [phone] * HIV-1/2 Antigen and Antibodies, Fourth Generation, with Reflexes (11/17/2024 12:40 PM EDT) HIV AB/AG Nonreactive Nonreactive [facility] Comment:HIV-1 p24 Ag and/or HIV-1/HIV-2 Ab not detected.A test result that is nonreactive does not exclude thepossibility of exposure to or infection with HIV-1 and/orHIV-2. Nonreactive results in this assay for individualswith prior exposure to HIV-1 and/or HIV-2 may be due toantigen and antibody levels that are below the limit ofdetection of this assay.The [employer] HIV Ag/Ab Combo assay result andsupplemental assay results should be interpreted inconjunction with the patient's clinical presentation,history and other laboratory results. If the results areinconsistent with clinical evidence, additional testing issuggested to confirm the result. Blood Venous blood specimen / Unknown 11/17/2024 12:40 PM EDT 11/17/2024 1:32 PM EDT Casie Angulo DO LAB BLOOD ORDERABLES Final R esult [facility] [address] [place] [address] [phone] * Pap Smear (04/14/2023) Pap Negative for intraephithelial lesion or malignancy Negative for intraephithelial lesion or malignancy, Other HPV Not Detected Undetected, Indeterminate, Quantitative, Not Detected Historical Provider MD HEALTH MAINTENANCE Final Result from Last 3 Months or Most Recently Relevant to Health Maintenance Insurance [facility]LY [facility] - HSN FULL (MEDICAID) Care Teams Workforce Advisor Relationship Specialty Start Date End Date Casie Angulo DO [address] [place] [id number] PCP - General Family Medicine 08/25/18
[2025-07-07 12:40] LABS: Free T4 (Free Thyroxine) 1.11 ng/dL (0.71-1.85); Thyroid Stimulating Hormone 0.96 uIU/mL (0.32-4.0)
[2025-07-07 12:49] LABS: HBS Num1 88.02 mIU/mL (0-7.99); HBsAGNum1 0.36 S/CO (0.00-0.99); HIV Num 1 0.09 S/CO (0.00-0.99); Hepatitis B Surface Antigen Negative (Negative); ~HepC Num1 0.13 S/CO (0.00-0.79); ~Hepatitis B Surface Antibody REACTIVE (Nonreactive); ~Hepatitis C Antibody Nonreactive (Nonreactive)
[2025-07-07 12:59] LABS: Folate 12.0 ng/mL (> or = 4.0); Vitamin B12 1796 pg/mL (200-900)
[2025-07-08 08:14] LABS: Lyme Abs Screen <0.90 index
[2025-07-11 10:12] LABS: Anti Nuclear Antibody Screen NEGATIVE (NEGATIVE)
== END ==
LOC: HO.CARD 10:20
PROVIDERS: PCP Family Medicine; Visit Provider Family Medicine
DX: Z00.00 Encounter for general adult medical examination without abnormal findings (principal); R00.2 Palpitations; Z11.59 Encounter for screening for other viral diseases; Z20.2 Contact with and (suspected) exposure to infections with a predominantly sexual mode of transmission; Z11.4 Encounter for screening for human immunodeficiency virus [HIV]; Z20.6 Contact with and (suspected) exposure to human immunodeficiency virus [HIV]; E11.9 Type 2 diabetes mellitus without complications; G89.29 Other chronic pain; E78.49 Other hyperlipidemia; K59.09 Other constipation; R20.2 Paresthesia of skin; J30.9 Allergic rhinitis, unspecified; R10.11 Right upper quadrant pain; M54.9 Dorsalgia, unspecified; R51.9 Headache, unspecified; N94.89 Other specified conditions associated with female genital organs and menstrual cycle; R21 Rash and other nonspecific skin eruption
CPT/HCPCS: 36415; 80048; 80061; 80076; 82043; 82306; 82570; 82607; 82746; 83036; 84439; 84443; 85027; 85652; 86038; 86140; 86431; 86592; 86617; 86618; 86706; 86803; 87340; 87389; 93225

== ENCOUNTER → 2025-07-07 10:23 | Outpatient (BNV) | payer OTHER, SELFPAY | PROVIDERS: PCP Family Medicine; Visit Provider Internal Medicine | DX: I49.3 Ventricular premature depolarization (principal); I49.49 Other premature depolarization | CPT/HCPCS: 93227 ==

== ENCOUNTER 2025-08-16 10:14 | Outpatient (AMB) | payer OTHER, SELFPAY ==
--- NOTE | 2025-08-16 10:29 | MHC.OFFVIS ---
Intake Visit Reasons: Paresthesia of left arm and leg Allergies No Known Allergies Allergy (Mild, Verified 05/07/25 12:12) NOT APPLICABLE HPI Comments Details: This is a 40-year-old woman with a history of insulin-dependent diabetes since childhood currently on Ozempic 0.5 mg a day comes in for evaluation of weird sensation and feelings in her scalp and head for the last 1-1/2 year. It comes and goes usually lasting all day on an average 3 times a week. She describes it as a wobbly feeling in the head and scalp sensitivity as if she has been hit on the head. In November she complained to her primary care physician about some tingling and numbness in her left arm and left leg and similar symptoms in December and January of 2024. She had an MRI of the brain in November 2024 which showed multiple nonspecific white matter hyperintensities in the subcortical, deep white matter and periventricular distribution. Her last A1c was 6.6. Lyme titers and RUFINA were negative. In 2022 she had a normal CTA of the head and neck. She had nerve conduction velocities and EMG study of the left upper extremity in 2018 and 2022 both of which were also normal [facility] Medical History (Updated 08/16/25 @ 10:43 by Bhavna Berman MD) Diabetes Anal pain Constipation Hemorrhoids with complication Pelvic varices Surgical History (Updated 06/27/25 @ 09:58 by GRANT Hankins) H/O tubal ligation History of hemorrhoidectomy Family History Maternal Aunt Breast cancer in female Mother HTN (hypertension) Social History Alcohol intake: former Patient Tobacco Use Status: Current everyday Tobacco user Tobacco use type: Cigarette Cigarette Packs Per Day: 0.5 Cigarettes Per Day: 10.0 Years Smoked: 14 Female Reproductive History Menstrual Age of Menarche: 10 Review of Systems Const Reports difficulty sleeping, Reports fatigue and Reports headache(s) ENT Reports dizziness and Reports headache(s) Neuro Details: Scalp paresthesia and weird sensation Reports dizziness, Reports headache(s) and Reports paresthesias Endo Reports fatigue Physical Exam Neuro Other: Mini Mental Status Exam Level of Consciousness:?Alert.? Orientation:?Knows correct year, month, date, day and season.?Knows correct city, county and state. Knows correct location and floor.? Registration:?Able to register 3 objects.? Attention:?Serial 7's performed?? accurately.? Recall:?Able to recall 3 out of 3 objects.? Language:?Normal spontaneous speech, fluency, repetition, naming, comprehension, reading, and writing.? ?? Total Score:?30/30.? Neurological Abnormal neurological findings:??None. ? Mental Status:?Alert and oriented X 3.?Normal attention, orientation, memory, and affect.? Cranial Nerves:?Pupils are equal, round and reactive to light. Fundoscopy shows normal disc bilaterally. External ocular muscles are intact. Visual castanon are full, no ptosis. Face is symmetrical, no facial weakness or droop. Facial sensations are normal.? Tongue protrudes in midline. Palate elevates symmetrically. Shoulder?? shrugging is normal.? Motor Examination:?Normal muscle tone, bulk and strength.?No atrophy or fasciculations.?No drift of the extended upper extremities.?Deep tendon reflexes are 2+.?Plantars?? are flexor.? ?Motor Strength:? Proximal Muscles (out of 5):?5 Distal Muscles (out of 5):?5 Neck Flexors (out of 5):?5 Neck Extensors (out of 5):?5 Deltoid (out of 5):?5 Biceps (out of 5):?5 Triceps (out of 5):?5 Serratus Anterior (out of 5):?5 Wrist Extensors (out of 5):?5 APB (out of 5):?5 Finger Spread (out of 5):?5 Ileopsoas (out of 5):?5 Quadriceps (out of 5):?5 Hamstrings (out of 5):?5 Tibialis Anterior (out of 5):?5 Peronei (out of 5):?5 EDB (out of 5):?5 Gastrocnemius (out of 5):?5 Straight Leg Raising:?90 degrees.? Sensory Exam:?Normal light touch,?? temperature, pinprick, vibration and joint-position sensations.?Rhomberg?? sign is absent.? Coordination:?No ataxia,?no titubation,?ppwbcu-[id number]-[id number], delu-blon-twrg test, and rapid alternating?? movements were normal.? Gait Exam:?Normal. ? Cerebellar Signs:?Jtddfo-bx-sowd and?? ecjw-vd-spjx is normal.?No dysdiadochokinesia.? Extrapyramidal System:?No tremor or?rigidity, normal facial expressions.?No bradykinesia. No bradyphrenia. Normal arm swing and posture. No propulsion or retropulsion.? Speech:?Normal,?no dysphasia or dysarthria.? General Examination GENERAL APPEARANCE:??Morbid obesity, in no acute distress?.? ?? HEAD:??normocephalic,?atraumatic.? ?? EYES:??sclera non-icteric,?conjunctiva clear.? ?? EARS:??auditory canal clear,?tympanic membrane intact, clear.? ?? NOSE:??no lesions.? ?? ORAL CAVITY:??gums normal,?mucosa moist,?no lesions.? ?? THROAT:??clear.? ?? NECK/THYROID:??no cervical lymphadenopathy,?thyroid normal,?neck supple, full range of motion,?no carotid bruit.? ?? SKIN:??no rashes,?no significant?? birthmarks.? ?? HEART:??S1, S2 normal,?no murmurs? ?? LUNGS:??clear anteriorly and? posteriorly? ?? CHEST:??no gross rib deformity,?clear to? auscultation.? ?? BACK:??normal exam of spine.? ?? MUSCULOSKELETAL:??normal.? ?? EXTREMITIES:??no edema.? ?? PERIPHERAL PULSES:??normal.? ?? PSYCH:??alert, oriented,?cognitive function intact,?cooperative Assessment & Plan Assessment & Plan (1) White matter abnormality on MRI of brain: Code(s): R90.82 - White matter disease, unspecified Category: Medical (2) Demyelinating disorder: Code(s): G37.9 - Demyelinating disease of central nervous system, unspecified Category: Medical (3) Tension headache: Code(s): G44.209 - Tension-type headache, unspecified, not intractable Category: Medical Plan Spinal fluid for MS studies. amitriptyline 10mg hs Orders: Orders Immunofixation, CSF Today G37.9 - Demyelinating disease of central nervous system, unspecified, R90.82 - White matter disease, unspecified CSF Glucose Today G37.9 - Demyelinating disease of central nervous system, unspecified, R90.82 - White matter disease, unspecified CSF Total Protein Today G37.9 - Demyelinating disease of central nervous system, unspecified, G44.209 - Tension-type headache, unspecified, not intractable FL guided lumbar puncture LP Today G37.9 - Demyelinating disease of central nervous system, unspecified, R90.82 - White matter disease, unspecified Oligoclonal Banding Today G37.9 - Demyelinating disease of central nervous system, unspecified CSF Cell Count w Diff Today G37.9 - Demyelinating disease of central nervous system, unspecified, R90.82 - White matter disease, unspecified Medications: New amitriptyline 10 mg PO BEDTIME 30 tabs 3RF Coding Level of Care Code New Pt Level 5 (21705) Diagnoses White matter abnormality on MRI of brain R90.82 Demyelinating disorder G37.9 Tension headache G44.209
--- OUTSIDE RECORDS SUMMARY | 2025-08-16 11:20 | XMS_ITS | Encounter Summary ---
Author Organization [employer] Address [address] [place] [address] [address] [place] [address] Care Team Providers Care Senior Health Educator Name Role Phone Casie Angulo DO Primary Care Provider + [phone] Alvin Caldera PharmD Unavailable Unavail able Antoinette Liu PharmD Unavailable [phone] Reason for Visit * Reason Comments Med Refill Encounter Details Date Type Department Care Team (Late st Contact Info) Description 10/23/2022 Refill [facility] [address] [place] [address] Casie Angulo DO [address] [place] [address] Muscle spasm Social History Tobacco Use Types [...] muscle documented in this encounter Care Teams Senior Health Educator Relationship Specialty Start Date End Date Casie Angulo DO [address] [place] [address] PCP - General Family Medicine 08/25/18 Alvin Caldera, PharmD [address] [place] [address] Pharmacist Internal Medicine 12/10/22 04/30/23 Antoinette Liu, BriandaD [address] [place] [address] Pharmacist Internal Medicine 05/01/23 01/03/25 documented as of this encounter
--- OUTSIDE RECORDS SUMMARY | 2025-08-16 11:20 | XMS_ITS | Encounter Summary ---
Author Organization [employer] Address [address] [place] [address] 7[address] [place] [address] Care Team Providers Care Transmitter Tester Name Role Phone Casie Angulo DO Primary Care Provider + [phone] Alvin Caldera PharmD Unavailable Unavail able Antoinette Liu PharmD Unavailable [phone] Encounter Details Date Type Department Care Team (Late st Contact Info) Description 10/08/2022 Orders Only [facility] [address] [place], [place] [phone] Casie Pinedo LPN Social History Tobacco Use [...] on filedocumented in this encounter Care Teams Transmitter Tester Relationship Specialty Start Date End Date Casie Angulo DO [address] [place] [address] PCP - General Family Medicine 08/25/18 Alvin Caldera, PharmD [address] [place] [address] Pharmacist Internal Medicine 12/10/22 04/30/23 Antoinette Liu, PharmD [address] [place] [address] Pharmacist Internal Medicine 05/01/23 01/03/25 documented as of this encounter
--- OUTSIDE RECORDS SUMMARY | 2025-08-16 11:20 | XMS_ITS | Encounter Summary ---
Author Organization [employer] Address [address] [place] [address] [address] [place] [address] Care Team Providers Care Cash Reconciliation Specialist Name Role Phone Casie Angulo DO Primary Care Provider + [phone] Antoinette Liu PharmD Unavailable [phone] Reason for Visit * Reason Onset Date Comments Nurse Triage 07/28/2023 Encounter Details Date Type Department Care Team ([facility] st Contact Info) Description 07/28/2023 Telephone [facility] [address] [place], [place] [phone] Casie Angulo DO [address] [place], [place] [phone] Nurse Triage Social History Tobacco Use Types [...] documented as of this encounter Care Teams Cash Reconciliation Specialist Relationship Specialty Start Date End Date Casie Angulo DO [address] [place] [id number] PCP - General Family Medicine 08/25/18 Antoinette Liu, Torri [address] [place] [address] Pharmacist Internal Medicine 05/01/23 01/03/25 documented as of this encounter
--- OUTSIDE RECORDS SUMMARY | 2025-08-16 11:20 | XMS_ITS | Encounter Summary ---
Author Organization [employer] Address [address] [place] [address] [address] [place] [address] Care Team Providers Care Build Master Name Role Phone Casie Angulo DO Primary Care Provider + [phone] Alvin Caldera PharmD Unavailable Unavail able Antoinette Liu PharmD Unavailable [phone] Encounter Details Date Type Department Care Team (Late st Contact Info) Description 09/19/2022 Orders Only [facility] [address] [place] [address] Whitney James LPN Social History Tobacco Use [...] on filedocumented in this encounter Care Teams Build Master Relationship Specialty Start Date End Date Casie Angulo DO [address] [place] [address] PCP - General Family Medicine 08/25/18 Alvin Caldera, PharmD [address] [place] [id number] Pharmacist Internal Medicine 12/10/22 04/30/23 Antoinette Liu, PharmD [address] [place] [address] Pharmacist Internal Medicine 05/01/23 01/03/25 documented as of this encounter
--- OUTSIDE RECORDS SUMMARY | 2025-08-16 11:20 | XMS_ITS | Clinical Summary ---
Author Organization [employer] Address [address] [place] [address] [address] [place] [address] Care Team Providers Care Loan Closer Name Role Phone Casie Angulo Primary Care Provider + [phone] Allergies No known active allergies Medications Blood Glucose Monitoring Suppl (FreeStyle Lite) w/Device kit USE TO CHECK BLOOD GLUCOSE 2 TIMES EVERY DAY 2 Active Linzess 290 MCG capsule TAKE 1 CAPSULE (290 MCG ) BY MOUTH EVERY MORNING 3 Active Bisacodyl EC 5 MG EC tablet Take 10 mg by mouth at bedtime. 3 Active FreeStyle lancetsIndicati ons:Type 2 diabetes mellitus [...] complication, without long-term current use of insulin ([facility]) USE 1 SWAB TOPICALLY 2 TIMES EVERY DAY 100 each 4 Active cholecalciferol (Vitamin D-3) 50 MCG (1999 UT) capsuleIndicati ons:Vitamin D deficiency Take 1 capsule (50 mcg) by mouth Once per day. 30 capsule 11 4 Active polycarbophil (Fibercon) 625 MG tablet Take 1 tablet (625 mg) by mouth 2 times daily. 180 tablet 3 5 09/01/19 26 Active docusate sodium (Colace) 100 MG capsule Take 1 capsule (100 mg) by mouth 2 times daily. 180 capsule 3 5 10/01/19 Active polyethylene glycol, PEG, 3350 (MiraLax) [...] doses. 20 tablet 5 Active Junel FE 1.5/30 1.5-30 MG-MCG tablet [...] 90 capsule 3 5 11/25/19 26 Active Sodium Fluoride 1.1 % creamIndication s:Dental caries [place] teeth for 2 minutes, morning and night. Spit, do not rinse. Do not eat or drink anything for 30 minutes following use. 112 g 3 5 Active Semaglutide,0.2 5 or 0.5MG/DOS, (Ozempic, 0.25 or 0.5 MG/DOSE,) 2 MG/3ML solution pen-injectorInd ications:Type 2 diabetes mellitus without complication, without long-term current use of insulin (HCC) Inject 0.5 mg under the skin 1 (one) time per week. 3 mL 11 5 Active cetirizine (ZyrTEC) 10 MG tablet Take 1 tablet (10 mg) by mouth Once per day. 90 tablet 3 5 06/29/20 26 Active diphenhydrAMINE (BENADryl) 25 MG tablet Take 1 tablet (25 mg) by mouth every 6 (six) hours if needed for itching. 30 tablet 1 5 Active acetaminophen (Tylenol 8 Hour) 650 MG ER tablet Take 1 tablet (650 mg) by mouth every 8 (eight) hours if needed for mild pain or moderate pain. Do not crush, chew, or split. 40 tablet 1 5 07/29/20 25 Active Problems Problem Noted Date Diagnosed Date Chronic gastroesophageal reflux disease 06/29/20 25 Controlled type 2 diabetes m ellitus with diabetic neuropathy 05/11/2025 Assessment & Plan [...] Diagnosed Date Resolved Date Missing teeth, acquired 04/07/20240 12/2024 Neuropathy 01/28/2024 02/23/2024 Left upper quadrant abdominal pain 10/16/2023 11/19/2023 Assessment & Plan (10/16/2023 9:35 AM EST): May be related to constipation/IBS. Unclear if exacerbated by meds like metformin and Trulicity. Given worsening of Sx I advised pt to come get examined today at [facility] Will repeat labs due to Hx of leukocytosis and r/o UA Recommended to hold Metformin x 2 days and see if Sx improved Unclear if related to pelvic congestion syndrome Recommend to be seen in the [facility] due to nasal congestion and other Sx, may needs to be tested for viral diseases, ei. covid and flu Acute frontal sinusitis 06/03/202302/2024 Low-lying placenta 11/27/2022 AMA (advanced maternal age) multigravida 35+ 3 11/27/2022 Depression 10/16/2022 12/18/2022 Smoker 10/16/2022 11/27/2022 Body aches 07/29/2018 11/27/2022 Alopecia 07/25/2015 12/18/2022 Chronic migraine 07/25/2015 10/01/2023 Encounters Date Type Department Care Team Description 06/30/2025 Results Follow-Up [facility] [address] [place] [phone] Casie Angulo DO XR Facial Bones 3+ Views 06/29/2025 11:00 AM EST Office Visit [facility] MED[facility] [address] [place] [phone] Casie Angulo DO Type 2 diabetes mellitus without complication, without long-term current use of insulin (HCC) (Primary Dx); Other hyperlipidemia; Chronic allergic rhinitis; Chronic gastroesophageal reflux disease; Chronic constipation; Pelvic congestion syndrome; Paresthesia of left arm and leg; Facial pain; Facial rash; Palpitations; Healthcare maintenance; Dietary counseling; Exercise counseling 06/29/2025 Travel 06/28/2025 Telephone [facility] [address] [place] [phone] Casie Angulo DO Chart Prep 06/23/2025 Telephone [facility] [address] [place], [place] [phone] Casie Angulo DO Recall Appointment 06/23/2025 Travel 06/20/2025 9:00 AM EDT Office Visit [facility] [address] [place] [phone] Levon Beckham, DMD Alveolar osteitis (Primary Dx) 06/16/2025 11:00 AM EDT Office Visit [facility] [address] [place] [address] Raul Chaidez, DDS 06/07/2025 Telephone [facility] [address] [place], [place] [phone] Phuong Vivar NP from Last 3 Months Immunizations Immunization Administration [...] series) 1998 Mammogram 2023 COVID-19 Vaccine ( season) 2025 11/30/2021, 07/02/2021, 06/11/2021 Influenza Vaccine (#1) 2025 06/30/2019 Dental Oral Exam 11/09/2025 05/11/2025, 04/07/2024 Dental Prophylaxis 11/09/2025 05/11/2025, 04/07/2024 SDOH Screening 11/17/2025 11/17/2024 Depression Monitoring 12/28/2025 [...] Urine Protein Screening 07/07/2026 07/07/2025, 06/28/2022, 01/23/2021 Lipid Panel 07/07/2026 07/07/2025, 10/24, 09/19/2023, Additional history exists Dental X-Ray: Full Mouth 04/08/2027 04/07/2024, 02/22 [...] 49) Years Completed 06/04/2024 HIV Screening Completed 07/07/2025, 10/24, 09/19/2023, Additional history exists Hepatitis C Screening Completed 07/07/2025 , 11/17/2024, 09/19/2023, Additional history exists HIB Vaccines Aged Out [...] 6.6( 10:53 AM EST) No Alvin Caldera PharmMerissa Record your blood sugar as directed Result Component No Antoinette Liu PharmD Note: Encouraged patient to increase frequency of SMBG monitoring to guide tx modification. Procedures Procedure Name Priority Date/Time Associated Diagnosis Comments SED RATE BY MODIFIED WESTERGREN Routine 07/07/2025 10:53 AM EST Type 2 diabetes mellitus without complication, without long-term current use of insulin (HCC) Other hyperlipidemia Chronic allergic rhinitis Chronic gastroesophageal reflux disease Chronic constipation Pelvic congestion syndrome Paresthesia of left arm and leg Healthcare maintenance Facial pain Facial rash Palpitations HEPATITIS B SURFACE ANTIBODY, QUALITATIVE Routine 07/07/2025 10:53 AM EST Type 2 diabetes mellitus without complication, without long-term current use of insulin (HCC) Other hyperlipidemia Chronic allergic rhinitis Chronic gastroesophageal reflux disease Chronic constipation Pelvic congestion syndrome Paresthesia of left arm and leg Healthcare maintenance Facial pain Facial rash Palpitations RPR (MONITOR) W/REFL TITER Routine 07/07/2025 10:53 AM EST Type 2 diabetes mellitus without complication, without long-term current use of insulin (HCC) Other hyperlipidemia Chronic allergic rhinitis Chronic gastroesophageal reflux disease Chronic constipation Pelvic congestion syndrome Paresthesia of left arm and leg Healthcare maintenance Facial pain Facial rash Palpitations HEPATITIS C AB W/REFL TO HCV RNA, QN, PCR Routine 07/07/2025 10:53 AM EST Type 2 diabetes mellitus without complication, without long-term current use of insulin (HCC) Other hyperlipidemia Chronic allergic rhinitis Chronic gastroesophageal reflux disease Chronic constipation Pelvic congestion syndrome Paresthesia of left arm and leg Healthcare maintenance Facial pain Facial rash Palpitations HIV 1/2 ANTIGEN/ANTIBODY, FOURTH GENERATION W/RFL Routine 07/07/2025 10:53 AM EST Type 2 diabetes mellitus without complication, without long-term current use of insulin (HCC) Other hyperlipidemia Chronic allergic rhinitis Chronic gastroesophageal reflux disease Chronic constipation Pelvic congestion syndrome Paresthesia of left arm and leg Healthcare maintenance Facial pain Facial rash Palpitations HEPATITIS B SURFACE ANTIGEN, EIA Routine 07/07/2025 10:53 AM EST Type 2 [...] Healthcare maintenance Facial pain Facial rash Palpitations TSH Routine 07/07/2025 10:53 AM EST Type 2 [...] Healthcare maintenance Facial pain Facial rash Palpitations VITAMIN D,25-OH,TOTAL,IA Routine 07/07/2025 10:53 AM EST Type 2 diabetes mellitus without complication, without long-term current use of insulin (HCC) Other hyperlipidemia Chronic allergic rhinitis Chronic gastroesophageal reflux disease Chronic constipation Pelvic congestion syndrome Paresthesia of left arm and leg Healthcare maintenance Facial pain Facial rash Palpitations T4, FREE Routine 07/07/2025 10:53 AM EST Type 2 [...] without long-term current use of insulin (HCC) Paresthesia of left arm and leg C-REACTIVE PROTEIN Routine 07/07/2025 10 :53 AM EST Paresthesia of left arm and leg RHEUMATOID FACTOR Routine 07/07/2025 10: 53 AM EST Paresthesia of left arm and leg LYME DISEASE AB W/REFL TO BLOT (IGG, IGM) Routine 07/07/2025 10:53 AM EST Paresthesia of left arm and leg RUFINA SCREEN, IFA, W/REFL TITER AND PATTERN Routine 07/07/2025 10:53 AM EST Paresthesia of left arm and leg VITAMIN B12/FOLATE, SERUM PANEL Routine 07/07/2025 10:53 AM EST Paresthesia of left arm and [...] current use of insulin (HCC) POCT GLUCOSE (CPT-40339) Routine 06/29/2025 11:18 AM EST Type 2 [...] (ELEVATION/FORCEPS REMOVAL) Routine 06/16/2025 11:00 AM EDT PROPHYLAXIS - ADULT Routine 05/11/2025 1 :00 PM EDT Dental caries PERIODIC ORAL EVALUATION - ESTABLISHED PATIENT Routine 05/11/2025 1:00 PM EDT Dental caries INTRAORAL - COMPLETE SERIES OF RADIOGRAPHIC IMAGES Routine 04/07/2024 10:00 AM EDT Gingivitis due to dental plaque with local contributing factor Dental caries Missing teeth, acquired HM PAP/HPV Routine 04/14/2023 from Last 3 Months or Most Recently Relevant to Health Maintenance Results * (ABNORMAL) Vitamin D, 25-Hydroxy, Total, Immunoassay (07/07/2025 10:53 AM EST) Vitamin D 25-OH Total 29.8(L) >30 ng/mL [facility] Comment: Health Based Reference Values*< 20 ng/mL Aoghongzc43-01 ng/mL Insufficient> 30 ng/mL Sufficient*Melissa MCCORMICK. N Engl J Med. 2007;[id number] is [...] Vitamin D results fromdifferent laboratories and methodologies. Published datademonstrated that results from patients undergoinghemodialysis may show a negative bias when tested withvarious automated 25-OH vitamin D assays when compared toLC-MS/MS.When testing samples from patients whose predominant form ofVitamin D is Vitamin D2, such as patients receiving VitaminD2 supplementation, results that are subtherapeutic shouldbe confirmed with another method such as LC-MS/MS. Blood Venous blood specimen / Unknown 07/07/2025 10:53 AM EST 07/07/2025 10:53 AM EST us Casie Angulo DO LAB BLOOD ORDERABLES Final R esult [facility] [address] [place] [phone] * (ABNORMAL) Vitamin B12 (Cobalamin) and Folate Panel, Serum (07/07/2025 10:53 AM EST) Pathologist [facility] Vitamin B12 1,796(H) 200 - 900 pg/mL [facility] Comment:NORMAL 200-900 PG/ML INDETERMINATE 160-199 PG/ML DEFICIENT < 160 PG/ML Folate 12.0 > or = 4.0 ng/mL [facility] Comment:Reference Values:> o r = 4.0 ng/mL< 4.0 ng/mL suggests folate deficiency Methotrexate, aminopterin and folinic acid(leucovorin) are chemotherapeutic agents whose molecularstructures are similar to folate; therefore, the Architectfolate assay cannot be used for patients using these drugs. Blood 07/07/2025 10:5 3 AM EST 07/07/2025 10:53 AM EST Casie Angulo DO LAB BLOOD ORDERABLES Final R esult [facility] [address] [place] [phone] [phone] * Lyme Disease Ab with Reflex to Blot (IgG, IgM) (07/07/2025 10:53 AM EST) [facility] Lyme Antibody Screen <0.90 index [facility] Comment:Index Interpretation ----- < 0.90 Negative 0.90-1.09 Equivocal > 1.09 PositiveAs recommended by the Food and Drug Administration(FDA), all samples with positive or equivocalresults in a Borrelia burgdorferi antibody screenwill be tested using a blot method. Positive orequivocal screening test results should not beinterpreted as truly positive until verified as suchusing a supplemental assay (e.g., B. burgdorferi blot).The screening test and/or blot for B. burgdorferiantibodies may be falsely negative in early stagesof Lyme disease, including the period when erythemamigrans is apparent.THIS TEST WAS PERFORMED AT:[facility] [address] [phone] BUSTOS MD Lyme Blot TNP [facility] 07/07/2025 10:5 3 AM EST 07/07/2025 10:53 AM EST us Casie Angulo DO LAB BLOOD ORDERABLES Final R esult Performing Organization Address City/[facility]/ZIP Co de Phone Number [facility] [address] [place] [phone] * Hepatitis C Antibody with Reflex to HCV, RNA, Quantitative, Real-Time PCR (07/07/2025 10:53 AM EST) Hepatitis C Antibody Nonreactive Nonreactive [facility] Comment:Antibodies to HCV no t detected; does not exclude early acuteHCV infection. Blood Venous blood specimen / Unknown 07/07/2025 10:53 AM EST 07/07/2025 10:53 AM EST us Casie Angulo DO LAB BLOOD ORDERABLES Final R esult Performing Organization Address [facility] Co de Phone Number [facility] [address] [place] [phone] * Hepatitis B surface antigen, EIA (07/07/2025 10:53 AM EST) Hepatitis B Surface Ag Negative Negative [facility] Blood Venous blood specimen / Unknown 07/07/2025 10:53 AM EST 07/07/2025 10:53 AM EST us Casie Angulo DO LAB BLOOD ORDERABLES Final R esult Performing Organization Address [facility] Co de Phone Number [facility] [address] [place] [phone] * RPR (Monitor) with Reflex to??Titer (07/07/2025 10:53 AM EST) RPR (Monitor) w/Refl Titer NON-REACTI VE NON-REACT DIANA [facility] Comment:THIS TEST WAS PERFOR MED AT:[facility] [place] [phone] BUSTOS MD Rapid Plasma Reagin Ab Titer TNP [facility] Blood Venous blood specimen / Unknown 07/07/2025 10:53 AM EST 07/07/2025 10:53 AM EST us Casie Angulo DO LAB BLOOD ORDERABLES Final R esult [facility] [address] [place] [phone] * HIV-1/2 Antigen and Antibodies, Fourth Generation, with Reflexes (07/07/2025 10:53 AM EST) HIV AB/AG Nonreactive Nonreactive [facility] Comment:HIV-1 p24 Ag and/or HIV-1/HIV-2 Ab not detected.A test result that is nonreactive does not exclude thepossibility of exposure to or infection with HIV-1 and/orHIV-2. Nonreactive results in this assay for individualswith prior exposure to HIV-1 and/or HIV-2 may be due toantigen and antibody levels that are below the limit ofdetection of this assay.The Bapul HIV Ag/Ab Combo assay result andsupplemental assay results should be interpreted inconjunction with the patient's clinical presentation,history and other laboratory results. If the results areinconsistent with clinical evidence, additional testing issuggested to confirm the result. Blood Venous blood specimen / Unknown 07/07/2025 10:53 AM EST 07/07/2025 10:53 AM EST us Casie Angulo DO LAB BLOOD ORDERABLES Final R esult [facility] [address] [place] [phone] * Hepatitis B Surface Antibody, Qualitative (07/07/2025 10:53 AM EST) Pathologist [facility] ~Hepatitis B Surface Antibody REACTIVE Nonreactive [facility] Comment:REACTIVE: > 11.99 mI U/mL Blood Venous blood specimen / Unknown 07/07/2025 10:53 AM EST 07/07/2025 10:53 AM EST us Casie Angulo DO LAB BLOOD ORDERABLES Final R esult [facility] [address] [place] [phone] * Sed Rate by Modified Budergren (07/07/2025 10:53 AM EST) Pathologist [facility] Erythrocyte Sedimentation Rate 20 0 - 20 MM/HR [facility] Comment:Patients with polycy themia and many hemoglobin abnormalitiesmay have depressed sed rates whereas patients with anemiamay have elevated sed rates. Blood Venous blood specimen / Unknown 07/07/2025 10:53 AM EST 07/07/2025 10:53 AM EST us Casie Angulo DO LAB BLOOD ORDERABLES Final R esult Performing Organization Address City/[facility]/ZIP Co de Phone Number [facility] [address] [place] [phone] * CBC (07/07/2025 10:53 AM EST) Pathologist [facility] White Blood Count 8.5 4.8 - 10.8 X10*3/uL [facility] Red Blood Count 4.23 4.20 - 5.50 X10*6/uL [facility] Hemoglobin 13.0 12.0 - 16.0 g/dl [facility] Hematocrit 39.1 37.0 - 47.0 % [facility] Mean Corpuscular Volume 92.4 80.0 - 98.0 fL [facility] Mean Corpuscular Hemoglobin 30.7 27.0 - 33.0 pg [facility] Mean Corpuscular HGB Conc 33.2 31.0 - 35.0 g/dl [facility] Red Cell Distribution Width 12.9 11.0 - 16.0 % [facility] Platelet Count 359 160 - 400 X10*3/uL [facility] Mean Platelet Volume 9.4 9.4 - 12.3 fL [facility] NRBC Pct Auto 0.0 0.0 - 0.2 /100WBC [facility] NRBC Abs Auto 0.000 0.0 - 0.012 X10*3/uL [facility] Blood Venous blood specimen / Unknown 07/07/2025 10:53 AM EST 07/07/2025 10:53 AM EST Casie Angulo LAB BLOOD ORDERABLES Final R esult Performing Organization Address [facility] de Phone Number [facility] [address] [place] [phone] * Rheumatoid Factor (07/07/2025 10:53 AM EST) Rheumatoid Factor <13.0 <15.0 IU/mL [facility] Blood Venous blood specimen / Unknown 07/07/2025 10:53 AM EST 07/07/2025 10:53 AM EST Casie Angulo LAB BLOOD ORDERABLES Final R esult Performing Organization Address [facility] Co de Phone Number [facility] [address] [place] [phone] * C-reactive Protein (07/07/2025 10:53 AM EST) C Reactive Protein 0.47 < or = 0.50 mg/dL [facility] Blood Venous blood specimen / Unknown 07/07/2025 10:53 AM EST 07/07/2025 10:53 AM EST us Casie Kev DO LAB BLOOD ORDERABLES Final R esult Performing Organization Address City/[facility]/ZIP Co de Phone Number [facility] [address] [place] [phone] * RUFINA Screen,IFA, with Reflex to Titer and Pattern (07/07/2025 10:53 AM EST) Anti Nuclear Antibody Screen NEGATIVE NEGATIVE [facility] Comment:RUFINA IFA is a first l ine screen for detecting thepresence of up to approximately 150 autoantibodies invarious autoimmune diseases. A negative RUFINA IFA resultsuggests an RUFINA-associated autoimmune disease is notpresent at this time, but is not definitive. If thereis high clinical suspicion for Sjogren's syndrome,testing for anti-SS-A/Ro antibody should be considered.Anti-Anna-1 antibody should be considered for clinicallysuspected inflammatory myopathies.AC-0: NegativeInternational Consensus on RUFINA Patterns(https://doi.org/10.1515/xsff-5090-7975)For additional information, please refer tohttp://education.GameFly/faq/XIF850(This link is being provided for informational/educational purposes only.)THIS TEST WAS PERFORMED AT:[facility] [place] [phone] BUSTOS MD RUFINA Titer TNP [facility] RUFINA Pattern [facility] RUFINA T[facility] 2 [facility] RUFINA Pattern 2 [facility] RUFINA TITER 3 [facility] RUFINA PATTERN 3 [facility] Blood Venous blood specimen / Unknown 07/07/2025 10:53 AM EST 07/07/2025 10:53 AM EST us Casie Angulo DO LAB BLOOD ORDERABLES Final R esult Performing Organization Address [facility]/ZIP Co de Phone Number [facility] [address] [place] [phone] * TSH (07/07/2025 10:53 AM EST) Thyroid Stimulating Hormone 0.96 0.32 - 4.0 uIU/mL [facility] Comment:TSH 3rd Generation ( [facility]) Blood Venous blood specimen / Unknown 07/07/2025 10:53 AM EST 07/07/2025 10:53 AM EST Casie Goveaeliezer DO LAB BLOOD ORDERABLES Final R esult [facility] [address] [place] [phone] * T4, Free (07/07/2025 10:53 AM EST) Free T4 (Free Thyroxine) 1.11 0.71 - 1.85 ng/dL [facility] Blood Venous blood specimen / Unknown 07/07/2025 10:53 AM EST 07/07/2025 10:53 AM EST Casie Kev DO LAB BLOOD ORDERABLES Final R esult Performing Organization Address City/[facility] Co de Phone Number [facility] [address] [place] [phone] * (ABNORMAL) Hemoglobin A1c (07/07/2025 10:53 AM EST) Hemoglobin A1c 6.6(H) <6.0 % [facility] Comment:Hemoglobin A1C Refer ence Range Adults: 4.8 - 6.0 % Non diabetic: < 6.0 % Goal: < 7.0 %Additional Action Suggested: > 8.0 %Note: Hemoglobin A1c results are invalid for patients with abnormal amounts of HbF. Blood transfusions may impact the HbA1c concentration in the patient sample. Estimated Average Glucose 143 mg/dL [facility] Comment:eAG = Estimated ave rage glucose which is %A1C expressed asaverage glucose, using the formula of the O4U-[id number] Glucose study (ADAG), Diabetes Care, Vol.31,#8,2007 Blood Venous blood specimen / Unknown 07/07/2025 10:53 AM EST 07/07/2025 10:53 AM EST Casie Kev DO LAB BLOOD ORDERABLES Final R esult Performing Organization Address City/[facility] Co de Phone Number [facility] [address] [place] [address] [phone] * (ABNORMAL) Hepatic Function Panel (07/07/2025 10:53 AM EST) Bilirubin, Total 0.6 0.0 - 1.0 mg/dL [facility] Bilirubin, Direct 0.2 0.0 - 0.5 mg/dL [facility] Aspartate Amino Transferase 28 5 - 31 U/L [facility] Alanine Aminotransferase 40(H) 0 - 31 U/L [facility] Total Protein 7.6 6.5 - 8.0 g/dL [facility] Albumin Level 4.7 3.5 - 5.0 g/dL [facility] Alkaline Phosphatase 81 39 - 117 U/L [facility] Blood Venous blood specimen / Unknown 07/07/2025 10:53 AM EST 07/07/2025 10:53 AM EST Casie Angulo DO LAB BLOOD ORDERABLES Final R esult Performing Organization Address City/[facility]/ZIP Co de Phone Number [facility] [address] [place] [address] [phone] * Lipid Panel, Standard (07/07/2025 10:53 AM EST) Triglycerides 73 <150 mg/dL [facility] Comment:Desirable Triglyceri de: less than 150 mg/dLBorderline High Triglyceride 150-199 mg/dLHigh Triglyceride: 200-499 mg/dLVery High Triglyceride: greater than or equal to 5OO mg/dL Cholesterol 162 <200 mg/dL [facility] Comment:Desirable Cholestero l: less than 200 mg/dLBorderline High Cholesterol: 200-239 mg/dLHigh Cholesterol: greater than 239 mg/dL LDL Cholesterol Calculated 99 <100 mg/dL [facility] Comment:Desirable LDL: less than 100 mg/dLNear Optimal/Above Optimal LDL: 110- 129 mg/dLBorderline High LDL: 130-159 mg/dLHigh LDL: 160-189 mg/dLVery High LDL: greater than or equal to 190 mg/dL HDL Cholesterol 49 >40 mg/dL [facility] Comment:Desirable HDL: great er than 40 mg/dL Note: This HDL assay may give artificially low results in patients with liver disease. Blood Venous blood specimen / Unknown 07/07/2025 10:53 AM EST 07/07/2025 10:53 AM EST us Casie Angulo DO LAB BLOOD ORDERABLES Final R esult [facility] [address] [place] [phone] * (ABNORMAL) Basic Metabolic Panel (07/07/2025 10:53 AM EST) Sodium 139 135 - 145 mmol/L [facility] Potassium 4.2 3.3 - 5.1 mmol/L [facility] Chloride 104 96 - 108 mmol/L [facility] Carbon Dioxide 28 22 - 29 mmol/L [facility] Anion Gap 11(L) 12 - 20 [facility] Urea Nitrogen (BUN) 13 9 - 16 mg/dL [facility] Creatinine, Serum 0.62 0.5 - 1.4 mg/dL [facility] Estimated Glomerular Filt Rate >60 [facility] Comment:Chronic Kidney Disea se: Estimated GFR < 60 mL/min/1.85y3Krhzik Kidney Disease: Estimated GFR < 15 mL/min/1.73m2 Glucose 156(H) 60 - 115 mg/dL [facility] Calcium 9.2 8.4 - 10.2 mg/dL [facility] Blood Venous blood specimen / Unknown 07/07/2025 10:53 AM EST 07/07/2025 10:53 AM EST us Casie Kev DO LAB BLOOD ORDERABLES Final R esult Performing Organization Address [facility] de Phone Number [facility] [address] [place] [phone] * Albumin, Random Urine W/Creatinine (07/07/2025 10:43 AM EST) Creatinine, Urine 31.78 mg/dL [facility] Microalbumin Urine 6.0 mg/L [facility] Microalbum Creatinine Ratio Ur 18.8 <30 ug/mg cr [facility] Comment:Albumin/Creatinine R atio Reference Ranges: Normal: < 30 ug/mg creatinine Microalbuminuria: 30 - 300 ug/mg creatinineClinical Albuminuria: > 300 ug/mg creatinine Urine (Urine, Random) 07/07/2025 10:43 AM EST 07/07/2025 11:26 AM EST us Casie Angulo DO LAB URINE ORDERABLES Final R esult Performing Organization Address [facility] de Phone Number [facility] [address] [place] [phone] * XR Facial Bones 3+ Views (06/29/2025 12:10 PM EST) Anatomical Region Laterality Modality Head, Neck, Facial bones Radiogr aphic Imaging 06/29/2025 12:1 0 PM EST Narrative 06/29/2025 1:33 PM EST [facility] [address] [place] [address] XRay Report Signed Patient: Casie Maki MR#: [id number] : 1985 Acct:[id number] Age/Sex: 40 / F ADM Date: 06/29/25 [facility] Dr: Casie Angulo DO Ordering Physician: Casie Angulo DO Date of Service: 06/29/25 Procedure(s): XR facial bones min 3V Accession Number(s): [id number] cc: Casie Angulo DO Reason for Exam: [...] by: Issac Wilson MD 06/29/2025 01:30 PM [facility] Dictated By: Issac Mancini MD Signed By: <Electronically signed by Issac Sy MD in OV> 06/29/25 1330 DD/ 1210 TD/TT: 06/29/25 1220 Weather Clerk: Procedure Note Donotuseinterpreter, Image - 06/29/2025 [place] [address] XRay Report Signed Patient: Casie MakiMR#: [id number] : 1985Acct:[id number] Age/Sex: 40 / FADM Date: 06/29/25 Loc: [facility] Attending Dr: Casie Angulo DO Ordering Physician: Casie Angulo DO Date of Service: 06/29/25 Procedure(s): XR facial bones min 3V Accession Number(s): [id number] cc: Casie Angulo DO Reason for Exam: [...] 06/29/25 1330 DD/ 1210 TD/TT: 06/29/25 1220 Weather Clerk: Casie Angulo DO IMG XR PROCEDURES Final [...] Media Lot # [id number] Lot# Expiration Date [id number] Blood Capillary blood specimen / Unknown 06/29/2025 11:18 AM EST Casie Angulo DO POINT OF CARE TEST ENTER/ANASTASIYA T ORDERABLES Final Result * Hm Pap Smear (04/14/2023) Pap Negative for intraephithelial lesion or malignancy Negative for intraephithelial lesion or malignancy, Other HPV Not Detected Undetected, Indeterminate, Quantitative, Not Detected Historical Provider HEALTH MAINTENANCE Final Result from Last 3 Months or Most Recently Relevant to Health Maintenance Insurance [facility] - [facility] FULL (MEDICAID) Care Teams Loan Closer Relationship Specialty Start Date End Date Casie Angulo DO [address] [place] [phone] PCP - General Family Medicine 08/25/18
--- OUTSIDE RECORDS SUMMARY | 2025-08-16 11:20 | XMS_ITS | Encounter Summary ---
Author Organization [employer] Address [address] [place] [address] Care Team Providers Care School Photographer Name Role Phone StellaCasie fine Primary Care Provider + [phone] Antoinette Liu PharmD Unavailable [phone] Reason for Visit * Reason Onset Date Comments unable to post insurance 11/03/2024 Encounter Details Date Type Department Care Team ([facility] st Contact Info) Description 11/03/2024 Telephone [facility] [address] [place] [address] Nicole Lozano DDS unable to post insurance [...] post HSN insurance portal not running on [employer] * Telephone Encounter - Nancie Mccann - [...] documented as of this encounter Care Teams School Photographer Relationship Specialty Start Date End Date Casie Angulo DO [address] [place] [address] PCP - General Family Medicine 08/25/18 Antoinette Liu, Torri [address] [place] [address] Pharmacist Internal Medicine 05/01/23 01/03/25 documented as of this encounter
--- OUTSIDE RECORDS SUMMARY | 2025-08-16 11:20 | XMS_ITS | Encounter Summary ---
Author Organization [employer] Address [address] [place] [address] 7[address] [place] [address] Care Team Providers Care Hydraulic Engineer Name Role Phone Casie Angulo DO Primary Care Provider + [phone] Alvin Caldera PharmD Unavailable Unavail able Antoinette Liu PharmD Unavailable [phone] Reason for Visit * Reason Comments Med Refill Encounter Details Date Type Department Care Team (Late st Contact Info) Description 02/06/2023 Refill [facility] [address] [place] [address] Casie Angulo DO [address] [place] [address] Social History Tobacco Use Types Packs/Day Years [...] documented as of this encounter Care Teams Hydraulic Engineer Relationship Specialty Start Date End Date Casie Angulo DO [address] [place] [address] PCP - General Family Medicine 08/25/18 Alvin Caldera, PharmD [address] [place] [phone] Pharmacist Internal Medicine 12/10/22 04/30/23 Antoinette Liu PharmD [address] [place] [phone] Pharmacist Internal Medicine 05/01/23 01/03/25 documented as of this encounter
== END 2025-08-16 10:54 | disposition home or self-care (01) ==
LOC: HO.HSM 10:15
PROVIDERS: PCP Family Medicine; Visit Provider Psychiatry & Neurology Neurology
DX: R90.82 White matter disease, unspecified (principal); G37.9 Demyelinating disease of central nervous system, unspecified; G44.209 Tension-type headache, unspecified, not intractable
CPT/HCPCS: 99205

== ENCOUNTER → 2025-08-16 10:14 | Outpatient (BNVA) | payer OTHER, SELFPAY | PROVIDERS: PCP Family Medicine; Visit Provider Psychiatry & Neurology Neurology | DX: G37.9 Demyelinating disease of central nervous system, unspecified (principal); G44.209 Tension-type headache, unspecified, not intractable; R90.82 White matter disease, unspecified | CPT/HCPCS: 99202 ==

== ENCOUNTER 2025-08-16 11:01 | Emergency (ER) | payer OTHER, SELFPAY ==
--- NOTE | ~2025-08-16 | CT_ITS ---
EXAMINATION: CT ABDOMEN AND PELVIS WITH CONTRAST CLINICAL INFORMATION: Generalized abdominal pain COMPARISON: 09/25/2024 TECHNIQUE: Multidetector volumetric images were obtained from the superior aspect of the liver through the pubic symphysis following administration 85 mL of Omnipaque 350 intravenous contrast. Sagittal and coronal reformatted images were obtained on the technologist's workstation. Oral contrast: No This CT examination was performed using dose optimization techniques as appropriate, variously including the following: *Automated exposure control *Adjustment of mA and/or kV according to patient size (this includes techniques or standardized protocols for targeted exams where dose is matched to indication/reason for exam; i.e. extremities or head) *Use of iterative reconstruction technique FINDINGS: LUNG BASES: The visualized lung bases are unremarkable. LIVER, GALLBLADDER, AND BILIARY TREE: The liver is normal in size, shape, and attenuation. No focal hepatic lesion or biliary ductal dilatation is present. The gallbladder is unremarkable with no evidence of radiopaque gallstones, gallbladder wall thickening, or obvious pericholecystic inflammatory changes. PANCREAS: Unremarkable. SPLEEN: Unremarkable. ADRENAL GLANDS: Unremarkable. KIDNEYS AND URETERS: The kidneys are normal in size, shape, and attenuation. No hydronephrosis, hydroureter, or calculi seen. No perinephric stranding. BLADDER: There is a small bubble of gas in the nondependent bladder. GASTROINTESTINAL TRACT: The small and large bowel are unremarkable. The appendix is not demonstrated on the current or most recent prior. ABDOMINAL WALL: Very small umbilical hernia contains adipose tissue. LYMPH NODES: Normal. VASCULAR: Mild vascular calcifications are present in the distal abdominal aorta PELVIC VISCERA: Unremarkable. OSSEOUS STRUCTURES: Unremarkable. CT/CT abdomen pelvis w IV con IMPRESSION: No acute abnormality to explain the patient's abdominal pain There is a small bubble of gas in the bladder. Correlate for history of recent catheterization. Otherwise, consider possible etiologies such as enteric or vaginal fistula, or gas-forming organisms. Fleischner guidelines were followed. Electronically signed by: Joey Cotter MD 08/16/2025 04:39 PM EST
[2025-08-16 11:22] VITALS: BP 107/57; PULSE 87; RESP 18; TEMP 36.4; O2SAT 97; BMI 33.5
--- NOTE | 2025-08-16 11:26 | ECG_ITS ---
Test Reason : abdominal pain Blood Pressure : */* mmHG Vent. Rate : 85 BPM Atrial Rate : 85 BPM P-R Int : 172 ms QRS Dur : 92 ms QT Int : 358 ms P-R-T Axes : 8 20 18 degrees QTcB Int : 426 ms Normal sinus rhythm Normal ECG When compared with ECG of 07-May-2025 12:22, No significant change was found Referred By: Alexander Ricketts Electronically Signed By: CHERELLE LANG MD
--- NOTE | 2025-08-16 11:27 | ED.GENADULT ---
HPI - General Adult General Chief complaint: Abdominal Pain Stated complaint: Diarrhea, ABD Pain Time Seen by Provider: 08/16/25 14:58 History of Present Illness ED Provider: Jacquelyn Horn NP HPI narrative: 40-year-old female medical history significant for tension headache, diabetes type 2, precordial chest pain, constipation, hemorrhoids, pelvic varices, presents to the ED for evaluation of generalized abdominal pain and cramping ongoing for about 5 days. She reports central abdominal pain that has been ongoing for 3 days. She reports vomiting began yesterday, nonbloody, nonbilious. Denies any chest pain or shortness of breath. No palpitations. No fever, chills or otherwise recent illnesses. Denies any urinary complaints. Reports that she thought she had a UTI about 2 weeks ago, but did not take antibiotics. No additional medical complaints. Patient reports that because of the vomiting, she came to the ED today. Related Data Home Medications ?Medication ?Instructions ?Recorded ?Confirmed fluticasone propionate 50 2 spray intranasal DAILY 08/27/23 12/24/24 mcg/actuation nasal spray,suspension loratadine 10 mg tablet 10 mg PO QAM 03/30/24 12/24/24 cholecalciferol (vitamin D3) 50 50 mcg PO DAILY 06/18/24 12/24/24 mcg (2,000 unit) capsule lidocaine 5 % topical patch 1 patch topical DAILY 06/18/24 12/24/24 norethindrone 1.5 mg-ethinyl 1 tab PO DAILY 12/24/24 12/24/24 estradiol 30 mcg(21)/iron 75 mg(7) tablet (Junel FE 1.5/30 (28)) semaglutide 0.25 mg or 0.5 mg (2 0.25 mg subcut QWEEK 06/27/25 mg/3 mL) subcutaneous pen injector (Ozempic) simethicone 80 mg chewable tablet 80 mg PO 06/27/25 Previous Rx's ?Medication ?Instructions ?Recorded magnesium citrate (Citrate of 150 ml PO DAILY PRN constipation 03/30/24 Magnesia oral) #296 mL docusate sodium 100 mg capsule 200 mg (2 x 100 mg) PO BEDTIME 06/18/24 #180 caps hydrocortisone 2.5 % topical cream 1 appl CO BID-QID PRN hemorrhoids 06/18/24 with perineal applicator #30 grams (Proctosol HC) polyethylene glycol 3350 17 17 g PO DAILY #510 grams 08/27/24 gram/dose oral powder (Miralax) aluminum-mag hydroxide-simethicone 5 ml PO QID PRN indigestion #300 mL 09/25/24 400 mg-400 mg-40 mg/5 mL oral susp (Maalox Maximum Strength) metoclopramide HCl 10 mg tablet 10 mg PO Q6H PRN nausea and 11/04/24 vomiting #14 tabs cqjmtkxlev-wwaldrrbptqwa-bxgceiyz 1 cap PO TID PRN headache #10 caps 03/28/25 50 mg-300 mg-40 mg capsule (Fioricet) pregabalin 75 mg capsule 75 mg PO BID 14 days #28 caps 05/07/25 esomeprazole magnesium 40 mg 40 mg PO DAILY #30 caps 06/27/25 capsule,delayed release (Nexium) methylcellulose (laxative) 500 mg 500 mg PO DAILY #90 tabs 06/27/25 tablet (Citrucel) bisacodyl 5 mg tablet,delayed 10 mg (2 x 5 mg) PO BEDTIME #180 08/09/25 release tabs linaclotide 290 mcg capsule 290 mcg PO QAM #30 caps 08/09/25 (Linzess) amitriptyline 10 mg tablet 10 mg PO BEDTIME #30 tabs 08/16/25 ondansetron 4 mg disintegrating 4 mg PO Q8H PRN nausea and 08/16/25 tablet vomiting #14 tabs Allergies Allergy/AdvReac Type Severity Reaction Status Date / Time No Known Allergies Allergy Mild NOT Verified 08/16/25 11:22 APPLICABLE Review of Systems Review of Systems: ROS is otherwise negative unless mentioned in HPI. [facility] Past Medical History Medical History (Updated 08/17/25 @ 00:01 by Trudi Mari) Diabetes Anal pain Constipation Hemorrhoids with complication Pelvic varices Surgical History (Updated 06/27/25 @ 09:58 by GRANT Hankins) H/O tubal ligation History of hemorrhoidectomy Family History Family History Maternal Aunt Breast cancer in female Mother HTN (hypertension) Social History Social History Alcohol intake: former Patient Tobacco Use Status: Current everyday Tobacco user Tobacco use type: Cigarette Cigarette Packs Per Day: 0.5 Cigarettes Per Day: 10.0 Years Smoked: 16 Physical Exam ED Exam Exam: Nursing notes and vital signs reviewed. Constitutional: Well-appearing, NAD. Alert. Oriented X3. Eyes:EOMI. ENT: Pharynx normal. Neck: Normal inspection. Neck supple. CVS: Normal heart rate and rhythm. Pulses normal. Respiratory: No respiratory distress. Breath sounds normal. Abdomen: Soft, nondistended, nontender. No CVA tenderness bilaterally Skin: Skin warm and dry. Normal skin color. Extremities: No lower extremity edema. Neuro: Oriented X 3. No motor deficit. Vital Signs: Vital Signs - 24 hr 08/16/25 15:01 08/16/25 17:08 Temperature 97.7 F 97.5 F Pulse Rate 84 86 Respiratory Rate 18 16 Blood Pressure 118/78 97/65 Pulse Oximetry 97 98 Oxygen Delivery Method Room Air Room Air BMI result Body Mass Index 33.5 Course Course Course Narrative: RME: 40 year female presents to generalized abdominal pain with diarrhea pain syndrome epigastric area for the past 3 days. Vomiting for 1 day. Patient states history of diabetes but glucose under control. Labs EKG swabs ordered Medications Administered Discontinued Medications Generic Name Dose Route Start Last Admin Trade Name Freq PRN Reason Stop Dose Admin Sodium Chloride 1,000 mls @ 999 mls/hr 08/16/25 15:06 08/16/25 16:15 Ns IV 08/16/25 16:06 Infused .Q1H1M ONE Infusion Iohexol 100 ml 08/16/25 16:08 08/16/25 16:09 Iohexol 350 Mg/Ml 100 Ml Infus..Btl IV 08/16/25 16:09 85 ml ONCE ONE Administration Ketorolac Tromethamine 15 mg 08/16/25 15:06 08/16/25 15:13 Ketorolac Tromethamine 15 Mg/Ml Vial IVPUSH 08/16/25 15:07 15 mg ONCE ONE Administration Ondansetron HCl 4 mg 08/16/25 15:06 08/16/25 15:13 Ondansetron Hcl 4 Mg/2 Ml Vial IVPUSH 08/16/25 15:07 4 mg ONCE ONE Administration Medical Decision Making Medical Decision Making MDM Narrative: Upon my initial assessment of the patient, she overall appears well. Lab work was performed in triage, which shows no leukocytosis, normal LFTs as well as a flat lipase level. Troponin is also negative. HCG is negative as well. She tells me that she has had generalized abdominal pain ongoing for the past 5 days now, has not found anything rrid-gtf-nybpfpo to help. No similar episodes in the past. Viral panel was also negative here. She reports her abdomen is very uncomfortable. Therefore, I proceeded with CT of the abdomen and pelvis given she had subjective abdominal tenderness throughout the entire exam. This showed no acute abnormality to explain her symptoms. However, there is a small bubble of gas in the bladder. Unclear etiology behind this. Does not have a history of an vaginal fistula, no recent Nolan catheter or straight catheterization. Urinalysis is negative in the ED today. She is vitally stable. Afebrile. No tachycardia. I spoke with Urology on-call Dr. Alcantar. Agreeable with the plan that the patient can be discharged home and follow up with Urology on a nonurgent basis. I relayed this with the patient. She is agreeable with the plan. I will prescribe a short course of antiemetics. Given return precautions to the ED. Differential Diagnosis Differential Diagnoses: The differential diagnosis associated with the presentation includes UTI, viral infection, colitis Admission/Observation Consideration of admission/observation: Escalation of care including admission/observation considered (Not indicate) Consult Healthcare Provider Management of the patient was discussed with: Digital Media Associate (Urology) Lab Data [facility] Lab Attestation statement: I reviewed the patient's lab results. (Reassuring overall.) 08/16/25 11:43 08/16/25 11:43 Labs: Lab Results 08/16/25 Range/Units 11:43 WBC 9.3 (4.8-10.8) X10*3/uL RBC 4.35 (4.20-5.50) X10*6/uL Hgb 13.3 (12.0-16.0) g/dl Hct 40.4 (37.0-47.0) % MCV 92.9 (80.0-98.0) fL MCH 30.6 (27.0-33.0) pg MCHC 32.9 (31.0-35.0) g/dl RDW 13.2 (11.0-16.0) % Plt Count 389 (160-400) X10*3/uL MPV 8.9 L (9.4-12.3) fL Immature Gran % (Auto) 0.3 (0.0-0.4) % Neut % (Auto) 70.1 (45-73) % Lymph % (Auto) 21.8 (20-40) % [place] % (Auto) 6.3 (2-11) % Eos % (Auto) 1.3 (0-4) % Baso % (Auto) 0.2 (0-2) % Lymph # (Auto) 2.0 (1.2-4.9) X10*3/uL [place] # (Auto) 0.6 (0.1-1.2) X10*3/uL Eos # (Auto) 0.1 (0.0-0.4) X10*3/uL Baso # (Auto) 0.0 (0.0-0.2) X10*3/uL Abs Immat Gran (auto) 0.03 (0.00-0.03) X10*3/uL Absolute Neuts (auto) 6.5 (2.0-8.3) x10*3/uL Absolute Nucleated RBC 0.000 (0.0-0.012) X10*3/uL Nucleated RBC % (auto) 0.0 (0.0-0.2) /100WBC Sodium 141 (135-145) mmol/L Potassium 3.9 (3.3-5.1) mmol/L Chloride 108 (96-108) mmol/L Carbon Dioxide 28 (22-29) mmol/L Anion Gap 9 L (12-20) BUN 18 H (9-16) mg/dL Creatinine 0.62 (0.5-1.4) mg/dL Estim Creat Clear Calc 141.4 Estimated GFR > 60 Random Glucose 112 (60-115) mg/dL Calcium 9.3 (8.4-10.2) mg/dL Total Bilirubin 0.8 (0.0-1.0) mg/dL AST 21 (5-31) U/L ALT 30 (0-31) U/L Alkaline Phosphatase 85 (39-117) U/L Troponin I High Sens < 2.7 (<3.5-17.0) ng/L Total Protein 7.4 (6.5-8.0) g/dL Albumin 4.5 (3.5-5.0) g/dL Lipase 23 (8-78) U/L Beta HCG, Quant < 2 mIU/mL Urine Color Dark Yellow Urine Appearance Clear Urine pH 5.0 (5.0-9.0) Ur Specific Gray >= 1.030 H (1.005-1.025) Urine Protein Trace (Neg-Trace) mg/dL Urine Glucose (UA) Negative (Negative) mg/dL Urine Ketones Negative (Negative) mg/dL Urine Blood Negative (Negative) Urine Nitrite Negative (Negative) Ur Leukocyte Esterase Negative (Negative) Influenza Type A (PCR) NEGATIVE (Negative) Influenza Type B (PCR) NEGATIVE (Negative) RSV RNA Qual (PCR) NEGATIVE (Negative) SARS-CoV-2 RNA (RT-PCR) NEGATIVE (Negative) Independent Interpretation I performed an independent interpretation of an: EKG Interpretation: Rate: 85 Rhythm: NSR [place]: 04/13/18 Normal P waves. Normal KARLENE. Normal QRS complex. ST T wave : no dep, elev qTC: 426 prior studies: similar The study has been interpreted contemporaneously by me. Radiology Impression Discussion of test interpretation with radiology: I have reviewed the radiologist's reading. Radiologist Impression: CT/CT abdomen pelvis w IV con IMPRESSION: No acute abnormality to explain the patient's abdominal pain There is a small bubble of gas in the bladder. Correlate for history of recent catheterization. Otherwise, consider possible etiologies such as enteric or vaginal fistula, or gas-forming organisms. Independent Historian None External Record Review External record reviewed: Outpatient record, Prior outpatient labs and Outside ED record Chronic Conditions Patient?s care impacted by: Other Prev. Dysuria Social Determinants Patient?s care significantly limited by Social Determinants of Health including: Problems related to primary support group Discharge Plan Discharge Clinical Impression: Nausea & vomiting, Abdominal pain Patient Disposition: Home, Self-Care Instructions: Abdominal Pain (ED) Additional Instructions: As we discussed, your workup today was overall reassuring including your lab work, urinalysis, and viral panel that was negative for COVID, flu, RSV. Your CT scan however showed evidence of a bubble of gas within the bladder. We spoke to Urology regarding this finding, and they are agreeable that have you see them on an outpatient basis. I have listed them below for your convenience. Please use the prescribed Zofran as needed for nausea and vomiting. You may use Tylenol, ibuprofen for pain. With any worsening complaints, return back to the ED for assessment. Prescriptions: New ondansetron 4 mg tablet,disintegrating 4 mg PO Q8H PRN (Reason: nausea and vomiting) Qty: 14 0RF No Action bisacodyl 5 mg tablet,delayed release (DR/EC) 10 mg PO BEDTIME Qty: 180 4RF Linzess 290 mcg capsule 290 mcg PO QAM Qty: 30 4RF alum-mag hydroxide-simeth [Maalox Maximum Strength] 400-400-40 mg/5 mL suspension 5 ml PO QID PRN (Reason: indigestion) Qty: 300 0RF metoclopramide HCl 10 mg tablet 10 mg PO Q6H PRN (Reason: nausea and vomiting) Qty: 14 0RF aarnasvhad-zcdtrqpcextil-owcg [Fioricet] 50-300-40 mg capsule 1 cap PO TID PRN (Reason: headache) Qty: 10 0RF pregabalin 75 mg capsule 75 mg PO BID 14 Days Qty: 28 0RF fluticasone propionate 50 mcg/actuation spray,suspension 2 spray intranasal DAILY loratadine 10 mg tablet 10 mg PO QAM magnesium citrate [Citrate of Magnesia] Solution 150 ml PO DAILY PRN (Reason: constipation) Qty: 296 5RF simethicone 80 mg tablet,chewable 80 mg PO Ozempic 0.25 mg or 0.5 mg (2 mg/3 mL) pen injector 0.25 mg subcut QWEEK Citrucel 500 mg tablet 500 mg PO DAILY Qty: 90 2RF Rx Instructions: take it with full glass of water esomeprazole magnesium [Nexium] 40 mg capsule,delayed release(DR/EC) 40 mg PO DAILY Qty: 30 3RF lidocaine 5 % adhesive patch,medicated 1 patch topical DAILY cholecalciferol (vitamin D3) 50 mcg (2,000 unit) capsule 50 mcg PO DAILY docusate sodium 100 mg capsule 200 mg PO BEDTIME Qty: 180 3RF hydrocortisone [Proctosol HC] 2.5 % cream with perineal applicator 1 appl CO BID-QID PRN (Reason: hemorrhoids) Qty: 30 2RF polyethylene glycol 3350 [Miralax] 17 gram/dose powder 17 g PO DAILY Qty: 510 2RF norethindrone-e.estradiol-iron [.5/ (28)] 1.5 mg-30 mcg (21)/75 mg (7) tablet 1 tab PO DAILY amitriptyline 10 mg tablet 10 mg PO BEDTIME Qty: 30 3RF Referrals: Rupal Mercedes MD [Physician, Urology] Casie Angulo DO [Primary Care Provider, Internal Medicine] Discharge Date/Time: 08/16/25 17:16 Print Language: Latvian
[2025-08-16 11:47] LABS: MANUAL DIFF FLAG NO
[2025-08-16 11:51] LABS: Appearance Urine Clear; Glucose Urine UA Negative (Negative); PH 5.0 (5.0-9.0); Specific Gravity - Urine >= 1.030 (1.005-1.025)
[2025-08-16 11:54] LABS: Hematocrit 40.4 % (37.0-47.0); Hemoglobin 13.3 g/dl (12.0-16.0); Imm Gran Abs Auto 0.03 X10*3/uL (0.00-0.03); Imm Gran Pct Auto 0.3 % (0.0-0.4); Lymphocytes Absolute Auto 2.0 X10*3/uL (1.2-4.9); Mean Corpuscular HGB Conc 32.9 g/dl (31.0-35.0); Mean Corpuscular Hemoglobin 30.6 pg (27.0-33.0); Mean Corpuscular Volume 92.9 fL (80.0-98.0); NRBC Abs Auto 0.000 X10*3/uL (0.0-0.012); NRBC Pct Auto 0.0 /100WBC (0.0-0.2); Platelet Count 389 X10*3/uL (160-400); Red Blood Count 4.35 X10*6/uL (4.20-5.50); White Blood Count 9.3 X10*3/uL (4.8-10.8)
[2025-08-16 12:11] LABS: Alanine Aminotransferase 30 U/L (0-31); Albumin Level 4.5 g/dL (3.5-5.0); Alkaline Phosphatase 85 U/L (39-117); Anion Gap 9 (12-20); Aspartate Amino Transferase 21 U/L (5-31); Blood Urea Nitrogen 18 mg/dL (9-16); Calcium 9.3 mg/dL (8.4-10.2); Carbon Dioxide 28 mmol/L (22-29); Chloride 108 mmol/L (96-108); Creatinine Clr Calc Pharmacy 141.4; Estimated Glomerular Filt Rate > 60; Lipase 23 U/L (8-78); Potassium 3.9 mmol/L (3.3-5.1); Sodium 141 mmol/L (135-145); Total Protein 7.4 g/dL (6.5-8.0)
[2025-08-16 12:13] LABS: Troponin-I High Sensitivity < 2.7 ng/L (<3.5-17.0)
[2025-08-16 12:33] LABS: Resp Syncy Virus RNA Qual PCR NEGATIVE (Negative); SARS COV2 PCR INHOUSE NEGATIVE (Negative)
[2025-08-16 15:01] VITALS: BP 118/78; PULSE 84; RESP 18; TEMP 36.5; O2SAT 97
[2025-08-16] MEDS: iohexoL 350 MG/ML 100 ML INFUS..BTL IV (16:09)
--- NOTE | 2025-08-16 17:06 | PC.NURSE ---
Patient presents to ED with complaints of N/V/D. Diarrhea started 5 days ago with abdominal pain and vomiting began last night. Patient states she has not been able to keep anything down. VSS. IV in right FA. Waiting on CT scan.
[2025-08-16 17:08] VITALS: BP 97/65; PULSE 86; RESP 16; TEMP 36.4; O2SAT 98
== END 2025-08-16 17:16 | disposition home or self-care (01) ==
PROVIDERS: Physician Assistant; Emergency Provider Emergency Medicine; PCP Family Medicine
DX: R10.13 Epigastric pain (principal); R11.2 Nausea with vomiting, unspecified; E11.9 Type 2 diabetes mellitus without complications; Z72.0 Tobacco use; Z03.818 Encounter for observation for suspected exposure to other biological agents ruled out
CPT/HCPCS: 74177; 80053; 81003; 83690; 84484; 84702; 85025; 87637; 93005; 96361; 96374; 96375; 99284; 99285; J1885; J2405; Q9967

== ENCOUNTER → 2025-08-16 11:26 | Outpatient (BNV) | payer OTHER, SELFPAY | PROVIDERS: PCP Family Medicine; Visit Provider Internal Medicine Cardiovascular Disease | DX: R10.9 Unspecified abdominal pain (principal) | CPT/HCPCS: 93010 ==

== ENCOUNTER → 2025-08-16 15:06 | Outpatient (BNV) | payer OTHER, SELFPAY | PROVIDERS: Emergency Provider Emergency Medicine; PCP Family Medicine; Visit Provider Radiology Diagnostic Radiology | DX: N32.89 Other specified disorders of bladder (principal) | CPT/HCPCS: 74177 ==